=== PATIENT | female | born 1945 | race Caucasian/White ===

== ENCOUNTER 2019-09-03 13:37 | Emergency (ER) | payer OTHER, SELFPAY ==
--- NOTE | ~2019-09-03 | US_ITS ---
EXAMINATION: US venous doppler UE DATE: 09/03/2019 14:54 INDICATION: Dialysis site hematoma with left arm swelling post dialysis TECHNIQUE: Mcdermott scale images with and without compression and Doppler images of the left upper extrem ity veins were obtained. COMPARISON: None. FINDINGS: The left internal jugular vein, subclavian vein, axillary vein, brachial veins, basilic vein, cephali c vein, radial vein, and ulnar vein are patent. No evidence for abnormal fluid collection or mass in the area of dialysis site. IMPRESSION: 1. Patent left upper extremity veins. No evidence of deep venous thrombosis. Reviewed, dictated and finalized at location A.
[2019-09-03 13:56] VITALS: BP 132/57; PULSE 80; RESP 16; O2SAT 95
--- NOTE | 2019-09-03 14:13 | ED.GENADULT ---
HPI - General Adult General Chief complaint: Extremity Injury, Upper Stated complaint: bruising to left arm fistula Time Seen by Provider: 09/03/19 14:02 Source: patient and family Mode of arrival: ambulatory Limitations: no limitations History of Present Illness HPI narrative: Patient is a 73-year-old female with a history of end-stage renal disease, on dialysis Monday, Monday, Monday who presents for evaluation of a one-week history of worsening left upper extremity swelling starting her dialysis site. She reports that suddenly a week ago her dialysis site was bruised, painful, bruising has been improving, but swelling has persisted. Patient attended dialysis yesterday and had no complications with her catheter site. Patient follows Dr. Freeman, physician as well as the patient wanted to rule out a blood clot in the left upper extremity. Patient has denied any numbness, pain. No systemic fever, chills, nausea or vomiting. No shortness of breath. No pain in the hand or elbow. No falls or injury. Related Data Home Medications Medication Instructions Recorded Confirmed B complex with C 20-folic acid 1 cap PO DAILY 09/03/19 [Triphrocaps] atorvastatin 40 mg PO DAILY 09/03/19 hydralazine 25 mg PO QID 09/03/19 linagliptin [Tradjenta] 10 mg PO QID 09/03/19 melatonin 10 mg PO HS PRN 09/03/19 ondansetron HCl [Zofran] 4 mg PO Q6H 09/03/19 pantoprazole 40 mg PO QAM 09/03/19 tramadol 100 mg PO Q6H PRN 09/03/19 Allergies Allergy/AdvReac Type Severity Reaction Status Date / Time ibuprofen Allergy Mild Abdominal Verified 09/03/19 13:59 Pain Review of Systems Review of Systems: Narrative: CONSTITUTIONAL: Denies fever, chills, or sweats. ENT: Denies rhinorrhea, congestion, sore throat, or otalgia. CARDIOVASCULAR: Denies chest pain, palpitations, or edema. RESPIRATORY: Denies cough or dyspnea. GASTROINTESTINAL: Denies abdominal pain, nausea, vomiting, or diarrhea. SKIN: Reports bruising left upper extremity MUSCULOSKELETAL: Denies back pain, joint pain, or myalgia. NEUROLOGIC: Denies headache, numbness, or weakness. [facility] Past Medical History Medical History (Updated 04/28/20 @ 15:38 by Tiara Urrutia MD) Arthritis Chronic kidney disease Depression Diabetes Gout Hypertension Hypothyroidism Nephrolithiasis Pneumonia Surgical History Surgical History (Updated 09/03/19 @ 14:17 by Tiara Urrutia MD) H/O inguinal hernia repair Hx of tonsillectomy Social History Social History (Updated 09/03/19 @ 14:18 by Tiara Urrutia MD) Smoking status: Never smoker Alcohol intake: never Substance use: never Gender identity (if verbalized by the patient): Female Exam Narrative: Exam Narrative: GENERAL: Awake, alert, conversant HEAD: Normocephalic, atraumatic. EYES: PERRLA and EOMI. ENT: Nares clear, no rhinorrhea or epistaxis. Mucous membranes moist. NECK: Supple. CHEST: No respiratory distress, breathing even and non labored HEART: Regular rate, sinus rhythm ABDOMEN:Non distended, non tender EXTREMITIES: Normal range of motion. Old ecchymosis, hematoma to left upper extremity, mildly firm, overall compartment is soft. Intact bruit over the dialysis catheter site. Radial pulses 2+. No numbness. Intact sensation. Forging [employer] Sinker strength 5 out of 5. Intact sensation m/u/r nerve distribution. SKIN: Warm, dry, no rash. NEURO:No focal deficits. Alert and oriented x3 Course Vital Signs Vital signs: Vital Signs Pulse Rate 80 09/03/19 13:56 Respiratory Rate 16 09/03/19 13:56 Blood Pressure 132/57 L 09/03/19 13:56 Pulse Oximetry 95 09/03/19 13:56 Pulse Rate 80 09/03/19 13:56 Respiratory Rate 16 09/03/19 13:56 Blood Pressure 132/57 L 09/03/19 13:56 Pulse Oximetry 95 09/03/19 13:56 Medical Decision Making MDM Narrative Medical decision making narrative: Patient presented to the emergency department for evaluation of left upper extremity edema, swelling surround
[2019-09-03 15:20] LABS: Basophils Percent Auto 0.4 % (0.2-1.2); Eosinophils Absolute Auto 0.1 K/mm3 (0-0.3); Eosinophils Percent Auto 1.2 % (0-4.4); Hematocrit 36.3 % (37.0-47.0); Hemoglobin 11.4 g/dL (12.0-15.0); Immature Granulocyte Absolute 0.04 K/mm3 (0.00-0.031); Immature Granulocyte Percent A 0.6 % (0-0.5); Lymphocytes Absolute Auto 1.31 K/mm3 (0.9-3.2); Lymphocytes Percent Auto 19.1 % (18.3-44.2); Mean Corpuscular HGB Conc 31.4 g/dl (32-36); Mean Corpuscular Hemoglobin 31.2 pg (26-34); Mean Corpuscular Volume 99.5 fl (80-100); Mean Platelet Volume 10.9 fl (7.4-10.4); Monocytes Absolute Auto 0.4 K/mm3 (0.1-0.6); Monocytes Percent Auto 5.2 % (2.6-8.5); Neutrophils Percent Auto 73.5 % (45.5-73.1); Platelet Count Result 141 k/mm3 (150-375); Red Blood Count 3.65 M/mm3 (4.2-5.4); Red Cell Distribution Width 13.1 % (11.5-14.5); White Blood Count 6.9 K/mm3 (4.5-10.0)
[2019-09-03 15:29] LABS: Prothrombin Time 12.7 Seconds (11.1-14.7)
[2019-09-03 15:32] LABS: Blood Urea Nitrogen 46 mg/dL (7-17); Calcium 8.6 mg/dL (8.4-10.2); Carbon Dioxide 27 mmol/L (22-30); Chloride 100 mmol/L (98-107); Estimated Glomerular Filt Rate 10; Glucose 128 mg/dL (65-105); Potassium 4.8 mmol/L (3.4-5.0); Sodium 136 mmol/L (137-145)
[2019-09-03 15:52] VITALS: BP 126/60; PULSE 73; RESP 16; TEMP 36.2; O2SAT 96
== END 2019-09-03 15:54 | disposition home or self-care (01) ==
PROVIDERS: Emergency Provider Emergency Medicine; PCP Family Medicine Adolescent Medicine
DX: S40.022A Contusion of left upper arm, initial encounter (principal); I12.0 Hypertensive chronic kidney disease with stage 5 chronic kidney disease or end stage renal disease; N18.6 End stage renal disease; Z99.2 Dependence on renal dialysis; M19.90 Unspecified osteoarthritis, unspecified site; F32.9 Major depressive disorder, single episode, unspecified; E03.9 Hypothyroidism, unspecified; X58.XXXA Exposure to other specified factors, initial encounter
CPT/HCPCS: 36415; 80048; 85025; 85610; 85730; 93971; 99284

== ENCOUNTER → 2021-03-06 00:58 | Outpatient (CLI) | payer OTHER, SELFPAY ==
[2021-03-06 18:23] LABS: SARS-CoV-2 RNA PCR Negative
== END ==
PROVIDERS: PCP Family Medicine Adolescent Medicine; Visit Provider Family Medicine Adolescent Medicine
DX: R05.9 Cough, unspecified (principal); Z20.822 Contact with and (suspected) exposure to COVID-19
CPT/HCPCS: C9803; U0003; U0005

== ENCOUNTER 2021-08-25 17:51 | Emergency (ER) | payer OTHER, SELFPAY ==
--- NOTE | ~2021-08-25 | XR_ITS ---
EXAMINATION: XR chest 1V portable INDICATION: Cough, history of hypertension TECHNIQUE: Portable AP chest at 1907 hours COMPARISON: 07/27/2017 FINDINGS: Cardiomegaly is noted. There is a mild diffuse interstitial pattern. There are no focal air space opacities. No pleural effusion or pneumothorax is identified. IMPRESSION: 1. Cardiomegaly with mild pulmonary edema. Reviewed, dictated and finalized at location F.
[2021-08-25 17:53] VITALS: BP 196/71; RESP 18; TEMP 36.4; O2SAT 97
[2021-08-25 18:15] LABS: Basophils Percent Auto 0.3 % (0.2-1.2); Eosinophils Absolute Auto 0.1 K/mm3 (0-0.3); Eosinophils Percent Auto 0.9 % (0-4.4); Hematocrit 32.5 % (37.0-47.0); Hemoglobin 10.3 g/dL (12.0-15.0); Immature Granulocyte Absolute 0.03 K/mm3 (0.00-0.031); Immature Granulocyte Percent A 0.5 % (0-0.5); Lymphocytes Absolute Auto 0.73 K/mm3 (0.9-3.2); Lymphocytes Percent Auto 11.4 % (18.3-44.2); Mean Corpuscular HGB Conc 31.7 g/dl (32-36); Mean Corpuscular Volume 100.9 fl (80-100); Mean Platelet Volume 10.2 fl (7.4-10.4); Monocytes Absolute Auto 0.4 K/mm3 (0.1-0.6); Monocytes Percent Auto 5.6 % (2.6-8.5); Neutrophils Absolute Auto 5.2 K/mm3 (1.3-6.7); Neutrophils Percent Auto 81.3 % (45.5-73.1); Platelet Count Result 121 k/mm3 (150-375); Red Blood Count 3.22 M/mm3 (4.2-5.4); Red Cell Distribution Width 12.9 % (11.5-14.5); White Blood Count 6.4 K/mm3 (4.5-10.0)
[2021-08-25 18:27] LABS: Alanine Aminotransferase 18 U/L (4-35); Albumin Level 4.3 g/dL (3.5-5.1); Alkaline Phosphatase 87 U/L (38-126); Anion Gap 8 mmol/L (8-16); Aspartate Amino Transferase 32 U/L (14-36); Bilirubin,Total 0.5 mg/dL (0.2-1.3); Blood Urea Nitrogen 39 mg/dL (7-17); Carbon Dioxide 25 mmol/L (22-30); Chloride 101 mmol/L (98-107); Estimated Glomerular Filt Rate 9; Glucose 124 mg/dL (65-110); Lipase 222 U/L (23-300); Potassium 5.5 mmol/L (3.4-5.0); Sodium 134 mmol/L (137-145)
[2021-08-25 19:30] VITALS: O2SAT 96
--- NOTE | 2021-08-25 19:48 | ED.GENADULT ---
HPI - General Adult General Chief complaint: Upper Respiratory Infection Stated complaint: cough & diarrhea x 2 weeks Time Seen by Provider: 08/25/21 18:04 Source: patient and family Mode of arrival: ambulatory Limitations: no limitations History of Present Illness HPI narrative: 75-year-old with a history of hypertension, diabetes, ESRD on dialysis Monday here with complaints of cough for past few weeks. Patient states that occasionally the cough is productive in nature. She denies any fever or chills. Patient states that she has missed 2 dialysis treatment as she states that she was not feeling too well. She denies nausea or vomiting. She endorses Dr. Freeman as her maltster. She also states that her primary called and [facility] and [facility] for her cough Onset (ago): week(s) (2) Severity: mild Relieving factors: none Associated symptoms: denies other symptoms Related Data Home Medications Medication Instructions Recorded Confirmed linagliptin [Tradjenta] 5 mg PO QID 09/03/19 Allergies Allergy/AdvReac Type Severity Reaction Status Date / Time ibuprofen Allergy Mild Abdominal Verified 08/25/21 18:01 Pain Review of Systems Review of Systems: All systems reviewed & are unremarkable except as noted in HPI and below Constitutional: Constitutional: Reports no additional constitutional complaints Eyes: Eyes: Reports no additional eye complaints ENT: Reports system reviewed and no additional complaints, except as documented Cardiovascular: Cardiovascular: Reports no additional cardiovascular complaints Respiratory: Respiratory: Reports as per HPI Gastrointestinal: Gastrointestinal: Reports no additional gastrointestinal complaints Musculoskeletal: Musculoskeletal: Reports no additional musculoskeletal complaints Integumentary/Breasts: Skin/Breast: Reports system reviewed and no additional complaints, except as docu Neurologic: Reports system reviewed and no additional complaints, except as documented Endocrine: Endocrine: Reports no additional endocrine complaints [facility] Past Medical History Medical History Arthritis Chronic kidney disease Depression Diabetes Gout Hypertension Hypothyroidism Nephrolithiasis Pneumonia Primary localized osteoarthritis of knees, bilateral Surgical History Surgical History H/O inguinal hernia repair Hx of tonsillectomy Social History Social History Smoking status: Never smoker Alcohol intake: never Substance use: never Gender identity (if verbalized by the patient): Female Exam Narrative: GENERAL: Well-appearing, well-nourished, and in no acute distress. HEAD: Normocephalic, atraumatic. EYES: PERRLA and EOMI.. NECK: Supple. CHEST: Clear to auscultation. No respiratory distress. HEART: Regular rate and rhythm. No murmur heard. Normal peripheral pulses. ABDOMEN: Soft, nontender, nondistended, normal active bowel sounds. EXTREMITIES: Normal range of motion. No edema. SKIN: Warm, dry, no rash. NEURO: No focal deficits. Alert and oriented x3. PSYCH: Normal mood and affect. Course Course Emergency Course: Her physical is unremarkable , chest x-ray showed no evidence of pneumonia. I discussed with Dr. Freeman recommended Lokelma 10 g p.o. prior to discharge I did inform patient about her lab work, chest x-ray findings. Recommended her to get dialysis tomorrow. Vital Signs Vital signs: Vital Signs Temperature 36.4 C 08/25/21 17:53 Respiratory Rate 18 08/25/21 17:53 Blood Pressure 196/71 H 08/25/21 17:53 Pulse Oximetry 97 08/25/21 17:53 Temperature 36.4 C 08/25/21 17:53 Respiratory Rate 18 08/25/21 17:53 Blood Pressure 196/71 H 08/25/21 17:53 Pulse Oximetry 97 08/25/21 17:53 Medical Decision Making Vital Signs Vital Signs: Vi
[2021-08-25] MEDS: SODIUM ZIRCONIUM CYCLOSILICATE 10 GM POWD.PACK PO (19:55)
[2021-08-25 20:22] VITALS: BP 162/98; PULSE 84; RESP 16; O2SAT 96
== END 2021-08-25 20:03 | disposition home or self-care (01) ==
PROVIDERS: Emergency Provider Family Medicine; PCP Family Medicine Adolescent Medicine
DX: J40 Bronchitis, not specified as acute or chronic (principal); E87.5 Hyperkalemia; M19.90 Unspecified osteoarthritis, unspecified site; I12.9 Hypertensive chronic kidney disease with stage 1 through stage 4 chronic kidney disease, or unspecified chronic kidney disease; E11.22 Type 2 diabetes mellitus with diabetic chronic kidney disease; N18.9 Chronic kidney disease, unspecified; F32.9 Major depressive disorder, single episode, unspecified; E03.9 Hypothyroidism, unspecified
CPT/HCPCS: 36415; 71045; 80053; 83690; 85025; 99283; A9270

== ENCOUNTER 2021-12-03 16:54 | Inpatient (IN) | payer OTHER, SELFPAY ==
[2021-12-03] VITALS (8 sets, daily range): BP systolic 122–145; BP diastolic 51–61; PULSE 71–110; RESP 16–28; TEMP 36.1–36.8; O2SAT 88–99; BMI 36.4
--- NOTE | ~2021-12-03 | XR_ITS ---
XR chest 2V 12/03/2021 17:32 Indication: Shortness of breath. Hypertension. Pneumonia. Procedure: 2 view chest Comparison: Comparison to multiple prior studies sequentially, with oldest reviewed study dated 07/2003. Findings: Interval development of extensive bilateral airspace consolidation, pneumonia versus edema. Small right pleural effusion. No pneumothorax. Cardiomegaly. There is atherosclerosis. Impression: 1: Extensive bilateral airspace disease which may represent pneumonia or edema. 2: Small right pleural effusion. 3: Cardiomegaly. Reviewed, dictated and finalized at location A. Impression: 1: Extensive bilateral airspace disease which may represent pneumonia or edema. 2: Small right pleural effusion. 3: Cardiomegaly.
--- NOTE | ~2021-12-03 | XR_ITS ---
EXAMINATION: XR chest 1V portable DATE: 12/07/2021 06:56 INDICATION: Pneumonia. TECHNIQUE: A single frontal view of the chest was obtained. COMPARISON: Chest 2 views 12/03/2021, CT abdomen and pelvis 10/08/2017 FINDINGS: There are patchy airspace opacities in the mid and lower lung zones. No pleural effusion or pneumothorax. The heart size is normal. IMPRESSION: 1. Stable patchy airspace opacities in the mid and lower lung zones, consistent with pneumonia. Reviewed, dictated and finalized at location A.
--- NOTE | 2021-12-03 17:09 | ECG_ITS ---
Measurements Intervals [place] Rate: 86 P: 69 NV: 229 QRS: 19 QRSD: 163 T: -8 QT: 368 QTc: 443 Interpretive Statements SINUS RHYTHM WITH FIRST DEGREE AV BLOCK RIGHT BUNDLE BRANCH BLOCK BASELINE WANDER- V2-V6 ABNORMAL ECG Electronically Signed On 12-03-2021 20:27:33 CDT by Jose Luis Sánchez D.O.
[2021-12-03 18:04] LABS: SARS-CoV-2 RNA PCR Negative
[2021-12-03 18:06] LABS: Hematocrit 30.2 % (37.0-47.0); Hemoglobin 9.5 g/dL (12.0-15.0); Mean Corpuscular HGB Conc 31.5 g/dl (32-36); Mean Corpuscular Hemoglobin 31.9 pg (26-34); Mean Corpuscular Volume 101.3 fl (80-100); Mean Platelet Volume 9.5 fl (7.4-10.4); Platelet Count Result 140 k/mm3 (150-375); Red Blood Count 2.98 M/mm3 (4.2-5.4); Red Cell Distribution Width 13.3 % (11.5-14.5); White Blood Count 6.8 K/mm3 (4.5-10.0)
--- NOTE | 2021-12-03 18:06 | ED.SOB ---
HPI - SOB/Dyspnea General Chief Complaint: Shortness of Breath/Dyspnea Stated Complaint: SOB Time Seen by Provider: 12/03/21 17:03 History of Present Illness HPI Narrative: Patient is a 76-year-old female who presents ER with shortness of breath. Progressively worsening the last 4 days. Associate with cough. No fevers or chills or sweats. No lower extremity edema. She has had multiple COVID tests at home that been negative. She received dialysis today. Shortness of breath worsened to the point where EMS was called and she was found to be satting in the 80s on room air. Not typically oxygen dependent. Patient got her full dialysis treatment today. Related Data Allergies Allergy/AdvReac Type Severity Reaction Status Date / Time ibuprofen Allergy Mild Abdominal Verified 08/25/21 18:01 Pain Review of Systems Review of Systems: All systems reviewed & are unremarkable except as noted in HPI and below Constitutional: Constitutional: Reports chills, Reports fatigue and Reports fever(s) ENT: Denies dysphagia and Denies nasal congestion Cardiovascular: Cardiovascular: Denies chest pain and Denies rapid heart rate Respiratory: Respiratory: Reports cough, Reports dyspnea and Reports wheezing Gastrointestinal: Gastrointestinal: Denies nausea and Denies vomiting PMF Past Medical History Medical History Arthritis Chronic kidney disease Depression Diabetes Gout Hypertension Hypothyroidism Nephrolithiasis Pneumonia Primary localized osteoarthritis of knees, bilateral Surgical History Surgical History H/O inguinal hernia repair Hx of tonsillectomy Social History Social History Smoking status: Never smoker Alcohol intake: never Substance use: never Gender identity (if verbalized by the patient): Female Course Course Emergency Course: Given recent febrile illness with cough hypoxia and bandemia will admit for pneumonia and give IV antibiotics. Vital Signs Vital signs: Vital Signs Temperature 98.3 F 12/03/21 16:56 Pulse Rate 110 H 12/03/21 16:56 Respiratory Rate 28 H 12/03/21 16:56 Blood Pressure 145/52 H 12/03/21 16:56 Pulse Oximetry 88 L 12/03/21 16:56 Oxygen Delivery Room Air 12/03/21 16:56 Temperature 98.3 F 12/03/21 16:56 Pulse Rate 109 H 12/03/21 17:10 Respiratory Rate 28 H 12/03/21 16:56 Blood Pressure 145/52 H 12/03/21 16:56 Pulse Oximetry 94 12/03/21 19:01 Oxygen Delivery Nasal Cannula 12/03/21 19:01 Oxygen Flow Rate 4 12/03/21 19:01 MDM - SOB/Dyspnea Lab Data Result diagrams: 12/03/21 17:57 12/03/21 17:57 Labs: Lab Results 12/03/21 12/03/21 12/03/21 Range/Units 17:18 17:57 17:57 WBC 6.8 (4.5-10.0) K/mm3 RBC 2.98 L (4.2-5.4) M/mm3 Hgb 9.5 L (12.0-15.0) g/dL Hct 30.2 L (37.0-47.0) % MCV 101.3 H (80-100) fl MCH 31.9 (26-34) pg MCHC 31.5 L (32-36) g/dl RDW 13.3 (11.5-14.5) % Plt Count 140 L (150-375) k/mm3 MPV 9.5 (7.4-10.4) fl Immature Gran % (Auto) Not Reportable Neut % (Auto) Not Reportable Lymph % (Auto) Not Reportable Amelia % (Auto) Not Reportable Eos % (Auto) Not Reportable Baso % (Auto) Not Reportable Lymph # (Auto) Not Reportable Amelia # (Auto) Not Reportable Eos # (Auto) Not Reportable Baso # (Auto) Not Reportable Abs Immat Gran (auto) Not Reportable Absolute Neuts (auto) Not Reportable Absolute Nucleated RBC Not Reportable Total Counted 100 Neutrophils % (Manual) 78 H (46-73) % Band Neutrophils % 10 H (0-6) % Lymphocytes % (Manual) 6 L (18-44) % Monocytes % (Manual) 5 (3-9) % Eosinophils % (Manual) 1 (0-4) % Nucleated RBC % Not Reportable Abs Neuts (Manual) 5.98 (1.7-7.2) K/mm3 Abs L
[2021-12-03 18:18] LABS: Alanine Aminotransferase 22 U/L (6-35); Albumin Level 3.3 g/dL (3.5-5.1); Alkaline Phosphatase 138 U/L (38-126); Anion Gap 8 mmol/L (8-16); Aspartate Amino Transferase 35 U/L (14-36); Blood Urea Nitrogen 29 mg/dL (7-17); Calcium 9.2 mg/dL (8.4-10.2); Carbon Dioxide 35 mmol/L (22-30); Chloride 91 mmol/L (98-107); Estimated Glomerular Filt Rate 11; Glucose 249 mg/dL (65-110); Potassium 4.5 mmol/L (3.4-5.0); Sodium 134 mmol/L (137-145)
[2021-12-03 18:25] LABS: NT Pro B Type Natriuretic Pept 15300 pg/mL (5-100)
[2021-12-03 18:32] LABS: Band Neutrophils Percent 10 % (0-6); Eosinophils Absolute Manual 0.06 K/mm3 (0.02-0.5); Eosinophils Percent Manual 1 % (0-4); Lymphocytes Percent Manual 6 % (18-44); Monocytes Absolute Manual 0.34 K/mm3 (0.1-0.90); Monocytes Percent Manual 5 % (3-9); Neutrophils Absolute Manual 5.98 K/mm3 (1.7-7.2); Neutrophils Percent Manual 78 % (46-73); Total Cells Counted 100
--- NOTE | 2021-12-03 19:08 | PC.NURSE ---
Patient care report given to JOSUE Barnes. All questions answered at this time.
--- NOTE | 2021-12-03 19:11 | PC.NURSE ---
per EDP patient is allowed to eat. [place] and drink given.
--- NOTE | 2021-12-03 19:49 | PM.IMHP ---
H&P: HPI History of Present Illness Date/Time: 12/03/21 19:49 Chief Complaint: shortness of breath Narrative: this is a 76-year-old female with past medical history significant for end-stage renal disease on hemodialysis, tab [place] diabetes mellitus, hypertension, nephrolithiasis. patient presents today to the emergency room due to shortness of breath generalized weakness, fatigue, had to skip her dialysis due to not feeling well, patient denies any fevers, rigors, chills, night sweats, nausea, vomiting, abdominal pain. Preliminary workup was significant for chest x-ray1:Extensive bilateral airspace disease which may represent pneumonia or edema. 2: Small right pleural effusion. 3: Cardiomegaly. Review of Systems Review of Systems: shortness of breath feeling unwell generalized weakness, fatigue Constitutional: Constitutional: Denies chills, Reports fatigue, Denies fever(s), Reports lethargy, Reports malaise, Denies night sweats and Reports weakness Eyes: Eyes: Denies change in vision ENT: Denies dysphagia, Denies vertigo, Denies dizziness and Denies odynophagia Cardiovascular: Cardiovascular: Denies chest pain, Denies syncope, Denies irregular heart rhythm, Denies lightheadedness, Denies palpitations and Denies dyspnea on exertion Respiratory: Respiratory: Reports cough and Reports dyspnea Gastrointestinal: Gastrointestinal: Denies abdominal pain, Denies dyspepsia, Denies heartburn, Denies nausea and Denies vomiting Musculoskeletal: Musculoskeletal: Denies arthralgias and Denies joint swelling Integumentary/Breasts: Skin/Breast: Denies rash Neurologic: Denies vertigo, Denies dizziness, Denies focal weakness and Denies Sensory deficit (Neuro) Psychiatric: Psychiatric: Reports no additional psychiatric complaints and Reports as per HPI Endocrine: Endocrine: Denies cold intolerance, Denies fatigue, Denies flushing, Denies heat intolerance, Denies polyphagia, Denies polydipsia and Denies palpitations Hematologic/Lymphatic: Hematologic/Lymphatic: Reports no additional hematologic/lymphatic complaints and Reports as per HPI Allergic/Immunologic: Allergic/Immunologic: Reports no additional allergic/immunologic complaints and Reports as per HPI PMFSH Past Medical History Medical History Arthritis Chronic kidney disease Depression Diabetes Gout Hypertension Hypothyroidism Nephrolithiasis Pneumonia Primary localized osteoarthritis of knees, bilateral Surgical History Surgical History H/O inguinal hernia repair Hx of tonsillectomy Social History Social History Smoking status: Never smoker Alcohol intake: never Substance use: never Gender identity (if verbalized by the patient): Female Spiritual care concerns: No Meds Home Medications and Allergies Home Medications Medication Instructions Recorded Confirmed Type levothyroxine 112 mcg tablet 112 mcg PO DAILY #90 tabs 08/23/21 12/03/21 Rx azithromycin 250 mg tablet See Rx Instructions PO .COMPLEX #6 08/24/21 12/03/21 Rx tabs benzonatate 200 mg capsule 200 mg PO TID PRN cough #30 caps 08/24/21 12/03/21 Rx tramadol 50 mg tablet 100 mg PO Q6H PRN Pain (Scale 11/01/21 12/03/21 Rx Score 4-6) #120 tabs albuterol sulfate 90 mcg/actuation 2 inh inhalation QID PRN shortness 11/30/21 12/03/21 Rx aerosol inhaler of breath or wheezing #8.5 grams atorvastatin 40 mg tablet 40 mg PO DAILY 12/03/21 12/03/21 History linagliptin 5 mg tablet (Tradjenta) 5 mg PO DAILY 12/03/21 12/03/21 History ondansetron 4 mg disintegrating 4 mg translingual Q6H PRN Nausea 12/03/21 12/03/21 History tablet sertraline 50 mg tablet 50 mg PO DAILY 12/03/21 12/03/21 History Allergies Allergy/AdvReac Type Severity Reaction Status Date / Time ibuprofen Allergy Mild Abdominal Verified 12/03/21 23:22 Pain
[2021-12-03] MEDS: ALBUTEROL SULFATE NEB 2.5 MG/3 ML INH 5 MG INHALATION (20:02)
[2021-12-03] MEDS: IPRATROPIUM BR 0.02% INH SOLN 0.5 MG/2.5 ML VIAL INHALATION (20:02)
--- NOTE | 2021-12-03 23:39 | ADMGEN ---
This patient, Gisele Centeno, was admitted to [facility] Surg Room 309-01. Patient/family oriented to hospital policies and general routines including ID bracelet, bed and alarms, visiting hours, pain management, procedures, bathroom and other care routines, personal items, smoking policy, room service/diet, and visiting hours. Information on how to activate the Rapid Response Team has been discussed. Patient/Family are encouraged to report perceived risks to care and to ask questions if they do not understand what they are told or what they should do.
[2021-12-04] VITALS (26 sets, daily range): BP systolic 126–157; BP diastolic 46–83; PULSE 56–78; RESP 14–18; TEMP 36.1–37; O2SAT 94–100
[2021-12-04 02:10] LABS: Glucose Point of Care 330 mg/dl (65-105)
[2021-12-04] MEDS: ALBUTEROL SULFATE NEB 2.5 MG/3 ML INH 5 MG INHALATION ×3 (02:20→20:09)
[2021-12-04] MEDS: IPRATROPIUM BR 0.02% INH SOLN 0.5 MG/2.5 ML VIAL INHALATION ×3 (02:20→20:08)
[2021-12-04 08:16] LABS: Glucose Point of Care 219 mg/dl (65-105)
[2021-12-04] MEDS: ATORVASTATIN 40 MG TABLET PO (08:33)
[2021-12-04] MEDS: SERTRALINE HCL 50 MG TABLET PO (08:33)
[2021-12-04] MEDS: LEVOTHYROXINE SODIUM 112 MCG TABLET PO (08:33)
[2021-12-04] MEDS: INSULIN ASPART (*BKC) 100 UNITS/ML SUB-Q ×3 (08:33→12:08)
--- NOTE | 2021-12-04 09:05 | PM.IMPN ---
Progress Note: A&P Assessment and Plan (1) Pneumonia: Code(s): J18.9 - Pneumonia, unspecified organism Status: Acute Assessment and Plan: - Blood cultures are pending. - Continue IV abx of Rocephin and Azithromycin. - Monitor labs and VS. - Continue Atrovent Nebulizer treatment. - Continue supplemental oxygen. Consider weaning as tolerated. (2) End stage renal disease: Code(s): N18.6 - End stage renal disease Status: Chronic Assessment and Plan: - Awaiting Nephrology consult. - M-W- schedule and did receive treatment yesterday. - Monitor labs and VS. (3) Type 2 diabetes mellitus with diabetic chronic kidney disease: Code(s): E11.22 - Type 2 diabetes mellitus with diabetic chronic kidney disease Status: Acute Assessment and Plan: - SSI Low dose - Hypoglycemic protocol - Renal diet - Accu checks AC and HS. (4) Hypertensive chronic kidney disease with stage 1 through stage 4 chronic kidney disease, or unspecified chronic kidney disease: Code(s): I12.9 - Hypertensive chronic kidney disease with stage 1 through stage 4 chronic kidney disease, or unspecified chronic kidney disease Status: Chronic Assessment and Plan: - Continue home medications and monitor BP. Additional Plan Barrier to discharge: Improvement of breathing with weaning of supplemental oxygen, and resulting of Blood cultures. Awaiting Nephrology consult. Time Spent With Patient Time: 21 minutes Subjective Date/time seen: 12/04/21 09:04 This pleasant 76-year-old female patient is examined at the bedside in interval assessment after being admitted to the hospital for pneumonia with dyspnea. Requiring 3 L of supplemental oxygen to maintain her saturations currently. She does not normally wear oxygen at home. It was initially explained on presentation the patient had missed her dialysis session yesterday, however patient adamantly denies missing any dialysis and said she just felt bad during dialysis. She currently denies any chest pain, does report some continued cough that is productive at times of yellow sputum, some shortness of breath, no nausea, vomiting, diarrhea, urinary complaints. Her normal dialysis schedule is Monday. We are awaiting consult of Nephrology during this admission, however patient does appear to be euvolemic at this time. She reports that she is feeling slightly better today but is very tired. Review of Systems Review of Systems: Twelve point review of systems was obtained. All systems reviewed & are unremarkable except as noted in HPI and below Exam Const: General: comfortable and no acute distress HENMT: Ears: TM's normal bilaterally and TMs normal General nose exam: Normal nares present and no epistaxis Mouth: Yes moist mucous membranes Eyes: General: appearance normal, both eyes and all related structures Sclera: sclerae normal and normal sclerae Pupils: Equal, round and reactive pupils present EOM: EOMs intact bilaterally Neck: Neck: supple and no JVD Thyroid: thyroid normal Carotids: no bruits Lymphatic: lymphadenopathy not noted Resp: Effort & Inspection: normal respiratory effort Auscultation: crackles bilateral at the base Cardio: Rate: regular rate Rhythm: regular rhythm Heart sounds: no gallops, no murmurs and no rubs GI: Inspection: non-distended GI Palp: Yes Soft to palpation, No Tenderness to palpation present (GI) and No Guarding due to palpation present (GI) Auscultation: normal bowel sounds Skin: General skin exam: normal color and no rashes or lesions noted Lesions: no lesions noted Rashes: no rashes noted Wounds: no wounds Neuro: General: gait normal Speech: normal speech Motor exam (neuro): 5/5 motor strength present throughout and Normal motor muscle tone present throughout Sensory Exam: normal sensation Extrem: General: normal to inspection, no edema and no pedal edema Other: Left upper arm - av gra
--- NOTE | 2021-12-04 11:25 | PM.CNNEP ---
Assessment and Plan Additional Plan 1. Gisele has end-stage renal disease. This is most likely due to diabetes and hypertension. She gets dialysis 3 times a week at [facility]. She has been getting to her dry weight however, looking at the flow sheets over the last week she has come in at or below her dry weight for the last few treatments. 2. The patient has shortness of breath and cough. I suspect that she has lost weight and that we need to adjust her dry weight again. She probably isn't eating as well as she lets on and her daughter is corrected try to get her to eat more. There is a suspicion that she might have pneumonia as well. She has no fever and no white count. She is on antibiotics just in case until we figure this out. 3. the patient is on medication for her hyperlipidemia. 4. Patient has diabetes. Management per hospitalists. 5. The patient has hypertension. Her blood pressures have been up and down generally between 122 and 145. Removing fluid will help this. 6. The patient seems to have lost her appetite. She has no belly pain. No nausea. Will try Remeron. History of Present Illness Reason for Consult Consult date: 12/04/21 Chief Complaint Chief complaint: pneumonia, hypoxia History of Present Illness Narrative: Gisele is a very pleasant 76-year-old lady who has multiple medical problems including end-stage renal disease on dialysis 3 times a week at [facility], hyperlipidemia, reversible airways disease, depression, hypertension, diabetes, hypothyroidism, gout, nephrolithiasis in the past, osteoarthritis. The patient was at home and her daughter noted that she was talking out of her head and also had shortness of breath and cough. She brought her mom to the emergency room. In the ER she was evaluated found to have bilateral infiltrates, shortness of breath with cough, but no fever. She had a COVID swab which was negative. Chest x-ray showed the infiltrates. She was admitted. She was placed on antibiotics. The patient went to dialysis on Monday but then did not go on Monday case she was feeling poorly and then did go yesterday because I just had to go to dialysis since a missed on Monday . She says that her shortness of breath has been worse gradually over the last few days. She has had more cough. She used to be on lisinopril and then was switched to losartan and the cough improved but in the last week her cough has worsened again. She has not have sores in her mouth she does not cough up blood no sinus issues. No fevers or chills at home. No chest pain. She eats 3 meals a day. The patient says she is fine but the daughter says that she has constant fighting with her over trying to eat every meal. A few months ago she had been in the hospital with fluid overload. This is mostly because she lost weight. Her dry weight was adjusted and she did okay. Since then, her blood pressure has been better and she has not had shortness of breath or cough up until the last week or so. Review of Systems Constitutional: Constitutional: Reports no additional constitutional complaints Eyes: Eyes: Reports no additional eye complaints ENT: Reports system reviewed and no additional complaints, except as documented Cardiovascular: Cardiovascular: Reports no additional cardiovascular complaints Respiratory: Respiratory: Reports no additional respiratory complaints Gastrointestinal: Gastrointestinal: Reports no additional gastrointestinal complaints Genitourinary: Genitourinary: Reports no additional female genitourinary complaints Musculoskeletal: Musculoskeletal: Reports no additional musculoskeletal complaints Integumentary/Breasts: Skin/Breast: Reports system reviewed and no additional complaints, except as docu Neurologic: Reports system reviewed and no additional complaints, except as documented Psychiatric: Psychiatric: Reports no additional psychiatric co
[2021-12-04 11:39] LABS: Hepatitis B Surface Antigen Negative (Negative)
[2021-12-04 11:45] LABS: Glucose Point of Care 405 mg/dl (65-105)
[2021-12-04] MEDS: VITAMIN B CMPLX/VIT C/FOLIC AC 1 CAPSULE 1 CAP BY MOUTH (13:28)
[2021-12-04] MEDS: CALCIUM ACETATE 667 MG TABLET BY MOUTH ×2 (13:28→17:36)
[2021-12-04] MEDS: HEPARIN SODIUM 5,000 UNITS/ML VIAL 5000 UNITS SUB-Q ×2 (13:29→20:54)
[2021-12-04 16:16] LABS: Hepatitis B Surface Anti Res Positive
[2021-12-04] MEDS: DOCUSATE SODIUM 100 MG CAPSULE PO (17:36)
[2021-12-04 17:39] LABS: Glucose Point of Care 147 mg/dl (65-105)
[2021-12-04] MEDS: MIRTAZAPINE 7.5 MG TABLET PO (20:54)
[2021-12-04 21:44] LABS: Glucose Point of Care 251 mg/dl (65-105)
[2021-12-05] VITALS (16 sets, daily range): BP systolic 142–154; BP diastolic 45–71; PULSE 68–78; RESP 16–20; TEMP 36.1–36.2; O2SAT 94–99
[2021-12-05] MEDS: ALBUTEROL SULFATE NEB 2.5 MG/3 ML INH 5 MG INHALATION ×4 (02:44→20:27)
[2021-12-05] MEDS: IPRATROPIUM BR 0.02% INH SOLN 0.5 MG/2.5 ML VIAL INHALATION ×4 (02:44→20:27)
[2021-12-05] MEDS: HEPARIN SODIUM 5,000 UNITS/ML VIAL 5000 UNITS SUB-Q ×3 (05:57→20:49)
[2021-12-05] MEDS: LEVOTHYROXINE SODIUM 112 MCG TABLET PO (05:57)
[2021-12-05 06:32] LABS: Albumin Level 3.7 g/dL (3.5-5.1); Anion Gap 12 mmol/L (8-16); Blood Urea Nitrogen 71 mg/dL (7-17); Calcium 9.8 mg/dL (8.4-10.2); Carbon Dioxide 30 mmol/L (22-30); Chloride 90 mmol/L (98-107); Estimated Glomerular Filt Rate 7; Glucose 95 mg/dL (65-110); Phosphorus 5.6 mg/dL (2.5-4.5); Potassium 4.8 mmol/L (3.4-5.0); Sodium 132 mmol/L (137-145)
[2021-12-05 07:56] LABS: Glucose Point of Care 119 mg/dl (65-105)
[2021-12-05] MEDS: CALCIUM ACETATE 667 MG TABLET BY MOUTH ×3 (08:28→17:14)
[2021-12-05] MEDS: LOSARTAN POTASSIUM 50 MG TABLET PO (08:28)
[2021-12-05] MEDS: ATORVASTATIN 40 MG TABLET PO (08:28)
[2021-12-05] MEDS: DOCUSATE SODIUM 100 MG CAPSULE PO ×2 (08:28→17:14)
[2021-12-05] MEDS: VITAMIN B CMPLX/VIT C/FOLIC AC 1 CAPSULE 1 CAP BY MOUTH (08:28)
[2021-12-05] MEDS: SERTRALINE HCL 50 MG TABLET PO (08:28)
--- NOTE | 2021-12-05 10:22 | PM.PNNEP ---
Progress Note: A&P Additional Plan 1. Gisele has end-stage renal disease. This is most likely due to diabetes and hypertension. She gets dialysis 3 times a week at [facility]. will get another treatment tomorrow. 2. The patient has shortness of breath and cough. This is better with fluid removal. Will remove more fluid tomorrow. 3. the patient is on medication for her hyperlipidemia. 4. Patient has diabetes. Management per hospitalists. 5. The patient has hypertension. Her blood pressures have been up and down generally between 122 and 145. Removing fluid will help this. 6. The patient seems to have lost her appetite. She has no belly pain. She ate 2 pancakes today but did eat her sausage. I I encouraged her to eat everything on her tray Subjective Date/time seen: 12/05/21 10:22 Interval history: Patient feels better today. She had a little bit of cramping in dialysis yesterday. Review of Systems Cardiovascular: Cardiovascular: Reports no additional cardiovascular complaints Respiratory: Respiratory: Reports no additional respiratory complaints Gastrointestinal: Gastrointestinal: Reports no additional gastrointestinal complaints Genitourinary: Genitourinary: Reports no additional female genitourinary complaints Exam Narrative: WDWN in NAD skin no rash head ncat lungs Mildly reduced breath sounds at the bases cor reg no rub abd BS+ nontender and soft ext no edema. Objective Data Vital Signs Vital Signs: Vital Signs - 24 hr 12/04/21 14:08 12/04/21 13:58 12/04/21 14:40 Temperature 36.5 C Pulse Rate 77 77 70 Respiratory Rate 18 Blood Pressure 144/83 H 141/65 H 155/66 H Pulse Oximetry Oxygen Delivery Oxygen Flow Rate 12/04/21 14:00 12/04/21 14:20 12/04/21 15:00 Temperature Pulse Rate 74 64 Respiratory Rate Blood Pressure 150/66 H 148/72 H Pulse Oximetry Oxygen Delivery Oxygen Flow Rate 3 12/04/21 15:40 12/04/21 16:00 12/04/21 15:20 Temperature Pulse Rate 60 64 62 Respiratory Rate Blood Pressure 148/63 H 156/66 H 151/68 H Pulse Oximetry Oxygen Delivery Oxygen Flow Rate 12/04/21 16:20 12/04/21 16:40 12/04/21 17:20 Temperature 36.6 C Pulse Rate 60 60 62 Respiratory Rate 16 Blood Pressure 153/66 H 153/67 H 155/69 H Pulse Oximetry Oxygen Delivery Oxygen Flow Rate 12/04/21 17:00 12/04/21 17:11 12/04/21 20:10 Temperature Pulse Rate 60 59 L 71 Respiratory Rate 15 Blood Pressure 133/65 157/61 H Pulse Oximetry Oxygen Delivery Oxygen Flow Rate 12/04/21 20:11 12/04/21 20:22 12/04/21 20:22 Temperature Pulse Rate 71 70 70 Respiratory Rate 17 Blood Pressure Pulse Oximetry 94 96 Oxygen Delivery Nasal Cannula Oxygen Flow Rate 2.5 12/04/21 22:00 12/05/21 02:45 12/05/21 02:55 Temperature 36.1 C L Pulse Rate 78 68 74 Respiratory Rate 14 17 17 Blood Pressure 126/46 L Pulse Oximetry 95 Oxygen Delivery Oxygen Flow Rate 12/05/21 06:00 12/05/21 08:00 12/05/21 08:04 Temperature 36.1 C L Pulse Rate 71 73 73 Respiratory Rate 16 18 18 Blood Pressure 153/71 H Pulse Oximetry 95 96 Oxygen Delivery Nasal Cannula Oxygen Flow Rate 2.5 12/05/21 08:08 12/05/21 09:00 Temperature Pulse Rate 71 Respiratory Rate 18 Blood Pressure Pulse Oximetry 96 Oxygen Delivery Nasal Cannula Oxygen Flow Rate 2 Intake/Output Intake/Output: Intake & Output 12/02/21 12/03/21 12/04/21 12/05/21 23:59 23:59 23:59 23:59 Intake Total 300 1540 990 Output Total 3200 Balance 300 -1660 990 Meds/Results Medications: Active Medications Generic Name Dose Route Start Last Admin Trade Name Malina PRN Reason Stop Dose Admin Acetaminophen 650 mg 12/03/21 19:48 Acetaminophen 325 Mg Tablet PO Q4H PRN Mild Pain (1-3) or Fever Hydrocodone Bitart/Acetaminophen 1 tab 12/03/21 19:48 Hydrocodone/Acetaminophen (*Crx) 5-
[2021-12-05 11:41] LABS: Glucose Point of Care 205 mg/dl (65-105)
[2021-12-05] MEDS: INSULIN ASPART (*BKC) 100 UNITS/ML SUB-Q ×2 (11:46→17:15)
--- NOTE | 2021-12-05 11:47 | PM.IMPN ---
Progress Note: A&P Assessment and Plan (1) Pneumonia: Code(s): J18.9 - Pneumonia, unspecified organism Status: Acute Assessment and Plan: - Blood cultures are pending. - Continue IV abx of Rocephin and Azithromycin. - Monitor labs and VS. - Continue Atrovent Nebulizer treatment. - Continue supplemental oxygen. - Respiratory wean oxygen for sats >92%. (2) End stage renal disease: Code(s): N18.6 - End stage renal disease Status: Chronic Assessment and Plan: - Nephrology to make dialysis arrangements. - M-W- schedule and did receive treatment yesterday. - Monitor labs and VS. (3) Type 2 diabetes mellitus with diabetic chronic kidney disease: Code(s): E11.22 - Type 2 diabetes mellitus with diabetic chronic kidney disease Status: Acute Assessment and Plan: - SSI Low dose - Hypoglycemic protocol - Renal diet - Accu checks AC and HS. (4) Hypertensive chronic kidney disease with stage 1 through stage 4 chronic kidney disease, or unspecified chronic kidney disease: Code(s): I12.9 - Hypertensive chronic kidney disease with stage 1 through stage 4 chronic kidney disease, or unspecified chronic kidney disease Status: Chronic Assessment and Plan: - Continue home medications and monitor BP. (5) Hepatic steatosis: Code(s): K76.0 - Fatty (change of) liver, not elsewhere classified Status: Chronic Time Spent With Patient Time: 15 mintues Subjective Date/time seen: 12/05/21 0896 This pt. was examined at the bedside today in interval assessment. She appears to be more awake and appears that she feels better today. She endorses that she feels as though she is breathing easier this morning. She has no CP, N/V/D/urinary complaints. Her cough remains and it is productive at times. Her oxygen has been able to be weaned from 3L to 2.5L. PT and OT are working with her today. She is improving but not yet at baseline. Review of Systems Review of Systems: All systems reviewed & are unremarkable except as noted in HPI and below Exam Const: General: comfortable and no acute distress HENMT: Ears: TM's normal bilaterally and TMs normal General nose exam: Normal nares present and no epistaxis Mouth: Yes moist mucous membranes Eyes: General: appearance normal, both eyes and all related structures Sclera: sclerae normal and normal sclerae Pupils: Equal, round and reactive pupils present EOM: EOMs intact bilaterally Neck: Neck: supple and no JVD Thyroid: thyroid normal Carotids: no bruits Lymphatic: lymphadenopathy not noted Resp: Effort & Inspection: normal respiratory effort Auscultation: clear to auscultation bilaterally and crackles bilateral at the base Cardio: Rate: regular rate Rhythm: regular rhythm Heart sounds: no gallops, no murmurs and no rubs GI: Inspection: non-distended Auscultation: normal bowel sounds Skin: General skin exam: normal color and no rashes or lesions noted Lesions: no lesions noted Rashes: no rashes noted Wounds: no wounds Neuro: General: gait normal Cranial nerves: Yes Equal, round and reactive pupils present Speech: normal speech Motor exam (neuro): 5/5 motor strength present throughout and Normal motor muscle tone present throughout Sensory Exam: normal sensation Extrem: General: normal to inspection, no edema and no pedal edema Other: Left upper arm - av graft present with a positive bruit and thrill. Psych: Mental Status: mental status grossly normal Affect: normal affect Objective Data Vital Signs Vital Signs: Vital Signs - 24 hr 12/04/21 14:08 12/04/21 13:58 12/04/21 14:40 Temperature 97.7 F Pulse Rate 77 77 70 Respiratory Rate 18 Blood Pressure 144/83 H 141/65 H 155/66 H Pulse Oximetry Oxygen Delivery Oxygen Flow Rate 12/04/21 14:00 12/04/21 14:20 12/04/21 15:00 Temperature Pulse Rate 74 64 Respiratory Rate Blood Pressure 150/66 H 148/72 H Pulse Ox
[2021-12-05 16:56] LABS: Glucose Point of Care 203 mg/dl (65-105)
[2021-12-05] MEDS: MIRTAZAPINE 7.5 MG TABLET PO (20:48)
[2021-12-05] MEDS: PROMETHAZINE HCL 25 MG/ML AMPUL 12.5 MG IV PUSH (22:46)
[2021-12-06] VITALS (27 sets, daily range): BP systolic 92–180; BP diastolic 39–71; PULSE 75–100; RESP 16–20; TEMP 35.4–36.4; O2SAT 93–97
[2021-12-06] MEDS: IPRATROPIUM BR 0.02% INH SOLN 0.5 MG/2.5 ML VIAL INHALATION ×4 (01:30→21:30)
[2021-12-06] MEDS: ALBUTEROL SULFATE NEB 2.5 MG/3 ML INH 5 MG INHALATION ×4 (01:30→21:30)
[2021-12-06] MEDS: HEPARIN SODIUM 5,000 UNITS/ML VIAL 5000 UNITS SUB-Q ×3 (05:42→20:03)
[2021-12-06] MEDS: LEVOTHYROXINE SODIUM 112 MCG TABLET PO (05:42)
[2021-12-06 06:17] LABS: Basophils Absolute Auto 0.1 K/mm3 (0.0-0.1); Basophils Percent Auto 0.6 % (0.2-1.2); Eosinophils Percent Auto 0.3 % (0-4.4); Hematocrit 32.3 % (37.0-47.0); Hemoglobin 10.5 g/dL (12.0-15.0); Immature Granulocyte Absolute 0.71 K/mm3 (0.00-0.031); Immature Granulocyte Percent A 5.6 % (0-0.5); Lymphocytes Absolute Auto 1.14 K/mm3 (0.9-3.2); Lymphocytes Percent Auto 9.1 % (18.3-44.2); Mean Corpuscular HGB Conc 32.5 g/dl (32-36); Mean Corpuscular Hemoglobin 32.1 pg (26-34); Mean Corpuscular Volume 98.8 fl (80-100); Mean Platelet Volume 9.4 fl (7.4-10.4); Monocytes Absolute Auto 0.7 K/mm3 (0.1-0.6); Monocytes Percent Auto 5.6 % (2.6-8.5); Neutrophils Absolute Auto 9.9 K/mm3 (1.3-6.7); Neutrophils Percent Auto 78.8 % (45.5-73.1); Platelet Count Result 173 k/mm3 (150-375); Red Blood Count 3.27 M/mm3 (4.2-5.4); Red Cell Distribution Width 12.8 % (11.5-14.5); White Blood Count 12.6 K/mm3 (4.5-10.0)
[2021-12-06 06:44] LABS: Alanine Aminotransferase 30 U/L (6-35); Albumin Level 3.5 g/dL (3.5-5.1); Alkaline Phosphatase 148 U/L (38-126); Anion Gap 14 mmol/L (8-16); Aspartate Amino Transferase 40 U/L (14-36); Bilirubin,Total 0.5 mg/dL (0.2-1.3); Blood Urea Nitrogen 88 mg/dL (7-17); Carbon Dioxide 27 mmol/L (22-30); Chloride 87 mmol/L (98-107); Estimated Glomerular Filt Rate 6; Glucose 145 mg/dL (65-110); Magnesium 1.7 mg/dL (1.6-2.3); Phosphorus 3.8 mg/dL (2.5-4.5); Potassium 4.8 mmol/L (3.4-5.0); Sodium 128 mmol/L (137-145)
[2021-12-06 07:38] LABS: Glucose Point of Care 144 mg/dl (65-105)
[2021-12-06] MEDS: LOSARTAN POTASSIUM 50 MG TABLET PO (09:04)
[2021-12-06] MEDS: VITAMIN B CMPLX/VIT C/FOLIC AC 1 CAPSULE 1 CAP BY MOUTH (09:04)
[2021-12-06] MEDS: ATORVASTATIN 40 MG TABLET PO (09:04)
[2021-12-06] MEDS: DOCUSATE SODIUM 100 MG CAPSULE PO ×2 (09:04→14:52)
[2021-12-06] MEDS: CALCIUM ACETATE 667 MG TABLET BY MOUTH ×2 (09:04→14:52)
[2021-12-06] MEDS: SERTRALINE HCL 50 MG TABLET PO (09:04)
[2021-12-06] MEDS: guaiFENesin/DEXTROMETHORPHAN 10 ML UDC PO ×2 (09:05→20:04)
--- NOTE | 2021-12-06 09:15 | PM.PNNEP ---
Progress Note: A&P Additional Plan 1. Gisele has end-stage renal disease. This is most likely due to diabetes and hypertension. She gets dialysis 3 times a week at [facility]. she will get her treatment today. 2. The patient has shortness of breath and cough. This is better with fluid removal. Will remove more fluid tomorrow. She also has pneumonia. Blood cultures are negative so far. Is getting IV antibiotics for this. She is still coughing. Shortness of breath is better. She continues on oxygen. She does not have oxygen at home. 3. the patient is on medication for her hyperlipidemia. 4. Patient has diabetes. Management per hospitalists. 5. The patient has hypertension. Her blood pressures have been up and down generally between 120 and 164. Will take a little more fluid off today if tolerated. Adjust meds of blood pressure still high tomorrow. 6. The patient seems to have lost her appetite. She has no belly pain. She ate 2 pancakes today but did eat her sausage. I I encouraged her to eat everything on her tray Subjective Date/time seen: 12/06/21 09:15 Interval history: Patient wants to go home. She is coughing. She has some belly pain from the coughing she says. She is due for dialysis today. She will be done in a few minutes. Exam Narrative: WDWN in NAD skin no rash or subcu nodules head ncat lungs Mildly reduced breath sounds at the bases cor reg no rub abd BS+ nontender and soft ext no edema or cyanosis. Objective Data Vital Signs Vital Signs: Vital Signs - 24 hr 12/05/21 10:37 12/05/21 14:09 12/05/21 14:13 Temperature Pulse Rate 75 74 Respiratory Rate 18 18 Blood Pressure Pulse Oximetry 94 Oxygen Delivery Nasal Cannula Nasal Cannula Oxygen Flow Rate 2 2 12/05/21 14:19 12/05/21 16:00 12/05/21 14:00 Temperature 36.2 C L Pulse Rate 77 78 Respiratory Rate 18 18 Blood Pressure 154/45 H Pulse Oximetry 98 99 Oxygen Delivery Nasal Cannula Oxygen Flow Rate 1 12/05/21 20:30 12/05/21 20:31 12/05/21 20:39 Temperature Pulse Rate 74 76 Respiratory Rate 16 16 Blood Pressure Pulse Oximetry 96 Oxygen Delivery Nasal Cannula Oxygen Flow Rate 1 12/05/21 21:58 12/06/21 01:32 12/06/21 01:45 Temperature 36.2 C L Pulse Rate 69 77 75 Respiratory Rate 20 16 16 Blood Pressure 142/51 H Pulse Oximetry 96 Oxygen Delivery Oxygen Flow Rate 12/06/21 06:00 12/06/21 08:47 12/06/21 08:47 Temperature 35.9 C L Pulse Rate 86 80 Respiratory Rate 20 16 Blood Pressure 164/69 H Pulse Oximetry 93 97 Oxygen Delivery Nasal Cannula Oxygen Flow Rate 0.5 12/06/21 09:05 Temperature Pulse Rate 80 Respiratory Rate 16 Blood Pressure Pulse Oximetry Oxygen Delivery Oxygen Flow Rate Intake/Output Intake/Output: Intake & Output 12/03/21 12/04/21 12/05/21 12/06/21 23:59 23:59 23:59 23:59 Intake Total 300 1840 2270 300 Output Total 3200 100 800 Balance 300 -1360 2170 -500 Meds/Results Medications: Active Medications Generic Name Dose Route Start Last Admin Trade Name Freq PRN Reason Stop Dose Admin Acetaminophen 650 mg 12/03/21 19:48 Acetaminophen 325 Mg Tablet PO Q4H PRN Mild Pain (1-3) or Fever Albuterol 5 mg 12/03/21 20:00 12/06/21 08:47 Albuterol Sulfate Neb 2.5 Mg/3 Ml Inh INHALATION 5 mg Q6HRT ARLYN Administration Albuterol 2 puff 12/04/21 05:35 Albuterol Sulfate (*Sp) Aerosol 1 Puff INHALATION QIDRT PRN shortness of breath or wheezing Atorvastatin Calcium 40 mg 12/04/21 09:00 12/06/21 09:04 Atorvastatin 40 Mg Tablet PO 40 mg DAILY ARLYN Administration Benzonatate 200 mg 12/04/21 05:35 Benzonatate 100 Mg Capsule PO TID PRN cough Calcium Acetate 667 mg 12/04/21 12:45 12/06/21 09:04 Calcium Acetate 667 Mg Tablet BY MOUTH 667 mg TIDWM ARLYN Administration Calcium Acetate 667 mg 12/04/21 12:55
[2021-12-06] MEDS: EPOETIN ALFA-EPBX 10,000 UNITS/ML VIAL 10000 UNITS IV PUSH (11:23)
--- NOTE | 2021-12-06 11:45 | PM.IMPN ---
Progress Note: A&P Assessment and Plan (1) Pneumonia: Code(s): J18.9 - Pneumonia, unspecified organism Status: Acute Assessment and Plan: - Blood cultures are preliminarily negative. - Continue IV abx of Rocephin and Azithromycin. This is Day #3 of abx therapy. - Monitor labs and VS. - Continue Atrovent Nebulizer treatment. - She has been weaned to room air with regards to supplemental oxygenation and is maintaining her sats at this time. (2) End stage renal disease: Code(s): N18.6 - End stage renal disease Status: Chronic Assessment and Plan: - Nephrology to make dialysis arrangements. - Dialyzed today. -W- schedule. - Monitor labs and VS. (3) Type 2 diabetes mellitus with diabetic chronic kidney disease: Code(s): E11.22 - Type 2 diabetes mellitus with diabetic chronic kidney disease Status: Acute Assessment and Plan: - SSI Low dose - Hypoglycemic protocol - Renal diet - Accu checks AC and HS. (4) Hypertensive chronic kidney disease with stage 1 through stage 4 chronic kidney disease, or unspecified chronic kidney disease: Code(s): I12.9 - Hypertensive chronic kidney disease with stage 1 through stage 4 chronic kidney disease, or unspecified chronic kidney disease Status: Chronic Assessment and Plan: - Continue home medications and monitor BP. (5) Hepatic steatosis: Code(s): K76.0 - Fatty (change of) liver, not elsewhere classified Status: Chronic Time Spent With Patient Time with patient: 15 - 25 minutes Subjective Date/time seen: 12/06/21 0950 This pt. was examined at the bedside in dialysis this morning in routine follow up. She reports that she is feeling better and believes she is breathing easier overall. She has been weaned from her supplemental oxygen and she has maintained her saturations and is currently saturating at 95% on room air. She has no CP, but does endorse today that she feels tired. PT has evaluated patient and agree that she is at her baseline functioning status and no PT services are currently needed. I suspicion that patient will be ready for discharge tomorrow after recheck of her labs and VS to ensure that she can remain off of supplemental oxygen. Review of Systems Review of Systems: A 12 point ROS was performed and is otherwise negative. All systems reviewed & are unremarkable except as noted in HPI and below Exam Const: General: comfortable and no acute distress HENMT: Ears: TM's normal bilaterally and TMs normal General nose exam: Normal nares present and no epistaxis Mouth: Yes moist mucous membranes Eyes: General: appearance normal, both eyes and all related structures Sclera: sclerae normal and normal sclerae Pupils: Equal, round and reactive pupils present EOM: EOMs intact bilaterally Neck: Neck: supple and no JVD Thyroid: thyroid normal Carotids: no bruits Lymphatic: lymphadenopathy not noted Resp: Effort & Inspection: normal respiratory effort Auscultation: clear to auscultation bilaterally Cardio: Rate: regular rate Rhythm: regular rhythm Heart sounds: no gallops, no murmurs and no rubs GI: Inspection: non-distended Auscultation: normal bowel sounds Skin: General skin exam: normal color and no rashes or lesions noted Lesions: no lesions noted Rashes: no rashes noted Wounds: no wounds Neuro: General: gait normal Cranial nerves: Yes Equal, round and reactive pupils present Speech: normal speech Motor exam (neuro): 5/5 motor strength present throughout and Normal motor muscle tone present throughout Sensory Exam: normal sensation Extrem: General: normal to inspection, no edema and no pedal edema Other: Left upper arm - av graft present with a positive bruit and thrill. Psych: Mental Status: mental status grossly normal Affect: normal affect Objective Data Vital Signs Vital Signs: Vital Signs - 24 hr 12/05/21 14:09 12/05/21 14:13 12/05/21 14:19 Temp
--- NOTE | 2021-12-06 13:14 | PC.NURSE ---
Pt's daughter, Gail, called wanting an update. I answered her questions. Gail asked if another x-ray has been done because Dr. Freeman told me her lungs looked terrible. I verified that she spoke with Dr. Freeman the residential carpenter about pt's lungs/chest x-ray to which she adamantly informed me that she knew who Dr. Freeman is and yes he is the one who told her that. Gail also insists that pt have a repeat chest x-ray before she is discharged. I agreed to pass her concerns along to the hospitalist.
[2021-12-06 13:39] LABS: Glucose Point of Care 147 mg/dl (65-105)
--- NOTE | 2021-12-06 14:34 | PM.EVENT ---
Event Note Event Note Event Note: ON HD ericka it well. BP doing well so far seen at 10:30am
[2021-12-06 16:50] LABS: Glucose Point of Care 249 mg/dl (65-105)
[2021-12-06] MEDS: MIRTAZAPINE 7.5 MG TABLET PO (20:03)
--- NOTE | 2021-12-07 05:11 | PCRCNOTE ---
Patient refused 0200 breathing treatment. Therapist waited till 0500 to write off the treatment in case the pt called for it.
[2021-12-07] MEDS: LEVOTHYROXINE SODIUM 112 MCG TABLET PO (05:52)
[2021-12-07] MEDS: HEPARIN SODIUM 5,000 UNITS/ML VIAL 5000 UNITS SUB-Q (05:53)
[2021-12-07 06:00] VITALS: BP 165/61; PULSE 86; RESP 20; TEMP 36.1; O2SAT 95
[2021-12-07 06:48] LABS: Hematocrit 32.6 % (37.0-47.0); Hemoglobin 10.5 g/dL (12.0-15.0); Mean Corpuscular HGB Conc 32.2 g/dl (32-36); Mean Corpuscular Volume 99.4 fl (80-100); Mean Platelet Volume 9.3 fl (7.4-10.4); Platelet Count Result 167 k/mm3 (150-375); Red Blood Count 3.28 M/mm3 (4.2-5.4); White Blood Count 11.1 K/mm3 (4.5-10.0)
[2021-12-07 07:12] LABS: Alanine Aminotransferase 24 U/L (6-35); Albumin Level 3.4 g/dL (3.5-5.1); Alkaline Phosphatase 131 U/L (38-126); Anion Gap 9 mmol/L (8-16); Aspartate Amino Transferase 31 U/L (14-36); Bilirubin,Total 0.6 mg/dL (0.2-1.3); Blood Urea Nitrogen 47 mg/dL (7-17); Calcium 8.6 mg/dL (8.4-10.2); Carbon Dioxide 34 mmol/L (22-30); Chloride 92 mmol/L (98-107); Estimated Glomerular Filt Rate 11; Glucose 162 mg/dL (65-110); Magnesium 1.9 mg/dL (1.6-2.3); Potassium 4.1 mmol/L (3.4-5.0); Sodium 135 mmol/L (137-145)
[2021-12-07 08:00] VITALS: O2SAT 95
[2021-12-07 08:02] LABS: Glucose Point of Care 154 mg/dl (65-105)
[2021-12-07 08:02] LABS: Band Neutrophils Percent 12 % (0-6); Eosinophils Absolute Manual 0.11 K/mm3 (0.02-0.5); Eosinophils Percent Manual 1 % (0-4); Lymphocytes Absolute Manual 1.77 K/mm3 (1.1-4.5); Monocytes Absolute Manual 0.88 K/mm3 (0.1-0.90); Monocytes Percent Manual 8 % (3-9); Neutrophils Absolute Manual 8.32 K/mm3 (1.7-7.2); Neutrophils Percent Manual 63 % (46-73); Total Cells Counted 100
[2021-12-07 08:03] LABS: Platelet Estimate Adequate (Adequate)
[2021-12-07 08:08] LABS: Anisocytosis 1+ (NORMAL)
[2021-12-07 08:20] VITALS: PULSE 77; RESP 14; O2SAT 95
[2021-12-07] MEDS: IPRATROPIUM BR 0.02% INH SOLN 0.5 MG/2.5 ML VIAL INHALATION (08:22)
[2021-12-07] MEDS: ALBUTEROL SULFATE NEB 2.5 MG/3 ML INH 5 MG INHALATION (08:22)
[2021-12-07 08:27] VITALS: PULSE 80; RESP 14; O2SAT 95
[2021-12-07] MEDS: CALCIUM ACETATE 667 MG TABLET BY MOUTH (08:28)
[2021-12-07] MEDS: LOSARTAN POTASSIUM 50 MG TABLET PO (08:28)
[2021-12-07] MEDS: SERTRALINE HCL 50 MG TABLET PO (08:28)
[2021-12-07] MEDS: VITAMIN B CMPLX/VIT C/FOLIC AC 1 CAPSULE 1 CAP BY MOUTH (08:29)
[2021-12-07] MEDS: ATORVASTATIN 40 MG TABLET PO (08:29)
[2021-12-07] MEDS: DOCUSATE SODIUM 100 MG CAPSULE PO (08:31)
--- NOTE | 2021-12-07 08:50 | PCOTNOTE ---
Attempted to see patient at this time, however patient was eating breakfast.
--- NOTE | 2021-12-07 09:08 | PM.DS ---
DS: Admitting Diagnosis Discharge Date 12/07/2021 Admitting Diagnosis Pneumonia, end-stage renal disease, type 2 diabetes mellitus, hypertensive kidney disease that is chronic, hepatic steatosis DS: Discharge Diagnosis Discharge Diagnosis (1) Pneumonia: Code(s): J18.9 - Pneumonia, unspecified organism Status: Acute Assessment and Plan: - Blood cultures are negative - patient received 3 days of IV azithromycin and Rocephin. She is being discharged home today on Levaquin 250 mg daily for 7 days after confirming this dosage with printing manager, Dr. Freeman. - Patient has remained stable on room air. (2) End stage renal disease: Code(s): N18.6 - End stage renal disease Status: Chronic Assessment and Plan: - Patient was dialyzed yesterday and 1.7 L was removed. - She will resume her home schedule of Monday hemodialysis. (3) Type 2 diabetes mellitus with diabetic chronic kidney disease: Code(s): E11.22 - Type 2 diabetes mellitus with diabetic chronic kidney disease Status: Acute Assessment and Plan: - Patient will resume home diabetic management. (4) Hypertensive chronic kidney disease with stage 1 through stage 4 chronic kidney disease, or unspecified chronic kidney disease: Code(s): I12.9 - Hypertensive chronic kidney disease with stage 1 through stage 4 chronic kidney disease, or unspecified chronic kidney disease Status: Chronic Assessment and Plan: - Continue home medications and monitor BP. (5) Hepatic steatosis: Code(s): K76.0 - Fatty (change of) liver, not elsewhere classified Status: Chronic DS: Summary Hospital Course Reason for hospitalization: Pneumonia and acute respiratory failure Hospital Course: T his 76-year-old female patient with significant past medical history for end-stage renal disease on hemodialysis, diabetes mellitus, hypertension, chronic kidney disease and fatty liver presented to the emergency room on 12/03/2021 with complaints of dyspnea, generalized weakness, fatigue despite her dialysis treatment. In the emergency room she was worked up and chest x-ray was significant for extensive bilateral airspace disease which may represent a pneumonia or edema, pleural effusion on the right side and cardiomegaly. Patient was therefore admitted to the hospital for further workup and management per hospitalist service. She has been treated with IV antibiotics of azithromycin and Rocephin and has had a favorable outcome. She has been able to wean from her supplemental oxygen and repeat chest x-ray today although it does still show pneumonia there is no worsening. The pleural effusion that was present on admission is now resolved as patient has continued with her dialysis schedule and received dialysis yesterday with removal of 1.7 L. her blood cultures are negative for any bacteremia. Upon seeing the patient her in today she is tearful stating she wants to go home. After speaking with Dr. Freeman, printing manager, a dose of Levaquin was agreed upon for further treatment of pneumonia at home and patient will be advised to continue her home dialysis schedule on Fridays. She should follow up with primary care physician within the next 3 days, and resume her normal nephrology care. She is advised that if she has any new or worsening symptoms at any time she should return to the emergency room immediately. Status at Discharge Functional status at discharge: independent ambulation Overall status at discharge: patient is back to baseline Time Spent with Patient Time attestation: Total time spent providing and/or coordinating discharge services: Time spent: Greater than 30 minutes Specific discharge activities: Explanation of objective findings, plan of care, discharge orders and follow-up. Exam Const: General: comfortable and no acute distress Other: Has remained off of supplemental oxygen a
[2021-12-07 10:00] VITALS: O2SAT 93
== END 2021-12-07 11:00 | disposition home or self-care (01) | DRG 193 ==
LOC: ANHED 19:52 → ANH3MEDSUR 22:04
PROVIDERS: Internal Medicine Nephrology; Admitting Provider Internal Medicine; Emergency Provider Emergency Medicine; PCP Family Medicine Adolescent Medicine; Visit Provider Nurse Practitioner Adult Health
DX: J18.9 Pneumonia, unspecified organism (principal); N18.6 End stage renal disease; I12.0 Hypertensive chronic kidney disease with stage 5 chronic kidney disease or end stage renal disease; R09.02 Hypoxemia; Z20.822 Contact with and (suspected) exposure to COVID-19; E11.22 Type 2 diabetes mellitus with diabetic chronic kidney disease; K76.0 Fatty (change of) liver, not elsewhere classified; M19.90 Unspecified osteoarthritis, unspecified site; F32.A Depression, unspecified; E03.9 Hypothyroidism, unspecified; M17.0 Bilateral primary osteoarthritis of knee; E78.5 Hyperlipidemia, unspecified; Z99.2 Dependence on renal dialysis
CPT/HCPCS: 36415; 71045; 71046; 80053; 80069; 82948; 83735; 83880; 84100; 85025; 86706; 87040; 87340; 93005; 94640; 96365; 96367; 97161; 97165; 99285; A9270; C9803; G0257; G0378; J0456; J0696; J1644; J1815; J2550; J7030; Q5105; U0003; U0005

== ENCOUNTER 2022-09-02 09:54 | Outpatient (CLI) | payer OTHER, SELFPAY ==
[2022-09-02 10:26] LABS: Alanine Aminotransferase 17 U/L (6-35); Albumin Level 3.9 g/dL (3.5-5.1); Alkaline Phosphatase 83 U/L (38-126); Anion Gap 5 mmol/L (8-16); Aspartate Amino Transferase 33 U/L (14-36); Bilirubin,Total 0.5 mg/dL (0.2-1.3); Blood Urea Nitrogen 33 mg/dL (7-17); Calcium 8.7 mg/dL (8.4-10.2); Carbon Dioxide 35 mmol/L (22-30); Chloride 97 mmol/L (98-107); Cholesterol 184 mg/dL (0-200); Estimated Glomerular Filt Rate 11; Glucose 86 mg/dL (65-110); HDL Direct 33 mg/dL; Potassium 5.1 mmol/L (3.4-5.0); Sodium 137 mmol/L (137-145); Triglycerides 150 mg/dL (<150)
[2022-09-02 10:37] LABS: LDL Cholesterol Direct 94 mg/dL
[2022-09-02 10:47] LABS: Hemoglobin A1C 4.6 % (<5.7)
== END 2022-09-02 09:55 | disposition home or self-care (01) ==
LOC: ANHLAB 09:56
PROVIDERS: PCP Family Medicine Adolescent Medicine; Visit Provider Nurse Practitioner Family
DX: E11.22 Type 2 diabetes mellitus with diabetic chronic kidney disease (principal); N18.6 End stage renal disease; E78.2 Mixed hyperlipidemia; E03.9 Hypothyroidism, unspecified
CPT/HCPCS: 36415; 80053; 80061; 83036; 84443

== ENCOUNTER 2022-10-08 13:58 | Emergency (ER) | payer OTHER, SELFPAY ==
--- NOTE | ~2022-10-08 | XR_ITS ---
XR chest 2V DATE: 10/08/2022 14:32 INDICATION: Cough, congestion TECHNIQUE: PA and lateral views COMPARISON: 12/07/2021 portable AP chest 09/17/2010 CT pulmonary scan FINDINGS: Cardiomegaly. Is aortic calcification and mild unfolding. Bilateral hilar prominence. Hilar mass lesion and or adenopathy are not excluded. CT thorax with IV c ontrast material is recommended. There is pulmonary vascular congestion and redistribution suggesting pulmonary venous hypertension. Mild infiltrate or atelectasis at the right lung base. The lungs otherwise appear clear. Cannot exclude minimal right pleural effusion. No pneumothorax. Diffuse osteopenia. IMPRESSION: Cardiomegaly, pulmonary vascular congestion/redistribution, suggesting mild congestive he art failure Mild infiltrate or atelectasis at the right lung base Bilateral hilar prominence; consider CT thorax examination with IV contrast exclude hilar mass lesion or lymphadenopathy Aortic atherosclerosis Osteopenia Reviewed, dictated and finalized at location [facility]. IMPRESSION: Cardiomegaly, pulmonary vascular congestion/redistribution, suggest ing mild congestive heart failure Mild infiltrate or atelectasis at the right lung base Bilateral hilar prominence; consider CT thorax examination with IV contrast exc lude hilar mass lesion or lymphadenopathy Aortic atherosclerosis Osteopenia
[2022-10-08 14:10] VITALS: BP 177/55; PULSE 70; RESP 16; TEMP 36.4; O2SAT 98
--- NOTE | 2022-10-08 14:21 | ED.URI ---
HPI - URI/Sore Throat General Chief Complaint: Upper Respiratory Infection Stated Complaint: COUGH/CONGESTION Time Seen by Provider: 10/08/22 14:13 Source: patient, family (daughter) and RN notes reviewed Mode of arrival: ambulatory Limitations: no limitations History of Present Illness HPI Narrative: Patient presents today complaining of a 4 day history productive cough with dark colored sputum and runny nose. Denies shortness of breath, fever, or any additional symptoms. She has been taking [id number] cough medicine with some mild relief. History of chronic kidney disease and is currently on dialysis 3 times weekly. Related Data Home Medications Medication Instructions Recorded Confirmed ondansetron 4 mg disintegrating 4 mg translingual Q6H PRN Nausea 12/03/21 10/08/22 tablet calcium acetate(phosphat bind) 667 See Rx Instructions .Route .COMPLEX 12/04/21 10/08/22 mg capsule docusate sodium 100 mg capsule 100 mg PO BID 12/04/21 10/08/22 (Colace) vitamin B complex and vitamin C See Rx Instructions .Route .COMPLEX 12/04/21 10/08/22 no.20-folic acid 1 mg capsule (Triphrocaps) cholecalciferol (vitamin D3) 50 50 mcg PO DAILY 01/11/22 10/08/22 mcg (2,000 unit) capsule diphenhydramine HCl 25 mg capsule 25 mg PO QHS PRN Sleep 01/11/22 10/08/22 (Allergy (diphenhydramine)) melatonin 3 mg capsule 3 mg PO QHS 01/11/22 10/08/22 vitamin E (dl, acetate) 180 mg 180 mg PO DAILY 01/11/22 10/08/22 (400 unit) capsule calcium acetate(phosphat bind) 667 mg 10/08/22 10/08/22 mg capsule Allergies Allergy/AdvReac Type Severity Reaction Status Date / Time ibuprofen Allergy Mild Abdominal Verified 10/08/22 14:07 Pain Review of Systems Review of Systems: CONSTITUTIONAL: Denies body aches, fever, chills, or sweats. EYES: Denies visual changes, redness, or discharge. ENT: Denies congestion, sore throat, or otalgia.+ rhinorrhea CARDIOVASCULAR: Denies chest pain, palpitations, or edema. RESPIRATORY: Denies dyspnea.+ cough GASTROINTESTINAL: Denies abdominal pain, nausea, vomiting, or diarrhea. GENITOURINARY: Denies dysuria or hematuria. SKIN: Denies rash, itching, or wounds. MUSCULOSKELETAL: Denies back pain, joint pain, or myalgia. NEUROLOGIC: Denies headache, numbness, tingling, or weakness. PSYCH: Denies depression or anxiety. [facility] Past Medical History Medical History Arthritis Chronic kidney disease Depression Diabetes Gout Hypertension Hypothyroidism Nephrolithiasis Pneumonia Primary localized osteoarthritis of knees, bilateral Surgical History Surgical History H/O inguinal hernia repair Hx of tonsillectomy Social History Social History Smoking status: Never smoker Alcohol intake: never Substance use: never Gender identity (if verbalized by the patient): Female Spiritual care concerns: No Comments At time of signature, I have reviewed and agree with nursing past medical, surgical, social and family history unless otherwise noted. Please see nursing chart for further information. There is no relevant family history pertinent to the presenting complaint Exam Narrative: GENERAL: Well-appearing, well-nourished, and in no acute distress. HEAD: Normocephalic, atraumatic. EYES: EOMI. No redness or drainage. Conjunctivae normal. ENT: Mucous membranes pink and moist. Nares clear. No rhinorrhea. TMs normal bilaterally. Throat normal. Uvula midline. NECK: Normal AROM. Supple. No lymphadenopathy. CHEST: No respiratory distress. Diminished in the right lower lobe, otherwise clear. HEART: Regular rate and rhythm. No murmur appreciated. Normal peripheral pulses. ABDOMEN: Soft, nontender, nondistended, normal active bowel sounds. MUSCULOSKELETAL: No bony tenderness. EXTREMITIES: Normal range
== END 2022-10-08 15:08 | disposition home or self-care (01) ==
PROVIDERS: Emergency Provider Nurse Practitioner; PCP Family Medicine Adolescent Medicine
DX: J18.1 Lobar pneumonia, unspecified organism (principal); I12.9 Hypertensive chronic kidney disease with stage 1 through stage 4 chronic kidney disease, or unspecified chronic kidney disease; E11.22 Type 2 diabetes mellitus with diabetic chronic kidney disease; N18.9 Chronic kidney disease, unspecified; M10.9 Gout, unspecified; E03.9 Hypothyroidism, unspecified; M17.0 Bilateral primary osteoarthritis of knee; F32.A Depression, unspecified
CPT/HCPCS: 71046; 99213; G0463

== ENCOUNTER → 2022-11-15 13:40 | Outpatient (CLI) | payer OTHER, SELFPAY ==
--- NOTE | ~2022-11-15 | XR_ITS ---
Clinical Indication: Hilar prominence PA and lateral views of the chest: Comparison: 10/08/2022 Findings: Stable prominence of the hilar regions with possible minimal interstitial edema. No consoli dation or pleural effusion. Cardiac silhouette is stable. Bones and soft tissues are unremarkable. Impression: Stable prominent hilar regions, which could reflect pulmonary venous congestion. Contrast-enhanced CT would be more definitive to exclude other mass lesion/lymphadenopathy. Probable minimal interstitial edema. Reviewed, dictated and finalized at [facility]. Impression: Stable prominent hilar regions, which could reflect pulmonary venous congestion . Contrast-enhanced CT would be more definitive to exclude other mass lesion/ly mphadenopathy. Probable minimal interstitial edema.
== END ==
PROVIDERS: PCP Family Medicine Adolescent Medicine; Visit Provider Family Medicine Adolescent Medicine
DX: J18.9 Pneumonia, unspecified organism (principal)
CPT/HCPCS: 71046

== ENCOUNTER 2022-11-23 13:26 | Outpatient (CLI) | payer OTHER, SELFPAY ==
--- NOTE | ~2022-11-23 | CT_ITS ---
CT Scan of the Chest without Contrast: Clinical Indication: Hilar enlargement Technique: Contiguous sections were acquired throughout the chest without intravenous contrast. Dose reduction technique was used on this scan by utilizing automated exposure control and iterative recon struction technique. The dose-length product (DLP) was 168.79 mGy-cm. COMPARISON: 09/17/2010 Findings: There is no evidence of any significant mediastinal, hilar or axillary lymphadenopathy. There are ext ensive atherosclerotic calcifications of the aorta and coronary arteries. There is no evidence of pleural or pericardial effusion. There is mild chronic scarring and minimal bronchiectasis at the lingula and right middle lobe.. Images through the upper abdomen reveal stable left adrenal nodule. Impression: No hilar abnormality seen. Extensive atherosclerotic change, as above. Mild chronic scarring and minimal bronchiectasis at the lingula and right middle lobe. Findings could reflect chronic BENI infection. Reviewed, dictated and finalized at [facility]. Impression: No hilar abnormality seen. Extensive atherosclerotic change, as above. Mild chronic scarring and minimal bronchiectasis at the lingula and right middl e lobe. Findings could reflect chronic BENI infection.
== END 2022-11-23 13:27 | disposition home or self-care (01) ==
PROVIDERS: PCP Family Medicine Adolescent Medicine; Visit Provider Family Medicine Adolescent Medicine
DX: R59.0 Localized enlarged lymph nodes (principal)
CPT/HCPCS: 71250

== ENCOUNTER 2023-10-08 13:11 | Emergency (ER) | payer OTHER, SELFPAY ==
[2023-10-08] VITALS (8 sets, daily range): BP systolic 177; BP diastolic 94; PULSE 70–88; RESP 18–28; TEMP 36.4–36.8; O2SAT 93–99
--- NOTE | ~2023-10-08 | XR_ITS ---
XR chest 2V 10/08/2023 13:35 Indication: Cough. Hemoptysis. Procedure: AP and lateral views of the chest Comparison: 11/15/2022 Findings: Left upper lobe infiltrates, consistent with pneumonia. Cardiomegaly. Prominent bilateral h mimi, suspicious for lymphadenopathy. No pleural effusion or pneumothorax. Impression: 1: Left upper lobe pneumonia. 2: Enlarged tanvir, suspicious for lymphadenopathy. 3: Moderate cardiomegaly. Reviewed, dictated and finalized at location [facility]. Impression: 1: Left upper lobe pneumonia. 2: Enlarged tanvir, suspicious for lymphadenopathy. 3: Moderate cardiomegaly.
[2023-10-08 14:05] LABS: Basophils Percent Auto 0.4 % (0.2-1.2); Eosinophils Absolute Auto 0.1 K/mm3 (0-0.3); Eosinophils Percent Auto 0.9 % (0-4.4); Hemoglobin 9.6 g/dL (12.0-15.0); Immature Granulocyte Absolute 0.01 K/mm3 (0.00-0.031); Immature Granulocyte Percent A 0.2 % (0-0.5); Lymphocytes Absolute Auto 0.56 K/mm3 (0.9-3.2); Lymphocytes Percent Auto 10.1 % (18.3-44.2); Mean Corpuscular Hemoglobin 29.7 pg (26-34); Mean Platelet Volume 10.6 fl (7.4-10.4); Monocytes Absolute Auto 0.4 K/mm3 (0.1-0.6); Monocytes Percent Auto 6.5 % (2.6-8.5); Neutrophils Absolute Auto 4.6 K/mm3 (1.3-6.7); Neutrophils Percent Auto 81.9 % (45.5-73.1); Platelet Count Result 138 k/mm3 (150-375); Red Blood Count 3.23 M/mm3 (4.2-5.4); Red Cell Distribution Width 15.7 % (11.5-14.5); White Blood Count 5.6 K/mm3 (4.5-10.0)
[2023-10-08] MEDS: AZITHROMYCIN 250 MG TABLET 500 MG PO (14:17)
[2023-10-08] MEDS: AMOXICILLIN/CLAVULANATE K 875-125 MG TAB 1 TABLET PO (14:17)
[2023-10-08 14:18] LABS: Anion Gap 7 mmol/L (4-12); Blood Urea Nitrogen 36 mg/dL (7-17); Calcium 9.4 mg/dL (8.4-10.2); Carbon Dioxide 31 mmol/L (22-30); Chloride 99 mmol/L (98-107); Estimated Glomerular Filt Rate 10; Glucose 153 mg/dL (65-110); Potassium 4.6 mmol/L (3.4-5.0); Sodium 137 mmol/L (137-145)
--- NOTE | 2023-10-08 14:26 | ED.GENADULT ---
HPI - General Adult General Chief complaint: Unspecified Stated complaint: cough, spitting up blood Time Seen by Provider: 10/08/23 13:18 History of Present Illness HPI narrative: Patient states she has been having a productive cough for the last few days, and earlier this morning patient noticed a little bit of blood-tinged sputum when she coughed. Denies any pain anywhere and no chest pain Related Data Home Medications Medication Instructions Recorded Confirmed ondansetron 4 mg disintegrating 4 mg translingual Q6H PRN Nausea 12/03/21 10/26/22 tablet calcium acetate(phosphat bind) 667 See Rx Instructions .Route .COMPLEX 12/04/21 10/26/22 mg capsule docusate sodium 100 mg capsule 100 mg PO BID 12/04/21 10/26/22 (Colace) vitamin B complex and vitamin C See Rx Instructions .Route .COMPLEX 12/04/21 10/08/22 no.20-folic acid 1 mg capsule (Triphrocaps) cholecalciferol (vitamin D3) 50 50 mcg PO DAILY 01/11/22 10/26/22 mcg (2,000 unit) capsule diphenhydramine HCl 25 mg capsule 25 mg PO QHS PRN Sleep 01/11/22 10/26/22 (Allergy (diphenhydramine)) melatonin 3 mg capsule 3 mg PO QHS 01/11/22 10/26/22 vitamin E (dl, acetate) 180 mg 180 mg PO DAILY 01/11/22 10/08/22 (400 unit) capsule calcium acetate(phosphat bind) 667 mg 10/08/22 10/26/22 mg capsule Allergies Allergy/AdvReac Type Severity Reaction Status Date / Time ibuprofen Allergy Mild Abdominal Verified 10/08/23 13:20 Pain Review of Systems Review of Systems: All systems reviewed & are unremarkable except as noted in HPI and below PMFSH Past Medical History Medical History Arthritis Chronic kidney disease Depression Diabetes Gout Hypertension Hypothyroidism Nephrolithiasis Pneumonia Primary localized osteoarthritis of knees, bilateral Surgical History Surgical History H/O inguinal hernia repair Hx of tonsillectomy Social History Social History (Updated 10/25/22 @ 15:07 by Nikki Mart MA) Smoking status: Never smoker Alcohol intake: never Substance use: never Lack of Transportation: No Lack of Food: Often True Current Housing: I Have Housing Concerned About Future Housing: YES Difficulty Paying Gas/Electric Bills: YES Difficulty Paying for Meds: No Currently Unemployed: YES Education: Grade School Difficulty w/ Childcare or Family Care: No Gender identity (if verbalized by the patient): Female Spiritual care concerns: No Exam Narrative: EXAMINATION OF ORGAN SYSTEMS/BODY AREAS: Constitutional: Vital signs per nursing GENERAL:[No acute distress, non-toxic appearing.] HEAD: Normal with no signs of head trauma. EYES: EOMI, conjunctiva normal ENT: Hearing grossly intact LUNGS: Nonlabored breathing. HEART: [Regular rate and rhythm] ABD: [Soft], [nontender to palpation] EXT: Normal range of motion SKIN: [No rashes or lesions.] NEURO: [Alert and oriented x 3. No gross focal sensory or strength deficits.] PSYCH: Normal affect Course Vital Signs Vital signs: Vital Signs Temperature 97.5 F L 10/08/23 13:18 Pulse Rate 80 10/08/23 13:18 Respiratory Rate 28 H 10/08/23 13:18 Blood Pressure 177/94 H 10/08/23 13:18 Pulse Oximetry 93 10/08/23 13:18 Oxygen Delivery Room Air 10/08/23 13:18 Temperature 97.5 F L 10/08/23 13:18 Pulse Rate 80 10/08/23 13:18 Respiratory Rate 28 H 10/08/23 13:18 Blood Pressure 177/94 H 10/08/23 13:18 Pulse Oximetry 99 10/08/23 13:28 Oxygen Delivery Room Air 10/08/23 13:18 Medical Decision Making [facility] Narrative Medical decision making narrative: patient with history of ESRD on dialysis presents here with productive cough for the last few days with a little bit of blood-tinged sputum today, she is well-appearing on exam, lungs are essentially clear, I suspect likely pneumonia or bronchitis,
== END 2023-10-08 15:34 | disposition home or self-care (01) ==
PROVIDERS: Emergency Provider Emergency Medicine; PCP Family Medicine Adolescent Medicine
DX: J18.9 Pneumonia, unspecified organism (principal); R04.2 Hemoptysis; I12.9 Hypertensive chronic kidney disease with stage 1 through stage 4 chronic kidney disease, or unspecified chronic kidney disease; E11.22 Type 2 diabetes mellitus with diabetic chronic kidney disease; N18.9 Chronic kidney disease, unspecified; E03.9 Hypothyroidism, unspecified; M10.9 Gout, unspecified; M17.0 Bilateral primary osteoarthritis of knee; Z87.442 Personal history of urinary calculi; Z79.899 Other long term (current) drug therapy; Z79.84 Long term (current) use of oral hypoglycemic drugs
CPT/HCPCS: 36415; 71046; 80048; 85025; 99283; A9270

== ENCOUNTER 2023-10-12 05:38 | Inpatient (IN) | payer OTHER, SELFPAY ==
[2023-10-12] VITALS (26 sets, daily range): BP systolic 130–194; BP diastolic 54–94; PULSE 62–81; RESP 16–26; TEMP 36.7–37.5; O2SAT 90–100; BMI 34.4
--- NOTE | ~2023-10-12 | XR_ITS ---
Clinical Indication: Chest pain PA and lateral views of the chest: Comparison: 10/08/2023 Findings: Minimal haziness left upper lobe noted. Stable prominence of the hilar regions. Cardiomedia stinal silhouette is within normal limits. Bones and soft tissues are unremarkable. Impression: Minimal haziness left upper lobe, suspicious for pneumonia. Stable prominent hilar regions, which could reflect pulmonary hypertension or central congestive lee ge, versus possibly lymphadenopathy. Stable cardiomegaly. Reviewed, dictated and finalized at location M. Impression: Minimal haziness left upper lobe, suspicious for pneumonia. Stable prominent hilar regions, which could reflect pulmonary hypertension or c entral congestive change, versus possibly lymphadenopathy. Stable cardiomegaly.
--- NOTE | ~2023-10-12 | XR_ITS ---
XR chest 1V portable DATE: 10/14/2023 08:57 INDICATION: Shortness of breath. Pneumonia. TECHNIQUE: Portable upright AP chest on 10/14/2023 at 0854 hours COMPARISON: 10/12/2023 AP and lateral chest 11/23/2022 CT chest 11/15/2022 2 view chest FINDINGS: Cardiomegaly. Extensive thoracic aortic calcification. Prominence of both tanvir, especially on the left, stable since 10/12/2023 and 11/15/2022. Mild infiltrate or atelectasis is suggested in the left upper and mid lung, with air bronchograms in creased density at the left lower lobe suggesting left lower lobe atelectasis and/or consolidation. There is infiltrate and/or atelectasis in the right lower lung zone, particularly at the right lung b ase. Mild bilateral pleural effusions. Pulmonary vascular congestion is suggested. Diffuse osteopenia. Thoracic dextroscoliosis. IMPRESSION: Cardiomegaly, pulmonary vascular congestion, pleural effusion, suggesting congestive hear t failure Patchy infiltrate and/or atelectasis bilaterally, more prominent on the left Reviewed, dictated and finalized at location A. IMPRESSION: Cardiomegaly, pulmonary vascular congestion, pleural effusion, sugg esting congestive heart failure Patchy infiltrate and/or atelectasis bilaterally, more prominent on the left
--- NOTE | ~2023-10-12 | XR_ITS ---
EXAMINATION: XR abdomen/kub 1V DATE: 10/13/2023 12:10 INDICATION: Bilateral flank pain. Nausea. TECHNIQUE: A supine view of the abdomen on 2 radiographs was obtained. COMPARISON: CT abdomen and pelvis 10/08/2017 FINDINGS: There are no dilated loops of bowel. There is a small volume of stool in the colon. Surgica l clips overlie the abdomen and pelvis. There is no visible urolithiasis. IMPRESSION: 1. Normal bowel gas pattern. Reviewed, dictated and finalized at location A.
--- NOTE | 2023-10-12 05:46 | ECG_ITS ---
[facility] [address] Test Date: 2023-10-12 Pat Name: Gisele Centeno Department: Room: Gender: F Whitewasher: : 1945 Requested By: Estela Madden Order Number: [id number] Reading MD: Torrey Leggett M.D. Measurements Intervals [place] Rate: 70 P: 253 GA: 176 QRS: 47 QRSD: 154 T: 31 QT: 409 QTc: 444 Interpretive Statements ECTOPIC ATRIAL RHYTHM WITH OCCASIONAL VENTRICULAR PREMATURE COMPLEXES INTRAVENTRICULAR CONDUCTION DELAY [130+ ms QRS DURATION] No previous ECG available for comparison Electronically Signed On 10-12-2023 13:42:50 CDT by Torrey Leggett M.D.
[2023-10-12] MEDS: ASPIRIN 81 MG CHEWABLE TABLET 324 MG PO (05:51)
[2023-10-12 05:57] LABS: Basophils Percent Auto 0.3 % (0.2-1.2); Eosinophils Absolute Auto 0.1 K/mm3 (0-0.3); Eosinophils Percent Auto 0.7 % (0-4.4); Hematocrit 34.6 % (37.0-47.0); Hemoglobin 10.9 g/dL (12.0-15.0); Immature Granulocyte Absolute 0.05 K/mm3 (0.00-0.031); Immature Granulocyte Percent A 0.5 % (0-0.5); Lymphocytes Absolute Auto 0.53 K/mm3 (0.9-3.2); Lymphocytes Percent Auto 5.3 % (18.3-44.2); Mean Corpuscular HGB Conc 31.5 g/dl (32-36); Mean Corpuscular Hemoglobin 30.4 pg (26-34); Mean Corpuscular Volume 96.6 fl (80-100); Monocytes Absolute Auto 0.5 K/mm3 (0.1-0.6); Monocytes Percent Auto 5.3 % (2.6-8.5); Neutrophils Absolute Auto 8.8 K/mm3 (1.3-6.7); Neutrophils Percent Auto 87.9 % (45.5-73.1); Platelet Count Result 131 k/mm3 (150-375); Red Blood Count 3.58 M/mm3 (4.2-5.4); Red Cell Distribution Width 15.8 % (11.5-14.5)
[2023-10-12 06:13] LABS: INR 1.1; Prothrombin Time 14.9 Seconds (11.1-14.7)
[2023-10-12 06:14] LABS: Partial Thromboplastin Time 37.1 Seconds (22.3-36.8)
[2023-10-12 06:32] LABS: Troponin I 0.029 ng/mL (0.000-0.034)
[2023-10-12 06:35] LABS: Alanine Aminotransferase 18 U/L (6-35); Albumin Level 4.2 g/dL (3.5-5.1); Alkaline Phosphatase 141 U/L (38-126); Anion Gap 10 mmol/L (4-12); Aspartate Amino Transferase 33 U/L (14-36); Bilirubin,Total 1.4 mg/dL (0.2-1.3); Blood Urea Nitrogen 58 mg/dL (7-17); Calcium 9.3 mg/dL (8.4-10.2); Carbon Dioxide 24 mmol/L (22-30); Chloride 101 mmol/L (98-107); Estimated Glomerular Filt Rate 6; Glucose 175 mg/dL (65-110); Lipase 151 U/L (23-300); Potassium 5.4 mmol/L (3.4-5.0); Sodium 135 mmol/L (137-145)
--- NOTE | 2023-10-12 07:15 | ED.CHESTPAIN ---
HPI - Chest Pain General Chief Complaint: Chest Pain Stated Complaint: Difficulty breathing/cp Time Seen by Provider: 10/12/23 07:06 History of Present Illness HPI narrative: Pt presents with sharp left sided CP that awoke her from sleep about 0130. Pt was dagnosed with pneumonia here on Monday and sent home n Z pack. Pt says her cough is actually worse but has no fever. Pt is SOB as well but is a dialysis pt and missed her dialysis yesterday because she did not feel well. Her CP has been constant but has improved now. Pt has also had several episodes of diarrhea over last few days. Related Data Home Medications Medication Instructions Recorded Confirmed ondansetron 4 mg disintegrating 4 mg translingual Q6H PRN Nausea 12/03/21 10/12/23 tablet calcium acetate(phosphat bind) 667 See Rx Instructions .Route .COMPLEX 12/04/21 10/12/23 mg capsule docusate sodium 100 mg capsule 100 mg PO BID 12/04/21 10/12/23 (Colace) vitamin B complex and vitamin C See Rx Instructions .Route .COMPLEX 12/04/21 10/08/22 no.20-folic acid 1 mg capsule (Triphrocaps) cholecalciferol (vitamin D3) 50 50 mcg PO DAILY 01/11/22 10/26/22 mcg (2,000 unit) capsule diphenhydramine HCl 25 mg capsule 25 mg PO QHS PRN Sleep 01/11/22 10/12/23 (Allergy (diphenhydramine)) melatonin 3 mg capsule 3 mg PO QHS 01/11/22 10/26/22 vitamin E (dl, acetate) 180 mg 180 mg PO DAILY 01/11/22 10/08/22 (400 unit) capsule atorvastatin 40 mg tablet 40 mg PO DAILY 10/12/23 10/12/23 Allergies Allergy/AdvReac Type Severity Reaction Status Date / Time ibuprofen Allergy Mild Abdominal Verified 10/12/23 05:51 Pain PMFSH Past Medical History Medical History Arthritis Chronic kidney disease Depression Diabetes Gout Hypertension Hypothyroidism Nephrolithiasis Pneumonia Primary localized osteoarthritis of knees, bilateral Surgical History Surgical History H/O inguinal hernia repair Hx of tonsillectomy Social History Social History (Updated 10/25/22 @ 15:07 by Nikki Mart MA) Smoking status: Never smoker Alcohol intake: never Substance use: never Substance use type: does not use Do You Feel Safe in your Home?: Yes Lack of Transportation: No Lack of Food: Often True Current Housing: I Have Housing Concerned About Future Housing: YES Difficulty Paying Gas/Electric Bills: YES Difficulty Paying for Meds: No Currently Unemployed: No Education: Grade School Difficulty w/ Childcare or Family Care: No Gender identity (if verbalized by the patient): Female Spiritual care concerns: No Exam Const: General: healthy appearing and no acute distress Nutritional Appearance: well nourished Orientation/consciousness: patient oriented x3 Limitations: no limitations HENMT: Head: normal to inspection Mouth: Yes Normal oral and palatal mucosa present Neck: Neck: normal visual inspection Chest: Chest palpation & inspection: tenderness costochondral junction (on right) Resp: Effort & Inspection: normal respiratory effort Auscultation: crackles Cardio: Rate: regular rate Rhythm: regular rhythm GI: Auscultation: normal bowel sounds Skin: General skin exam: normal color Rashes: no rashes Wounds: no wounds Neuro: General: patient oriented x3, moves all extremities and no focal motor deficits Cranial nerves: Yes Nystagmus not present Speech: normal speech Extrem: General: normal to inspection and no clubbing, cyanosis or edema Psych: Mental Status: mental status grossly normal Affect: normal affect Attitude: cooperative Course Vital Signs Vital signs: Vital Signs Pulse Rate 72 10/12/23 05:38 Respiratory Rate 23 H 10/12/23 05:38 Blood Pressure 187/67 H 10/12/23 05:38 Pulse Oximetry 96 10/12/23 05:38 Oxygen Delivery Room Air 10/12/23 05:38 Pulse Rate 74 06
[2023-10-12] MEDS: levoFLOXacin 500 MG/D5W 100 ML 500 MG/100 ML BAG 100 MG IVPB (08:29)
--- NOTE | 2023-10-12 08:31 | ECG_ITS ---
[facility] [address] Test Date: 2023-10-12 Pat Name: Gisele Centeno Department: Room: 251 Gender: F Bread Room Hand: : 1945 Requested By: Mason Hylton Order Number: [id number] Heber MD: Torrey Leggett M.D. Measurements Intervals [place] Rate: 75 P: 250 IN: 175 QRS: 36 QRSD: 157 T: 28 QT: 399 QTc: 448 Interpretive Statements ECTOPIC ATRIAL RHYTHM RIGHT BUNDLE BRANCH BLOCK [120+ ms QRS DURATION, UPRIGHT V1, 40+ ms S IN I/aVL/V4/V5/V6] Compared to ECG 10/12/2023 05:44:01 NO SIGNIFICANT CHANGES Electronically Signed On 10-12-2023 13:45:54 CDT by Torrey Leggett M.D.
[2023-10-12 09:14] LABS: Troponin I 0.022 ng/mL (0.000-0.034)
--- NOTE | 2023-10-12 09:50 | ADMGEN ---
This patient, Gisele Centeno, was admitted to 2 Medical Room 251-01. Patient/family oriented to hospital policies and general routines including ID bracelet, bed and alarms, visiting hours, pain management, procedures, bathroom and other care routines, personal items, smoking policy, room service/diet, and visiting hours. Information on how to activate the Rapid Response Team has been discussed. Patient/Family are encouraged to report perceived risks to care and to ask questions if they do not understand what they are told or what they should do.
--- NOTE | 2023-10-12 11:49 | PM.IMHP ---
H&P: HPI History of Present Illness Date/Time: 10/12/23 11:49 Chief Complaint: chest pain Narrative: Patient is 77-year-old female with a past medical history of end-stage renal disease on hemodialysis, diabetes mellitus, hypertension, chronic kidney disease who presented to the ED with complaints of chest pain along with diarrhea. Patient stated that she was here unsteady she was not feeling good and they stated that she had pneumonia doing a chest x-ray. She stated that they gave her some medicine and sent her home. She stated that she was doing okay however she started having diarrhea on Monday. She stated that on Monday she was was going to dialysis however she skipped dialysis due to the diarrhea. She also stated that she was having a cough and was coming up clear. Today she did get up to go to the bathroom she was going to go dialysis however when she went to the bathroom she could hardly breathe and started have some pretty significant chest pain. She stated she call her daughter who called EMS. Currently she is still having some chest pain rates around 2-3. She denies any current nausea, vomiting, fevers, sweats, chills, constipation, shortness of breath. She does still have a cough. She stated that her sputum was blood-tinged in her opinion. The she also has become lightheaded and has been experiencing some weakness and fatigue. Patient does dialysis on Monday at [facility] in [place]. In ED potassium was noted to be 5.4. Hemoglobin and hematocrit 10.9/34.6. BUN creatinine 58/6.90. Glucose 175. Troponins negative x2. Chest x-ray shows minimal haziness left upper lobe suspicious for pneumonia, central congestive changes stable cardiomegaly. Nephrology consulted for dialysis. Patient is being admitted to the hospitalist setting as inpatient and will require greater than 2 MN for workup, treatment, and recovery. Review of Systems Review of Systems: All systems reviewed & are unremarkable except as noted in HPI and below PMFSH Past Medical History Medical History Arthritis Chronic kidney disease Depression Diabetes Gout Hypertension Hypothyroidism Nephrolithiasis Pneumonia Primary localized osteoarthritis of knees, bilateral Surgical History Surgical History H/O inguinal hernia repair Hx of tonsillectomy Family History Family History (Updated 10/12/23 @ 12:07 by GISELLA Avelar) Other Diabetes mellitus Heart disease Hypertension Social History Social History (Updated 10/12/23 @ 12:09 by GISELLA Avelar) Social History: Patient lives with her daughter, grandson daughter's kids and her daughter daughters kids. Patient's did of diabetes in 1985. Patient wishes to be a full code does like her daughter to be her surrogate. She also does have 3 dogs and 2 cats that live with her as well. 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
[2023-10-12 12:30] LABS: Troponin I 0.018 ng/mL (0.000-0.034)
[2023-10-12] MEDS: AZITHROMYCIN 500 MG/NS 250 ML 500 MG/250 ML BAG 250 MG IVPB (12:45)
[2023-10-12] MEDS: HEPARIN SODIUM 1,000 UNITS/ML VIAL 4000 UNITS (14:00)
[2023-10-12] MEDS: SODIUM CHLORIDE 0.9% IV 1,000 ML 999 ML IV CONT (14:00)
--- NOTE | 2023-10-12 16:35 | PM.CNNEP ---
Assessment and Plan Assessment and plan (1) End stage renal disease: Code(s): N18.6 - End stage renal disease Status: Chronic Assessment and Plan: HD today continue T/T/S dialysis schedule while hospitalized follow electrolytes, volume status, and clearance (2) Hyperkalemia: Code(s): E87.5 - Hyperkalemia Status: Acute Assessment and Plan: mildly elevated by admission labs partly related to missed dialysis treatment on Monday should correct with dialysis follow trend (3) Pneumonia: Qualifiers: Laterality: left Lung location: upper lobe of lung Pneumonia type: due to unspecified organism Qualified Code(s): J18.9 - Pneumonia, unspecified organism Code(s): J18.9 - Pneumonia, unspecified organism Status: Acute Assessment and Plan: as suggested by admission symptoms (SOB + cough + chest discomfort) CXR with upper lobe haziness concerning for pneumonia previous CXR done on 10/07 with this finding as well -- treated with oral antibiotics appears to have failed outpatient therapy on IV antibiotics follow cultures monitor respiratory status (4) Anemia: Code(s): D64.9 - Anemia, unspecified Status: Chronic Assessment and Plan: due to ESRD Epogen with HD follow trend of H/H (5) Hypertension: Code(s): I10 - Essential (primary) hypertension Status: Chronic Assessment and Plan: elevated at this time resume home BP medications follow trend of hemodynamics (6) Type 2 diabetes mellitus with diabetic polyneuropathy: Qualifiers: Diabetes mellitus remote computer terminal operator insulin use: without remote computer terminal operator use Qualified Code(s): E11.42 - Type 2 diabetes mellitus with diabetic polyneuropathy Code(s): E11.42 - Type 2 diabetes mellitus with diabetic polyneuropathy Status: Acute Assessment and Plan: follow accu-cheks glycemic control per hospitalists I will continue to follow the patient with you while she remains hospitalized to make further recommendations as deemed necessary. Thank you for allowing me to participate in the care of this patient. History of Present Illness Reason for Consult Consult date: 10/12/23 Reason for consult: end stage renal disease Chief Complaint Chief complaint: peumonia,crf History of Present Illness Narrative: The patient is a 77-year-old female with a past medical history as outlined below who presented to [facility] Emergency room with complaints of shortness of breath cough, and chest discomfort. The patient was recently seen in the ER several days ago when she had not been feeling well. At that time, she was diagnosed with pneumonia by chest x-ray and she was prescribed a course of oral antibiotics for treatment of this. She seems to think that she had been doing well up until Monday when she started having issues/problems with diarrhea and this caused her to not go to her scheduled dialysis treatment on that day. Following this, she started having increasing cough with clear productive sputum. Today, when she got up, she could hardly breathe and start have significant chest pain/discomfort. She was scheduled to go to dialysis today but because of the symptoms, EMS was called and she was subsequently transferred to the ER for further assessment. Workup and evaluation in the emergency room demonstrated labs consistent with her known history of end-stage renal disease with her potassium mildly elevated 5.4. Her CBC was unremarkable other than chronic anemia also consistent with her known history of end-stage renal disease. Her troponins were negative x2 and her chest x-ray showed a haziness in the left upper lobe suspicious for pneumonia as well as central congestive changes and stable cardiomegaly. In comparison to her chest x-ray done several days ago, these findings seem to be consistent. On further questioning, the patient denies
--- NOTE | 2023-10-12 16:35 | P.CONNP_ITS ---
Assessment and Plan Assessment and plan (1) End stage renal disease: Code(s): N18.6 - End stage renal disease Status: Chronic Assessment and Plan: * HD today * continue T/T/S dialysis schedule while hospitalized * follow electrolytes, volume status, and clearance (2) Hyperkalemia: Code(s): E87.5 - Hyperkalemia Status: Acute Assessment and Plan: * mildly elevated by admission labs * partly related to missed dialysis treatment on Monday * should correct with dialysis * follow trend (3) Pneumonia: Qualifiers: Laterality: left Lung location: upper lobe of lung Pneumonia type: due to unspecified organism Qualified Code(s): J18.9 - Pneumonia, unspecified organism Code(s): J18.9 - Pneumonia, unspecified organism Status: Acute Assessment and Plan: * as suggested by admission symptoms (SOB + cough + chest discomfort) * CXR with upper lobe haziness concerning for pneumonia * previous CXR done on 10/07 with this finding as well -- treated with oral antibiotics * appears to have failed outpatient therapy * on IV antibiotics * follow cultures * monitor respiratory status (4) Anemia: Code(s): D64.9 - Anemia, unspecified Status: Chronic Assessment and Plan: * due to ESRD * Epogen with HD * follow trend of H/H (5) Hypertension: Code(s): I10 - Essential (primary) hypertension Status: Chronic Assessment and Plan: * elevated at this time * resume home BP medications * follow trend of hemodynamics (6) Type 2 diabetes mellitus with diabetic polyneuropathy: Qualifiers: Diabetes mellitus shelter insulin use: without shelter use Qu alified Code(s): E11.42 - Type 2 diabetes mellitus with diabetic polyneuropathy Code(s): E11.42 - Type 2 diabetes mellitus with diabetic polyneuropathy Status: Acute Assessment and Plan: * follow accu-cheks * glycemic control per hospitalists I will continue to follow the patient with you while she remains hospitalized to make further recommendations as deemed necessary. Thank you for allowing me to participate in the care of this patient. History of Present Illness Reason for Consult Consult date: 10/12/23 Reason for consult: end stage renal disease Chief Complaint Chief complaint: peumonia,crf History of Present Illness Narrative: The patient is a 77-year-old female with a past medical history as outlined below who presented to [facility] Emergency room with complaints of shortness of breath cough, and chest discomfort. The patient was recently seen in the ER several days ago when she had not been feeling well. At that time, she was diagnosed with pneumonia by chest x-ray and she was prescribed a course of oral antibiotics for treatment of this. She seems to think that she had been doing well up until Monday when she started having issues/problems with diarrhea and this caused her to not go to her schedu led dialysis treatment on that day. Following this, she started having increasing cough with clear productive sputum. Today, when she got up, she could hardly breathe and start have significant chest pain/discomfort. She was scheduled to go to dialysis today but because of the symptoms, EMS was called and she was subsequently transferred to the ER for further assessment. Workup and evaluation in the emergency room demonstrated labs consistent with her known history of end-stage renal disease with her potassium mildly elevated 5.4. Her CBC was unremarkable
--- NOTE | 2023-10-12 17:21 | PC.NURSE ---
Patient to dialysis before 1200 scheduled ceftriaxone could be given. Per Regan with pharmacy, okay to administer IV antibiotic when patient arrives to floor and give next doses scheduled at 1200 10/12.
[2023-10-12] MEDS: EPOETIN ALFA-EPBX 4,000 UNITS/ML VIAL 4000 UNITS IV PUSH (17:26)
[2023-10-12] MEDS: DOCUSATE SODIUM 100 MG CAPSULE PO (18:22)
[2023-10-12] MEDS: CALCIUM ACETATE 667 MG TABLET BY MOUTH ×2 (18:22→21:31)
[2023-10-12 20:35] LABS: Glucose Point of Care 170 mg/dl (65-105)
[2023-10-12] MEDS: MIRTAZAPINE 15 MG TABLET PO (20:45)
[2023-10-12] MEDS: MELATONIN 3 MG TABLET PO (20:45)
[2023-10-12] MEDS: HEPARIN SODIUM 5,000 UNITS/ML VIAL 5000 UNITS SUB-Q (20:45)
[2023-10-12] MEDS: BENZONATATE 100 MG CAPSULE 200 MG PO (23:04)
[2023-10-13] VITALS (9 sets, daily range): BP systolic 158–171; BP diastolic 58–86; PULSE 70–80; RESP 17–20; TEMP 36.5–36.8; O2SAT 90–98
[2023-10-13] MEDS: LEVOTHYROXINE SODIUM 112 MCG TABLET PO (06:22)
[2023-10-13] MEDS: CALCIUM ACETATE 667 MG TABLET BY MOUTH ×5 (06:22→21:00)
[2023-10-13 06:46] LABS: Basophils Percent Auto 0.4 % (0.2-1.2); Eosinophils Absolute Auto 0.1 K/mm3 (0-0.3); Eosinophils Percent Auto 0.9 % (0-4.4); Hematocrit 32.4 % (37.0-47.0); Hemoglobin 9.9 g/dL (12.0-15.0); Immature Granulocyte Absolute 0.05 K/mm3 (0.00-0.031); Immature Granulocyte Percent A 0.7 % (0-0.5); Lymphocytes Absolute Auto 1.01 K/mm3 (0.9-3.2); Lymphocytes Percent Auto 14.5 % (18.3-44.2); Mean Corpuscular HGB Conc 30.6 g/dl (32-36); Mean Corpuscular Hemoglobin 29.8 pg (26-34); Mean Corpuscular Volume 97.6 fl (80-100); Mean Platelet Volume 10.1 fl (7.4-10.4); Monocytes Absolute Auto 0.6 K/mm3 (0.1-0.6); Monocytes Percent Auto 8.3 % (2.6-8.5); Neutrophils Absolute Auto 5.2 K/mm3 (1.3-6.7); Neutrophils Percent Auto 75.2 % (45.5-73.1); Platelet Count Result 119 k/mm3 (150-375); Red Blood Count 3.32 M/mm3 (4.2-5.4); Red Cell Distribution Width 15.9 % (11.5-14.5)
[2023-10-13 07:04] LABS: Alanine Aminotransferase 14 U/L (6-35); Albumin Level 3.6 g/dL (3.5-5.1); Alkaline Phosphatase 115 U/L (38-126); Anion Gap 5 mmol/L (4-12); Aspartate Amino Transferase 21 U/L (14-36); Bilirubin,Total 0.7 mg/dL (0.2-1.3); Blood Urea Nitrogen 25 mg/dL (7-17); Calcium 9.4 mg/dL (8.4-10.2); Carbon Dioxide 32 mmol/L (22-30); Chloride 101 mmol/L (98-107); Estimated Glomerular Filt Rate 11; Glucose 110 mg/dL (65-110); Magnesium 2.2 mg/dL (1.6-2.3); Phosphorus 3.4 mg/dL (2.5-4.5); Potassium 4.1 mmol/L (3.4-5.0); Sodium 138 mmol/L (137-145)
[2023-10-13 08:15] LABS: Glucose Point of Care 114 mg/dl (65-105)
[2023-10-13] MEDS: CHOLECALCIFEROL 1,000 UNITS TABLET 2000 UNITS PO (09:05)
[2023-10-13] MEDS: ATORVASTATIN 40 MG TABLET PO (09:05)
[2023-10-13] MEDS: DOCUSATE SODIUM 100 MG CAPSULE PO ×2 (09:06→17:21)
[2023-10-13] MEDS: HEPARIN SODIUM 5,000 UNITS/ML VIAL 5000 UNITS SUB-Q ×2 (09:06→21:02)
[2023-10-13] MEDS: LOSARTAN POTASSIUM 50 MG TABLET PO (09:06)
[2023-10-13] MEDS: DOXYCYCLINE 100 MG/NS 100 ML 100 MG/100 ML BAG IVPB ×2 (09:06→20:57)
[2023-10-13] MEDS: VITAMIN E 400 UNIT CAPSULE PO (09:07)
[2023-10-13] MEDS: SERTRALINE HCL 50 MG TABLET PO (09:07)
--- NOTE | 2023-10-13 10:15 | P.PNNP_ITS ---
Progress Note: A&P Assessment and Plan (1) End stage renal disease: Code(s): N18.6 - End stage renal disease Status: Chronic Assessment and Plan: * HD tomorrow * continue T/T/S dialysis schedule while hospitalized * follow electrolytes, volume status, and clearance (2) Hyperkalemia: Code(s): E87.5 - Hyperkalemia Status: Acute Assessment and Plan: * resolved * mildly elevated by admission labs * partly related to missed dialysis treatment on Monday * follow trend (3) Pneumonia: Qualifiers: Laterality: left Lung location: upper lobe of lung Pneumonia type: due to unspecified organism Qualified Code(s): J18.9 - Pneumonia, unspecified organism Code(s): J18.9 - Pneumonia, unspecified organism Status: Acute Assessment and Plan: * as suggested by admission symptoms (SOB + cough + chest discomfort) * CXR with upper lobe haziness concerning for pneumonia * previous CXR done on 10/07 with this finding as well -- treated with oral antibiotics * appears to have failed outpatient therapy * on IV antibiotics * follow cultures * monitor respiratory status (4) Anemia: Code(s): D64.9 - Anemia, unspecified Status: Chronic Assessment and Plan: * due to ESRD * Epogen with HD * follow trend of H/H (5) Hypertension: Code(s): I10 - Essential (primary) hypertension Status: Chronic Assessment and Plan: * reasonable control * resumed on home BP medications * follow trend of hemodynamics (6) Type 2 diabetes mellitus with diabetic polyneuropathy: Qualifiers: Diabetes mellitus termite control servicer insulin use: without termite control servicer use Qualified Code(s): E11.42 - Type 2 diabetes mellitus with diabetic polyneuropathy Code(s): E11.42 - Type 2 diabetes mellitus with diabetic polyneuropathy Status: Acute Assessment and Plan: * follow accu-cheks * glycemic control per hospitalists Will continue to follow. Subjective Date/time seen: 10/13/23 10:15 Interval history: Follow-up for end stage renal disease on hemodialysis. Tolerated dialysis treatment yesterday afternoon without any issues or problems; still with some mild shortness of breath and cough but seems better; major complaint was that of nausea and associated vomiting along with generalized weakness. Exam Narrative: General: elderly Caucasianfemale in NAD Heart: normal S1 and S2; no rub Lungs: coarse and decreased at bases Abdomen: soft, nontender, nondistended, positive bowel sounds Extremities: no cyanosis or clubbing; 1+ edema (chronic) Skin: warm and dry Objective Data Vital Signs Vital Signs: Vital Signs Temp Pulse Resp BP Pulse Ox O2 Del Method 10/13/23 10:00 75 10/13/23 09:00 Room Air 10/13/23 08:00 75 10/13/23 00:00 97.9 F 75 18 165/60 H 90 10/13/23 06:00 97.9 F 74 18 166/66 H 92 10/13/23 04:00 74 10/13/23 00:00 77 10/12/23 20:00 77 10/12/23 19:50 99.2 F 78 18 130/94 H 90 10/12/23 17:46 98.0 F 80 18 161/78 H 10/12/23 17:30 75 158/65 H 10/12/23 18:47 98.4 F 81 16 167/61 H 94 10/12/23 17:15 73 158/72 H 10/12/23 17:00 70 152/71 H 10/12/23 16:45 71 151/64 H
--- NOTE | 2023-10-13 10:15 | PM.PNNEP ---
Progress Note: A&P Assessment and Plan (1) End stage renal disease: Code(s): N18.6 - End stage renal disease Status: Chronic Assessment and Plan: HD tomorrow continue T/T/S dialysis schedule while hospitalized follow electrolytes, volume status, and clearance (2) Hyperkalemia: Code(s): E87.5 - Hyperkalemia Status: Acute Assessment and Plan: resolved mildly elevated by admission labs partly related to missed dialysis treatment on Monday follow trend (3) Pneumonia: Qualifiers: Laterality: left Lung location: upper lobe of lung Pneumonia type: due to unspecified organism Qualified Code(s): J18.9 - Pneumonia, unspecified organism Code(s): J18.9 - Pneumonia, unspecified organism Status: Acute Assessment and Plan: as suggested by admission symptoms (SOB + cough + chest discomfort) CXR with upper lobe haziness concerning for pneumonia previous CXR done on 10/07 with this finding as well -- treated with oral antibiotics appears to have failed outpatient therapy on IV antibiotics follow cultures monitor respiratory status (4) Anemia: Code(s): D64.9 - Anemia, unspecified Status: Chronic Assessment and Plan: due to ESRD Epogen with HD follow trend of H/H (5) Hypertension: Code(s): I10 - Essential (primary) hypertension Status: Chronic Assessment and Plan: reasonable control resumed on home BP medications follow trend of hemodynamics (6) Type 2 diabetes mellitus with diabetic polyneuropathy: Qualifiers: Diabetes mellitus intermodal dispatcher insulin use: without intermodal dispatcher use Qualified Code(s): E11.42 - Type 2 diabetes mellitus with diabetic polyneuropathy Code(s): E11.42 - Type 2 diabetes mellitus with diabetic polyneuropathy Status: Acute Assessment and Plan: follow accu-cheks glycemic control per hospitalists Will continue to follow. Subjective Date/time seen: 10/13/23 10:15 Interval history: Follow-up for end stage renal disease on hemodialysis. Tolerated dialysis treatment yesterday afternoon without any issues or problems; still with some mild shortness of breath and cough but seems better; major complaint was that of nausea and associated vomiting along with generalized weakness. Exam Narrative: General: elderly Caucasianfemale in NAD Heart: normal S1 and S2; no rub Lungs: coarse and decreased at bases Abdomen: soft, nontender, nondistended, positive bowel sounds Extremities: no cyanosis or clubbing; 1+ edema (chronic) Skin: warm and dry Objective Data Vital Signs Vital Signs: Vital Signs Temp Pulse Resp BP Pulse Ox O2 Del Method 10/13/23 10:00 75 10/13/23 09:00 Room Air 10/13/23 08:00 75 10/13/23 00:00 97.9 F 75 18 165/60 H 90 10/13/23 06:00 97.9 F 74 18 166/66 H 92 10/13/23 04:00 74 10/13/23 00:00 77 10/12/23 20:00 77 10/12/23 19:50 99.2 F 78 18 130/94 H 90 10/12/23 17:46 98.0 F 80 18 161/78 H 10/12/23 17:30 75 158/65 H 10/12/23 18:47 98.4 F 81 16 167/61 H 94 10/12/23 17:15 73 158/72 H 10/12/23 17:00 70 152/71 H 10/12/23 16:45 71 151/64 H 10/12/23 16:30 75 161/75 H 10/12/23 16:15 73 160/58 H Intake/Output Intake/Output: Intake & Output 10/10/23 10/11/23 10/12/23 10/13/23 23:59 23:59 23:59 23:59 Intake Total 282.5 390 Output Total 1500 Balance -1217.5 390 Meds/Results Medications: Active Medications Generic Name Dose Route Start Last Admin Trade Name Freq PRN Reason Stop Dose Admin Atorvastatin Calcium 40 mg 10/13/23 09:00 10/13/23 09:05 Atorvastatin 40 Mg Tablet PO 40 mg DAILY ARLYN Administration Benzonatate 200 mg 10/12/23 21:35 10/12/23 23:04 Benzonatate 100 Mg Capsule PO 200 mg TID PRN Administration Cough Calcium Acetate 667 mg 10/12/23 1
--- NOTE | 2023-10-13 11:06 | P.PNIM_ITS ---
Progress Note: A&P Assessment and Plan (1) Pneumonia: Qualifiers: Laterality: left Lung location: upper lobe of lung Pneumonia type: due to unspecified organism Qualified Code(s): J18.9 - Pneumonia, unspecified organism Code(s): J18.9 - Pneumonia, unspecified organism Status: Acute Assessment and Plan: * Patient presented with chest pain shortness a breath increased cough * Chest x-ray shows minimal haziness left upper lobe suspicious for pneumonia * Patient from 10/08/2023 showed left upper lobe pneumonia * Presented to the ED 10/08/2023 and was noted to pneumonia and was discharged with Augmentin * IV ceftriaxone and azithromycin changed to ceftriaxone and doxycycline * Sputum culture ordered * Trend respiratory status * Supplemental oxygen if indicated wean to maintain saturations greater than 90% (2) Hypothyroidism, unspecified: Qualifiers: Hypothyroidism type: acquired Qualified Code(s): E03.9 - Hypothyr oidism, unspecified Code(s): E03.9 - Hypothyroidism, unspecified Status: Acute Assessment and Plan: * TSH from 09/02/2022 shows 1.530 * Continue levothyroxine from home 112 mcg daily (3) Mixed hyperlipidemia: Code(s): E78.2 - Mixed hyperlipidemia Status: Acute Assessment and Plan: * Continue atorvastatin from home (4) End stage renal disease: Code(s): N18.6 - End stage renal disease Status: Chronic Assessment and Plan: * BUN and creatinine 58/6.90, potassium 5.4 at time of admission * Creatinine baseline is around 4.0 * Currently BUN creatinine 25/3.90 potassium today is 4.1 * Nephrology consulted for dialysis management * Dialysis Monday at [facility] ([facility] * Trend labs * Daily weights * Avoid nephrotoxic medications * Renal adjust medications as indicated * Ordered lidocaine cream for dialysis days (5) Type 2 diabetes mellitus with diabetic polyneuropathy: Qualifiers: Diabetes mellitus fpc insulin use: without roasterman use Qualified Code(s): E11.42 - Type 2 diabetes mellitus with diabetic polyneuropathy Code(s): E11.42 - Type 2 diabetes mellitus with diabetic polyneuropathy Status: Acute Assessment and Plan: * Glucose of arrival 175 * Current glucose 110 * Accu-Cheks AC and HS * Trend labs * A1c from 09/02/2022 4.6 * Adjust therapy as indicated (6) Irritable bowel syndrome with diarrhea: Code(s): K58.0 - Irritable bowel syndrome with diarrhea Status: Acute Assessment and Plan: * Complaints of diarrhea since Monday. * Consider banatrol * Trend labs. * Consider Imodium Plan Flank pain noted bilaterally, KUB ordered Time Spent With Patient Time: 43 minutes Peripheral in inserted by myself Time with patient: Greater than 35 minutes Subjective Date/time seen: 10/13/23 1045 Interval history: 10/12/23 11:49 Patient is 77-year-old female with a past medical history of end-stage renal disease on hemodialysis, diabetes mellitus, hypertension, chronic kidney disease who presented to the ED with complaints of chest pain along with diarrhea. Patient stated that she was here unsteady she was not feeling good and they stated that she had pneumonia doing a chest x-ray. She stated that they gave her some medicine and sent her home. She stated that she was doing okay however s
--- NOTE | 2023-10-13 11:06 | PM.IMPN ---
Progress Note: A&P Assessment and Plan (1) Pneumonia: Qualifiers: Laterality: left Lung location: upper lobe of lung Pneumonia type: due to unspecified organism Qualified Code(s): J18.9 - Pneumonia, unspecified organism Code(s): J18.9 - Pneumonia, unspecified organism Status: Acute Assessment and Plan: Patient presented with chest pain shortness a breath increased cough Chest x-ray shows minimal haziness left upper lobe suspicious for pneumonia Patient from 10/08/2023 showed left upper lobe pneumonia Presented to the ED 10/08/2023 and was noted to pneumonia and was discharged with Augmentin IV ceftriaxone and azithromycin changed to ceftriaxone and doxycycline Sputum culture ordered Trend respiratory status Supplemental oxygen if indicated wean to maintain saturations greater than 90% (2) Hypothyroidism, unspecified: Qualifiers: Hypothyroidism type: acquired Qualified Code(s): E03.9 - Hypothyroidism, unspecified Code(s): E03.9 - Hypothyroidism, unspecified Status: Acute Assessment and Plan: TSH from 09/02/2022 shows 1.530 Continue levothyroxine from home 112 mcg daily (3) Mixed hyperlipidemia: Code(s): E78.2 - Mixed hyperlipidemia Status: Acute Assessment and Plan: Continue atorvastatin from home (4) End stage renal disease: Code(s): N18.6 - End stage renal disease Status: Chronic Assessment and Plan: BUN and creatinine 58/6.90, potassium 5.4 at time of admission Creatinine baseline is around 4.0 Currently BUN creatinine 25/3.90 potassium today is 4.1 Nephrology consulted for dialysis management Dialysis Monday at [facility] Trend labs Daily weights Avoid nephrotoxic medications Renal adjust medications as indicated Ordered lidocaine cream for dialysis days (5) Type 2 diabetes mellitus with diabetic polyneuropathy: Qualifiers: Diabetes mellitus bed bug exterminator insulin use: without bed bug exterminator use Qualified Code(s): E11.42 - Type 2 diabetes mellitus with diabetic polyneuropathy Code(s): E11.42 - Type 2 diabetes mellitus with diabetic polyneuropathy Status: Acute Assessment and Plan: Glucose of arrival 175 Current glucose 110 Accu-Cheks AC and HS Trend labs A1c from 09/02/2022 4.6 Adjust therapy as indicated (6) Irritable bowel syndrome with diarrhea: Code(s): K58.0 - Irritable bowel syndrome with diarrhea Status: Acute Assessment and Plan: Complaints of diarrhea since Monday. Consider banatrol Trend labs. Consider Imodium Plan Flank pain noted bilaterally, KUB ordered Time Spent With Patient Time: 43 minutes Peripheral in inserted by myself Time with patient: Greater than 35 minutes Subjective Date/time seen: 10/13/23 1045 Interval history: 10/12/23 11:49 Patient is 77-year-old female with a past medical history of end-stage renal disease on hemodialysis, diabetes mellitus, hypertension, chronic kidney disease who presented to the ED with complaints of chest pain along with diarrhea. Patient stated that she was here unsteady she was not feeling good and they stated that she had pneumonia doing a chest x-ray. She stated that they gave her some medicine and sent her home. She stated that she was doing okay however she started having diarrhea on Monday. She stated that on Monday she was was going to dialysis however she skipped dialysis due to the diarrhea. She also stated that she was having a cough and was coming up clear. Today she did get up to go to the bathroom she was going to go dialysis however when she went to the bathroom she could hardly breathe and started have some pretty significant chest pain. She stated she call her daughter who called EMS. Currently she is still having some chest pain rates around 2-3. She denies any curre
[2023-10-13 12:04] LABS: Glucose Point of Care 102 mg/dl (65-105)
[2023-10-13 12:50] LABS: Hepatitis B Surface Antigen Negative (Negative)
[2023-10-13 13:20] LABS: Hepatitis B Surface Anti Res Positive
[2023-10-13] MEDS: ONDANSETRON INJ 4 MG/2 ML VIAL IV PUSH (14:57)
[2023-10-13 17:13] LABS: Glucose Point of Care 135 mg/dl (65-105)
[2023-10-13] MEDS: BENZONATATE 100 MG CAPSULE 200 MG PO (19:35)
[2023-10-13] MEDS: MIRTAZAPINE 15 MG TABLET PO (21:00)
[2023-10-13] MEDS: MELATONIN 3 MG TABLET PO (21:00)
[2023-10-13 21:38] LABS: Glucose Point of Care 176 mg/dl (65-105)
[2023-10-14] VITALS (23 sets, daily range): BP systolic 97–167; BP diastolic 46–64; PULSE 68–77; RESP 18–22; TEMP 36.2–37.6; O2SAT 87–96
[2023-10-14 05:27] LABS: Basophils Percent Auto 0.4 % (0.2-1.2); Eosinophils Absolute Auto 0.1 K/mm3 (0-0.3); Eosinophils Percent Auto 1.5 % (0-4.4); Hematocrit 33.3 % (37.0-47.0); Immature Granulocyte Percent A 1.4 % (0-0.5); Lymphocytes Absolute Auto 1.44 K/mm3 (0.9-3.2); Lymphocytes Percent Auto 20.1 % (18.3-44.2); Mean Corpuscular Hemoglobin 29.8 pg (26-34); Mean Corpuscular Volume 99.1 fl (80-100); Monocytes Absolute Auto 0.5 K/mm3 (0.1-0.6); Neutrophils Percent Auto 69.6 % (45.5-73.1); Platelet Count Result 152 k/mm3 (150-375); Red Blood Count 3.36 M/mm3 (4.2-5.4); Red Cell Distribution Width 15.9 % (11.5-14.5); White Blood Count 7.2 K/mm3 (4.5-10.0)
[2023-10-14 05:50] LABS: Alanine Aminotransferase 14 U/L (6-35); Albumin Level 3.5 g/dL (3.5-5.1); Alkaline Phosphatase 125 U/L (38-126); Anion Gap 7 mmol/L (4-12); Aspartate Amino Transferase 26 U/L (14-36); Bilirubin,Total 0.7 mg/dL (0.2-1.3); Blood Urea Nitrogen 39 mg/dL (7-17); Calcium 9.7 mg/dL (8.4-10.2); Carbon Dioxide 30 mmol/L (22-30); Chloride 101 mmol/L (98-107); Estimated Glomerular Filt Rate 7; Glucose 115 mg/dL (65-110); Magnesium 2.2 mg/dL (1.6-2.3); Potassium 4.1 mmol/L (3.4-5.0); Sodium 138 mmol/L (137-145)
[2023-10-14] MEDS: CALCIUM ACETATE 667 MG TABLET BY MOUTH ×4 (06:39→21:13)
[2023-10-14] MEDS: LEVOTHYROXINE SODIUM 112 MCG TABLET PO (06:39)
[2023-10-14 07:22] LABS: Glucose Point of Care 104 mg/dl (65-105)
--- NOTE | 2023-10-14 09:22 | PC.NURSE ---
Multiple attempts made to contact dialysis regarding time of treatment.
[2023-10-14] MEDS: CHOLECALCIFEROL 1,000 UNITS TABLET 2000 UNITS PO (10:36)
[2023-10-14] MEDS: ATORVASTATIN 40 MG TABLET PO (10:37)
[2023-10-14] MEDS: VITAMIN E 400 UNIT CAPSULE PO (10:37)
[2023-10-14] MEDS: SERTRALINE HCL 50 MG TABLET PO (10:37)
[2023-10-14] MEDS: HEPARIN SODIUM 5,000 UNITS/ML VIAL 5000 UNITS SUB-Q ×2 (10:37→21:13)
[2023-10-14] MEDS: LOSARTAN POTASSIUM 50 MG TABLET PO (10:37)
[2023-10-14] MEDS: DOXYCYCLINE 100 MG/NS 100 ML 100 MG/100 ML BAG IVPB (10:38)
[2023-10-14 11:40] LABS: Glucose Point of Care 156 mg/dl (65-105)
[2023-10-14] MEDS: HEPARIN SODIUM 1,000 UNITS/ML VIAL 1250 UNITS IV PUSH (14:10)
[2023-10-14] MEDS: HEPARIN SODIUM 1,000 UNITS/ML VIAL 1000 UNITS IV PUSH ×2 (14:13→15:35)
--- NOTE | 2023-10-14 14:37 | P.PNNP_ITS ---
Progress Note: A&P Assessment and Plan (1) End stage renal disease: Code(s): N18.6 - End stage renal disease Status: Chronic Assessment and Plan: * HD today * continue T/T/S dialysis schedule while hospitalized * follow electrolytes, volume status, and clearance (2) Hyperkalemia: Code(s): E87.5 - Hyperkalemia Status: Acute Assessment and Plan: * resolved * mildly elevated by admission labs * partly related to missed dialysis treatment on Monday * follow trend (3) Pneumonia: Qualifiers: Laterality: left Lung location: upper lobe of lung Pneumonia type: due to unspecified organism Qualified Code(s): J18.9 - Pneumonia, unspecified organism Code(s): J18.9 - Pneumonia, unspecified organism Status: Acute Assessment and Plan: * as suggested by admission symptoms (SOB + cough + chest discomfort) * CXR with upper lobe haziness concerning for pneumonia * previous CXR done on 10/07 with this finding as well -- treated with oral antibiotics * appears to have failed outpatient therapy * on IV antibiotics * follow cultures * monitor respiratory status (4) Anemia: Code(s): D64.9 - Anemia, unspecified Status: Chronic Assessment and Plan: * due to ESRD * Epogen with HD * follow trend of H/H (5) Hypertension: Code(s): I10 - Essential (primary) hypertension Status: Chronic Assessment and Plan: * reasonable control * resumed on home BP medications * follow trend of hemodynamics (6) Type 2 diabetes mellitus with diabetic polyneuropathy: Qualifiers: Diabetes mellitus mcfp insulin use: without equipment operator intermodal yard use Qualified Code(s): E11.42 - Type 2 diabetes mellitus with diabetic polyneuropathy Code(s): E11.42 - Type 2 diabetes mellitus with diabetic polyneuropathy Status: Acute Assessment and Plan: * follow accu-cheks * glycemic control per hospitalists Will continue to follow. Subjective Date/time seen: 10/14/23 14:37 Interval history: Follow-up for end stage renal disease on hemodialysis. Tolerating dialysis treatment at the time of my visit (seen on HD at 2:25PM); breathing/respiratory status has improved but still has a dry cough; no issues/events overnight or earlier this morning. Exam Narrative: General: elderly female in NAD Heart: normal S1 and S2; no rub Lungs: clear anteriorly but decreased at bases Abdomen: soft, nontender, nondistended, positive bowel sounds Extremities: no cyanosis or clubbing; 1+ edema (chronic) Skin: warm and intact Objective Data Vital Signs Vital Signs: Vital Signs Temp Pulse Resp BP Pulse Ox O2 Del Method FiO2 10/14/23 14:30 73 131/55 L 10/14/23 14:13 73 132/59 L 10/14/23 14:13 97.8 F 73 20 143/64 H 10/14/23 14:00 97.8 F 77 20 167/56 H 96 10/14/23 10:43 Room Air 10/14/23 07:49 95 Room Air 21 10/14/23 04:00 71 10/14/23 04:19 97.1 F L 74 20 141/64 H 88 L 10/14/23 00:00 75 10/13/23 20:00 75 10/13/23 19:45 98.2 F 80 20 171/58 H 98 10/13/23 16:00 78 Intake/Output Intake/Output: Intake & Output 10/11/23 10/12/23 0
--- NOTE | 2023-10-14 14:37 | PM.PNNEP ---
Progress Note: A&P Assessment and Plan (1) End stage renal disease: Code(s): N18.6 - End stage renal disease Status: Chronic Assessment and Plan: HD today continue T/T/S dialysis schedule while hospitalized follow electrolytes, volume status, and clearance (2) Hyperkalemia: Code(s): E87.5 - Hyperkalemia Status: Acute Assessment and Plan: resolved mildly elevated by admission labs partly related to missed dialysis treatment on Monday follow trend (3) Pneumonia: Qualifiers: Laterality: left Lung location: upper lobe of lung Pneumonia type: due to unspecified organism Qualified Code(s): J18.9 - Pneumonia, unspecified organism Code(s): J18.9 - Pneumonia, unspecified organism Status: Acute Assessment and Plan: as suggested by admission symptoms (SOB + cough + chest discomfort) CXR with upper lobe haziness concerning for pneumonia previous CXR done on 10/07 with this finding as well -- treated with oral antibiotics appears to have failed outpatient therapy on IV antibiotics follow cultures monitor respiratory status (4) Anemia: Code(s): D64.9 - Anemia, unspecified Status: Chronic Assessment and Plan: due to ESRD Epogen with HD follow trend of H/H (5) Hypertension: Code(s): I10 - Essential (primary) hypertension Status: Chronic Assessment and Plan: reasonable control resumed on home BP medications follow trend of hemodynamics (6) Type 2 diabetes mellitus with diabetic polyneuropathy: Qualifiers: Diabetes mellitus computer terminal operator insulin use: without halfway use Qualified Code(s): E11.42 - Type 2 diabetes mellitus with diabetic polyneuropathy Code(s): E11.42 - Type 2 diabetes mellitus with diabetic polyneuropathy Status: Acute Assessment and Plan: follow accu-cheks glycemic control per hospitalists Will continue to follow. Subjective Date/time seen: 10/14/23 14:37 Interval history: Follow-up for end stage renal disease on hemodialysis. Tolerating dialysis treatment at the time of my visit (seen on HD at 2:25PM); breathing/respiratory status has improved but still has a dry cough; no issues/events overnight or earlier this morning. Exam Narrative: General: elderly female in NAD Heart: normal S1 and S2; no rub Lungs: clear anteriorly but decreased at bases Abdomen: soft, nontender, nondistended, positive bowel sounds Extremities: no cyanosis or clubbing; 1+ edema (chronic) Skin: warm and intact Objective Data Vital Signs Vital Signs: Vital Signs Temp Pulse Resp BP Pulse Ox O2 Del Method FiO2 10/14/23 14:30 73 131/55 L 10/14/23 14:13 73 132/59 L 10/14/23 14:13 97.8 F 73 20 143/64 H 10/14/23 14:00 97.8 F 77 20 167/56 H 96 10/14/23 10:43 Room Air 10/14/23 07:49 95 Room Air 21 10/14/23 04:00 71 10/14/23 04:19 97.1 F L 74 20 141/64 H 88 L 10/14/23 00:00 75 10/13/23 20:00 75 10/13/23 19:45 98.2 F 80 20 171/58 H 98 10/13/23 16:00 78 Intake/Output Intake/Output: Intake & Output 10/11/23 10/12/23 10/13/23 10/14/23 23:59 23:59 23:59 23:59 Intake Total 282.5 862 980 Output Total 1500 550 Balance -1217.5 312 980 Meds/Results Medications: Active Medications Generic Name Dose Route Start Last Admin Trade Name Freq PRN Reason Stop Dose Admin Atorvastatin Calcium 40 mg 10/13/23 09:00 10/14/23 10:37 Atorvastatin 40 Mg Tablet PO 40 mg DAILY ARLYN Administration Benzonatate 200 mg 10/12/23 21:35 10/13/23 19:35 Benzonatate 100 Mg Capsule PO 200 mg TID PRN Administration Cough Calcium Acetate 667 mg 10/12/23 14:00 10/14/23 14:27 Calcium Acetate 667 Mg Tablet BY MOUTH Not Given 5 X DAILY ARLYN Dextrose 12.5 gm 10/12/23 12:20 Dextrose 50% 25 Gm/50 Ml Syringe IV PUSH
--- NOTE | 2023-10-14 14:53 | PM.IMPN ---
Progress Note: A&P Assessment and Plan (1) Pneumonia: Qualifiers: Laterality: left Lung location: upper lobe of lung Pneumonia type: due to unspecified organism Qualified Code(s): J18.9 - Pneumonia, unspecified organism Code(s): J18.9 - Pneumonia, unspecified organism Status: Acute Assessment and Plan: She presented to the ED 10/08/23 with hemoptysis and cough. CXR showing KEZIA PNA and enlarged tanvir suspicious for adenopathy. She was discharged with Augmentin and Azithro. Patient presented back to the ED on 10/11 with pleuritic chest pain and SOB with increased cough. CXR showed minimal haziness left upper lobe suspicious for PNA with stable prominent hilar region Prior xrays from November 2022 also showing prominent tanvir but CT chest at that time showed no hilar abnormalities. She was started on IV ceftriaxone and azithromycin but changed to ceftriaxone and doxycycline No BCx collected. Sputum culture ordered She remains on room air. No further chest pain (2) Hypothyroidism, unspecified: Qualifiers: Hypothyroidism type: acquired Qualified Code(s): E03.9 - Hypothyroidism, unspecified Code(s): E03.9 - Hypothyroidism, unspecified Status: Acute Assessment and Plan: TSH from 09/02/2022 was normal. Continue levothyroxine (3) Mixed hyperlipidemia: Code(s): E78.2 - Mixed hyperlipidemia Status: Acute Assessment and Plan: LFTs okay. Continue atorvastatin (4) End stage renal disease: Code(s): N18.6 - End stage renal disease Status: Chronic Assessment and Plan: Patient has HD T//Mon. ED note stated patient missed a HD treatment prior to admission. Potassium 5.4 at time of admission Nephrology consulted for dialysis management (5) Type 2 diabetes mellitus with diabetic polyneuropathy: Qualifiers: Diabetes mellitus shelter insulin use: without intermediate accountant use Qualified Code(s): E11.42 - Type 2 diabetes mellitus with diabetic polyneuropathy Code(s): E11.42 - Type 2 diabetes mellitus with diabetic polyneuropathy Status: Acute Assessment and Plan: A1c 4.6 from 09/02/22. The patient's blood glucose was reviewed on 10/13 Glucose remains well controlled. Continue AccuCheks covering with sliding scale. Hypoglycemia protocol available as needed. Continue to follow (6) Irritable bowel syndrome with diarrhea: Code(s): K58.0 - Irritable bowel syndrome with diarrhea Status: Acute Assessment and Plan: Patient complains of diarrhea since Monday. BM x5 yesterday but only one record for today KUB showing normal bowel gas pattern. Possibly related to the abx. Hold colace Follow Plan DVT prophylaxis - Heparin Code status - Full Possibly home tomorrow Subjective Date/time seen: 10/14/23 14:53 Interval history: 77yo female with ESRD, DM and HTN who presented to the ED with complaints of chest pain along with diarrhea. Assuming care. Chart reviewed. No problems overnight. Feels well. No SOB or SP. Persistent dry cough. Undergoing HD currently. HD T/Th/Sat Exam Narrative: AF 97.8 131/55 73 20 96% ra Gen - NARD lying semi-recumbent io bed Chest - decreased BS in the right base. clear anteriorly CV - RRR S1/S2 Abd - Soft, NT/ND, Positive BS Ext - 1+ pedal edema. left UE fistula accessed Psych - Nml mood and affect Skin - Warm and dry Objective Data Vital Signs Vital Signs: Vital Signs - 24 hr 10/13/23 16:00 10/13/23 19:45 10/13/23 20:00 Temperature 98.2 F Pulse Rate 78 80 75 Respiratory Rate 20 Blood Pressure 171/58 H Pulse Oximetry 98 Oxygen Delivery Fraction of Inspired Oxygen 10/14/23 00:00 10/14/23 04:19 10/14/23 04:00 Temperature 97.1 F L Pulse Rate 75 74 71 Respiratory Rate 20 Blood Pressure 141/64 H Pulse Oximetry 88 L Oxygen Delivery Fraction of Inspired Oxygen 10/14/23 07:49 06
[2023-10-14] MEDS: EPOETIN ALFA-EPBX 4,000 UNITS/ML VIAL 4000 UNITS IV PUSH (15:35)
[2023-10-14 16:42] LABS: Glucose Point of Care 104 mg/dl (65-105)
[2023-10-14] MEDS: DOXYCYCLINE HYCLATE 100 MG TABLET PO (21:13)
[2023-10-14] MEDS: MIRTAZAPINE 15 MG TABLET PO (21:13)
[2023-10-14] MEDS: MELATONIN 3 MG TABLET PO (21:13)
[2023-10-14 21:19] LABS: Glucose Point of Care 193 mg/dl (65-105)
[2023-10-15 05:12] VITALS: BP 157/63; PULSE 70; RESP 18; TEMP 35.9; O2SAT 93
[2023-10-15] MEDS: LEVOTHYROXINE SODIUM 112 MCG TABLET PO (06:01)
[2023-10-15] MEDS: CALCIUM ACETATE 667 MG TABLET BY MOUTH ×2 (06:01→09:11)
[2023-10-15 07:28] LABS: Glucose Point of Care 99 mg/dl (65-105)
[2023-10-15] MEDS: DOXYCYCLINE HYCLATE 100 MG TABLET PO (09:10)
[2023-10-15] MEDS: ATORVASTATIN 40 MG TABLET PO (09:10)
[2023-10-15] MEDS: CHOLECALCIFEROL 1,000 UNITS TABLET 2000 UNITS PO (09:10)
--- NOTE | 2023-10-15 09:10 | PM.DS ---
DS: Admitting Diagnosis Discharge Date 10/15/23 Admitting Diagnosis Chest pain DS: Discharge Diagnosis Discharge Diagnosis (1) Pneumonia: Qualifiers: Laterality: left Lung location: upper lobe of lung Pneumonia type: due to unspecified organism Qualified Code(s): J18.9 - Pneumonia, unspecified organism Code(s): J18.9 - Pneumonia, unspecified organism Status: Acute (2) Hypothyroidism, unspecified: Qualifiers: Hypothyroidism type: acquired Qualified Code(s): E03.9 - Hypothyroidism, unspecified Code(s): E03.9 - Hypothyroidism, unspecified Status: Acute (3) Mixed hyperlipidemia: Code(s): E78.2 - Mixed hyperlipidemia Status: Acute (4) End stage renal disease: Code(s): N18.6 - End stage renal disease Status: Chronic (5) Type 2 diabetes mellitus with diabetic polyneuropathy: Qualifiers: Diabetes mellitus detention insulin use: without detention use Qualified Code(s): E11.42 - Type 2 diabetes mellitus with diabetic polyneuropathy Code(s): E11.42 - Type 2 diabetes mellitus with diabetic polyneuropathy Status: Acute (6) Irritable bowel syndrome with diarrhea: Code(s): K58.0 - Irritable bowel syndrome with diarrhea Status: Acute DS: Summary Hospital Course Reason for hospitalization: 77yo female with ESRD, DM and HTN who presented to the ED with complaints of chest pain along with diarrhea. Please see H&P for details. Hospital Course: Patient presented to the ED 10/08/23 with hemoptysis and cough. CXR showing KEZIA PNA and enlarged tanvir suspicious for adenopathy. She was discharged with Augmentin and Azithromycin. Patient presented back to the ED on 10/11 with pleuritic chest pain and SOB with increased cough. CXR showed minimal haziness left upper lobe suspicious for PNA with stable prominent hilar region. Prior xrays from November 2022 also showing prominent tanvir but CT chest at that time showed no hilar abnormalities. The 'prominent hilar region' felt to be confluence of shadows. She was started on IV ceftriaxone and azithromycin but changed to ceftriaxone and doxycycline. No BCx collected. Sputum culture ordered but not collected. She remained on room air. Her chest pain resolved. She has end stage renal disease with HD T//Mon. ED note stated patient missed a HD treatment prior to admission so consider SOB related to fluid overload. Potassium was 5.4 at time of admission but now has resolved. Nephrology consulted for dialysis management. Fluid status improved and potassium normal. Patient complains of diarrhea since Monday. BM x5 one day but only one record the next. KUB showing normal bowel gas pattern. Possibly related to the abx and/or medications. She also has know IBS. We held colace. Diarrhea resolved. She feels drowsy this morning but no CP or SOB. Mild nonproductive cough. No diarrhea. She overall did well and was able to be discharged home on 10/15/23. Left message with family. Status at Discharge Cognitive/behavioral status at discharge: stable Time Spent with Patient Time attestation: Total time spent providing and/or coordinating discharge services: 35 minutes Time spent: Greater than 30 minutes Exam Narrative: AF 96.7 157/63 70 18 93% ra Gen - NARD siting up in the chair feeding herself breakfast Chest - left base rhonchi o/w clear, nml RR CV - RRR S1/S2 Abd - Soft, NT/ND, Positive BS Ext - 1+ pedal edema. left UE fistula thrill and bruit Psych - Nml mood and affect. AOx4. Skin - Warm and dry DS: Data Data Completed and Pending Labs on day of discharge: Labs from last 24 hours 10/15/23 10/14/23 10/14/23 07:18 19:57 16:35 POC Capillary Glucose 99 193 H 104 10/14/23 11:17 POC Capillary Glucose 156 H Discharge Plan Discharge Attending physician on discharge: Jose Antonio Olvera Consulting providers: Tara Morley Discharging Clinician: Tiffanie
[2023-10-15] MEDS: HEPARIN SODIUM 5,000 UNITS/ML VIAL 5000 UNITS SUB-Q (09:11)
[2023-10-15] MEDS: LOSARTAN POTASSIUM 50 MG TABLET PO (09:11)
[2023-10-15] MEDS: VITAMIN E 400 UNIT CAPSULE PO (09:11)
[2023-10-15] MEDS: SERTRALINE HCL 50 MG TABLET PO (09:11)
[2023-10-15 11:25] LABS: Glucose Point of Care 195 mg/dl (65-105)
== END 2023-10-15 12:20 | disposition home or self-care (01) | DRG 193 ==
LOC: ANHED 07:23 → ANH2MED 08:35
PROVIDERS: Emergency Medicine; Internal Medicine Nephrology; Nurse Practitioner; Admitting Provider Hospitalist; Emergency Provider Emergency Medicine; PCP Family Medicine Adolescent Medicine; Visit Provider Internal Medicine
DX: J18.9 Pneumonia, unspecified organism (principal); N18.6 End stage renal disease; I12.0 Hypertensive chronic kidney disease with stage 5 chronic kidney disease or end stage renal disease; Z99.2 Dependence on renal dialysis; D63.1 Anemia in chronic kidney disease; E03.9 Hypothyroidism, unspecified; E78.2 Mixed hyperlipidemia; E11.22 Type 2 diabetes mellitus with diabetic chronic kidney disease; E11.42 Type 2 diabetes mellitus with diabetic polyneuropathy; E87.5 Hyperkalemia; K58.0 Irritable bowel syndrome with diarrhea; M10.9 Gout, unspecified; M17.0 Bilateral primary osteoarthritis of knee
CPT/HCPCS: 36415; 71045; 71046; 74018; 80053; 82948; 83690; 83735; 84100; 84484; 85025; 85610; 85730; 86706; 87340; 93005; 96374; 97161; 99285; A9270; G0257; J0456; J0696; J1644; J1956; J2405; J7030; Q5105

== ENCOUNTER 2023-11-06 16:02 | Inpatient (IN) | payer OTHER, SELFPAY ==
[2023-11-06] VITALS (28 sets, daily range): BP systolic 100–132; BP diastolic 54–68; PULSE 77–91; RESP 16–23; TEMP 36.6–37.1; O2SAT 83–100; BMI 33.6
--- NOTE | ~2023-11-06 | XR_ITS ---
EXAMINATION: XR chest 2V DATE: 11/12/2023 10:00 INDICATION: Pulmonary edema. TECHNIQUE: Frontal and lateral views of the chest were obtained. COMPARISON: Chest single view 11/09/2023, chest CT 11/07/2023 FINDINGS: There is an interstitial pattern in the lungs, consistent with mild pulmonary edema. There are small pleural effusions. There are airspace opacities at the lung bases, likely atelectasis. No p neumothorax. There is enlargement of the cardiac silhouette. The central pulmonary is enlarged, consi stent with pulmonary arterial hypertension. IMPRESSION: 1. Mild pulmonary edema. 2. Small pleural effusions. 3. Improved airspace opacities at the lung bases, likely atelectasis. 4. Enlargement of the cardiac silhouette, likely a combination of cardiomegaly and pericardial effusi on. Reviewed, dictated and finalized at location E. IMPRESSION: 1. Mild pulmonary edema. 2. Small pleural effusions. 3. Improved airspace opacities at the lung bases, likely atelectasis. 4. Enlargement of the cardiac silhouette, likely a combination of cardiomegaly and pericardial effusion.
--- NOTE | ~2023-11-06 | XR_ITS ---
XR chest 1V portable Ordering provider: Roberto Wilkinson MD History: 78 years Female with . sob, dx with pneumonia 3wks ago, weakness . Comparison: October 14, 2023 FINDINGS: MEDIASTINUM: The cardiac silhouette is moderately enlarged. Prominent tanvir. Further evaluation of the tanvir is advised with highly suggestive lymphadenopathy or vascular congestion. LUNGS: No effusion or pneumothorax. Bibasilar opacification suggestive of atelectasis versus pneumoni a. OTHER: No free air under the diaphragm. Degenerative changes of the spine. IMPRESSION: Cardiomegaly with prominent tanvir. Bibasilar opacification suggestive of atelectasis versus pneumonia. Reviewed, dictated and finalized at location A.
--- NOTE | ~2023-11-06 | CT_ITS ---
CT diagnostic chest wo con Ordering provider: Cullen Shoemaker MD History: 78 years Female with . prominent hilum pneumonia . Comparison: November 23, 2022 Technique: CT chest without IV contrast. FINDINGS: VISUALIZED THORACIC INLET: Normal. MEDIASTINUM: Aorta/coronary arteries: Mild atheromatous disease. Heart/other: Cardiomegaly. Pericardial effusion of mild to moderate degree is noted. Lymph nodes: No mediastinal or hilar adenopathy. LUNGS: Bilateral mild to moderate pleural effusion. No pulmonary nodules or masses. No pneumothorax. Right basal pneumonia is noted. Atelectatic changes in the left lung base. VISUALIZED UPPER ABDOMEN: the visualized upper abdomen is normal. MUSCULOSKELETAL: Soft tissues: Small nodule seen in the fat of the left anterior abdominal wall which measures 1.7 cm. The superficial soft tissues are normal. Bones: Age appropriate degenerative changes of the spine. IMPRESSION: 1. Pericardial effusion. 2. Bilateral pleural effusion. 3. Right basal pneumonia. 4. Left basilar atelectasis. 5. Atelectasis versus pneumonia in the lingula and middle lobe Reviewed, dictated and finalized at location A.
--- NOTE | ~2023-11-06 | XR_ITS ---
EXAMINATION: XR chest 1V portable DATE: 11/09/2023 05:35 INDICATION: Pleural effusion. TECHNIQUE: A single frontal view of the chest was obtained. COMPARISON: Chest view 11/06/2023, chest CT 11/07/2023 FINDINGS: There are small pleural effusions. There is a diffuse interstitial pattern in the lungs. Th ere are airspace opacities in the mid and lower lung zones with a basilar predominance. No pneumothor ax. There is enlargement of the cardiac silhouette. IMPRESSION: 1. Worsened diffuse lung disease, consistent with pulmonary edema and atelectasis versus pneumonia. 2. Worsened small pleural effusions. 3. Enlargement of the cardiac silhouette, likely a combination of cardiomegaly and pericardial effusi on. Reviewed, dictated and finalized at location E. IMPRESSION: 1. Worsened diffuse lung disease, consistent with pulmonary edema and atelectas is versus pneumonia. 2. Worsened small pleural effusions. 3. Enlargement of the cardiac silhouette, likely a combination of cardiomegaly and pericardial effusion.
--- NOTE | 2023-11-06 16:04 | ECG_ITS ---
Test Date: 2023-11-06 16:10:43 Measurements Intervals [place] Rate: 87 P: 245 VA: 213 QRS: 26 QRSD: 196 T: 14 QT: 396 QTc: 478 Interpretive Statements ECTOPIC ATRIAL RHYTHM WITH FIRST DEGREE AV BLOCK RIGHT BUNDLE BRANCH BLOCK BASELINE ARTIFACT- I, II, AVR, AVL, AVF ABNORMAL ECG Compared to ECG 10/12/2023 08:37:01 First degree AV block now present Electronically Signed On 11-06-2023 20:28:31 CDT by Jose Luis Sánchez D.O.
[2023-11-06 16:17] LABS: Basophils Percent Auto 0.3 % (0.2-1.2); Eosinophils Percent Auto 0.1 % (0-4.4); Hematocrit 32.7 % (37.0-47.0); Hemoglobin 9.9 g/dL (12.0-15.0); Immature Granulocyte Absolute 0.23 K/mm3 (0.00-0.031); Immature Granulocyte Percent A 2.2 % (0-0.5); Lymphocytes Absolute Auto 0.75 K/mm3 (0.9-3.2); Lymphocytes Percent Auto 7.3 % (18.3-44.2); Mean Corpuscular HGB Conc 30.3 g/dl (32-36); Mean Corpuscular Hemoglobin 30.5 pg (26-34); Mean Corpuscular Volume 100.6 fl (80-100); Monocytes Absolute Auto 0.7 K/mm3 (0.1-0.6); Monocytes Percent Auto 7.2 % (2.6-8.5); Neutrophils Absolute Auto 8.6 K/mm3 (1.3-6.7); Neutrophils Percent Auto 82.9 % (45.5-73.1); Nucleated Red Blood Cells Perc 0.9 % (0.0-0.2); Platelet Count Result 154 k/mm3 (150-375); Red Blood Count 3.25 M/mm3 (4.2-5.4); Red Cell Distribution Width 17.2 % (11.5-14.5); White Blood Count 10.3 K/mm3 (4.5-10.0)
[2023-11-06 16:28] LABS: Alanine Aminotransferase 83 U/L (6-35); Albumin Level 3.6 g/dL (3.5-5.1); Alkaline Phosphatase 283 U/L (38-126); Anion Gap 8 mmol/L (4-12); Aspartate Amino Transferase 131 U/L (14-36); Bilirubin,Total 0.7 mg/dL (0.2-1.3); Blood Urea Nitrogen 34 mg/dL (7-17); Carbon Dioxide 32 mmol/L (22-30); Chloride 92 mmol/L (98-107); Estimated Glomerular Filt Rate 7; Glucose 130 mg/dL (65-110); Potassium 4.1 mmol/L (3.4-5.0); Sodium 132 mmol/L (137-145)
[2023-11-06 18:02] LABS: Lipase 57 U/L (23-300)
[2023-11-06 18:11] LABS: NT Pro B Type Natriuretic Pept > 30000 pg/mL (19.9-100)
--- NOTE | 2023-11-06 18:11 | ECG_ITS ---
Test Date: 2023-11-06 18:11:37 Measurements Intervals [place] Rate: 82 P: 46 MO: 170 QRS: -29 QRSD: 89 T: 9 QT: 363 QTc: 425 Interpretive Statements SINUS RHYTHM LEFT VENTRICULAR HYPERTROPHY AND ST-T CHANGE POSSIBLE ANTERIOR MYOCARDIAL INFARCTION , OF INDETERMINATE AGE INFERIOR INFARCT, AGE INDETERMINATE BASELINE ARTIFACT- I, II, III, AVR, AVL, AVF ABNORMAL ECG Compared to ECG 11/06/2023 16:10:43 Left ventricular hypertrophy now present Right bundle-branch block no longer present Electronically Signed On 11-07-2023 11:45:23 CDT by Jose Luis Sánchez D.O.
--- NOTE | 2023-11-06 18:22 | ED.SOB ---
HPI - SOB/Dyspnea General Chief Complaint: Shortness of Breath/Dyspnea Stated Complaint: sopb Time Seen by Provider: 11/06/23 17:43 Source: patient and family Mode of arrival: EMS Limitations: no limitations History of Present Illness HPI Narrative: This is an 78-year-old female that presents to the emergency department for shortness of breath. Reports over the last month she has been treated with several rounds of antibiotics for pneumonia. She has not really had much improvement. Has continued to have a productive cough of clear sputum. Reports worsening shortness of breath. Denies fever, chest pain or lower extremity edema. Related Data Home Medications Medication Instructions Recorded Confirmed ondansetron 4 mg disintegrating 4 mg translingual Q6H PRN Nausea 12/03/21 10/24/23 tablet calcium acetate(phosphat bind) 667 See Rx Instructions .Route .COMPLEX 12/04/21 10/24/23 mg capsule docusate sodium 100 mg capsule 100 mg PO BID 12/04/21 10/24/23 (Colace) vitamin B complex and vitamin C See Rx Instructions .Route .COMPLEX 12/04/21 10/24/23 no.20-folic acid 1 mg capsule (Triphrocaps) cholecalciferol (vitamin D3) 50 50 mcg PO DAILY 01/11/22 10/24/23 mcg (2,000 unit) capsule melatonin 3 mg capsule 3 mg PO QHS 01/11/22 10/24/23 vitamin E (dl, acetate) 180 mg 180 mg PO DAILY 01/11/22 10/24/23 (400 unit) capsule atorvastatin 40 mg tablet 40 mg PO DAILY 10/12/23 10/24/23 Allergies Allergy/AdvReac Type Severity Reaction Status Date / Time ibuprofen Allergy Mild Abdominal Verified 10/24/23 14:05 Pain Review of Systems Review of Systems: CONSTITUTIONAL: Denies fever ENT: Reports congestion CARDIOVASCULAR: Denies chest pain, or edema. RESPIRATORY: Reports cough and dyspnea. All systems reviewed & are unremarkable except as noted in HPI and below PMFSH Past Medical History Medical History Arthritis Chronic kidney disease Depression Diabetes Gout Hypertension Hypothyroidism Nephrolithiasis Pneumonia Primary localized osteoarthritis of knees, bilateral Surgical History Surgical History H/O inguinal hernia repair Hx of tonsillectomy Family History Family History Other Diabetes mellitus Heart disease Hypertension Social History Social History Social History: Patient lives with her daughter, grandson daughter's kids and her daughter daughters kids. Patient's did of diabetes in 1985. Patient wishes to be a full code does like her daughter to be her surrogate. She also does have 3 dogs and 2 cats that live with her as well. 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 HEAD: Normocephalic, atraumatic. EYES: EOMI. ENT: Nares clear, no rhinorrhea or epistaxis. Mucous membranes moist. Oropharynx without tonsillar hypertrophy exudate or other lesions. Bilateral TMs pearly mc non-bulging NECK: Supple. No adenopathy or masses. CHEST: N
[2023-11-06] MEDS: IPRATROPIUM 0.5 MG/ALBUTEROL SULFATE 2.5 MG AMPUL.NEB 3 ML INHALATION ×2 (18:39→20:24)
[2023-11-06 19:59] LABS: Influenza A QL RT-PCR Negative (Negative); Influenza B QL RT-PCR Negative (Negative); RSV RNA, RT-PCR Negative (Negative); SARS-CoV-2 RNA PCR Negative (Negative)
[2023-11-06 20:00] LABS: Alveolar/Arterial O2 Gradient 28.7 mmHg; Base Excess ABG 3.2 mEq/l (+/-2.0); Carboxyhemoglobin 0.7 % THb (0-2.0); Fractional Inspired Oxygen 23 %; Methemoglobin ABG 0.2 %THb (0-1.5); Oxygen Content ABG 13.4 %vol (16.0-22.0); Oxygen Saturation ABG 91.7 % (95.0-100.0); Oxyhemoglobin 90.5 % THb (90.0-100.0); PCO2 ABG 57.4 mmHg (35.0-45.0); PO2 ABG 66.8 mmHg (80.0-100.0); Reduced Hemoglobin 8.6 %THb (0-5.0); Total Hemoglobin 10.5 g/dL (12.0-18.0); pH ABG 7.336 (7.350-7.450)
[2023-11-06 20:01] LABS: Device NASAL CANNULA; Liters per Minute 0.5 LPM; Site Drawn RIGHT BRACHIAL
[2023-11-06] MEDS: CEFEPIME 2 GM/NS 50 ML 2 GM/50 ML BAG IVPB (20:41)
--- NOTE | 2023-11-06 21:06 | ADMGEN ---
This patient, Gisele Centeno, was admitted to 3 [facility] Surg Room 315-02. Patient/family oriented to hospital policies and general routines including ID bracelet, bed and alarms, visiting hours, pain management, procedures, bathroom and other care routines, personal items, smoking policy, room service/diet, and visiting hours. Information on how to activate the Rapid Response Team has been discussed. Patient/Family are encouraged to report perceived risks to care and to ask questions if they do not understand what they are told or what they should do.
[2023-11-06] MEDS: VANCOMYCIN 1,000 MG/NS 250 ML 1,000 MG/250 ML BAG 250 MG IVPB (21:37)
[2023-11-06 21:43] LABS: Glucose Point of Care 85 mg/dl (65-105)
--- NOTE | 2023-11-06 22:01 | PM.IMHP ---
H&P: HPI History of Present Illness Date/Time: 11/06/23 22:01 Chief Complaint: Shortness of breath Narrative: 78-year-old female with PMH ESRD TTHUSU via LUE AV fistula, depression, [id number] diabetes mellitus, hypertension, hypothyroidism, presenting with shortness of breath along with cough with sputum production. She was hospitalized for pneumonia and discharged on 10/08/2023 on Augmentin and azithromycin. She again presented on 10/11 and discharged on 10/14. Discharged on doxycycline 100 mg p.o. b.i.d. she visited outpatient medicine for worsening productive cough and shortness of breath. She was again prescribed doxycycline for another 2 weeks. Her last dialysis was yesterday on Monday and only 1.2 L was taken off. Due to the symptoms not resolving she presents to [facility] ER again today on 11/06/2023. ER evaluation demonstrates a WBC count 10,300, ABG 7.3/57/67/30. Saturating 80% on room air. Placed on 2 L nasal cannula. Chest x-ray demonstrating cardiomegaly with prominent hilar and bibasilar opacifications suggestive of atelectasis versus pneumonia. She received DuoNeb, cefepime and vancomycin, reports improvement in symptoms. Admitted on 11/06/2023 for further workup of acute hypoxic respiratory failure. Review of Systems Review of Systems: All systems reviewed & are unremarkable except as noted in HPI and below (Subjective) [facility] Past Medical History Medical History Arthritis Chronic kidney disease Depression Diabetes Gout Hypertension Hypothyroidism Nephrolithiasis Pneumonia Primary localized osteoarthritis of knees, bilateral Surgical History Surgical History H/O inguinal hernia repair Hx of tonsillectomy Family History Family History Other Diabetes mellitus Heart disease Hypertension Social History Social History Social History: Patient lives with her daughter, grandson daughter's kids and her daughter daughters kids. Patient's did of diabetes in 1985. Patient wishes to be a full code does like her daughter to be her surrogate. She also does have 3 dogs and 2 cats that live with her as well. 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 Gender identity (if verbalized by the patient): Female Sexual Orientation (if Verbalized by the Patient): Straight or Heterosexual Spiritual care concerns: No Agree to blood products: Yes Meds Home Medications and Allergies Home Medications Medication Instructions Recorded Confirmed Type ondansetron 4 mg disintegrating 4 mg translingual Q6H PRN Nausea 12/03/21 11/06/23 History tablet calcium acetate(phosphat bind) 667 See Rx Instructions .Route .COMPLEX 12/04/21 11/06/23 History mg capsule docusate sodium 100 mg capsule 100 mg PO BID 12/04/21 11/06/23 History (Colace) vitamin B complex and vitamin C See Rx Instructions .Route .COMPLEX 12/04/21 11/06/23 History no.20-folic acid 1 mg capsule (Triphrocaps) cholecalciferol (vitamin D3) 50 50 mcg PO DAILY 01/11/22 11/06/23 History mcg (2,000 unit) capsule melatonin 3 mg capsule 3 mg PO QHS 01/11/22 11/06/23 History vitamin E (dl, acetate) 180
[2023-11-07] VITALS (33 sets, daily range): BP systolic 84–127; BP diastolic 26–80; PULSE 46–97; RESP 17–20; TEMP 36.5–37.6; O2SAT 90–100
--- NOTE | 2023-11-07 | ECHO_ITS ---
Patient Info Name: Gisele Centeno Age: 78 years : 1945 Gender: Female Ht: 57 in Wt: 144 lbs BSA: 1.65 m2 HR: 78 bpm BP: 106 / 58 mmHg Technical Quality: Fair Exam Date: 11/07/2023 8:15 AM Exam Location: Echo Lab Patient Status: Inpatient Admit Date: 11/07/2023 Staff Ordering Physician: iTerra Gonzalez MD Kick Plate Installer: Mara Gonzalez RDCS Attending Provider: Tierra Gonzalez MD Exam Type: CA echo doppler color flow Study Info Indications J81.0 - Acute pulmonary edema Complete two-dimensional, color flow and Doppler transthoracic echocardiogram is performed. Summary 1. Complete two-dimensional, color flow and Doppler transthoracic echocardiogram is performed. 2. Left ventricular chamber dimension is normal. 3. Left ventricular systolic function is normal, estimated at 55-60%. 4. There is moderate concentric increased left ventricular wall thickness. 5. Left ventricular septal wall motion is abnormal with septal motion related to bundle branch block. 6. The left ventricular diastolic function is grade I diastolic dysfunction. 7. E/e' 23 is elevated. 8. Left atrial chamber dimension is mildly enlarged. 9. Right atrial chamber dimension is mildly enlarged. 10. There is severe aortic valve sclerosis. 11. There is moderate aortic valve stenosis with valve area of 1.1 cm2, mean gradient 12 mmHg, and peak velocity of 2.4 m/s. 12. The mitral valve has mildly calcified leaflets and severely calcified annulus. 13. There is mild mitral valve regurgitation. 14. There is mild tricuspid valve regurgitation. 15. Right ventricular systolic pressure is 37 mmHg which is normal. 16. There is trace pulmonic regurgitation. 17. Dilated inferior vena cava with >50% collapse upon inspiration consistent with normal right atrial pressure, 10 mmHg. 18. There is small circumferential pericardial effusion. Left Ventricle E/e' 23 is elevated. Left ventricular chamber dimension is normal. Left ventricular systolic function is normal, estimated at 55-60%. There is moderate concentric increased left ventricular wall thickness. Left ventricular septal wall motion is abnormal with septal motion related to bundle branch block. The left ventricular diastolic function is grade I diastolic dysfunction. Right Ventricle Right ventricular chamber dimension is normal. Right ventricular systolic function is normal. Left Atria Left atrial chamber dimension is mildly enlarged. Right Atria Right atrial chamber dimension is mildly enlarged. Aortic Valve There is moderate aortic valve stenosis with valve area of 1.1 cm2, mean gradient 12 mmHg, and peak velocity of 2.4 m/s. The aortic valve is trileaflet. There is severe aortic valve sclerosis. There is no aortic valve regurgitation. Pulmonic Valve There is trace pulmonic regurgitation. Mitral Valve The mitral valve has mildly calcified leaflets and severely calcified annulus. There is no mitral valve stenosis. There is mild mitral valve regurgitation. Tricuspid Valve Right ventricular systolic pressure is 37 mmHg which is normal. There is mild tricuspid valve regurgitation. Pericardium/Pleural No cardiac tamponade. There is small circumferential pericardial effusion. Inferior Vena Cava Dilated inferior vena cava with >50% collapse upon inspiration consistent with normal right atrial pressure, 10 mmHg. Aorta The aortic root size at the sinus of Valsalva is normal. Tricuspid Valve Name Value Normal
[2023-11-07 05:22] LABS: Basophils Absolute Auto 0.1 K/mm3 (0.0-0.1); Basophils Percent Auto 0.6 % (0.2-1.2); Eosinophils Percent Auto 0.5 % (0-4.4); Hematocrit 30.1 % (37.0-47.0); Immature Granulocyte Absolute 0.12 K/mm3 (0.00-0.031); Immature Granulocyte Percent A 1.5 % (0-0.5); Lymphocytes Absolute Auto 1.37 K/mm3 (0.9-3.2); Lymphocytes Percent Auto 16.9 % (18.3-44.2); Mean Corpuscular HGB Conc 29.9 g/dl (32-36); Mean Corpuscular Hemoglobin 30.2 pg (26-34); Mean Platelet Volume 9.9 fl (7.4-10.4); Monocytes Absolute Auto 0.7 K/mm3 (0.1-0.6); Monocytes Percent Auto 8.6 % (2.6-8.5); Neutrophils Absolute Auto 5.8 K/mm3 (1.3-6.7); Neutrophils Percent Auto 71.9 % (45.5-73.1); Platelet Count Result 136 k/mm3 (150-375); Red Blood Count 2.98 M/mm3 (4.2-5.4); Red Cell Distribution Width 17.3 % (11.5-14.5); White Blood Count 8.1 K/mm3 (4.5-10.0)
[2023-11-07 05:34] LABS: Hemoglobin A1C 5.2 % (<5.7)
[2023-11-07 05:40] LABS: Alanine Aminotransferase 76 U/L (6-35); Albumin Level 2.8 g/dL (3.5-5.1); Alkaline Phosphatase 221 U/L (38-126); Anion Gap 7 mmol/L (4-12); Aspartate Amino Transferase 104 U/L (14-36); Bilirubin,Total 0.6 mg/dL (0.2-1.3); Blood Urea Nitrogen 39 mg/dL (7-17); Calcium 10.2 mg/dL (8.4-10.2); Carbon Dioxide 29 mmol/L (22-30); Chloride 95 mmol/L (98-107); Estimated Glomerular Filt Rate 7; Glucose 70 mg/dL (65-110); Phosphorus 4.1 mg/dL (2.5-4.5); Potassium 4.4 mmol/L (3.4-5.0); Sodium 131 mmol/L (137-145)
[2023-11-07 05:44] LABS: Vancomycin Trough 11.6 ug/mL (10.0-20.0)
[2023-11-07 05:57] LABS: Procalcitonin 0.8 ng/mL
[2023-11-07] MEDS: LEVOTHYROXINE SODIUM 112 MCG TABLET PO (05:57)
[2023-11-07 06:11] LABS: Hepatitis B Surface Antigen Negative (Negative)
[2023-11-07 06:39] LABS: Hepatitis B Surface Anti Res Positive
[2023-11-07 07:23] LABS: MRSA (PCR) NOT DETECTED (NOT DETECTE)
[2023-11-07] MEDS: IPRATROPIUM 0.5 MG/ALBUTEROL SULFATE 2.5 MG AMPUL.NEB 3 ML INHALATION ×3 (07:37→20:20)
[2023-11-07 07:49] LABS: Glucose Point of Care 64 mg/dl (65-105)
[2023-11-07] MEDS: CHOLECALCIFEROL 1,000 UNITS TABLET 2000 UNITS PO (08:48)
[2023-11-07] MEDS: VITAMIN E 400 UNIT CAPSULE PO (08:49)
[2023-11-07] MEDS: LOSARTAN POTASSIUM 50 MG TABLET PO (08:49)
[2023-11-07] MEDS: ATORVASTATIN 40 MG TABLET PO (08:49)
[2023-11-07] MEDS: DOCUSATE SODIUM 100 MG CAPSULE PO ×2 (08:49→20:13)
[2023-11-07] MEDS: ENOXAPARIN 30 MG/0.3 ML SYRINGE SUB-Q (08:50)
--- NOTE | 2023-11-07 09:50 | PM.CNNEP ---
Assessment and Plan Assessment and plan (1) End stage renal disease: Code(s): N18.6 - End stage renal disease Status: Chronic Assessment and Plan: HD today continue T/T/S dialysis schedule while hospitalized follow electrolytes, volume status, and clearance (2) Acute respiratory failure with hypoxia: Code(s): J96.01 - Acute respiratory failure with hypoxia Status: Acute Assessment and Plan: multiple hospitalizations/admissions for pneumonia in the last month noted hypoxia and hypercapnia on presentation CXR results noted suspect a combination of pneumonia + volume overload fluid removal with dialysis as tolerated by hemodynamics supplemental oxygen and nebulizer treatments wean oxygen as tolerated (3) Pneumonia: Qualifiers: Laterality: bilateral Lung location: unspecified part of lung Pneumonia type: due to unspecified organism Qualified Code(s): J18.9 - Pneumonia, unspecified organism Code(s): J18.9 - Pneumonia, unspecified organism Status: Acute Assessment and Plan: as suggested by admission symptoms (SOB + productive cough + hypoxia) CXR results noted on IV antibiotics follow cultures monitor respiratory status (4) Anemia: Code(s): D64.9 - Anemia, unspecified Status: Chronic Assessment and Plan: due to ESRD and likely worsened by acute infection Epogen with HD follow trend of H/H (5) Hypertension: Code(s): I10 - Essential (primary) hypertension Status: Chronic Assessment and Plan: relative hypotension noted BP medications with parameters follow trend of hemodynamics (6) Type 2 diabetes mellitus with diabetic polyneuropathy: Qualifiers: Diabetes mellitus ad terminal makeup operator insulin use: without long-term use Qualified Code(s): E11.42 - Type 2 diabetes mellitus with diabetic polyneuropathy Code(s): E11.42 - Type 2 diabetes mellitus with diabetic polyneuropathy Status: Acute Assessment and Plan: follow accu-cheks glycemic control per hospitalists I will continue to follow the patient with you while she remains hospitalized to make further recommendations as deemed necessary. Thank you for allowing me to participate in the care of this patient. History of Present Illness Reason for Consult Consult date: 11/07/23 Reason for consult: end stage renal disease Chief Complaint Chief complaint: Acute Respiratory Failure with Hypoxia/Pneumonia History of Present Illness Narrative: The patient is an 78-year-old female with a past medical history as outlined below who presented to [facility] Emergency Room with complaints of shortness of breath in association with a productive cough. The patient has already been previously hospitalized in early October as well as mid October 2019 for for similar symptoms. Each time she was diagnosed with pneumonia and initially treated with IV antibiotics with subsequent transition to oral antibiotics on discharge. Unfortunately, it would seem that when she is discharged and continued on outpatient antibiotic therapy, her clinical symptoms deteriorate to what they were before much like this time with increasing shortness of breath and a productive cough. Given the recurrence of the symptoms and the progressive nature of them getting worse, she presented to the emergency room for further assessment. Workup and evaluation emergency room demonstrated the patient to be in no acute distress as she was hemodynamically stable but she was noted be quite hypoxic at 80% on room air. She was subsequently placed on 2 L of supplemental oxygen with improvement in her oxygen saturations. Her CBC showed a mildly elevated white blood cell count of 10.3 and her chemistry demonstrated labs consistent with her known history of end-stage renal disease without any critical electrolyte abnormalities. Her chest x-ray demonstrated cardiomegaly
--- NOTE | 2023-11-07 09:50 | P.CONNP_ITS ---
Assessment and Plan Assessment and plan (1) End stage renal disease: Code(s): N18.6 - End stage renal disease Status: Chronic Assessment and Plan: * HD today * continue T/T/S dialysis schedule while hospitalized * follow electrolytes, volume status, and clearance (2) Acute respiratory failure with hypoxia: Code(s): J96.01 - Acute respiratory failure with hypoxia Status: Acute Assessment and Plan: * multiple hospitalizations/admissions for pneumonia in the last month * noted hypoxia and hypercapnia on presentation * CXR results noted * suspect a combination of pneumonia + volume overload * fluid removal with dialysis as tolerated by hemodynamics * supplemental oxygen and nebulizer treatments * wean oxygen as tolerated (3) Pneumonia: Qualifiers: Laterality: bilateral Lung location: unspecified part of lung Pneumonia type: due to unspecified organism Qualified Code(s): J18.9 - Pneumonia, unspecified organism Code(s): J18.9 - Pneumonia, unspecified organism Status: Acute Assessment and Plan: * as suggested by admission symptoms (SOB + productive cough + hypoxia) * CXR results noted * on IV antibiotics * follow cultures * monitor respiratory status (4) Anemia: Code(s): D64.9 - Anemia, unspecified Status: Chronic Assessment and Plan: * due to ESRD and likely worsened by acute infection * Epogen with HD * follow trend of H/H (5) Hypertension: Code(s): I10 - Essential (primary) hypertension Status: Chronic Assessment and Plan: * relative hypotension noted * BP medications with parameters * follow trend of hemodynamics (6) Type 2 diabetes mellitus with diabetic polyneuropathy: Qualifiers: Diabetes mellitus half-way insulin use: without press tender long goods use Qualified Code(s): E11.42 - Type 2 diabetes mellitus with diabetic polyneuropathy Code(s): E11.42 - Type 2 diabetes mellitus with diabetic polyneuropathy Status: Acute Assessment and Plan: * follow accu-cheks * glycemic control per hospitalists I will continue to follow the patient with you while she remains hospitalized to make further recommendations as deemed necessary. Thank you for allowing me to participate in the care of this patient. History of Present Illness Reason for Consult Consult date: 11/07/23 Reason for consult: end stage renal disease Chief Complaint Chief complaint: Acute Respiratory Failure with Hypoxia/Pneumonia History of Present Illness Narrative: The patient is an 78-year-old female with a past medical history as outlined below who presented to [facility] Emergency Room with complaints of shortness of breath in association with a productive cough. The patient has already been previously hospitalized in early October as well as mid October 2019 for for similar symptoms. Each time she was diagnosed with pneumonia and initially treated with IV antibiotics with subsequent transition to oral antibiotics on discharge. Unfortunately, it would seem that when she is discharged and continued on outpatient antibiotic therapy, her clinical symptoms deteriorate to what they were before much like this time with increasing shortness of breath and a productive cough. Given the recurrence of the symptoms and the progressive nature of them getting worse, she presented to the emergency room for further assessment. Workup and evaluation emergency room demonstrated the patient to be in no acute distress as she was hemodynamically stable but she
[2023-11-07 11:53] LABS: Glucose Point of Care 135 mg/dl (65-105)
--- NOTE | 2023-11-07 15:10 | PM.IMPN ---
Progress Note: A&P Assessment and Plan (1) Acute respiratory failure with hypoxia and hypercapnia: Code(s): J96.01 - Acute respiratory failure with hypoxia; J96.02 - Acute respiratory failure with hypercapnia Status: Acute (2) ESRD (end stage renal disease) on dialysis: Code(s): N18.6 - End stage renal disease; Z99.2 - Dependence on renal dialysis Status: Acute (3) Leukocytosis: Code(s): D72.829 - Elevated white blood cell count, unspecified Status: Acute (4) Hospital-acquired pneumonia: Code(s): J18.9 - Pneumonia, unspecified organism; Y95 - Nosocomial condition Status: Acute Plan 78-year-old female with PMH ESRD TTHUSU via LUE AV fistula, depression, [id number] diabetes mellitus, hypertension, hypothyroidism, presenting with shortness of breath along with cough with sputum production. She was hospitalized for pneumonia and discharged on 10/08/2023 on Augmentin and azithromycin. She again presented on 10/11 and discharged on 10/14. Discharged on doxycycline 100 mg p.o. b.i.d. she visited outpatient medicine for worsening productive cough and shortness of breath. She was again prescribed doxycycline for another 2 weeks. Her last dialysis was yesterday on Monday and only 1.2 L was taken off. Due to the symptoms not resolving she presents to [facility] again today on 11/06/2023. ER evaluation demonstrates a WBC count 10,300, ABG 7.3/57/67/30. BNP greater than 30,000 Saturating 80% on room air. Placed on 2 L nasal cannula. Chest x-ray demonstrating cardiomegaly with prominent hilar and bibasilar opacifications suggestive of atelectasis versus pneumonia. She received DuoNeb, cefepime and vancomycin, reports improvement in symptoms. Admitted on 11/06/2023 for further workup of acute hypoxic respiratory failure. # acute hypoxic and hypercapnic respiratory failure # hospital-acquired pneumonia -status: Multiple recent admissions for pneumonia. Shortness of breath has not improved, presents with increased cough productive of white sputum. Found to have hypercapnia and hypoxia on admission. Chest x-ray demonstrating bibasilar opacifications. Lung auscultation demonstrates diffuse crackles. BNP greater than 30,000 -currently on 3 L nasal cannula, wean as tolerated to keep SpO2 greater than 92%. -check surface echocardiogram, BNP elevated. -nephrology notified. Patient will need dialysis for volume removal. -pCO2 57 on admission. Continue scheduled bronchodilators. ApneaLink done on 3 L oxygen which was Reviewed -blood cultures and sputum culture pending. Cefepime and vancomycin started on admission 11/06/2023 for hospital-acquired pneumonia MRSA nares negative. Will stop vancomycin. Add atypical coverage with azithromycin With recurrent pneumonia will also need to get swallow evaluation and may need MBS will get CT chest to further evaluate prominent hilum noted on chest x-ray Which has been a persistent finding in all recent x-rays echo 11/07/2019 EF 55-60% moderate concentric left ventricular wall thickness grade 1 diastolic dysfunction moderate aortic valve stenosis RVSP 37 mm Hg which is normal # leukocytosis -status: Mild which has now resolved -likely due to the above. Continue to monitor. procalcitonin 0.8 # transaminitis -status: Mild, chronic. -continue to monitor # ESRD on HD TTHSU -status: Chronic -appears volume overloaded. Nephrology consulted # [id number] diabetes mellitus -status: Last A1c 4.6% on 09/02/2022, recheck at 5.2 -hold AUTO SEAT COVER INSTALLER linagliptin -glucose monitoring ACHS, LDISS, hypoglycemia protocol # depression: Continue AUTO SEAT COVER INSTALLER mirtazapine 15 mg p.o. q.h.s., sertraline 50 mg p.o. q.h.s. # hypertension: Blood pressure acceptable, continue to monitor # hypothyroidism: Continue AUTO SEAT COVER INSTALLER levothyroxine 112 mcg daily F/E/N: saline lock IV, replace lytes as needed, renal dialysis diet GI prophylaxis: Not indicated DVT prophylaxis: Lovenox 30 mg
[2023-11-07 16:36] LABS: Glucose Point of Care 259 mg/dl (65-105)
[2023-11-07] MEDS: AZITHROMYCIN 250 MG TABLET 500 MG PO (17:37)
[2023-11-07] MEDS: INSULIN ASPART (*BKC) 100 UNITS/ML SUB-Q (17:41)
[2023-11-07] MEDS: SERTRALINE HCL 50 MG TABLET PO (20:13)
[2023-11-07] MEDS: MIRTAZAPINE 15 MG TABLET PO (20:13)
[2023-11-07] MEDS: MELATONIN 3 MG TABLET PO (20:13)
[2023-11-07] MEDS: CEFEPIME 1 GM/NS 50 ML 1 GM/50 ML BAG IVPB (20:13)
--- NOTE | 2023-11-07 22:40 | ECG_ITS ---
Test Date: 2023-11-07 23:19:29 Measurements Intervals [place] Rate: 104 P: 234 CT: 168 QRS: 32 QRSD: 191 T: 10 QT: 343 QTc: 452 Interpretive Statements SINUS TACHYCARDIA VENTRICULAR BIGEMINY BORDERLINE AV CONDUCTION DELAY RIGHT BUNDLE BRANCH BLOCK ABNORMAL ECG Compared to ECG 11/06/2023 18:11:37 VENTRICULAR BIGEMINY NOW PRESENT Electronically Signed On 11-08-2023 06:20:19 CDT by Jose Luis Sánchez D.O.
[2023-11-07 22:57] LABS: Glucose Point of Care 124 mg/dl (65-105)
[2023-11-07 23:23] LABS: Magnesium 2.4 mg/dL (1.6-2.3)
[2023-11-07 23:24] LABS: Anion Gap 3 mmol/L (4-12); Blood Urea Nitrogen 17 mg/dL (7-17); Calcium 8.7 mg/dL (8.4-10.2); Carbon Dioxide 34 mmol/L (22-30); Chloride 99 mmol/L (98-107); Estimated Glomerular Filt Rate 12; Glucose 121 mg/dL (65-110); Potassium 3.8 mmol/L (3.4-5.0); Sodium 136 mmol/L (137-145)
[2023-11-08] VITALS (17 sets, daily range): BP systolic 98–121; BP diastolic 52–61; PULSE 67–98; RESP 18; TEMP 36.3–36.8; O2SAT 93–99
--- NOTE | 2023-11-08 01:03 | P.PNCROSS_ITS ---
Event Note Event Note Event Note: 11/07/2023 at approximately 22:00 I received a call from the patient's nurse. Rayshawn smith noted that she went from a sinus rhythm to ventricular bigeminy. The patient was asymptomatic and has stable blood pressures. Labs were ordered and she had no critical electrolyte abnormalities. Within an hour or so she reverted back to a sinus rhythm.
[2023-11-08] MEDS: IPRATROPIUM 0.5 MG/ALBUTEROL SULFATE 2.5 MG AMPUL.NEB 3 ML INHALATION ×4 (02:14→19:47)
[2023-11-08] MEDS: LEVOTHYROXINE SODIUM 112 MCG TABLET PO (05:21)
[2023-11-08 06:13] LABS: Basophils Percent Auto 0.4 % (0.2-1.2); Eosinophils Percent Auto 0.4 % (0-4.4); Hematocrit 29.9 % (37.0-47.0); Hemoglobin 8.8 g/dL (12.0-15.0); Immature Granulocyte Absolute 0.06 K/mm3 (0.00-0.031); Immature Granulocyte Percent A 0.8 % (0-0.5); Lymphocytes Absolute Auto 0.89 K/mm3 (0.9-3.2); Lymphocytes Percent Auto 12.5 % (18.3-44.2); Mean Corpuscular HGB Conc 29.4 g/dl (32-36); Mean Corpuscular Hemoglobin 30.2 pg (26-34); Mean Corpuscular Volume 102.7 fl (80-100); Mean Platelet Volume 10.1 fl (7.4-10.4); Monocytes Absolute Auto 0.6 K/mm3 (0.1-0.6); Monocytes Percent Auto 8.5 % (2.6-8.5); Neutrophils Absolute Auto 5.5 K/mm3 (1.3-6.7); Neutrophils Percent Auto 77.4 % (45.5-73.1); Nucleated Red Blood Cells Perc 0.6 % (0.0-0.2); Platelet Count Result 117 k/mm3 (150-375); Red Blood Count 2.91 M/mm3 (4.2-5.4); Red Cell Distribution Width 18.1 % (11.5-14.5); White Blood Count 7.1 K/mm3 (4.5-10.0)
[2023-11-08 06:28] LABS: Alanine Aminotransferase 64 U/L (6-35); Albumin Level 3.1 g/dL (3.5-5.1); Alkaline Phosphatase 225 U/L (38-126); Anion Gap 4 mmol/L (4-12); Aspartate Amino Transferase 69 U/L (14-36); Bilirubin,Total 0.6 mg/dL (0.2-1.3); Blood Urea Nitrogen 20 mg/dL (7-17); Calcium 8.8 mg/dL (8.4-10.2); Carbon Dioxide 33 mmol/L (22-30); Chloride 99 mmol/L (98-107); Estimated Glomerular Filt Rate 11; Glucose 113 mg/dL (65-110); Magnesium 2.4 mg/dL (1.6-2.3); Potassium 3.8 mmol/L (3.4-5.0); Sodium 136 mmol/L (137-145)
[2023-11-08 06:52] LABS: Anisocytosis 1+; Basophilic Stippling 1+; Platelet Estimate Slightly Decreased (Adequate); Polychromasia 1+; Schistocytes None Seen
[2023-11-08 07:55] LABS: Glucose Point of Care 118 mg/dl (65-105)
[2023-11-08] MEDS: DOCUSATE SODIUM 100 MG CAPSULE PO ×2 (08:25→21:15)
[2023-11-08] MEDS: CHOLECALCIFEROL 1,000 UNITS TABLET 2000 UNITS PO (08:25)
[2023-11-08] MEDS: VITAMIN E 400 UNIT CAPSULE PO (08:25)
[2023-11-08] MEDS: LOSARTAN POTASSIUM 50 MG TABLET PO (08:25)
[2023-11-08] MEDS: ATORVASTATIN 40 MG TABLET PO (08:26)
[2023-11-08] MEDS: AZITHROMYCIN 250 MG TABLET 500 MG PO (08:26)
[2023-11-08] MEDS: ENOXAPARIN 30 MG/0.3 ML SYRINGE SUB-Q (08:26)
--- NOTE | 2023-11-08 10:00 | PCSTNOTE ---
Please refer to the Bedside Swallow Evaluation in the EMR. Please note, silent aspiration cannot be ruled out at bedside.
[2023-11-08 11:38] LABS: Glucose Point of Care 96 mg/dl (65-105)
--- NOTE | 2023-11-08 12:53 | P.PNNP_ITS ---
Progress Note: A&P Assessment and Plan (1) End stage renal disease: Code(s): N18.6 - End stage renal disease Status: Chronic Assessment and Plan: * HD tomorrow * continue T/T/S dialysis schedule while hospitalized * follow electrolytes, volume status, and clearance (2) Acute respiratory failure with hypoxia: Code(s): J96.01 - Acute respiratory failure with hypoxia Status: Acute Assessment and Plan: * multiple hospitalizations/admissions for pneumonia in the last month * noted hypoxia and hypercapnia on presentation * CXR results noted * suspect a combination of pneumonia + volume overload * fluid removal with dialysis as tolerated by hemodynamics * supplemental oxygen and nebulizer treatments * wean oxygen as tolerated (3) Pneumonia: Qualifiers: Laterality: bilateral Lung location: unspecified part of lung Pneumon ia type: due to unspecified organism Qualified Code(s): J18.9 - Pneumonia, unspecified organism Code(s): J18.9 - Pneumonia, unspecified organism Status: Acute Assessment and Plan: * as suggested by admission symptoms (SOB + productive cough + hypoxia) * CXR results noted * on IV antibiotics * follow cultures * monitor respiratory status (4) Anemia: Code(s): D64.9 - Anemia, unspecified Status: Chronic Assessment and Plan: * due to ESRD and likely worsened by acute infection * Epogen with HD * follow trend of H/H (5) Hypertension: Code(s): I10 - Essential (primary) hypertension Status: Chronic Assessment and Plan: * relative hypotension noted * BP medications with parameters * follow trend of hemodynamics (6) Type 2 diabetes mellitus with diabetic polyneuropathy: Qualifiers: Diabetes mellitus care home insulin use: without exterminator helper termite use Qualified Code(s): E11.42 - Type 2 diabetes mellitus with diabetic polyneuropathy Code(s): E11.42 - Type 2 diabetes mellitus with diabetic polyneuropathy Status: Acute Assessment and Plan: * follow accu-cheks * glycemic control per hospitalists Will continue to follow. Subjective Date/time seen: 11/08/23 12:53 Interval history: Follow-up for end stage renal disease on hemodialysis. Tolerated dialysis treatment yesterday although fluid removal/ultrafiltration was quite limited due to suboptimal hemodynamics/persistent hypotension despite use of IV albumin; still requiring 1L of supplemental oxygen to maintain saturations; relative hypotension still noted today. Exam Narrative: General: elderly female in NAD Heart: normal S1 and S2; no rub Lungs: coarse breath sounds; decreased at bases; some scattered wheezing Abdomen: soft, nontender, nondistended, positive bowel sounds Extremities: no cyanosis or clubbing; 1+ edema (chronic) Skin: warm and dry Objective Data Vital Signs Vital Signs: Vital Signs Temp Pulse Resp BP Pulse Ox O2 Del Method O2 Flow Rate 11/08/23 12:00 92 11/08/23 08:00 79 93 Nasal Cannula 1 11/08/23 07:10 85 18 11/08/23 07:00 84 18 11/08/23 07:00 84 18 93 Nasal Cannula 1 11/08/23 06:00 97.8 F 85 18 113/52 L 96 11/08/23 04:00 86 11/08/23 02:21 85 18 11/08/23 02:14 88 18 11/08/23 00:00 98
--- NOTE | 2023-11-08 12:53 | PM.PNNEP ---
Progress Note: A&P Assessment and Plan (1) End stage renal disease: Code(s): N18.6 - End stage renal disease Status: Chronic Assessment and Plan: HD tomorrow continue T/T/S dialysis schedule while hospitalized follow electrolytes, volume status, and clearance (2) Acute respiratory failure with hypoxia: Code(s): J96.01 - Acute respiratory failure with hypoxia Status: Acute Assessment and Plan: multiple hospitalizations/admissions for pneumonia in the last month noted hypoxia and hypercapnia on presentation CXR results noted suspect a combination of pneumonia + volume overload fluid removal with dialysis as tolerated by hemodynamics supplemental oxygen and nebulizer treatments wean oxygen as tolerated (3) Pneumonia: Qualifiers: Laterality: bilateral Lung location: unspecified part of lung Pneumonia type: due to unspecified organism Qualified Code(s): J18.9 - Pneumonia, unspecified organism Code(s): J18.9 - Pneumonia, unspecified organism Status: Acute Assessment and Plan: as suggested by admission symptoms (SOB + productive cough + hypoxia) CXR results noted on IV antibiotics follow cultures monitor respiratory status (4) Anemia: Code(s): D64.9 - Anemia, unspecified Status: Chronic Assessment and Plan: due to ESRD and likely worsened by acute infection Epogen with HD follow trend of H/H (5) Hypertension: Code(s): I10 - Essential (primary) hypertension Status: Chronic Assessment and Plan: relative hypotension noted BP medications with parameters follow trend of hemodynamics (6) Type 2 diabetes mellitus with diabetic polyneuropathy: Qualifiers: Diabetes mellitus custodial insulin use: without exterminator termite use Qualified Code(s): E11.42 - Type 2 diabetes mellitus with diabetic polyneuropathy Code(s): E11.42 - Type 2 diabetes mellitus with diabetic polyneuropathy Status: Acute Assessment and Plan: follow accu-cheks glycemic control per hospitalists Will continue to follow. Subjective Date/time seen: 11/08/23 12:53 Interval history: Follow-up for end stage renal disease on hemodialysis. Tolerated dialysis treatment yesterday although fluid removal/ultrafiltration was quite limited due to suboptimal hemodynamics/persistent hypotension despite use of IV albumin; still requiring 1L of supplemental oxygen to maintain saturations; relative hypotension still noted today. Exam Narrative: General: elderly female in NAD Heart: normal S1 and S2; no rub Lungs: coarse breath sounds; decreased at bases; some scattered wheezing Abdomen: soft, nontender, nondistended, positive bowel sounds Extremities: no cyanosis or clubbing; 1+ edema (chronic) Skin: warm and dry Objective Data Vital Signs Vital Signs: Vital Signs Temp Pulse Resp BP Pulse Ox O2 Del Method O2 Flow Rate 11/08/23 12:00 92 11/08/23 08:00 79 93 Nasal Cannula 1 11/08/23 07:10 85 18 11/08/23 07:00 84 18 11/08/23 07:00 84 18 93 Nasal Cannula 1 11/08/23 06:00 97.8 F 85 18 113/52 L 96 11/08/23 04:00 86 11/08/23 02:21 85 18 11/08/23 02:14 88 18 11/08/23 00:00 98 11/07/23 20:00 94 11/07/23 20:00 91 Nasal Cannula 1 11/07/23 22:00 98.6 F 97 18 97/80 L 91 11/07/23 20:28 88 20 11/07/23 20:20 93 90 Nasal Cannula 1 11/07/23 20:20 93 20 Intake/Output Intake/Output: Intake & Output 11/05/23 11/06/23 11/07/23 11/08/23 23:59 23:59 23:59 23:59 Intake Total 580 390 Output Total 241 Balance 339 390 Meds/Results Medications: Active Medications Generic Name Dose Route Start Last Admin Trade Name Freq PRN Reason Stop Dose Admin Albuterol/Ipratropium 3 ml 11/08/23 20:00 Ipratropium 0.5 Mg/Albuterol Sulfate 2.5 Mg Ampul.Neb
--- NOTE | 2023-11-08 14:18 | PM.IMPN ---
Progress Note: A&P Assessment and Plan (1) Acute respiratory failure with hypoxia and hypercapnia: Code(s): J96.01 - Acute respiratory failure with hypoxia; J96.02 - Acute respiratory failure with hypercapnia Status: Acute (2) ESRD (end stage renal disease) on dialysis: Code(s): N18.6 - End stage renal disease; Z99.2 - Dependence on renal dialysis Status: Acute (3) Leukocytosis: Code(s): D72.829 - Elevated white blood cell count, unspecified Status: Acute (4) Hospital-acquired pneumonia: Code(s): J18.9 - Pneumonia, unspecified organism; Y95 - Nosocomial condition Status: Acute Plan 78-year-old female with PMH ESRD TTHUSU via LUE AV fistula, depression, cel-brtghzw-xhxkfcwdu diabetes mellitus, hypertension, hypothyroidism, presenting with shortness of breath along with cough with sputum production. She was hospitalized for pneumonia and discharged on 10/08/2023 on Augmentin and azithromycin. She again presented on 10/11 and discharged on 10/14. Discharged on doxycycline 100 mg p.o. b.i.d. she visited outpatient medicine for worsening productive cough and shortness of breath. She was again prescribed doxycycline for another 2 weeks. Her last dialysis was yesterday on Monday and only 1.2 L was taken off. Due to the symptoms not resolving she presents to [place] [facility] again today on 11/06/2023. ER evaluation demonstrates a WBC count 10,300, ABG 7.3/57/67/30. BNP greater than 30,000 Saturating 80% on room air. Placed on 2 L nasal cannula. Chest x-ray demonstrating cardiomegaly with prominent hilar and bibasilar opacifications suggestive of atelectasis versus pneumonia. She received DuoNeb, cefepime and vancomycin, reports improvement in symptoms. Admitted on 11/06/2023 for further workup of acute hypoxic respiratory failure. Cxr ordered rpt BNP and BMP Cardiology for pericardial effusion unable to give lasix today low BP # acute hypoxic and hypercapnic respiratory failure # hospital-acquired pneumonia -status: Multiple recent admissions for pneumonia. Shortness of breath has not improved, presents with increased cough productive of white sputum. Found to have hypercapnia and hypoxia on admission. Chest x-ray demonstrating bibasilar opacifications. Lung auscultation demonstrates diffuse crackles. BNP greater than 30,000 -currently on 3 L nasal cannula, wean as tolerated to keep SpO2 greater than 92%. -check surface echocardiogram, BNP elevated. -nephrology notified. Patient will need dialysis for volume removal. -pCO2 57 on admission. Continue scheduled bronchodilators. ApneaLink done on 3 L oxygen which was Reviewed -blood cultures and sputum culture pending. Cefepime and vancomycin started on admission 11/06/2023 for hospital-acquired pneumonia MRSA nares negative. Will stop vancomycin. Add atypical coverage with azithromycin With recurrent pneumonia will also need to get swallow evaluation and may need MBS will get CT chest to further evaluate prominent hilum noted on chest x-ray Which has been a persistent finding in all recent x-rays echo 11/07/2019 EF 55-60% moderate concentric left ventricular wall thickness grade 1 diastolic dysfunction moderate aortic valve stenosis RVSP 37 mm Hg which is normal # leukocytosis wcc is better # transaminitis -status: Mild, chronic. -continue to monitor # ESRD on HD TTHSU -status: Chronic -appears volume overloaded. Nephrology consulted # frg-pzszvlj-tpudcwuxw diabetes mellitus -status: Last A1c 4.6% on 09/02/2022, recheck at 5.2 # depression: Continue BRUSH WORKER mirtazapine 15 mg p.o. q.h.s., sertraline 50 mg p.o. q.h.s. # hypertension: Blood pressure acceptable, continue to monitor # hypothyroidism: Continue BRUSH WORKER levothyroxine 112 mcg daily Continue present care hopeful dc on Monday or Monday Home oxygen assessment soon Family wants her to go home Subjective Date/time seen: 11/08/23 14:18 Interval history: Pt slow improv
[2023-11-08 16:30] LABS: Glucose Point of Care 147 mg/dl (65-105)
--- NOTE | 2023-11-08 17:35 | PC.NURSE ---
This RN saw pt and assessed. Agreeable with previous gas systems worker. All pt needs met during shift. Scheduled and PRN medications administered.
[2023-11-08 21:00] LABS: Glucose Point of Care 171 mg/dl (65-105)
[2023-11-08] MEDS: SERTRALINE HCL 50 MG TABLET PO (21:15)
[2023-11-08] MEDS: CEFEPIME 1 GM/NS 50 ML 1 GM/50 ML BAG IVPB (21:15)
[2023-11-08] MEDS: MELATONIN 3 MG TABLET PO (21:15)
[2023-11-08] MEDS: MIRTAZAPINE 15 MG TABLET PO (21:15)
[2023-11-09] VITALS (35 sets, daily range): BP systolic 122–168; BP diastolic 60–84; PULSE 81–100; RESP 18–24; TEMP 36.1–37.9; O2SAT 94–100
[2023-11-09] MEDS: IPRATROPIUM 0.5 MG/ALBUTEROL SULFATE 2.5 MG AMPUL.NEB 3 ML INHALATION ×4 (02:04→20:13)
[2023-11-09] MEDS: LEVOTHYROXINE SODIUM 112 MCG TABLET PO (06:05)
[2023-11-09 07:16] LABS: Basophils Percent Auto 0.4 % (0.2-1.2); Eosinophils Absolute Auto 0.1 K/mm3 (0-0.3); Eosinophils Percent Auto 0.6 % (0-4.4); Hematocrit 32.7 % (37.0-47.0); Hemoglobin 9.5 g/dL (12.0-15.0); Immature Granulocyte Absolute 0.09 K/mm3 (0.00-0.031); Immature Granulocyte Percent A 1.1 % (0-0.5); Lymphocytes Absolute Auto 1.08 K/mm3 (0.9-3.2); Mean Corpuscular HGB Conc 29.1 g/dl (32-36); Mean Corpuscular Hemoglobin 30.2 pg (26-34); Mean Corpuscular Volume 103.8 fl (80-100); Mean Platelet Volume 10.1 fl (7.4-10.4); Monocytes Absolute Auto 0.8 K/mm3 (0.1-0.6); Monocytes Percent Auto 9.3 % (2.6-8.5); Neutrophils Absolute Auto 6.3 K/mm3 (1.3-6.7); Neutrophils Percent Auto 75.6 % (45.5-73.1); Platelet Count Result 105 k/mm3 (150-375); Red Blood Count 3.15 M/mm3 (4.2-5.4); Red Cell Distribution Width 18.6 % (11.5-14.5); White Blood Count 8.3 K/mm3 (4.5-10.0)
[2023-11-09 07:29] LABS: Albumin Level 3.4 g/dL (3.5-5.1); Anion Gap 4 mmol/L (4-12); Blood Urea Nitrogen 29 mg/dL (7-17); Calcium 8.8 mg/dL (8.4-10.2); Carbon Dioxide 34 mmol/L (22-30); Chloride 98 mmol/L (98-107); Estimated Glomerular Filt Rate 8; Glucose 111 mg/dL (65-110); Phosphorus 3.8 mg/dL (2.5-4.5); Potassium 4.4 mmol/L (3.4-5.0); Sodium 136 mmol/L (137-145)
[2023-11-09 07:36] LABS: Glucose Point of Care 166 mg/dl (65-105)
[2023-11-09 07:38] LABS: NT Pro B Type Natriuretic Pept > 30000 pg/mL (19.9-100)
[2023-11-09 07:52] LABS: Anisocytosis 1+; Hypochromasia 1+; Platelet Estimate Decreased (Adequate); Schistocytes None Seen
[2023-11-09] MEDS: HEPARIN SODIUM 1,000 UNITS/ML VIAL 1250 UNITS IV PUSH (08:48)
[2023-11-09] MEDS: HEPARIN SODIUM 1,000 UNITS/ML VIAL 1000 UNITS IV PUSH ×3 (08:51→10:53)
--- NOTE | 2023-11-09 09:55 | PM.PNNEP ---
Progress Note: A&P Assessment and Plan (1) End stage renal disease: Code(s): N18.6 - End stage renal disease Status: Chronic Assessment and Plan: HD today continue T/T/S dialysis schedule while hospitalized follow electrolytes, volume status, and clearance (2) Acute respiratory failure with hypoxia: Code(s): J96.01 - Acute respiratory failure with hypoxia Status: Acute Assessment and Plan: multiple hospitalizations/admissions for pneumonia in the last month noted hypoxia and hypercapnia on presentation CXR results noted suspect a combination of pneumonia + volume overload fluid removal with dialysis as tolerated by hemodynamics supplemental oxygen and nebulizer treatments wean oxygen as tolerated (3) Pneumonia: Qualifiers: Laterality: bilateral Lung location: unspecified part of lung Pneumonia type: due to unspecified organism Qualified Code(s): J18.9 - Pneumonia, unspecified organism Code(s): J18.9 - Pneumonia, unspecified organism Status: Acute Assessment and Plan: as suggested by admission symptoms (SOB + productive cough + hypoxia) CXR results noted on IV antibiotics follow cultures monitor respiratory status (4) Anemia: Code(s): D64.9 - Anemia, unspecified Status: Chronic Assessment and Plan: due to ESRD and likely worsened by acute infection Epogen with HD follow trend of H/H (5) Hypertension: Code(s): I10 - Essential (primary) hypertension Status: Chronic Assessment and Plan: BP doing better today hopefully this will allow for better fluid removal with HD follow trend of hemodynamics (6) Type 2 diabetes mellitus with diabetic polyneuropathy: Qualifiers: Diabetes mellitus [facility] insulin use: without [facility] use Qualified Code(s): E11.42 - Type 2 diabetes mellitus with diabetic polyneuropathy Code(s): E11.42 - Type 2 diabetes mellitus with diabetic polyneuropathy Status: Acute Assessment and Plan: follow accu-cheks glycemic control per hospitalists Will continue to follow. Subjective Date/time seen: 11/09/23 09:55 Interval history: Follow-up for end stage renal disease on hemodialysis. Tolerating dialysis treatment at the time of my visit (seen on HD at 9:45AM); remains on supplemental oxygen [and attempts at weaning have been unsuccessful as significant hypoxia noted (down to 70% when oxygen decreased this AM)]; however, no apparent distress noted; no issues/events overnight or earlier this morning. Exam Narrative: General: elderly female in NAD Heart: normal S1 and S2; no rub Lungs: coarse breath sounds; decreased at bases Abdomen: soft, nontender, nondistended, positive bowel sounds Extremities: no cyanosis or clubbing; reyna - 1+ edema (chronic) Skin: warm and intact Objective Data Vital Signs Vital Signs: Vital Signs Temp Pulse Resp BP Pulse Ox O2 Del Method O2 Flow Rate 11/09/23 09:45 89 122/64 11/09/23 09:30 91 125/67 11/09/23 09:15 89 131/68 11/09/23 09:00 93 152/74 H 11/09/23 08:51 90 138/73 11/09/23 08:51 1 11/09/23 08:34 97.7 F 97 20 166/81 H 99 11/09/23 07:40 88 18 11/09/23 07:33 94 Nasal Cannula 3 11/09/23 07:33 93 18 11/09/23 02:14 86 18 11/09/23 05:11 97.9 F 87 20 168/64 H 98 11/09/23 04:00 93 11/09/23 00:00 88 11/08/23 20:00 88 11/09/23 02:04 84 18 11/08/23 19:58 93 18 11/08/23 20:00 94 Nasal Cannula 1 11/08/23 21:00 97.3 F L 91 18 121/61 94 11/08/23 19:48 90 18 11/08/23 19:48 99 Nasal Cannula 1 11/08/23 16:03 85 11/08/23 14:00 98.3 F 67 18 98/52 L 98 Intake/Output Intake/Output: Intake & Output 11/06/23 11/07/23 11/08/23 11/09/23 23:59 23:59 23:59 23:59 Intake Total 630 980 150
--- NOTE | 2023-11-09 09:55 | P.PNNP_ITS ---
Progress Note: A&P Assessment and Plan (1) End stage renal disease: Code(s): N18.6 - End stage renal disease Status: Chronic Assessment and Plan: * HD today * continue T/T/S dialysis schedule while hospitalized * follow electrolytes, volume status, and clearance (2) Acute respiratory failure with hypoxia: Code(s): J96.01 - Acute respiratory failure with hypoxia Status: Acute Assessment and Plan: * multiple hospitalizations/admissions for pneumonia in the last month * noted hypoxia and hypercapnia on presentation * CXR results noted * suspect a combination of pneumonia + volume overload * fluid removal with dialysis as tolerated by hemodynamics * supplemental oxygen and nebulizer treatments * wean oxygen as tolerated (3) Pneumonia: Qualifiers: Laterality: bilateral Lung location: unspecified part of lung Pneumonia type: due to unspecified organism Qualified Code(s): J18.9 - P neumonia, unspecified organism Code(s): J18.9 - Pneumonia, unspecified organism Status: Acute Assessment and Plan: * as suggested by admission symptoms (SOB + productive cough + hypoxia) * CXR results noted * on IV antibiotics * follow cultures * monitor respiratory status (4) Anemia: Code(s): D64.9 - Anemia, unspecified Status: Chronic Assessment and Plan: * due to ESRD and likely worsened by acute infection * Epogen with HD * follow trend of H/H (5) Hypertension: Code(s): I10 - Essential (primary) hypertension Status: Chronic Assessment and Plan: * BP doing better today * hopefully this will allow for better fluid removal with HD * follow trend of hemodynamics (6) Type 2 diabetes mellitus with diabetic polyneuropathy: Qualifiers: Diabetes mellitus mcc insulin use: without cyber systems operations specialist use Qualified Code(s): E11.42 - Type 2 diabetes mellitus with diabetic polyneuropathy Code(s): E11.42 - Type 2 diabetes mellitus with diabetic polyneuropathy Status: Acute Assessment and Plan: * follow accu-cheks * glycemic control per hospitalists Will continue to follow. Subjective Date/time seen: 11/09/23 09:55 Interval history: Follow-up for end stage renal disease on hemodialysis. Tolerating dialysis treatment at the time of my visit (seen on HD at 9:45AM); remains on supplemental oxygen [and attempts at weaning have been unsuccessful as significant hypoxia noted (down to 70% when oxygen decreased this AM)]; however, no apparent distress noted; no issues/events overnight or earlier this morning. Exam Narrative: General: elderly female in NAD Heart: normal S1 and S2; no rub Lungs: coarse breath sounds; decreased at bases Abdomen: soft, nontender, nondistended, positive bowel sounds Extremities: no cyanosis or clubbing; reyna - 1+ edema (chronic) Skin: warm and intact Objective Data Vital Signs Vital Signs: Vital Signs Temp Pulse Resp BP Pulse Ox O2 Del Method O2 Flow Rate 11/09/23 09:45 89 122/64 11/09/23 09:30 91 125/67 11/09/23 09:15 89 131/68 11/09/23 09:00 93 152/74 H 11/09/23 08:51 90 138/73 11/09/23 08:51 1 11/09/23 08:34 97.7 F 97 20 166/81 H 99 11/09/23 07:40 88 18 11/09/23 07:33 94 Nasal Cannula 3
--- NOTE | 2023-11-09 10:21 | PM.CNCAR ---
Assessment and Plan Assessment and plan (1) Acute respiratory failure with hypoxia and hypercapnia: Code(s): J96.01 - Acute respiratory failure with hypoxia; J96.02 - Acute respiratory failure with hypercapnia Status: Acute (2) Hospital-acquired pneumonia: Code(s): J18.9 - Pneumonia, unspecified organism; Y95 - Nosocomial condition Status: Acute (3) ESRD (end stage renal disease) on dialysis: Code(s): N18.6 - End stage renal disease; Z99.2 - Dependence on renal dialysis Status: Acute (4) Hypertension: Code(s): I10 - Essential (primary) hypertension Status: Chronic (5) Type 2 diabetes mellitus with diabetic chronic kidney disease: Code(s): E11.22 - Type 2 diabetes mellitus with diabetic chronic kidney disease Status: Acute Plan Cardiology consulted for pericardial effusion, volume overload. Her pericardial effusion is small, and no evidence of echocardiographic or clinical tamponade. The pericardial effusion does not need intervention. Improvement in her volume state should improve the effusion. Patient does have pulmonary edema, pleural effusions. However, since she is a dialysis patient, will defer to Nephrology for volume removal. Fluid removal through dialysis has been limited due to lower blood pressures -- agree with holding her Losartan, can consider Midodrine for blood pressure support if needed in order to do more aggressive fluid removal via dialysis. Cardiology will sign off at this time. History of Present Illness History of Present Illness Consult date/time: 11/09/23 10:21 Requesting physician: Katie Ma MD Consult reason: Other (Pericardial effusion ) Reason For Visit: Acute Respiratory Failure with Hypoxia/Pneumonia Narrative: We are consulted for pericardial effusion. This is an 78 year old female with ESRD on HD, hypertension, diabetes mellitus, hypothyroidism who was admitted on 11/05 for acute hypoxic and hypercapnic respiratory failure, hospital-acquired pneumonia. Echocardiogram done 11/06 shows LVEF 55-60%, grade 1 diastolic dysfunction, moderate , mild MR, mild TR, small pericardial effusion. Chest imaging shows pleural effusions, pulmonary edema as well. Patient's only complaint today is cough. Review of Systems Review of Systems: All systems reviewed & are unremarkable except as noted in HPI and below (HPI) [facility] Past Medical History Medical History Arthritis Chronic kidney disease Depression Diabetes Gout Hypertension Hypothyroidism Nephrolithiasis Pneumonia Primary localized osteoarthritis of knees, bilateral Surgical History Surgical History H/O inguinal hernia repair Hx of tonsillectomy Family History Family History Other Diabetes mellitus Heart disease Hypertension Social History Social History Social History: Patient lives with her daughter, grandson daughter's kids and her daughter daughters kids. Patient's did of diabetes in 1985. Patient wishes to be a full code does like her daughter to be her surrogate. She also does have 3 dogs and 2 cats that live with her as well. 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
[2023-11-09] MEDS: EPOETIN ALFA-EPBX 10,000 UNITS/ML VIAL 10000 UNITS IV PUSH (11:11)
[2023-11-09 11:15] LABS: Glucose Point of Care 94 mg/dl (65-105)
--- NOTE | 2023-11-09 12:46 | PM.IMPN ---
Progress Note: A&P Assessment and Plan (1) Acute respiratory failure with hypoxia and hypercapnia: Code(s): J96.01 - Acute respiratory failure with hypoxia; J96.02 - Acute respiratory failure with hypercapnia Status: Acute Assessment and Plan: combination pulmonary edema per imaging (2) ESRD (end stage renal disease) on dialysis: Code(s): N18.6 - End stage renal disease; Z99.2 - Dependence on renal dialysis Status: Acute Assessment and Plan: Monday, blood pressure low past few days limiting amount of fluid able to be removed during dialysis (3) Leukocytosis: Code(s): D72.829 - Elevated white blood cell count, unspecified Status: Acute Assessment and Plan: likely due to stress of illness (4) Hospital-acquired pneumonia: Code(s): J18.9 - Pneumonia, unspecified organism; Y95 - Nosocomial condition Status: Acute Assessment and Plan: 11/08: persistent pneumonia, continue cefepime and azithromycin, MRSA nares negative Plan 78-year-old female with PMH ESRD TTHUSU via LUE AV fistula, depression, hcg-vqytbye-qugfofpde diabetes mellitus, hypertension, hypothyroidism, presenting with shortness of breath along with cough with sputum production. She was hospitalized for pneumonia and discharged on 10/08/2023 on Augmentin and azithromycin. She again presented on 10/11 and discharged on 10/14. Discharged on doxycycline 100 mg p.o. b.i.d. she visited outpatient medicine for worsening productive cough and shortness of breath. She was again prescribed doxycycline for another 2 weeks. Her last dialysis was yesterday on Monday and only 1.2 L was taken off. Due to the symptoms not resolving she presents to [place] ER again today on 11/06/2023. ER evaluation demonstrates a WBC count 10,300, ABG 7.3/57/67/30. BNP greater than 30,000 Saturating 80% on room air. Placed on 2 L nasal cannula. Chest x-ray demonstrating cardiomegaly with prominent hilar and bibasilar opacifications suggestive of atelectasis versus pneumonia. She received DuoNeb, cefepime and vancomycin, reports improvement in symptoms. Admitted on 11/06/2023 for further workup of acute hypoxic respiratory failure. Cxr ordered rpt BNP and BMP Cardiology for pericardial effusion unable to give lasix today low BP # acute hypoxic and hypercapnic respiratory failure # hospital-acquired pneumonia -status: Multiple recent admissions for pneumonia. Shortness of breath has not improved, presents with increased cough productive of white sputum. Found to have hypercapnia and hypoxia on admission. Chest x-ray demonstrating bibasilar opacifications. Lung auscultation demonstrates diffuse crackles. BNP greater than 30,000 -currently on 3 L nasal cannula, wean as tolerated to keep SpO2 greater than 92%. -check surface echocardiogram, BNP elevated. -nephrology notified. Patient will need dialysis for volume removal. -pCO2 57 on admission. Continue scheduled bronchodilators. ApneaLink done on 3 L oxygen which was Reviewed -blood cultures and sputum culture pending. Cefepime and vancomycin started on admission 11/06/2023 for hospital-acquired pneumonia MRSA nares negative. Will stop vancomycin. Add atypical coverage with azithromycin With recurrent pneumonia will also need to get swallow evaluation and may need MBS will get CT chest to further evaluate prominent hilum noted on chest x-ray Which has been a persistent finding in all recent x-rays echo 11/07/2019 EF 55-60% moderate concentric left ventricular wall thickness grade 1 diastolic dysfunction moderate aortic valve stenosis RVSP 37 mm Hg which is normal # leukocytosis wcc is better # transaminitis -status: Mild, chronic. -continue to monitor # ESRD on HD TTHSA -status: Chronic -appears volume overloaded. Nephrology consulted # xtc-fnmhauu-sqyqsyjdh diabetes mellitus -status: Last A1c 4.6% on 09/02/2022, recheck at 5.2 # depression: C
[2023-11-09] MEDS: CHOLECALCIFEROL 1,000 UNITS TABLET 2000 UNITS PO (13:25)
[2023-11-09] MEDS: FUROSEMIDE INJ 40 MG/4 ML VIAL 20 MG IV PUSH (13:25)
[2023-11-09] MEDS: ATORVASTATIN 40 MG TABLET PO (13:25)
[2023-11-09] MEDS: AZITHROMYCIN 250 MG TABLET 500 MG PO (13:25)
[2023-11-09] MEDS: VITAMIN E 400 UNIT CAPSULE PO (13:25)
[2023-11-09] MEDS: ENOXAPARIN 30 MG/0.3 ML SYRINGE SUB-Q (13:31)
[2023-11-09 16:21] LABS: Glucose Point of Care 146 mg/dl (65-105)
[2023-11-09] MEDS: SERTRALINE HCL 50 MG TABLET PO (20:01)
[2023-11-09] MEDS: CEFEPIME 1 GM/NS 50 ML 1 GM/50 ML BAG IVPB (20:01)
[2023-11-09] MEDS: MELATONIN 3 MG TABLET PO (20:01)
[2023-11-09] MEDS: MIRTAZAPINE 15 MG TABLET PO (20:01)
[2023-11-09] MEDS: DOCUSATE SODIUM 100 MG CAPSULE PO (20:01)
[2023-11-09 20:04] LABS: Glucose Point of Care 182 mg/dl (65-105)
[2023-11-10] VITALS (16 sets, daily range): BP systolic 149–160; BP diastolic 65–81; PULSE 93–102; RESP 16–22; TEMP 36.2–36.9; O2SAT 98–100
[2023-11-10] MEDS: IPRATROPIUM 0.5 MG/ALBUTEROL SULFATE 2.5 MG AMPUL.NEB 3 ML INHALATION ×4 (01:44→21:11)
[2023-11-10] MEDS: LEVOTHYROXINE SODIUM 112 MCG TABLET PO (05:57)
--- NOTE | 2023-11-10 06:22 | PC.NURSE ---
I have review the charting of Tiara SERRANO, and am in agreement with the findings. We will continue to monitor and review for changes.
[2023-11-10] MEDS: CHOLECALCIFEROL 1,000 UNITS TABLET 2000 UNITS PO (09:05)
[2023-11-10] MEDS: DOCUSATE SODIUM 100 MG CAPSULE PO ×2 (09:05→20:28)
[2023-11-10] MEDS: AZITHROMYCIN 250 MG TABLET 500 MG PO (09:05)
[2023-11-10] MEDS: FUROSEMIDE INJ 40 MG/4 ML VIAL 20 MG IV PUSH (09:05)
[2023-11-10] MEDS: VITAMIN E 400 UNIT CAPSULE PO (09:05)
[2023-11-10] MEDS: ATORVASTATIN 40 MG TABLET PO (09:05)
--- NOTE | 2023-11-10 10:23 | PM.PNNEP ---
Progress Note: A&P Assessment and Plan (1) End stage renal disease: Code(s): N18.6 - End stage renal disease Status: Chronic Assessment and Plan: HD tomorrow continue T/T/S dialysis schedule while hospitalized follow electrolytes, volume status, and clearance push fluid removal as tolerated given findings to date (2) Acute respiratory failure with hypoxia: Code(s): J96.01 - Acute respiratory failure with hypoxia Status: Acute Assessment and Plan: multiple hospitalizations/admissions for pneumonia in the last month noted hypoxia and hypercapnia on presentation CXR results noted suspect a combination of pneumonia + volume overload fluid removal with dialysis as tolerated by hemodynamics continue supplemental oxygen and nebulizer treatments wean oxygen as tolerated (3) Pneumonia: Qualifiers: Laterality: bilateral Lung location: unspecified part of lung Pneumonia type: due to unspecified organism Qualified Code(s): J18.9 - Pneumonia, unspecified organism Code(s): J18.9 - Pneumonia, unspecified organism Status: Acute Assessment and Plan: as suggested by admission symptoms (SOB + productive cough + hypoxia) CXR results noted on IV antibiotics follow cultures monitor respiratory status (4) Anemia: Code(s): D64.9 - Anemia, unspecified Status: Chronic Assessment and Plan: due to ESRD and likely worsened by acute infection Epogen with HD follow trend of H/H (5) Hypertension: Code(s): I10 - Essential (primary) hypertension Status: Chronic Assessment and Plan: BP doing better hopefully this will allow for better fluid removal with HD treatments follow trend of hemodynamics (6) Type 2 diabetes mellitus with diabetic polyneuropathy: Qualifiers: Diabetes mellitus longterm insulin use: without terminal carman use Qualified Code(s): E11.42 - Type 2 diabetes mellitus with diabetic polyneuropathy Code(s): E11.42 - Type 2 diabetes mellitus with diabetic polyneuropathy Status: Acute Assessment and Plan: follow accu-cheks glycemic control per hospitalists Will continue to follow. Subjective Date/time seen: 11/10/23 10:23 Interval history: Follow-up for end stage renal disease on hemodialysis. Tolerated dialysis treatment yesterday without any issue or problems -- due to better hemodynamics, able to achieve 3L fluid removal/ultrafiltration; seen by Cardiology yesterday given concerns of pericardial effusion; breathing/respiratory status seems stable but still requiring supplemental oxygen and with productive cough at this time. Exam Narrative: General: elderly female in NAD Heart: normal S1 and S2; no rub Lungs: coarse breath sounds; decreased at bases Abdomen: soft, nontender, nondistended, positive bowel sounds Extremities: no cyanosis or clubbing; reyna - 1+ edema (chronic) Skin: no rash Objective Data Vital Signs Vital Signs: Vital Signs Temp Pulse Resp BP Pulse Ox O2 Del Method O2 Flow Rate 11/10/23 09:25 Nasal Cannula 2 11/10/23 09:00 96 11/10/23 07:45 96 20 11/10/23 07:32 100 22 H 11/10/23 07:32 98 Nasal Cannula 1 11/10/23 05:51 97.1 F L 99 20 160/81 H 98 11/10/23 04:00 93 11/10/23 01:53 98 19 11/10/23 01:46 97 20 11/10/23 00:00 93 11/09/23 20:00 95 Nasal Cannula 1 11/09/23 20:00 97.0 F L 94 20 135/61 100 11/09/23 20:23 100 20 11/09/23 20:18 95 Nasal Cannula 1 11/09/23 20:17 99 Nasal Cannula 3 11/09/23 20:14 92 20 Intake/Output Intake/Output: Intake & Output 11/07/23 11/08/23 11/09/23 11/10/23 23:59 23:59 23:59 23:59 Intake Total 630 980 980 218 Output Total 241 3001 Balance 389 980 -2021 218 Meds/Results Medications: Active Medications Generic Name Dose Route Start Last
--- NOTE | 2023-11-10 10:23 | P.PNNP_ITS ---
Progress Note: A&P Assessment and Plan (1) End stage renal disease: Code(s): N18.6 - End stage renal disease Status: Chronic Assessment and Plan: * HD tomorrow * continue T/T/S dialysis schedule while hospitalized * follow electrolytes, volume status, and clearance * push fluid removal as tolerated given findings to date (2) Acute respiratory failure with hypoxia: Code(s): J96.01 - Acute respiratory failure with hypoxia Status: Acute Assessment and Plan: * multiple hospitalizations/admissions for pneumonia in the last month * noted hypoxia and hypercapnia on presentation * CXR results noted * suspect a combination of pneumonia + volume overload * fluid removal with dialysis as tolerated by hemodynamics * continue supplemental oxygen and nebulizer treatments * wean oxygen as tolerated (3) Pneumonia: Qualifiers: Laterality: bilateral Lung location: unspecified part of lung Pneumonia type: due to unspecified organism Qualified Code(s): J18.9 - Pneumonia, unspecified organism Code(s): J18.9 - Pneumonia, unspecified organism Status: Acute Assessment and Plan: * as suggested by admission symptoms (SOB + productive cough + hypoxia) * CXR results noted * on IV antibiotics * follow cultures * monitor respiratory status (4) Anemia: Code(s): D64.9 - Anemia, unspecified Status: Chronic Assessment and Plan: * due to ESRD and likely worsened by acute infection * Epogen with HD * follow trend of H/H (5) Hypertension: Code(s): I10 - Essential (primary) hypertension Status: Chronic Assessment and Plan: * BP doing better * hopefully this will allow for better fluid removal with HD treatments * follow trend of hemodynamics (6) Type 2 diabetes mellitus with diabetic polyneuropathy: Qualifiers: Diabetes mellitus buttermaker helper insulin use: without buttermaker helper use Qualified Code(s): E11.42 - Type 2 diabetes mellitus with diabetic polyneuropathy Code(s): E11.42 - Type 2 diabetes mellitus with diabetic polyneuropathy Status: Acute Assessment and Plan: * follow accu-cheks * glycemic control per hospitalists Will continue to follow. Subjective Date/time seen: 11/10/23 10:23 Interval history: Follow-up for end stage renal disease on hemodialysis. Tolerated dialysis treatment yesterday without any issue or problems -- due to better hemodynamics, able to achieve 3L fluid removal/ultrafiltration; seen by Cardiology yesterday given concerns of pericardial effusion; breathing/respiratory status seems stable but still requiring supplemental oxygen and with productive cough at this time. Exam Narrative: General: elderly female in NAD Heart: normal S1 and S2; no rub Lungs: coarse breath sounds; decreased at bases Abdomen: soft, nontender, nondistended, positive bowel sounds Extremities: no cyanosis or clubbing; reyna - 1+ edema (chronic) Skin: no rash Objective Data Vital Signs Vital Signs: Vital Signs Temp Pulse Resp BP Pulse Ox O2 Del Method O2 Flow Rate 11/10/23 09:25 Nasal Cannula 2 11/10/23 09:00 96 11/10/23 07:45 96 20 11/10/23 07:32 100 22 H 11/10/23 07:32 98 Nasal Cannula 1 11/10/23 05:51 97.1 F L 99 20 160/81 H 98 11/10/23 04:00 93
[2023-11-10 11:32] LABS: Glucose Point of Care 153 mg/dl (65-105)
--- NOTE | 2023-11-10 11:39 | PM.IMPN ---
Progress Note: A&P Assessment and Plan (1) Acute respiratory failure with hypoxia and hypercapnia: Code(s): J96.01 - Acute respiratory failure with hypoxia; J96.02 - Acute respiratory failure with hypercapnia Status: Acute Assessment and Plan: combination pulmonary edema, possible pneumonia per imaging (2) ESRD (end stage renal disease) on dialysis: Code(s): N18.6 - End stage renal disease; Z99.2 - Dependence on renal dialysis Status: Acute Assessment and Plan: Monday, blood pressure low past few days limiting amount of fluid able to be removed during dialysis 11/09: 3 liters removed with dialysis yesterday and improved blood pressure present. Dialysis again tomorrow (3) Leukocytosis: Code(s): D72.829 - Elevated white blood cell count, unspecified Status: Acute Assessment and Plan: likely due to stress of illness (4) Hospital-acquired pneumonia: Code(s): J18.9 - Pneumonia, unspecified organism; Y95 - Nosocomial condition Status: Acute Assessment and Plan: 11/08: persistent pneumonia, continue cefepime and azithromycin, MRSA nares negative Plan # acute hypoxic and hypercapnic respiratory failure # hospital-acquired pneumonia -status: Multiple recent admissions for pneumonia. Shortness of breath has not improved, presents with increased cough productive of white sputum. Found to have hypercapnia and hypoxia on admission. Chest x-ray demonstrating bibasilar opacifications. Lung auscultation demonstrates diffuse crackles. BNP greater than 30,000 -currently on 3 L nasal cannula, wean as tolerated to keep SpO2 greater than 92%. -check surface echocardiogram, BNP elevated. -nephrology notified. Patient will need dialysis for volume removal. -pCO2 57 on admission. Continue scheduled bronchodilators. ApneaLink done on 3 L oxygen which was Reviewed -blood cultures and sputum culture pending. Cefepime and vancomycin started on admission 11/06/2023 for hospital-acquired pneumonia MRSA nares negative. Will stop vancomycin. Add atypical coverage with azithromycin With recurrent pneumonia will also need to get swallow evaluation and may need [facility] [place] get CT chest to further evaluate prominent hilum noted on chest x-ray Which has been a persistent finding in all recent x-rays echo 11/07/2019 EF 55-60% moderate concentric left ventricular wall thickness grade 1 diastolic dysfunction moderate aortic valve stenosis RVSP 37 mm Hg which is normal # leukocytosis wcc is better # transaminitis -status: Mild, chronic. -continue to monitor # ESRD on HD TTHSA -status: Chronic -appears volume overloaded. 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 q.h.s., sertraline 50 mg p.o. q.h.s. 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 Time Spent With Patient Time with patient: 25 - 35 minutes Subjective Date/time seen: 11/10/23 11:39 Interval history: Patient still requiring 1 liter/minute oxygen. 3 liters fluid removed yesterday with dialysis. Will have dialysis again tomorrow. No new or worsening concerns today. Review of Systems Review of Systems: All systems reviewed & are unremarkable except as noted in HPI and below (Subjective) Exam Narrative: GENERAL: Elderly EYES: EOMI. ENT: Nares clear, no rhinorrhea or epistaxis. NECK: Supple. No adenopathy or masses. CHEST: No respiratory distress. Coa
[2023-11-10] MEDS: CEFEPIME 1 GM/NS 50 ML 1 GM/50 ML BAG IVPB (16:37)
[2023-11-10 16:41] LABS: Glucose Point of Care 190 mg/dl (65-105)
[2023-11-10] MEDS: SERTRALINE HCL 50 MG TABLET PO (20:28)
[2023-11-10] MEDS: MIRTAZAPINE 15 MG TABLET PO (20:28)
[2023-11-10] MEDS: MELATONIN 3 MG TABLET PO (20:28)
[2023-11-10 21:30] LABS: Glucose Point of Care 118 mg/dl (65-105)
[2023-11-11] VITALS (29 sets, daily range): BP systolic 110–189; BP diastolic 50–92; PULSE 64–104; RESP 15–20; TEMP 34.7–37; O2SAT 99–100
[2023-11-11] MEDS: IPRATROPIUM 0.5 MG/ALBUTEROL SULFATE 2.5 MG AMPUL.NEB 3 ML INHALATION ×4 (01:37→20:47)
[2023-11-11 05:53] LABS: Basophils Percent Auto 0.6 % (0.2-1.2); Eosinophils Absolute Auto 0.1 K/mm3 (0-0.3); Eosinophils Percent Auto 1.1 % (0-4.4); Hemoglobin 9.5 g/dL (12.0-15.0); Immature Granulocyte Absolute 0.06 K/mm3 (0.00-0.031); Immature Granulocyte Percent A 0.8 % (0-0.5); Immature Platelet Fraction Pct 2.8 % (0.9-11.2); Lymphocytes Absolute Auto 0.99 K/mm3 (0.9-3.2); Mean Corpuscular HGB Conc 30.6 g/dl (32-36); Mean Corpuscular Hemoglobin 31.1 pg (26-34); Mean Corpuscular Volume 101.6 fl (80-100); Mean Platelet Volume 10.1 fl (7.4-10.4); Monocytes Absolute Auto 0.6 K/mm3 (0.1-0.6); Monocytes Percent Auto 8.8 % (2.6-8.5); Neutrophils Absolute Auto 5.3 K/mm3 (1.3-6.7); Neutrophils Percent Auto 74.7 % (45.5-73.1); Platelet Count Result 84 k/mm3 (150-375); Red Blood Count 3.05 M/mm3 (4.2-5.4); Red Cell Distribution Width 19.1 % (11.5-14.5); White Blood Count 7.1 K/mm3 (4.5-10.0)
[2023-11-11 06:06] LABS: Anion Gap 3 mmol/L (4-12); Blood Urea Nitrogen 31 mg/dL (7-17); Calcium 8.6 mg/dL (8.4-10.2); Carbon Dioxide 28 mmol/L (22-30); Chloride 102 mmol/L (98-107); Estimated Glomerular Filt Rate 8; Glucose 102 mg/dL (65-110); Magnesium 2.3 mg/dL (1.6-2.3); Phosphorus 4.1 mg/dL (2.5-4.5); Sodium 133 mmol/L (137-145)
[2023-11-11] MEDS: LEVOTHYROXINE SODIUM 112 MCG TABLET PO (06:10)
[2023-11-11 06:41] LABS: Platelet Estimate Decreased (Adequate)
[2023-11-11 06:42] LABS: Schistocytes None Seen
[2023-11-11 08:13] LABS: Glucose Point of Care 138 mg/dl (65-105)
[2023-11-11] MEDS: EPOETIN ALFA-EPBX 10,000 UNITS/ML VIAL 10000 UNITS IV PUSH (09:27)
[2023-11-11] MEDS: HEPARIN SODIUM 1,000 UNITS/ML VIAL 5000 UNITS (09:28)
[2023-11-11] MEDS: SODIUM CHLORIDE 0.9% IV 1,000 ML 999 ML IV CONT (09:29)
[2023-11-11] MEDS: AZITHROMYCIN 250 MG TABLET 500 MG PO (13:03)
[2023-11-11] MEDS: CHOLECALCIFEROL 1,000 UNITS TABLET 2000 UNITS PO (13:03)
[2023-11-11] MEDS: ATORVASTATIN 40 MG TABLET PO (13:03)
[2023-11-11] MEDS: VITAMIN E 400 UNIT CAPSULE PO (13:04)
[2023-11-11] MEDS: DOCUSATE SODIUM 100 MG CAPSULE PO ×2 (13:04→21:06)
--- NOTE | 2023-11-11 13:36 | P.PNNP_ITS ---
Progress Note: A&P Assessment and Plan (1) End stage renal disease: Code(s): N18.6 - End stage renal disease Status: Chronic Assessment and Plan: * HD just finished. * continue T/T/S dialysis schedule while hospitalized * follow electrolytes, volume status, and clearance * Removing fluid as much as possible per blood pressure. (2) Acute respiratory failure with hypoxia: Code(s): J96.01 - Acute respiratory failure with hypoxia Status: Acute Assessment and Plan: * multiple hospitalizations/admissions for pneumonia in the last month * noted hypoxia and hypercapnia on presentation * CXR Shows volume overload. * Probably pneumonia plus volume overload. He is not eating. Dry weight was reduced at [facility] however apparently not enough * On Zithromax and cefepime. * fluid removal with dialysis as tolerated by hemodynamics * continue supplemental oxygen and nebulizer treatments (3) Pneumonia: Qualifiers: Laterality: bilateral Lung location: unspecified part of lung Pneumonia type: due to unspecified organism Qualified Code(s): J18.9 - Pneumonia, unspecified organism Code(s): J18.9 - Pneumonia, unspecified organism Status: Acute Assessment and Plan: * as suggested by admission symptoms (SOB + productive cough + hypoxia) * CXR results noted * on cefepime plus Zithromax * follow cultures * monitor respiratory status (4) Anemia: Code(s): D64.9 - Anemia, unspecified Status: Chronic Assessment and Plan: * due to ESRD and likely worsened by acute infection * Epogen with HD * getting Epogen (5) Hypertension: Code(s): I10 - Essential (primary) hypertension Status: Chronic Assessment and Plan: * blood pressure doing well right now. (6) Type 2 diabetes mellitus with diabetic polyneuropathy: Qualifiers: Diabetes mellitus meeting planner insulin use: without senior care use Qualified Code(s): E11.42 - Type 2 diabetes mellitus with diabetic polyneuropathy Code(s): E11.42 - Type 2 diabetes mellitus with diabetic polyneuropathy Status: Acute Assessment and Plan: * follow accu-cheks * glycemic control per hospitalists Will continue to follow. Subjective Date/time seen: 11/11/23 13:36 Interval history: Leonid still weak. Not much of an appetite. Her daughter brought in some [employer] and she is eating some of that she just finished dialysis. Some fluid was removed. Exam Narrative: General: elderly female in NAD Heart: normal S1 and S2; no rub or gallop Lungs: coarse breath sounds; decreased at bases Abdomen: soft, nontender, nondistended, positive bowel sounds Extremities: no cyanosis or clubbing; tracxe - 1+ edema (chronic) Skin: no rash or subcu nodules Objective Data Vital Signs Vital Signs: Vital Signs - 24 hr 11/10/23 14:00 11/10/23 21:39 11/10/23 21:11 Temperature 98.5 F Pulse Rate 99 96 Respiratory Rate 20 20 Blood Pressure 149/65 H Pulse Oximetry 100 98 Oxygen Delivery Nasal Cannula Oxygen Flow Rate 1 Fraction of Inspired Oxygen 11/10/23 21:18 11/10/23 21:43 11/10/23 20:00 Temperature 97.6 F Pulse Rate 100 102 H Respiratory Rate 20 16 Blood Pressure 153/70 H Pulse Oximetry 98 98
--- NOTE | 2023-11-11 13:36 | PM.PNNEP ---
Progress Note: A&P Assessment and Plan (1) End stage renal disease: Code(s): N18.6 - End stage renal disease Status: Chronic Assessment and Plan: HD just finished. continue T/T/S dialysis schedule while hospitalized follow electrolytes, volume status, and clearance Removing fluid as much as possible per blood pressure. (2) Acute respiratory failure with hypoxia: Code(s): J96.01 - Acute respiratory failure with hypoxia Status: Acute Assessment and Plan: multiple hospitalizations/admissions for pneumonia in the last month noted hypoxia and hypercapnia on presentation CXR Shows volume overload. Probably pneumonia plus volume overload. He is not eating. Dry weight was reduced at [facility] however apparently not enough On Zithromax and cefepime. fluid removal with dialysis as tolerated by hemodynamics continue supplemental oxygen and nebulizer treatments (3) Pneumonia: Qualifiers: Laterality: bilateral Lung location: unspecified part of lung Pneumonia type: due to unspecified organism Qualified Code(s): J18.9 - Pneumonia, unspecified organism Code(s): J18.9 - Pneumonia, unspecified organism Status: Acute Assessment and Plan: as suggested by admission symptoms (SOB + productive cough + hypoxia) CXR results noted on cefepime plus Zithromax follow cultures monitor respiratory status (4) Anemia: Code(s): D64.9 - Anemia, unspecified Status: Chronic Assessment and Plan: due to ESRD and likely worsened by acute infection Epogen with HD getting Epogen (5) Hypertension: Code(s): I10 - Essential (primary) hypertension Status: Chronic Assessment and Plan: blood pressure doing well right now. (6) Type 2 diabetes mellitus with diabetic polyneuropathy: Qualifiers: Diabetes mellitus terminal gauger supervisor insulin use: without terminal gauger supervisor use Qualified Code(s): E11.42 - Type 2 diabetes mellitus with diabetic polyneuropathy Code(s): E11.42 - Type 2 diabetes mellitus with diabetic polyneuropathy Status: Acute Assessment and Plan: follow accu-cheks glycemic control per hospitalists Will continue to follow. Subjective Date/time seen: 11/11/23 13:36 Interval history: Leonid still weak. Not much of an appetite. Her daughter brought in some [employer] and she is eating some of that she just finished dialysis. Some fluid was removed. Exam Narrative: General: elderly female in NAD Heart: normal S1 and S2; no rub or gallop Lungs: coarse breath sounds; decreased at bases Abdomen: soft, nontender, nondistended, positive bowel sounds Extremities: no cyanosis or clubbing; tracxe - 1+ edema (chronic) Skin: no rash or subcu nodules Objective Data Vital Signs Vital Signs: Vital Signs - 24 hr 11/10/23 14:00 11/10/23 21:39 11/10/23 21:11 Temperature 98.5 F Pulse Rate 99 96 Respiratory Rate 20 20 Blood Pressure 149/65 H Pulse Oximetry 100 98 Oxygen Delivery Nasal Cannula Oxygen Flow Rate 1 Fraction of Inspired Oxygen 11/10/23 21:18 11/10/23 21:43 11/10/23 20:00 Temperature 97.6 F Pulse Rate 100 102 H Respiratory Rate 20 16 Blood Pressure 153/70 H Pulse Oximetry 98 98 Oxygen Delivery Nasal Cannula Oxygen Flow Rate 1 Fraction of Inspired Oxygen 11/11/23 01:37 11/11/23 01:47 11/11/23 06:00 Temperature 97.3 F L Pulse Rate 96 98 92 Respiratory Rate 20 20 15 Blood Pressure 110/54 L Pulse Oximetry 100 Oxygen Delivery Oxygen Flow Rate Fraction of Inspired Oxygen 11/11/23 06:55 11/11/23 07:05 11/11/23 08:26 Temperature Pulse Rate 94 96 Respiratory Rate 18 18 Blood Pressure Pulse Oximetry Oxygen Delivery Oxygen Flow Rate 2 Fraction of Inspired Oxygen 99 11/11/23 08:26 11/11/23 08:37 11/11/23 08:45 Temperature 97.7 F Pulse Rate 96 100 94 Respiratory Rate
--- NOTE | 2023-11-11 13:44 | PM.IMPN ---
Progress Note: A&P Assessment and Plan (1) Acute respiratory failure with hypoxia and hypercapnia: Code(s): J96.01 - Acute respiratory failure with hypoxia; J96.02 - Acute respiratory failure with hypercapnia Status: Acute Assessment and Plan: combination pulmonary edema, possible pneumonia per imaging 11/10: Sats 99-100% on 1 liter. Attempting room air to see how patient tolerates. (2) ESRD (end stage renal disease) on dialysis: Code(s): N18.6 - End stage renal disease; Z99.2 - Dependence on renal dialysis Status: Acute Assessment and Plan: Monday, blood pressure low past few days limiting amount of fluid able to be removed during dialysis 11/09: 3 liters removed with dialysis yesterday and improved blood pressure present. Dialysis again tomorrow 11/10: 4 liters fluid removed with dialysis today. Blood pressure 137/50. (3) Leukocytosis: Code(s): D72.829 - Elevated white blood cell count, unspecified Status: Acute Assessment and Plan: likely due to stress of illness (4) Hospital-acquired pneumonia: Code(s): J18.9 - Pneumonia, unspecified organism; Y95 - Nosocomial condition Status: Acute Assessment and Plan: 11/08: persistent pneumonia, continue cefepime and azithromycin, MRSA nares negative 11/10: Lost IV access, ordered Levaquin 750 mg oral x1, 250 mg oral on 7/8 AM, 500 mg after dialysis for 3 doses starting 11/13. Azithromycin course completed. Plan # acute hypoxic and hypercapnic respiratory failure # hospital-acquired pneumonia -status: Multiple recent admissions for pneumonia. Shortness of breath has not improved, presents with increased cough productive of white sputum. Found to have hypercapnia and hypoxia on admission. Chest x-ray demonstrating bibasilar opacifications. Lung auscultation demonstrates diffuse crackles. BNP greater than 30,000 -currently on 3 L nasal cannula, wean as tolerated to keep SpO2 greater than 92%. -check surface echocardiogram, BNP elevated. -nephrology notified. Patient will need dialysis for volume removal. -pCO2 57 on admission. Continue scheduled bronchodilators. ApneaLink done on 3 L oxygen which was Reviewed -blood cultures and sputum culture pending. Cefepime and vancomycin started on admission 11/06/2023 for hospital-acquired pneumonia MRSA nares negative. Will stop vancomycin. Add atypical coverage with azithromycin With recurrent pneumonia will also need to get swallow evaluation and may need [facility] will get CT chest to further evaluate prominent hilum noted on chest x-ray Which has been a persistent finding in all recent x-rays echo 11/07/2019 EF 55-60% moderate concentric left ventricular wall thickness grade 1 diastolic dysfunction moderate aortic valve stenosis RVSP 37 mm Hg which is normal # leukocytosis wcc is better # transaminitis -status: Mild, chronic. -continue to monitor # ESRD on HD TTHSA -status: Chronic -appears volume overloaded. Nephrology consulted # [id number] diabetes mellitus -status: Last A1c 4.6% on 09/02/2022, recheck at 5.2 # depression: Continue CRA mirtazapine 15 mg p.o. q.h.s., sertraline 50 mg p.o. q.h.s. # hypertension: Blood pressure acceptable, continue to monitor # hypothyroidism: Continue CRA levothyroxine 112 mcg daily Continue present care hopeful dc in 3-5 days anticipated Home oxygen assessment before discharge Family wants her to go home Cardiology signed off, Deferring to Nephrology to manage fluid balance with dialysis however recommending use of midodrine if necessary to raise blood pressure to help remove additional fluid with dialysis. Time Spent With Patient Time with patient: Greater than 35 minutes Subjective Date/time seen: 11/11/23 14:44 Interval history: Patient is still weak. Not much of an appetite. Patient had 4 liters removed during dialysis. Still receiving treatment for pneumonia and still req
[2023-11-11 16:11] LABS: Glucose Point of Care 138 mg/dl (65-105)
[2023-11-11] MEDS: CEFEPIME 1 GM/NS 50 ML 1 GM/50 ML BAG IVPB (16:29)
[2023-11-11] MEDS: levoFLOXacin 750 MG TABLET PO (17:56)
[2023-11-11] MEDS: MELATONIN 3 MG TABLET PO (21:06)
[2023-11-11] MEDS: SERTRALINE HCL 50 MG TABLET PO (21:06)
[2023-11-11] MEDS: MIRTAZAPINE 15 MG TABLET PO (21:07)
[2023-11-11 21:31] LABS: Glucose Point of Care 185 mg/dl (65-105)
[2023-11-12] VITALS (12 sets, daily range): BP systolic 135–156; BP diastolic 78–83; PULSE 82–107; RESP 16–20; TEMP 36.4–36.8; O2SAT 96–100
[2023-11-12] MEDS: IPRATROPIUM 0.5 MG/ALBUTEROL SULFATE 2.5 MG AMPUL.NEB 3 ML INHALATION ×4 (02:37→19:03)
[2023-11-12] MEDS: LEVOTHYROXINE SODIUM 112 MCG TABLET PO (05:51)
[2023-11-12 06:16] LABS: Basophils Percent Auto 0.5 % (0.2-1.2); Eosinophils Absolute Auto 0.1 K/mm3 (0-0.3); Eosinophils Percent Auto 0.7 % (0-4.4); Hematocrit 34.3 % (37.0-47.0); Hemoglobin 10.4 g/dL (12.0-15.0); Immature Granulocyte Absolute 0.06 K/mm3 (0.00-0.031); Immature Granulocyte Percent A 0.7 % (0-0.5); Immature Platelet Fraction Pct 3.4 % (0.9-11.2); Lymphocytes Absolute Auto 0.82 K/mm3 (0.9-3.2); Lymphocytes Percent Auto 10.1 % (18.3-44.2); Mean Corpuscular HGB Conc 30.3 g/dl (32-36); Mean Corpuscular Hemoglobin 30.8 pg (26-34); Mean Corpuscular Volume 101.5 fl (80-100); Mean Platelet Volume 10.3 fl (7.4-10.4); Monocytes Absolute Auto 0.7 K/mm3 (0.1-0.6); Neutrophils Absolute Auto 6.5 K/mm3 (1.3-6.7); Platelet Count Result 85 k/mm3 (150-375); Red Blood Count 3.38 M/mm3 (4.2-5.4); Red Cell Distribution Width 19.9 % (11.5-14.5); White Blood Count 8.1 K/mm3 (4.5-10.0)
[2023-11-12 06:31] LABS: Albumin Level 3.5 g/dL (3.5-5.1); Anion Gap 10 mmol/L (4-12); Blood Urea Nitrogen 22 mg/dL (7-17); Calcium 8.9 mg/dL (8.4-10.2); Carbon Dioxide 25 mmol/L (22-30); Chloride 100 mmol/L (98-107); Estimated Glomerular Filt Rate 11; Glucose 121 mg/dL (65-110); Sodium 135 mmol/L (137-145)
[2023-11-12 07:03] LABS: Anisocytosis 1+; Hypochromasia 1+; Platelet Estimate Decreased (Adequate); Schistocytes None Seen
[2023-11-12 07:53] LABS: Glucose Point of Care 172 mg/dl (65-105)
[2023-11-12 08:04] LABS: Alanine Aminotransferase 32 U/L (6-35); Albumin Level 3.5 g/dL (3.5-5.1); Alkaline Phosphatase 186 U/L (38-126); Aspartate Amino Transferase 41 U/L (14-36); Bilirubin,Total 0.7 mg/dL (0.2-1.3)
[2023-11-12] MEDS: CHOLECALCIFEROL 1,000 UNITS TABLET 2000 UNITS PO (09:13)
[2023-11-12] MEDS: ATORVASTATIN 40 MG TABLET PO (09:13)
[2023-11-12] MEDS: VITAMIN E 400 UNIT CAPSULE PO (09:13)
[2023-11-12] MEDS: DOCUSATE SODIUM 100 MG CAPSULE PO (09:13)
--- NOTE | 2023-11-12 09:34 | P.PNNP_ITS ---
Progress Note: A&P Assessment and Plan (1) End stage renal disease: Code(s): N18.6 - End stage renal disease Status: Chronic Assessment and Plan: * HD due on Monday. * The patient still has volume overload. * Will do an extra treatment tomorrow just to remove fluid. * Otherwise, continue T/T/S dialysis schedule while hospitalized * potassium okay today. * Removing fluid as much as possible per blood pressure. (2) Acute respiratory failure with hypoxia: Code(s): J96.01 - Acute respiratory failure with hypoxia Status: Acute Assessment and Plan: * multiple hospitalizations/admissions for pneumonia in the last month * noted hypoxia and hypercapnia on presentation * CXR Shows volume overload. * Probably pneumonia plus volume overload. He is not eating. Dry weight was reduced at [facility] however apparently not enough * Continue antibiotics. * Remove extra fluid tomorrow (3) Pneumonia: Qualifiers: Laterality: bilateral Lung location: unspecified part of lung Pneumonia type: due to unspecified organism Qualified Code(s): J18.9 - Pneumonia, unspecified organism Code(s): J18.9 - Pneumonia, unspecified organism Status: Acute Assessment and Plan: * as suggested by admission symptoms (SOB + productive cough + hypoxia) * CXR results noted * on cefepime plus Zithromax * still coughing (4) Anemia: Code(s): D64.9 - Anemia, unspecified Status: Chronic Assessment and Plan: * due to ESRD and likely worsened by acute infection * [facility] with HD on Monday (5) Hypertension: Code(s): I10 - Essential (primary) hypertension Status: Chronic Assessment and Plan: * blood pressure doing well right now. (6) Type 2 diabetes mellitus with diabetic polyneuropathy: Qualifiers: Diabetes mellitus extermination inspector insulin use: without extermination inspector use Qualified Code(s): E11.42 - Type 2 diabetes mellitus with diabetic polyneuropathy Code(s): E11.42 - Type 2 diabetes mellitus with diabetic polyneuropathy Status: Acute Assessment and Plan: * follow accu-cheks * glycemic control per hospitalists Subjective Date/time seen: 11/12/23 09:34 Interval history: patient still feels crummy. She ate a pancake but that is all she can eat. still coughing. Exam Narrative: General: elderly female in NAD Heart: normal S1 and S2; no rub or gallop Lungs: coarse breath sounds; Abdomen: soft, nontender, nondistended, positive bowel sounds Extremities: trace - 1+ Bilateral edema (chronic) Skin: no rash or subcu nodules Objective Data Vital Signs Vital Signs: Vital Signs - 24 hr 11/11/23 09:45 11/11/23 10:00 11/11/23 10:15 Temperature Pulse Rate 87 84 92 Respiratory Rate Blood Pressure 160/70 H 177/71 H 171/67 H Pulse Oximetry Oxygen Delivery 11/11/23 10:30 11/11/23 10:45 11/11/23 11:00 Temperature Pulse Rate 83 85 84 Respiratory Rate Blood Pressure 162/56 H 156/78 H 142/74 H Pulse Oximetry Oxygen Delivery 11/11/23 11:30 11/11/23 11:15 11/11/23 11:45 Temperature Pulse Rate 87 83 83 Respiratory Rate Blood Pressure
--- NOTE | 2023-11-12 09:34 | PM.PNNEP ---
Progress Note: A&P Assessment and Plan (1) End stage renal disease: Code(s): N18.6 - End stage renal disease Status: Chronic Assessment and Plan: HD due on Monday. The patient still has volume overload. Will do an extra treatment tomorrow just to remove fluid. Otherwise, continue T/T/S dialysis schedule while hospitalized potassium okay today. Removing fluid as much as possible per blood pressure. (2) Acute respiratory failure with hypoxia: Code(s): J96.01 - Acute respiratory failure with hypoxia Status: Acute Assessment and Plan: multiple hospitalizations/admissions for pneumonia in the last month noted hypoxia and hypercapnia on presentation CXR Shows volume overload. Probably pneumonia plus volume overload. He is not eating. Dry weight was reduced at [facility] however apparently not enough Continue antibiotics. Remove extra fluid tomorrow (3) Pneumonia: Qualifiers: Laterality: bilateral Lung location: unspecified part of lung Pneumonia type: due to unspecified organism Qualified Code(s): J18.9 - Pneumonia, unspecified organism Code(s): J18.9 - Pneumonia, unspecified organism Status: Acute Assessment and Plan: as suggested by admission symptoms (SOB + productive cough + hypoxia) CXR results noted on cefepime plus Zithromax still coughing (4) Anemia: Code(s): D64.9 - Anemia, unspecified Status: Chronic Assessment and Plan: due to ESRD and likely worsened by acute infection Epogen with HD on Monday (5) Hypertension: Code(s): I10 - Essential (primary) hypertension Status: Chronic Assessment and Plan: blood pressure doing well right now. (6) Type 2 diabetes mellitus with diabetic polyneuropathy: Qualifiers: Diabetes mellitus terminal operations supervisor insulin use: without long-term use Qualified Code(s): E11.42 - Type 2 diabetes mellitus with diabetic polyneuropathy Code(s): E11.42 - Type 2 diabetes mellitus with diabetic polyneuropathy Status: Acute Assessment and Plan: follow accu-cheks glycemic control per hospitalists Subjective Date/time seen: 11/12/23 09:34 Interval history: patient still feels crummy. She ate a pancake but that is all she can eat. still coughing. Exam Narrative: General: elderly female in NAD Heart: normal S1 and S2; no rub or gallop Lungs: coarse breath sounds; Abdomen: soft, nontender, nondistended, positive bowel sounds Extremities: trace - 1+ Bilateral edema (chronic) Skin: no rash or subcu nodules Objective Data Vital Signs Vital Signs: Vital Signs - 24 hr 11/11/23 09:45 11/11/23 10:00 11/11/23 10:15 Temperature Pulse Rate 87 84 92 Respiratory Rate Blood Pressure 160/70 H 177/71 H 171/67 H Pulse Oximetry Oxygen Delivery 11/11/23 10:30 11/11/23 10:45 11/11/23 11:00 Temperature Pulse Rate 83 85 84 Respiratory Rate Blood Pressure 162/56 H 156/78 H 142/74 H Pulse Oximetry Oxygen Delivery 11/11/23 11:30 11/11/23 11:15 11/11/23 11:45 Temperature Pulse Rate 87 83 83 Respiratory Rate Blood Pressure 139/72 145/73 H 156/67 H Pulse Oximetry Oxygen Delivery 11/11/23 13:00 11/11/23 13:10 11/11/23 12:00 Temperature Pulse Rate 96 98 82 Respiratory Rate 20 20 Blood Pressure 142/78 H Pulse Oximetry Oxygen Delivery 11/11/23 12:18 11/11/23 12:07 11/11/23 14:00 Temperature 94.4 F L 97.8 F Pulse Rate 88 84 100 Respiratory Rate 18 20 Blood Pressure 160/80 H 148/62 H 137/50 L Pulse Oximetry 99 100 Oxygen Delivery 11/11/23 20:48 11/11/23 20:58 11/11/23 20:00 Temperature Pulse Rate 92 94 Respiratory Rate 20 20 Blood Pressure Pulse Oximetry Oxygen Delivery Room Air 11/11/23 21:25 11/12/23 02:38 11/12/23 02:46 Temperature 98.6 F Pulse Rate 104 H 89 9
[2023-11-12 11:24] LABS: Glucose Point of Care 184 mg/dl (65-105)
--- NOTE | 2023-11-12 14:00 | PM.IMPN ---
Progress Note: A&P Assessment and Plan (1) Acute respiratory failure with hypoxia and hypercapnia: Code(s): J96.01 - Acute respiratory failure with hypoxia; J96.02 - Acute respiratory failure with hypercapnia Status: Acute Assessment and Plan: Likely due to fluid overload and possible PNA -pts CXR is improving with dialysis and abx tx -She is now off o2 -Plan to dialyze again tomorrow. May be able to discharge after that. She will then resume her regimen -continue Levaquin oral. check ekg tomorrow AM to assess QTc since on levaquin (2) ESRD (end stage renal disease) on dialysis: Code(s): N18.6 - End stage renal disease; Z99.2 - Dependence on renal dialysis Status: Acute Assessment and Plan: As above -On a Monday schedule 11/09: 3 liters removed with dialysis yesterday and improved blood pressure present. Dialysis again tomorrow 11/10: 4 liters fluid removed with dialysis today. 11/11: no dialysis 11/12: dialysis planned (3) Leukocytosis: Code(s): D72.829 - Elevated white blood cell count, unspecified Status: Acute Assessment and Plan: as above (4) Pneumonia: Qualifiers: Laterality: bilateral Lung location: unspecified part of lung Pneumonia type: due to unspecified organism Qualified Code(s): J18.9 - Pneumonia, unspecified organism Code(s): J18.9 - Pneumonia, unspecified organism Status: Acute Assessment and Plan: as above Plan # transaminitis. -improving # [id number] diabetes mellitus -status: Last A1c 4.6% on 09/02/2022, recheck at 5.2 # depression: Continue HOT TAR ROOFER mirtazapine 15 mg p.o. q.h.s., sertraline 50 mg p.o. q.h.s. # hypertension: Blood pressure acceptable, continue to monitor # hypothyroidism: Continue HOT TAR ROOFER levothyroxine 112 mcg daily check ekg tomorrow AM to assess QTc since on levaquin Time Spent With Patient Time with patient: 25 - 35 minutes Subjective Date/time seen: 11/12/23 14:00 Interval history: Pt is a 78-year-old female here for pulmonary edema. Patient states she feels better today. She does not have any shortness of breath and she is off oxygen. She still is having a productive cough. She has not tried to lay flat so she does not know about orthopnea. She denies nausea, vomiting, fevers, chills, diarrhea or chest pain. Her last bowel movement was today. She is walking with a walker. Review of Systems Review of Systems: All systems reviewed & are unremarkable except as noted in HPI and below Exam Narrative: General: Well developed well nourished patient in NAD HEENT: normocephalic Neck: supple Neuro: Alert and oriented x4 CV:RRR Resp:Crackles at the bases bilaterally Abd: Soft, non distended. No pain to palpation. Positive bowel sounds Extremities: No swelling, erythema, or pain to palpation. Objective Data Vital Signs Vital Signs: Vital Signs - 24 hr 11/11/23 20:48 11/11/23 20:58 11/11/23 20:00 Temperature Pulse Rate 92 94 Respiratory Rate 20 20 Blood Pressure Pulse Oximetry Oxygen Delivery Room Air 11/11/23 21:25 11/12/23 02:38 11/12/23 02:46 Temperature 98.6 F Pulse Rate 104 H 89 92 Respiratory Rate 16 20 20 Blood Pressure 113/85 Pulse Oximetry 99 Oxygen Delivery 11/12/23 06:05 11/12/23 06:50 11/12/23 06:50 Temperature 98.2 F Pulse Rate 101 H 103 H 103 H Respiratory Rate 16 20 20 Blood Pressure 156/78 H Pulse Oximetry 100 96 Oxygen Delivery Room Air 11/12/23 07:00 11/12/23 12:58 11/12/23 13:05 Temperature Pulse Rate 96 101 H 100 Respiratory Rate 20 20 20 Blood Pressure Pulse Oximetry Oxygen Delivery Intake/Output Intake/Output: Intake & Output 11/09/23 11/10/23 11/11/23 11/12/23 23:59 23:59 23:59 23:59 Intake Total 370 094 2598 590 Output Total 3001 4000 -2020 660 -6135 988 Meds/Results Medications:
[2023-11-12 16:30] LABS: Glucose Point of Care 135 mg/dl (65-105)
[2023-11-12] MEDS: MELATONIN 3 MG TABLET PO (21:25)
[2023-11-12] MEDS: SERTRALINE HCL 50 MG TABLET PO (21:25)
[2023-11-12] MEDS: MIRTAZAPINE 15 MG TABLET PO (21:25)
[2023-11-12 22:07] LABS: Glucose Point of Care 127 mg/dl (65-105)
[2023-11-13] VITALS (28 sets, daily range): BP systolic 103–153; BP diastolic 53–81; PULSE 89–105; RESP 16–20; TEMP 0–36.8; O2SAT 92–100
[2023-11-13] MEDS: IPRATROPIUM 0.5 MG/ALBUTEROL SULFATE 2.5 MG AMPUL.NEB 3 ML INHALATION ×4 (02:08→20:20)
[2023-11-13] MEDS: LEVOTHYROXINE SODIUM 112 MCG TABLET PO (05:24)
[2023-11-13 05:49] LABS: Basophils Percent Auto 0.5 % (0.2-1.2); Eosinophils Absolute Auto 0.1 K/mm3 (0-0.3); Eosinophils Percent Auto 0.6 % (0-4.4); Hematocrit 32.5 % (37.0-47.0); Hemoglobin 10.2 g/dL (12.0-15.0); Immature Granulocyte Absolute 0.09 K/mm3 (0.00-0.031); Immature Granulocyte Percent A 1.1 % (0-0.5); Immature Platelet Fraction Pct 3.9 % (0.9-11.2); Lymphocytes Absolute Auto 0.92 K/mm3 (0.9-3.2); Lymphocytes Percent Auto 10.8 % (18.3-44.2); Mean Corpuscular HGB Conc 31.4 g/dl (32-36); Mean Corpuscular Hemoglobin 31.2 pg (26-34); Mean Corpuscular Volume 99.4 fl (80-100); Mean Platelet Volume 10.4 fl (7.4-10.4); Monocytes Absolute Auto 0.7 K/mm3 (0.1-0.6); Monocytes Percent Auto 7.6 % (2.6-8.5); Neutrophils Absolute Auto 6.8 K/mm3 (1.3-6.7); Neutrophils Percent Auto 79.4 % (45.5-73.1); Platelet Count Result 83 k/mm3 (150-375); Red Blood Count 3.27 M/mm3 (4.2-5.4); Red Cell Distribution Width 19.6 % (11.5-14.5); White Blood Count 8.5 K/mm3 (4.5-10.0)
[2023-11-13 05:56] LABS: Albumin Level 3.5 g/dL (3.5-5.1); Anion Gap 9 mmol/L (4-12); Blood Urea Nitrogen 32 mg/dL (7-17); Calcium 9.1 mg/dL (8.4-10.2); Carbon Dioxide 25 mmol/L (22-30); Chloride 98 mmol/L (98-107); Estimated Glomerular Filt Rate 8; Glucose 119 mg/dL (65-110); Magnesium 1.8 mg/dL (1.6-2.3); Phosphorus 4.1 mg/dL (2.5-4.5); Potassium 4.4 mmol/L (3.4-5.0); Sodium 132 mmol/L (137-145)
--- NOTE | 2023-11-13 06:03 | PC.NURSE ---
I have reviewed the patients charting and agree with the documentation at this time. Will continue to monitor and evaluated patients condition and status.
[2023-11-13 06:10] LABS: Anisocytosis 1+; Hypochromasia 1+; Platelet Estimate Decreased (Adequate)
[2023-11-13 06:11] LABS: Schistocytes None Seen
[2023-11-13 07:37] LABS: Glucose Point of Care 125 mg/dl (65-105)
--- NOTE | 2023-11-13 08:00 | ECG_ITS ---
Test Date: 2023-11-13 09:24:47 Measurements Intervals [place] Rate: 103 P: 245 CA: 187 QRS: 40 QRSD: 164 T: -9 QT: 378 QTc: 495 Interpretive Statements SINUS OR ECTOPIC ATRIAL TACHYCARDIA VENTRICULAR PREMATURE COMPLEX BORDERLINE AV CONDUCTION DELAY RIGHT BUNDLE BRANCH BLOCK ABNORMAL ECG Compared to ECG 11/07/2023 23:19:29 VENTRICULAR BIGEMINY NO LONGER PRESENT Electronically Signed On 11-13-2023 10:14:49 CDT by Jose Luis Sánchez D.O.
[2023-11-13] MEDS: ONDANSETRON INJ 4 MG/2 ML VIAL IV PUSH (09:08)
[2023-11-13 11:40] LABS: Glucose Point of Care 130 mg/dl (65-105)
[2023-11-13] MEDS: ATORVASTATIN 40 MG TABLET PO (12:10)
[2023-11-13] MEDS: VITAMIN E 400 UNIT CAPSULE PO (12:10)
[2023-11-13] MEDS: CHOLECALCIFEROL 1,000 UNITS TABLET 2000 UNITS PO (12:10)
[2023-11-13] MEDS: DOCUSATE SODIUM 100 MG CAPSULE PO (12:10)
--- NOTE | 2023-11-13 15:45 | PM.PNNEP ---
Progress Note: A&P Assessment and Plan (1) End stage renal disease: Code(s): N18.6 - End stage renal disease Status: Chronic Assessment and Plan: HD tomorrow DUF today for further fluid removal continue T/T/S dialysis schedule while hospitalized removing fluid as much as possible per blood pressure. (2) Acute respiratory failure with hypoxia: Code(s): J96.01 - Acute respiratory failure with hypoxia Status: Acute Assessment and Plan: resolving multiple hospitalizations/admissions for pneumonia in the last month noted hypoxia and hypercapnia on presentation CXR shows volume overload. probably pneumonia plus volume overload. cotinue antibiotics. remove fluid as tolerated with HD/DUF (3) Pneumonia: Qualifiers: Laterality: bilateral Lung location: unspecified part of lung Pneumonia type: due to unspecified organism Qualified Code(s): J18.9 - Pneumonia, unspecified organism Code(s): J18.9 - Pneumonia, unspecified organism Status: Acute Assessment and Plan: as suggested by admission symptoms (SOB + productive cough + hypoxia) CXR results noted on antibiotics continue supportive therapy (4) Anemia: Code(s): D64.9 - Anemia, unspecified Status: Chronic Assessment and Plan: due to ESRD and likely worsened by acute infection Epogen with HD on Monday follow H/H (5) Hypertension: Code(s): I10 - Essential (primary) hypertension Status: Chronic Assessment and Plan: reasonable control follow trend of hemodynamics (6) Type 2 diabetes mellitus with diabetic polyneuropathy: Qualifiers: Diabetes mellitus superintendent container terminal insulin use: without superintendent container terminal use Qualified Code(s): E11.42 - Type 2 diabetes mellitus with diabetic polyneuropathy Code(s): E11.42 - Type 2 diabetes mellitus with diabetic polyneuropathy Status: Acute Assessment and Plan: follow accu-cheks glycemic control per hospitalists Will continue to follow. Subjective Date/time seen: 11/13/23 15:45 Interval history: Follow-up for end stage renal disease on hemodialysis. Chart reviewed since last seen -- tolerated dry ultrafiltration at this time (seen on DUF at 3:35PM); breathing/respiratory status appears better/improved; weaned off supplemental oxygen at this time; no other issues/events overnight or earlier this morning. Exam Narrative: General: elderly female in NAD Heart: normal S1 and S2; no rub Lungs: coarse breath sounds Abdomen: soft, nontender, nondistended, positive bowel sounds Extremities: trace - 1+ bilateral edema (chronic) in LEs Skin: warm and dry Objective Data Vital Signs Vital Signs: Vital Signs Temp Pulse Resp BP Pulse Ox O2 Del Method O2 Flow Rate 11/13/23 14:40 98.1 F 102 H 16 144/70 H 95 11/13/23 14:40 0 11/13/23 14:00 97.5 F L 100 20 126/64 96 11/13/23 14:20 105 H 18 11/13/23 14:09 100 18 11/13/23 08:00 Room Air 11/13/23 08:02 97 18 11/13/23 07:55 98 18 11/13/23 05:33 97.6 F 100 18 134/72 96 11/13/23 02:18 94 20 11/13/23 02:09 95 20 11/12/23 21:39 97.8 F 107 H 20 141/83 H 99 11/12/23 20:00 Room Air 11/12/23 19:16 97 20 11/12/23 19:04 98 20 Intake/Output Intake/Output: Intake & Output 11/10/23 11/11/23 11/12/23 11/13/23 23:59 23:59 23:59 23:59 Intake Total 668 1165 1592 922 Output Total 4000 0 Balance 668 -2835 1592 922 Meds/Results Medications: Active Medications Generic Name Dose Route Start Last Admin Trade Name Freq PRN Reason Stop Dose Admin Albuterol/Ipratropium 3 ml 11/08/23 20:00 11/13/23 14:08 Ipratropium 0.5 Mg/Albuterol Sulfate 2.5 Mg Ampul.Neb 3 Ml INHALATION 3 ml Q6HRT ARLYN Administration Atorvastatin Calcium 40 mg 11/07/23 09:00 11/13/23 12:10 Atorvast
--- NOTE | 2023-11-13 15:45 | P.PNNP_ITS ---
Progress Note: A&P Assessment and Plan (1) End stage renal disease: Code(s): N18.6 - End stage renal disease Status: Chronic Assessment and Plan: * HD tomorrow * DUF today for further fluid removal * continue T/T/S dialysis schedule while hospitalized * removing fluid as much as possible per blood pressure. (2) Acute respiratory failure with hypoxia: Code(s): J96.01 - Acute respiratory failure with hypoxia Status: Acute Assessment and Plan: * resolving * multiple hospitalizations/admissions for pneumonia in the last month * noted hypoxia and hypercapnia on presentation * CXR shows volume overload. * probably pneumonia plus volume overload. * cotinue antibiotics. * remove fluid as tolerated with HD/DUF (3) Pneumonia: Qualifiers: Laterality: bilateral Lung location: unspecified part of lung Pneumonia type: due to unspecified organism Qualified Code(s): J18.9 - Pneumonia, unspecified organism Code(s): J18.9 - Pneumonia, unspecified organism Status: Acute Assessment and Plan: * as suggested by admission symptoms (SOB + productive cough + hypoxia) * CXR results noted * on antibiotics * continue supportive therapy (4) Anemia: Code(s): D64.9 - Anemia, unspecified Status: Chronic Assessment and Plan: * due to ESRD and likely worsened by acute infection * Epogen with HD on Monday * follow H/H (5) Hypertension: Code(s): I10 - Essential (primary) hypertension Status: Chronic Assessment and Plan: * reasonable control * follow trend of hemodynamics (6) Type 2 diabetes mellitus with diabetic polyneuropathy: Qualifiers: Diabetes mellitus detention insulin use: without detention use Qualified Code(s): E11.42 - Type 2 diabetes mellitus with diabetic polyneuropathy Code(s): E11.42 - Type 2 diabetes mellitus with diabetic polyneuropathy Status: Acute Assessment and Plan: * follow accu-cheks * glycemic control per hospitalists Will continue to follow. Subjective Date/time seen: 11/13/23 15:45 Interval history: Follow-up for end stage renal disease on hemodialysis. Chart reviewed since last seen -- tolerated dry ultrafiltration at this time (seen on DUF at 3:35PM); breathing/respiratory status appears better/improved; weaned off supplemental oxygen at this time; no other issues/events overnight or earlier this morning. Exam Narrative: General: elderly female in NAD Heart: normal S1 and S2; no rub Lungs: coarse breath sounds Abdomen: soft, nontender, nondistended, positive bowel sounds Extremities: trace - 1+ bilateral edema (chronic) in LEs Skin: warm and dry Objective Data Vital Signs Vital Signs: Vital Signs Temp Pulse Resp BP Pulse Ox O2 Del Method O2 Flow Rate 11/13/23 14:40 98.1 F 102 H 16 144/70 H 95 11/13/23 14:40 0 11/13/23 14:00 97.5 F L 100 20 126/64 96 11/13/23 14:20 105 H 18 11/13/23 14:09 100 18 11/13/23 08:00 Room Air 11/13/23 08:02 97 18 11/13/23 07:55 98 18 11/13/23 05:33 97.6 F 100 18 134/72 96 11/13/23 02:18 94 20 11/13/23 02:09 95 20 11/12/23 21:39 97.8 F 107 H 20 141/83 H 99 11/12/23 20:00
--- NOTE | 2023-11-13 15:46 | PM.IMPN ---
Progress Note: A&P Assessment and Plan (1) Acute respiratory failure with hypoxia: Code(s): J96.01 - Acute respiratory failure with hypoxia Status: Acute (2) Hospital-acquired pneumonia: Code(s): J18.9 - Pneumonia, unspecified organism; Y95 - Nosocomial condition Status: Acute (3) Leukocytosis: Code(s): D72.829 - Elevated white blood cell count, unspecified Status: Acute (4) Acute respiratory failure with hypoxia and hypercapnia: Code(s): J96.01 - Acute respiratory failure with hypoxia; J96.02 - Acute respiratory failure with hypercapnia Status: Acute (5) Acute hypoxic respiratory failure: Code(s): J96.01 - Acute respiratory failure with hypoxia Status: Acute Plan # acute respiratory failure with hypoxia -treating as community-acquired pneumonia possibly hospital-acquired -completing a week of antibiotics today with Levaquin ( resolution of leukocytosis) - fluid overload is being controlled with ultrafiltration - chest x-ray showing edema versus pneumonia # chronic conditions -ESRD: On Monday schedule, plan for dialysis today extra session - non-insulin diabetes: hemoglobin A1c 5.2 , sliding scale insulin, Accu-Cheks a.c. HS, hypoglycemia protocol -depression: Mirtazapine, sertraline -hypertension: held losartan, now requiring midodrine -Hypothyroidism: Levothyroxine - hyperlipidemia: Lipitor - supplements: Vitamin-D Diet: low-sodium diet DVT prophylaxis: Lovenox Code status: full code Disposition: Possibly home after dialysis tomorrow Time Spent With Patient Time: 35 minutes Subjective Date/time seen: 11/13/23 15:46 Interval history: Patient seen and examined. She is doing well today with no new complaints. Patient on antibiotic Levaquin for suspected pneumonia. Plan for hemodialysis today for ultrafiltration and likely hemodialysis can tomorrow back on her regular schedule. She is having some nausea which we have given Zofran. We had been moderate her QTC which is prolonged at 495. she will complete a week of antibiotics today with Levaquin. she denies fever, chills, chest pain, shortness of breath, abdominal pain. Review of Systems Review of Systems: 10 point ROS complete, negative other than what is specified in HPI. Exam Narrative: - GENERAL: pleasant elderly woman no acute distress - EYES: EOMI. Anicteric. - HENT: Moist mucous membranes. - LUNGS: Clear to auscultation bilaterally, no wheezing, rhonchi, or rales. - CARDIOVASCULAR: slightly tachycardic and rhythm. No murmur. No JVD. - ABDOMEN: Soft, non-tender and non-distended. No palpable masses. - EXTREMITIES: Peripheral pulses 2+. Non-tender. - NEUROLOGIC: No focal neurological deficits. CN II-XII grossly intact. - PSYCHIATRIC: Awake, Alert and oriented x 3. Appropriate mood and affect. - SKIN: No rashes or lesions. Warm. - LYMPH: No cervical lymphadenopathy. Objective Data Vital Signs Vital Signs: Vital Signs - 24 hr 11/12/23 19:04 11/12/23 19:16 11/12/23 20:00 Temperature Pulse Rate 98 97 Respiratory Rate 20 20 Blood Pressure Pulse Oximetry Oxygen Delivery Room Air 11/12/23 21:39 11/13/23 02:09 11/13/23 02:18 Temperature 36.6 C Pulse Rate 107 H 95 94 Respiratory Rate 20 20 20 Blood Pressure 141/83 H Pulse Oximetry 99 Oxygen Delivery 11/13/23 05:33 11/13/23 07:55 11/13/23 08:02 Temperature 36.4 C Pulse Rate 100 98 97 Respiratory Rate 18 18 18 Blood Pressure 134/72 Pulse Oximetry 96 Oxygen Delivery 11/13/23 08:00 11/13/23 14:09 11/13/23 14:20 Temperature Pulse Rate 100 105 H Respiratory Rate 18 18 Blood Pressure Pulse Oximetry Oxygen Delivery Room Air 11/13/23 14:00 Temperature 36.4 C L Pulse Rate 100 Respiratory Rate 20 Blood Pressure 126/64 Pulse Oximetry 96 Oxygen Delivery Intake/Output Intake/Output: Intake & Output 11/10/23 11/11/23 11/12/23
[2023-11-13] MEDS: SERTRALINE HCL 50 MG TABLET PO (20:36)
[2023-11-13] MEDS: MIRTAZAPINE 15 MG TABLET PO (20:36)
[2023-11-13] MEDS: MELATONIN 3 MG TABLET PO (20:36)
[2023-11-13 20:45] LABS: Glucose Point of Care 136 mg/dl (65-105)
[2023-11-13] MEDS: diphenhydrAMINE HCl CAP 25 MG CAPSULE PO (21:06)
[2023-11-14] VITALS (24 sets, daily range): BP systolic 108–146; BP diastolic 42–94; PULSE 51–100; RESP 16–20; TEMP 36.5–37; O2SAT 90–99; BMI 31.7
[2023-11-14] MEDS: IPRATROPIUM 0.5 MG/ALBUTEROL SULFATE 2.5 MG AMPUL.NEB 3 ML INHALATION ×2 (02:51→08:30)
[2023-11-14] MEDS: LEVOTHYROXINE SODIUM 112 MCG TABLET PO (06:09)
[2023-11-14 06:18] LABS: Basophils Percent Auto 0.5 % (0.2-1.2); Eosinophils Absolute Auto 0.1 K/mm3 (0-0.3); Eosinophils Percent Auto 0.8 % (0-4.4); Hematocrit 33.7 % (37.0-47.0); Hemoglobin 10.2 g/dL (12.0-15.0); Immature Granulocyte Absolute 0.07 K/mm3 (0.00-0.031); Immature Granulocyte Percent A 0.8 % (0-0.5); Immature Platelet Fraction Pct 4.2 % (0.9-11.2); Lymphocytes Absolute Auto 1.08 K/mm3 (0.9-3.2); Lymphocytes Percent Auto 12.2 % (18.3-44.2); Mean Corpuscular HGB Conc 30.3 g/dl (32-36); Mean Corpuscular Hemoglobin 30.4 pg (26-34); Mean Corpuscular Volume 100.3 fl (80-100); Mean Platelet Volume 10.9 fl (7.4-10.4); Monocytes Absolute Auto 0.7 K/mm3 (0.1-0.6); Monocytes Percent Auto 7.3 % (2.6-8.5); Neutrophils Percent Auto 78.4 % (45.5-73.1); Platelet Count Result 86 k/mm3 (150-375); Red Blood Count 3.36 M/mm3 (4.2-5.4); Red Cell Distribution Width 19.6 % (11.5-14.5); White Blood Count 8.9 K/mm3 (4.5-10.0)
[2023-11-14 06:30] LABS: Albumin Level 3.4 g/dL (3.5-5.1); Anion Gap 11 mmol/L (4-12); Blood Urea Nitrogen 41 mg/dL (7-17); Calcium 8.9 mg/dL (8.4-10.2); Carbon Dioxide 25 mmol/L (22-30); Chloride 95 mmol/L (98-107); Estimated Glomerular Filt Rate 6; Glucose 97 mg/dL (65-110); Magnesium 1.9 mg/dL (1.6-2.3); Phosphorus 5.2 mg/dL (2.5-4.5); Potassium 4.7 mmol/L (3.4-5.0); Sodium 131 mmol/L (137-145)
[2023-11-14 07:36] LABS: Glucose Point of Care 104 mg/dl (65-105)
--- NOTE | 2023-11-14 09:12 | PCPTNOTE ---
The patient treatment was not able to be completed this morning on 11/14/2023 due to patient out of the room for dialysis. Will plan to continue treatment per plan of care.
[2023-11-14] MEDS: MIDODRINE HCL 10 MG TABLET PO (10:50)
--- NOTE | 2023-11-14 10:57 | P.PNNP_ITS ---
Progress Note: A&P Assessment and Plan (1) End stage renal disease: Code(s): N18.6 - End stage renal disease Status: Chronic Assessment and Plan: * HD today * DUF yesterday for further fluid removal * continue T/T/S dialysis schedule while hospitalized * removing fluid as much as possible per blood pressure. (2) Acute respiratory failure with hypoxia: Code(s): J96.01 - Acute respiratory failure with hypoxia Status: Acute Assessment and Plan: * resolving * multiple hospitalizations/admissions for pneumonia in the last month * noted hypoxia and hypercapnia on presentation * CXR shows volume overload. * probably pneumonia plus volume overload. * cotinue antibiotics. * remove fluid as tolerated with HD/DUF (3) Pneumonia: Qualifiers: Laterality: bilateral Lung location: unspecified part of lung Pneumonia type: due to unspecified organism Qualified Code(s): J18.9 - Pneumonia, unspecified organism Code(s): J18.9 - Pneumonia, unspecified organism Status: Acute Assessment and Plan: * as suggested by admission symptoms (SOB + productive cough + hypoxia) * CXR results noted * on antibiotics * continue supportive therapy (4) Anemia: Code(s): D64.9 - Anemia, unspecified Status: Chronic Assessment and Plan: * due to ESRD and likely worsened by acute infection * Epogen with HD on Monday * follow H/H (5) Hypertension: Code(s): I10 - Essential (primary) hypertension Status: Chronic Assessment and Plan: * reasonable control * follow trend of hemodynamics (6) Type 2 diabetes mellitus with diabetic polyneuropathy: Qualifiers: Diabetes mellitus prison insulin use: without prison use Qualified Code(s): E11.42 - Type 2 diabetes mellitus with diabetic polyneuropathy Code(s): E11.42 - Type 2 diabetes mellitus with diabetic polyneuropathy Status: Acute Assessment and Plan: * follow accu-cheks * glycemic control per hospitalists Not opposed to discharge from renal perspective if otherwise medically stable. Will continue to follow. Subjective Date/time seen: 11/14/23 10:57 Interval history: Follow-up for end stage renal disease on hemodialysis. Tolerated dry ultrafiltration yesterday morning and tolerating dialysis at the time of my visit (seen on HD at 10:45AM); respiratory status seems stable if not better and remains off supplemental oxygen therapy; no apparent issues overnight or earlier this morning; anxious for discharge. Exam Narrative: General: elderly female in NAD Heart: normal S1 and S2; no rub Lungs: coarse breath sounds Abdomen: soft, nontender, nondistended, positive bowel sounds Extremities: trace - 1+ bilateral edema (chronic) in LEs Skin: warm and intact Objective Data Vital Signs Vital Signs: Vital Signs Temp Pulse Resp BP Pulse Ox O2 Del Method O2 Flow Rate 11/14/23 10:45 92 140/66 11/14/23 10:30 91 126/65 11/14/23 10:15 94 146/62 H 11/14/23 10:00 90 124/66 11/14/23 09:45 93 130/62 11/14/23 09:30 97 133/66 11/14/23 09:15 98 138/67 11/14/23 09:09 99 118/66 11/14/23 08:53 97.9 F 100 16 137/73 95 11/14/23 08:38 97 16
--- NOTE | 2023-11-14 10:57 | PM.PNNEP ---
Progress Note: A&P Assessment and Plan (1) End stage renal disease: Code(s): N18.6 - End stage renal disease Status: Chronic Assessment and Plan: HD today DUF yesterday for further fluid removal continue T/T/S dialysis schedule while hospitalized removing fluid as much as possible per blood pressure. (2) Acute respiratory failure with hypoxia: Code(s): J96.01 - Acute respiratory failure with hypoxia Status: Acute Assessment and Plan: resolving multiple hospitalizations/admissions for pneumonia in the last month noted hypoxia and hypercapnia on presentation CXR shows volume overload. probably pneumonia plus volume overload. cotinue antibiotics. remove fluid as tolerated with HD/DUF (3) Pneumonia: Qualifiers: Laterality: bilateral Lung location: unspecified part of lung Pneumonia type: due to unspecified organism Qualified Code(s): J18.9 - Pneumonia, unspecified organism Code(s): J18.9 - Pneumonia, unspecified organism Status: Acute Assessment and Plan: as suggested by admission symptoms (SOB + productive cough + hypoxia) CXR results noted on antibiotics continue supportive therapy (4) Anemia: Code(s): D64.9 - Anemia, unspecified Status: Chronic Assessment and Plan: due to ESRD and likely worsened by acute infection Epogen with HD on Monday follow H/H (5) Hypertension: Code(s): I10 - Essential (primary) hypertension Status: Chronic Assessment and Plan: reasonable control follow trend of hemodynamics (6) Type 2 diabetes mellitus with diabetic polyneuropathy: Qualifiers: Diabetes mellitus fci insulin use: without fci use Qualified Code(s): E11.42 - Type 2 diabetes mellitus with diabetic polyneuropathy Code(s): E11.42 - Type 2 diabetes mellitus with diabetic polyneuropathy Status: Acute Assessment and Plan: follow accu-cheks glycemic control per hospitalists Not opposed to discharge from renal perspective if otherwise medically stable. Will continue to follow. Subjective Date/time seen: 11/14/23 10:57 Interval history: Follow-up for end stage renal disease on hemodialysis. Tolerated dry ultrafiltration yesterday morning and tolerating dialysis at the time of my visit (seen on HD at 10:45AM); respiratory status seems stable if not better and remains off supplemental oxygen therapy; no apparent issues overnight or earlier this morning; anxious for discharge. Exam Narrative: General: elderly female in NAD Heart: normal S1 and S2; no rub Lungs: coarse breath sounds Abdomen: soft, nontender, nondistended, positive bowel sounds Extremities: trace - 1+ bilateral edema (chronic) in LEs Skin: warm and intact Objective Data Vital Signs Vital Signs: Vital Signs Temp Pulse Resp BP Pulse Ox O2 Del Method O2 Flow Rate 11/14/23 10:45 92 140/66 11/14/23 10:30 91 126/65 11/14/23 10:15 94 146/62 H 11/14/23 10:00 90 124/66 11/14/23 09:45 93 130/62 11/14/23 09:30 97 133/66 11/14/23 09:15 98 138/67 11/14/23 09:09 99 118/66 11/14/23 08:53 97.9 F 100 16 137/73 95 11/14/23 08:38 97 16 11/14/23 08:30 99 16 11/14/23 05:44 98.6 F 95 20 132/69 96 11/14/23 03:04 92 18 11/14/23 02:51 92 18 11/13/23 20:00 97 18 96 Room Air 11/13/23 20:44 98.2 F 98 18 142/73 H 98 11/13/23 20:29 100 18 11/13/23 20:22 98 18 11/13/23 20:21 92 Room Air 11/13/23 17:50 89 124/56 L 11/13/23 17:45 89 124/55 L 11/13/23 17:30 93 103/58 L 11/13/23 17:15 91 110/61 11/13/23 17:00 98 143/69 H 11/13/23 16:45 93 105/53 L 11/13/23 16:30 92 116/62 11/13/23 16:15 98 139/75 11/13/23 16:00 94 153/71 H 11/13/23 15
--- NOTE | 2023-11-14 11:06 | PC.NURSE ---
Dialysis nurse requested midodrine to be administered for patient during dialysis treatment per orders from Dr. Morley. Midodrine administered as requested at 1045, BP at time of administration 140/66, dialysis nurse aware of current vital signs.
[2023-11-14 11:38] LABS: Glucose Point of Care 127 mg/dl (65-105)
[2023-11-14] MEDS: EPOETIN ALFA-EPBX 10,000 UNITS/ML VIAL 10000 UNITS IV PUSH (11:53)
--- NOTE | 2023-11-14 12:59 | PM.DS ---
DS: Admitting Diagnosis Discharge Date 11/14/23 Admitting Diagnosis Acute respiratory failure with hypoxia DS: Discharge Diagnosis Discharge Diagnosis (1) Acute respiratory failure with hypoxia: Code(s): J96.01 - Acute respiratory failure with hypoxia Status: Acute (2) Hospital-acquired pneumonia: Code(s): J18.9 - Pneumonia, unspecified organism; Y95 - Nosocomial condition Status: Acute (3) Leukocytosis: Code(s): D72.829 - Elevated white blood cell count, unspecified Status: Acute (4) Acute respiratory failure with hypoxia and hypercapnia: Code(s): J96.01 - Acute respiratory failure with hypoxia; J96.02 - Acute respiratory failure with hypercapnia Status: Acute (5) Acute hypoxic respiratory failure: Code(s): J96.01 - Acute respiratory failure with hypoxia Status: Acute (6) Pneumonia: Qualifiers: Laterality: bilateral Lung location: unspecified part of lung Pneumonia type: due to unspecified organism Qualified Code(s): J18.9 - Pneumonia, unspecified organism Code(s): J18.9 - Pneumonia, unspecified organism Status: Acute (7) ESRD (end stage renal disease) on dialysis: Code(s): N18.6 - End stage renal disease; Z99.2 - Dependence on renal dialysis Status: Acute DS: Summary Hospital Course Reason for hospitalization: Acute hypoxia concern of fluid overload in setting of ESRD Hospital Course: Patient has a past medical history of ESRD on dialysis Monday via LUE AVF, erv-trymhki-ayhxpdviz 2 diabetes, essential hypertension, hypothyroidism, depression presents to ED with complaints of dyspnea and cough. She has previously had pneumonia October 07 treated with Augmentin and azithromycin, October 11 to October 14 treated with antibiotics and discharged with doxycycline. She now presents again on 11/05 with pneumonia and treated with cefepime, vancomycin, completing antibiotic course with Levaquin. Patient will not need any more antiobitics on discharge. Patient also had some fluid overload and Nephrology has been diuresing patient with HD ultrafiltration. At times requiring midodrine hypotension post dialysis. She has been weaned off of oxygen. We had been holding her losartan to help with ultrafiltration, will continue to hold her blood pressure medication. At time of discharge patient's vitals are stable, labs stable, patient is stable for discharge home. Patient to follow-up with her PCP in 1 week. Patient understands and agrees with plan. Status at Discharge Cognitive/behavioral status at discharge: baseline Time Spent with Patient Time attestation: Total time spent providing and/or coordinating discharge services: 35 minutes Exam Narrative: - GENERAL: pleasant elderly woman no acute distress - EYES: EOMI. Anicteric. - HENT: Moist mucous membranes. - LUNGS: Clear to auscultation bilaterally, no wheezing, rhonchi - CARDIOVASCULAR: slightly tachycardic and rhythm. No murmur. No JVD. - ABDOMEN: Soft, non-tender and non-distended. No palpable masses. - EXTREMITIES: Peripheral pulses 2+. Non-tender. Left upper extremity AV fistula - NEUROLOGIC: No focal neurological deficits. CN II-XII grossly intact. - PSYCHIATRIC: Awake, Alert and oriented x 3. Appropriate mood and affect. - SKIN: No rashes or lesions. Warm. - LYMPH: No cervical lymphadenopathy. DS: Data Data Completed and Pending Labs on day of discharge: Labs from last 24 hours 11/14/23 11/14/23 11/14/23 11:34 07:33 05:35 WBC 8.9 RBC 3.36 L Hgb 10.2 L Hct 33.7 L MCV 100.3 H MCH 30.4 MCHC 30.3 L RDW 19.6 H Plt Count 86 L MPV 10.9 H Immature Gran % (Auto) 0.8 H Neut % (Auto) 78.4 H Lymph % (Auto) 12.2 L [place] % (Auto) 7.3 Eos % (Auto) 0.8 Baso % (Auto) 0.5 Lymph # (Auto) 1.08 [place] # (Auto) 0.7 H Eos # (Auto) 0.1 Baso # (Auto) 0.0 Abs Immat Gran (auto) 0.07 H Absolute Neuts (a
== END 2023-11-14 14:42 | disposition home or self-care (01) | DRG 189 ==
LOC: ANHED 17:52 → ANH3MEDSUR 20:13
PROVIDERS: Emergency Medicine; Internal Medicine; Internal Medicine Nephrology; Nurse Practitioner; Physician Assistant; Admitting Provider General Practice; Emergency Provider Physician Assistant; PCP Family Medicine Adolescent Medicine; Visit Provider Student in an Organized Health Care Education/Training Program
DX: J96.01 Acute respiratory failure with hypoxia (principal); N18.6 End stage renal disease; J18.9 Pneumonia, unspecified organism; I12.0 Hypertensive chronic kidney disease with stage 5 chronic kidney disease or end stage renal disease; Z99.2 Dependence on renal dialysis; D63.1 Anemia in chronic kidney disease; J96.02 Acute respiratory failure with hypercapnia; Y95 Nosocomial condition; E11.22 Type 2 diabetes mellitus with diabetic chronic kidney disease; E11.42 Type 2 diabetes mellitus with diabetic polyneuropathy; E03.9 Hypothyroidism, unspecified; F32.A Depression, unspecified; M17.0 Bilateral primary osteoarthritis of knee; M19.90 Unspecified osteoarthritis, unspecified site; R00.8 Other abnormalities of heart beat; Z20.822 Contact with and (suspected) exposure to COVID-19; Z79.84 Long term (current) use of oral hypoglycemic drugs
CPT/HCPCS: 36415; 36600; 71045; 71046; 71250; 80048; 80053; 80069; 80076; 80202; 82375; 82805; 82948; 83036; 83050; 83690; 83735; 83880; 84100; 84145; 85025; 85055; 86706; 87040; 87070; 87205; 87340; 87637; 87641; 92610; 93005; 93306; 94640; 94762; 96374; 96375; 97110; 97116; 97161; 97165; 97530; 99285; A9270; C8929; G0257; G0378; J0692; J1644; J1650; J1815; J1940; J2405; J3370; J7030; P9047; Q5105

== ENCOUNTER 2024-01-26 10:54 | Inpatient (IN) | payer OTHER, SELFPAY ==
[2024-01-26] VITALS (8 sets, daily range): BP systolic 113–159; BP diastolic 60–75; PULSE 80–99; RESP 16–28; TEMP 37.1–37.4; O2SAT 94–100
--- NOTE | ~2024-01-26 | XR_ITS ---
EXAMINATION: XR chest 1V DATE: 01/26/2024 14:12 INDICATION: Shortness of breath TECHNIQUE: AP view of the chest was obtained. COMPARISON: Chest radiograph dated 11/12/2023 FINDINGS: Interstitial and airspace opacities in both lungs with perihilar and left mid to lower lung predomina nce. Small left pleural effusion. No pneumothorax or right pleural effusion. Cardiomegaly. Enlargemen t of the central pulmonary arteries consistent with pulmonary arterial hypertension. Cholecystectomy clips in right upper quadrant. IMPRESSION: 1. Interstitial and airspace opacities in bilateral perihilar regions and left mid and lower lung zon es which could represent pulmonary edema, pneumonia, atelectasis or some combination thereof. 2. Small left pleural effusion. 3. Cardiomegaly and enlargement of the central pulmonary consistent with pulmonary arterial hypertens ion. Reviewed, dictated and finalized at location B. IMPRESSION: 1. Interstitial and airspace opacities in bilateral perihilar regions and left mid and lower lung zones which could represent pulmonary edema, pneumonia, atel ectasis or some combination thereof. 2. Small left pleural effusion. 3. Cardiomegaly and enlargement of the central pulmonary consistent with pulmon rj arterial hypertension.
--- NOTE | ~2024-01-26 | CT_ITS ---
EXAMINATION: CTA chest PE protocol DATE: 01/26/2024 17:15 INDICATION: Dyspnea. TECHNIQUE: Computed tomography angiography (CTA) of the chest was performed with 100 mL Omnipaque-350 intravenous contrast timed to evaluate the pulmonary arteries. Coronal maximum intensity projection 3D-reconstructions were created by the technologist. Automated exposure control and iterative reconst ruction technique were employed. The dose-length product was 207.40 mGy-cm. COMPARISON: Chest CT 11/07/2023 FINDINGS: There are patchy airspace opacities in all lobes, left worst than right, consistent with pn eumonia. There is a small left pleural effusion. Cardiomegaly is noted. There are coronary artery osiel cifications. There are calcifications of the aortic valve. No pericardial effusion. The central pulmo naries are enlarged, consistent with pulmonary arterial hypertension. There is no pulmonary embolus. Calcifications in the liver and spleen are consistent with old granulomatous disease. There is mild m ediastinal and left supraclavicular lymphadenopathy. For example, a left supraclavicular node measure s 15 x 13 mm. There is severe thoracic spondylosis. IMPRESSION: 1. Multifocal pneumonia, left worse than right. 2. No pulmonary embolus. 3. Small left pleural effusion. 4. Mild mediastinal and left supraclavicular lymphadenopathy, likely reactive. Reviewed, dictated and finalized at location A.
[2024-01-26 15:21] LABS: Hematocrit 31.6 % (37.0-47.0); Hemoglobin 9.5 g/dL (12.0-15.0); Mean Corpuscular HGB Conc 30.1 g/dl (32-36); Mean Corpuscular Hemoglobin 30.5 pg (26-34); Mean Corpuscular Volume 101.6 fl (80-100); Mean Platelet Volume 9.8 fl (7.4-10.4); Platelet Count Result 147 k/mm3 (150-375); Red Blood Count 3.11 M/mm3 (4.2-5.4); Red Cell Distribution Width 17.2 % (11.5-14.5); White Blood Count 15.2 K/mm3 (4.5-10.0)
[2024-01-26 15:36] LABS: Alanine Aminotransferase 18 U/L (6-35); Albumin Level 3.7 g/dL (3.5-5.1); Alkaline Phosphatase 195 U/L (38-126); Anion Gap 8 mmol/L (4-12); Aspartate Amino Transferase 35 U/L (14-36); Bilirubin,Total 0.7 mg/dL (0.2-1.3); Blood Urea Nitrogen 34 mg/dL (7-17); Calcium 9.1 mg/dL (8.4-10.2); Carbon Dioxide 31 mmol/L (22-30); Chloride 92 mmol/L (98-107); Estimated Glomerular Filt Rate 9; Glucose 149 mg/dL (65-110); Magnesium 2.4 mg/dL (1.6-2.3); Potassium 4.3 mmol/L (3.4-5.0); Sodium 131 mmol/L (137-145)
[2024-01-26 15:45] LABS: NT Pro B Type Natriuretic Pept > 30000 pg/mL (19.9-100)
[2024-01-26 15:47] LABS: Basophils Absolute Manual 0.15 K/mm3 (0.0-0.1); Basophils Percent Manual 1 % (0-1); Hypochromasia 1+; Lymphocytes Absolute Manual 0.91 K/mm3 (1.1-4.5); Monocytes Absolute Manual 0.15 K/mm3 (0.1-0.90); Monocytes Percent Manual 1 % (3-9); Neutrophils Percent Manual 92 % (46-73); Platelet Estimate Slightly Decreased (Adequate); Schistocytes None Seen; Total Cells Counted 100
[2024-01-26 15:48] LABS: Anisocytosis 2+
[2024-01-26 15:49] LABS: D Dimer 3.41 ug/mL (<0.48)
[2024-01-26 16:20] LABS: Influenza A QL RT-PCR Negative (Negative); Influenza B QL RT-PCR Negative (Negative); SARS-CoV-2 RNA PCR Negative (Negative)
--- NOTE | 2024-01-26 17:14 | ED.SOB ---
HPI - SOB/Dyspnea General Chief Complaint: Shortness of Breath/Dyspnea Stated Complaint: SOB Time Seen by Provider: 01/26/24 15:01 History of Present Illness HPI Narrative: 78-year-old female with a past medical history significant for end-stage renal disease on hemodialysis Monday, , Monday via left upper extremity AV fistula. She also has a history of jgn-ztfjvfi-lfkepnafx type 2 diabetes, hypertension, hypothyroidism. Presents to the emergency department today with a chief complaint of shortness of breath. She states it feels similar to the last time she had pneumonia and she was admitted to this hospital at the beginning of November for community-acquired pneumonia. She stayed for several days and was discharged with antibiotic therapy. She is denying any chest pain, nauseous, vomiting, back pain, leg swelling. She underwent hemodialysis yesterday without any issues. It took off 1.5 L of fluid yesterday. She was noted to be significantly hypoxic on triage assessment to 74% on room air. She improved to 100% saturation on nasal cannula. Does not wear oxygen at home. Family is present at bedside and provided collateral formation telling me that they think she needs oxygen evaluation for home O2 use. Patient presently is resting comfortably on oxygen denies any ongoing dyspnea with the oxygen supplementation. No present chest discomfort or any other symptoms. No history of DVT or PE. Does not taking anticoagulation medications presently Related Data Home Medications Medication Instructions Recorded Confirmed calcium acetate(phosphat bind) 667 See Rx Instructions .Route .COMPLEX 12/04/21 01/26/24 mg capsule docusate sodium 100 mg capsule 100 mg PO BID 12/04/21 01/26/24 (Colace) vitamin B complex and vitamin C See Rx Instructions .Route .COMPLEX 12/04/21 01/26/24 no.20-folic acid 1 mg capsule (Triphrocaps) cholecalciferol (vitamin D3) 50 50 mcg PO DAILY 01/11/22 01/26/24 mcg (2,000 unit) capsule melatonin 3 mg capsule 3 mg PO QHS 01/11/22 01/26/24 vitamin E (dl, acetate) 180 mg 180 mg PO DAILY 01/11/22 01/26/24 (400 unit) capsule atorvastatin 40 mg tablet 40 mg PO DAILY 10/12/23 01/26/24 sertraline 50 mg tablet 50 mg PO HS 11/06/23 01/26/24 mirtazapine 7.5 mg tablet 7.5 mg PO DAILY 01/26/24 01/26/24 Allergies Allergy/AdvReac Type Severity Reaction Status Date / Time ibuprofen AdvReac Mild Abdominal Verified 01/26/24 17:38 Pain Review of Systems Review of Systems: All systems reviewed & are unremarkable except as noted in HPI and below PMFSH Past Medical History Medical History Arthritis Chronic kidney disease Depression Diabetes Gout Hypertension Hypothyroidism Nephrolithiasis Pneumonia Primary localized osteoarthritis of knees, bilateral Surgical History Surgical History H/O inguinal hernia repair Hx of tonsillectomy Family History Family History Other Diabetes mellitus Heart disease Hypertension Social History Social History Social History: Patient lives with her daughter, grandson daughter's kids and her daughter daughters kids. Patient's did of diabetes in 1985. Patient wishes to be a full code does like her daughter to be her surrogate. She also does have 3 dogs and 2 cats that live with her as well. Smoking status: Never smoker Second hand tobacco smoke exposure: No Alcohol intake: never Substance use: never Substance use type: does not use Do You Feel Safe in your Home?: Yes Lack of Transportation: No Lack of Food: Never True Current Housing: I Have Housing Concerned About Future Housing: No Difficulty Paying Gas/Electric Bills: No Difficulty Paying for Meds: No Currently Unemploye
--- NOTE | 2024-01-26 17:21 | ECG_ITS ---
Test Date: 2024-01-26 17:34:24 Measurements Intervals [place] Rate: 87 P: 256 OR: 182 QRS: 38 QRSD: 165 T: -12 QT: 397 QTc: 480 Interpretive Statements ECTOPIC ATRIAL RHYTHM WITH OCCASIONAL VENTRICULAR PREMATURE COMPLEXES RIGHT BUNDLE BRANCH BLOCK ABNORMAL ECG Compared to ECG 11/13/2023 09:24:47 HEART RATE HAS DECREASED Electronically Signed On 01-27-2024 11:31:28 CDT by Jose Luis Sánchez D.O.
[2024-01-26] MEDS: DOXYCYCLINE 100 MG/NS 100 ML 100 MG/100 ML BAG IVPB (18:01)
[2024-01-26 20:14] LABS: Procalcitonin 0.8 ng/mL
[2024-01-26 20:36] LABS: Glucose Point of Care 142 mg/dl (65-105)
--- NOTE | 2024-01-26 20:53 | PM.IMHP ---
H&P: HPI History of Present Illness Date/Time: 01/26/24 20:53 Chief Complaint: sob Narrative: This is an 78-year-old female with past medical history significant for end-stage renal disease on hemodialysis, diabetes, hypertension. Patient was brought to the emergency room due to shortness of breath low pulse ox. In emergency room required supplemental oxygen by nasal cannula preliminary workup was significant for chest x-ray with infiltrate. Most of the history has been obtained from medical records. Patient complained of shortness of breath but can not really contribute in a meaningful way to history taking. EXAMINATION: XR chest 1V DATE: 01/26/2024 14:12 INDICATION: Shortness of breath TECHNIQUE: AP view of the chest was obtained. COMPARISON: Chest radiograph dated 11/12/2023 FINDINGS: Interstitial and airspace opacities in both lungs with perihilar and left mid to lower lung predominance. Small left pleural effusion. No pneumothorax or right pleural effusion. Cardiomegaly. Enlargement of the central pulmonary arteries consistent with pulmonary arterial hypertension. Cholecystectomy clips in right upper quadrant. IMPRESSION: 1. Interstitial and airspace opacities in bilateral perihilar regions and left mid and lower lung zones which could represent pulmonary edema, pneumonia, atelectasis or some combination thereof. 2. Small left pleural effusion. 3. Cardiomegaly and enlargement of the central pulmonary consistent with pulmonary arterial hypertension. EXAMINATION: CTA chest PE protocol DATE: 01/26/2024 17:15 INDICATION: Dyspnea. TECHNIQUE: Computed tomography angiography (CTA) of the chest was performed with 100 mL Omnipaque-350 intravenous contrast timed to evaluate the pulmonary arteries. Coronal maximum intensity projection 3D-reconstructions were created by the technologist. Automated exposure control and iterative reconstruction technique were employed. The dose-length product was 207.40 mGy-cm. COMPARISON: Chest CT 11/07/2023 FINDINGS: There are patchy airspace opacities in all lobes, left worst than right, consistent with pneumonia. There is a small left pleural effusion. Cardiomegaly is noted. There are coronary artery calcifications. There are calcifications of the aortic valve. No pericardial effusion. The central pulmonaries are enlarged, consistent with pulmonary arterial hypertension. There is no pulmonary embolus. Calcifications in the liver and spleen are consistent with old granulomatous disease. There is mild mediastinal and left supraclavicular lymphadenopathy. For example, a left supraclavicular node measures 15 x 13 mm. There is severe thoracic spondylosis. IMPRESSION: 1. Multifocal pneumonia, left worse than right. 2. No pulmonary embolus. 3. Small left pleural effusion. 4. Mild mediastinal and left supraclavicular lymphadenopathy, likely reactive. Review of Systems Review of Systems: ROS unobtainable: Yes unobtainable due to mental status ( obtundation/lethargy) PMFSH Past Medical History Medical History (Updated 01/27/24 @ 00:31 by Luiza Schulte MD) Arthritis Chronic kidney disease Depression Diabetes Gout Hypertension Hypothyroidism Nephrolithiasis Pneumonia Primary localized osteoarthritis of knees, bilateral Surgical History Surgical History H/O inguinal hernia repair Hx of tonsillectomy Family History Family History Other Diabetes mellitus Heart disease Hypertension Social History Social History Social History: Patient lives with her daughter, grandson daughter's kids and her daughter daughters kids. Patient's did of diabetes in 1985. Patient wishes to be a full code does like her daughter to be her surrogate. She also does have 3 dogs and 2 cats that live with her as
--- NOTE | 2024-01-26 21:55 | ADMGEN ---
This patient, Gisele Centeno, was admitted to [facility] Surg Room 330-02. Patient/family oriented to hospital policies and general routines including ID bracelet, bed and alarms, visiting hours, pain management, procedures, bathroom and other care routines, personal items, smoking policy, room service/diet, and visiting hours. Information on how to activate the Rapid Response Team has been discussed. Patient/Family are encouraged to report perceived risks to care and to ask questions if they do not understand what they are told or what they should do.
[2024-01-27] VITALS (24 sets, daily range): BP systolic 98–145; BP diastolic 49–73; PULSE 72–99; RESP 16–22; TEMP 36.5–37; O2SAT 94–100
[2024-01-27] MEDS: LEVOTHYROXINE SODIUM 112 MCG TABLET PO (06:25)
[2024-01-27 08:04] LABS: Glucose Point of Care 91 mg/dl (65-105)
[2024-01-27] MEDS: VITAMIN B CMPLX/VIT C/FOLIC AC 1 CAPSULE 1 CAP PO (09:10)
[2024-01-27] MEDS: DOCUSATE SODIUM 100 MG CAPSULE PO (09:10)
[2024-01-27] MEDS: ATORVASTATIN 40 MG TABLET PO (09:10)
[2024-01-27] MEDS: MIRTAZAPINE 7.5 MG TABLET PO (09:10)
[2024-01-27] MEDS: EMPAGLIFLOZIN 10 MG TABLET BY MOUTH (09:13)
--- NOTE | 2024-01-27 09:59 | PM.IMPN ---
Progress Note: A&P Assessment and Plan (1) Pneumonia: Code(s): J18.9 - Pneumonia, unspecified organism Status: Acute (2) Acute respiratory failure with hypoxia: Code(s): J96.01 - Acute respiratory failure with hypoxia Status: Acute (3) End stage renal disease on dialysis: Code(s): N18.6 - End stage renal disease; Z99.2 - Dependence on renal dialysis Status: Acute (4) Diabetes: Code(s): E11.9 - Type 2 diabetes mellitus without complications Status: Acute Plan 78-year-old female with a past medical history significant for end-stage renal disease on hemodialysis Monday, , Monday via left upper extremity AV fistula. She also has a history of [id number] type 2 diabetes, hypertension, hypothyroidism. Presents to the emergency department today with a chief complaint of shortness of breath. She states it feels similar to the last time she had pneumonia and she was admitted to this hospital at the beginning of November for community-acquired pneumonia. She stayed for several days and was discharged with antibiotic therapy. She is denying any chest pain, nauseous, vomiting, back pain, leg swelling. She underwent hemodialysis yesterday without any issues. It took off 1.5 L of fluid yesterday. She was noted to be significantly hypoxic on triage assessment to 74% on room air. She improved to 100% saturation on nasal cannula. Does not wear oxygen at home. Family is present at bedside and provided collateral formation telling me that they think she needs oxygen evaluation for home O2 use. Patient presently is resting comfortably on oxygen denies any ongoing dyspnea with the oxygen supplementation. No present chest discomfort or any other symptoms. No history of DVT or PE. Does not taking anticoagulation medications presently thyroid evaluation in the ED showed WBC of 15.2 hemoglobin of 9.5 platelet a 147 creatinine of 4.5 sodium 131 potassium was 4.3. D-dimer was significantly elevated. Influenza RSV and COVID swab was negative. BNP was more than 30,000. chest x-ray showed interstitial and airspace opacities in bilateral perihilar regions and left mid and lower lung zones which could represent pulmonary edema pneumonia atelectasis or some combination there of. Small left pleural effusion. Cardiomegaly enlargement of the central pulmonary consistent with pulmonary arterial hypertension. This was followed with/ CT a chest which showed multifocal pneumonia left worse than right no PE small left pleural effusion mild mediastinal and left supraclavicular lymphadenopathy likely reactive Acute hypoxic respiratory failure due to pneumonia multifocal pneumonia IV antibiotics as ordered End-stage renal disease on hemodialysis Monday nephrology has been consulted for inpatient hemodialysis Type 2 diabetes SSI Hypertension Hypothyroidism Hyperlipidemia Anxiety depression Osteoarthritis Gout DVT prophylaxis heparin subQ Code status full code Subjective Date/time seen: 01/27/24 09:59 Interval history: Feeling better. Denies any shortness of breath. Does have cough. Review of Systems Review of Systems: All systems reviewed & are unremarkable except as noted in HPI and below Exam Narrative: GENERAL: Chronically ill-appearing but not in any acute distress, resting comfortably on nasal cannula oxygen HEAD: Normocephalic, atraumatic. EYES: PERRLA and EOMI. ENT: Nares clear, no rhinorrhea or epistaxis. Mucous membranes moist. NECK: Supple. CHEST: Coarse breath sounds bilaterally but no respiratory distress. HEART: Regular rate and rhythm. No murmur heard. Normal peripheral pulses. ABDOMEN: Soft, nondistended, nontender, No rigidity or guarding EXTREMITIES: Normal range of motion. 1+ peripheral edema SKIN: Warm, dry, no rash. NEURO: No focal deficits. Alert and orientedx3 PSYCH: Normal mood and affect. Objective Data Vital Signs Vital Sig
[2024-01-27] MEDS: AZITHROMYCIN 500 MG/NS 250 ML 500 MG/250 ML BAG 250 MG IVPB (10:56)
[2024-01-27 11:47] LABS: MRSA (PCR) NOT DETECTED (NOT DETECTE)
[2024-01-27 12:05] LABS: Glucose Point of Care 141 mg/dl (65-105)
[2024-01-27 12:38] LABS: Basophils Percent Auto 0.3 % (0.2-1.2); Eosinophils Percent Auto 0.2 % (0-4.4); Hematocrit 31.3 % (37.0-47.0); Hemoglobin 9.3 g/dL (12.0-15.0); Immature Granulocyte Absolute 0.12 K/mm3 (0.00-0.031); Immature Granulocyte Percent A 0.8 % (0-0.5); Lymphocytes Absolute Auto 0.84 K/mm3 (0.9-3.2); Lymphocytes Percent Auto 5.8 % (18.3-44.2); Mean Corpuscular HGB Conc 29.7 g/dl (32-36); Mean Corpuscular Hemoglobin 30.5 pg (26-34); Mean Corpuscular Volume 102.6 fl (80-100); Mean Platelet Volume 9.7 fl (7.4-10.4); Monocytes Absolute Auto 0.6 K/mm3 (0.1-0.6); Monocytes Percent Auto 3.9 % (2.6-8.5); Neutrophils Absolute Auto 12.9 K/mm3 (1.3-6.7); Platelet Count Result 144 k/mm3 (150-375); Red Blood Count 3.05 M/mm3 (4.2-5.4); Red Cell Distribution Width 17.3 % (11.5-14.5); White Blood Count 14.5 K/mm3 (4.5-10.0)
[2024-01-27 13:03] LABS: Anisocytosis 1+; Hypochromasia 1+; Macrocytosis 1+ (NORMAL); Platelet Estimate Slightly Decreased (Adequate); Schistocytes None Seen
[2024-01-27 13:14] LABS: Alanine Aminotransferase 28 U/L (6-35); Albumin Level 3.6 g/dL (3.5-5.1); Alkaline Phosphatase 253 U/L (38-126); Anion Gap 10 mmol/L (4-12); Aspartate Amino Transferase 81 U/L (14-36); Bilirubin,Total 0.5 mg/dL (0.2-1.3); Blood Urea Nitrogen 44 mg/dL (7-17); Calcium 9.1 mg/dL (8.4-10.2); Carbon Dioxide 31 mmol/L (22-30); Chloride 93 mmol/L (98-107); Estimated Glomerular Filt Rate 8; Glucose 138 mg/dL (65-110); Magnesium 2.4 mg/dL (1.6-2.3); Potassium 4.2 mmol/L (3.4-5.0); Sodium 134 mmol/L (137-145)
[2024-01-27 16:48] LABS: Glucose Point of Care 106 mg/dl (65-105)
[2024-01-27] MEDS: HEPARIN SODIUM 1,000 UNITS/ML VIAL 1000 UNITS IV PUSH (19:24)
[2024-01-27] MEDS: HEPARIN SODIUM 1,000 UNITS/ML VIAL 500 UNITS IV PUSH (19:26)
[2024-01-27] MEDS: EPOETIN ALFA-EPBX 10,000 UNITS/ML VIAL 10000 UNITS IV PUSH (19:33)
[2024-01-27] MEDS: MIRTAZAPINE 15 MG TABLET PO (20:52)
[2024-01-27] MEDS: MELATONIN 3 MG TABLET PO (20:53)
[2024-01-27] MEDS: SERTRALINE HCL 50 MG TABLET PO (20:53)
[2024-01-27 23:12] LABS: Glucose Point of Care 104 mg/dl (65-105)
[2024-01-28] VITALS (9 sets, daily range): BP systolic 114–137; BP diastolic 55–67; PULSE 80–97; RESP 18–20; TEMP 36.2–36.9; O2SAT 95–100
[2024-01-28] MEDS: LEVOTHYROXINE SODIUM 112 MCG TABLET PO (05:41)
[2024-01-28 06:24] LABS: Basophils Percent Auto 0.3 % (0.2-1.2); Eosinophils Percent Auto 0.3 % (0-4.4); Hematocrit 27.7 % (37.0-47.0); Hemoglobin 8.1 g/dL (12.0-15.0); Immature Granulocyte Absolute 0.13 K/mm3 (0.00-0.031); Immature Granulocyte Percent A 1.2 % (0-0.5); Lymphocytes Absolute Auto 0.64 K/mm3 (0.9-3.2); Mean Corpuscular HGB Conc 29.2 g/dl (32-36); Mean Corpuscular Hemoglobin 29.9 pg (26-34); Mean Corpuscular Volume 102.2 fl (80-100); Monocytes Absolute Auto 0.5 K/mm3 (0.1-0.6); Monocytes Percent Auto 4.8 % (2.6-8.5); Neutrophils Absolute Auto 9.3 K/mm3 (1.3-6.7); Neutrophils Percent Auto 87.4 % (45.5-73.1); Platelet Count Result 131 k/mm3 (150-375); Red Blood Count 2.71 M/mm3 (4.2-5.4); Red Cell Distribution Width 17.1 % (11.5-14.5); White Blood Count 10.7 K/mm3 (4.5-10.0)
[2024-01-28 06:33] LABS: Alanine Aminotransferase 25 U/L (6-35); Alkaline Phosphatase 256 U/L (38-126); Anion Gap 7 mmol/L (4-12); Aspartate Amino Transferase 49 U/L (14-36); Bilirubin,Total 0.3 mg/dL (0.2-1.3); Blood Urea Nitrogen 19 mg/dL (7-17); Calcium 8.7 mg/dL (8.4-10.2); Carbon Dioxide 31 mmol/L (22-30); Chloride 98 mmol/L (98-107); Estimated Glomerular Filt Rate 15; Glucose 118 mg/dL (65-110); Magnesium 2.1 mg/dL (1.6-2.3); Potassium 4.1 mmol/L (3.4-5.0); Sodium 136 mmol/L (137-145)
[2024-01-28 07:33] LABS: Anisocytosis 2+; Hypochromasia 1+; Macrocytosis 1+ (NORMAL); Platelet Estimate Slightly Decreased (Adequate); Schistocytes None Seen
[2024-01-28] MEDS: MIRTAZAPINE 7.5 MG TABLET PO (08:32)
[2024-01-28] MEDS: ATORVASTATIN 40 MG TABLET PO (08:32)
[2024-01-28] MEDS: VITAMIN B CMPLX/VIT C/FOLIC AC 1 CAPSULE 1 CAP PO (08:32)
[2024-01-28] MEDS: EMPAGLIFLOZIN 10 MG TABLET BY MOUTH (08:32)
[2024-01-28] MEDS: DOCUSATE SODIUM 100 MG CAPSULE PO (08:32)
[2024-01-28] MEDS: AZITHROMYCIN 500 MG/NS 250 ML 500 MG/250 ML BAG 250 MG IVPB (08:38)
--- NOTE | 2024-01-28 09:19 | PM.CNNEP ---
Assessment and Plan Assessment and plan (1) ESRD (end stage renal disease) on dialysis: Code(s): N18.6 - End stage renal disease; Z99.2 - Dependence on renal dialysis Status: Acute Assessment and Plan: the patient has end-stage renal disease on dialysis 3 times a week. She is very compliant with her dialysis treatments. She has been getting her fluid off. Labs generally have been good including her phosphorus and albumin. The cause of the end-stage renal disease is thought to be due to hypertension and diabetes. She had a dialysis last evening and her next dialysis will be due on Monday. (2) Pulmonary infiltrate: Code(s): R91.8 - Other nonspecific abnormal finding of lung field Status: Acute Assessment and Plan: The patient has pulmonary infiltrates once again. She has been in and out of the hospital with pulmonary infiltrates and these always responded to diuretics. I do not see that she received any steroids during these hospital stay according to the discharge summaries. The infiltrates this time were multifocal leading to this CT. She had a CTA ruling out, embolic disease as a cause of these infiltrates. I do not think this is purely fluid because she does not have any swelling and the chest x-ray does not show fluid it shows patchy infiltrates. It is presumed that she has pneumonia again. Just to be complete I will check serology to make sure is not inflammatory cause of these infiltrates. In the meantime she is getting antibiotics. (3) Diabetes: Code(s): E11.9 - Type 2 diabetes mellitus without complications Status: Acute Assessment and Plan: The patient is on Accu-Cheks and these have (4) Hypertension: Code(s): I10 - Essential (primary) hypertension Status: Chronic Assessment and Plan: Blood pressure is doing well. (5) Primary localized osteoarthritis of knees, bilateral: Code(s): M17.0 - Bilateral primary osteoarthritis of knee Status: Acute Assessment and Plan: No new complaints here (6) Mixed hyperlipidemia: Code(s): E78.2 - Mixed hyperlipidemia Status: Acute Assessment and Plan: the patient is on atorvastatin History of Present Illness Reason for Consult Consult date: 01/28/24 Chief Complaint Chief complaint: Hypoxic Resp Failure/Community Acquired Pneumonia/ History of Present Illness Narrative: Gisele is a very pleasant 78-year-old lady who has multiple medical problems including end-stage renal disease on dialysis for about 5 years, diabetes, hypertension, arthritis, recurrent pneumonia, osteoarthritis, hypothyroidism, gout, and depression. The patient has been in and out of the hospital with pneumonia. She often has a component of volume overload as well because she does not eat when she has the pneumonia and she loses weight and therefore gains fluid. A few weeks ago the patient did have pneumonia and received antibiotics and improved. The dialysis unit removed appropriate amounts of fluid and so eventually her cough went away a couple of weeks ago. She has done well since then. I saw the patient on at dialysis and she was doing well. She was eating well and breathing well and had no swelling . She says that yesterday she started developing some shortness of breath with a cough. The shortness of breath continued to worsen so she was brought to the ER on Monday night. Later in the afternoon on Monday renal was notified of her admission and so dialysis was performed yesterday afternoon. She did well during the dialysis. Some fluid was removed but her blood pressure was a bit soft and so not as much as was hoped came off. Morning she says she is less short of breath but still has a cough. She does not feel very good today. Says she has been eating well. Her original kidney disease was from hypertension and diabetes as diagnosed by glenys lugo
[2024-01-28 09:54] LABS: Complement C3 99 mg/dL (88-165)
[2024-01-28 10:11] LABS: Erythrocyte Sedimentation Rate > 140 mm/hr (0-20)
--- NOTE | 2024-01-28 11:46 | PM.IMPN ---
Progress Note: A&P Assessment and Plan (1) Pneumonia: Code(s): J18.9 - Pneumonia, unspecified organism Status: Acute (2) Acute respiratory failure with hypoxia: Code(s): J96.01 - Acute respiratory failure with hypoxia Status: Acute (3) End stage renal disease on dialysis: Code(s): N18.6 - End stage renal disease; Z99.2 - Dependence on renal dialysis Status: Acute (4) Diabetes: Code(s): E11.9 - Type 2 diabetes mellitus without complications Status: Acute Plan 78-year-old female with a past medical history significant for end-stage renal disease on hemodialysis Monday, , Monday via left upper extremity AV fistula. She also has a history of [id number] type 2 diabetes, hypertension, hypothyroidism. Presents to the emergency department today with a chief complaint of shortness of breath. She states it feels similar to the last time she had pneumonia and she was admitted to this hospital at the beginning of November for community-acquired pneumonia. She stayed for several days and was discharged with antibiotic therapy. She is denying any chest pain, nauseous, vomiting, back pain, leg swelling. She underwent hemodialysis yesterday without any issues. It took off 1.5 L of fluid yesterday. She was noted to be significantly hypoxic on triage assessment to 74% on room air. She improved to 100% saturation on nasal cannula. Does not wear oxygen at home. Family is present at bedside and provided collateral formation telling me that they think she needs oxygen evaluation for home O2 use. Patient presently is resting comfortably on oxygen denies any ongoing dyspnea with the oxygen supplementation. No present chest discomfort or any other symptoms. No history of DVT or PE. Does not taking anticoagulation medications presently thyroid evaluation in the ED showed WBC of 15.2 hemoglobin of 9.5 platelet a 147 creatinine of 4.5 sodium 131 potassium was 4.3. D-dimer was significantly elevated. Influenza RSV and COVID swab was negative. BNP was more than 30,000. chest x-ray showed interstitial and airspace opacities in bilateral perihilar regions and left mid and lower lung zones which could represent pulmonary edema pneumonia atelectasis or some combination there of. Small left pleural effusion. Cardiomegaly enlargement of the central pulmonary consistent with pulmonary arterial hypertension. This was followed with/ CT a chest which showed multifocal pneumonia left worse than right no PE small left pleural effusion mild mediastinal and left supraclavicular lymphadenopathy likely reactive Acute hypoxic respiratory failure due to pneumonia multifocal pneumonia IV antibiotics as ordered End-stage renal disease on hemodialysis Monday nephrology has been consulted for inpatient hemodialysis Type 2 diabetes SSI Hypertension Hypothyroidism Hyperlipidemia Anxiety depression Osteoarthritis Gout DVT prophylaxis heparin subQ Code status full code Subjective Date/time seen: 01/28/24 11:46 Interval history: No overnight events. Dialyzed yesterday evening. No nausea vomiting. Breathing is better. Remains on 3 L oxygen. Review of Systems Review of Systems: All systems reviewed & are unremarkable except as noted in HPI and below Exam Narrative: GENERAL: Chronically ill-appearing but not in any acute distress, resting comfortably on nasal cannula oxygen HEAD: Normocephalic, atraumatic. EYES: PERRLA and EOMI. ENT: Nares clear, no rhinorrhea or epistaxis. Mucous membranes moist. NECK: Supple. CHEST: Coarse breath sounds bilaterally but no respiratory distress. HEART: Regular rate and rhythm. No murmur heard. Normal peripheral pulses. ABDOMEN: Soft, nondistended, nontender, No rigidity or guarding EXTREMITIES: Normal range of motion. 1+ peripheral edema SKIN: Warm, dry, no rash. NEURO: No focal deficits. Alert and orientedx3 PSYCH: Normal mood and af
[2024-01-28] MEDS: SERTRALINE HCL 50 MG TABLET PO (20:40)
[2024-01-28] MEDS: MIRTAZAPINE 15 MG TABLET PO (20:40)
[2024-01-28] MEDS: MELATONIN 3 MG TABLET PO (20:40)
[2024-01-29] VITALS (8 sets, daily range): BP systolic 135; BP diastolic 59; PULSE 81–108; RESP 18; TEMP 36.6; O2SAT 87–100
[2024-01-29] MEDS: LEVOTHYROXINE SODIUM 112 MCG TABLET PO (06:01)
[2024-01-29 06:17] LABS: Basophils Absolute Auto 0.1 K/mm3 (0.0-0.1); Basophils Percent Auto 0.6 % (0.2-1.2); Eosinophils Percent Auto 0.5 % (0-4.4); Hematocrit 27.9 % (37.0-47.0); Hemoglobin 8.1 g/dL (12.0-15.0); Immature Granulocyte Absolute 0.18 K/mm3 (0.00-0.031); Immature Granulocyte Percent A 2.2 % (0-0.5); Lymphocytes Absolute Auto 0.83 K/mm3 (0.9-3.2); Mean Corpuscular Hemoglobin 29.9 pg (26-34); Mean Platelet Volume 9.5 fl (7.4-10.4); Monocytes Absolute Auto 0.5 K/mm3 (0.1-0.6); Monocytes Percent Auto 5.8 % (2.6-8.5); Neutrophils Absolute Auto 6.8 K/mm3 (1.3-6.7); Neutrophils Percent Auto 80.9 % (45.5-73.1); Platelet Count Result 140 k/mm3 (150-375); Red Blood Count 2.71 M/mm3 (4.2-5.4); White Blood Count 8.3 K/mm3 (4.5-10.0)
[2024-01-29 06:32] LABS: Alanine Aminotransferase 26 U/L (6-35); Alkaline Phosphatase 268 U/L (38-126); Anion Gap 8 mmol/L (4-12); Aspartate Amino Transferase 44 U/L (14-36); Bilirubin,Total 0.3 mg/dL (0.2-1.3); Blood Urea Nitrogen 29 mg/dL (7-17); Calcium 9.2 mg/dL (8.4-10.2); Carbon Dioxide 30 mmol/L (22-30); Chloride 98 mmol/L (98-107); Estimated Glomerular Filt Rate 10; Glucose 106 mg/dL (65-110); Magnesium 2.2 mg/dL (1.6-2.3); Phosphorus 4.4 mg/dL (2.5-4.5); Potassium 4.1 mmol/L (3.4-5.0); Sodium 136 mmol/L (137-145)
[2024-01-29 06:55] LABS: Anisocytosis 2+; Hypochromasia 2+; Macrocytosis 1+ (NORMAL); Platelet Estimate Decreased (Adequate); Schistocytes None Seen
[2024-01-29 08:03] LABS: Glucose Point of Care 112 mg/dl (65-105)
--- NOTE | 2024-01-29 08:12 | PM.IMPN ---
Progress Note: A&P Assessment and Plan (1) Pneumonia: Code(s): J18.9 - Pneumonia, unspecified organism Status: Acute (2) Acute respiratory failure with hypoxia: Code(s): J96.01 - Acute respiratory failure with hypoxia Status: Acute (3) End stage renal disease on dialysis: Code(s): N18.6 - End stage renal disease; Z99.2 - Dependence on renal dialysis Status: Acute (4) Diabetes: Code(s): E11.9 - Type 2 diabetes mellitus without complications Status: Acute Plan 78-year-old female with a past medical history significant for end-stage renal disease on hemodialysis Monday, , Monday via left upper extremity AV fistula. She also has a history of [id number] type 2 diabetes, hypertension, hypothyroidism. Presents to the emergency department today with a chief complaint of shortness of breath. She states it feels similar to the last time she had pneumonia and she was admitted to this hospital at the beginning of November for community-acquired pneumonia. She stayed for several days and was discharged with antibiotic therapy. She is denying any chest pain, nauseous, vomiting, back pain, leg swelling. She underwent hemodialysis yesterday without any issues. It took off 1.5 L of fluid yesterday. She was noted to be significantly hypoxic on triage assessment to 74% on room air. She improved to 100% saturation on nasal cannula. Does not wear oxygen at home. Family is present at bedside and provided collateral formation telling me that they think she needs oxygen evaluation for home O2 use. Patient presently is resting comfortably on oxygen denies any ongoing dyspnea with the oxygen supplementation. No present chest discomfort or any other symptoms. No history of DVT or PE. Does not taking anticoagulation medications presently thyroid evaluation in the ED showed WBC of 15.2 hemoglobin of 9.5 platelet a 147 creatinine of 4.5 sodium 131 potassium was 4.3. D-dimer was significantly elevated. Influenza RSV and COVID swab was negative. BNP was more than 30,000. chest x-ray showed interstitial and airspace opacities in bilateral perihilar regions and left mid and lower lung zones which could represent pulmonary edema pneumonia atelectasis or some combination there of. Small left pleural effusion. Cardiomegaly enlargement of the central pulmonary consistent with pulmonary arterial hypertension. This was followed with/ CT a chest which showed multifocal pneumonia left worse than right no PE small left pleural effusion mild mediastinal and left supraclavicular lymphadenopathy likely reactive Acute hypoxic respiratory failure due to pneumonia multifocal pneumonia IV antibiotics as ordered leukocytosis continues to improve To resolution. End-stage renal disease on hemodialysis Monday nephrology has been consulted for inpatient hemodialysis Type 2 diabetes SSI Hypertension Hypothyroidism Hyperlipidemia Anxiety depression Osteoarthritis Gout DVT prophylaxis heparin subQ Code status full code Subjective Date/time seen: 01/29/24 08:12 Interval history: No overnight events. Patient remains on 3 L oxygen the saturations are quite well. Feeling better. Review of Systems Review of Systems: All systems reviewed & are unremarkable except as noted in HPI and below Exam Narrative: GENERAL: Chronically ill-appearing but not in any acute distress, resting comfortably on nasal cannula oxygen HEAD: Normocephalic, atraumatic. EYES: PERRLA and EOMI. ENT: Nares clear, no rhinorrhea or epistaxis. Mucous membranes moist. NECK: Supple. CHEST: Coarse breath sounds bilaterally but no respiratory distress. HEART: Regular rate and rhythm. No murmur heard. Normal peripheral pulses. ABDOMEN: Soft, nondistended, nontender, No rigidity or guarding EXTREMITIES: Normal range of motion. 1+ peripheral edema SKIN: Warm, dry, no rash. NEURO: No focal deficits. Alert and reed
[2024-01-29] MEDS: VITAMIN B CMPLX/VIT C/FOLIC AC 1 CAPSULE 1 CAP PO (08:20)
[2024-01-29] MEDS: ATORVASTATIN 40 MG TABLET PO (08:20)
[2024-01-29] MEDS: EMPAGLIFLOZIN 10 MG TABLET BY MOUTH (08:20)
[2024-01-29] MEDS: MIRTAZAPINE 7.5 MG TABLET PO (08:20)
[2024-01-29] MEDS: AZITHROMYCIN 500 MG/NS 250 ML 500 MG/250 ML BAG 250 MG IVPB (10:03)
--- NOTE | 2024-01-29 10:44 | P.PNNP_ITS ---
Progress Note: A&P Assessment and Plan (1) End stage renal disease: Code(s): N18.6 - End stage renal disease Status: Chronic Assessment and Plan: * HD tomorrow * continue T/T/S dialysis schedule while hospitalized * follow electrolytes, volume status, and clearance (2) Acute respiratory failure with hypoxia: Code(s): J96.01 - Acute respiratory failure with hypoxia Status: Acute Assessment and Plan: * slow improvement * noted hypoxia on presentation * due to pneumonia and possibly a component of volume overload * continue antibiotics. * remove fluid as tolerated with HD as tolerated (3) Pneumonia: Qualifiers: Laterality: bilateral Lung location: unspecified part of lung Pneumonia type: due to unspecified organism Qualified Code(s): J18.9 - Pneumonia, unspecified organism Code(s): J18.9 - Pneumonia, unspecified organism Status: Acute Assessment and Plan: * as suggested by admission symptoms (SOB + productive cough + hypoxia) * CXR and CT of chest results noted * on antibiotics * on supplemental oxygen - wean as tolerated * continue supportive therapy (4) Anemia: Code(s): D64.9 - Anemia, unspecified Status: Chronic Assessment and Plan: * due to ESRD and likely worsened by acute infection * Epogen with HD * follow H/H (5) Hypertension: Code(s): I10 - Essential (primary) hypertension Status: Chronic Assessment and Plan: * reasonable control * follow trend of hemodynamics (6) Type 2 diabetes mellitus with diabetic polyneuropathy: Qualifiers: Diabetes mellitus ferry terminal 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 Subjective Date/time seen: 01/29/24 10:44 Interval history: Follow-up for end stage renal disease on hemodialysis. Chart reviewed -- assuming care from Dr. Freeman; breathing/respiratory status seems to be doing better; weaning of supplemental oxygen being attempted by nursing; no apparent distress voiced at the time of my visit; no other issues/events overnight or earlier this morning. Exam Narrative: General: elderly female in NAD Heart: normal S1 and S2; no rub Lungs: coarse breath sounds Abdomen: soft, nontender, nondistended, positive bowel sounds Extremities: trace - 1+ bilateral edema (chronic) in LEs Skin: warm and dry Objective Data Vital Signs Vital Signs: Vital Signs Temp Pulse Resp BP Pulse Ox O2 Del Method O2 Flow Rate 01/29/24 10:35 106 H 95 Room Air 01/29/24 08:02 85 01/29/24 08:20 Room Air 01/29/24 04:00 81 01/29/24 05:44 97.8 F 81 18 135/59 L 100 01/29/24 00:00 82 01/28/24 21:38 99 Nasal Cannula 3 01/28/24 20:00 91 01/28/24 21:02 98.5 F 80 18 137/67 100 01/28/24 14:00 97.4 F L 97 20 133/62 98 Intake/Output Intake/Output: Intake & Output 01/26/24 01/27/24 01/28/24 01/29/24 23:59 23:59
--- NOTE | 2024-01-29 10:44 | PM.PNNEP ---
Progress Note: A&P Assessment and Plan (1) End stage renal disease: Code(s): N18.6 - End stage renal disease Status: Chronic Assessment and Plan: HD tomorrow continue T/T/S dialysis schedule while hospitalized follow electrolytes, volume status, and clearance (2) Acute respiratory failure with hypoxia: Code(s): J96.01 - Acute respiratory failure with hypoxia Status: Acute Assessment and Plan: slow improvement noted hypoxia on presentation due to pneumonia and possibly a component of volume overload continue antibiotics. remove fluid as tolerated with HD as tolerated (3) Pneumonia: Qualifiers: Laterality: bilateral Lung location: unspecified part of lung Pneumonia type: due to unspecified organism Qualified Code(s): J18.9 - Pneumonia, unspecified organism Code(s): J18.9 - Pneumonia, unspecified organism Status: Acute Assessment and Plan: as suggested by admission symptoms (SOB + productive cough + hypoxia) CXR and CT of chest results noted on antibiotics on supplemental oxygen - wean as tolerated continue supportive therapy (4) Anemia: Code(s): D64.9 - Anemia, unspecified Status: Chronic Assessment and Plan: due to ESRD and likely worsened by acute infection Epogen with HD follow H/H (5) Hypertension: Code(s): I10 - Essential (primary) hypertension Status: Chronic Assessment and Plan: reasonable control follow trend of hemodynamics (6) Type 2 diabetes mellitus with diabetic polyneuropathy: Qualifiers: Diabetes mellitus chcf insulin use: without chcf use Qualified Code(s): E11.42 - Type 2 diabetes mellitus with diabetic polyneuropathy Code(s): E11.42 - Type 2 diabetes mellitus with diabetic polyneuropathy Status: Chronic Assessment and Plan: follow accu-cheks glycemic control per hospitalists Will continue to follow. Subjective Date/time seen: 01/29/24 10:44 Interval history: Follow-up for end stage renal disease on hemodialysis. Chart reviewed -- assuming care from Dr. Freeman; breathing/respiratory status seems to be doing better; weaning of supplemental oxygen being attempted by nursing; no apparent distress voiced at the time of my visit; no other issues/events overnight or earlier this morning. Exam Narrative: General: elderly female in NAD Heart: normal S1 and S2; no rub Lungs: coarse breath sounds Abdomen: soft, nontender, nondistended, positive bowel sounds Extremities: trace - 1+ bilateral edema (chronic) in LEs Skin: warm and dry Objective Data Vital Signs Vital Signs: Vital Signs Temp Pulse Resp BP Pulse Ox O2 Del Method O2 Flow Rate 01/29/24 10:35 106 H 95 Room Air 01/29/24 08:02 85 01/29/24 08:20 Room Air 01/29/24 04:00 81 01/29/24 05:44 97.8 F 81 18 135/59 L 100 01/29/24 00:00 82 01/28/24 21:38 99 Nasal Cannula 3 01/28/24 20:00 91 01/28/24 21:02 98.5 F 80 18 137/67 100 01/28/24 14:00 97.4 F L 97 20 133/62 98 Intake/Output Intake/Output: Intake & Output 01/26/24 01/27/24 01/28/24 01/29/24 23:59 23:59 23:59 23:59 Intake Total 150 1620 1660 490 Output Total 500 2 Balance 150 1120 1658 490 Meds/Results Medications: Active Medications Generic Name Dose Route Start Last Admin Trade Name Freq PRN Reason Stop Dose Admin Atorvastatin Calcium 40 mg 01/27/24 09:00 01/29/24 08:20 Atorvastatin 40 Mg Tablet PO 40 mg DAILY ARLYN Administration Benzonatate 200 mg 01/27/24 00:57 Benzonatate 100 Mg Capsule PO TID PRN cough Calcium Acetate 667 mg 01/27/24 00:35 Calcium Acetate 667 Mg Tablet PO BIDWM PRN Electrolyte Replenishment Docusate Sodium 100 mg 01/27/24 09:00 01/29/24 08:26 Docusate Sodium 100 Mg Capsule PO Not Given BID ARLYN E
[2024-01-29 11:38] LABS: Glucose Point of Care 129 mg/dl (65-105)
--- NOTE | 2024-01-29 12:11 | HOMEO2EVAL ---
Evaluation was performed at [facility] Home Oxygen Evaluation RC: Home Oxygen (O2) Evaluation Start: 01/29/24 11:38 Freq: ONCE Status: Active Protocol: RPE Activity Type Activity Date Activity User E-sign Co-sign Detail Recorded Client Recorded Date Recorded By Document 01/29/24 11:55 KRM [email or web address] 01/29/24 12:11 KRM Document 01/29/24 12:00 [email or web address] [email or web address] 01/29/24 12:11 KRM Document 01/29/24 12:02 [email or web address] [email or web address] 01/29/24 12:11 KRM Document 01/29/24 12:05 [email or web address] [email or web address] 01/29/24 12:11 KRM 01/29/24 01/29/24 01/29/24 11:55 12:00 12:02 Home O2 Evaluation [Oxygen] -Test Phase Resting Exercise Exercise -Oxygen Delivery Room Air Room Air Nasal Cannula -Oxygen Flow Rate (L/min) 1 [Pulse Oximetry] -Pulse Oximetry (90-100 %) 95 87 L 89 L [Pulse Rate] -Pulse Rate (60-100 beats/min) 106 H 108 H 105 H [Evaluation] -Activity Tolerance Fair Fair [Exercise] -Ambulation Distance (feet) -Ambulation Distance (meters) [Comments] -Home Oxygen Evaluation Comments [Charges] -Evaluation Charges 01/29/24 12:05 Home O2 Evaluation [Oxygen] -Test Phase Exercise -Oxygen Delivery Nasal Cannula -Oxygen Flow Rate (L/min) 2 [Pulse Oximetry] -Pulse Oximetry (90-100 %) 91 [Pulse Rate] -Pulse Rate (60-100 beats/min) 100 [Evaluation] -Activity Tolerance Fair [Exercise] -Ambulation Distance (feet) 200 -Ambulation Distance (meters) 60.95 [Comments] -Home Oxygen Evaluation Comments pt. requires 2lpm with activity. [Charges] -Evaluation Charges O2 Evaluation by Pulmonary
--- NOTE | 2024-01-29 13:59 | PM.DS ---
DS: Admitting Diagnosis Discharge Date 01/29/2024 Admitting Diagnosis shortness of breath DS: Discharge Diagnosis Discharge Diagnosis (1) Pneumonia: Code(s): J18.9 - Pneumonia, unspecified organism Status: Acute (2) Acute respiratory failure with hypoxia: Code(s): J96.01 - Acute respiratory failure with hypoxia Status: Acute (3) End stage renal disease on dialysis: Code(s): N18.6 - End stage renal disease; Z99.2 - Dependence on renal dialysis Status: Acute (4) Diabetes: Code(s): E11.9 - Type 2 diabetes mellitus without complications Status: Acute DS: Summary Hospital Course Hospital Course: 78-year-old female with a past medical history significant for end-stage renal disease on hemodialysis Monday, , Monday via left upper extremity AV fistula. She also has a history of ibz-pqysrvz-vfkaaswpe type 2 diabetes, hypertension, hypothyroidism. Presents to the emergency department today with a chief complaint of shortness of breath. She states it feels similar to the last time she had pneumonia and she was admitted to this hospital at the beginning of November for community-acquired pneumonia. She stayed for several days and was discharged with antibiotic therapy. She is denying any chest pain, nauseous, vomiting, back pain, leg swelling. She underwent hemodialysis yesterday without any issues. It took off 1.5 L of fluid yesterday. She was noted to be significantly hypoxic on triage assessment to 74% on room air. She improved to 100% saturation on nasal cannula. Does not wear oxygen at home. Family is present at bedside and provided collateral formation telling me that they think she needs oxygen evaluation for home O2 use. Patient presently is resting comfortably on oxygen denies any ongoing dyspnea with the oxygen supplementation. No present chest discomfort or any other symptoms. No history of DVT or PE. Does not taking anticoagulation medications presently thyroid evaluation in the ED showed WBC of 15.2 hemoglobin of 9.5 platelet a 147 creatinine of 4.5 sodium 131 potassium was 4.3. D-dimer was significantly elevated. Influenza RSV and COVID swab was negative. BNP was more than 30,000. chest x-ray showed interstitial and airspace opacities in bilateral perihilar regions and left mid and lower lung zones which could represent pulmonary edema pneumonia atelectasis or some combination there of. Small left pleural effusion. Cardiomegaly enlargement of the central pulmonary consistent with pulmonary arterial hypertension. This was followed with/ CT a chest which showed multifocal pneumonia left worse than right no PE small left pleural effusion mild mediastinal and left supraclavicular lymphadenopathy likely reactive Acute hypoxic respiratory failure due to pneumonia . Home oxygen evaluation was done by the time of discharge and required 2 L with activity. Oxygen was arranged for discharge. Multifocal pneumonia IV antibiotics as ordered leukocytosis continues to improve To resolution. switch antibiotic to oral End-stage renal disease on hemodialysis Monday nephrology has been consulted for inpatient hemodialysis . Continue hemodialysis as previously ordered at [facility] Type 2 diabetes SSI Hypertension Hypothyroidism Hyperlipidemia Anxiety depression Osteoarthritis Gout DVT prophylaxis heparin subQ Code status full code Time Spent with Patient Time attestation: Total time spent providing and/or coordinating discharge services: 40 minutes Exam Narrative: GENERAL: Chronically ill-appearing but not in any acute distress, resting comfortably on nasal cannula oxygen HEAD: Normocephalic, atraumatic. EYES: PERRLA and EOMI. ENT: Nares clear, no rhinorrhea or epistaxis. Mucous membranes moist. NECK: Supple. CHEST: Coarse breath sounds bilaterally but no respiratory distress. HEART: Regular rate and rhythm. No murmur heard. Normal peripheral pulses.
--- NOTE | 2024-01-29 14:01 | PCRCNOTE ---
PT. REQUIRES 2LPM O2 WITH ACTIVITY. SET PT. UP WITH [employer] [facility]. TANK IN ROOM.
--- NOTE | 2024-01-29 14:21 | PC.NURSE ---
Pt is A&O4 female who has participated and contributed in plan of care. Pt had home O2 eval done that shows pt needs 2L O2 with activity. Home O2 was set up by RT. Discharge instructions were given to pt and family and they verbalized understanding. IV was removed tip intact. Pt expresses no needs and has been monitored for any changes in status while here. Pt wheeled down to vehicle at discharge.
[2024-01-31 14:49] LABS: Complement Total CH50 >60 U/mL (31-60)
[2024-02-01 10:12] LABS: ANCA Screen NEGATIVE (NEGATIVE)
[2024-02-01 17:54] LABS: Mycoplasma IgM Antibody Titer 70 U/mL
[2024-02-08 15:03] LABS: Anti Glomerular Basement Memb <1.0 AI
== END 2024-01-29 14:15 | disposition home or self-care (01) | DRG 193 ==
LOC: ANHED 18:49 → ANH3MEDSUR 19:25
PROVIDERS: Emergency Medicine; Internal Medicine Nephrology; Student in an Organized Health Care Education/Training Program; Admitting Provider Internal Medicine; Emergency Provider Student in an Organized Health Care Education/Training Program; PCP Family Medicine Adolescent Medicine; Visit Provider Internal Medicine
DX: J18.9 Pneumonia, unspecified organism (principal); J96.01 Acute respiratory failure with hypoxia; N18.6 End stage renal disease; I12.0 Hypertensive chronic kidney disease with stage 5 chronic kidney disease or end stage renal disease; Z99.2 Dependence on renal dialysis; E11.22 Type 2 diabetes mellitus with diabetic chronic kidney disease; E11.42 Type 2 diabetes mellitus with diabetic polyneuropathy; E03.9 Hypothyroidism, unspecified; M19.90 Unspecified osteoarthritis, unspecified site; M10.9 Gout, unspecified; M17.0 Bilateral primary osteoarthritis of knee; F32.A Depression, unspecified; Z20.822 Contact with and (suspected) exposure to COVID-19
CPT/HCPCS: 36415; 71045; 71275; 80053; 80069; 82948; 83520; 83735; 83880; 84145; 85025; 85380; 85652; 86036; 86038; 86039; 86160; 86162; 86225; 86738; 87040; 87636; 87641; 93005; 94618; 96365; 96367; 97110; 97116; 97161; 97165; 99285; A9270; G0257; J0456; J0696; J1644; J7030; Q5105; Q9967

== ENCOUNTER 2024-06-13 09:40 | Inpatient (IN) | payer MEDICARE, SELFPAY ==
[2024-06-13] VITALS (24 sets, daily range): BP systolic 97–201; BP diastolic 45–111; PULSE 51–88; RESP 18–20; TEMP 36.6–37; O2SAT 95–100
--- NOTE | ~2024-06-13 | CT_ITS ---
EXAMINATION: CTA chest PE protocol DATE: 06/13/2024 16:22 INDICATION: Shortness of breath, hypoxia and elevated d-dimer. TECHNIQUE: Computed tomography (CT) pulmonary angiogram of the chest was performed with 100 mL Omnipa que-350 intravenous contrast. Additional 3D reconstructions utilizing coronal maximum intensity proje ction (MIP) were performed. The dose-length product was 520.33 mGy-cm. COMPARISON: 01/26/2024 FINDINGS: No pulmonary embolism. Again seen is enlargement of the central pulmonary arteries consistent with pu lmonary arterial hypertension. Scattered smooth septal line thickening in both lungs most prominent p eripherally in the upper lungs consistent with mild pulmonary edema. Scattered patchy consolidation w ith air bronchograms in both lungs along with a few smaller more nodular appearing opacities with sim ilar appearance but different distribution than on the prior study most consistent with multifocal pn eumonia. There is associated scattered mucous plugging in the bronchi. No pleural effusion. Moderate cardiomegaly with right-sided predominance. Atherosclerotic coronary artery calcifications. Aortic va lve calcific is. Thoracic aorta is normal in caliber. Unchanged mediastinal and supraclavicular lymph adenopathy which is likely reactive. Scattered hepatic and splenic calcifications consistent with old granulomatous disease. There is a small amount of perihepatic ascites. 2 cm left adrenal mass unchan ged since 10/08/2017 most consistent with an adenoma. Moderate thoracic spondylosis with bridging osteo phytes at multiple levels consistent with diffuse idiopathic skeletal hyperostosis (DISH). IMPRESSION: 1. No pulmonary embolism. 2. Combination of mild pulmonary edema and multifocal pneumonia. 3. Cardiomegaly and enlargement of the central pulmonary arteries consistent with pulmonary arterial hypertension. 4. Unchanged mediastinal and left supraclavicular lymphadenopathy which is likely reactive. Reviewed, dictated and finalized at location A. P TECHNOLOGIST IMPRESSION: 1. No pulmonary embolism. 2. Combination of mild pulmonary edema and multifocal pneumonia. 3. Cardiomegaly and enlargement of the central pulmonary arteries consistent wi th pulmonary arterial hypertension. 4. Unchanged mediastinal and left supraclavicular lymphadenopathy which is like ly reactive.
--- NOTE | ~2024-06-13 | XR_ITS ---
EXAMINATION: XR chest 1V portable DATE: 06/13/2024 15:42 INDICATION: Hypoxia TECHNIQUE: frontal view of the chest was obtained. COMPARISON: Chest radiograph and CT dated 01/26/2024 FINDINGS: Diffuse interstitial and mild airspace opacities throughout both lungs. No pleural effusion or pneumo thorax. Cardiomegaly. Enlargement of the central pulmonary arteries consistent with pulmonary arteria l hypertension. IMPRESSION: 1. Diffuse bilateral interstitial and airspace opacities most likely mild to moderate pulmonary edema related to congestive heart failure with differential including pneumonia. 2. Cardiomegaly with enlargement of the central pulmonary arteries consistent with pulmonary arterial hypertension. Reviewed, dictated and finalized at location A. CINE TEACHER IMPRESSION: 1. Diffuse bilateral interstitial and airspace opacities most likely mild to mo derate pulmonary edema related to congestive heart failure with differential in cluding pneumonia. 2. Cardiomegaly with enlargement of the central pulmonary arteries consistent w ith pulmonary arterial hypertension.
--- NOTE | ~2024-06-13 | XR_ITS ---
EXAMINATION: XR chest 1V portable DATE: 06/18/2024 08:33 INDICATION: Hypoxia. TECHNIQUE: A single frontal view of the chest was obtained. COMPARISON: Chest single view 06/13/2024, chest CT 06/13/2024 FINDINGS: There is a diffuse interstitial pattern in the lungs. There are airspace opacities at the l vijaya bases, right worse than left. No pneumothorax. Cardiomegaly is noted. There is a vascular stent i n left upper limb. IMPRESSION: 1. Improved diffuse lung disease, likely a combination of pneumonia and mild pulmonary edema. 2. Cardiomegaly. Reviewed, dictated and finalized at location A. R NOVELTY MAKER IMPRESSION: 1. Improved diffuse lung disease, likely a combination of pneumonia and mild pu lmonary edema. 2. Cardiomegaly.
--- OUTSIDE RECORDS SUMMARY | 2024-06-13 09:50 | XMS_ITS | Continuity of Care Document ---
Author Organization [facility] Address [address] [place] [address] [address] [place] [address] Phone Care Team Providers Care Internal Communications Manager Name Role Phone Alexa Harley Unavailable Unavailable Procedures Procedure Date Office/outpatient Visit, Est Eye Exam Established Pt Advance Directives Directive Yes / No Effective Date File Name No Information Encounters Encounter Description Practice Location Reason(s) For Visit Diagnoses Date Provider Providers Copied on Encounter Office/outpat ient Visit, Est [facility], [address] [place] [address] [address], [place], [place], [id number], tel:[phone] [facility] No Information [address] , [address], [place], [place], [facility], [place]. tel:[phone] [facility], [address] [place] [address] [address], [place], [place], [id number], tel:[phone] [facility] No Information Apr-[address] , [address], [place], [place], [facility], [place]. tel:[phone] Family History Family Member Type Diagnosis Age At Onset No Information Payers Payer name Insurance type Covered republican ID Authoriza tion(s) No Information Social History Type Description Quantity Date Captured Comments Sex Female Smoking Status No Information Chief Complaint And Reason For Visit No Information Reason For Referral Reason For Referral No Information History Of Present Illness Encounter Date Complaint History Of Prese nt Illness No Information Functional Status Date Functional Assessmen t No Information Instructions Date Instruction Additional Infor mation No Information Assessments Type Assessment Date No Information Patient Care Teams Name Effective Dates (start - stop) Status Members No Information
--- OUTSIDE RECORDS SUMMARY | 2024-06-13 09:50 | XMS_ITS | Referral Summary ---
Author Organization [facility] Address [address] [place] [address] Care Team Providers Care Lamps Tester And Inspector Name Role Phone Shahid Powell MD Primary Care Provider + Source Comments [facility],non-[facility] Affiliates and Associated Physician Practices is amultiple site organization consisting of ambulatory clinics and hospital sitesin [place], [place], [place] and [place]. This disclosure is being madepursuant to the Care Everywhere program and may not contain all information available regarding this patient. Last updated 18.[facility] Encounters Date Type Department Care Team Description 03/20/2024 Travel 03/20/2024 1:32 PM HISTOLOGY TEACHER - 03/20/2024 11:59 PM HISTOLOGY TEACHER Hospital Encounter [facility] Vascular Services [address] [place] [address], [place] [phone] Lucio Singh MD Javed, DO Richard Fung Thomas B, MD Majeed, M. Fazal, MD Halverson, Lewis C, MD Oak, David Nicole MD Discharge Disposition: Home or Self Care from Last 3 Months Allergies Active Allergy Reactions Criticality Noted Date Comments Ibuprofen GI Discomfort Low 06/16/2018 Medications * Be aware that medications may not be up to date on this document. Alwaysverify current medications with the patient. Medication Sig Dispensed Refills Start Date End Date Status atorvastatin (LIPITOR) 40 MG tablet Take 1 (one) tablet by mouth once daily 09/12/2018 Active levothyroxine (SYNTHROID) 112 MCG tablet Take 1 (one) tablet by mouth once daily 07/16/2018 Active TRADJENTA 5 MG tablet Take 1 (one) tablet by mouth once daily 07/17/2018 Active traMADol (ULTRAM) 50 MG tablet Take 2 (two) tablets by mouth every 4 hours as needed 09/12/2018 Active pantoprazole EC (PROTONIX) 40 MG tablet Take 1 (one) tablet by mouth at bedtime Active ondansetron, disintegrating, (ZOFRAN ODT) 4 MG tablet Take 1 (one) tablet by mouth as needed 6 09/28/2018 Active MELATONIN PO Take 10 mg by mouth at bedtime Active mirtazapine (REMERON) 15 MG tablet Take 1 (one) tablet by mouth at bedtime 09/05/2019 Active sertraline (ZOLOFT) 50 MG tablet Take 1 (one) tablet by mouth once daily 11/26/2019 Active Cholecalciferol (VITAMIN D3) 10 MCG (400 UNIT) tablet Take 5 (five) tablets by mouth once daily Active calcium acetate (PHOSLO) 667 MG capsule Take 1 (one) capsule by mouth 3 times daily Also one each snack 09/21/2020 Active B Feznati-J-Ilmct Acid (TRIPHROCAPS) 1 MG CAPS 10/19/2020 Active docusate sodium (Colace) 100 MG capsule Take 1 (one) capsule by mouth 2 times daily Active calcium-vitamin D (Caltrate Plus D) 600-200 MG-UNIT tablet Take 1 (one) tablet by mouth once daily Active vitamin E (Tocopheryl) 400 UNIT capsule Take 1 (one) capsule by mouth once daily Active zinc sulfate (Zincate) 220 (50 ZN) MG capsule Take 50 mg by mouth once daily Active ferrous sulfate 325 (65 FE) MG tablet Take 45 mg by mouth once daily Slow Release Active melatonin 3 MG tablet Take 10 mg by mouth at bedtime Active Probiotic Product (TRUBIOTICS DIGEST + [facility] PO) Take 1 tablet by mouth once daily Active dicyclomine (Bentyl) 10 MG capsule Take 1 (one) capsule by mouth 2 times daily 08/02/2023 Active Active Problems Problem Noted Date Diagnosed Date Encounter regarding vascular access for dialysis for end-stage renal disease 02/07/2022 Confusion 10/06/2019 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 ESRD (end stage renal disease) 10/04/2018 Inadequate flow of hemodialysis AV fistula Complication of arteriovenous dialysis fistula Clotted dialysis access Immunizations Name Administration Dates Next Due Covid Pfizer primary monoval ent 12+ yr 0.3mL Purple cap 07/24/2020,07/04/2020 HEP B VACCINE, ADULT 3 DOSE 01/31/2020,1 05/29/2018,11/23/2018,2018,09/28/2018 PNEUMOCOCCAL PPV VACCINE 05/08/2017 Social History Tobacco Use Types Packs/Day Years Used Date Smoking Tobacco: Never Smokeless Tobacco: Never Alcohol Use Standard Drinks/Week Comments No 0 (1 standard drink = 0.6 oz pur e alcohol) Sex and Gender Information Value Date Recorded Sex Assigned at Not on file Gender Identity Not on file Sexual Orientation Not on file Last Filed Vital Signs Vital Sign Reading Time Taken Comments Blood Pressure 141/80 03/20/2024 2:25 PM HISTOLOGY TEACHER Pulse 93 03/20/2024 2:25 PM HISTOLOGY TEACHER Temperature 36.6 C (97.8 F) 03/20/2024 1:47 PM HISTOLOGY TEACHER Respiratory Rate 10 03/20/2024 2:25 PM HISTOLOGY TEACHER Oxygen Saturation 100% 03/20/2024 2:25 PM HISTOLOGY TEACHER Inhaled Oxygen Concentration - - Weight 61.2 kg (135 lb) 03/20/2024 1:47 PM HISTOLOGY TEACHER Height 139.7 cm (4' 7 ) 03/20/2024 1:47 PM HISTOLOGY TEACHER Body Mass Index 31.38 03/20/2024 1:47 PM HISTOLOGY TEACHER Functional Status Functional Status Response Date of Assess ment Is person deaf or have serious hearing difficult y? No 10/04/2018 Is person blind or have serious difficulty seein g? No 10/04/2018 Does person have serious dif ficulty walking/climbing stairs? Yes 10/04/2018 Does person have difficulty dressing/bathing? Ye s 10/04/2018 Does person have difficulty doing errands alone? Yes 10/04/2018 Cognitive Status Response Date of Assessm ent Does person have difficulty concentrating/remembering/making decisions? No 10/04/2018 Plan of Treatment Upcoming Encounters Date Type Department Care Team (Late st Contact Info) Description 07/17/2024 2:45 PM CDT Appointment [facility] Health Vascular Services [address], [address] [place] [address] [place] [address] [facility] [address] [place] [address] [place] [address] [facility] [address] [place] [address] [place] [address] [facility] [address] [place] [address] Calvin Lynne MD [address] [place] [address] Ronald Rosas MD [address] [place] [address] [place] [id number] [address] Medical Devices Implanted Type Area Awning Installer Device Identifier Shelf Expiration Date Model / Serial / Lot Graft Vasc 4-7mm 40cm Grtx Std Wl Tpr Ln - [id number] Implanted:Qty: 1 on 10/02/2019 by Lucio Singh MD at [facility] Left: [employer] 12/03/2023 [id number] / [id number] / Procedures Procedure Name Priority Date/Time Associated Diagnosis Comments CARDIAC RHYTHM STRIP ORDER 03/21/2024 6:24 PM HISTOLOGY TEACHER IR ANGIO AV SHUNT IMAGING Routine 03/20/2024 2:18 PM HISTOLOGY TEACHER Encounter regarding vascular access for dialysis for end-stage renal disease (HCC) from Last 3 Months Results * CARDIAC RHYTHM STRIP ORDER (03/21/2024 6:24 PM HISTOLOGY TEACHER) Narrative 03/21/2024 6:24 PM HISTOLOGY TEACHER Ordered by an unspecified provider. Scanned Document CARDIAC SERVICES ORD ERABLES * IR ANGIO AV SHUNT IMAGING (03/20/2024 2:18 PM HISTOLOGY TEACHER) Anatomical Region Laterality Modality Lower Extremity, Upper Extremity, Chest X-Ray Angiography Narrative 03/20/2024 2:23 PM HISTOLOGY TEACHER Calvin Lynne MD 03/20/2024 2:25 PM Surgeon: Calvin Lynne MD Pre-Procedure diagnosis: ESRD Time out and final pre-procedure assessment completed immediately prior to start of procedure. Medications reviewed. Post-Procedure diagnosis: Same Anesthesia: Local, 50 mcg of fentanyl IV for pain Technical Procedure Performed: Left upper extremity AV graft injection with angioplasty and subsequent stent placement Findings: After informed consent was obtained the patient was placed supine on the angiogram table in the left upper extremity was prepped and draped in the usual sterile fashion. Anesthesia was obtained with lidocaine and the graft was punctured in an antegrade manner with a micropuncture set. Contrast injection demonstrates patency of the graft with recurrent high-grade stenosis at the venous anastomosis. Otherwise the venous outflow and central venous structures are unremarkable. A 6 Jamaican sheath was introduced and angioplasty of the venous anastomosis was performed using an 8 mm x 4 cm Conquest balloon. Reflux injection during balloon inflation demonstrated unremarkable arterial anastomosis. Contrast injection after angioplasty demonstrated no significant improvement at the stenosis. Subsequently the sheath was exchanged for an 8 Jamaican sheath. A 8 mm x 5 cm viabahn stent was deployed and then angioplastied with an 8 mm diameter balloon. Contrast injection demonstrated significant improvement with no residual narrowing. The sheath was removed and hemostasis was obtained with manual compression. The patient tolerated the procedure well. 20 cc of Isovue contrast was used. Radiation exposure 5.6 mGy air kerma Disposition: Home Status: Stable Drain or Pack: None Additional information/Complications: None Estimated blood loss: negligible Specimen(s) removed: No Specimen During the post-procedure debrief all intra-procedure verbal order medications ordered by the proceduralist were reviewed and authenticated. Ronald Rosas MD IR ORDERABLES from Last 3 Months Advance Directives Documents on File Type Date Recorded Patient Skiver S[employer]ings Expl anation Adv Directive/Living Will/POA 10/05/2018 9:04 PM * Full Code (Latest Code Status on File) Date Activated Date Inactivated Comments 10/02/2019 6:22 PM 10/07/2019 8:17 PM Care Teams Lamps Tester And Inspector Relationship Specialty Start Date End Date Shahid Powell MD [address] [place] [id number] PCP - General 10/05/10
--- OUTSIDE RECORDS SUMMARY | 2024-06-13 09:50 | XMS_ITS | Patient Health Summary ---
Author Organization [facility] Address [address] [place] [address] Care Team Providers Care Cloth Weaver Name Role Phone Shahid Powell MD Primary Care Provider + Note from [facility],non-owned Affiliates and Associated Physician Practices is amultiple site organization consisting of ambulatory clinics and hospital sitesin [place], [place], [place] and [place]. This disclosure is being madepursuant to the Care Everywhere program and may not contain all information available regarding this patient. Last updated 18.[facility] Allergies * Ibuprofen(GI Discomfort) -Low Criticality Medications * Be aware that medications may not be up to date on this document. Alwaysverify current medications with the patient. * atorvastatin (LIPITOR) 40 MG tablet(Started 09/12/2018) Take 1 (one) tablet by mouth once daily * levothyroxine (SYNTHROID) 112 MCG tablet(Started 07/16/2018) Take 1 (one) tablet by mouth once daily * TRADJENTA 5 MG tablet(Started 07/17/2018) Take 1 (one) tablet by mouth once daily * traMADol (ULTRAM) 50 MG tablet(Started 09/12/2018) Take 2 (two) tablets by mouth every 4 hours as needed * pantoprazole EC (PROTONIX) 40 MG tablet Take 1 (one) tablet by mouth at bedtime * ondansetron, disintegrating, (ZOFRAN ODT) 4 MG tablet(Started 09/28/2018) Take 1 (one) tablet by mouth as needed 6 refills left * MELATONIN PO Take 10 mg by mouth at bedtime * mirtazapine (REMERON) 15 MG tablet(Started 09/05/2019) Take 1 (one) tablet by mouth at bedtime * sertraline (ZOLOFT) 50 MG tablet(Started 11/26/2019) Take 1 (one) tablet by mouth once daily * Cholecalciferol (VITAMIN D3) 10 MCG (400 UNIT) tablet Take 5 (five) tablets by mouth once daily * calcium acetate (PHOSLO) 667 MG capsule(Started 09/21/2020) Take 1 (one) capsule by mouth 3 times daily Also one each snack * B Hvbsiou-Q-Euwpk Acid (TRIPHROCAPS) 1 MG CAPS(Started 10/19/2020) * docusate sodium (Colace) 100 MG capsule Take 1 (one) capsule by mouth 2 times daily * calcium-vitamin D (Caltrate Plus D) 600-200 MG-UNIT tablet Take 1 (one) tablet by mouth once daily * vitamin E (Tocopheryl) 400 UNIT capsule Take 1 (one) capsule by mouth once daily * zinc sulfate (Zincate) 220 (50 ZN) MG capsule Take 50 mg by mouth once daily * ferrous sulfate 325 (65 FE) MG tablet Take 45 mg by mouth once daily Slow Release * melatonin 3 MG tablet Take 10 mg by mouth at bedtime * Probiotic Product (TRUBIOTICS DIGEST + Mayvenn HEALTH PO) Take 1 tablet by mouth once daily * dicyclomine (Bentyl) 10 MG capsule(Started 08/02/2023) Take 1 (one) capsule by mouth 2 times daily Active Problems Problem Noted Date Diagnosed Date Encounter regarding vascular access for dialysis for end-stage renal disease 02/07/2022 Confusion 10/06/2019 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 ESRD (end stage renal disease) 10/04/2018 Inadequate flow of hemodialysis AV fistula Complication of arteriovenous dialysis fistula Clotted dialysis access Immunizations * Covid Pfizer primary monovalent 12+ yr 0.3mL Purple cap(Given 07/24/2020, 07/04/2020) * HEP B VACCINE, ADULT 3 DOSE(Given 01/31/2020, 03/29/2019, 11/23/2018, 10/26/2018, 09/28/2018) * PNEUMOCOCCAL PPV VACCINE(Given 05/08/2017) Social History Tobacco Use Types Packs/Day Years [...] Comments Blood Pressure 141/80 03/20/2024 2:25 PM ELECTRIC METER REPAIRER Pulse 93 03/20/2024 2:25 PM ELECTRIC METER REPAIRER Temperature 36.6 C (97.8 F) 03/20/2024 1:47 PM ELECTRIC METER REPAIRER Respiratory Rate 10 03/20/2024 2:25 PM ELECTRIC METER REPAIRER Oxygen Saturation 100% 03/20/2024 2:25 PM ELECTRIC METER REPAIRER Inhaled Oxygen Concentration - - Weight 61.2 kg (135 lb) 03/20/2024 1:47 PM ELECTRIC METER REPAIRER Height 139.7 cm (4' 7 ) 03/20/2024 1:47 PM ELECTRIC METER REPAIRER Body Mass Index 31.38 03/20/2024 1:47 PM ELECTRIC METER REPAIRER Medical Devices Implanted Type Area Rolls Baker Device Identifier Shelf Expiration Date Model / Serial / Lot Graft Vasc 4-7mm 40cm Grtx Std Wl Tpr Ln - [id number] Implanted:Qty: 1 on 10/02/2019 by Lucio Singh MD at [facility] Left: [employer] 12/03/2023 [id number] / [id number] / Procedures * CARDIAC RHYTHM STRIP ORDER(Performed 03/21/2024) * IR ANGIO AV SHUNT IMAGING(Performed 03/20/2024) Performed for Encounter regarding vascular access for dialysis for end-stage renal disease ([facility]) * IMAGING/RADIOLOGY/XRAY RESULTS ORDER(Performed 11/13/2023) * CARDIAC RHYTHM STRIP ORDER(Performed 10/20/2023) * IR ANGIO AV SHUNT IMAGING(Performed 10/18/2023) Performed for ESRD (end stage renal disease) ([facility]) * CARDIAC RHYTHM STRIP ORDER(Performed 06/16/2023) * IR ANGIO AV SHUNT IMAGING(Performed 06/14/2023) Performed for ESRD (end stage renal disease) ([facility]) * CARDIAC RHYTHM STRIP ORDER(Performed 02/10/2023) * IR ANGIO AV SHUNT IMAGING(Performed 02/08/2023) Performed for ESRD (end stage renal disease) ([facility]) * IMAGING/RADIOLOGY/XRAY RESULTS ORDER(Performed 11/04/2022) * IR ANGIO AV SHUNT IMAGING(Performed 11/02/2022) Performed for ESRD (end stage renal disease) ([facility]) * CARDIAC RHYTHM STRIP ORDER(Performed 06/23/2022) * CARDIAC RHYTHM STRIP ORDER(Performed 02/10/2022) * CARDIAC RHYTHM STRIP ORDER(Performed 10/20/2021) * IR ANGIO AV SHUNT IMAGING(Performed 10/12/2021) Performed for Encounter regarding vascular access for dialysis for end-stage renal disease ([facility]) * CARDIAC RHYTHM STRIP ORDER(Performed 07/20/2021) * CARDIAC RHYTHM STRIP ORDER(Performed 02/27/2021) * CARDIAC RHYTHM STRIP ORDER(Performed 10/23/2020) * CARDIAC RHYTHM STRIP ORDER(Performed 06/16/2020) * IR ANGIO AV SHUNT IMAGING(Performed 06/09/2020) Performed for Encounter regarding vascular access for dialysis for end-stage renal disease ([facility]) * CARDIAC RHYTHM STRIP ORDER(Performed 02/20/2020) * IR ANGIO AV SHUNT IMAGING(Performed 02/18/2020) Performed for ESRD (end stage renal disease) ([facility]) * CARDIAC RHYTHM STRIP ORDER(Performed 11/21/2019) * IR ANGIO AV SHUNT IMAGING(Performed 11/12/2019) Performed for Complication of arteriovenous dialysis fistula, subsequent encounter * CARDIAC RHYTHM STRIP ORDER(Performed 2019) * CARDIAC RHYTHM STRIP ORDER(Performed 10/11/2019) * APHERESIS/TRANSFUSION ORDER(Performed 10/09/2019) * HGB HCT PANEL(Performed 10/07/2019) * GLUCOSE - POINT OF CARE(Performed 10/06/2019) * TYPE + SCREEN PANEL(Performed 10/06/2019) * PREPARE RBC LEUKOREDUCED UNIT(Performed 10/06/2019) * BLOOD TYPE VERIFICATION(Performed 10/06/2019) * HGB HCT PANEL(Performed 10/06/2019) Performed for Anemia, unspecified type * GLUCOSE - POINT OF CARE(Performed 10/06/2019) * CBC W AUTO DIFFERENTIAL(Performed 10/06/2019) Performed for ESRD (end stage renal disease) ([facility]) * GLUCOSE - POINT OF CARE(Performed 10/05/2019) * GLUCOSE - POINT OF CARE(Performed 10/05/2019) * GLUCOSE - POINT OF CARE(Performed 10/05/2019) * GLUCOSE - POINT OF CARE(Performed 10/04/2019) * GLUCOSE - POINT OF CARE(Performed 10/04/2019) * AL ED EGD FLEX TRANSORAL DX(Performed 10/04/2019) * PATHOLOGY TISSUE EXAM (STL)(Performed 10/04/2019) Performed for Diagnosis unknown * GLUCOSE - POINT OF CARE(Performed 10/04/2019) * HEMODIALYSIS INPATIENT(Performed 10/04/2019) * EGD(Performed 10/04/2019) * HEMOGLOBIN A1C(Performed 10/04/2019) Performed for Type 2 diabetes mellitus without complication, unspecified whether long term care pharmacist insulin use (HCC) * RENAL FUNCTION PANEL(Performed 10/04/2019) * BLOOD GAS ART+LYTES+H&H POCT NOTIFICATION(Performed 10/04/2019) Performed for Confusion * XR ABD OBSTRUCTION SERIES 2VW(Performed 10/03/2019) Performed for Nausea and vomiting, intractability of vomiting not specified, unspecified vomiting type * CT HEAD WO CONTRAST(Performed 10/03/2019) Performed for Confusion * CULTURE BLOOD(Performed 10/03/2019) Performed for Confusion * TSH REFLEX FREE T4(Performed 10/03/2019) Performed for Hypothyroidism, unspecified type * HYDROXYBUTYRATE BETA(Performed 10/03/2019) Performed for Confusion * LACTIC ACID BLOOD(Performed 10/03/2019) Performed for Confusion * PT-INR(Performed 10/03/2019) Performed for Confusion * PHOSPHORUS BLOOD(Performed 10/03/2019) Performed for Confusion * COMPREHENSIVE METABOLIC PANEL(Performed 10/03/2019) Performed for Confusion * MAGNESIUM BLOOD(Performed 10/03/2019) Performed for Preop examination * CBC W AUTO DIFFERENTIAL(Performed 10/03/2019) Performed for Preop examination * CULTURE BLOOD(Performed 10/03/2019) Performed for Confusion * ISTAT EG7+ PANEL ART(Performed 10/03/2019) * GLUCOSE - POINT OF CARE(Performed 10/03/2019) * XR CHEST 1VW PORTABLE(Performed 10/03/2019) Performed for Preop examination * HEPATITIS B SURFACE ANTIGEN W RFLX CONFIRMATION(Performed 10/03/2019) Performed for ESRD (end stage renal disease) (HCC) * HEPATITIS B SURFACE ANTIBODY QUANT(Performed 10/03/2019) Performed for ESRD (end stage renal disease) (HCC) * HEMODIALYSIS INPATIENT(Performed 10/03/2019) * GLUCOSE - POINT OF CARE(Performed 10/03/2019) * IR CENTRAL LINE INSERT TUNNEL(Performed 10/03/2019) Performed for ESRD (end stage renal disease) (HCC) * GLUCOSE - POINT OF CARE(Performed 10/03/2019) * BASIC METABOLIC PANEL (CALCIUM TOTAL)(Performed 10/03/2019) Performed for Preop examination * GLUCOSE - POINT OF CARE(Performed 10/02/2019) * GLUCOSE - POINT OF CARE(Performed 10/02/2019) * THROMBECTOMY ARTERIOVENOUS GRAFT OR FISTULA(Performed 10/02/2019) * BASIC METABOLIC PANEL (CALCIUM TOTAL)(Performed 10/02/2019) Performed for Preop examination * VAS BILAT MAPPING FOR HEMODIALYSIS(Performed 10/02/2019) Performed for ESRD (end stage renal disease) ([facility]) * CARDIAC RHYTHM STRIP ORDER(Performed 07/02/2019) * IR ANGIO AV SHUNT IMAGING(Performed 06/20/2019) Performed for Complication of arteriovenous dialysis fistula, initial encounter * CARDIAC RHYTHM STRIP ORDER(Performed 04/30/2019) * IMAGING/RADIOLOGY/XRAY RESULTS ORDER(Performed 04/30/2019) * IR ANGIO AV SHUNT IMAGING(Performed 04/25/2019) Performed for ESRD (end stage renal disease) ([facility]), Inadequate flow of dialysis arteriovenous fistula, subsequent encounter * REVISION ARTERIOVENOUS (AV) FISTULA/GRAFT(Performed 03/14/2019) * BASIC METABOLIC PANEL (CALCIUM TOTAL)(Performed 03/14/2019) Performed for Preoperative examination * VAS DIALYSIS EXIST ACCESS SCAN(Performed 01/31/2019) Performed for ESRD (end stage renal disease) ([facility]) * CARDIAC RHYTHM STRIP ORDER(Performed 12/19/2018) * IR ANGIO AV SHUNT IMAGING(Performed 12/11/2018) Performed for Complication of arteriovenous dialysis fistula, initial encounter * VAS DIALYSIS EXIST ACCESS SCAN(Performed 11/15/2018) Performed for ESRD (end stage renal disease) ([facility]) * CREATE FISTULA A-V(Performed 10/04/2018) * GLUCOSE - POINT OF CARE(Performed 10/04/2018) * BASIC METABOLIC PANEL (CALCIUM TOTAL)(Performed 10/04/2018) Performed for Preop examination * VAS BILAT MAPPING FOR HEMODIALYSIS(Performed 09/27/2018) Performed for ESRD (end stage renal disease) ([facility]) * CULTURE URINE(Performed 09/16/2013) Results * CARDIAC RHYTHM STRIP ORDER (03/21/2024 6:24 PM ELECTRIC METER REPAIRER) Only the most recent of18 resultswithin the time period is included. Narrative 03/21/2024 6:24 PM ELECTRIC METER REPAIRER Ordered by an unspecified provider. Scanned Document CARDIAC SERVICES ORD ERABLES * IR ANGIO AV SHUNT IMAGING (03/20/2024 2:18 PM ELECTRIC METER REPAIRER) Only the most recent of12 resultswithin the time period is included. Anatomical Region Laterality Modality Lower Extremity, Upper Extremity, Chest X-Ray Angiography Narrative 03/20/2024 2:23 PM ELECTRIC METER REPAIRER Calvin Lynne MD 03/20/2024 2:25 PM Surgeon: [...] central venous structures are unremarkable. A 6 Slovak sheath was introduced and angioplasty of the venous anastomosis was performed using an 8 mm x 4 cm Conquest balloon. Reflux injection during balloon inflation demonstrated unremarkable arterial anastomosis. Contrast injection after angioplasty demonstrated no significant improvement at the stenosis. Subsequently the sheath was exchanged for an 8 Slovak sheath. A 8 mm x 5 cm [...] and authenticated. Ronald Rosas MD IR ORDERABLES * IMAGING RADIOLOGY XRAY RESULTS ORDER (11/13/2023) Only the most recent of3 resultswithin the time period is included. Anatomical Region Laterality Modality Other 11/13/2023 Narrative 11/13/2023 Ordered by an unspecified provider. Scanned Document IMAGING * APHERESIS/TRANSFUSION ORDER (10/09/2019 9:55 PM CDT) Narrative 10/09/2019 9:55 PM CDT Ordered by an unspecified provider. Scanned Document NURSING - VITAL SIGN S AND ASSESSMENT * (ABNORMAL) HGB HCT PANEL (10/07/2019 10:15 AM CDT) Only the most recent of2 resultswithin the time period is included. Hemoglobin 7.8(L) 12.0 - 15.6 gm/dL 10/07/2019 10:25 AM CDT [facility] Hematocrit 24.2(L) 35.9 - 45.5 % 10/07/2019 10:25 AM CDT [facility] Blood BLOOD SPECIMEN / Unknown Venipuncture / Unknown 10/07/2019 10:15 AM CDT 10/07/2019 10:22 AM CDT Lyndon Cárdenas MD LAB - HEMATOLOGY ORD ERABLES [facility] [address] [place] [address] * TRANSFUSE RED BLOOD CELL LEUKOREDUCED UNIT(S) (10/06/2019 4:08 PM CDT) Nuris Parks MD NURSING - BLOOD PROD TRANSFUSION * (ABNORMAL) GLUCOSE - POINT OF CARE (10/06/2019 11:29 AM CDT) Only the most recent of14 resultswithin the time period is included. Pathologist [facility] Glucose WB/POC 148(H) 70 - 106 mg/dL 10/06/2019 5:50 PM CDT [facility] Specimen Type Arterial/C apillary 10/06/2019 5:50 PM CDT [facility] Blood BLOOD SPECIMEN / Unknown 10/06/2019 11:29 AM CDT 10/06/2019 5:50 PM CDT Nuris Parks MD LAB - POINT OF CARE ORDERABLES Performing Organization Address [facility] Co de Phone Number [facility] [id number] [place] [address] * TYPE + SCREEN PANEL (10/06/2019 10:53 AM CDT) ABO O 10/06/2019 11:40 AM CDT [facility] Rh Type Negative 10/06/2019 11:40 AM CDT [facility] Comment:History checked. Col lect retype. Antibody Screen Negative 10/06/2019 11:40 AM CDT [facility] Blood Bank BLOOD SPECIMEN / Unknown Venipuncture / Unknown 10/06/2019 10:53 AM CDT 10/06/2019 11:03 AM CDT Nuris Parks MD LAB - BLOOD BANK ORD ERABLES Performing Organization Address [facility] de Phone Number [facility] [address] [place] [address] * PREPARE (CROSSMATCH) RBC UNIT(S), 1 Units (10/06/2019 10:45 AM CDT) Product Code [id number] [facility] Unit Donor # [id number] D [facility] ABO Donor Type O [facility] Rh Type Unit NEG [facility] Unit Status Transfd [facility] B[facility] ABO Rh Type Unit ONEG [facility] Donor Unit Expiration Date [id number] [facility] Blood Type Barcode 9500 [facility] Blood Bank BLOOD SPECIMEN / Unknown 10/06/2019 10:45 AM CDT Nuris Parks MD LAB - BLOOD BANK ORD ERABLES Performing Organization Address [facility] de Phone Number [facility] [address] [place] [address] * BLOOD TYPE VERIFICATION (10/06/2019 9:53 AM CDT) ABO O 10/06/2019 11:30 AM CDT [facility] Rh Type Negative 10/06/2019 11:30 AM CDT [facility] Blood Bank BLOOD SPECIMEN / Unknown Venipuncture / Unknown 10/06/2019 9:53 AM CDT 10/06/2019 11:05 AM CDT Nuris Parks MD LAB - BLOOD BANK ORD ERABLES [facility] [id number] * (ABNORMAL) CBC W AUTO DIFFERENTIAL (10/06/2019 5:37 AM CDT) Only the most recent of2 resultswithin the time period is included. [facility] WBC 8.1 4.4 - 10.7 x10E9/L 10/06/2019 5:57 AM CDT [facility] WBC Corrected 10/06/2019 5:57 AM CDT [facility] RBC 2.02(L) 3.80 - 5.20 x10E12/L 10/06/2019 5:57 AM CDT [facility] Hemoglobin 6.4(L) 12.0 - 15.6 gm/dL 10/06/2019 5:57 AM CDT [facility] Hematocrit 20.6(L) 35.9 - 45.5 % 10/06/2019 5:57 AM CDT [facility] MCV 102.0(H) 80.7 - 98.3 fl 10/06/2019 5:57 AM CDT [facility] MCH 31.7 26.7 - 34.0 pg 10/06/2019 5:57 AM CDT [facility] MCHC 31.1 30.8 - 35.9 gm/dL 10/06/2019 5:57 AM CDT [facility] Platelet Count 117(L) 153 - 416 x10E9/L 10/06/2019 5:57 AM CDT [facility] RDW-CV 15.1(H) 12.1 - 14.9 % 10/06/2019 5:57 AM CDT [facility] MPV 10.0 9.4 - 12.9 fl 10/06/2019 5:57 AM CDT [facility] Neutrophils % 59.3 44.0 - 73.0 % 10/06/2019 5:57 AM CDT [facility] Lymphocytes % 29.3 20.0 - 43.0 % 10/06/2019 5:57 AM CDT [facility] Monocytes % 8.5 5.0 - 13.0 % 10/06/2019 5:57 AM CDT [facility] Eosinophils % 1.9 0.0 - 6.0 % 10/06/2019 5:57 AM CDT [facility] Basophils % 0.4 0.0 - 2.0 % 10/06/2019 5:57 AM CDT [facility] Immature Granulocytes 0.6 0 - 1 % 10/06/2019 5:57 AM CDT [facility] Neutrophil Absolute 4.81 2.01 - 7.14 x10E9/L 10/06/2019 5:57 AM CDT [facility] Lymphocytes Absolute 2.37 1.07 - 3.94 x10E9/L 10/06/2019 5:57 AM CDT [facility] Monocytes Absolute 0.69 0.26 - 1.07 x10E9/L 10/06/2019 5:57 AM CDT [facility] Eosinophils Absolute 0.15 0 - 0.47 x10E9/L 10/06/2019 5:57 AM CDT [facility] Basophils Absolute 0.03 0 - 0.08 x10E9/L 10/06/2019 5:57 AM CDT [facility] Immature Granulocytes Absolute 0.05 0.00 - 0.06 x10E9/L 10/06/2019 5:57 AM CDT [facility] nRBC Auto 0 /100 WBC 10/06/2019 5:57 AM CDT [facility] Blood BLOOD SPECIMEN / Unknown Venipuncture / Unknown 10/06/2019 5:37 AM CDT 10/06/2019 5:46 AM CDT Narrative [facility] - 10/06/2019 5:57 AM CDT PLATELETS = SLIGHTLY DECREASED Lyndon Cárdenas MD LAB - HEMATOLOGY ORD ERABLES [facility] [address] [place] [address] * GROSS + MICRO EXAM (STL) (10/04/2019 1:11 PM CDT) Case Report Surgical Pathology Report Case: [id number] Authorizing Provider: Ada Hayes DO Collected: 10/04/2019 01:11 PM Ordering Location: [facility] Received: 10/04/2019 03:11 PM Pathologist: Vaishnavi Mckinnon MD Specimens: A) - Duodenal Biopsy B) - Gastric Biopsy 10/09/2019 9:30 AM CDT [facility] Addendum 1 A Helicobacter pylor i immunostain performed on block B1 is negative. 10/09/2019 9:30 AM CDT [facility] Addendum electronically signed by Vaishnavi Mckinnon MD on 10/09/2019 at 9:29 AM Final Diagnosis A. Duodenum, biopsy: -- Small intestinal mucosa with no histopathologic abnormality B. Stomach, biopsy: -- Antral and oxyntic type gastric mucosa with mild chronic inflammation -- Oxyntic type gastric mucosa with changes consistent with proton pump inhibitor effect -- No dysplasia or malignancy 10/09/2019 9:30 AM CDT [facility] Gross Description Received in container A in formalin labeled Gisele Centeno, duodenal biopsy, are multiple light phillips tissue fragments measuring 0.9 x 0.2 x 0.1 cm in aggregate. The specimen is placed in a filter bag, stained with hematoxylin and entirely submitted in cassette A1. Received in container B in formalin labeled Gisele Centeno, gastric biopsy, are multiple light phillips tissue fragments measuring 0.9 x 0.2 x 0.1 cm in aggregate. The specimen is placed in a filter bag, stained with hematoxylin, and entirely submitted in cassette B1. CH/ns 10/09/2019 9:30 AM CDT [facility] Microscopic Description A Helicobacter pylori immunostain will be performed on block B1 and the result will be reported in an addendum. 10/09/2019 9:30 AM CDT [facility] Disclaimer All histochemical and/or immunohistochemical results are interpreted with controls that demonstrate appropriate staining reactions before reporting results. Note on use of immunocytochemistry reagents: This test was developed and its performance characteristic determined by [facility], Department of Laboratory Medicine. It has not been cleared or approved by the U.S. Food and Drug Administration (FDA). The FDA has determined that such clearance or approval is not necessary. The test is used for clinical purpose. It should not be regarded as investigational or for research. This laboratory is certified to perform high complexity testing. The performance characteristics of the IHC/SINDY assays have been validated on formalin-fixed paraffin embedded tissues only. The assays have not been validated on decalcified tissues. Results should be interpreted with caution. 10/09/2019 9:30 AM CDT [facility] Embedded Images 10/09/2019 9:30 AM CDT [facility] Pathology/Cytology GASTRIC BIOPSY SPECIMEN / Unknown 10/04/2019 1:11 PM CDT 10/04/2019 3:11 PM CDT Miscellaneous samples (specimen) GASTRIC BIOPSY SPECIMEN / Unknown 10/04/2019 1:11 PM CDT 10/04/2019 3:11 PM CDT Ada Hayes DO LAB - PATHOLOGY/CYTO LOGY ORDERABLES Performing Organization Address City/State/[facility] Co de Phone Number [facility] [address] [place] [id number] * EGD (10/04/2019 7:12 AM CDT) Report Endoscopy POC _ Patient Name: Gisele Centeno Procedure Date: 10/04/2019 7:12 AM Date of : 1945 Admit Type: Inpatient Age: 73 Gender: Female Attending MD: Ada Hayes DO _ Procedure: Upper GI endoscopy Indications: Epigastric abdominal pain, Nausea with vomiting Providers: Ada Hayes DO (Doctor) Referring MD: Shahid Powell MD (Referring MD) Medicines: See the Anesthesia note for documentation of the administered medications Complications: No immediate complications. _ Procedure: Pre-Anesthesia Assessment: - Prior to the procedure, a History and Physical was performed, and patient medications and allergies were reviewed. The patient's tolerance of previous anesthesia was also reviewed. The risks and benefits of the procedure and the sedation options and risks were discussed with the patient. All questions were answered, and informed consent was obtained. Prior Anticoagulants: The patient has taken no previous anticoagulant or antiplatelet agents. ASA Grade Assessment: II - A patient with mild systemic disease. After reviewing the risks and benefits, the patient was deemed in satisfactory condition to undergo the procedure. After obtaining informed consent, the endoscope was passed under direct vision. Throughout the procedure, the patient's blood pressure, pulse, and oxygen saturations were monitored continuously. The Endoscope was introduced through the mouth, and advanced to the second part of duodenum. The upper GI endoscopy was accomplished without difficulty. The patient tolerated the procedure well. Findings: The examined duodenum was normal. Biopsies were taken with a cold forceps for histology. Fluid (residue) was found in the second portion of the duodenum. Diffuse minimal inflammation characterized by congestion (edema) was found in the gastric body. Biopsies were taken with a cold forceps for histology. The Z-line was regular and was found 40 cm from the incisors. The examined esophagus was normal. _ Impression: - Normal examined duodenum. Biopsied. - Retained food in the duodenum. - Acute gastritis. Biopsied. - Z-line regular, 40 cm from the incisors. - Normal esophagus. Recommendation: - Patient has a contact number available for emergencies. The signs and symptoms of potential delayed complications were discussed with the patient. Return to normal activities tomorrow. Written discharge instructions were provided to the patient. - Resume previous diet. - Continue present medications. - Await pathology results. - Telephone my office for pathology results in 1 week. Procedure Code(s): --- Professional --- 44787, Esophagogastroduo denoscopy, flexible, transoral; with biopsy, single or multiple --- Technical --- 08649, Esophagogastroduo denoscopy, flexible, transoral; with biopsy, single or multiple Diagnosis Code(s): --- Professional --- K29.00, Acute gastritis without bleeding R10.13, Epigastric pain R11.2, Nausea with vomiting, unspecified --- Technical --- K29.00, Acute gastritis without bleeding R10.13, Epigastric pain R11.2, Nausea with vomiting, unspecified CPT copyright 2017 [employer]. All rights reserved. The codes documented in this report are preliminary and upon survey statistician review may be revised to meet current compliance requirements. ____ Ada Hayes DO 10/04/2019 1:15:25 PM This report has been signed electronically. Number of Addenda: 0 Note Initiated On: 10/04/2019 7:12 AM [facility] 10/04/2019 7:12 AM CDT Isaias Leon DO GI PROCEDURE ORDER LISE [facility] [place] [address] * HEMOGLOBIN A1C (10/04/2019 4:13 AM CDT) Hemoglobin A1c 4.8 4.2 - 5.6 % 10/04/2019 5:06 AM CDT [facility] Estimated Average Glucose 91 mg/dL 10/04/2019 5:06 AM CDT [facility] Blood BLOOD SPECIMEN / Unknown Venipuncture / Unknown 10/04/2019 4:13 AM CDT 10/04/2019 4:52 AM CDT Narrative [facility] - 10/04/2019 5:06 AM CDT The following cutoff levels are recommended by [place]. A1c > 6.5% : considered as diabetes if two separate tests >6.5% or in an appropriate clinical setting. A1c 5.7% - 6.4% : considered as prediabetes (suggest increased risk for diabetes and cardiovascular disease) Control target level: Should be individualized. < 7 for general (non-) , < 8% less stringent goal, < 6.5 more stringent goal. Hemoglobin A1c measurements are used as an aid in the diagnosis of diabetic mellitus, as an aid to identify patients who may be at the risk for developing diabetic mellitus, and for the monitoring long-term blood glucose control in individuals with diabetes mellitus. This test should not replace glucose testing for patients with Type 1 diabetes, pediatric patients, or women. Falsely low HbA1c results may be observed in patients with clinical conditions that shorten erythrocyte life span or decrease mean erythrocyte age such as the presence of unstable hemoglobin variants, elevated hemoglobin F level or other causes of hemolytic anemia . HbA1c may not accurately reflect glycemic control when clinical conditions that affect erythrocyte survival are present. Severe Iron deficiency anemia may yield falsely high results. Hemoglobin A1c assay should not be used to diagnose or monitor diabetes in patients with malignancy, recent blood transfusion, chronic kidney or liver disease. This method may yield falsely low results when hemoglobin (HbF) exceeds 5% in the specimen. Salvador Wheeler MD LAB - CHEMISTRY JEANETTE WINSTON [facility] Organization Address City/State/ZIP Co de Phone Number [facility] [address] [place] [address] * (ABNORMAL) RENAL FUNCTION PANEL (10/04/2019 4:13 AM CDT) Glucose 108(H) 70 - 105 mg/dL 10/04/2019 5:45 AM CDT [facility] Sodium 131(L) 136 - 145 mmol/L 10/04/2019 5:45 AM CDT [facility] Potassium 4.4 3.5 - 5.1 mmol/L 10/04/2019 5:45 AM CDT [facility] Chloride 95(L) 98 - 107 mmol/L 10/04/2019 5:45 AM CDT [facility] CO2 20(L) 23 - 31 mmol/L 10/04/2019 5:45 AM CDT [facility] Calcium 8.5 8.4 - 10.4 mg/dL 10/04/2019 5:45 AM CDT [facility] Anion Gap 16 8 - 16 mmol/L 10/04/2019 5:45 AM CDT [facility] BUN 32(H) 9.8 - 20.1 mg/dL 10/04/2019 5:45 AM CDT [facility] Creatinine 4.03(H) 0.57 - 1.11 mg/dL 10/04/2019 5:45 AM CDT [facility] Albumin 3.6 3.2 - 4.6 gm/dL 10/04/2019 5:45 AM CDT [facility] Phosphorus 5.3(H) 2.3 - 4.7 mg/dL 10/04/2019 5:45 AM CDT [facility] eGFR by MDRD 11 mL/min/1.7 3m2 10/04/2019 5:45 AM CDT [facility] eGFR by MDRD 13 mL/min/1.7 3m2 10/04/2019 5:45 AM CDT [facility] Blood BLOOD SPECIMEN / Unknown Venipuncture / Unknown 10/04/2019 4:13 AM CDT 10/04/2019 4:53 AM CDT Lyndon Cárdenas MD LAB - CHEMISTRY JEANETTE WINSTON [facility] Organization Address City/State/ZIP Co de Phone Number [facility] [address] [place] [address] * BLOOD GAS ART+LYTES+H&H POCT NOTIFICATION (10/04/2019 1:33 AM CDT) Comment Notification Label Only - See Separate Report 10/04/2019 3:00 AM CDT [facility] Blood BLOOD SPECIMEN / Unknown 10/04/2019 1:33 AM CDT 10/04/2019 1:33 AM CDT Salvador Wheeler MD LAB - BLOOD GASES OR DERABLES [facility] [address] [phone] * XR ABD OBSTRUCTION SERIES 2VW (10/03/2019 10:08 PM CDT) Anatomical Region Laterality Modality Abdomen Radiographic Sveta ging 10/03/2019 10:2 8 PM CDT Impressions 10/03/2019 10:30 PM CDT Unremarkable bowel gas pattern. *Reading Radiologist: Lizet Metzger on 10/03/2019 at 10:30 PM Narrative 10/03/2019 10:30 PM CDT HISTORY: Nausea and vomiting. COMPARISONS: None available. TECHNIQUE: Upright and supine abdominal radiographic views were performed. FINDINGS: The visualized portion the lung bases are grossly unremarkable. The tip of a central venous catheter is seen within the right atrium. Cholecystectomy clips are seen. Air is seen within the small and large bowel as well as presumably the stomach. No abnormally dilated loops of bowel are seen to suggest obstruction. The osseous structures demonstrate chronic degenerative changes and lumbar levoscoliotic curvature. Retained clip suggestive of mesh herniorrhaphy are seen within the lower pelvis. Procedure Note Lizet Metzger MD - 10/03/2019 HISTORY: Nausea and vomiting. COMPARISONS: None available. TECHNIQUE: Upright and supine abdominal radiographic views were performed. FINDINGS: The visualized portion the lung bases are grossly unremarkable. The tip of a central venous catheter is seen within the right atrium. Cholecystectomy clips are seen. Air is seen within the small and large bowel as well as presumably the stomach. No abnormally dilated loops of bowel are seen to suggest obstruction. The osseous structures demonstrate chronic degenerative changes and lumbar levoscoliotic curvature. Retained clip suggestive of mesh herniorrhaphy are seen within the lower pelvis. IMPRESSION Unremarkable bowel gas pattern. *Reading Radiologist: Lizet Metzger on 10/03/2019 at 10:30 PM Salvador Wheeler MD DIAGNOSTIC IMAGING O RDERABLES * CT HEAD NON CONTRAST (10/03/2019 9:57 PM CDT) Anatomical Region Laterality Modality Head Computed Tomogra phy 10/03/2019 10:1 0 PM CDT Impressions 10/03/2019 10:13 PM CDT 1. No acute intracranial abnormalities. 2. Right frontal and occipital encephalomalacia. 3. 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 *Reading Radiologist: Lizet Metzger on 10/03/2019 at 10:13 PM Narrative 10/03/2019 10:13 PM CDT STUDY: NONCONTRAST CT OF THE HEAD INDICATION: Altered mental status. COMPARISON: None available. TECHNIQUE: CT of the head was performed from the skull base to the vertex without contrast administration. Multiplanar reconstructions were reviewed. Dose reduction techniques were utilized. FINDINGS: There is no visible soft tissue trauma or skull fracture. There is no acute intracranial hemorrhage, midline shift, mass effect, or intra-axial or extra-axial fluid collection. Mcdermott-white matter differentiation is preserved. There is no evidence of acute cortical infarct. There is right frontal and occipital encephalomalacia. The ventricles and sulci are unremarkable. The basal cisterns are patent. The orbital contents are unremarkable bilaterally. The visualized paranasal sinuses and mastoid air cells are clear. Procedure Note Lizet Metzger MD - 10/03/2019 STUDY: NONCONTRAST CT OF THE HEAD INDICATION: Altered mental status. COMPARISON: None available. TECHNIQUE: CT of the head was performed from the skull base to the vertex without contrast administration. Multiplanar reconstructions were reviewed. Dose reduction techniques were utilized. FINDINGS: There is no visible soft tissue trauma or skull fracture. There is no acute intracranial hemorrhage, midline shift, mass effect, or intra-axial or extra-axial fluid collection. Mcdermott-white matter differentiation is preserved. There is no evidence of acute cortical infarct. There is right frontal and occipital encephalomalacia. The ventricles and sulci are unremarkable. The basal cisterns are patent. The orbital contents are unremarkable bilaterally. The visualized paranasal sinuses and mastoid air cells are clear. IMPRESSION 1. No acute intracranial abnormalities. 2. Right frontal and occipital encephalomalacia. 3. 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 *Reading Radiologist: Lizet Metzger on 10/03/2019 at 10:13 PM Salvador Wheeler MD CT ORDERABLES * CULTURE BLOOD (10/03/2019 9:37 PM CDT) Only the most recent of2 resultswithin the time period is included. Pathologist [facility] Culture No growth day 5 GASPER 10/09/2019 1:41 AM CDT [facility] MICROBIOLOGY Blood PERIPHERAL BLOOD / Unknown Venipuncture / Unknown 10/03/2019 9:37 PM CDT 10/03/2019 9:45 PM CDT Salvador Wheeler MD LAB - MICROBIOLOGY O RDERABLES [facility] MICROBIOLOGY [address] [place] [phone] * TSH REFLEX FREE T4 (10/03/2019 9:19 PM CDT) Pathologist [facility] TSH 2.847 0.350 - 4.940 uIU/mL 10/03/2019 11:05 PM CDT [facility] Blood BLOOD SPECIMEN / Unknown Venipuncture / Unknown 10/03/2019 9:19 PM CDT 10/03/2019 10:32 PM CDT Salvador Wheeler MD LAB - CHEMISTRY ORDYessenia WINSTON [facility] [address] [place] [address] * (ABNORMAL) HYDROXYBUTYRATE BETA (10/03/2019 9:19 PM CDT) Beta-Hydroxybu tyrate 5.1(H) <0.6 mmol/L 10/03/2019 9:39 PM CDT [facility] Blood BLOOD SPECIMEN / Unknown Venipuncture / Unknown 10/03/2019 9:19 PM CDT 10/03/2019 9:26 PM CDT Narrative [facility] - 10/03/2019 9:39 PM CDT Betahydroxybutyrate comment: This test replaces Serum Acetone testing.Results 0.6-1.5 mmol/L could require medical intervention. Results >1.5 mmol/L may be indicative of diabetic ketoacidosis. Use in conjunction with Serum Glucose levels. Salvador Wheeler MD LAB - CHEMISTRY ORDE CATRACHITO Performing Organization Address [facility]/ZIP Co de Phone Number [facility] [address] [place] [address] * PT-INR (10/03/2019 9:19 PM CDT) PT 13.7 12.1 - 14.8 sec 10/03/2019 9:40 PM CDT [facility] INR 1.1 0.9 - 1.1 10/03/2019 9:40 PM CDT [facility] Blood BLOOD SPECIMEN / Unknown Venipuncture / Unknown 10/03/2019 9:19 PM CDT 10/03/2019 9:26 PM CDT Narrative [facility] - 10/03/2019 9:40 PM CDT Conventional Warfarin Anticoagulant Therapy: INR Reference Range: 2.0-3.0 Intensive Warfarin Anticoagulant Therapy: INR Reference Range: 2.5-3.5 Salvador Wheeler MD LAB - COAGULATION OR DERABLES Performing Organization Address [facility] Co de Phone Number [facility] [address] [place] [address] * (ABNORMAL) COMPREHENSIVE METABOLIC PANEL (10/03/2019 9:19 PM CDT) Glucose 102 70 - 105 mg/dL 10/03/2019 9:50 PM CDT [facility] Sodium 132(L) 136 - 145 mmol/L 10/03/2019 9:50 PM CDT [facility] Potassium 3.3(L) 3.5 - 5.1 mmol/L 10/03/2019 9:50 PM CDT [facility] Chloride 94(L) 98 - 107 mmol/L 10/03/2019 9:50 PM CDT [facility] CO2 21(L) 23 - 31 mmol/L 10/03/2019 9:50 PM CDT [facility] Calcium 8.5 8.4 - 10.4 mg/dL 10/03/2019 9:50 PM CDT [facility] Anion Gap 17(H) 8 - 16 mmol/L 10/03/2019 9:50 PM CDT [facility] BUN 24(H) 9.8 - 20.1 mg/dL 10/03/2019 9:50 PM CDT [facility] Creatinine 3.31(H) 0.57 - 1.11 mg/dL 10/03/2019 9:50 PM CDT [facility] Alkaline Phosphatase 113 40 - 150 U/L 10/03/2019 9:50 PM CDT [facility] ALT <6 0 - 61 U/L 10/03/2019 9:50 PM CDT [facility] AST 19 5 - 34 U/L 10/03/2019 9:50 PM CDT [facility] Protein Total 6.9 6.4 - 8.3 gm/dL 10/03/2019 9:50 PM CDT [facility] Albumin 3.6 3.2 - 4.6 gm/dL 10/03/2019 9:50 PM CDT [facility] Bilirubin Total 0.6 0.2 - 1.0 mg/dL 10/03/2019 9:50 PM CDT [facility] eGFR by MDRD 14 mL/min/1.7 3m2 10/03/2019 9:50 PM CDT [facility] eGFR by MDRD 16 mL/min/1.7 3m2 10/03/2019 9:50 PM CDT [facility] Blood BLOOD SPECIMEN / Unknown Venipuncture / Unknown 10/03/2019 9:19 PM CDT 10/03/2019 9:27 PM CDT Salvador Wheeler MD LAB - CHEMISTRY [facility] Organization Address City/State/[facility] Co de Phone Number [facility] [address] [place] [address] * PHOSPHORUS BLOOD (10/03/2019 9:19 PM CDT) Phosphorus 2.8 2.3 - 4.7 mg/dL 10/03/2019 9:48 PM CDT [facility] Blood BLOOD SPECIMEN / Unknown Venipuncture / Unknown 10/03/2019 9:19 PM CDT 10/03/2019 9:27 PM CDT Salvador Wheleer MD LAB - CHEMISTRY ORDYessenia WINSTON Performing Organization Address [facility] Co de Phone Number [facility] [address] [place] [address] * MAGNESIUM BLOOD (10/03/2019 9:19 PM CDT) Pathologist [facility] Magnesium 1.6 1.6 - 2.6 mg/dL 10/03/2019 9:48 PM CDT [facility] Blood BLOOD SPECIMEN / Unknown Venipuncture / Unknown 10/03/2019 9:19 PM CDT 10/03/2019 9:27 PM CDT Car Castillo MD LAB - CHEMISTRY ORDERABLES Performing Organization Address [facility] Co de Phone Number [facility] [address] [place] [address] * LACTIC ACID BLOOD (10/03/2019 9:19 PM CDT) [facility] Lactic Acid 1.23 0.5 - 2.2 mmol/L 10/03/2019 9:40 PM CDT [facility] Blood BLOOD SPECIMEN / Unknown Venipuncture / Unknown 10/03/2019 9:19 PM CDT 10/03/2019 9:26 PM CDT Salvador Wheeler MD LAB - CHEMISTRY JEANETTE WINSTON Performing Organization Address [facility] Co de Phone Number [facility] [id number] [place] [address] * (ABNORMAL) ISTAT EG7+ PANEL ART (10/03/2019 9:13 PM CDT) pH Arterial POCT 7.66(HH) 7.35 - 7.45 pH 10/03/2019 9:19 PM CDT [facility] pCO2 Arterial 18.7(L) 35 - 45 mm hg 10/03/2019 9:19 PM CDT [facility] pO2 Arterial 81 80 - 100 mm hg 10/03/2019 9:19 PM CDT [facility] HCO3 Arterial POCT 21.0(L) 22 - 26 mmol/L 10/03/2019 9:19 PM CDT [facility] BE Arterial 1 -2 - 2 mmol/L 10/03/2019 9:19 PM CDT [facility] TCO2 Arterial Calc POCT 22(L) 23 - 27 mmol/L 10/03/2019 9:19 PM CDT [facility] O2 Saturation Arterial 98 90 - 100 % 10/03/2019 9:19 PM CDT [facility] Sodium Arterial 130(L) 136 - 145 mmol/L 10/03/2019 9:19 PM CDT [facility] Potassium Arterial 3.2(L) 3.5 - 5.1 mmol/L 10/03/2019 9:19 PM CDT [facility] Calcium Ionized Arterial POCT 1.03(L) 1.12 - 1.32 mmol/L 10/03/2019 9:19 PM CDT [facility] Hemoglobin Arterial POCT 9.2(L) 12.0 - 15.6 gm/dL 10/03/2019 9:19 PM CDT [facility] Hematocrit Arterial POCT 27.0(L) 35.9 - 45.5 % 10/03/2019 9:19 PM CDT [facility] Von's Test NA 10/03/2019 9:19 PM CDT [facility] Treatment Delivery Method Room Air 10/03/2019 9:19 PM CDT [facility] PT iSTAT [id number] 10/03/2019 9:19 PM CDT [facility] Sample iSTAT ART 10/03/2019 9:19 PM CDT [facility] Site R Radial 10/03/2019 9:19 PM CDT [facility] Blood ARTERIAL BLOOD SPECIMEN / Unknown 10/03/2019 9:13 PM CDT 10/03/2019 9:19 PM CDT Lucio Singh MD LAB - POINT OF CAR E ORDERABLES [facility] [address] [phone] * XR CHEST 1VW PORTABLE (10/03/2019 8:43 PM CDT) Anatomical Region Laterality Modality Chest Radiographic Sveta ging 10/03/2019 9:25 PM CDT Narrative 10/03/2019 9:25 PM CDT STUDY: Single frontal view of the chest. HISTORY: Preoperative evaluation. COMPARISON: None available. FINDINGS: A right dual lumen dialysis catheter is seen. The cardiomediastinal silhouette is normal. The pulmonary vasculature is unremarkable. The lungs are clear. There is no pleural effusion. There is no pneumothorax. The osseous structures are grossly unremarkable. IMPRESSION: No acute cardiopulmonary findings. *Reading Radiologist: Lizet Metzger on 10/03/2019 at 9:25 PM Procedure Note Lizet Metzger MD - 10/03/2019 STUDY: Single frontal view of the chest. HISTORY: Preoperative evaluation. COMPARISON: None available. FINDINGS: A right dual lumen dialysis catheter is seen. The cardiomediastinal silhouette is normal. The pulmonary vasculature is unremarkable. The lungs are clear. There is no pleural effusion. There is no pneumothorax. The osseous structures are grossly unremarkable. IMPRESSION: No acute cardiopulmonary findings. *Reading Radiologist: Lizet Metzger on 10/03/2019 at 9:25 PM Car Castillo MD DIAGNOSTIC IMAG ING ORDERABLES * HEPATITIS B SURFACE ANTIGEN W RFLX CONFIRMATION (10/03/2019 3:09 PM CDT) HBsAg Non Reactive Non Reactive 10/03/2019 4:52 PM CDT [facility] Blood BLOOD SPECIMEN / Unknown Venipuncture / Unknown 10/03/2019 3:09 PM CDT 10/03/2019 3:47 PM CDT Lyndon Cárdenas MD LAB - CHEMISTRY JEANETTE WINSTON [facility] [address] [place] [address] * (ABNORMAL) HEPATITIS B SURFACE ANTIBODY QUANT (10/03/2019 3:08 PM CDT) Hepatitis B Virus Surface Antibody Quantitative 17.68(H) 0.00 - 7.99 mIU/ml 10/03/2019 8:19 PM CDT [facility] HBsAb REACTIVE( A) Non Reactive 10/03/2019 8:19 PM CDT [facility] Blood BLOOD SPECIMEN / Unknown Venipuncture / Unknown 10/03/2019 3:08 PM CDT 10/03/2019 3:47 PM CDT Narrative [facility] - 10/03/2019 8:19 PM CDT Individual is considered immune to HBV infection. Lyndon Cárdenas MD LAB - SEROLOGY ORDER LISE [facility] [address] [place] [address] * IR CENTRAL LINE INSERT TUNNEL (10/03/2019 10:10 AM CDT) Anatomical Region Laterality Modality Chest, Upper Extremity X-Ray Ang iography 10/03/2019 12:0 1 PM CDT Impressions 10/03/2019 12:02 PM CDT Successful right internal jugular vein ultrasound and fluoroscopically guided tunneled hemodialysis catheter placement as described above. The catheter is ready for immediate use. *Reading Radiologist: Nehal Perez on 10/03/2019 at 12:02 PM Narrative 10/03/2019 12:02 PM CDT Fluoroscopically and ultrasound guided right internal jugular tunneled central venous catheter placement Supervision of moderate conscious sedation Clinical indication: Renal failure Sedation: The procedure was performed with intravenous conscious sedation using 1 mg Versed and 50 mcg fentanyl. Sedation was continuously monitored independently by the radiology nurse for 15 minutes. Total sedation time is 15 minutes. Technique: The risks, benefits, and alternatives were discussed and informed consent was obtained. Prior to the beginning of the procedure, Fletcher Protocol was used to confirm the patient's identity and planned procedure. Patient's medications were reviewed. Maximum sterile barriers including cap, mask, hand hygiene, sterile gloves, sterile gown, and 2% chlorhexidine for cutaneous antisepsis were used. Under sterile conditions, the right internal jugular vein was evaluated with ultrasound and found to be readily compressible and free of thrombus. An image of the patent vein was recorded and placed in the patient chart. After infiltration with 1% lidocaine, the vessel was then punctured directly under ultrasound visualization with the needle seen entering through the anterior wall of the vessel. A guidewire was then advanced under fluoroscopy into the central circulation and the length between the access site and right atrium measured. After infiltrating the skin in the subclavicular region with 1% lidocaine, a short transverse incision was made and the catheter was tunneled to the access site and inserted through a peel-away sheath. The catheter length is 19 cm. Both the ports functioned well and easily aspirated and injected. The catheter was flushed with heparin. The venotomy site was closed with 2-0 Vicryl suture in a subcuticular stitch and the catheter was secured to the skin at the tunnel exit site with 2-0 Prolene suture. A Digital image documented final catheter tip position. One image was acquired. EBL: Minimal Condition: Stable Fluoroscopy time: 0.1 minutes Findings:The final fluoroscopic image demonstrates the catheter in good position with its tip at the midright atrium. Procedure Note Nehal Perez MD - 10/03/2019 Fluoroscopically and ultrasound guided right internal jugular tunneled central venous catheter placement Supervision of moderate conscious sedation Clinical indication: Renal failure Sedation: The procedure was performed with intravenous conscious sedation using 1 mg Versed and 50 mcg fentanyl. Sedation was continuously monitored independently by the radiology nurse for 15 minutes. Total sedation time is 15 minutes. Technique: The risks, benefits, and alternatives were discussed and informed consent was obtained. Prior to the beginning of the procedure, Fletcher Protocol was used to confirm the patient's identity and planned procedure. Patient's medications were reviewed. Maximum sterile barriers including cap, mask, hand hygiene, sterile gloves, sterile gown, and 2% chlorhexidine for cutaneous antisepsis were used. Under sterile conditions, the right internal jugular vein was evaluated with ultrasound and found to be readily compressible and free of thrombus. An image of the patent vein was recorded and placed in the patient chart. After infiltration with 1% lidocaine, the vessel was then punctured directly under ultrasound visualization with the needle seen entering through the anterior wall of the vessel. A guidewire was then advanced under fluoroscopy into the central circulation and the length between the access site and right atrium measured. After infiltrating the skin in the subclavicular region with 1% lidocaine, a short transverse incision was made and the catheter was tunneled to the access site and inserted through a peel-away sheath. The catheter length is 19 cm. Both the ports functioned well and easily aspirated and injected. The catheter was flushed with heparin. The venotomy site was closed with 2-0 Vicryl suture in a subcuticular stitch and the catheter was secured to the skin at the tunnel exit site with 2-0 Prolene suture. A Digital image documented final catheter tip position. One image was acquired. EBL: Minimal Condition: Stable Fluoroscopy time: 0.1 minutes Findings:The final fluoroscopic image demonstrates the catheter in good position with its tip at the midright atrium. IMPRESSION Successful right internal jugular vein ultrasound and fluoroscopically guided tunneled hemodialysis catheter placement as described above. The catheter is ready for immediate use. *Reading Radiologist: Nehal Perez on 10/03/2019 at 12:02 PM Lucio Singh MD IR ORDERABLES * (ABNORMAL) BASIC METABOLIC PANEL (CALCIUM TOTAL) (10/03/2019 3:43 AM CDT) Only the most recent of4 resultswithin the time period is included. Glucose 120(H) 70 - 105 mg/dL 10/03/2019 4:19 AM CDT [facility] Sodium 136 136 - 145 mmol/L 10/03/2019 4:19 AM CDT [facility] Potassium 5.1 3.5 - 5.1 mmol/L 10/03/2019 4:19 AM CDT [facility] Chloride 108(H) 98 - 107 mmol/L 10/03/2019 4:19 AM CDT [facility] CO2 12(L) 23 - 31 mmol/L 10/03/2019 4:19 AM CDT [facility] Calcium 8.2(L) 8.4 - 10.4 mg/dL 10/03/2019 4:19 AM CDT [facility] Anion Gap 16 8 - 16 mmol/L 10/03/2019 4:19 AM CDT [facility] BUN 112(H) 9.8 - 20.1 mg/dL 10/03/2019 4:19 AM CDT [facility] Creatinine 9.23(H) 0.57 - 1.11 mg/dL 10/03/2019 4:19 AM CDT [facility] eGFR by MDRD 4 mL/min/1.7 3m2 10/03/2019 4:19 AM CDT [facility] eGFR by MDRD 5 mL/min/1.7 3m2 10/03/2019 4:19 AM CDT [facility] Blood BLOOD SPECIMEN / Unknown Venipuncture / Unknown 10/03/2019 3:43 AM CDT 10/03/2019 3:56 AM CDT Allison Molina Higinio DO LAB - CHEMISTRY JEANETTE BOYKINENRIQUETA [facility] [address] [place] [address] * VAS BILAT MAPPING FOR HEMODIALYSIS (10/02/2019 1:31 PM CDT) Only the most recent of2 resultswithin the time period is included. Anatomical Region Laterality Modality Lower Extremity, Upper Extremity Ultrasound 10/02/2019 1:19 PM CDT Narrative Procedure Note Laci De Leon MD - 10/02/2019 [facility] [address] [address] [facility] [address], [address] [place] [address] Vessel Mapping for Hemodialysis Report Pat.Name: LEVY GISELE M Pat.ID: [id number] .Date: 10/02/2019 Refer.MD: ALEJANDRA COLES Exam Time: 1:19:00 PM Study Type:Vessel Mapping for Hemodialysis Age: 6 1945,73Y Sex: FEMALE Sonogrphr: Tee Egan RVT Pat. Stat.:Outpatient ICD - 9: N18.6 End stage renal disease CPT - 4: G0365 Procedures: Vessel Mapping for Hemodialysis Race: 2 Visit ID: [id number] ++++++++++++++++++++++++++++++++++++ SUMMARY: ++++++++++++++++++++++++++++++++++++ The left axillary vein is adequate for access. ++++++++++++++++++++++++++++++++++++ FINDINGS: ++++++++++++++++++++++++++++++++++++ Procedure: Duplex vein mapping was carried out in the left upper extremity. Study Quality: This study is of adequate technical quality. Mapping Lt: The left cephalic vein is not patent and compressible. The left basilic vein is patent and compressible. The left axillary vein measured .49 cm and the left basilic measured .45 cm. Signed 10/02/2019 03:41 PM Laci De Leon MD Lucio Singh MD VASCULAR LAB ORDER LISE * VAS DIALYSIS EXIST ACCESS SCAN (01/31/2019 2:41 PM CDT) Only the most recent of2 resultswithin the time period is included. Anatomical Region Laterality Modality Ultrasound 01/31/2019 2:16 PM CDT Narrative Procedure Note Marco Antonio Ramos MD - 01/31/2019 [facility] [place] [address], [address] [place] [address] Hemodialysis Graft Report Pat.Name: GISELE CENTENO Pat.ID: [id number] .Date: 01/31/2019 Exam Time: 2:16:00 PM Study Type:Hemodialysis Graft Age: 6 1945,73Y Sex: FEMALE Sonogrphr: Tee Egan RVT Pat. Stat.:Outpatient ICD - 9: N18.6 End stage renal disease CPT - 4: 36794 Procedures: AV Fistula Evaluation Visit ID: [id number] ++++++++++++++++++++++++++++++++++++ SUMMARY: ++++++++++++++++++++++++++++++++++++ Patent left upper AV fistula. ++++++++++++++++++++++++++++++++++++ FINDINGS: ++++++++++++++++++++++++++++++++++++ Procedure: B-mode imaging, color flow Doppler and spectral analysis were used to evaluate the AV fistula in the upper arm of the left upper extremity. Study Quality: This study is of adequate technical quality. Lt Arm: There is patent AV fistula involving the Lt cephalic vein and the brachial artery. The average diameter measured 5.2 mm proximally, 11.5 mm mid, and 7.1 mm distally. There were a few branches seen. Signed 01/31/2019 05:34 PM Marco Antonio Ramos MD Lucio Singh MD VASCULAR LAB ORDER LISE * (ABNORMAL) CULTURE URINE (09/16/2013 5:55 AM CDT) Culture Urine KLEBSIELLA PNEUMONIAE(A) [facility] Comment:1,000,000 CFU/ML Kle bsiella Pneumoniae Urine specimen (specimen) URINE SPECIMEN OBTAINED BY SINGLE CATHETERIZATION OF URINARY BLADDER / Unknown 09/16/2013 5:55 AM CDT 09/16/2013 4:26 PM CDT [facility] - 09/18/2013 9:37 AM CDT BlackSpecimen#[id number] Black Loc/Rm/Bed: ED// STRAIGHT U @09/16/13 0659: URINE CULTURE added. RFLXG = [facility]. Organism Antibiotic Method Susceptibility Klebsiella pneumoniae Amikacin SUSCEPTIBILITY <=2: Sensitive Klebsiella pneumoniae Ampicillin SUSCEPTIBILITY Resistant Klebsiella pneumoniae Ampicillin-sulbactam SUSCEPTIBIL ITY <=2: Sensitive Klebsiella pneumoniae Cefazolin SUSCEPTIBILITY <=4: Sensitive Klebsiella pneumoniae Cefepime SUSCEPTIBILITY <=1: Sensitive Klebsiella pneumoniae Ceftazidime SUSCEPTIBILITY <=1: Sensitive Klebsiella pneumoniae Ceftriaxone SUSCEPTIBILITY <=1: Sensitive Klebsiella pneumoniae Gentamicin SUSCEPTIBILITY <=1: Sensitive Klebsiella pneumoniae Imipenem SUSCEPTIBILITY <=0.25: Sensitive Klebsiella pneumoniae Levofloxacin SUSCEPTIBILITY <=0.12: Sensitive Klebsiella pneumoniae Nitrofurantoin SUSCEPTIBILITY <=16: Sensitive Klebsiella pneumoniae Piperacillin-tazobactam SUSCEPTI BILITY <=4: Sensitive Klebsiella pneumoniae Tobramycin SUSCEPTIBILITY <=1: Sensitive Klebsiella pneumoniae Trimethoprim-sulfa methoxazol e SUSCEPTIBILITY <=20: Sensitive Klebsiella pneumoniae Extended-Spectrum Beta-Lactamase SUSCEPTIBILITY Neg Historical Provider MD LAB - MICROBIOLOG Y ORDERABLES [address] [phone] Care Teams Cloth Weaver Relationship Specialty Start Date End Date Shahid Powell MD [address] [place] [address] PCP - General 10/05/10
--- OUTSIDE RECORDS SUMMARY | 2024-06-13 09:50 | XMS_ITS | Clinical Summary ---
Author Organization [facility] Address [address] [place] [address] Care Team Providers Care Night Assistant Name Role Phone Shahid Powell MD Primary Care Provider + Source Comments [facility],non-owned Affiliates and Associated Physician Practices is amultiple site organization consisting of ambulatory clinics and hospital sitesin [place], [place], [place] and [place]. This disclosure is being madepursuant to the Care Everywhere program and may not contain all information available regarding this patient. Last updated 18.[facility] Allergies Active Allergy Reactions Criticality Noted Date [...] Also one each snack 09/21/2020 Active B Alehnju-O-Qqxaz Acid (TRIPHROCAPS) 1 MG CAPS 10/19/2020 Active [...] bedtime Active Probiotic Product (TRUBIOTICS DIGEST + IMM HEALTH PO) Take 1 tablet by mouth [...] of arteriovenous dialysis fistula Clotted dialysis access Encounters Date Type Department Care Team Description 03/20/2024 1:32 PM BUN MACHINE OPERATOR - 03/20/2024 11:59 PM BUN MACHINE OPERATOR Hospital Encounter [facility] [address] [place] [address], [address] [place] [address] Lucio Singh MD Javed, Marnie Espinal, Marco Antonio Vázquez MD Majeed, M. Fazal, MD Halverson, Lewis C, MD Oak, David Nicole MD Discharge Disposition: Home or Self Care 03/20/2024 Travel from Last 3 Months Immunizations Name Administration Dates Next Due Covid Pfizer primary monoval ent 12+ yr 0.3mL Purple cap 07/24/2020,07/04/2020 HEP B VACCINE, ADULT 3 DOSE 01/31/2020,1 05/29/2018,11/23/2018,2018,09/28/2018 PNEUMOCOCCAL PPV VACCINE 05/08/2017 Family History Medical History Relation Name Comments Cancer - Colon Father Arthritis - Osteo Mother Depression Mother Diabetes - Gestational Mother Diabetes - Type 2 Mother Relation Name Status Comments Father Mother Sister Alive Social History Tobacco Use Types Packs/Day Years [...] Comments Blood Pressure 141/80 03/20/2024 2:25 PM BUN MACHINE OPERATOR Pulse 93 03/20/2024 2:25 PM BUN MACHINE OPERATOR Temperature 36.6 C (97.8 F) 03/20/2024 1:47 PM BUN MACHINE OPERATOR Respiratory Rate 10 03/20/2024 2:25 PM BUN MACHINE OPERATOR Oxygen Saturation 100% 03/20/2024 2:25 PM BUN MACHINE OPERATOR Inhaled Oxygen Concentration - - Weight 61.2 kg (135 lb) 03/20/2024 1:47 PM BUN MACHINE OPERATOR Height 139.7 cm (4' 7 ) 03/20/2024 1:47 PM BUN MACHINE OPERATOR Body Mass Index 31.38 03/20/2024 1:47 PM BUN MACHINE OPERATOR Plan of Treatment Upcoming Encounters Date Type Department Care Team (Late st Contact Info) Description 07/17/2024 2:45 PM CDT Appointment [facility] [address] [address] [facility] [address] [facility] [address], [address] [place] [address] [place] [address] [facility] [address] [place] [address] [place] [address] [place] [address] [place] [address] [facility] [address] [place] [address] Calvin Lynne MD [address] [place] [address] Ronald Rosas MD [address] [place] [address] [place] [address] [facility] [address] [place] [address] Health Maintenance Due Date Last Done Comments BONE DENSITY TESTING 1945 DTAP/TDAP/TD VACCINES (1 - Tdap) 10/14/1962 ZOSTER VACCINE (1 of 2) 10/14/1993 PNEUMOCOCCAL VACCINE 50+ (2 of 2 - PCV) 05/08/2018 05/08/2017 Respiratory Syncytial Virus (RSV) Vaccine Pt: or over 60 yrs (1 - 1-dose 75+ series) 10/14/2018 COVID-19 VACCINE (3 - season) 2024 07/24/2020, 07/04/2020 INFLUENZA VACCINE (#1) 2024 02/18/2018 DEPRESSION SCREENING 05/08/2024 MEDICARE AWV CALENDAR YEAR 2024 HEPATITIS B VACCINE Completed 01/31/2020, 03/29/2019, 11/23/2018, Additional history exists HIB VACCINE Aged Out No longer eligi ble based on patient's age to complete this topic HPV VACCINE Aged Out No longer eligi ble based on patient's age to complete this topic MENINGOCOCCAL (Group B) VACCINE Aged Out No longer eligible based on patient's age to complete this topic MENINGOCOCCAL VACCINE Aged Out No janet kyle eligible based on patient's age to complete this topic Medical Devices Implanted Type Area Reverberatory Skimmer Device Identifier Shelf Expiration Date Model / Serial / Lot Graft Vasc 4-7mm 40cm Grtx Std W[address] Tpr Ln - [id number] Implanted:Qty: 1 on 10/02/2019 by Lucio Singh MD at [facility] Left: [employer] 12/03/2023 [id number] / [id number] / Procedures Procedure Name Priority Date/Time Associated Diagnosis Comments CARDIAC RHYTHM STRIP ORDER 03/21/2024 6:24 PM BUN MACHINE OPERATOR IR ANGIO AV SHUNT IMAGING Routine 03/20/2024 2:18 PM BUN MACHINE OPERATOR Encounter regarding vascular access for dialysis for end-stage renal disease (HCC) from Last 3 Months Results * CARDIAC RHYTHM STRIP ORDER (03/21/2024 6:24 PM BUN MACHINE OPERATOR) Narrative 03/21/2024 6:24 PM BUN MACHINE OPERATOR Ordered by an unspecified provider. Scanned Document CARDIAC SERVICES ORD ERABLES * IR ANGIO AV SHUNT IMAGING (03/20/2024 2:18 PM BUN MACHINE OPERATOR) Anatomical Region Laterality Modality Lower Extremity, Upper Extremity, Chest X-Ray Angiography Narrative 03/20/2024 2:23 PM BUN MACHINE OPERATOR Calvin Lynne MD 03/20/2024 2:25 PM Surgeon: [...] central venous structures are unremarkable. A 6 Belarusian sheath was introduced and angioplasty of the venous anastomosis was performed using an 8 mm x 4 cm Conquest balloon. Reflux injection during balloon inflation demonstrated unremarkable arterial anastomosis. Contrast injection after angioplasty demonstrated no significant improvement at the stenosis. Subsequently the sheath was exchanged for an 8 Belarusian sheath. A 8 mm x 5 cm [...] Documents on File Type Date Recorded Patient Business Applications Analyst Expl anation Adv Directive/Living Will/POA 10/05/2018 9:04 PM * Full Code (Latest Code Status on File) Date Activated Date Inactivated Comments 10/02/2019 6:22 PM 10/07/2019 8:17 PM Care Teams Night Assistant Relationship Specialty Start Date End Date Shahid Powell MD [address] [address] PCP - General 10/05/10
--- OUTSIDE RECORDS SUMMARY | 2024-06-13 09:50 | XMS_ITS | Clinical Summary ---
Author Organization [facility] Address [address] [place] [address] Phone Care Team Providers Care Grey Iron Molder Name Role Phone Unavailable Primary Care Provider Unavailabl e Social History Tobacco Use Types Packs/Day Years Used Date Smoking Tobacco: Never Assessed Sex and Gender Information Value Date Recorded Sex Assigned at Not on file Gender Identity Not on file Sexual Orientation Not on file Plan of Treatment Health Maintenance Due Date Last Done Comments Pneumococcal PPSV23/PCV13 65 + Years / Low and Medium Risk (1 of 4 - PCV) 10/14/2008 Influenza Vaccine (#1) 2024
--- OUTSIDE RECORDS SUMMARY | 2024-06-13 09:50 | XMS_ITS | Clinical Summary ---
Author Organization [facility] Address [address] [place] [address] Care Team Providers Care Cnc Lathe Programmer Name Role Phone Unavailable Primary Care Provider Unavailabl e Allergies Active Allergy Reactions Criticality Noted Date Comments Ibuprofen GI Intolerance Low 06/16/2018 Medications atorvastatin (LIPITOR) 40 MG tablet Take 40 mg by mouth once a day. Active collagenase ointment Apply 1 application topically once a day. Active darbepoetin kade (ARANESP) 100 MCG/ML solution Inject 40 mcg under the skin every 7 days. Active dronabinol (MARINOL) 2.5 MG capsule Take 2.5 mg by mouth 2 (two) times daily - before breakfast and lunch. Active hydrALAZINE (APRESOLINE) 25 MG tablet Take 25 mg by mouth every 4 (four) hours as needed (pain). Active albuterol (ACCUNEB) (2.5 MG/3ML) 0.083% nebulizer solution Take 2.5 mg by nebulization every 4 (four) hours as needed for wheezing or shortness of breath. Active HYDROcodone-acet aminophen (NORCO) 5-325 MG per tabletIndication s:Pain 0.5 tablets every 4 (four) hours as needed for moderate pain (4 - 6). Active levothyroxine (SYNTHROID, LEVOTHROID) 112 MCG tablet 112 mcg Medrol Dose Pack use ONLY. Active pantoprazole (PROTONIX) 40 MG IV Inject 40 mg as directed 2 (two) times a day. Active polyethylene glycol (MIRALAX) packet Take 17 g by mouth daily as needed (constipation). Active artificial tears polyvinyl alcohol (LIQUIFILM TEARS) 1.4 % ophthalmic solution Administer 1 drop into both eyes 4 (four) times a day. Active ramelteon (ROZEREM) 8 MG tablet Take 8 mg by mouth nightly. Active sodium chloride (OCEAN) 0.65 % nasal spray Administer 1 spray into each nostril Every 2 hours as needed. for congestion. Active Heparin Sodium, Porcine, (HEPARIN, PORCINE,) 5000 UNIT/ML injection Inject 5,000 Units under the skin every 8 (eight) hours. Active Heparin Sodium, Porcine, (HEPARIN, PORCINE,) 1000 UNIT/ML injection 500 Units by Hemodialysis route every 1 (one) hour. Inject 0.5 ml (500 Units total) by dialysis circuit route every 1 (one) hour. Active ferrous sulfate 220 (44 Fe) MG/5ML solution 220 mg once a day. Active renal multivitamin Tab/Cap tab/cap Take 1 each by mouth once a day. 30 each 3 9 Active sertraline (ZOLOFT) 50 MG tablet 1 tablet (50 mg total) by PO/Per Tube route nightly. 30 tablet 9 Active simethicone (MYLICON) 80 MG chewable tablet 1 tablet (80 mg total) by PO/Per Tube route every 6 (six) hours as needed for flatulence (indigestion/gas ). 0 9 Active artificial tears polyvinyl alcohol (LIQUIFILM TEARS) 1.4 % ophthalmic solution Administer 1 drop into both eyes 4 (four) times a day. 15 mL 9 Active atorvastatin (LIPITOR) 40 MG tablet Take 1 tablet (40 mg total) by mouth once a day. 30 tablet 9 Active levothyroxine (SYNTHROID, LEVOTHROID) 112 MCG tablet Take 1 tablet (112 mcg total) by mouth Daily at 6am. 30 tablet 3 9 Active Active Problems Problem Noted Date Diagnosed Date Acute respiratory failure 06/17/2018 Immunizations Immunization Administration Dates Next Due Influenza, Unspecified 02/18/2018 Pneumococcal, Unspecified 05/08/2017 Family History Medical History Relation Name Comments Cancer Father Arthritis Mother Depression Mother Diabetes Mother Hearing loss Mother Heart disease Mother Mental illness Mother Vision loss Mother Relation Name Status Comments Father Mother Social History Tobacco Use Types Packs/Day Years Used Date Smoking Tobacco: Never Smokeless Tobacco: Never Alcohol Use Standard Drinks/Week Comments Never 0 (1 standard drink = 0.6 oz pur e alcohol) AUDIT-C Answer Date Recorded Frequency of Alcohol Consumption Never 06/07/2019 Average Number of Drinks Not on file 020 Frequency of Binge Drinking Not on file 05/10 Comments Unknown Sex and Gender Information Value Date Recorded Sex Assigned at Not on file Legal Sex Female 6:36 PM EST Gender Identity Not on file Sexual Orientation Not on file Last Filed Vital Signs Vital Sign Reading Time Taken Comments Blood Pressure 133/74 07/16/2018 4:45 PM CDT Pulse 100 07/16/2018 4:45 PM CDT Temperature 35.4 C (95.8 F) 07/16/2018 1:35 PM CDT Respiratory Rate 23 07/16/2018 4:45 PM CDT Oxygen Saturation 98% 07/16/2018 1:35 PM CDT Inhaled Oxygen Concentration - - Weight 74 kg (163 lb 2.3 oz) 07/11/2018 9:00 AM APPLIED COMPUTER SCIENCE PROFESSOR Height 139.7 cm (4' 7 ) 06/29/2018 2:21 PM APPLIED COMPUTER SCIENCE PROFESSOR Body Mass Index 37.92 06/29/2018 2:21 PM APPLIED COMPUTER SCIENCE PROFESSOR Plan of Treatment Not on file Advance Directives * Full Resuscitation (Latest Code Status on File) Date Activated Date Inactivated Comments 06/17/2018 11:21 AM 07/16/2018 11:52 PM * Full Resuscitation Date Activated Date Inactivated Comments 06/17/2018 5:54 AM 06/17/2018 11:21 AM
--- OUTSIDE RECORDS SUMMARY | 2024-06-13 09:50 | XMS_ITS | Encounter Summary ---
Author Organization [facility] Address [address] [place] [address] Care Team Providers Care Equip Maint Eng Name Role Phone Shahid Powell MD Primary Care Provider + Encounter Details Date Type Department Care Team (Late Contact Info) Description 09/27/2018 [facility] Out[facility] Visit [facility] [address] [place] [address] [place] [address] [facility] [address] [place] [address] Social History Tobacco Use Types Packs/Day Years Used Date Smoking Tobacco: Never Smokeless Tobacco: Never Alcohol Use Standard Drinks/Week Comments No 0 (1 standard drink = 0.6 oz pur e alcohol) Sex and Gender Information Value Date Recorded Sex Assigned at Not on file Gender Identity Not on file Sexual Orientation Not on file documented as of this encounter Plan of Treatment Upcoming Encounters Date Type Department Care Team ([facility] Contact Info) Description 07/17/2024 2:45 PM CDT Appointment [facility] [address] [facility], [address] [place] [address] [place] [address] [facility] [address] [place] [address] [place] [address] [address] [place] [address] [facility] [address] [place] [address] Calvin Lynne MD [address] [place] [address] Ronald Rosas MD [address] [place] [address] [place] [address] [facility] [address] [place] [phone] documented as of this encounter Visit Diagnoses Not on filedocumented in this encounter Care Teams Equip Maint Eng Relationship Specialty Start Date End Date Shahid Powell MD [address] [facility] [address] [place] [address] PCP - General 10/05/10 documented as of this encounter
--- NOTE | 2024-06-13 13:04 | ED.GENADULT ---
HPI - General Adult General Chief complaint: Recheck/Abnormal Lab/Rx <CANDY Goodwin Last Filed: 06/13/24 13:14> Stated complaint: low O2 <CANDY Goodwin Last Filed: 06/13/24 13:14> Time Seen by Provider: 06/13/24 13:06 <CANDY Goodwin Last Filed: 06/13/24 13:14> Focused HPI: Patient is an 78 y/o female, with PMH ESRD on HD //Mon, who presents to the ED via EMS with c/o low SaO2. Patient's daughter at bedside assisted in providing information. Reports patient was diagnosed with Influenza A on Monday via home test. Several other family members have had influenza and covid at home. Patient chronically wears 3L NC. Daughter states yesterday, O2 dropped down to 79%. Patient was feeling very short of breath. They increased her O2 to 5L. Patient then attempted to go to dialysis today and her oxygen was low again. Sent here for further evaluation. She did not receive her dialysis treatment today. Patient has had persistent cough, reports cp with coughing. No fevers. GENERAL: Elderly, frail, and in no acute distress. HEAD: Normocephalic, atraumatic. CHEST: No significant respiratory distress. On 3L NC. Rhonchi in bases bilaterally. Occasional expiratory wheezing. HEART: Regular rate and rhythm.? NEURO: ?Alert and oriented x3. Patient screened in triage and initial orders placed.? ?Additional care and disposition to be based upon?diagnostic testing and treatment. <Jessenia Drew PA-C - Last Filed: 06/13/24 13:14> Source: patient and family <CANDY Goodwin Last Filed: 06/13/24 13:14> Mode of arrival: EMS <CANDY Goodwin Last Filed: 06/13/24 13:14> Limitations: no limitations <CANDY Goodwin Last Filed: 06/13/24 13:14> History of Present Illness HPI narrative: Patient 78-year-old female who presents emergency department with chief complaint of low oxygen saturations. Patient diagnosed with influenza a on Monday reports that she had to turn up her oxygen to 5 L from baseline of 3 L the patient went to dialysis today and was sent to the emergency department for evaluation as she was saturating 70s <Jose Antonio Retana MD - Last Filed: 06/13/24 17:01> Related Data Home medications: Home Medications ?Medication ?Instructions ?Recorded ?Confirmed ?Last Taken ?Type docusate sodium 100 mg capsule 100 mg PO BID 12/04/21 01/26/24 11/06/23 09:00 History (Colace) vitamin B complex and vitamin C 1 cap PO DAILY 12/04/21 01/26/24 11/06/23 09:00 History no.20-folic acid 1 mg capsule (Triphrocaps) cholecalciferol (vitamin D3) 50 50 mcg PO DAILY 01/11/22 01/26/24 11/06/23 09:00 History mcg (2,000 unit) capsule melatonin 3 mg capsule 3 mg PO QHS 01/11/22 01/26/24 11/05/23 21:00 History vitamin E (dl, acetate) 180 mg 180 mg PO DAILY 01/11/22 01/26/24 11/06/23 09:00 History (400 unit) capsule atorvastatin 40 mg tablet 40 mg PO DAILY 10/12/23 01/26/24 11/06/23 09:00 History sertraline 50 mg tablet 50 mg PO HS 11/06/23 01/26/24 11/05/23 21:00 History linagliptin 5 mg tablet (Tradjenta) 5 mg PO DAILY 01/26/24 01/26/24 Unknown History ondansetron 4 mg disintegrating 4 mg PO QID PRN Nausea 01/26/24 01/26/24 Unknown History tablet <Jessenia Drew PA-C - Last Filed: 06/13/24 13:14> Allergies/adverse reactions: Allergies Allergy/AdvReac Type Severity Reaction Status Date / Time ibuprofen AdvReac Mild Abdominal Verified 01/31/24 12:44 Pain <Jessenia Drew PA-C - Last Filed: 06/13/24 13:14> Review of Systems Review of Systems: A 10 system review of systems was completed on the patient and is negative except for what is stated in the HPI. Nursing and ancillary documentation was reviewed. <Jose Antonio Retana MD - Last Filed: 06/13/24 17:01> [facility] Past Medical History Medical History: Medical History Primary localized osteoarthritis of knees, bilateral Pneumonia Depression Hypothyroidism Gout Arthritis Nephrolithiasis Chronic kidney disease <Jessenia Drew PA-C - Last Filed: 06/13/24 13:14> Surgical History Surgical History: Surgical History H/O inguinal hernia repair Hx of tonsillectomy <Jessenia Drew PA-C - Last Filed: 06/13/24 13:14> Family History Family History: Family History Other Diabetes mellitus Heart disease Hypertension <Jessenia Drew PA-C - Last Filed: 06/13/24 13:14> Social History Social History: Social History Social History: Patient lives with her daughter, grandson daughter's kids and her daughter daughters kids. Patient's did of diabetes in 1985. Patient wishes to be a full code does like her daughter to be her surrogate. She also does have 3 dogs and 2 cats that live with her as well. 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 HEAD: Normocephalic, atraumatic. EYES: PERRLA and EOMI. ENT: Nares clear, no rhinorrhea or epistaxis. Mucous membranes moist. NECK: Supple. CHEST: Clear to auscultation. No respiratory distress. HEART: Regular rate and rhythm. No murmur heard. Normal peripheral pulses. ABDOMEN: Soft, nontender, nondistended, normal active bowel sounds. EXTREMITIES: Normal range of motion. No edema. SKIN: Warm, dry, no rash. NEURO: No focal deficits. Alert and oriented x3. PSYCH: Normal mood and affect. <Jose Antonio Retana MD - Last Filed: 06/13/24 17:01> Course Vital Signs Vital signs: Vital Signs Temperature 36.6 C 06/13/24 09:45 Pulse Rate 83 06/13/24 09:45 Respiratory Rate 18 06/13/24 09:45 Blood Pressure 123/89 06/13/24 09:45 Pulse Oximetry 100 06/13/24 09:45 Oxygen Delivery Nasal Cannula 06/13/24 09:45 Oxygen Flow Rate 3 06/13/24 09:45 Temperature 36.6 C 06/13/24 09:45 Pulse Rate 83 06/13/24 09:45 Respiratory Rate 18 06/13/24 09:45 Blood Pressure 123/89 06/13/24 09:45 Pulse Oximetry 100 06/13/24 09:45 Oxygen Delivery Nasal Cannula 06/13/24 09:45 Oxygen Flow Rate 3 06/13/24 09:45 <Jessenia Drew PA-C - Last Filed: 06/13/24 13:14> Vital Signs Temperature 36.6 C 06/13/24 09:45 Pulse Rate 83 06/13/24 09:45 Respiratory Rate 18 06/13/24 09:45 Blood Pressure 123/89 06/13/24 09:45 Pulse Oximetry 100 06/13/24 09:45 Oxygen Delivery Nasal Cannula 06/13/24 09:45 Oxygen Flow Rate 3 06/13/24 09:45 Temperature 36.6 C 06/13/24 09:45 Pulse Rate 83 06/13/24 09:45 Respiratory Rate 18 06/13/24 09:45 Blood Pressure 123/89 06/13/24 09:45 Pulse Oximetry 100 06/13/24 09:45 Oxygen Delivery Nasal Cannula 06/13/24 09:45 Oxygen Flow Rate 3 06/13/24 09:45 <Jose Antonio Retana MD - Last Filed: 06/13/24 17:01> Medical Decision Making MDM Narrative Medical decision making narrative: MSE by DIPESH in triage. <Jesseina Drew PA-C - Last Filed: 06/13/24 13:14> MSE by DIPESH in triage. Differential diagnosis includes pneumonia, viral illness, pulmonary embolism, fluid overload Laboratory studies were obtained showed normal potassium normal CO2. Chest x-ray showed multifocal pneumonia. CTA showed no evidence of pulmonary embolism but did redemonstrate multifocal pneumonia. The patient is positive for both COVID and flu the case was discussed with Nephrology and also discussed with the hospitalist patient will be admitted further care <Jose Antonio Retana MD - Last Filed: 06/13/24 17:01> Vital Signs Vital Signs: Vital Signs Temperature 36.6 C 06/13/24 09:45 Pulse Rate 83 06/13/24 09:45 Respiratory Rate 18 06/13/24 09:45 Blood Pressure 123/89 06/13/24 09:45 Pulse Oximetry 100 06/13/24 09:45 Oxygen Delivery Nasal Cannula 06/13/24 09:45 Oxygen Flow Rate 3 06/13/24 09:45 Temperature 36.6 C 06/13/24 09:45 Pulse Rate 83 06/13/24 09:45 Respiratory Rate 18 06/13/24 09:45 Blood Pressure 123/89 06/13/24 09:45 Pulse Oximetry 100 06/13/24 09:45 Oxygen Delivery Nasal Cannula 06/13/24 09:45 Oxygen Flow Rate 3 06/13/24 09:45 <Jessenia Drew PA-C - Last Filed: 06/13/24 13:14> Vital Signs Temperature 36.6 C 06/13/24 09:45 Pulse Rate 83 06/13/24 09:45 Respiratory Rate 18 06/13/24 09:45 Blood Pressure 123/89 06/13/24 09:45 Pulse Oximetry 100 06/13/24 09:45 Oxygen Delivery Nasal Cannula 06/13/24 09:45 Oxygen Flow Rate 3 06/13/24 09:45 Temperature 36.6 C 06/13/24 09:45 Pulse Rate 83 06/13/24 09:45 Respiratory Rate 18 06/13/24 09:45 Blood Pressure 123/89 06/13/24 09:45 Pulse Oximetry 100 06/13/24 09:45 Oxygen Delivery Nasal Cannula 06/13/24 09:45 Oxygen Flow Rate 3 06/13/24 09:45 <Jose Antonio Retana MD - Last Filed: 06/13/24 17:01> Lab Data Result diagrams: 06/13/24 13:13 06/13/24 13:13 <Jessenia Drew PA-C - Last Filed: 06/13/24 13:14> Labs: Lab Results 06/13/24 06/13/24 06/13/24 Range/Units 13:13 13:13 13:13 WBC 3.0 L (4.5-10.0) K/mm3 RBC 3.54 L (4.2-5.4) M/mm3 Hgb 10.9 L (12.0-15.0) g/dL Hct 36.9 L (37.0-47.0) % MCV 104.2 H (80-100) fl MCH 30.8 (26-34) pg MCHC 29.5 L (32-36) g/dl RDW 15.7 H (11.5-14.5) % Plt Count 57 L D (150-375) k/mm3 MPV 11.0 H (7.4-10.4) fl Immature Gran % (Auto) Not Reportable Neut % (Auto) Not Reportable Lymph % (Auto) Not Reportable [place] % (Auto) Not Reportable Eos % (Auto) Not Reportable Baso % (Auto) Not Reportable Lymph # (Auto) Not Reportable [place] # (Auto) Not Reportable Eos # (Auto) Not Reportable Baso # (Auto) Not Reportable Abs Immat Gran (auto) Not Reportable Absolute Neuts (auto) Not Reportable Absolute Nucleated RBC Not Reportable Total Counted 100 Neutrophils % (Manual) 74 H (46-73) % Band Neutrophils % 9 H (0-6) % Lymphocytes % (Manual) 11.0 L (18-44) % Monocytes % (Manual) 4 (3-9) % Basophils % (Manual) 2 H (0-1) % Nucleated RBC % Not Reportable Abs Neuts (Manual) 2.49 (1.7-7.2) K/mm3 Abs Lymphs (Manual) 0.33 L (1.1-4.5) K/mm3 Abs Monocytes (Manual) 0.12 (0.1-0.90) K/mm3 Abs Basophils (Manual) 0.06 (0.0-0.1) K/mm3 Platelet Estimate Decreased (Adequate) % Immature Plt Fraction 5.6 (0.9-11.2) % Hypochromasia 1+ Schistocytes None seen PT 13.6 (11.1-14.7) Seconds INR 1.0 APTT 34.8 (22.3-36.8) Seconds D-Dimer 1.48 H (<0.48) ug/mL Sodium Cancelled 136 L Potassium Cancelled 4.4 Chloride Cancelled Carbon Dioxide Anion Gap BUN Creatinine Estim Creat Clear Calc Estimated GFR Glucose Calcium Magnesium (1.6-2.3) mg/dL Total Bilirubin AST ALT Alkaline Phosphatase Troponin I (0.000-0.034) ng/mL NT-Pro-B Natriuret Pep Total Protein Albumin Influenza A (RT-PCR) (Negative) Influenza B (RT-PCR) (Negative) RSV (RT-PCR) (Negative) SARS-CoV-2 RNA (RT-PCR) (Negative) 06/13/24 06/13/24 06/13/24 Range/Units 13:13 13:13 13:13 WBC (4.5-10.0) K/mm3 RBC (4.2-5.4) M/mm3 Hgb (12.0-15.0) g/dL Hct (37.0-47.0) % MCV (80-100) fl MCH (26-34) pg MCHC (32-36) g/dl RDW (11.5-14.5) % Plt Count (150-375) k/mm3 MPV (7.4-10.4) fl Immature Gran % (Auto) Neut % (Auto) Lymph % (Auto) [place] % (Auto) Eos % (Auto) Baso % (Auto) Lymph # (Auto) [place] # (Auto) Eos # (Auto) Baso # (Auto) Abs Immat Gran (auto) Absolute Neuts (auto) Absolute Nucleated RBC Total Counted Neutrophils % (Manual) (46-73) % Band Neutrophils % (0-6) % Lymphocytes % (Manual) (18-44) % Monocytes % (Manual) (3-9) % Basophils % (Manual) (0-1) % Nucleated RBC % Abs Neuts (Manual) (1.7-7.2) K/mm3 Abs Lymphs (Manual) (1.1-4.5) K/mm3 Abs Monocytes (Manual) (0.1-0.90) K/mm3 Abs Basophils (Manual) (0.0-0.1) K/mm3 Platelet Estimate (Adequate) % Immature Plt Fraction (0.9-11.2) % Hypochromasia Schistocytes PT (11.1-14.7) Seconds INR APTT (22.3-36.8) Seconds D-Dimer (<0.48) ug/mL Sodium Potassium Chloride 94 L Carbon Dioxide Cancelled 31 H Anion Gap Cancelled 11 BUN Cancelled Creatinine Estim Creat Clear Calc Estimated GFR Glucose Calcium Magnesium (1.6-2.3) mg/dL Total Bilirubin AST ALT Alkaline Phosphatase Troponin I (0.000-0.034) ng/mL NT-Pro-B Natriuret Pep Total Protein Albumin Influenza A (RT-PCR) (Negative) Influenza B (RT-PCR) (Negative) RSV (RT-PCR) (Negative) SARS-CoV-2 RNA (RT-PCR) (Negative) 06/13/24 06/13/24 06/13/24 Range/Units 13:13 13:13 13:13 WBC (4.5-10.0) K/mm3 RBC (4.2-5.4) M/mm3 Hgb (12.0-15.0) g/dL Hct (37.0-47.0) % MCV (80-100) fl MCH (26-34) pg MCHC (32-36) g/dl RDW (11.5-14.5) % Plt Count (150-375) k/mm3 MPV (7.4-10.4) fl Immature Gran % (Auto) Neut % (Auto) Lymph % (Auto) [place] % (Auto) Eos % (Auto) Baso % (Auto) Lymph # (Auto) [place] # (Auto) Eos # (Auto) Baso # (Auto) Abs Immat Gran (auto) Absolute Neuts (auto) Absolute Nucleated RBC Total Counted Neutrophils % (Manual) (46-73) % Band Neutrophils % (0-6) % Lymphocytes % (Manual) (18-44) % Monocytes % (Manual) (3-9) % Basophils % (Manual) (0-1) % Nucleated RBC % Abs Neuts (Manual) (1.7-7.2) K/mm3 Abs Lymphs (Manual) (1.1-4.5) K/mm3 Abs Monocytes (Manual) (0.1-0.90) K/mm3 Abs Basophils (Manual) (0.0-0.1) K/mm3 Platelet Estimate (Adequate) % Immature Plt Fraction (0.9-11.2) % Hypochromasia Schistocytes PT (11.1-14.7) Seconds INR APTT (22.3-36.8) Seconds D-Dimer (<0.48) ug/mL Sodium Potassium Chloride Carbon Dioxide Anion Gap BUN 57 H D Creatinine Cancelled 6.71 H Estim Creat Clear Calc Cancelled Not Reportable Estimated GFR Cancelled Glucose Calcium Magnesium (1.6-2.3) mg/dL Total Bilirubin AST ALT Alkaline Phosphatase Troponin I (0.000-0.034) ng/mL NT-Pro-B Natriuret Pep Total Protein Albumin Influenza A (RT-PCR) (Negative) Influenza B (RT-PCR) (Negative) RSV (RT-PCR) (Negative) SARS-CoV-2 RNA (RT-PCR) (Negative) 06/13/24 06/13/24 06/13/24 Range/Units 13:13 13:13 13:13 WBC (4.5-10.0) K/mm3 RBC (4.2-5.4) M/mm3 Hgb (12.0-15.0) g/dL Hct (37.0-47.0) % MCV (80-100) fl MCH (26-34) pg MCHC (32-36) g/dl RDW (11.5-14.5) % Plt Count (150-375) k/mm3 MPV (7.4-10.4) fl Immature Gran % (Auto) Neut % (Auto) Lymph % (Auto) Glass[place] % (Auto) Eos % (Auto) Baso % (Auto) Lymph # (Auto) [place] # (Auto) Eos # (Auto) Baso # (Auto) Abs Immat Gran (auto) Absolute Neuts (auto) Absolute Nucleated RBC Total Counted Neutrophils % (Manual) (46-73) % Band Neutrophils % (0-6) % Lymphocytes % (Manual) (18-44) % Monocytes % (Manual) (3-9) % Basophils % (Manual) (0-1) % Nucleated RBC % Abs Neuts (Manual) (1.7-7.2) K/mm3 Abs Lymphs (Manual) (1.1-4.5) K/mm3 Abs Monocytes (Manual) (0.1-0.90) K/mm3 Abs Basophils (Manual) (0.0-0.1) K/mm3 Platelet Estimate (Adequate) % Immature Plt Fraction (0.9-11.2) % Hypochromasia Schistocytes PT (11.1-14.7) Seconds INR APTT (22.3-36.8) Seconds D-Dimer (<0.48) ug/mL Sodium Potassium Chloride Carbon Dioxide Anion Gap BUN Creatinine Estim Creat Clear Calc Estimated GFR 6 L Glucose Cancelled 77 Calcium Cancelled 8.1 L Magnesium 2.5 H (1.6-2.3) mg/dL Total Bilirubin Cancelled AST ALT Alkaline Phosphatase Troponin I (0.000-0.034) ng/mL NT-Pro-B Natriuret Pep Total Protein Albumin Influenza A (RT-PCR) (Negative) Influenza B (RT-PCR) (Negative) RSV (RT-PCR) (Negative) SARS-CoV-2 RNA (RT-PCR) (Negative) 06/13/24 06/13/24 06/13/24 Range/Units 13:13 13:13 13:13 WBC (4.5-10.0) K/mm3 RBC (4.2-5.4) M/mm3 Hgb (12.0-15.0) g/dL Hct (37.0-47.0) % MCV (80-100) fl MCH (26-34) pg MCHC (32-36) g/dl RDW (11.5-14.5) % Plt Count (150-375) k/mm3 MPV (7.4-10.4) fl Immature Gran % (Auto) Neut % (Auto) Lymph % (Auto) [place] % (Auto) Eos % (Auto) Baso % (Auto) Lymph # (Auto) [place] # (Auto) Eos # (Auto) Baso # (Auto) Abs Immat Gran (auto) Absolute Neuts (auto) Absolute Nucleated RBC Total Counted Neutrophils % (Manual) (46-73) % Band Neutrophils % (0-6) % Lymphocytes % (Manual) (18-44) % Monocytes % (Manual) (3-9) % Basophils % (Manual) (0-1) % Nucleated RBC % Abs Neuts (Manual) (1.7-7.2) K/mm3 Abs Lymphs (Manual) (1.1-4.5) K/mm3 Abs Monocytes (Manual) (0.1-0.90) K/mm3 Abs Basophils (Manual) (0.0-0.1) K/mm3 Platelet Estimate (Adequate) % Immature Plt Fraction (0.9-11.2) % Hypochromasia Schistocytes PT (11.1-14.7) Seconds INR APTT (22.3-36.8) Seconds D-Dimer (<0.48) ug/mL Sodium Potassium Chloride Carbon Dioxide Anion Gap BUN Creatinine Estim Creat Clear Calc Estimated GFR Glucose Calcium Magnesium (1.6-2.3) mg/dL Total Bilirubin 0.6 AST Cancelled 48 H ALT Cancelled 21 Alkaline Phosphatase Cancelled Troponin I (0.000-0.034) ng/mL NT-Pro-B Natriuret Pep Total Protein Albumin Influenza A (RT-PCR) (Negative) Influenza B (RT-PCR) (Negative) RSV (RT-PCR) (Negative) SARS-CoV-2 RNA (RT-PCR) (Negative) 06/13/24 06/13/24 06/13/24 Range/Units 13:13 13:13 13:13 WBC (4.5-10.0) K/mm3 RBC (4.2-5.4) M/mm3 Hgb (12.0-15.0) g/dL Hct (37.0-47.0) % MCV (80-100) fl MCH (26-34) pg MCHC (32-36) g/dl RDW (11.5-14.5) % Plt Count (150-375) k/mm3 MPV (7.4-10.4) fl Immature Gran % (Auto) Neut % (Auto) Lymph % (Auto) [place] % (Auto) Eos % (Auto) Baso % (Auto) Lymph # (Auto) [place] # (Auto) Eos # (Auto) Baso # (Auto) Abs Immat Gran (auto) Absolute Neuts (auto) Absolute Nucleated RBC Total Counted Neutrophils % (Manual) (46-73) % Band Neutrophils % (0-6) % Lymphocytes % (Manual) (18-44) % Monocytes % (Manual) (3-9) % Basophils % (Manual) (0-1) % Nucleated RBC % Abs Neuts (Manual) (1.7-7.2) K/mm3 Abs Lymphs (Manual) (1.1-4.5) K/mm3 Abs Monocytes (Manual) (0.1-0.90) K/mm3 Abs Basophils (Manual) (0.0-0.1) K/mm3 Platelet Estimate (Adequate) % Immature Plt Fraction (0.9-11.2) % Hypochromasia Schistocytes PT (11.1-14.7) Seconds INR APTT (22.3-36.8) Seconds D-Dimer (<0.48) ug/mL Sodium Potassium Chloride Carbon Dioxide Anion Gap BUN Creatinine Estim Creat Clear Calc Estimated GFR Glucose Calcium Magnesium (1.6-2.3) mg/dL Total Bilirubin AST ALT Alkaline Phosphatase 144 H Troponin I 0.402 H* (0.000-0.034) ng/mL NT-Pro-B Natriuret Pep Cancelled > 10022 H Total Protein Cancelled 7.0 Albumin Cancelled Influenza A (RT-PCR) (Negative) Influenza B (RT-PCR) (Negative) RSV (RT-PCR) (Negative) SARS-CoV-2 RNA (RT-PCR) (Negative) 06/13/24 Range/Units 13:13 WBC (4.5-10.0) K/mm3 RBC (4.2-5.4) M/mm3 Hgb (12.0-15.0) g/dL Hct (37.0-47.0) % MCV (80-100) fl MCH (26-34) pg MCHC (32-36) g/dl RDW (11.5-14.5) % Plt Count (150-375) k/mm3 MPV (7.4-10.4) fl Immature Gran % (Auto) Neut % (Auto) Lymph % (Auto) [place] % (Auto) Eos % (Auto) Baso % (Auto) Lymph # (Auto) [place] # (Auto) Eos # (Auto) Baso # (Auto) Abs Immat Gran (auto) Absolute Neuts (auto) Absolute Nucleated RBC Total Counted Neutrophils % (Manual) (46-73) % Band Neutrophils % (0-6) % Lymphocytes % (Manual) (18-44) % Monocytes % (Manual) (3-9) % Basophils % (Manual) (0-1) % Nucleated RBC % Abs Neuts (Manual) (1.7-7.2) K/mm3 Abs Lymphs (Manual) (1.1-4.5) K/mm3 Abs Monocytes (Manual) (0.1-0.90) K/mm3 Abs Basophils (Manual) (0.0-0.1) K/mm3 Platelet Estimate (Adequate) % Immature Plt Fraction (0.9-11.2) % Hypochromasia Schistocytes PT (11.1-14.7) Seconds INR APTT (22.3-36.8) Seconds D-Dimer (<0.48) ug/mL Sodium Potassium Chloride Carbon Dioxide Anion Gap BUN Creatinine Estim Creat Clear Calc Estimated GFR Glucose Calcium Magnesium (1.6-2.3) mg/dL Total Bilirubin AST ALT Alkaline Phosphatase Troponin I (0.000-0.034) ng/mL NT-Pro-B Natriuret Pep Total Protein Albumin 3.9 Influenza A (RT-PCR) Positive A (Negative) Influenza B (RT-PCR) Negative (Negative) RSV (RT-PCR) Negative (Negative) SARS-CoV-2 RNA (RT-PCR) Positive A (Negative) <Jessenia Drew PA-C - Last Filed: 06/13/24 13:14> Lab Results 06/13/24 06/13/24 06/13/24 Range/Units 13:13 13:13 13:13 WBC 3.0 L (4.5-10.0) K/mm3 RBC 3.54 L (4.2-5.4) M/mm3 Hgb 10.9 L (12.0-15.0) g/dL Hct 36.9 L (37.0-47.0) % MCV 104.2 H (80-100) fl MCH 30.8 (26-34) pg MCHC 29.5 L (32-36) g/dl RDW 15.7 H (11.5-14.5) % Plt Count 57 L D (150-375) k/mm3 MPV 11.0 H (7.4-10.4) fl Immature Gran % (Auto) Not Reportable Neut % (Auto) Not Reportable Lymph % (Auto) Not Reportable [place] % (Auto) Not Reportable Eos % (Auto) Not Reportable Baso % (Auto) Not Reportable Lymph # (Auto) Not Reportable [place] # (Auto) Not Reportable Eos # (Auto) Not Reportable Baso # (Auto) Not Reportable Abs Immat Gran (auto) Not Reportable Absolute Neuts (auto) Not Reportable Absolute Nucleated RBC Not Reportable Total Counted 100 Neutrophils % (Manual) 74 H (46-73) % Band Neutrophils % 9 H (0-6) % Lymphocytes % (Manual) 11.0 L (18-44) % Monocytes % (Manual) 4 (3-9) % Basophils % (Manual) 2 H (0-1) % Nucleated RBC % Not Reportable Abs Neuts (Manual) 2.49 (1.7-7.2) K/mm3 Abs Lymphs (Manual) 0.33 L (1.1-4.5) K/mm3 Abs Monocytes (Manual) 0.12 (0.1-0.90) K/mm3 Abs Basophils (Manual) 0.06 (0.0-0.1) K/mm3 Platelet Estimate Decreased (Adequate) % Immature Plt Fraction 5.6 (0.9-11.2) % Hypochromasia 1+ Schistocytes None seen PT 13.6 (11.1-14.7) Seconds INR 1.0 APTT 34.8 (22.3-36.8) Seconds D-Dimer 1.48 H (<0.48) ug/mL Sodium Cancelled 136 L Potassium Cancelled 4.4 Chloride Cancelled Carbon Dioxide Anion Gap BUN Creatinine Estim Creat Clear Calc Estimated GFR Glucose Calcium Magnesium (1.6-2.3) mg/dL Total Bilirubin AST ALT Alkaline Phosphatase Troponin I (0.000-0.034) ng/mL NT-Pro-B Natriuret Pep Total Protein Albumin Influenza A (RT-PCR) (Negative) Influenza B (RT-PCR) (Negative) RSV (RT-PCR) (Negative) SARS-CoV-2 RNA (RT-PCR) (Negative) 06/13/24 06/13/24 06/13/24 Range/Units 13:13 13:13 13:13 WBC (4.5-10.0) K/mm3 RBC (4.2-5.4) M/mm3 Hgb (12.0-15.0) g/dL Hct (37.0-47.0) % MCV (80-100) fl MCH (26-34) pg MCHC (32-36) g/dl RDW (11.5-14.5) % Plt Count (150-375) k/mm3 MPV (7.4-10.4) fl Immature Gran % (Auto) Neut % (Auto) Lymph % (Auto) [place] % (Auto) Eos % (Auto) Baso % (Auto) Lymph # (Auto) [place] # (Auto) Eos # (Auto) Baso # (Auto) Abs Immat Gran (auto) Absolute Neuts (auto) Absolute Nucleated RBC Total Counted Neutrophils % (Manual) (46-73) % Band Neutrophils % (0-6) % Lymphocytes % (Manual) (18-44) % Monocytes % (Manual) (3-9) % Basophils % (Manual) (0-1) % Nucleated RBC % Abs Neuts (Manual) (1.7-7.2) K/mm3 Abs Lymphs (Manual) (1.1-4.5) K/mm3 Abs Monocytes (Manual) (0.1-0.90) K/mm3 Abs Basophils (Manual) (0.0-0.1) K/mm3 Platelet Estimate (Adequate) % Immature Plt Fraction (0.9-11.2) % Hypochromasia Schistocytes PT (11.1-14.7) Seconds INR APTT (22.3-36.8) Seconds D-Dimer (<0.48) ug/mL Sodium Potassium Chloride 94 L Carbon Dioxide Cancelled 31 H Anion Gap Cancelled 11 BUN Cancelled Creatinine Estim Creat Clear Calc Estimated GFR Glucose Calcium Magnesium (1.6-2.3) mg/dL Total Bilirubin AST ALT Alkaline Phosphatase Troponin I (0.000-0.034) ng/mL NT-Pro-B Natriuret Pep Total Protein Albumin Influenza A (RT-PCR) (Negative) Influenza B (RT-PCR) (Negative) RSV (RT-PCR) (Negative) SARS-CoV-2 RNA (RT-PCR) (Negative) 06/13/24 06/13/24 06/13/24 Range/Units 13:13 13:13 13:13 WBC (4.5-10.0) K/mm3 RBC (4.2-5.4) M/mm3 Hgb (12.0-15.0) g/dL Hct (37.0-47.0) % MCV (80-100) fl MCH (26-34) pg MCHC (32-36) g/dl RDW (11.5-14.5) % Plt Count (150-375) k/mm3 MPV (7.4-10.4) fl Immature Gran % (Auto) Neut % (Auto) Lymph % (Auto) [place] % (Auto) Eos % (Auto) Baso % (Auto) Lymph # (Auto) [place] # (Auto) Eos # (Auto) Baso # (Auto) Abs Immat Gran (auto) Absolute Neuts (auto) Absolute Nucleated RBC Total Counted Neutrophils % (Manual) (46-73) % Band Neutrophils % (0-6) % Lymphocytes % (Manual) (18-44) % Monocytes % (Manual) (3-9) % Basophils % (Manual) (0-1) % Nucleated RBC % Abs Neuts (Manual) (1.7-7.2) K/mm3 Abs Lymphs (Manual) (1.1-4.5) K/mm3 Abs Monocytes (Manual) (0.1-0.90) K/mm3 Abs Basophils (Manual) (0.0-0.1) K/mm3 Platelet Estimate (Adequate) % Immature Plt Fraction (0.9-11.2) % Hypochromasia Schistocytes PT (11.1-14.7) Seconds INR APTT (22.3-36.8) Seconds D-Dimer (<0.48) ug/mL Sodium Potassium Chloride Carbon Dioxide Anion Gap BUN 57 H D Creatinine Cancelled 6.71 H Estim Creat Clear Calc Cancelled Not Reportable Estimated GFR Cancelled Glucose Calcium Magnesium (1.6-2.3) mg/dL Total Bilirubin AST ALT Alkaline Phosphatase Troponin I (0.000-0.034) ng/mL NT-Pro-B Natriuret Pep Total Protein Albumin Influenza A (RT-PCR) (Negative) Influenza B (RT-PCR) (Negative) RSV (RT-PCR) (Negative) SARS-CoV-2 RNA (RT-PCR) (Negative) 06/13/24 06/13/24 06/13/24 Range/Units 13:13 13:13 13:13 WBC (4.5-10.0) K/mm3 RBC (4.2-5.4) M/mm3 Hgb (12.0-15.0) g/dL Hct (37.0-47.0) % MCV (80-100) fl MCH (26-34) pg MCHC (32-36) g/dl RDW (11.5-14.5) % Plt Count (150-375) k/mm3 MPV (7.4-10.4) fl Immature Gran % (Auto) Neut % (Auto) Lymph % (Auto) Glasscock % (Auto) Eos % (Auto) Baso % (Auto) Lymph # (Auto) Glasscock # (Auto) Eos # (Auto) Baso # (Auto) Abs Immat Gran (auto) Absolute Neuts (auto) Absolute Nucleated RBC Total Counted Neutrophils % (Manual) (46-73) % Band Neutrophils % (0-6) % Lymphocytes % (Manual) (18-44) % Monocytes % (Manual) (3-9) % Basophils % (Manual) (0-1) % Nucleated RBC % Abs Neuts (Manual) (1.7-7.2) K/mm3 Abs Lymphs (Manual) (1.1-4.5) K/mm3 Abs Monocytes (Manual) (0.1-0.90) K/mm3 Abs Basophils (Manual) (0.0-0.1) K/mm3 Platelet Estimate (Adequate) % Immature Plt Fraction (0.9-11.2) % Hypochromasia Schistocytes PT (11.1-14.7) Seconds INR APTT (22.3-36.8) Seconds D-Dimer (<0.48) ug/mL Sodium Potassium Chloride Carbon Dioxide Anion Gap BUN Creatinine Estim Creat Clear Calc Estimated GFR 6 L Glucose Cancelled 77 Calcium Cancelled 8.1 L Magnesium 2.5 H (1.6-2.3) mg/dL Total Bilirubin Cancelled AST ALT Alkaline Phosphatase Troponin I (0.000-0.034) ng/mL NT-Pro-B Natriuret Pep Total Protein Albumin Influenza A (RT-PCR) (Negative) Influenza B (RT-PCR) (Negative) RSV (RT-PCR) (Negative) SARS-CoV-2 RNA (RT-PCR) (Negative) 06/13/24 06/13/24 06/13/24 Range/Units 13:13 13:13 13:13 WBC (4.5-10.0) K/mm3 RBC (4.2-5.4) M/mm3 Hgb (12.0-15.0) g/dL Hct (37.0-47.0) % MCV (80-100) fl MCH (26-34) pg MCHC (32-36) g/dl RDW (11.5-14.5) % Plt Count (150-375) k/mm3 MPV (7.4-10.4) fl Immature Gran % (Auto) Neut % (Auto) Lymph % (Auto) Glasscock % (Auto) Eos % (Auto) Baso % (Auto) Lymph # (Auto) Glasscock # (Auto) Eos # (Auto) Baso # (Auto) Abs Immat Gran (auto) Absolute Neuts (auto) Absolute Nucleated RBC Total Counted Neutrophils % (Manual) (46-73) % Band Neutrophils % (0-6) % Lymphocytes % (Manual) (18-44) % Monocytes % (Manual) (3-9) % Basophils % (Manual) (0-1) % Nucleated RBC % Abs Neuts (Manual) (1.7-7.2) K/mm3 Abs Lymphs (Manual) (1.1-4.5) K/mm3 Abs Monocytes (Manual) (0.1-0.90) K/mm3 Abs Basophils (Manual) (0.0-0.1) K/mm3 Platelet Estimate (Adequate) % Immature Plt Fraction (0.9-11.2) % Hypochromasia Schistocytes PT (11.1-14.7) Seconds INR APTT (22.3-36.8) Seconds D-Dimer (<0.48) ug/mL Sodium Potassium Chloride Carbon Dioxide Anion Gap BUN Creatinine Estim Creat Clear Calc Estimated GFR Glucose Calcium Magnesium (1.6-2.3) mg/dL Total Bilirubin 0.6 AST Cancelled 48 H ALT Cancelled 21 Alkaline Phosphatase Cancelled Troponin I (0.000-0.034) ng/mL NT-Pro-B Natriuret Pep Total Protein Albumin Influenza A (RT-PCR) (Negative) Influenza B (RT-PCR) (Negative) RSV (RT-PCR) (Negative) SARS-CoV-2 RNA (RT-PCR) (Negative) 06/13/24 06/13/24 06/13/24 Range/Units 13:13 13:13 13:13 WBC (4.5-10.0) K/mm3 RBC (4.2-5.4) M/mm3 Hgb (12.0-15.0) g/dL Hct (37.0-47.0) % MCV (80-100) fl MCH (26-34) pg MCHC (32-36) g/dl RDW (11.5-14.5) % Plt Count (150-375) k/mm3 MPV (7.4-10.4) fl Immature Gran % (Auto) Neut % (Auto) Lymph % (Auto) Glasscock % (Auto) Eos % (Auto) Baso % (Auto) Lymph # (Auto) Glasscock # (Auto) Eos # (Auto) Baso # (Auto) Abs Immat Gran (auto) Absolute Neuts (auto) Absolute Nucleated RBC Total Counted Neutrophils % (Manual) (46-73) % Band Neutrophils % (0-6) % Lymphocytes % (Manual) (18-44) % Monocytes % (Manual) (3-9) % Basophils % (Manual) (0-1) % Nucleated RBC % Abs Neuts (Manual) (1.7-7.2) K/mm3 Abs Lymphs (Manual) (1.1-4.5) K/mm3 Abs Monocytes (Manual) (0.1-0.90) K/mm3 Abs Basophils (Manual) (0.0-0.1) K/mm3 Platelet Estimate (Adequate) % Immature Plt Fraction (0.9-11.2) % Hypochromasia Schistocytes PT (11.1-14.7) Seconds INR APTT (22.3-36.8) Seconds D-Dimer (<0.48) ug/mL Sodium Potassium Chloride Carbon Dioxide Anion Gap BUN Creatinine Estim Creat Clear Calc Estimated GFR Glucose Calcium Magnesium (1.6-2.3) mg/dL Total Bilirubin AST ALT Alkaline Phosphatase 144 H Troponin I 0.402 H* (0.000-0.034) ng/mL NT-Pro-B Natriuret Pep Cancelled > 12189 H Total Protein Cancelled 7.0 Albumin Cancelled Influenza A (RT-PCR) (Negative) Influenza B (RT-PCR) (Negative) RSV (RT-PCR) (Negative) SARS-CoV-2 RNA (RT-PCR) (Negative) 06/13/24 Range/Units 13:13 WBC (4.5-10.0) K/mm3 RBC (4.2-5.4) M/mm3 Hgb (12.0-15.0) g/dL Hct (37.0-47.0) % MCV (80-100) fl MCH (26-34) pg MCHC (32-36) g/dl RDW (11.5-14.5) % Plt Count (150-375) k/mm3 MPV (7.4-10.4) fl Immature Gran % (Auto) Neut % (Auto) Lymph % (Auto) Glasscock % (Auto) Eos % (Auto) Baso % (Auto) Lymph # (Auto) Glasscock # (Auto) Eos # (Auto) Baso # (Auto) Abs Immat Gran (auto) Absolute Neuts (auto) Absolute Nucleated RBC Total Counted Neutrophils % (Manual) (46-73) % Band Neutrophils % (0-6) % Lymphocytes % (Manual) (18-44) % Monocytes % (Manual) (3-9) % Basophils % (Manual) (0-1) % Nucleated RBC % Abs Neuts (Manual) (1.7-7.2) K/mm3 Abs Lymphs (Manual) (1.1-4.5) K/mm3 Abs Monocytes (Manual) (0.1-0.90) K/mm3 Abs Basophils (Manual) (0.0-0.1) K/mm3 Platelet Estimate (Adequate) % Immature Plt Fraction (0.9-11.2) % Hypochromasia Schistocytes PT (11.1-14.7) Seconds INR APTT (22.3-36.8) Seconds D-Dimer (<0.48) ug/mL Sodium Potassium Chloride Carbon Dioxide Anion Gap BUN Creatinine Estim Creat Clear Calc Estimated GFR Glucose Calcium Magnesium (1.6-2.3) mg/dL Total Bilirubin AST ALT Alkaline Phosphatase Troponin I (0.000-0.034) ng/mL NT-Pro-B Natriuret Pep Total Protein Albumin 3.9 Influenza A (RT-PCR) Positive A (Negative) Influenza B (RT-PCR) Negative (Negative) RSV (RT-PCR) Negative (Negative) SARS-CoV-2 RNA (RT-PCR) Positive A (Negative) <Jose Antonio Retana MD - Last Filed: 06/13/24 17:01> Discharge Plan Discharge Clinical Impression: COVID-19, ESRD (end stage renal disease), Influenza, Acute hypoxemic respiratory failure, Multifocal pneumonia <Jessenia Drew PA-C - Last Filed: 06/13/24 13:14> Patient Disposition: Still a Patient <Jessenia Drew PA-C - Last Filed: 06/13/24 13:14> Condition: Stable <Jessenia Drew PA-C - Last Filed: 06/13/24 13:14> Patient Language: Irish <Jessenia Drew PA-C - Last Filed: 06/13/24 13:14> Prescriptions: No Action albuterol sulfate 90 mcg/actuation HFA aerosol inhaler 2 inh inhalation QID PRN (Reason: shortness of breath or wheezing) Qty: 8.5 0RF (DME) Jono Aerosol Trigg Enhancer Spacer See Rx Instructions .Route Qty: 1 0RF Rx Instructions: four times daily tramadol 50 mg tablet 100 mg PO BID PRN (Reason: Pain (Scale Score 4-6)) Qty: 120 4RF mirtazapine 30 mg tablet 30 mg PO QHS Qty: 90 1RF cholecalciferol (vitamin D3) 50 mcg (2,000 unit) capsule 50 mcg PO DAILY melatonin 3 mg capsule 3 mg PO QHS vitamin E (dl, acetate) 180 mg (400 unit) capsule 180 mg PO DAILY atorvastatin 40 mg tablet 40 mg PO DAILY sertraline 50 mg tablet 50 mg PO HS ondansetron 4 mg tablet,disintegrating 4 mg PO QID PRN (Reason: Nausea) Tradjenta 5 mg tablet 5 mg PO DAILY Triphrocaps 1 mg capsule 1 cap PO DAILY docusate sodium [Colace] 100 mg Capsule 100 mg PO BID Rx Instructions: one in morning and one at night. benzonatate 200 mg capsule 200 mg PO TID PRN (Reason: cough) Qty: 30 0RF dicyclomine 10 mg capsule 10 mg PO BID Qty: 60 4RF levothyroxine 112 mcg tablet See Rx Instructions .ROUTE .COMPLEX Qty: 90 0RF Dose Instruction: Take 1 tablet by mouth once daily Rx Instructions: Take 1 tablet by mouth once daily calcium acetate(phosphat bind) 667 mg capsule 667 mg PO TIDWM Qty: 150 12RF oseltamivir [Tamiflu] 30 mg capsule 30 mg PO .COMPLEX 5 Days Qty: 4 0RF Rx Instructions: 30 mg orally now and after each dialysis session through 06/15/23 <Jessenia Drew PA-C - Last Filed: 06/13/24 13:14> Follow-up/Referrals: Shahid Powell MD [Primary Care Provider] - <Jessenia Drew PA-C - Last Filed: 06/13/24 13:14> Time of Disposition: 17:01 <Jessenia Drew PA-C - Last Filed: 06/13/24 13:14> 17:01 <Jose Antonio Retana MD - Last Filed: 06/13/24 17:01>
--- NOTE | 2024-06-13 13:07 | ECG_ITS ---
Test Date: 2024-06-13 13:20:38 Measurements Intervals [place] Rate: 77 P: 233 AL: 211 QRS: 22 QRSD: 169 T: -12 QT: 410 QTc: 466 Interpretive Statements ECTOPIC ATRIAL RHYTHM RIGHT BUNDLE BRANCH BLOCK ABNORMAL ECG Compared to ECG 01/26/2024 17:34:24 Ventricular premature complex(es) no longer present Electronically Signed On 06-13-2024 13:56:39 REGIONAL ACCOUNT EXECUTIVE by Jose Luis Sánchez D.O.
[2024-06-13 13:31] LABS: Hematocrit 36.9 % (37.0-47.0); Hemoglobin 10.9 g/dL (12.0-15.0); Immature Platelet Fraction Pct 5.6 % (0.9-11.2); Mean Corpuscular HGB Conc 29.5 g/dl (32-36); Mean Corpuscular Hemoglobin 30.8 pg (26-34); Mean Corpuscular Volume 104.2 fl (80-100); Platelet Count Result 57 k/mm3 (150-375); Red Blood Count 3.54 M/mm3 (4.2-5.4); Red Cell Distribution Width 15.7 % (11.5-14.5)
[2024-06-13 13:43] LABS: Prothrombin Time 13.6 Seconds (11.1-14.7)
[2024-06-13 13:44] LABS: Partial Thromboplastin Time 34.8 Seconds (22.3-36.8)
[2024-06-13 13:48] LABS: Alanine Aminotransferase 21 U/L (6-35); Albumin Level 3.9 g/dL (3.5-5.1); Alkaline Phosphatase 144 U/L (38-126); Anion Gap 11 mmol/L (4-12); Aspartate Amino Transferase 48 U/L (14-36); Bilirubin,Total 0.6 mg/dL (0.2-1.3); Blood Urea Nitrogen 57 mg/dL (7-17); Calcium 8.1 mg/dL (8.4-10.2); Carbon Dioxide 31 mmol/L (22-30); Chloride 94 mmol/L (98-107); Estimated Glomerular Filt Rate 6; Glucose 77 mg/dL (65-110); Magnesium 2.5 mg/dL (1.6-2.3); Potassium 4.4 mmol/L (3.4-5.0); Sodium 136 mmol/L (137-145)
[2024-06-13 13:52] LABS: D Dimer 1.48 ug/mL (<0.48)
--- OUTSIDE RECORDS SUMMARY | 2024-06-13 13:52 | XMS_ITS | Continuity of Care Document ---
Author Organization [facility] Address [address] [place] [address] [address] [place] [address] Phone Care Team Providers Care Glass Installer Name Role Phone Alexa Harley Unavailable Unavailable Procedures Procedure Date Office/outpatient Visit, Est Eye Exam Established Pt Advance Directives Directive Yes / No Effective Date File Name No Information Encounters Encounter Description Practice Location Reason(s) For Visit Diagnoses Date Provider Providers Copied on Encounter Office/outpat ient Visit, Est [facility], [address] [place] [address] [address], [place], [place], [id number], tel:[phone] [facility] No Information [address] , [address], [place], [place], [facility], [place]. tel:[phone] [facility], [address] [place] [address] [address], [place], [place], [id number], tel:[phone] [facility] No Information Apr-[address] , [address], [place], [place], [facility], [place]. tel:[phone] Family History Family Member Type Diagnosis Age At Onset No Information Payers Payer name Insurance type Covered constitution party ID Authoriza tion(s) No Information Social History [...]
--- OUTSIDE RECORDS SUMMARY | 2024-06-13 13:52 | XMS_ITS | Referral Summary ---
Author Organization [facility] Address [address] [facility] [place] [address] Care Team Providers Care Oiling Machine Operator Name Role Phone Shahid Powell MD Primary Care Provider + Source Comments [facility],non-[facility] Affiliates and Associated Physician Practices is amultiple site organization consisting of ambulatory clinics and hospital sitesin [place], [place], [place] and [place]. This disclosure is being madepursuant to the Care Everywhere program and may not contain all information available regarding this patient. Last updated 18.[facility] Encounters Date Type Department Care Team Description 03/20/2024 Travel 03/20/2024 1:32 PM TELETYPEWRITER INSTALLER - 03/20/2024 11:59 PM TELETYPEWRITER INSTALLER Hospital Encounter [facility] Vascular Services [id number] [place] [address], [place] [id number] Lucio Singh MD Javed, DO Richard Fung [...] Also one each snack 09/21/2020 Active B Sbcqhfb-B-Vfdsc Acid (TRIPHROCAPS) 1 MG CAPS 10/19/2020 Active [...] bedtime Active Probiotic Product (TRUBIOTICS DIGEST + [employer] HEALTH PO) Take 1 tablet by mouth [...] Comments Blood Pressure 141/80 03/20/2024 2:25 PM TELETYPEWRITER INSTALLER Pulse 93 03/20/2024 2:25 PM TELETYPEWRITER INSTALLER Temperature 36.6 C (97.8 F) 03/20/2024 1:47 PM TELETYPEWRITER INSTALLER Respiratory Rate 10 03/20/2024 2:25 PM TELETYPEWRITER INSTALLER Oxygen Saturation 100% 03/20/2024 2:25 PM TELETYPEWRITER INSTALLER Inhaled Oxygen Concentration - - Weight 61.2 kg (135 lb) 03/20/2024 1:47 PM TELETYPEWRITER INSTALLER Height 139.7 cm (4' 7 ) 03/20/2024 1:47 PM TELETYPEWRITER INSTALLER Body Mass Index 31.38 03/20/2024 1:47 PM TELETYPEWRITER INSTALLER Functional Status Functional Status Response Date of [...] Info) Description 07/17/2024 2:45 PM CDT Appointment [facility] [address] [facility], [address] [place] [address] [place] [address] [facility] [address] [place] [address] [place] [address] [facility] [address] [place] [address] [place] [address] [facility] [address] [place] [address] Calvin Lynne MD [address] [place] [address] Ronald Rosas MD [address] [place] [address] [place] [id number] [address] Medical Devices Implanted Type Area Wrapping Clerk Device Identifier Shelf Expiration Date Model / Serial / Lot Graft Vasc 4-7mm 40cm Grtx Std Wl Tpr Ln - [id number] Implanted:Qty: 1 on 10/02/2019 by Lucio Singh MD at [facility] Left: Arm [employer] 12/03/2023 [id number] / [id number] / Procedures Procedure Name Priority Date/Time Associated Diagnosis Comments CARDIAC RHYTHM STRIP ORDER 03/21/2024 6:24 PM TELETYPEWRITER INSTALLER IR ANGIO AV SHUNT IMAGING Routine 03/20/2024 2:18 PM TELETYPEWRITER INSTALLER Encounter regarding vascular access for dialysis for end-stage renal disease (HCC) from Last 3 Months Results * CARDIAC RHYTHM STRIP ORDER (03/21/2024 6:24 PM TELETYPEWRITER INSTALLER) Narrative 03/21/2024 6:24 PM TELETYPEWRITER INSTALLER Ordered by an unspecified provider. Scanned Document CARDIAC SERVICES ORD ERABLES * IR ANGIO AV SHUNT IMAGING (03/20/2024 2:18 PM TELETYPEWRITER INSTALLER) Anatomical Region Laterality Modality Lower Extremity, Upper Extremity, Chest X-Ray Angiography Narrative 03/20/2024 2:23 PM TELETYPEWRITER INSTALLER Calvin Lynne MD 03/20/2024 2:25 PM Surgeon: [...] central venous structures are unremarkable. A 6 [place] Islander sheath was introduced and angioplasty of the venous anastomosis was performed using an 8 mm x 4 cm Conquest balloon. Reflux injection during balloon inflation demonstrated unremarkable arterial anastomosis. Contrast injection after angioplasty demonstrated no significant improvement at the stenosis. Subsequently the sheath was exchanged for an 8 [place]er sheath. A 8 mm x 5 cm [...] Documents on File Type Date Recorded Patient Gun Repair Clerk Expl anation Adv Directive/Living Will/POA 10/05/2018 9:04 PM * Full Code (Latest Code Status on File) Date Activated Date Inactivated Comments 10/02/2019 6:22 PM 10/07/2019 8:17 PM Care Teams Oiling Machine Operator Relationship Specialty Start Date End Date Shahid Powell MD [address] [place] [id number] PCP - General 10/05/10
--- OUTSIDE RECORDS SUMMARY | 2024-06-13 13:52 | XMS_ITS | Clinical Summary ---
Author Organization [facility] Address [address] [place] [address] Phone Care Team Providers Care Applications Architect Name Role Phone Unavailable Primary Care Provider [...]
--- OUTSIDE RECORDS SUMMARY | 2024-06-13 13:52 | XMS_ITS | Clinical Summary ---
Author Organization [facility] Address [address] [place] [address] Care Team Providers Care Monument Installer Name Role Phone Shahid Powell MD Primary Care Provider + Source Comments [facility]non-owned Affiliates and Associated Physician Practices is amultiple site organization consisting of ambulatory clinics and hospital sitesin [place], [place], [place] and [place]. This disclosure is being madepursuant to the Care Everywhere program and may not contain all information available regarding this patient. Last updated 18.[facility] Allergies Active Allergy Reactions Criticality Noted Date [...] Also one each snack 09/21/2020 Active B Cctzunp-V-Ydccb Acid (TRIPHROCAPS) 1 MG CAPS 10/19/2020 Active [...] Department Care Team Description 03/20/2024 1:32 PM AIR DRILL OPERATOR - 03/20/2024 11:59 PM AIR DRILL OPERATOR Hospital Encounter [facility] V[facility] Services [id number] [place] [address], [address] [place] [address] Lucio Singh MD Javed, Marnie Espinal, Marco [...] Comments Blood Pressure 141/80 03/20/2024 2:25 PM AIR DRILL OPERATOR Pulse 93 03/20/2024 2:25 PM AIR DRILL OPERATOR Temperature 36.6 C (97.8 F) 03/20/2024 1:47 PM AIR DRILL OPERATOR Respiratory Rate 10 03/20/2024 2:25 PM AIR DRILL OPERATOR Oxygen Saturation 100% 03/20/2024 2:25 PM AIR DRILL OPERATOR Inhaled Oxygen Concentration - - Weight 61.2 kg (135 lb) 03/20/2024 1:47 PM AIR DRILL OPERATOR Height 139.7 cm (4' 7 ) 03/20/2024 1:47 PM AIR DRILL OPERATOR Body Mass Index 31.38 03/20/2024 1:47 PM AIR DRILL OPERATOR Plan of Treatment Upcoming Encounters Date Type Department Care Team (Late st Contact Info) Description 07/17/2024 2:45 PM CDT Appointment [facility] [address] [facility], [address] [place] [address] [place] [address] [facility] [address] [place] [address] [place] [address] [place] [address] [place] [address] [facility] [address] [place] [address] Calvin Lynne MD [address] [place] [address] Ronald Rosas MD [address] [place] [address] [place] [id number] [facility] [address] [place] [address] Health Maintenance Due Date Last [...] this topic Medical Devices Implanted Type Area Molding Engineer Device Identifier Shelf Expiration Date Model / Serial / Lot Graft Vasc 4-7mm 40cm Grtx Std Wl Tpr Ln - [id number] Implanted:Qty: 1 on 10/02/2019 by Lucio Singh MD at [facility] Left: Arm [employer] 12/03/2023 [id number] / [id number] / Procedures Procedure Name Priority Date/Time Associated Diagnosis Comments CARDIAC RHYTHM STRIP ORDER 03/21/2024 6:24 PM AIR DRILL OPERATOR IR ANGIO AV SHUNT IMAGING Routine 03/20/2024 2:18 PM AIR DRILL OPERATOR Encounter regarding vascular access for dialysis for end-stage renal disease (HCC) from Last 3 Months Results * CARDIAC RHYTHM STRIP ORDER (03/21/2024 6:24 PM AIR DRILL OPERATOR) Narrative 03/21/2024 6:24 PM AIR DRILL OPERATOR Ordered by an unspecified provider. Scanned Document CARDIAC SERVICES ORD ERABLES * IR ANGIO AV SHUNT IMAGING (03/20/2024 2:18 PM AIR DRILL OPERATOR) Anatomical Region Laterality Modality Lower Extremity, Upper Extremity, Chest X-Ray Angiography Narrative 03/20/2024 2:23 PM AIR DRILL OPERATOR Calvin Lynne MD 03/20/2024 2:25 PM [...] central venous structures are unremarkable. A 6 Samoan sheath was introduced and angioplasty of the venous anastomosis was performed using an 8 mm x 4 cm Conquest balloon. Reflux injection during balloon inflation demonstrated unremarkable arterial anastomosis. Contrast injection after angioplasty demonstrated no significant improvement at the stenosis. Subsequently the sheath was exchanged for an 8 Samoan sheath. A 8 mm x 5 cm [...] Documents on File Type Date Recorded Patient Cutting And Printing Machine Operator Expl anation Adv Directive/Living Will/POA 10/05/2018 9:04 PM * Full Code (Latest Code Status on File) Date Activated Date Inactivated Comments 10/02/2019 6:22 PM 10/07/2019 8:17 PM Care Teams Monument Installer Relationship Specialty Start Date End Date Shahid Powell MD [address] [address] PCP - General 10/05/10
--- OUTSIDE RECORDS SUMMARY | 2024-06-13 13:53 | XMS_ITS | Patient Health Summary ---
Author Organization [facility] Address [address] [place] [address] Care Team Providers Care Case Supervisor Name Role Phone Shahid Powell MD Primary Care Provider + Note from [facility],non-owned Affiliates and Associated Physician Practices is amultiple site organization consisting of ambulatory clinics and hospital sitesin [place], [place], [place] and [place]. This disclosure is being madepursuant to the Care Everywhere program and may not contain all information available regarding this patient. Last updated 18.[facility] Allergies * Ibuprofen(GI Discomfort) -Low Criticality [...] daily Also one each snack * B Erptmqa-Z-Lpsqr Acid (TRIPHROCAPS) 1 MG CAPS(Started 10/19/2020) * [...] bedtime * Probiotic Product (TRUBIOTICS DIGEST + [employer] HEALTH PO) Take 1 tablet by mouth [...] Comments Blood Pressure 141/80 03/20/2024 2:25 PM OTOLARYNGOLOGY TEACHER Pulse 93 03/20/2024 2:25 PM OTOLARYNGOLOGY TEACHER Temperature 36.6 C (97.8 F) 03/20/2024 1:47 PM OTOLARYNGOLOGY TEACHER Respiratory Rate 10 03/20/2024 2:25 PM OTOLARYNGOLOGY TEACHER Oxygen Saturation 100% 03/20/2024 2:25 PM OTOLARYNGOLOGY TEACHER Inhaled Oxygen Concentration - - Weight 61.2 kg (135 lb) 03/20/2024 1:47 PM OTOLARYNGOLOGY TEACHER Height 139.7 cm (4' 7 ) 03/20/2024 1:47 PM OTOLARYNGOLOGY TEACHER Body Mass Index 31.38 03/20/2024 1:47 PM OTOLARYNGOLOGY TEACHER Medical Devices Implanted Type Area Communications Tech Device Identifier Shelf Expiration Date Model / Serial / Lot Graft Vasc 4-7mm 40cm Grtx Std Wl Tpr Ln - [id number] Implanted:Qty: 1 on 10/02/2019 by Lucio Singh MD at [facility] Left: [employer] 12/03/2023 [id number] / [id number] / Procedures * CARDIAC RHYTHM STRIP ORDER(Performed 03/21/2024) * IR ANGIO AV SHUNT IMAGING(Performed 03/20/2024) Performed for Encounter regarding vascular access for dialysis for end-stage renal disease ([facility]) * IMAGING/RADIOLOGY/XRAY RESULTS ORDER(Performed 11/13/2023) * CARDIAC RHYTHM STRIP ORDER(Performed 10/20/2023) * IR ANGIO AV SHUNT IMAGING(Performed 10/18/2023) Performed for ESRD (end stage renal disease) ([facility]) * CARDIAC RHYTHM STRIP ORDER(Performed 06/16/2023) * IR ANGIO AV SHUNT IMAGING(Performed 06/14/2023) Performed for ESRD (end stage renal disease) ([facility]) * CARDIAC RHYTHM STRIP ORDER(Performed 02/10/2023) * IR ANGIO AV SHUNT IMAGING(Performed 02/08/2023) Performed for ESRD (end stage renal disease) ([facility]) * IMAGING/RADIOLOGY/XRAY RESULTS ORDER(Performed 11/04/2022) * IR ANGIO AV SHUNT IMAGING(Performed 11/02/2022) Performed for ESRD (end stage renal disease) ([facility]) * CARDIAC RHYTHM STRIP ORDER(Performed 06/23/2022) * CARDIAC RHYTHM STRIP ORDER(Performed 02/10/2022) * CARDIAC RHYTHM STRIP ORDER(Performed 10/20/2021) * IR ANGIO AV SHUNT IMAGING(Performed 10/12/2021) Performed for Encounter regarding vascular access for dialysis for end-stage renal disease ([facility]) * CARDIAC RHYTHM STRIP ORDER(Performed 07/20/2021) * CARDIAC RHYTHM STRIP ORDER(Performed 02/27/2021) * CARDIAC RHYTHM STRIP ORDER(Performed 10/23/2020) * CARDIAC RHYTHM STRIP ORDER(Performed 06/16/2020) * IR ANGIO AV SHUNT IMAGING(Performed 06/09/2020) Performed for Encounter regarding vascular access for dialysis for end-stage renal disease ([facility]) * CARDIAC RHYTHM STRIP ORDER(Performed 02/20/2020) * IR ANGIO AV SHUNT IMAGING(Performed 02/18/2020) Performed for ESRD (end stage renal disease) ([facility]) * CARDIAC RHYTHM STRIP ORDER(Performed [...] ESRD (end stage renal disease) ([facility]) * GLUCOSE - POINT OF CARE(Performed 10/05/2019) * GLUCOSE - POINT OF CARE(Performed 10/05/2019) * GLUCOSE - POINT OF CARE(Performed 10/05/2019) * GLUCOSE - POINT OF CARE(Performed 10/04/2019) * GLUCOSE - POINT OF CARE(Performed 10/04/2019) * CT ED EGD FLEX TRANSORAL DX(Performed 10/04/2019) * PATHOLOGY TISSUE EXAM (STL)(Performed 10/04/2019) Performed for Diagnosis unknown * GLUCOSE - POINT OF CARE(Performed 10/04/2019) * HEMODIALYSIS INPATIENT(Performed 10/04/2019) * EGD(Performed 10/04/2019) * HEMOGLOBIN A1C(Performed 10/04/2019) Performed for Type 2 diabetes mellitus without complication, unspecified whether manager terminal insulin use (HCC) * RENAL FUNCTION PANEL(Performed [...] ESRD (end stage renal disease) ([facility]) * CARDIAC RHYTHM STRIP ORDER(Performed 07/02/2019) * IR ANGIO AV SHUNT IMAGING(Performed 06/20/2019) Performed for Complication of arteriovenous dialysis fistula, initial encounter * CARDIAC RHYTHM STRIP ORDER(Performed 04/30/2019) * IMAGING/RADIOLOGY/XRAY RESULTS ORDER(Performed 04/30/2019) * IR ANGIO AV SHUNT IMAGING(Performed 04/25/2019) Performed for ESRD (end stage renal disease) ([facility]), Inadequate flow of dialysis arteriovenous fistula, subsequent encounter * REVISION ARTERIOVENOUS (AV) FISTULA/GRAFT(Performed 03/14/2019) * BASIC METABOLIC PANEL (CALCIUM TOTAL)(Performed 03/14/2019) Performed for Preoperative examination * VAS DIALYSIS EXIST ACCESS SCAN(Performed 01/31/2019) Performed for ESRD (end stage renal disease) ([facility]) * CARDIAC RHYTHM STRIP ORDER(Performed 12/19/2018) * IR ANGIO AV SHUNT IMAGING(Performed 12/11/2018) Performed for Complication of arteriovenous dialysis fistula, initial encounter * VAS DIALYSIS EXIST ACCESS SCAN(Performed 11/15/2018) Performed for ESRD (end stage renal disease) ([facility]) * CREATE FISTULA A-V(Performed 10/04/2018) * GLUCOSE - POINT OF CARE(Performed 10/04/2018) * BASIC METABOLIC PANEL (CALCIUM TOTAL)(Performed 10/04/2018) Performed for Preop examination * VAS BILAT MAPPING FOR HEMODIALYSIS(Performed 09/27/2018) Performed for ESRD (end stage renal disease) ([facility]) * CULTURE URINE(Performed 09/16/2013) Results * CARDIAC RHYTHM STRIP ORDER (03/21/2024 6:24 PM OTOLARYNGOLOGY TEACHER) Only the most recent of18 resultswithin the time period is included. Narrative 03/21/2024 6:24 PM OTOLARYNGOLOGY TEACHER Ordered by an unspecified provider. Scanned Document CARDIAC SERVICES ORD ERABLES * IR ANGIO AV SHUNT IMAGING (03/20/2024 2:18 PM OTOLARYNGOLOGY TEACHER) Only the most recent of12 resultswithin the time period is included. Anatomical Region Laterality Modality Lower Extremity, Upper Extremity, Chest X-Ray Angiography Narrative 03/20/2024 2:23 PM OTOLARYNGOLOGY TEACHER Calvin Lynne MD 03/20/2024 2:25 PM [...] central venous structures are unremarkable. A 6 Romanian sheath was introduced and angioplasty of the venous anastomosis was performed using an 8 mm x 4 cm Conquest balloon. Reflux injection during balloon inflation demonstrated unremarkable arterial anastomosis. Contrast injection after angioplasty demonstrated no significant improvement at the stenosis. Subsequently the sheath was exchanged for an 8 Romanian sheath. A 8 mm x 5 cm [...] - 15.6 gm/dL 10/07/2019 10:25 AM CDT [facility] Hematocrit 24.2(L) 35.9 - 45.5 % 10/07/2019 10:25 AM CDT [facility] Blood BLOOD SPECIMEN / Unknown Venipuncture / Unknown 10/07/2019 10:15 AM CDT 10/07/2019 10:22 AM CDT Lyndon Cárdenas MD LAB - HEMATOLOGY ORD ERABLES [facility] [address] [place] [address] * TRANSFUSE RED BLOOD CELL LEUKOREDUCED UNIT(S) (10/06/2019 4:08 PM CDT) Nuris Parks MD NURSING - BLOOD PROD TRANSFUSION * (ABNORMAL) GLUCOSE - POINT OF CARE (10/06/2019 11:29 AM CDT) Only the most recent of14 resultswithin the time period is included. Pathologist [facility] Glucose WB/POC 148(H) 70 - 106 mg/dL 10/06/2019 5:50 PM CDT [facility] Specimen Type Arterial/C apillary 10/06/2019 5:50 PM CDT [facility] Blood BLOOD SPECIMEN / Unknown 10/06/2019 11:29 AM CDT 10/06/2019 5:50 PM CDT Nuris Parks MD LAB - POINT OF CARE ORDERABLES Performing Organization Address [facility] Co de Phone Number [facility] [id number] [place] [address] * TYPE + SCREEN PANEL (10/06/2019 10:53 AM CDT) ABO O 10/06/2019 11:40 AM CDT [facility] Rh Type Negative 10/06/2019 11:40 AM CDT [facility] Comment:History checked. Col lect retype. Antibody Screen Negative 10/06/2019 11:40 AM CDT [facility] Blood Bank BLOOD SPECIMEN / Unknown Venipuncture / Unknown 10/06/2019 10:53 AM CDT 10/06/2019 11:03 AM CDT Nuris Parks MD LAB - BLOOD BANK ORD ERABLES Performing Organization Address [facility] de Phone Number [facility] [address] [place] [address] * PREPARE (CROSSMATCH) RBC UNIT(S), 1 Units (10/06/2019 10:45 AM CDT) Product Code [id number] [facility] Unit Donor # [id number] D [facility] ABO Donor Type O [facility] Rh Type Unit NEG [facility] Unit Status Transfd [facility] ABO Rh Type Unit ONEG [facility] Donor Unit Expiration Date [id number] [facility] Blood Type Barcode 9500 [facility] Blood Bank BLOOD SPECIMEN / Unknown 10/06/2019 10:45 AM CDT Nuris Parks MD LAB - BLOOD BANK ORD ERABLES Performing Organization Address [facility] de Phone Number [facility] [address] [place] [address] * BLOOD TYPE VERIFICATION (10/06/2019 9:53 AM CDT) ABO O 10/06/2019 11:30 AM CDT [facility] Rh Type Negative 10/06/2019 11:30 AM CDT [facility] Blood Bank BLOOD SPECIMEN / Unknown Venipuncture / Unknown 10/06/2019 9:53 AM CDT 10/06/2019 11:05 AM CDT Nuris Parks MD LAB - BLOOD BANK ORD ERABLES [facility] [address] * (ABNORMAL) CBC W AUTO DIFFERENTIAL (10/06/2019 5:37 AM CDT) Only the most recent of2 resultswithin the time period is included. [facility] WBC 8.1 4.4 - 10.7 x10E9/L 10/06/2019 5:57 AM CDT [facility] WBC Corrected 10/06/2019 5:57 AM CDT [facility] RBC 2.02(L) 3.80 - 5.20 x10E12/L 10/06/2019 5:57 AM CDT [facility] Hemoglobin 6.4(L) 12.0 - 15.6 gm/dL 10/06/2019 5:57 AM CDT [facility] Hematocrit 20.6(L) 35.9 - 45.5 % 10/06/2019 5:57 AM CDT [facility] MCV 102.0(H) 80.7 - 98.3 fl 10/06/2019 5:57 AM CDT [facility] MCH 31.7 26.7 - 34.0 pg 10/06/2019 5:57 AM CDT [facility] MCHC 31.1 30.8 - 35.9 gm/dL 10/06/2019 5:57 AM CDT [facility] Platelet Count 117(L) 153 - 416 x10E9/L 10/06/2019 5:57 AM CDT [facility] RDW-CV 15.1(H) 12.1 - 14.9 % 10/06/2019 5:57 AM CDT [facility] MPV 10.0 9.4 - 12.9 fl 10/06/2019 5:57 AM CDT [facility] Neutrophils % 59.3 44.0 - 73.0 % 10/06/2019 5:57 AM CDT [facility] Lymphocytes % 29.3 20.0 - 43.0 % 10/06/2019 5:57 AM CDT [facility] Monocytes % 8.5 5.0 - 13.0 % 10/06/2019 5:57 AM CDT [facility] Eosinophils % 1.9 0.0 - 6.0 % 10/06/2019 5:57 AM CDT [facility] Basophils % 0.4 0.0 - 2.0 % 10/06/2019 5:57 AM CDT [facility] Immature Granulocytes 0.6 0 - 1 % 10/06/2019 5:57 AM CDT [facility] Neutrophil Absolute 4.81 2.01 - 7.14 x10E9/L 10/06/2019 5:57 AM CDT [facility] Lymphocytes Absolute 2.37 1.07 - 3.94 x10E9/L 10/06/2019 5:57 AM CDT [facility] Monocytes Absolute 0.69 0.26 - 1.07 x10E9/L 10/06/2019 5:57 AM CDT [facility] Eosinophils Absolute 0.15 0 - 0.47 x10E9/L 10/06/2019 5:57 AM CDT [facility] Basophils Absolute 0.03 0 - 0.08 x10E9/L 10/06/2019 5:57 AM CDT [facility] Immature Granulocytes Absolute 0.05 0.00 - 0.06 x10E9/L 10/06/2019 5:57 AM CDT [facility] nRBC Auto 0 /100 WBC 10/06/2019 5:57 AM CDT [facility] Blood BLOOD SPECIMEN / Unknown Venipuncture / Unknown 10/06/2019 5:37 AM CDT 10/06/2019 5:46 AM CDT Narrative [facility] - 10/06/2019 5:57 AM CDT PLATELETS = SLIGHTLY DECREASED Lyndon Cárdenas MD LAB - HEMATOLOGY ORD ERABLES [facility] [address] [place] [address] * GROSS + MICRO EXAM (STL) (10/04/2019 1:11 PM CDT) Case Report Surgical Pathology Report Case: [id number] Authorizing Provider: Ada Hayes DO Collected: 10/04/2019 01:11 PM Ordering Location: [facility] Received: 10/04/2019 03:11 PM Pathologist: Vaishnavi Mckinnon MD Specimens: A) - Duodenal Biopsy B) - Gastric Biopsy 10/09/2019 9:30 AM CDT [facility] Addendum 1 A Helicobacter pylor i immunostain performed on block B1 is negative. 10/09/2019 9:30 AM CDT [facility] Addendum electronically signed by Vaishnavi Mckinnon MD on 10/09/2019 at 9:29 AM Final Diagnosis A. Duodenum, biopsy: -- Small intestinal mucosa with no histopathologic abnormality B. Stomach, biopsy: -- Antral and oxyntic type gastric mucosa with mild chronic inflammation -- Oxyntic type gastric mucosa with changes consistent with proton pump inhibitor effect -- No dysplasia or malignancy 10/09/2019 9:30 AM CDT [facility] Gross Description Received in container A [...] cassette B1. CH/ns 10/09/2019 9:30 AM CDT [facility] Microscopic Description A Helicobacter pylori immunostain will be performed on block B1 and the result will be reported in an addendum. 10/09/2019 9:30 AM CDT [facility] Disclaimer All histochemical and/or immunohistochemical results are interpreted with controls that demonstrate appropriate staining reactions before reporting results. Note on use of immunocytochemistry reagents: This test was developed and its performance characteristic determined by [facility], Department of Laboratory Medicine. It has [...] interpreted with caution. 10/09/2019 9:30 AM CDT [facility] Embedded Images 10/09/2019 9:30 AM CDT [facility] Pathology/Cytology GASTRIC BIOPSY SPECIMEN / Unknown 10/04/2019 1:11 PM CDT 10/04/2019 3:11 PM CDT Miscellaneous samples (specimen) GASTRIC BIOPSY SPECIMEN / Unknown 10/04/2019 1:11 PM CDT 10/04/2019 3:11 PM CDT Ada Hayes DO LAB - PATHOLOGY/CYTO LOGY ORDERABLES Performing Organization Address City/State/[facility] Co de Phone Number [facility] [address] [place] [phone] * EGD (10/04/2019 7:12 AM CDT) Report [...] 1 week. Procedure Code(s): --- Professional --- 25625, Esophagogastroduo denoscopy, flexible, transoral; with biopsy, single or multiple --- Technical --- 21105, Esophagogastroduo denoscopy, flexible, transoral; with biopsy, single or multiple Diagnosis Code(s): --- Professional --- K29.00, Acute gastritis without bleeding R10.13, Epigastric pain R11.2, Nausea with vomiting, unspecified --- Technical --- K29.00, Acute gastritis without bleeding R10.13, Epigastric pain R11.2, Nausea with vomiting, unspecified CPT copyright 2017 [employer]. All rights reserved. The codes documented in this report are preliminary and upon extrusion supervisor review may be revised to meet current compliance requirements. ____ Ada Hayes DO 10/04/2019 1:15:25 PM This report has been signed electronically. Number of Addenda: 0 Note Initiated On: 10/04/2019 7:12 AM [facility] 10/04/2019 7:12 AM CDT sIaias Leon DO GI PROCEDURE ORDER LISE [facility] [place] [address] * HEMOGLOBIN A1C (10/04/2019 4:13 AM CDT) Hemoglobin A1c 4.8 4.2 - 5.6 % 10/04/2019 5:06 AM CDT [facility] Estimated Average Glucose 91 mg/dL 10/04/2019 5:06 AM CDT [facility] Blood BLOOD SPECIMEN / Unknown Venipuncture / Unknown 10/04/2019 4:13 AM CDT 10/04/2019 4:52 AM CDT Narrative [facility] - 10/04/2019 5:06 AM CDT The following cutoff levels are recommended by [employer]. A1c > 6.5% : considered [...] Wheeler MD LAB - CHEMISTRY JEANETTE WINSTON [facility] Organization Address City/State/ZIP Co de Phone Number [facility] [address] [place] [address] * (ABNORMAL) RENAL FUNCTION PANEL (10/04/2019 4:13 AM CDT) Glucose 108(H) 70 - 105 mg/dL 10/04/2019 5:45 AM CDT [facility] Sodium 131(L) 136 - 145 mmol/L 10/04/2019 5:45 AM CDT [facility] Potassium 4.4 3.5 - 5.1 mmol/L 10/04/2019 5:45 AM CDT [facility] Chloride 95(L) 98 - 107 mmol/L 10/04/2019 5:45 AM CDT [facility] CO2 20(L) 23 - 31 mmol/L 10/04/2019 5:45 AM CDT [facility] Calcium 8.5 8.4 - 10.4 mg/dL 10/04/2019 5:45 AM CDT [facility] Anion Gap 16 8 - 16 mmol/L 10/04/2019 5:45 AM CDT [facility] BUN 32(H) 9.8 - 20.1 mg/dL 10/04/2019 5:45 AM CDT [facility] Creatinine 4.03(H) 0.57 - 1.11 mg/dL 10/04/2019 5:45 AM CDT [facility] Albumin 3.6 3.2 - 4.6 gm/dL 10/04/2019 5:45 AM CDT [facility] Phosphorus 5.3(H) 2.3 - 4.7 mg/dL 10/04/2019 5:45 AM CDT [facility] eGFR by MDRD 11 mL/min/1.7 3m2 10/04/2019 5:45 AM CDT [facility] eGFR by MDRD 13 mL/min/1.7 3m2 10/04/2019 5:45 AM CDT [facility] Blood BLOOD SPECIMEN / Unknown Venipuncture / Unknown 10/04/2019 4:13 AM CDT 10/04/2019 4:53 AM CDT Lyndon Cárdenas MD LAB - CHEMISTRY JEANETTE WINSTON [facility] Organization Address City/State/ZIP Co de Phone Number [facility] [address] [place] [address] * BLOOD GAS ART+LYTES+H&H POCT NOTIFICATION (10/04/2019 1:33 AM CDT) Comment Notification Label Only - See Separate Report 10/04/2019 3:00 AM CDT [facility] Blood BLOOD SPECIMEN / Unknown 10/04/2019 1:33 AM CDT 10/04/2019 1:33 AM CDT Salvador Wheeler MD LAB - BLOOD GASES OR DERABLES [facility] [address] [phone] * XR ABD OBSTRUCTION SERIES 2VW (10/03/2019 [...] resultswithin the time period is included. Pathologist [facility] Culture No growth day 5 GASPER 10/09/2019 1:41 AM CDT [facility] MICROBIOLOGY Blood PERIPHERAL BLOOD / Unknown Venipuncture / Unknown 10/03/2019 9:37 PM CDT 10/03/2019 9:45 PM CDT Salvador Wheeler MD LAB - MICROBIOLOGY O RDERABLES [facility] MICROBIOLOGY [address] [place] [phone] * TSH REFLEX FREE T4 (10/03/2019 9:19 PM CDT) Pathologist [facility] TSH 2.847 0.350 - 4.940 uIU/mL 10/03/2019 11:05 PM CDT [facility] Blood BLOOD SPECIMEN / Unknown Venipuncture / Unknown 10/03/2019 9:19 PM CDT 10/03/2019 10:32 PM CDT Salvador Wheeler MD LAB - CHEMISTRY ORDYessenia WINSTON [facility] [address] [place] [address] * (ABNORMAL) HYDROXYBUTYRATE BETA (10/03/2019 9:19 PM CDT) Beta-Hydroxybu tyrate 5.1(H) <0.6 mmol/L 10/03/2019 9:39 PM CDT [facility] Blood BLOOD SPECIMEN / Unknown Venipuncture / Unknown 10/03/2019 9:19 PM CDT 10/03/2019 9:26 PM CDT Narrative [facility] - 10/03/2019 9:39 PM CDT Betahydroxybutyrate comment: This test replaces Serum Acetone testing.Results 0.6-1.5 mmol/L could require medical intervention. Results >1.5 mmol/L may be indicative of diabetic ketoacidosis. Use in conjunction with Serum Glucose levels. Salvador Wheeler MD LAB - CHEMISTRY ORDE CATRACHITO Performing Organization Address [facility]/ZIP Co de Phone Number [facility] [address] [place] [address] * PT-INR (10/03/2019 9:19 PM CDT) PT 13.7 12.1 - 14.8 sec 10/03/2019 9:40 PM CDT [facility] INR 1.1 0.9 - 1.1 10/03/2019 9:40 PM CDT [facility] Blood BLOOD SPECIMEN / Unknown Venipuncture / Unknown 10/03/2019 9:19 PM CDT 10/03/2019 9:26 PM CDT Narrative [facility] - 10/03/2019 9:40 PM CDT Conventional Warfarin Anticoagulant Therapy: INR Reference Range: 2.0-3.0 Intensive Warfarin Anticoagulant Therapy: INR Reference Range: 2.5-3.5 Salvador Wheeler MD LAB - COAGULATION OR DERABLES Performing Organization Address [facility] Co de Phone Number [facility] [address] [place] [address] * (ABNORMAL) COMPREHENSIVE METABOLIC PANEL (10/03/2019 9:19 PM CDT) Glucose 102 70 - 105 mg/dL 10/03/2019 9:50 PM CDT [facility] Sodium 132(L) 136 - 145 mmol/L 10/03/2019 9:50 PM CDT [facility] Potassium 3.3(L) 3.5 - 5.1 mmol/L 10/03/2019 9:50 PM CDT [facility] Chloride 94(L) 98 - 107 mmol/L 10/03/2019 9:50 PM CDT [facility] CO2 21(L) 23 - 31 mmol/L 10/03/2019 9:50 PM CDT [facility] Calcium 8.5 8.4 - 10.4 mg/dL 10/03/2019 9:50 PM CDT [facility] Anion Gap 17(H) 8 - 16 mmol/L 10/03/2019 9:50 PM CDT [facility] BUN 24(H) 9.8 - 20.1 mg/dL 10/03/2019 9:50 PM CDT [facility] Creatinine 3.31(H) 0.57 - 1.11 mg/dL 10/03/2019 9:50 PM CDT [facility] Alkaline Phosphatase 113 40 - 150 U/L 10/03/2019 9:50 PM CDT [facility] ALT <6 0 - 61 U/L 10/03/2019 9:50 PM CDT [facility] AST 19 5 - 34 U/L 10/03/2019 9:50 PM CDT [facility] Protein Total 6.9 6.4 - 8.3 gm/dL 10/03/2019 9:50 PM CDT [facility] Albumin 3.6 3.2 - 4.6 gm/dL 10/03/2019 9:50 PM CDT [facility] Bilirubin Total 0.6 0.2 - 1.0 mg/dL 10/03/2019 9:50 PM CDT [facility] eGFR by MDRD 14 mL/min/1.7 3m2 10/03/2019 9:50 PM CDT [facility] eGFR by MDRD 16 mL/min/1.7 3m2 10/03/2019 9:50 PM CDT [facility] Blood BLOOD SPECIMEN / Unknown Venipuncture / Unknown 10/03/2019 9:19 PM CDT 10/03/2019 9:27 PM CDT Salvador Wheeler MD LAB - CHEMISTRY [facility] Organization Address City/State/[facility] Co de Phone Number [facility] [address] [place] [address] * PHOSPHORUS BLOOD (10/03/2019 9:19 PM CDT) Phosphorus 2.8 2.3 - 4.7 mg/dL 10/03/2019 9:48 PM CDT [facility] Blood BLOOD SPECIMEN / Unknown Venipuncture / Unknown 10/03/2019 9:19 PM CDT 10/03/2019 9:27 PM CDT Salvador Wheeler MD LAB - CHEMISTRY ORDYessenia WINSTON Performing Organization Address [facility] Co de Phone Number [facility] [id number] [place] [address] * MAGNESIUM BLOOD (10/03/2019 9:19 PM CDT) Pathologist [facility] Magnesium 1.6 1.6 - 2.6 mg/dL 10/03/2019 9:48 PM CDT [facility] Blood BLOOD SPECIMEN / Unknown Venipuncture / Unknown 10/03/2019 9:19 PM CDT 10/03/2019 9:27 PM CDT Car Castillo MD LAB - CHEMISTRY ORDERABLES Performing Organization Address [facility] Co de Phone Number [facility] [phone] [place] [id number] * LACTIC ACID BLOOD (10/03/2019 9:19 PM CDT) [facility] Lactic Acid 1.23 0.5 - 2.2 mmol/L 10/03/2019 9:40 PM CDT [facility] Blood BLOOD SPECIMEN / Unknown Venipuncture / Unknown 10/03/2019 9:19 PM CDT 10/03/2019 9:26 PM CDT Salvador Wheeler MD LAB - CHEMISTRY JEANETTE WINSTON Performing Organization Address [facility] Co de Phone Number [facility] [id number] [place] [phone] * (ABNORMAL) ISTAT EG7+ PANEL ART [...] OF CAR E ORDERABLES [facility] RESP THERAPY [id number] [phone] * XR CHEST 1VW PORTABLE (10/03/2019 8:43 [...] Reactive Non Reactive 10/03/2019 4:52 PM CDT [facility] Blood BLOOD SPECIMEN / Unknown Venipuncture / Unknown 10/03/2019 3:09 PM CDT 10/03/2019 3:47 PM CDT Lyndon Cárdenas MD LAB - CHEMISTRY JEANETTE WINSTON [facility] [address] [place] [address] * (ABNORMAL) HEPATITIS B SURFACE ANTIBODY QUANT (10/03/2019 3:08 PM CDT) Hepatitis B Virus Surface Antibody Quantitative 17.68(H) 0.00 - 7.99 mIU/ml 10/03/2019 8:19 PM CDT [facility] HBsAb REACTIVE( A) Non Reactive 10/03/2019 8:19 PM CDT [facility] Blood BLOOD SPECIMEN / Unknown Venipuncture / Unknown 10/03/2019 3:08 PM CDT 10/03/2019 3:47 PM CDT Narrative [facility] - 10/03/2019 8:19 PM CDT Individual is considered immune to HBV infection. Lyndon Cárdenas MD LAB - SEROLOGY ORDER LISE [facility] [address] [place] [address] * IR CENTRAL LINE INSERT TUNNEL (10/03/2019 [...] Prior to the beginning of the procedure, [place] Protocol was used to confirm the patient's [...] Prior to the beginning of the procedure, [place] Protocol was used to confirm the patient's [...] 5 mL/min/1.7 3m2 10/03/2019 4:19 AM CDT [facility] Blood BLOOD SPECIMEN / Unknown Venipuncture / Unknown 10/03/2019 3:43 AM CDT 10/03/2019 3:56 AM CDT Allison Molina Higinio DO LAB - CHEMISTRY JEANETTE BOYKINENRIQUETA [facility] [address] [place] [address] * VAS BILAT MAPPING FOR HEMODIALYSIS (10/02/2019 1:31 PM CDT) Only the most recent of2 resultswithin the time period is included. Anatomical Region Laterality Modality Lower Extremity, Upper Extremity Ultrasound 10/02/2019 1:19 PM CDT Narrative Procedure Note Laci De Leon MD - 10/02/2019 [facility] [place] [facility] [address] [facility], [address] [place] [address] Vessel Mapping for Hemodialysis Report Pat.Name: LEVY GISELE M Pat.ID: [id number] .Date: 10/02/2019 Refer.MD: ALEJANDRA COLES Exam Time: 1:19:00 PM Study Type:Vessel Mapping for Hemodialysis Age: 6 1945,73Y Sex: FEMALE Sonogrphr: Tee Egan RVT Pat. Stat.:Outpatient ICD - 9: N18.6 End stage renal disease CPT - 4: G0365 Procedures: Vessel Mapping for Hemodialysis Race: 2 Visit ID: [id number] ++++++++++++++++++++++++++++++++++++ SUMMARY: ++++++++++++++++++++++++++++++++++++ The left axillary vein [...] Note Marco Antonio Ramos MD - 01/31/2019 [facility] [place] [address], [address] [place] [address] Hemodialysis Graft Report Pat.Name: GISELE CENTENO Pat.ID: [id number] .Date: 01/31/2019 Exam Time: 2:16:00 PM Study Type:Hemodialysis Graft Age: 6 1945,73Y Sex: FEMALE Sonogrphr: Tee Egan RVT Pat. Stat.:Outpatient ICD - 9: N18.6 End stage renal disease CPT - 4: 23300 Procedures: AV Fistula Evaluation Visit ID: [id number] ++++++++++++++++++++++++++++++++++++ SUMMARY: ++++++++++++++++++++++++++++++++++++ Patent left upper AV [...] 5:55 AM CDT) Culture Urine KLEBSIELLA PNEUMONIAE(A) [facility] Comment:1,000,000 CFU/ML Kle bsiella Pneumoniae Urine specimen (specimen) URINE SPECIMEN OBTAINED BY SINGLE CATHETERIZATION OF URINARY BLADDER / Unknown 09/16/2013 5:55 AM CDT 09/16/2013 4:26 PM CDT [facility] - 09/18/2013 9:37 AM CDT BlackSpecimen#[id number] Black Loc/Rm/Bed: ED// STRAIGHT U @09/16/13 0659: URINE CULTURE added. [facility] = [facility]. Organism Antibiotic Method Susceptibility Klebsiella pneumoniae Amikacin [...] Provider MD LAB - MICROBIOLOG Y ORDERABLES [address] [phone] Care Teams Case Supervisor Relationship Specialty Start Date End Date Shahid Powell MD [address] [place] [phone] PCP - General 10/05/10
--- OUTSIDE RECORDS SUMMARY | 2024-06-13 13:54 | XMS_ITS ---
Author Organization [facility] ([facility]) Address [address] [place] [id number] Care Team Providers Care Splitter Machine Name Role Phone Unavailable Unavailable Unavailable Allergies, Adverse Reactions, Alerts Allergy Name Allergy Type Status Severity Reaction(s) Onset Date Inactive Date Treating Clinician Comments Ibuprofen Allergy Active Moderate Allergy 2018-07 05:00:0 0 Medications Ordered Medication Name Filled Medication Name Start Date Stop Date Current Medication? Ordering Clinician Indication Dosage Frequency Signature (SIG) Comments Components Mircera 06-02 06:00: 00 Yes [id number] Number of Repeats Allowed: Frequency: ZOYA dosing, every two weeks Zinc 12-29 14:20: 25 Yes Number of Repeats Allowed: Frequency: One time a day Melatonin 12-29 14:19: 26 Yes Number of Repeats Allowed: Frequency: Once a day, at bedtime Vitamin E 12-29 14:19: 05 Yes Number of Repeats Allowed: Frequency: One time a day Beet Root 12-29 14:18: 05 Yes Number of Repeats Allowed: Frequency: One time a day Levothyroxi ne Sodium 12-29 14:13: 24 Yes Number of Repeats Allowed: Frequency: Once a day, at bedtime Vitamin D-3 08-26 16:10: 35 Yes Number of Repeats Allowed: Frequency: One time a day Triphrocaps 08-26 16:09: 54 Yes Number of Repeats Allowed: Frequency: One time a day Tradjenta 08-26 16:09: 34 Yes Number of Repeats Allowed: Frequency: One time a day Sertraline HCl 08-26 16:09: 13 Yes Number of Repeats Allowed: Frequency: Once a day, at bedtime Ondansetron 08-26 16:08: 53 Yes Number of Repeats Allowed: Frequency: As needed Colace 08-26 16:06: 29 Yes Number of Repeats Allowed: Frequency: One time a day Atorvastati n Calcium 08-26 16:04: 00 Yes Number of Repeats Allowed: Frequency: One time a day ONS [facility] 08-05 19:08: 47 Yes [id number] Number of Repeats Allowed: Frequency: Every Dialysis Treatment Oxygen 07-29 12:07: 31 Yes [id number] Number of Repeats Allowed: Frequency: As needed ondansetron hydrochlori de 07-29 12:07: 19 Yes [id number] Number of Repeats Allowed: Frequency: Every 4 hours as needed Normal Saline Solution 0.9% NaCl 07-29 12:07: 11 Yes [id number] Number of Repeats Allowed: Frequency: As needed EpiPen 2-Sidney 07-29 12:07: 03 Yes [id number] Number of Repeats Allowed: Frequency: Every 4 hours as needed diphenhydra mine hydrochlori de 07-29 12:06: 55 Yes [id number] Number of Repeats Allowed: Frequency: Every 4 hours as needed diphenhydra mine hydrochlori de 07-29 12:06: 41 Yes [id number] Number of Repeats Allowed: Frequency: Every 4 hours as needed clonidine 07-29 12:06: 31 Yes [id number] Number of Repeats Allowed: Frequency: Every 4 hours as needed acetaminoph en 07-29 12:06: 20 Yes [id number] Number of Repeats Allowed: Frequency: Every 4 hours as needed heparin sodium, porcine 07-26 17:49: 09 Yes [id number] Number of Repeats Allowed: Frequency: Every Dialysis TreatmentD osesOrdere d: Hourly Dose 1000 Units/Hr 1:1000 Units/mLRo lorelei: Intravenou s heparin sodium, porcine 07-26 17:49: 09 Yes [id number] Number of Repeats Allowed: Frequency: Every Dialysis TreatmentD osesOrdere d: Loading Dose 1250 Units 1:1000 Units/mLRo lorelei: Intravenou s Problems This patient has no known problems. Procedures Procedure Date / Time Performed Performing Clinician Myrtle chawla Details AV Graft 2018-10-04 05:00:00 Access Surgeon SHARYN ROBERTS MD ([id number]),[place], [place] Access Site Upper Arm (Left) Access Use Start Date 2019-05-20 06:00:0 0 AV [id number] 05:00:00 Access Surgeon SHARYN ROBERTS MD ([id number]),[place] Access Site Upper Arm (Left) Access Use Start Date 2019-05-20 06:00:0 0 Access Use End Date 2024-04-11 06:00:00 DIALYSIS TREATMENT INFORMATION Conventional Hemodialysis Date Type Treatment Start Date Treatment End Date Pre-Treatment Vitals Post-Treatment Vitals Weight Gain BFR DFR Actual UF Dialysis Access Febru rj 2024 In-Ce nter Hemod ialys is Treat ment 2024-06-11 T15:41:19. 000Z 2024-06-11 T18:41:19. 000Z BP Sitting (Pre-Dialysis) 163/71 mmHg BP Sitting (Post-D ialysis ) 119/ 57 mmHg Sitting Heart Rate Pre-Dialysis 83 BPM Sitting H eart Rate Post-Dialysis 76 BPM Temperature Pre-Dialysis 98.4 degF Temperature Post -Dialysis 97.6 degF June 08, 2024 In-Center Hemodialysis Treatment 1540-96-24K31:42:27.000Z 4363-45-18B92:42:52.000Z BP Sitting (Pre-Dialysis) 165/122 mmHg BP Sitting (Post-Dialysis) 128/70 mmHg Concurrent Access: falseAV Graft Upper Arm (Left) Arterial Sitting Heart Rate Pre-Dialysis 86 BPM Sitting H eart Rate Post-Dialysis 89 BPM Temperature Pre-Dialysis 98.1 degF Temperature Post -Dialysis 96.3 degF June 06, 2024 In-Center Hemodialysis Treatment 4851-44-93H91:38:00.000Z 5990-05-20D08:30:05.000Z BP Sitting (Pre-Dialysis) 153/84 mmHg BP Sitting (Post-Dialysis) 150/71 mmHg Concurrent Access: falseAV Graft Upper Arm (Left) Arterial Sitting Heart Rate Pre-Dialysis 84 BPM Sitting H eart Rate Post-Dialysis 79 BPM Temperature Pre-Dialysis 98.1 degF Temperature Post -Dialysis 97.9 degF June 04, 2024 In-Center Hemodialysis Treatment 7332-77-83T15:44:00.000Z 2739-40-75J69:47:04.000Z BP Sitting (Pre-Dialysis) 133/68 mmHg BP Sitting (Post-Dialysis) 156/84 mmHg Concurrent Access: falseAV Graft Upper Arm (Left) Arterial Sitting Heart Rate Pre-Dialysis 83 BPM Sitting H eart Rate Post-Dialysis 81 BPM Temperature Pre-Dialysis 97.8 degF Temperature Post -Dialysis 97.8 degF June 01, 2024 In-Center Hemodialysis Treatment 6587-34-42W18:20:04.000Z 4073-69-75Q36:20:04.000Z BP Sitting (Pre-Dialysis) 161/103 mmHg BP Sitting (Post-Dialysis) 162/84 mmHg Concurrent Access: falseAV Graft Upper Arm (Left) Arterial Sitting Heart Rate Pre-Dialysis 93 BPM Sitting H eart Rate Post-Dialysis 79 BPM Temperature Pre-Dialysis 98.2 degF Temperature Post -Dialysis 97.8 degF May 30, 2024 In-Center Hemodialysis Treatment 0407-11-87N69:45:00.000Z 5860-87-10Z06:44:55.000Z BP Sitting (Pre-Dialysis) 155/74 mmHg BP Sitting (Post-Dialysis) 149/82 mmHg Concurrent Access: falseAV Graft Upper Arm (Left) Arterial Sitting Heart Rate Pre-Dialysis 90 BPM Sitting H eart Rate Post-Dialysis 82 BPM Temperature Pre-Dialysis 98 degF Temperature Post -Dialysis 97.4 degF May 28, 2024 In-Center Hemodialysis Treatment 9825-11-79D06:50:23.000Z 0785-26-02F16:01:37.000Z BP Sitting (Pre-Dialysis) 188/82 mmHg BP Sitting (Post-Dialysis) 174/74 mmHg Concurrent Access: falseAV Graft Upper Arm (Left) Arterial Sitting Heart Rate Pre-Dialysis 94 BPM Sitting H eart Rate Post-Dialysis 75 BPM Temperature Pre-Dialysis 98.2 degF Temperature Post -Dialysis 97.6 degF May 25, 2024 In-Center Hemodialysis Treatment 0132-11-10O34:31:21.000Z 3102-73-65A56:31:21.000Z BP Sitting (Pre-Dialysis) 181/91 mmHg BP Sitting (Post-Dialysis) 149/84 mmHg Concurrent Access: falseAV Graft Upper Arm (Left) Arterial Sitting Heart Rate Pre-Dialysis 88 BPM Sitting H eart Rate Post-Dialysis 80 BPM Temperature Pre-Dialysis 98 degF Temperature Post -Dialysis 97.8 degF May 23, 2024 In-Center Hemodialysis Treatment 5849-79-47G89:40:41.000Z 9101-47-97B79:42:21.000Z BP Sitting (Pre-Dialysis) 155/96 mmHg BP Sitting (Post-Dialysis) 139/71 mmHg Concurrent Access: falseAV Graft Upper Arm (Left) Arterial Sitting Heart Rate Pre-Dialysis 95 BPM Sitting H eart Rate Post-Dialysis 79 BPM Temperature Pre-Dialysis 98.3 degF Temperature Post -Dialysis 98 degF May 21, 2024 In-Center Hemodialysis Treatment 0467-34-28D37:46:00.000Z 7494-83-17V24:49:32.000Z BP Sitting (Pre-Dialysis) 145/98 mmHg BP Sitting (Post-Dialysis) 160/71 mmHg Concurrent Access: falseAV Graft Upper Arm (Left) Arterial Sitting Heart Rate Pre-Dialysis 95 BPM Sitting H eart Rate Post-Dialysis 75 BPM Temperature Pre-Dialysis 98.1 degF Temperature Post -Dialysis 97.2 degF May 18, 2024 In-Center Hemodialysis Treatment 7287-76-51C04:50:07.000Z 8010-80-94X39:55:07.000Z BP Sitting (Pre-Dialysis) 158/93 mmHg BP Sitting (Post-Dialysis) 129/84 mmHg Concurrent Access: falseAV Graft Upper Arm (Left) Arterial Sitting Heart Rate Pre-Dialysis 90 BPM Sitting H eart Rate Post-Dialysis 73 BPM Temperature Pre-Dialysis 99.1 degF Temperature Post -Dialysis 98.2 degF May 16, 2024 In-Center Hemodialysis Treatment 3405-38-46Z30:58:00.000Z 7795-85-56Q23:00:00.000Z BP Sitting (Pre-Dialysis) 165/74 mmHg BP Sitting (Post-Dialysis) 200/85 mmHg Concurrent Access: falseAV Graft Upper Arm (Left) Arterial Sitting Heart Rate Pre-Dialysis 86 BPM Sitting H eart Rate Post-Dialysis 78 BPM Temperature Pre-Dialysis 98 degF Temperature Post -Dialysis 97.2 degF May 14, 2024 In-Center Hemodialysis Treatment 5900-32-39R17:43:23.000Z 0039-11-03C35:43:23.000Z BP Sitting (Pre-Dialysis) 175/71 mmHg BP Sitting (Post-Dialysis) 185/98 mmHg Concurrent Access: falseAV Graft Upper Arm (Left) Arterial Sitting Heart Rate Pre-Dialysis 91 BPM Sitting H eart Rate Post-Dialysis 61 BPM Temperature Pre-Dialysis 97.8 degF Temperature Post -Dialysis 96.8 degF May 11, 2024 In-Center Hemodialysis Treatment 7137-07-70U97:59:26.000Z 2121-61-32P81:59:26.000Z BP Sitting (Pre-Dialysis) 153/129 mmHg BP Sitting (Post-Dialysis) 164/74 mmHg Concurrent Access: falseAV Graft Upper Arm (Left) Arterial Sitting Heart Rate Pre-Dialysis 50 BPM Sitting H eart Rate Post-Dialysis 83 BPM Temperature Pre-Dialysis 98 degF Temperature Post -Dialysis 97 degF May 09, 2024 In-Center Hemodialysis Treatment 2601-22-93U85:42:57.000Z 2385-34-04D85:42:57.000Z BP Sitting (Pre-Dialysis) 159/116 mmHg BP Sitting (Post-Dialysis) 177/105 mmHg Concurrent Access: falseAV Graft Upper Arm (Left) Arterial Sitting Heart Rate Pre-Dialysis 82 BPM Sitting H eart Rate Post-Dialysis 92 BPM Temperature Pre-Dialysis 98.1 degF Temperature Post -Dialysis 97.5 degF May 06, 2024 In-Center Hemodialysis Treatment 7316-33-13S46:33:00.000Z 7884-65-43Q38:34:44.000Z BP Sitting (Pre-Dialysis) 161/71 mmHg BP Sitting (Post-Dialysis) 149/91 mmHg Concurrent Access: falseAV Graft Upper Arm (Left) Arterial Sitting Heart Rate Pre-Dialysis 88 BPM Sitting H eart Rate Post-Dialysis 89 BPM Temperature Pre-Dialysis 98 degF Temperature Post -Dialysis 97.8 degF May 04, 2024 In-Center Hemodialysis Treatment 7409-20-49U40:34:44.000Z 7830-22-43Z91:33:29.000Z BP Sitting (Pre-Dialysis) 192/92 mmHg BP Sitting (Post-Dialysis) 162/97 mmHg Concurrent Access: falseAV Graft Upper Arm (Left) Arterial Sitting Heart Rate Pre-Dialysis 87 BPM Sitting H eart Rate Post-Dialysis 76 BPM Temperature Pre-Dialysis 98.1 degF Temperature Post -Dialysis 98 degF May 02, 2024 In-Center Hemodialysis Treatment 7225-18-71W36:03:43.000Z 6649-97-07L76:08:18.000Z BP Sitting (Pre-Dialysis) 201/82 mmHg BP Sitting (Post-Dialysis) 154/78 mmHg Concurrent Access: falseAV Graft Upper Arm (Left) Arterial Sitting Heart Rate Pre-Dialysis 87 BPM Sitting H eart Rate Post-Dialysis 84 BPM Temperature Pre-Dialysis 98.4 degF Temperature Post -Dialysis 97.5 degF April 29, 2024 In-Center Hemodialysis Treatment 0927-53-91K27:07:00.000Z 3659-00-00B87:13:21.000Z BP Sitting (Pre-Dialysis) 189/98 mmHg BP Sitting (Post-Dialysis) 182/118 mmHg Concurrent Access: falseAV Graft Upper Arm (Left) Arterial Sitting Heart Rate Pre-Dialysis 87 BPM Sitting H eart Rate Post-Dialysis 80 BPM Temperature Pre-Dialysis 98.2 degF Temperature Post -Dialysis 97.6 degF April 27, 2024 In-Center Hemodialysis Treatment 0843-04-46J56:45:00.000Z 6493-01-88G03:45:17.000Z BP Sitting (Pre-Dialysis) 192/99 mmHg BP Sitting (Post-Dialysis) 157/95 mmHg Concurrent Access: falseAV Graft Upper Arm (Left) Arterial Sitting Heart Rate Pre-Dialysis 93 BPM Sitting H eart Rate Post-Dialysis 89 BPM Temperature Pre-Dialysis 98 degF Temperature Post -Dialysis 97.9 degF April 25, 2024 In-Center Hemodialysis Treatment 9126-16-33X81:42:50.000Z 9089-32-40C36:47:25.000Z BP Sitting (Pre-Dialysis) 152/78 mmHg BP Sitting (Post-Dialysis) 163/97 mmHg Concurrent Access: falseAV Graft Upper Arm (Left) Arterial Sitting Heart Rate Pre-Dialysis 91 BPM Sitting H eart Rate Post-Dialysis 82 BPM Temperature Pre-Dialysis 98.2 degF Temperature Post -Dialysis 97.9 degF April 23, 2024 In-Center Hemodialysis Treatment 7190-42-31Q36:53:00.000Z 6101-80-13S13:52:00.000Z BP Sitting (Pre-Dialysis) 173/89 mmHg BP Sitting (Post-Dialysis) 162/106 mmHg Concurrent Access: falseAV Graft Upper Arm (Left) Arterial Sitting Heart Rate Pre-Dialysis 82 BPM Sitting H eart Rate Post-Dialysis 83 BPM Temperature Pre-Dialysis 97.9 degF Temperature Post -Dialysis 97.6 degF April 20, 2024 In-Center Hemodialysis Treatment 9096-36-27L52:47:00.000Z 7321-17-16O84:48:46.000Z BP Sitting (Pre-Dialysis) 188/90 mmHg BP Sitting (Post-Dialysis) 160/46 mmHg Concurrent Access: falseAV Graft Upper Arm (Left) Arterial Sitting Heart Rate Pre-Dialysis 93 BPM Sitting H eart Rate Post-Dialysis 73 BPM Temperature Pre-Dialysis 98.7 degF Temperature Post -Dialysis 97.4 degF April 18, 2024 In-Center Hemodialysis Treatment 6040-41-20T09:49:37.000Z 1416-85-69J09:49:35.000Z BP Sitting (Pre-Dialysis) 174/78 mmHg BP Sitting (Post-Dialysis) 152/90 mmHg Concurrent Access: falseAV Graft Upper Arm (Left) Arterial Sitting Heart Rate Pre-Dialysis 95 BPM Sitting H eart Rate Post-Dialysis 81 BPM Temperature Pre-Dialysis 98 degF Temperature Post -Dialysis 98 degF April 16, 2024 In-Center Hemodialysis Treatment 2622-50-87J46:52:00.000Z 1906-77-64K52:59:11.000Z BP Sitting (Pre-Dialysis) 195/92 mmHg BP Sitting (Post-Dialysis) 168/84 mmHg Concurrent Access: falseAV Graft Upper Arm (Left) Arterial Sitting Heart Rate Pre-Dialysis 94 BPM BP Standing (Post-Dialysis) 149/68 mmHg Temperature Pre-Dialysis 97.9 degF Sitting Heart Ra te Post-Dialysis 88 BPM Standing Heart Rate Post-Carissa lysis 88 BPM Temperature Post-Dialysis 98 degF April 13, 2024 In-Center Hemodialysis Treatment 3731-18-00C60:07:00.000Z 4046-49-18K33:11:11.000Z BP Sitting (Pre-Dialysis) 186/96 mmHg BP Sitting (Post-Dialysis) 158/97 mmHg Concurrent Access: falseAV Graft Upper Arm (Left) Arterial Sitting Heart Rate Pre-Dialysis 93 BPM Sitting H eart Rate Post-Dialysis 79 BPM Temperature Pre-Dialysis 97.5 degF Temperature Post -Dialysis 98 degF April 11, 2024 In-Center Hemodialysis Treatment 8957-77-13N53:56:28.000Z 7493-37-33W62:32:18.000Z BP Sitting (Pre-Dialysis) 158/97 mmHg BP Sitting (Post-Dialysis) 157/81 mmHg Concurrent Access: falseAV Graft Upper Arm (Left) ArterialAV Fistula Upper Arm (Left) Venous Sitting Heart Rate Pre-Dialysis 91 BPM Sitting H eart Rate Post-Dialysis 101 BPM Temperature Pre-Dialysis 98.7 degF Temperature Post -Dialysis 97.8 degF April 09, 2024 In-Center Hemodialysis Treatment 5125-55-22U90:33:00.000Z 2389-90-10U06:23:56.000Z BP Sitting (Pre-Dialysis) 174/72 mmHg BP Sitting (Post-Dialysis) 142/89 mmHg Concurrent Access: falseAV Graft Upper Arm (Left) ArterialAV Fistula Upper Arm (Left) Venous Sitting Heart Rate Pre-Dialysis 95 BPM Sitting H eart Rate Post-Dialysis 77 BPM Temperature Pre-Dialysis 98.7 degF Temperature Post -Dialysis 96.8 degF April 06, 2024 In-Center Hemodialysis Treatment 6708-60-97X18:44:44.000Z 6974-54-77S85:56:24.000Z BP Sitting (Pre-Dialysis) 199/106 mmHg BP Sitting (Post-Dialysis) 190/94 mmHg Concurrent Access: falseAV Graft Upper Arm (Left) ArterialAV Fistula Upper Arm (Left) Venous Sitting Heart Rate Pre-Dialysis 95 BPM Sitting H eart Rate Post-Dialysis 86 BPM Temperature Pre-Dialysis 98.3 degF Temperature Post -Dialysis 97.5 degF April 03, 2024 In-Center Hemodialysis Treatment 1924-29-39O93:28:10.000Z 1462-92-40D96:27:45.000Z BP Sitting (Pre-Dialysis) 186/75 mmHg BP Sitting (Post-Dialysis) 174/80 mmHg Concurrent Access: falseAV Graft Upper Arm (Left) ArterialAV Fistula Upper Arm (Left) Venous Sitting Heart Rate Pre-Dialysis 93 BPM Sitting H eart Rate Post-Dialysis 79 BPM Temperature Pre-Dialysis 97.2 degF Temperature Post -Dialysis 97.5 degF April 01, 2024 In-Center Hemodialysis Treatment 2104-53-58C68:49:00.000Z 1680-20-74A36:50:37.000Z BP Sitting (Pre-Dialysis) 168/98 mmHg BP Sitting (Post-Dialysis) 136/73 mmHg Concurrent Access: falseAV Graft Upper Arm (Left) ArterialAV Fistula Upper Arm (Left) Venous Sitting Heart Rate Pre-Dialysis 85 BPM Sitting H eart Rate Post-Dialysis 78 BPM Temperature Pre-Dialysis 97.2 degF Temperature Post -Dialysis 96.9 degF March 30, 2024 In-Center Hemodialysis Treatment 3668-39-47D84:06:50.000Z 3108-85-86V12:11:50.000Z BP Sitting (Pre-Dialysis) 171/93 mmHg BP Sitting (Post-Dialysis) 135/63 mmHg Concurrent Access: falseAV Graft Upper Arm (Left) ArterialAV Fistula Upper Arm (Left) Venous Sitting Heart Rate Pre-Dialysis 85 BPM Sitting H eart Rate Post-Dialysis 78 BPM Temperature Pre-Dialysis 98.3 degF Temperature Post -Dialysis 97.5 degF March 28, 2024 In-Center Hemodialysis Treatment 0915-55-00D20:48:26.000Z 2744-82-97K14:49:41.000Z BP Sitting (Pre-Dialysis) 182/81 mmHg BP Sitting (Post-Dialysis) 165/101 mmHg Concurrent Access: falseAV Graft Upper Arm (Left) ArterialAV Fistula Upper Arm (Left) Venous Sitting Heart Rate Pre-Dialysis 84 BPM Sitting H eart Rate Post-Dialysis 85 BPM Temperature Pre-Dialysis 97.8 degF Temperature Post -Dialysis 97.6 degF March 26, 2024 In-Center Hemodialysis Treatment 2396-20-00Z67:54:00.000Z 5646-02-41K69:56:51.000Z BP Sitting (Pre-Dialysis) 174/87 mmHg BP Sitting (Post-Dialysis) 148/73 mmHg Concurrent Access: falseAV Graft Upper Arm (Left) ArterialAV Fistula Upper Arm (Left) Venous Sitting Heart Rate Pre-Dialysis 86 BPM Sitting H eart Rate Post-Dialysis 82 BPM Temperature Pre-Dialysis 98 degF Temperature Post -Dialysis 97.3 degF March 23, 2024 In-Center Hemodialysis Treatment 6922-41-71M46:43:00.000Z 2180-69-88K44:46:55.000Z BP Sitting (Pre-Dialysis) 181/88 mmHg BP Sitting (Post-Dialysis) 156/81 mmHg Concurrent Access: falseAV Graft Upper Arm (Left) ArterialAV Fistula Upper Arm (Left) Venous Sitting Heart Rate Pre-Dialysis 91 BPM Sitting H eart Rate Post-Dialysis 86 BPM Temperature Pre-Dialysis 97.7 degF Temperature Post -Dialysis 97.2 degF March 21, 2024 In-Center Hemodialysis Treatment 4197-52-14J90:09:05.000Z 5629-71-85L25:23:40.000Z BP Sitting (Pre-Dialysis) 181/86 mmHg BP Sitting (Post-Dialysis) 164/92 mmHg Concurrent Access: falseAV Graft Upper Arm (Left) ArterialAV Fistula Upper Arm (Left) Venous Sitting Heart Rate Pre-Dialysis 62 BPM Sitting H eart Rate Post-Dialysis 86 BPM Temperature Pre-Dialysis 97.8 degF Temperature Post -Dialysis 97.9 degF March 19, 2024 In-Center Hemodialysis Treatment 1067-77-92C32:46:00.000Z 3698-52-55A44:48:11.000Z BP Sitting (Pre-Dialysis) 161/82 mmHg BP Sitting (Post-Dialysis) 134/73 mmHg Concurrent Access: falseAV Graft Upper Arm (Left) ArterialAV Fistula Upper Arm (Left) Venous Sitting Heart Rate Pre-Dialysis 92 BPM Sitting H eart Rate Post-Dialysis 87 BPM Temperature Pre-Dialysis 97.3 degF Temperature Post -Dialysis 98 degF March 16, 2024 In-Center Hemodialysis Treatment 5517-18-47X89:11:00.000Z 8512-25-68W06:53:05.000Z BP Sitting (Pre-Dialysis) 167/95 mmHg BP Sitting (Post-Dialysis) 143/81 mmHg Concurrent Access: falseAV Graft Upper Arm (Left) ArterialAV Fistula Upper Arm (Left) Venous Sitting Heart Rate Pre-Dialysis 97 BPM Sitting H eart Rate Post-Dialysis 84 BPM Temperature Pre-Dialysis 97.6 degF Temperature Post -Dialysis 97.4 degF March 14, 2024 In-Center Hemodialysis Treatment 4692-55-40K65:57:00.000Z 6269-40-66M78:00:08.000Z BP Sitting (Pre-Dialysis) 180/88 mmHg BP Sitting (Post-Dialysis) 124/63 mmHg Concurrent Access: falseAV Graft Upper Arm (Left) ArterialAV Fistula Upper Arm (Left) Venous Sitting Heart Rate Pre-Dialysis 96 BPM Sitting H eart Rate Post-Dialysis 94 BPM Temperature Pre-Dialysis 98 degF Temperature Post -Dialysis 97.1 degF March 12, 2024 In-Center Hemodialysis Treatment 8713-00-39B44:11:00.000Z 8826-29-51H52:13:07.000Z BP Sitting (Pre-Dialysis) 196/99 mmHg BP Sitting (Post-Dialysis) 174/86 mmHg Concurrent Access: falseAV Graft Upper Arm (Left) ArterialAV Fistula Upper Arm (Left) Venous Sitting Heart Rate Pre-Dialysis 96 BPM Sitting H eart Rate Post-Dialysis 83 BPM Temperature Pre-Dialysis 98 degF Temperature Post -Dialysis 97.6 degF March 09, 2024 In-Center Hemodialysis Treatment 4081-33-90E67:42:18.000Z 1457-94-00S72:42:43.000Z BP Sitting (Pre-Dialysis) 184/104 mmHg BP Sitting (Post-Dialysis) 159/68 mmHg Concurrent Access: falseAV Graft Upper Arm (Left) ArterialAV Fistula Upper Arm (Left) Venous Sitting Heart Rate Pre-Dialysis 94 BPM Sitting H eart Rate Post-Dialysis 87 BPM Temperature Pre-Dialysis 98.4 degF Temperature Post -Dialysis 97.3 degF March 07, 2024 In-Center Hemodialysis Treatment 6205-41-14U00:08:46.000Z 3035-48-80B98:10:01.000Z BP Sitting (Pre-Dialysis) 191/87 mmHg BP Sitting (Post-Dialysis) 164/88 mmHg Concurrent Access: falseAV Fistula Upper Arm (Left) Arterial Sitting Heart Rate Pre-Dialysis 88 BPM BP Standing (Post-Dialysis) 149/71 mmHg Temperature Pre-Dialysis 97.8 degF Sitting Heart Ra te Post-Dialysis 82 BPM Standing Heart Rate Post-Carissa lysis 55 BPM Temperature Post-Dialysis 98 degF March 05, 2024 In-Center Hemodialysis Treatment 7824-90-20P49:11:20.000Z 3552-35-82F74:18:50.000Z BP Sitting (Pre-Dialysis) 183/90 mmHg BP Sitting (Post-Dialysis) 191/80 mmHg Concurrent Access: falseAV Fistula Upper Arm (Left) Arterial Sitting Heart Rate Pre-Dialysis 90 BPM Sitting H eart Rate Post-Dialysis 83 BPM Temperature Pre-Dialysis 97.9 degF March 02, 2024 In-Center Hemodialysis Treatment 7109-23-27N74:12:13.000Z 2129-42-17F86:18:53.000Z BP Sitting (Pre-Dialysis) 171/78 mmHg BP Sitting (Post-Dialysis) 178/66 mmHg Concurrent Access: falseAV Fistula Upper Arm (Left) Arterial Sitting Heart Rate Pre-Dialysis 87 BPM Sitting H eart Rate Post-Dialysis 65 BPM Temperature Pre-Dialysis 97 degF Temperature Post -Dialysis 98.1 degF February 29, 2024 In-Center Hemodialysis Treatment 9840-33-99Y89:55:41.000Z 2614-74-57O41:00:41.000Z BP Sitting (Pre-Dialysis) 164/85 mmHg BP Sitting (Post-Dialysis) 150/54 mmHg Concurrent Access: falseAV Fistula Upper Arm (Left) Arterial Sitting Heart Rate Pre-Dialysis 88 BPM Sitting H eart Rate Post-Dialysis 70 BPM Temperature Pre-Dialysis 98 degF Temperature Post -Dialysis 98 degF February 27, 2024 In-Center Hemodialysis Treatment 1250-18-23Q44:49:00.000Z 2961-13-46F29:46:45.000Z BP Sitting (Pre-Dialysis) 149/73 mmHg BP Sitting (Post-Dialysis) 166/76 mmHg Concurrent Access: falseAV Fistula Upper Arm (Left) Arterial Sitting Heart Rate Pre-Dialysis 86 BPM Sitting H eart Rate Post-Dialysis 77 BPM Temperature Pre-Dialysis 97.1 degF Temperature Post -Dialysis 96.7 degF February 24, 2024 In-Center Hemodialysis Treatment 0084-03-72C14:16:35.000Z 9429-07-11L44:17:00.000Z BP Sitting (Pre-Dialysis) 138/71 mmHg BP Sitting (Post-Dialysis) 162/75 mmHg Concurrent Access: falseAV Fistula Upper Arm (Left) Arterial Sitting Heart Rate Pre-Dialysis 94 BPM Sitting H eart Rate Post-Dialysis 84 BPM Temperature Pre-Dialysis 98.2 degF Temperature Post -Dialysis 98.6 degF February 22, 2024 In-Center Hemodialysis Treatment 3988-58-87H69:32:00.000Z 5480-67-44Q78:36:54.000Z BP Sitting (Pre-Dialysis) 167/72 mmHg BP Sitting (Post-Dialysis) 166/84 mmHg Concurrent Access: falseAV Fistula Upper Arm (Left) Arterial Sitting Heart Rate Pre-Dialysis 96 BPM Sitting H eart Rate Post-Dialysis 79 BPM Temperature Pre-Dialysis 98 degF Temperature Post -Dialysis 97.2 degF February 20, 2024 In-Center Hemodialysis Treatment 1257-48-32T15:47:38.000Z 9009-36-11J04:48:03.000Z BP Sitting (Pre-Dialysis) 120/99 mmHg BP Sitting (Post-Dialysis) 154/48 mmHg Concurrent Access: falseAV Fistula Upper Arm (Left) Arterial Sitting Heart Rate Pre-Dialysis 98 BPM Sitting H eart Rate Post-Dialysis 81 BPM Temperature Pre-Dialysis 97.3 degF Temperature Post -Dialysis 98.1 degF February 17, 2024 In-Center Hemodialysis Treatment 2982-34-77C89:54:00.000Z 9196-10-74T12:55:35.000Z BP Sitting (Pre-Dialysis) 169/73 mmHg BP Sitting (Post-Dialysis) 183/94 mmHg Concurrent Access: falseAV Fistula Upper Arm (Left) Arterial Sitting Heart Rate Pre-Dialysis 80 BPM Sitting H eart Rate Post-Dialysis 84 BPM Temperature Pre-Dialysis 97.2 degF Temperature Post -Dialysis 98.2 degF February 15, 2024 In-Center Hemodialysis Treatment 0934-52-54H17:02:00.000Z 0785-95-44D87:18:54.000Z BP Sitting (Pre-Dialysis) 161/61 mmHg BP Sitting (Post-Dialysis) 166/74 mmHg Concurrent Access: falseAV Fistula Upper Arm (Left) Arterial Sitting Heart Rate Pre-Dialysis 80 BPM Sitting H eart Rate Post-Dialysis 81 BPM Temperature Pre-Dialysis 98.3 degF Temperature Post -Dialysis 97.8 degF February 13, 2024 In-Center Hemodialysis Treatment [id number]:40:00.000Z 2208-09-49O84:46:59.000Z BP Sitting (Pre-Dialysis) 171/63 mmHg BP Sitting (Post-Dialysis) 160/80 mmHg Concurrent Access: falseAV Fistula Upper Arm (Left) Arterial Sitting Heart Rate Pre-Dialysis 76 BPM Sitting H eart Rate Post-Dialysis 85 BPM Temperature Pre-Dialysis 98 degF Temperature Post -Dialysis 96.6 degF February 10, 2024 In-Center Hemodialysis Treatment 8705-17-34N05:54:34.000Z 8921-66-03K83:54:09.000Z BP Sitting (Pre-Dialysis) 163/70 mmHg BP Sitting (Post-Dialysis) 153/78 mmHg Concurrent Access: falseAV Fistula Upper Arm (Left) Arterial Sitting Heart Rate Pre-Dialysis 82 BPM Sitting H eart Rate Post-Dialysis 83 BPM Temperature Pre-Dialysis 97.7 degF Temperature Post -Dialysis 97.5 degF February 08, 2024 In-Center Hemodialysis Treatment 2470-76-18T50:52:34.000Z 8944-87-53V20:06:19.000Z BP Sitting (Pre-Dialysis) 175/76 mmHg BP Sitting (Post-Dialysis) 147/68 mmHg Concurrent Access: falseAV Fistula Upper Arm (Left) Arterial Sitting Heart Rate Pre-Dialysis 75 BPM Sitting H eart Rate Post-Dialysis 74 BPM Temperature Pre-Dialysis 98 degF Temperature Post -Dialysis 97.4 degF February 06, 2024 In-Center Hemodialysis Treatment 4048-37-88N75:41:22.000Z 3143-00-44R74:47:12.000Z BP Sitting (Pre-Dialysis) 174/81 mmHg BP Sitting (Post-Dialysis) 174/85 mmHg Concurrent Access: falseAV Fistula Upper Arm (Left) Arterial Sitting Heart Rate Pre-Dialysis 75 BPM Sitting H eart Rate Post-Dialysis 69 BPM Temperature Pre-Dialysis 97.7 degF Temperature Post -Dialysis 97.8 degF February 03, 2024 In-Center Hemodialysis Treatment 8984-06-96W81:46:34.000Z 2479-06-99G44:50:19.000Z BP Sitting (Pre-Dialysis) 168/75 mmHg BP Sitting (Post-Dialysis) 163/74 mmHg Concurrent Access: falseAV Fistula Upper Arm (Left) Arterial Sitting Heart Rate Pre-Dialysis 76 BPM Sitting H eart Rate Post-Dialysis 72 BPM Temperature Pre-Dialysis 97.5 degF Temperature Post -Dialysis 98.1 degF February 01, 2024 In-Center Hemodialysis Treatment 0428-76-62J54:33:23.000Z 4089-86-84S62:48:48.000Z BP Sitting (Pre-Dialysis) 154/74 mmHg BP Sitting (Post-Dialysis) 106/78 mmHg Concurrent Access: falseAV Fistula Upper Arm (Left) Arterial Sitting Heart Rate Pre-Dialysis 73 BPM Sitting H eart Rate Post-Dialysis 88 BPM Temperature Pre-Dialysis 97.6 degF Temperature Post -Dialysis 97 degF January 30, 2024 In-Center Hemodialysis Treatment 5252-30-38U68:49:19.000Z 2748-57-19K04:57:14.000Z BP Sitting (Pre-Dialysis) 161/79 mmHg BP Sitting (Post-Dialysis) 127/74 mmHg Concurrent Access: falseAV Fistula Upper Arm (Left) Arterial Sitting Heart Rate Pre-Dialysis 89 BPM Sitting H eart Rate Post-Dialysis 91 BPM Temperature Pre-Dialysis 97.2 degF Temperature Post -Dialysis 97.6 degF January 25, 2024 In-Center Hemodialysis Treatment 0527-57-37R98:57:14.000Z 7899-03-21A89:02:39.000Z BP Sitting (Pre-Dialysis) 164/56 mmHg BP Sitting (Post-Dialysis) 138/75 mmHg Concurrent Access: falseAV Fistula Upper Arm (Left) Arterial Sitting Heart Rate Pre-Dialysis 79 BPM Sitting H eart Rate Post-Dialysis 85 BPM Temperature Pre-Dialysis 98 degF Temperature Post -Dialysis 97.4 degF January 23, 2024 In-Center Hemodialysis Treatment 6547-78-07U01:37:00.000Z 5711-62-20X71:38:06.000Z BP Sitting (Pre-Dialysis) 132/63 mmHg BP Sitting (Post-Dialysis) 152/82 mmHg Concurrent Access: falseAV Fistula Upper Arm (Left) Arterial Sitting Heart Rate Pre-Dialysis 90 BPM Sitting H eart Rate Post-Dialysis 84 BPM Temperature Pre-Dialysis 97.7 degF Temperature Post -Dialysis 97.5 degF January 20, 2024 In-Center Hemodialysis Treatment 2583-20-91G96:51:00.000Z 2383-30-16D13:54:41.000Z BP Sitting (Pre-Dialysis) 169/75 mmHg BP Sitting (Post-Dialysis) 166/67 mmHg Concurrent Access: falseAV Fistula Upper Arm (Left) Arterial Sitting Heart Rate Pre-Dialysis 69 BPM Sitting H eart Rate Post-Dialysis 74 BPM Temperature Pre-Dialysis 98 degF Temperature Post -Dialysis 97.8 degF January 18, 2024 In-Center Hemodialysis Treatment 9175-43-46Y23:05:00.000Z 1697-17-74P23:07:40.000Z BP Sitting (Pre-Dialysis) 186/88 mmHg BP Sitting (Post-Dialysis) 186/87 mmHg Concurrent Access: falseAV Fistula Upper Arm (Left) Arterial Sitting Heart Rate Pre-Dialysis 85 BPM Sitting H eart Rate Post-Dialysis 77 BPM Temperature Pre-Dialysis 97.6 degF Temperature Post -Dialysis 97.4 degF January 16, 2024 In-Center Hemodialysis Treatment 2404-02-05F26:43:41.000Z 5049-62-80Y54:44:56.000Z BP Sitting (Pre-Dialysis) 160/70 mmHg BP Sitting (Post-Dialysis) 132/50 mmHg Concurrent Access: falseAV Fistula Upper Arm (Left) Arterial Sitting Heart Rate Pre-Dialysis 79 BPM Sitting H eart Rate Post-Dialysis 61 BPM Temperature Pre-Dialysis 97.7 degF Temperature Post -Dialysis 97.2 degF January 13, 2024 In-Center Hemodialysis Treatment 9123-97-02S01:33:00.000Z 8003-16-03Q04:38:18.000Z BP Sitting (Pre-Dialysis) 171/73 mmHg BP Sitting (Post-Dialysis) 169/81 mmHg Concurrent Access: falseAV Fistula Upper Arm (Left) Arterial Sitting Heart Rate Pre-Dialysis 81 BPM Sitting H eart Rate Post-Dialysis 81 BPM Temperature Pre-Dialysis 97.6 degF Temperature Post -Dialysis 97.2 degF January 11, 2024 In-Center Hemodialysis Treatment 6229-36-59Z07:12:00.000Z 9449-30-40W80:15:00.000Z BP Sitting (Pre-Dialysis) 176/75 mmHg BP Sitting (Post-Dialysis) 165/94 mmHg Concurrent Access: falseAV Fistula Upper Arm (Left) Arterial Sitting Heart Rate Pre-Dialysis 85 BPM Sitting H eart Rate Post-Dialysis 79 BPM Temperature Pre-Dialysis 97.6 degF Temperature Post -Dialysis 97.6 degF January 09, 2024 In-Center Hemodialysis Treatment 8714-37-10I67:04:17.000Z 4645-66-21L98:03:27.000Z BP Sitting (Pre-Dialysis) 157/83 mmHg BP Sitting (Post-Dialysis) 161/67 mmHg Concurrent Access: falseAV Fistula Upper Arm (Left) Arterial Sitting Heart Rate Pre-Dialysis 90 BPM Sitting H eart Rate Post-Dialysis 85 BPM Temperature Pre-Dialysis 98 degF Temperature Post -Dialysis 98.1 degF January 06, 2024 In-Center Hemodialysis Treatment 9034-68-47S08:04:00.000Z 6780-91-15W85:10:47.000Z BP Sitting (Pre-Dialysis) 169/91 mmHg BP Sitting (Post-Dialysis) 146/75 mmHg Concurrent Access: falseAV Fistula Upper Arm (Left) Arterial Sitting Heart Rate Pre-Dialysis 89 BPM Sitting H eart Rate Post-Dialysis 93 BPM Temperature Pre-Dialysis 96.9 degF Temperature Post -Dialysis 98.2 degF January 04, 2024 In-Center Hemodialysis Treatment 4789-60-08U62:13:00.000Z 5115-97-11H68:14:06.000Z BP Sitting (Pre-Dialysis) 144/71 mmHg BP Sitting (Post-Dialysis) 132/76 mmHg Concurrent Access: falseAV Fistula Upper Arm (Left) Arterial Sitting Heart Rate Pre-Dialysis 97 BPM Sitting H eart Rate Post-Dialysis 61 BPM Temperature Pre-Dialysis 97.5 degF Temperature Post -Dialysis 97.8 degF January 02, 2024 In-Center Hemodialysis Treatment 1859-32-42S53:05:27.000Z 2738-74-74U81:06:22.000Z BP Sitting (Pre-Dialysis) 143/75 mmHg BP Sitting (Post-Dialysis) 139/67 mmHg Concurrent Access: falseAV Fistula Upper Arm (Left) Arterial Sitting Heart Rate Pre-Dialysis 83 BPM Sitting H eart Rate Post-Dialysis 68 BPM Temperature Pre-Dialysis 97.9 degF Temperature Post -Dialysis 97.7 degF December 30, 2023 In-Center Hemodialysis Treatment 0440-47-18K97:49:00.000Z 7851-03-89N00:54:01.000Z BP Sitting (Pre-Dialysis) 138/72 mmHg BP Sitting (Post-Dialysis) 135/69 mmHg Concurrent Access: falseAV Fistula Upper Arm (Left) Arterial Sitting Heart Rate Pre-Dialysis 95 BPM Sitting H eart Rate Post-Dialysis 68 BPM Temperature Pre-Dialysis 97.3 degF Temperature Post -Dialysis 97.3 degF December 28, 2023 In-Center Hemodialysis Treatment 3516-37-89J07:07:00.000Z 9884-34-43T40:14:44.000Z BP Sitting (Pre-Dialysis) 159/72 mmHg BP Sitting (Post-Dialysis) 147/66 mmHg Concurrent Access: falseAV Fistula Upper Arm (Left) Arterial Sitting Heart Rate Pre-Dialysis 93 BPM Sitting H eart Rate Post-Dialysis 76 BPM Temperature Pre-Dialysis 97.2 degF Temperature Post -Dialysis 97.5 degF December 26, 2023 In-Center Hemodialysis Treatment 1537-16-65S65:00:00.000Z 5831-35-15O25:00:41.000Z BP Sitting (Pre-Dialysis) 176/98 mmHg BP Sitting (Post-Dialysis) 151/61 mmHg Concurrent Access: falseAV Fistula Upper Arm (Left) Arterial Sitting Heart Rate Pre-Dialysis 87 BPM Sitting H eart Rate Post-Dialysis 85 BPM Temperature Pre-Dialysis 97.9 degF Temperature Post -Dialysis 97.8 degF December 23, 2023 In-Center Hemodialysis Treatment 9734-59-89U57:05:59.000Z 0377-23-49N13:05:34.000Z BP Sitting (Pre-Dialysis) 150/93 mmHg BP Sitting (Post-Dialysis) 140/74 mmHg Concurrent Access: falseAV Fistula Upper Arm (Left) Arterial Sitting Heart Rate Pre-Dialysis 87 BPM Sitting H eart Rate Post-Dialysis 87 BPM Temperature Pre-Dialysis 98.2 degF Temperature Post -Dialysis 97 degF December 21, 2023 In-Center Hemodialysis Treatment 5781-00-55T56:45:25.000Z 7223-30-11Z45:46:40.000Z BP Sitting (Pre-Dialysis) 158/79 mmHg BP Sitting (Post-Dialysis) 141/68 mmHg Concurrent Access: falseAV Fistula Upper Arm (Left) Arterial Sitting Heart Rate Pre-Dialysis 100 BPM Sitting H eart Rate Post-Dialysis 75 BPM Temperature Pre-Dialysis 97.6 degF Temperature Post -Dialysis 96.7 degF December 19, 2023 In-Center Hemodialysis Treatment 7319-19-61C44:03:00.000Z 8555-70-14E02:03:08.000Z BP Sitting (Pre-Dialysis) 184/96 mmHg BP Sitting (Post-Dialysis) 154/83 mmHg Concurrent Access: falseAV Fistula Upper Arm (Left) Arterial Sitting Heart Rate Pre-Dialysis 103 BPM Sitting H eart Rate Post-Dialysis 81 BPM Temperature Pre-Dialysis 97.2 degF Temperature Post -Dialysis 97.2 degF December 16, 2023 In-Center Hemodialysis Treatment 9739-45-50Z80:00:00.000Z 8320-87-55Z87:00:10.000Z BP Sitting (Pre-Dialysis) 153/83 mmHg BP Sitting (Post-Dialysis) 159/63 mmHg Concurrent Access: falseAV Fistula Upper Arm (Left) Arterial Sitting Heart Rate Pre-Dialysis 97 BPM Sitting H eart Rate Post-Dialysis 52 BPM Temperature Pre-Dialysis 97.9 degF Temperature Post -Dialysis 97.3 degF December 14, 2023 In-Center Hemodialysis Treatment 2919-94-43V95:02:08.000Z 4347-38-58T95:01:43.000Z BP Sitting (Pre-Dialysis) 126/79 mmHg BP Sitting (Post-Dialysis) 153/127 mmHg Concurrent Access: falseAV Fistula Upper Arm (Left) Arterial Sitting Heart Rate Pre-Dialysis 98 BPM Sitting H eart Rate Post-Dialysis 78 BPM Temperature Pre-Dialysis 97.6 degF Temperature Post -Dialysis 97.9 degF December 12, 2023 In-Center Hemodialysis Treatment 4604-50-33P67:22:00.000Z 0433-24-79Q99:30:58.000Z BP Sitting (Pre-Dialysis) 155/79 mmHg BP Sitting (Post-Dialysis) 156/49 mmHg Concurrent Access: falseAV Fistula Upper Arm (Left) Arterial Sitting Heart Rate Pre-Dialysis 90 BPM Sitting H eart Rate Post-Dialysis 77 BPM Temperature Pre-Dialysis 97.9 degF Temperature Post -Dialysis 97.7 degF December 09, 2023 In-Center Hemodialysis Treatment 3326-85-63D88:23:22.000Z 7209-75-17U44:27:07.000Z BP Sitting (Pre-Dialysis) 135/45 mmHg BP Sitting (Post-Dialysis) 143/77 mmHg Concurrent Access: falseAV Fistula Upper Arm (Left) Arterial Sitting Heart Rate Pre-Dialysis 78 BPM Sitting H eart Rate Post-Dialysis 81 BPM Temperature Pre-Dialysis 98.1 degF Temperature Post -Dialysis 97.5 degF December 07, 2023 In-Center Hemodialysis Treatment 5609-08-99Q44:25:00.000Z 5127-43-53Z62:30:19.000Z BP Sitting (Pre-Dialysis) 149/57 mmHg BP Sitting (Post-Dialysis) 156/65 mmHg Concurrent Access: falseAV Fistula Upper Arm (Left) Arterial Sitting Heart Rate Pre-Dialysis 73 BPM Sitting H eart Rate Post-Dialysis 67 BPM Temperature Pre-Dialysis 97.2 degF Temperature Post -Dialysis 97.9 degF December 05, 2023 In-Center Hemodialysis Treatment 7075-16-98G73:24:15.000Z 2078-52-33E34:25:30.000Z BP Sitting (Pre-Dialysis) 171/74 mmHg BP Sitting (Post-Dialysis) 148/74 mmHg Concurrent Access: falseAV Fistula Upper Arm (Left) Arterial Sitting Heart Rate Pre-Dialysis 96 BPM Sitting H eart Rate Post-Dialysis 77 BPM Temperature Pre-Dialysis 97.3 degF Temperature Post -Dialysis 97.2 degF December 02, 2023 In-Center Hemodialysis Treatment 8352-21-86D99:55:27.000Z 6207-04-31L38:55:02.000Z BP Sitting (Pre-Dialysis) 147/89 mmHg BP Sitting (Post-Dialysis) 165/67 mmHg Concurrent Access: falseAV Fistula Upper Arm (Left) Arterial Sitting Heart Rate Pre-Dialysis 81 BPM Sitting H eart Rate Post-Dialysis 67 BPM Temperature Pre-Dialysis 97.5 degF Temperature Post -Dialysis 97.2 degF November 30, 2023 In-Center Hemodialysis Treatment 0882-11-53O93:10:00.000Z 6660-07-89M67:10:51.000Z BP Sitting (Pre-Dialysis) 181/79 mmHg BP Sitting (Post-Dialysis) 135/92 mmHg Concurrent Access: falseAV Fistula Upper Arm (Left) Arterial Sitting Heart Rate Pre-Dialysis 81 BPM Sitting H eart Rate Post-Dialysis 78 BPM Temperature Pre-Dialysis 97.7 degF Temperature Post -Dialysis 97.1 degF November 28, 2023 In-Center Hemodialysis Treatment 8013-24-18O20:56:00.000Z 3049-59-90T94:55:10.000Z BP Sitting (Pre-Dialysis) 155/64 mmHg BP Sitting (Post-Dialysis) 118/50 mmHg Concurrent Access: falseAV Fistula Upper Arm (Left) Arterial Sitting Heart Rate Pre-Dialysis 86 BPM Sitting H eart Rate Post-Dialysis 69 BPM Temperature Pre-Dialysis 98 degF Temperature Post -Dialysis 98.2 degF November 25, 2023 In-Center Hemodialysis Treatment 2006-05-34O29:01:27.000Z 9901-94-91D05:12:17.000Z BP Sitting (Pre-Dialysis) 140/69 mmHg BP Sitting (Post-Dialysis) 96/56 mmHg Concurrent Access: falseAV Fistula Upper Arm (Left) Arterial Sitting Heart Rate Pre-Dialysis 81 BPM Sitting H eart Rate Post-Dialysis 61 BPM Temperature Pre-Dialysis 97 degF Temperature Post -Dialysis 97 degF November 23, 2023 In-Center Hemodialysis Treatment 2081-82-18Z30:02:38.000Z 1747-86-25V58:58:03.000Z BP Sitting (Pre-Dialysis) 118/87 mmHg BP Sitting (Post-Dialysis) 100/55 mmHg Concurrent Access: falseAV Fistula Upper Arm (Left) Arterial Sitting Heart Rate Pre-Dialysis 70 BPM Sitting H eart Rate Post-Dialysis 64 BPM Temperature Pre-Dialysis 98.2 degF Temperature Post -Dialysis 96.7 degF November 21, 2023 In-Center Hemodialysis Treatment 6991-73-32T33:32:00.000Z 4958-83-30A17:33:31.000Z BP Sitting (Pre-Dialysis) 176/76 mmHg BP Sitting (Post-Dialysis) 130/68 mmHg Concurrent Access: falseAV Fistula Upper Arm (Left) Arterial Sitting Heart Rate Pre-Dialysis 102 BPM Sitting H eart Rate Post-Dialysis 68 BPM Temperature Pre-Dialysis 98.1 degF Temperature Post -Dialysis 97.1 degF November 18, 2023 In-Center Hemodialysis Treatment 2640-05-90R23:45:00.000Z 9352-56-81Y32:08:21.000Z BP Sitting (Pre-Dialysis) 124/59 mmHg BP Sitting (Post-Dialysis) 118/77 mmHg Concurrent Access: falseAV Fistula Upper Arm (Left) Arterial Sitting Heart Rate Pre-Dialysis 111 BPM Sitting H eart Rate Post-Dialysis 78 BPM Temperature Pre-Dialysis 97.8 degF Temperature Post -Dialysis 97.2 degF November 16, 2023 In-Center Hemodialysis Treatment 3889-60-34T44:40:00.000Z 1625-40-12Y12:42:11.000Z BP Sitting (Pre-Dialysis) 153/71 mmHg BP Sitting (Post-Dialysis) 117/54 mmHg Concurrent Access: falseAV Fistula Upper Arm (Left) Arterial Sitting Heart Rate Pre-Dialysis 114 BPM Sitting H eart Rate Post-Dialysis 87 BPM Temperature Pre-Dialysis 98.4 degF Temperature Post -Dialysis 97.5 degF November 04, 2023 In-Center Hemodialysis Treatment 8357-54-94S37:54:00.000Z 3527-66-65A64:58:10.000Z BP Sitting (Pre-Dialysis) 148/73 mmHg BP Sitting (Post-Dialysis) 111/63 mmHg Concurrent Access: falseAV Fistula Upper Arm (Left) Arterial Sitting Heart Rate Pre-Dialysis 102 BPM Sitting H eart Rate Post-Dialysis 75 BPM Temperature Pre-Dialysis 98.8 degF Temperature Post -Dialysis 98.6 degF November 02, 2023 In-Center Hemodialysis Treatment 7042-45-60J44:50:00.000Z 0301-83-48D70:01:52.000Z BP Sitting (Pre-Dialysis) 137/79 mmHg BP Sitting (Post-Dialysis) 130/63 mmHg Concurrent Access: falseAV Fistula Upper Arm (Left) Arterial Sitting Heart Rate Pre-Dialysis 95 BPM Sitting H eart Rate Post-Dialysis 77 BPM Temperature Pre-Dialysis 97.7 degF Temperature Post -Dialysis 98 degF October 31, 2023 In-Center Hemodialysis Treatment 9900-89-55W59:56:00.000Z 0863-76-34N60:00:16.000Z BP Sitting (Pre-Dialysis) 189/81 mmHg BP Sitting (Post-Dialysis) 174/82 mmHg Concurrent Access: falseAV Fistula Upper Arm (Left) Arterial Sitting Heart Rate Pre-Dialysis 87 BPM Sitting H eart Rate Post-Dialysis 76 BPM Temperature Pre-Dialysis 97.8 degF Temperature Post -Dialysis 98.6 degF October 28, 2023 In-Center Hemodialysis Treatment 7618-18-15E51:07:26.000Z 1419-00-70D75:07:26.000Z BP Sitting (Pre-Dialysis) 192/82 mmHg BP Sitting (Post-Dialysis) 155/50 mmHg Concurrent Access: falseAV Fistula Upper Arm (Left) Arterial Sitting Heart Rate Pre-Dialysis 90 BPM Sitting H eart Rate Post-Dialysis 65 BPM Temperature Pre-Dialysis 97.6 degF Temperature Post -Dialysis 98.6 degF October 26, 2023 In-Center Hemodialysis Treatment 3022-96-09E55:08:00.000Z 0508-46-43X83:11:29.000Z BP Sitting (Pre-Dialysis) 153/68 mmHg BP Sitting (Post-Dialysis) 149/63 mmHg Concurrent Access: falseAV Fistula Upper Arm (Left) Arterial Sitting Heart Rate Pre-Dialysis 88 BPM Sitting H eart Rate Post-Dialysis 63 BPM Temperature Pre-Dialysis 98.8 degF Temperature Post -Dialysis 97.1 degF October 24, 2023 In-Center Hemodialysis Treatment 9783-95-64R40:51:00.000Z 3798-53-00K78:54:50.000Z BP Sitting (Pre-Dialysis) 204/90 mmHg BP Sitting (Post-Dialysis) 166/72 mmHg Concurrent Access: falseAV Fistula Upper Arm (Left) Arterial Sitting Heart Rate Pre-Dialysis 86 BPM Sitting H eart Rate Post-Dialysis 66 BPM Temperature Pre-Dialysis 97.2 degF Temperature Post -Dialysis 96.9 degF October 21, 2023 In-Center Hemodialysis Treatment 4840-81-07W86:15:00.000Z 1803-67-18V48:14:16.000Z BP Sitting (Pre-Dialysis) 101/53 mmHg BP Sitting (Post-Dialysis) 212/93 mmHg Concurrent Access: falseAV Fistula Upper Arm (Left) Arterial Sitting Heart Rate Pre-Dialysis 68 BPM Sitting H eart Rate Post-Dialysis 69 BPM Temperature Pre-Dialysis 97.7 degF Temperature Post -Dialysis 98.1 degF October 19, 2023 In-Center Hemodialysis Treatment 9770-17-77O04:45:00.000Z 8411-89-68G57:44:35.000Z BP Sitting (Pre-Dialysis) 171/79 mmHg BP Sitting (Post-Dialysis) 151/71 mmHg Concurrent Access: falseAV Fistula Upper Arm (Left) Arterial Sitting Heart Rate Pre-Dialysis 76 BPM Sitting H eart Rate Post-Dialysis 66 BPM Temperature Pre-Dialysis 98.6 degF Temperature Post -Dialysis 97.2 degF October 17, 2023 In-Center Hemodialysis Treatment 2267-61-49I91:16:50.000Z 9003-09-62N16:18:05.000Z BP Sitting (Pre-Dialysis) 196/64 mmHg BP Sitting (Post-Dialysis) 166/64 mmHg Concurrent Access: falseAV Fistula Upper Arm (Left) Arterial Sitting Heart Rate Pre-Dialysis 83 BPM Sitting H eart Rate Post-Dialysis 70 BPM Temperature Pre-Dialysis 98.2 degF Temperature Post -Dialysis 98.4 degF October 07, 2023 In-Center Hemodialysis Treatment 1074-07-42P00:01:21.000Z 8375-64-78T74:05:06.000Z BP Sitting (Pre-Dialysis) 198/81 mmHg BP Sitting (Post-Dialysis) 186/73 mmHg Concurrent Access: falseAV Fistula Upper Arm (Left) Arterial Sitting Heart Rate Pre-Dialysis 83 BPM Sitting H eart Rate Post-Dialysis 60 BPM Temperature Pre-Dialysis 98.4 degF Temperature Post -Dialysis 97.6 degF October 03, 2023 In-Center Hemodialysis Treatment 4543-37-91H93:48:59.000Z 0844-74-34T50:48:59.000Z BP Sitting (Pre-Dialysis) 198/118 mmHg BP Sitting (Post-Dialysis) 182/67 mmHg Concurrent Access: falseAV Fistula Upper Arm (Left) Arterial Sitting Heart Rate Pre-Dialysis 82 BPM Sitting H eart Rate Post-Dialysis 63 BPM Temperature Pre-Dialysis 98 degF Temperature Post -Dialysis 97.3 degF September 28, 2023 In-Center Hemodialysis Treatment 5159-50-33F09:02:28.000Z 5076-58-05O97:05:48.000Z BP Sitting (Pre-Dialysis) 195/67 mmHg BP Sitting (Post-Dialysis) 166/57 mmHg Concurrent Access: falseAV Fistula Upper Arm (Left) Arterial Sitting Heart Rate Pre-Dialysis 80 BPM Sitting H eart Rate Post-Dialysis 69 BPM Temperature Pre-Dialysis 97.3 degF Temperature Post -Dialysis 98.2 degF September 26, 2023 In-Center Hemodialysis Treatment 5994-33-52F71:08:00.000Z 6723-62-04V77:09:32.000Z BP Sitting (Pre-Dialysis) 137/77 mmHg BP Sitting (Post-Dialysis) 166/68 mmHg Concurrent Access: falseAV Fistula Upper Arm (Left) Arterial Sitting Heart Rate Pre-Dialysis 68 BPM Sitting H eart Rate Post-Dialysis 60 BPM Temperature Pre-Dialysis 98.1 degF Temperature Post -Dialysis 97.8 degF September 23, 2023 In-Center Hemodialysis Treatment 7780-18-49Y58:21:54.000Z 3233-93-53R68:21:29.000Z BP Sitting (Pre-Dialysis) 166/96 mmHg BP Sitting (Post-Dialysis) 170/75 mmHg Concurrent Access: falseAV Fistula Upper Arm (Left) Arterial Sitting Heart Rate Pre-Dialysis 80 BPM Sitting H eart Rate Post-Dialysis 62 BPM Temperature Pre-Dialysis 98.2 degF Temperature Post -Dialysis 98.2 degF September 21, 2023 In-Center Hemodialysis Treatment 7061-71-80S46:37:08.000Z 9533-40-51T60:37:33.000Z BP Sitting (Pre-Dialysis) 197/84 mmHg BP Sitting (Post-Dialysis) 164/85 mmHg Concurrent Access: falseAV Fistula Upper Arm (Left) Arterial Sitting Heart Rate Pre-Dialysis 71 BPM Sitting H eart Rate Post-Dialysis 61 BPM Temperature Pre-Dialysis 97.3 degF Temperature Post -Dialysis 97.3 degF September 19, 2023 In-Center Hemodialysis Treatment 2487-94-80Y66:31:20.000Z 1507-74-56G49:31:00.000Z BP Sitting (Pre-Dialysis) 219/80 mmHg BP Sitting (Post-Dialysis) 172/76 mmHg Concurrent Access: falseAV Fistula Upper Arm (Left) Arterial Sitting Heart Rate Pre-Dialysis 84 BPM Sitting H eart Rate Post-Dialysis 63 BPM Temperature Pre-Dialysis 98.2 degF Temperature Post -Dialysis 97.2 degF September 16, 2023 In-Center Hemodialysis Treatment 7204-91-37B76:30:43.000Z 0260-78-41V87:41:33.000Z BP Sitting (Pre-Dialysis) 199/73 mmHg BP Sitting (Post-Dialysis) 170/61 mmHg Concurrent Access: falseAV Fistula Upper Arm (Left) Arterial Sitting Heart Rate Pre-Dialysis 66 BPM Sitting H eart Rate Post-Dialysis 61 BPM Temperature Pre-Dialysis 97.8 degF Temperature Post -Dialysis 97.4 degF September 14, 2023 In-Center Hemodialysis Treatment 0459-96-12I77:47:12.000Z 7363-13-49H57:47:12.000Z BP Sitting (Pre-Dialysis) 182/62 mmHg BP Sitting (Post-Dialysis) 187/92 mmHg Concurrent Access: falseAV Fistula Upper Arm (Left) Arterial Sitting Heart Rate Pre-Dialysis 61 BPM Sitting H eart Rate Post-Dialysis 61 BPM Temperature Pre-Dialysis 97.8 degF Temperature Post -Dialysis 98 degF September 12, 2023 In-Center Hemodialysis Treatment 6688-78-59V70:43:11.000Z 4672-80-39C93:44:51.000Z BP Sitting (Pre-Dialysis) 215/75 mmHg BP Sitting (Post-Dialysis) 172/56 mmHg Concurrent Access: falseAV Fistula Upper Arm (Left) Arterial Sitting Heart Rate Pre-Dialysis 78 BPM Sitting H eart Rate Post-Dialysis 61 BPM Temperature Pre-Dialysis 98.2 degF Temperature Post -Dialysis 98.1 degF September 09, 2023 In-Center Hemodialysis Treatment 3309-12-01U65:41:00.000Z 6334-51-60F02:06:41.000Z BP Sitting (Pre-Dialysis) 211/94 mmHg BP Sitting (Post-Dialysis) 166/69 mmHg Concurrent Access: falseAV Fistula Upper Arm (Left) Arterial Sitting Heart Rate Pre-Dialysis 74 BPM Sitting H eart Rate Post-Dialysis 58 BPM Temperature Pre-Dialysis 97.2 degF Temperature Post -Dialysis 97.3 degF September 07, 2023 In-Center Hemodialysis Treatment 7812-09-41A05:43:40.000Z 8040-86-93V46:44:05.000Z BP Sitting (Pre-Dialysis) 191/88 mmHg BP Sitting (Post-Dialysis) 161/85 mmHg Concurrent Access: falseAV Fistula Upper Arm (Left) Arterial Sitting Heart Rate Pre-Dialysis 70 BPM Sitting H eart Rate Post-Dialysis 62 BPM Temperature Pre-Dialysis 97.9 degF Temperature Post -Dialysis 98 degF September 05, 2023 In-Center Hemodialysis Treatment 1694-74-69S26:51:22.000Z 7998-99-74J41:51:47.000Z BP Sitting (Pre-Dialysis) 200/87 mmHg BP Sitting (Post-Dialysis) 181/82 mmHg Concurrent Access: falseAV Fistula Upper Arm (Left) Arterial Sitting Heart Rate Pre-Dialysis 77 BPM Sitting H eart Rate Post-Dialysis 62 BPM Temperature Pre-Dialysis 97.8 degF September 02, 2023 In-Center Hemodialysis Treatment 8061-79-86J12:53:00.000Z 5661-09-18Q61:03:24.000Z BP Sitting (Pre-Dialysis) 207/58 mmHg BP Sitting (Post-Dialysis) 161/92 mmHg Concurrent Access: falseAV Fistula Upper Arm (Left) Arterial Sitting Heart Rate Pre-Dialysis 83 BPM Sitting H eart Rate Post-Dialysis 59 BPM Temperature Pre-Dialysis 98.2 degF Temperature Post -Dialysis 97.8 degF August 31, 2023 In-Center Hemodialysis Treatment 8911-31-83D18:26:00.000Z 4315-46-89C70:27:08.000Z BP Sitting (Pre-Dialysis) 187/80 mmHg BP Sitting (Post-Dialysis) 168/57 mmHg Concurrent Access: falseAV Fistula Upper Arm (Left) Arterial Sitting Heart Rate Pre-Dialysis 79 BPM Sitting H eart Rate Post-Dialysis 60 BPM Temperature Pre-Dialysis 97.6 degF Temperature Post -Dialysis 97.3 degF August 29, 2023 In-Center Hemodialysis Treatment 0890-40-86D12:43:00.000Z 0371-61-33H14:45:31.000Z BP Sitting (Pre-Dialysis) 150/97 mmHg BP Sitting (Post-Dialysis) 162/74 mmHg Concurrent Access: falseAV Fistula Upper Arm (Left) Arterial Sitting Heart Rate Pre-Dialysis 85 BPM Sitting H eart Rate Post-Dialysis 63 BPM Temperature Pre-Dialysis 97.6 degF Temperature Post -Dialysis 97.6 degF August 26, 2023 In-Center Hemodialysis Treatment 5178-08-97E92:23:42.000Z 0593-52-08E19:24:07.000Z BP Sitting (Pre-Dialysis) 206/81 mmHg BP Sitting (Post-Dialysis) 179/65 mmHg Concurrent Access: falseAV Fistula Upper Arm (Left) Arterial Sitting Heart Rate Pre-Dialysis 75 BPM Sitting H eart Rate Post-Dialysis 64 BPM Temperature Pre-Dialysis 98.5 degF Temperature Post -Dialysis 97.3 degF August 24, 2023 In-Center Hemodialysis Treatment 3860-13-40S67:36:40.000Z 8090-32-97M50:37:30.000Z BP Sitting (Pre-Dialysis) 202/84 mmHg BP Sitting (Post-Dialysis) 169/73 mmHg Concurrent Access: falseAV Fistula Upper Arm (Left) Arterial Sitting Heart Rate Pre-Dialysis 82 BPM Sitting H eart Rate Post-Dialysis 60 BPM Temperature Pre-Dialysis 97.4 degF Temperature Post -Dialysis 97.6 degF August 19, 2023 In-Center Hemodialysis Treatment 1403-86-99S22:27:48.000Z 2745-79-74K23:27:48.000Z BP Sitting (Pre-Dialysis) 171/102 mmHg BP Sitting (Post-Dialysis) 173/86 mmHg Concurrent Access: falseAV Fistula Upper Arm (Left) Arterial Sitting Heart Rate Pre-Dialysis 81 BPM Sitting H eart Rate Post-Dialysis 58 BPM Temperature Pre-Dialysis 98.2 degF Temperature Post -Dialysis 97.3 degF August 17, 2023 In-Center Hemodialysis Treatment 5359-13-52R87:51:00.000Z 1192-54-68Q62:56:26.000Z BP Sitting (Pre-Dialysis) 209/99 mmHg BP Sitting (Post-Dialysis) 165/73 mmHg Concurrent Access: falseAV Fistula Upper Arm (Left) Arterial Sitting Heart Rate Pre-Dialysis 81 BPM Sitting H eart Rate Post-Dialysis 62 BPM Temperature Pre-Dialysis 97.6 degF Temperature Post -Dialysis 97.6 degF August 15, 2023 In-Center Hemodialysis Treatment 6551-52-08Q20:32:00.000Z 7116-28-72D55:46:50.000Z BP Sitting (Pre-Dialysis) 190/69 mmHg BP Sitting (Post-Dialysis) 157/65 mmHg Concurrent Access: falseAV Fistula Upper Arm (Left) Arterial Sitting Heart Rate Pre-Dialysis 72 BPM Sitting H eart Rate Post-Dialysis 66 BPM Temperature Pre-Dialysis 97.7 degF Temperature Post -Dialysis 98.6 degF August 12, 2023 In-Center Hemodialysis Treatment 6883-95-68V73:42:00.000Z 0924-21-72V66:45:25.000Z BP Sitting (Pre-Dialysis) 162/83 mmHg BP Sitting (Post-Dialysis) 147/69 mmHg Concurrent Access: falseAV Fistula Upper Arm (Left) Arterial Sitting Heart Rate Pre-Dialysis 81 BPM Sitting H eart Rate Post-Dialysis 51 BPM Temperature Pre-Dialysis 98.1 degF Temperature Post -Dialysis 97.4 degF August 10, 2023 In-Center Hemodialysis Treatment 1664-30-29V65:51:00.000Z 9912-51-14M69:05:16.000Z BP Sitting (Pre-Dialysis) 207/93 mmHg BP Sitting (Post-Dialysis) 158/80 mmHg Concurrent Access: falseAV Fistula Upper Arm (Left) Arterial Sitting Heart Rate Pre-Dialysis 80 BPM Sitting H eart Rate Post-Dialysis 62 BPM Temperature Pre-Dialysis 97.7 degF Temperature Post -Dialysis 97.5 degF August 08, 2023 In-Center Hemodialysis Treatment 8711-97-00U69:44:00.000Z 6802-73-14F23:44:51.000Z BP Sitting (Pre-Dialysis) 103/68 mmHg BP Sitting (Post-Dialysis) 176/71 mmHg Concurrent Access: falseAV Fistula Upper Arm (Left) Arterial Sitting Heart Rate Pre-Dialysis 81 BPM Sitting H eart Rate Post-Dialysis 60 BPM Temperature Pre-Dialysis 97.9 degF Temperature Post -Dialysis 97.4 degF August 05, 2023 In-Center Hemodialysis Treatment 1202-36-44J73:29:03.000Z 0732-95-11V56:31:23.000Z BP Sitting (Pre-Dialysis) 186/79 mmHg BP Sitting (Post-Dialysis) 185/75 mmHg Concurrent Access: falseAV Fistula Upper Arm (Left) Arterial Sitting Heart Rate Pre-Dialysis 79 BPM Sitting H eart Rate Post-Dialysis 60 BPM Temperature Pre-Dialysis 98.2 degF Temperature Post -Dialysis 97.9 degF August 03, 2023 In-Center Hemodialysis Treatment 9123-12-98X18:55:00.000Z 6216-92-54H27:58:27.000Z BP Sitting (Pre-Dialysis) 172/72 mmHg BP Sitting (Post-Dialysis) 182/67 mmHg Concurrent Access: falseAV Fistula Upper Arm (Left) Arterial Sitting Heart Rate Pre-Dialysis 66 BPM Sitting H eart Rate Post-Dialysis 62 BPM Temperature Pre-Dialysis 97.2 degF Temperature Post -Dialysis 97.4 degF August 01, 2023 In-Center Hemodialysis Treatment 6211-57-90L16:41:00.000Z 1042-65-85O22:41:58.000Z BP Sitting (Pre-Dialysis) 189/78 mmHg BP Sitting (Post-Dialysis) 172/80 mmHg Concurrent Access: falseAV Fistula Upper Arm (Left) Arterial Sitting Heart Rate Pre-Dialysis 71 BPM Sitting H eart Rate Post-Dialysis 60 BPM Temperature Pre-Dialysis 97.6 degF Temperature Post -Dialysis 97 degF July 29, 2023 In-Center Hemodialysis Treatment 5771-93-34E51:54:00.000Z 6759-41-46J28:01:51.000Z BP Sitting (Pre-Dialysis) 183/73 mmHg BP Sitting (Post-Dialysis) 162/69 mmHg Concurrent Access: falseAV Fistula Upper Arm (Left) Arterial Sitting Heart Rate Pre-Dialysis 75 BPM Sitting H eart Rate Post-Dialysis 57 BPM Temperature Pre-Dialysis 97.6 degF Temperature Post -Dialysis 98.1 degF July 27, 2023 In-Center Hemodialysis Treatment 0847-28-32U04:42:48.000Z 2026-51-12L98:43:38.000Z BP Sitting (Pre-Dialysis) 163/71 mmHg BP Sitting (Post-Dialysis) 155/43 mmHg Concurrent Access: falseAV Fistula Upper Arm (Left) Arterial Sitting Heart Rate Pre-Dialysis 73 BPM Sitting H eart Rate Post-Dialysis 60 BPM Temperature Pre-Dialysis 97.7 degF Temperature Post -Dialysis 98.6 degF July 25, 2023 In-Center Hemodialysis Treatment 4882-78-01I97:39:00.000Z 7642-60-83G86:42:18.000Z BP Sitting (Pre-Dialysis) 191/63 mmHg BP Sitting (Post-Dialysis) 116/84 mmHg Concurrent Access: falseAV Fistula Upper Arm (Left) Arterial Sitting Heart Rate Pre-Dialysis 75 BPM Sitting H eart Rate Post-Dialysis 65 BPM Temperature Pre-Dialysis 97.8 degF Temperature Post -Dialysis 97.5 degF July 22, 2023 In-Center Hemodialysis Treatment 8949-47-13M78:24:00.000Z 2666-58-81Y90:25:09.000Z BP Sitting (Pre-Dialysis) 128/54 mmHg BP Sitting (Post-Dialysis) 180/75 mmHg Concurrent Access: falseAV Fistula Upper Arm (Left) Arterial Sitting Heart Rate Pre-Dialysis 76 BPM Sitting H eart Rate Post-Dialysis 59 BPM Temperature Pre-Dialysis 98.4 degF Temperature Post -Dialysis 97.6 degF July 20, 2023 In-Center Hemodialysis Treatment 7771-21-36R90:42:00.000Z 3431-25-62C83:45:48.000Z BP Sitting (Pre-Dialysis) 191/82 mmHg BP Sitting (Post-Dialysis) 166/84 mmHg Concurrent Access: falseAV Fistula Upper Arm (Left) Arterial Sitting Heart Rate Pre-Dialysis 73 BPM Sitting H eart Rate Post-Dialysis 62 BPM Temperature Pre-Dialysis 98.1 degF Temperature Post -Dialysis 98 degF July 15, 2023 In-Center Hemodialysis Treatment 9045-33-70Y10:18:00.000Z 9040-03-68G57:22:51.000Z BP Sitting (Pre-Dialysis) 198/77 mmHg BP Sitting (Post-Dialysis) 166/67 mmHg Concurrent Access: falseAV Fistula Upper Arm (Left) Arterial Sitting Heart Rate Pre-Dialysis 74 BPM Sitting H eart Rate Post-Dialysis 57 BPM Temperature Pre-Dialysis 97.2 degF Temperature Post -Dialysis 98 degF July 13, 2023 In-Center Hemodialysis Treatment 6146-87-96Q89:36:44.000Z 0281-72-04J34:39:39.000Z BP Sitting (Pre-Dialysis) 179/65 mmHg BP Sitting (Post-Dialysis) 159/66 mmHg Concurrent Access: falseAV Fistula Upper Arm (Left) Arterial Sitting Heart Rate Pre-Dialysis 68 BPM Sitting H eart Rate Post-Dialysis 63 BPM Temperature Pre-Dialysis 97.2 degF Temperature Post -Dialysis 97.3 degF July 11, 2023 In-Center Hemodialysis Treatment 8916-58-63G45:13:00.000Z 8458-79-34N24:16:07.000Z BP Sitting (Pre-Dialysis) 183/67 mmHg BP Sitting (Post-Dialysis) 164/69 mmHg Concurrent Access: falseAV Fistula Upper Arm (Left) Arterial Sitting Heart Rate Pre-Dialysis 77 BPM Sitting H eart Rate Post-Dialysis 64 BPM Temperature Pre-Dialysis 97.6 degF Temperature Post -Dialysis 97.3 degF July 08, 2023 In-Center Hemodialysis Treatment 4912-70-69M30:05:05.000Z 0905-24-72I90:05:55.000Z BP Sitting (Pre-Dialysis) 184/60 mmHg BP Sitting (Post-Dialysis) 159/61 mmHg Concurrent Access: falseAV Fistula Upper Arm (Left) Arterial Sitting Heart Rate Pre-Dialysis 77 BPM Sitting H eart Rate Post-Dialysis 63 BPM Temperature Pre-Dialysis 97 degF Temperature Post -Dialysis 97.7 degF July 06, 2023 In-Center Hemodialysis Treatment 3651-85-49C33:30:09.000Z 1914-68-18W32:29:19.000Z BP Sitting (Pre-Dialysis) 186/77 mmHg BP Sitting (Post-Dialysis) 152/79 mmHg Concurrent Access: falseAV Fistula Upper Arm (Left) Arterial Sitting Heart Rate Pre-Dialysis 68 BPM Sitting H eart Rate Post-Dialysis 58 BPM Temperature Pre-Dialysis 98 degF Temperature Post -Dialysis 97.2 degF July 04, 2023 In-Center Hemodialysis Treatment 0330-96-46T69:45:00.000Z 5018-65-49G32:43:44.000Z BP Sitting (Pre-Dialysis) 189/85 mmHg BP Sitting (Post-Dialysis) 172/75 mmHg Concurrent Access: falseAV Fistula Upper Arm (Left) Arterial Sitting Heart Rate Pre-Dialysis 76 BPM Sitting H eart Rate Post-Dialysis 63 BPM Temperature Pre-Dialysis 97.5 degF Temperature Post -Dialysis 97.6 degF July 01, 2023 In-Center Hemodialysis Treatment 7648-39-66D79:27:01.000Z 2805-32-64L69:27:26.000Z BP Sitting (Pre-Dialysis) 182/75 mmHg BP Sitting (Post-Dialysis) 175/67 mmHg Concurrent Access: falseAV Fistula Upper Arm (Left) Arterial Sitting Heart Rate Pre-Dialysis 69 BPM Sitting H eart Rate Post-Dialysis 60 BPM Temperature Pre-Dialysis 97.6 degF Temperature Post -Dialysis 97.3 degF June 29, 2023 In-Center Hemodialysis Treatment 6245-71-14N15:08:15.000Z 5032-89-58R99:09:30.000Z BP Sitting (Pre-Dialysis) 187/87 mmHg BP Sitting (Post-Dialysis) 149/69 mmHg Concurrent Access: falseAV Fistula Upper Arm (Left) Arterial Sitting Heart Rate Pre-Dialysis 77 BPM Sitting H eart Rate Post-Dialysis 63 BPM Temperature Pre-Dialysis 97 degF Temperature Post -Dialysis 96.6 degF June 27, 2023 In-Center Hemodialysis Treatment 8051-64-82N71:46:47.000Z 7469-56-70K05:46:47.000Z BP Sitting (Pre-Dialysis) 191/94 mmHg BP Sitting (Post-Dialysis) 164/76 mmHg Concurrent Access: falseAV Fistula Upper Arm (Left) Arterial Sitting Heart Rate Pre-Dialysis 79 BPM Sitting H eart Rate Post-Dialysis 65 BPM Temperature Pre-Dialysis 98 degF Temperature Post -Dialysis 97.5 degF June 24, 2023 In-Center Hemodialysis Treatment 7027-80-25L31:26:22.000Z 2077-82-28C42:27:12.000Z BP Sitting (Pre-Dialysis) 185/83 mmHg BP Sitting (Post-Dialysis) 152/56 mmHg Concurrent Access: falseAV Fistula Upper Arm (Left) Arterial Sitting Heart Rate Pre-Dialysis 73 BPM Sitting H eart Rate Post-Dialysis 62 BPM Temperature Pre-Dialysis 98.2 degF Temperature Post -Dialysis 97.2 degF June 22, 2023 In-Center Hemodialysis Treatment 4134-45-17P06:25:00.000Z 7853-71-03P52:28:20.000Z BP Sitting (Pre-Dialysis) 176/80 mmHg BP Sitting (Post-Dialysis) 165/88 mmHg Concurrent Access: falseAV Fistula Upper Arm (Left) Arterial Sitting Heart Rate Pre-Dialysis 70 BPM Sitting H eart Rate Post-Dialysis 61 BPM Temperature Pre-Dialysis 97.9 degF Temperature Post -Dialysis 97.3 degF June 20, 2023 In-Center Hemodialysis Treatment 4704-76-79M21:46:00.000Z 7335-63-68G38:49:18.000Z BP Sitting (Pre-Dialysis) 193/82 mmHg BP Sitting (Post-Dialysis) 185/80 mmHg Concurrent Access: falseAV Fistula Upper Arm (Left) Arterial Sitting Heart Rate Pre-Dialysis 68 BPM Sitting H eart Rate Post-Dialysis 63 BPM Temperature Pre-Dialysis 97.7 degF Temperature Post -Dialysis 97.7 degF June 17, 2023 In-Center Hemodialysis Treatment 1517-42-51T88:31:27.000Z 2499-24-38K51:31:02.000Z BP Sitting (Pre-Dialysis) 198/83 mmHg BP Sitting (Post-Dialysis) 150/69 mmHg Concurrent Access: falseAV Fistula Upper Arm (Left) Arterial Sitting Heart Rate Pre-Dialysis 72 BPM Sitting H eart Rate Post-Dialysis 63 BPM Temperature Pre-Dialysis 97.3 degF June 15, 2023 In-Center Hemodialysis Treatment 9063-47-13B24:18:03.000Z 6504-02-57Q37:18:53.000Z BP Sitting (Pre-Dialysis) 158/96 mmHg BP Sitting (Post-Dialysis) 166/66 mmHg Concurrent Access: falseAV Fistula Upper Arm (Left) Arterial Sitting Heart Rate Pre-Dialysis 78 BPM Sitting H eart Rate Post-Dialysis 63 BPM Temperature Pre-Dialysis 97.1 degF Temperature Post -Dialysis 97.3 degF June 13, 2023 In-Center Hemodialysis Treatment 1917-07-78D46:22:00.000Z 6508-51-63G83:24:26.000Z BP Sitting (Pre-Dialysis) 198/70 mmHg BP Sitting (Post-Dialysis) 148/88 mmHg Concurrent Access: falseAV Fistula Upper Arm (Left) Arterial Sitting Heart Rate Pre-Dialysis 78 BPM Sitting H eart Rate Post-Dialysis 63 BPM Temperature Pre-Dialysis 98.1 degF Temperature Post -Dialysis 98 degF June 10, 2023 In-Center Hemodialysis Treatment 3859-42-92W55:29:00.000Z 6761-12-97W64:30:05.000Z BP Sitting (Pre-Dialysis) 198/81 mmHg BP Sitting (Post-Dialysis) 189/72 mmHg Concurrent Access: falseAV Fistula Upper Arm (Left) Arterial Sitting Heart Rate Pre-Dialysis 75 BPM Sitting H eart Rate Post-Dialysis 62 BPM Temperature Pre-Dialysis 98.1 degF Temperature Post -Dialysis 97.2 degF June 08, 2023 In-Center Hemodialysis Treatment 0381-02-94J11:22:47.000Z 7844-57-94N20:23:12.000Z BP Sitting (Pre-Dialysis) 145/119 mmHg BP Sitting (Post-Dialysis) 154/68 mmHg Concurrent Access: falseAV Fistula Upper Arm (Left) Arterial Sitting Heart Rate Pre-Dialysis 77 BPM Sitting H eart Rate Post-Dialysis 63 BPM Temperature Pre-Dialysis 98 degF Temperature Post -Dialysis 98 degF June 06, 2023 In-Center Hemodialysis Treatment 7413-18-82H90:22:07.000Z 7618-34-89E37:34:12.000Z BP Sitting (Pre-Dialysis) 180/52 mmHg BP Sitting (Post-Dialysis) 147/64 mmHg Concurrent Access: falseAV Fistula Upper Arm (Left) Arterial Sitting Heart Rate Pre-Dialysis 70 BPM Sitting H eart Rate Post-Dialysis 60 BPM Temperature Pre-Dialysis 98.3 degF Temperature Post -Dialysis 97.9 degF June 03, 2023 In-Center Hemodialysis Treatment 2034-58-10J06:23:00.000Z 1573-33-49V65:23:48.000Z BP Sitting (Pre-Dialysis) 180/67 mmHg BP Sitting (Post-Dialysis) 148/66 mmHg Concurrent Access: falseAV Fistula Upper Arm (Left) Arterial Sitting Heart Rate Pre-Dialysis 74 BPM Sitting H eart Rate Post-Dialysis 63 BPM Temperature Pre-Dialysis 98 degF Temperature Post -Dialysis 98.2 degF June 01, 2023 In-Center Hemodialysis Treatment 6609-85-06L85:18:49.000Z 4809-11-52I93:20:54.000Z BP Sitting (Pre-Dialysis) 198/81 mmHg BP Sitting (Post-Dialysis) 163/69 mmHg Concurrent Access: falseAV Fistula Upper Arm (Left) Arterial Sitting Heart Rate Pre-Dialysis 76 BPM Sitting H eart Rate Post-Dialysis 64 BPM Temperature Pre-Dialysis 98.7 degF Temperature Post -Dialysis 97.7 degF May 30, 2023 In-Center Hemodialysis Treatment 6460-47-61U86:29:45.000Z 4096-25-79Z47:29:45.000Z BP Sitting (Pre-Dialysis) 181/69 mmHg BP Sitting (Post-Dialysis) 135/78 mmHg Concurrent Access: falseAV Fistula Upper Arm (Left) Arterial Sitting Heart Rate Pre-Dialysis 73 BPM Sitting H eart Rate Post-Dialysis 65 BPM Temperature Pre-Dialysis 98 degF Temperature Post -Dialysis 98.5 degF May 27, 2023 In-Center Hemodialysis Treatment 6853-66-35S20:28:03.000Z 2102-93-13N88:29:43.000Z BP Sitting (Pre-Dialysis) 189/76 mmHg BP Sitting (Post-Dialysis) 117/58 mmHg Concurrent Access: falseAV Fistula Upper Arm (Left) Arterial Sitting Heart Rate Pre-Dialysis 82 BPM BP Standing (Post-Dialysis) 148/57 mmHg Temperature Pre-Dialysis 97.6 degF Sitting Heart Ra te Post-Dialysis 96 BPM Standing Heart Rate Post-Carissa lysis 60 BPM Temperature Post-Dialysis 97 .6 degF May 25, 2023 In-Center Hemodialysis Treatment 6693-62-82U14:51:48.000Z 8339-64-41V43:52:13.000Z BP Sitting (Pre-Dialysis) 157/88 mmHg BP Sitting (Post-Dialysis) 128/67 mmHg Concurrent Access: falseAV Fistula Upper Arm (Left) Arterial Sitting Heart Rate Pre-Dialysis 80 BPM Sitting H eart Rate Post-Dialysis 61 BPM Temperature Pre-Dialysis 98.2 degF Temperature Post -Dialysis 97.3 degF May 23, 2023 In-Center Hemodialysis Treatment 6231-87-22D17:32:00.000Z 9040-73-60N55:36:41.000Z BP Sitting (Pre-Dialysis) 190/83 mmHg BP Sitting (Post-Dialysis) 142/76 mmHg Concurrent Access: falseAV Fistula Upper Arm (Left) Arterial Sitting Heart Rate Pre-Dialysis 76 BPM Sitting H eart Rate Post-Dialysis 62 BPM Temperature Pre-Dialysis 98.3 degF Temperature Post -Dialysis 98.6 degF May 20, 2023 In-Center Hemodialysis Treatment 2457-76-77N19:49:15.000Z 5207-33-34C00:01:45.000Z BP Sitting (Pre-Dialysis) 156/66 mmHg BP Sitting (Post-Dialysis) 127/67 mmHg Concurrent Access: falseAV Fistula Upper Arm (Left) Arterial Sitting Heart Rate Pre-Dialysis 75 BPM Sitting H eart Rate Post-Dialysis 65 BPM Temperature Pre-Dialysis 98 degF Temperature Post -Dialysis 97.5 degF May 18, 2023 In-Center Hemodialysis Treatment 8154-84-60A46:28:31.000Z 6299-12-08H02:28:31.000Z BP Sitting (Pre-Dialysis) 186/70 mmHg BP Sitting (Post-Dialysis) 159/64 mmHg Concurrent Access: falseAV Fistula Upper Arm (Left) Arterial Sitting Heart Rate Pre-Dialysis 81 BPM Sitting H eart Rate Post-Dialysis 60 BPM Temperature Pre-Dialysis 98 degF Temperature Post -Dialysis 97.9 degF May 16, 2023 In-Center Hemodialysis Treatment 3357-66-51V40:28:00.000Z 7447-13-62A30:31:39.000Z BP Sitting (Pre-Dialysis) 182/75 mmHg BP Sitting (Post-Dialysis) 133/68 mmHg Concurrent Access: falseAV Fistula Upper Arm (Left) Arterial Sitting Heart Rate Pre-Dialysis 76 BPM Sitting H eart Rate Post-Dialysis 66 BPM Temperature Pre-Dialysis 97.4 degF Temperature Post -Dialysis 98.1 degF May 13, 2023 In-Center Hemodialysis Treatment 9992-02-21K33:31:02.000Z 9108-84-05N87:31:27.000Z BP Sitting (Pre-Dialysis) 168/100 mmHg BP Sitting (Post-Dialysis) 125/43 mmHg Concurrent Access: falseAV Fistula Upper Arm (Left) Arterial Sitting Heart Rate Pre-Dialysis 82 BPM Sitting H eart Rate Post-Dialysis 64 BPM Temperature Pre-Dialysis 98.1 degF Temperature Post -Dialysis 98.2 degF May 11, 2023 In-Center Hemodialysis Treatment 4227-94-12H87:32:59.000Z 7721-71-49G43:33:24.000Z BP Sitting (Pre-Dialysis) 161/85 mmHg BP Sitting (Post-Dialysis) 122/44 mmHg Concurrent Access: falseAV Fistula Upper Arm (Left) Arterial Sitting Heart Rate Pre-Dialysis 72 BPM Sitting H eart Rate Post-Dialysis 60 BPM Temperature Pre-Dialysis 98.5 degF Temperature Post -Dialysis 98 degF May 09, 2023 In-Center Hemodialysis Treatment 7176-52-48K74:30:00.000Z 2754-06-73P96:31:02.000Z BP Sitting (Pre-Dialysis) 184/93 mmHg BP Sitting (Post-Dialysis) 144/50 mmHg Concurrent Access: falseAV Fistula Upper Arm (Left) Arterial Sitting Heart Rate Pre-Dialysis 71 BPM Sitting H eart Rate Post-Dialysis 64 BPM Temperature Pre-Dialysis 98.7 degF Temperature Post -Dialysis 97.3 degF May 06, 2023 In-Center Hemodialysis Treatment 5659-71-11C88:33:00.000Z 2432-61-00D03:34:33.000Z BP Sitting (Pre-Dialysis) 176/52 mmHg BP Sitting (Post-Dialysis) 137/68 mmHg Concurrent Access: falseAV Fistula Upper Arm (Left) Arterial Sitting Heart Rate Pre-Dialysis 71 BPM Sitting H eart Rate Post-Dialysis 90 BPM Temperature Pre-Dialysis 98.2 degF Temperature Post -Dialysis 97.6 degF May 04, 2023 In-Center Hemodialysis Treatment 5751-73-29Z75:38:00.000Z 1901-25-09I83:41:31.000Z BP Sitting (Pre-Dialysis) 188/71 mmHg BP Sitting (Post-Dialysis) 134/62 mmHg Concurrent Access: falseAV Fistula Upper Arm (Left) Arterial Sitting Heart Rate Pre-Dialysis 68 BPM Sitting H eart Rate Post-Dialysis 63 BPM Temperature Pre-Dialysis 99 degF Temperature Post -Dialysis 97.3 degF May 02, 2023 In-Center Hemodialysis Treatment 3992-84-22J24:36:00.000Z 0740-76-26Q57:36:28.000Z BP Sitting (Pre-Dialysis) 178/72 mmHg BP Sitting (Post-Dialysis) 137/51 mmHg Concurrent Access: falseAV Fistula Upper Arm (Left) Arterial Sitting Heart Rate Pre-Dialysis 68 BPM Sitting H eart Rate Post-Dialysis 62 BPM Temperature Pre-Dialysis 97.7 degF Temperature Post -Dialysis 97.5 degF April 29, 2023 In-Center Hemodialysis Treatment 5763-33-32F30:28:38.000Z 3368-60-06Y64:39:03.000Z BP Sitting (Pre-Dialysis) 169/70 mmHg BP Sitting (Post-Dialysis) 153/58 mmHg Concurrent Access: falseAV Fistula Upper Arm (Left) Arterial Sitting Heart Rate Pre-Dialysis 68 BPM Sitting H eart Rate Post-Dialysis 60 BPM Temperature Pre-Dialysis 98.4 degF Temperature Post -Dialysis 97.3 degF April 27, 2023 In-Center Hemodialysis Treatment 3857-34-27H70:36:00.000Z 5680-85-02T52:41:12.000Z BP Sitting (Pre-Dialysis) 215/93 mmHg BP Sitting (Post-Dialysis) 152/54 mmHg Concurrent Access: falseAV Fistula Upper Arm (Left) Arterial Sitting Heart Rate Pre-Dialysis 78 BPM Sitting H eart Rate Post-Dialysis 67 BPM Temperature Pre-Dialysis 99 degF Temperature Post -Dialysis 97.2 degF April 22, 2023 In-Center Hemodialysis Treatment 4781-10-21D23:29:56.000Z 6583-83-49N78:30:46.000Z BP Sitting (Pre-Dialysis) 163/61 mmHg BP Sitting (Post-Dialysis) 145/67 mmHg Concurrent Access: falseAV Fistula Upper Arm (Left) Arterial Sitting Heart Rate Pre-Dialysis 78 BPM Sitting H eart Rate Post-Dialysis 61 BPM Temperature Pre-Dialysis 98 degF Temperature Post -Dialysis 98.2 degF April 20, 2023 In-Center Hemodialysis Treatment 9920-81-07W66:24:40.000Z 8615-23-59S75:25:55.000Z BP Sitting (Pre-Dialysis) 170/57 mmHg BP Sitting (Post-Dialysis) 151/78 mmHg Concurrent Access: falseAV Fistula Upper Arm (Left) Arterial Sitting Heart Rate Pre-Dialysis 74 BPM Sitting H eart Rate Post-Dialysis 64 BPM Temperature Pre-Dialysis 98.2 degF Temperature Post -Dialysis 97.5 degF April 18, 2023 In-Center Hemodialysis Treatment 0058-61-92B60:32:00.000Z 0751-55-50Z31:33:41.000Z BP Sitting (Pre-Dialysis) 186/76 mmHg BP Sitting (Post-Dialysis) 134/66 mmHg Concurrent Access: falseAV Fistula Upper Arm (Left) Arterial Sitting Heart Rate Pre-Dialysis 74 BPM Sitting H eart Rate Post-Dialysis 64 BPM Temperature Pre-Dialysis 97.9 degF Temperature Post -Dialysis 98.2 degF April 15, 2023 In-Center Hemodialysis Treatment 9083-88-29Q57:28:32.000Z 7424-62-11U87:28:57.000Z BP Sitting (Pre-Dialysis) 164/64 mmHg BP Sitting (Post-Dialysis) 124/65 mmHg Concurrent Access: falseAV Fistula Upper Arm (Left) Arterial Sitting Heart Rate Pre-Dialysis 81 BPM Sitting H eart Rate Post-Dialysis 60 BPM Temperature Pre-Dialysis 97.8 degF Temperature Post -Dialysis 97.1 degF April 13, 2023 In-Center Hemodialysis Treatment 3600-67-43P93:39:44.000Z 8498-37-78H99:39:44.000Z BP Sitting (Pre-Dialysis) 177/77 mmHg BP Sitting (Post-Dialysis) 139/56 mmHg Concurrent Access: falseAV Fistula Upper Arm (Left) Arterial Sitting Heart Rate Pre-Dialysis 73 BPM Sitting H eart Rate Post-Dialysis 61 BPM Temperature Pre-Dialysis 97.3 degF Temperature Post -Dialysis 97.3 degF April 11, 2023 In-Center Hemodialysis Treatment 0620-32-28X13:38:06.000Z 2736-22-94S20:38:31.000Z BP Sitting (Pre-Dialysis) 181/78 mmHg BP Sitting (Post-Dialysis) 152/55 mmHg Concurrent Access: falseAV Fistula Upper Arm (Left) Arterial Sitting Heart Rate Pre-Dialysis 80 BPM Sitting H eart Rate Post-Dialysis 61 BPM Temperature Pre-Dialysis 98.4 degF Temperature Post -Dialysis 96.4 degF April 08, 2023 In-Center Hemodialysis Treatment 4011-91-55Q82:35:43.000Z 7431-43-35I65:35:18.000Z BP Sitting (Pre-Dialysis) 181/89 mmHg BP Sitting (Post-Dialysis) 152/76 mmHg Concurrent Access: falseAV Fistula Upper Arm (Left) Arterial Sitting Heart Rate Pre-Dialysis 85 BPM Sitting H eart Rate Post-Dialysis 63 BPM Temperature Pre-Dialysis 97.8 degF Temperature Post -Dialysis 97.6 degF April 06, 2023 In-Center Hemodialysis Treatment 6059-75-66L99:30:32.000Z 1926-91-85S46:35:57.000Z BP Sitting (Pre-Dialysis) 174/90 mmHg BP Sitting (Post-Dialysis) 159/54 mmHg Concurrent Access: falseAV Fistula Upper Arm (Left) Arterial Sitting Heart Rate Pre-Dialysis 85 BPM Sitting H eart Rate Post-Dialysis 62 BPM Temperature Pre-Dialysis 97.6 degF Temperature Post -Dialysis 97.6 degF April 04, 2023 In-Center Hemodialysis Treatment 1620-20-75Q04:54:00.000Z 2287-46-20G08:55:53.000Z BP Sitting (Pre-Dialysis) 190/71 mmHg BP Sitting (Post-Dialysis) 126/87 mmHg Concurrent Access: falseAV Fistula Upper Arm (Left) Arterial Sitting Heart Rate Pre-Dialysis 75 BPM Sitting H eart Rate Post-Dialysis 69 BPM Temperature Pre-Dialysis 98 degF Temperature Post -Dialysis 96.7 degF April 01, 2023 In-Center Hemodialysis Treatment 9213-91-43X57:07:09.000Z 3284-23-98O68:09:14.000Z BP Sitting (Pre-Dialysis) 174/71 mmHg BP Sitting (Post-Dialysis) 182/61 mmHg Concurrent Access: falseAV Fistula Upper Arm (Left) Arterial Sitting Heart Rate Pre-Dialysis 74 BPM Sitting H eart Rate Post-Dialysis 62 BPM Temperature Pre-Dialysis 97.2 degF Temperature Post -Dialysis 97.3 degF March 29, 2023 In-Center Hemodialysis Treatment 8002-43-26T57:58:24.000Z 7581-66-13H04:59:14.000Z BP Sitting (Pre-Dialysis) 161/68 mmHg BP Sitting (Post-Dialysis) 154/75 mmHg Concurrent Access: falseAV Fistula Upper Arm (Left) Arterial Sitting Heart Rate Pre-Dialysis 69 BPM Sitting H eart Rate Post-Dialysis 58 BPM Temperature Pre-Dialysis 97.9 degF Temperature Post -Dialysis 98 degF March 27, 2023 In-Center Hemodialysis Treatment 9823-42-90Z71:12:14.000Z 8058-51-08P82:12:39.000Z BP Sitting (Pre-Dialysis) 186/74 mmHg BP Sitting (Post-Dialysis) 158/77 mmHg Concurrent Access: falseAV Fistula Upper Arm (Left) Arterial Sitting Heart Rate Pre-Dialysis 74 BPM Sitting H eart Rate Post-Dialysis 66 BPM Temperature Pre-Dialysis 97.2 degF Temperature Post -Dialysis 97.2 degF March 25, 2023 In-Center Hemodialysis Treatment 5785-23-37G05:35:59.000Z 6893-02-48H32:40:09.000Z BP Sitting (Pre-Dialysis) 184/73 mmHg BP Sitting (Post-Dialysis) 162/77 mmHg Concurrent Access: falseAV Fistula Upper Arm (Left) Arterial Sitting Heart Rate Pre-Dialysis 76 BPM Sitting H eart Rate Post-Dialysis 63 BPM Temperature Pre-Dialysis 98.1 degF Temperature Post -Dialysis 98 degF March 23, 2023 In-Center Hemodialysis Treatment 9365-21-08I72:49:45.000Z 0670-32-98V10:50:10.000Z BP Sitting (Pre-Dialysis) 165/69 mmHg BP Sitting (Post-Dialysis) 166/85 mmHg Concurrent Access: falseAV Fistula Upper Arm (Left) Arterial Sitting Heart Rate Pre-Dialysis 69 BPM Sitting H eart Rate Post-Dialysis 58 BPM Temperature Pre-Dialysis 98.3 degF Temperature Post -Dialysis 97.7 degF March 21, 2023 In-Center Hemodialysis Treatment 0769-04-36C36:36:01.000Z 4240-03-02L68:39:46.000Z BP Sitting (Pre-Dialysis) 178/69 mmHg BP Sitting (Post-Dialysis) 144/87 mmHg Concurrent Access: falseAV Fistula Upper Arm (Left) Arterial Sitting Heart Rate Pre-Dialysis 69 BPM Sitting H eart Rate Post-Dialysis 53 BPM Temperature Pre-Dialysis 97.6 degF Temperature Post -Dialysis 97.3 degF March 18, 2023 In-Center Hemodialysis Treatment 6935-16-14Y73:45:00.000Z 5959-93-52N10:32:36.000Z BP Sitting (Pre-Dialysis) 192/76 mmHg BP Sitting (Post-Dialysis) 161/82 mmHg Concurrent Access: falseAV Fistula Upper Arm (Left) Arterial Sitting Heart Rate Pre-Dialysis 67 BPM Sitting H eart Rate Post-Dialysis 63 BPM Temperature Pre-Dialysis 97.9 degF Temperature Post -Dialysis 97.6 degF March 16, 2023 In-Center Hemodialysis Treatment 6636-74-05M96:49:21.000Z 8915-80-39C54:49:21.000Z BP Sitting (Pre-Dialysis) 199/85 mmHg BP Sitting (Post-Dialysis) 165/57 mmHg Concurrent Access: falseAV Fistula Upper Arm (Left) Arterial Sitting Heart Rate Pre-Dialysis 78 BPM Sitting H eart Rate Post-Dialysis 66 BPM Temperature Pre-Dialysis 98.5 degF Temperature Post -Dialysis 97.1 degF March 14, 2023 In-Center Hemodialysis Treatment 2035-71-30K11:51:32.000Z 3446-47-60W51:51:32.000Z BP Sitting (Pre-Dialysis) 182/62 mmHg BP Sitting (Post-Dialysis) 163/67 mmHg Concurrent Access: falseAV Fistula Upper Arm (Left) Arterial Sitting Heart Rate Pre-Dialysis 72 BPM Sitting H eart Rate Post-Dialysis 66 BPM Temperature Pre-Dialysis 97.6 degF Temperature Post -Dialysis 97.1 degF March 11, 2023 In-Center Hemodialysis Treatment 1728-80-17S72:11:00.000Z 7341-74-13K66:05:59.000Z BP Sitting (Pre-Dialysis) 86/81 mmHg BP Sitting (Post-Dialysis) 140/58 mmHg Concurrent Access: falseAV Fistula Upper Arm (Left) Arterial Sitting Heart Rate Pre-Dialysis 72 BPM Sitting H eart Rate Post-Dialysis 62 BPM Temperature Pre-Dialysis 98 degF Temperature Post -Dialysis 98 degF March 09, 2023 In-Center Hemodialysis Treatment 0015-55-73O21:30:41.000Z 4131-61-49S54:34:26.000Z BP Sitting (Pre-Dialysis) 167/67 mmHg BP Sitting (Post-Dialysis) 157/71 mmHg Concurrent Access: falseAV Fistula Upper Arm (Left) Arterial Sitting Heart Rate Pre-Dialysis 78 BPM Sitting H eart Rate Post-Dialysis 61 BPM Temperature Pre-Dialysis 98.1 degF Temperature Post -Dialysis 98.1 degF March 07, 2023 In-Center Hemodialysis Treatment 3321-61-33B07:07:06.000Z 5770-47-41K72:07:31.000Z BP Sitting (Pre-Dialysis) 164/74 mmHg BP Sitting (Post-Dialysis) 132/60 mmHg Concurrent Access: falseAV Fistula Upper Arm (Left) Arterial Sitting Heart Rate Pre-Dialysis 71 BPM Sitting H eart Rate Post-Dialysis 63 BPM Temperature Pre-Dialysis 98 degF Temperature Post -Dialysis 97.9 degF March 04, 2023 In-Center Hemodialysis Treatment 6622-75-87Y85:56:44.000Z 2641-08-96F80:57:09.000Z BP Sitting (Pre-Dialysis) 186/67 mmHg BP Sitting (Post-Dialysis) 127/71 mmHg Concurrent Access: falseAV Fistula Upper Arm (Left) Arterial Sitting Heart Rate Pre-Dialysis 82 BPM Sitting H eart Rate Post-Dialysis 60 BPM Temperature Pre-Dialysis 98.2 degF Temperature Post -Dialysis 97.8 degF March 02, 2023 In-Center Hemodialysis Treatment 8214-35-24W12:52:25.000Z 7795-95-34B02:00:20.000Z BP Sitting (Pre-Dialysis) 163/57 mmHg BP Sitting (Post-Dialysis) 123/63 mmHg Concurrent Access: falseAV Fistula Upper Arm (Left) Arterial Sitting Heart Rate Pre-Dialysis 74 BPM Sitting H eart Rate Post-Dialysis 63 BPM Temperature Pre-Dialysis 97.8 degF Temperature Post -Dialysis 97.3 degF February 28, 2023 In-Center Hemodialysis Treatment 6128-23-19F44:49:37.000Z 4900-50-76Z45:50:52.000Z BP Sitting (Pre-Dialysis) 159/31 mmHg BP Sitting (Post-Dialysis) 149/54 mmHg Concurrent Access: falseAV Fistula Upper Arm (Left) Arterial Sitting Heart Rate Pre-Dialysis 66 BPM Sitting H eart Rate Post-Dialysis 59 BPM Temperature Pre-Dialysis 97.9 degF Temperature Post -Dialysis 97.8 degF February 25, 2023 In-Center Hemodialysis Treatment 7142-67-31I52:32:00.000Z 1848-09-58Y71:34:30.000Z BP Sitting (Pre-Dialysis) 166/55 mmHg BP Sitting (Post-Dialysis) 121/77 mmHg Concurrent Access: falseAV Fistula Upper Arm (Left) Arterial Sitting Heart Rate Pre-Dialysis 67 BPM Sitting H eart Rate Post-Dialysis 76 BPM Temperature Pre-Dialysis 98.2 degF Temperature Post -Dialysis 97.6 degF February 23, 2023 In-Center Hemodialysis Treatment 0195-82-76H00:08:49.000Z 1641-75-28W05:08:49.000Z BP Sitting (Pre-Dialysis) 177/74 mmHg BP Sitting (Post-Dialysis) 117/53 mmHg Concurrent Access: falseAV Fistula Upper Arm (Left) Arterial Sitting Heart Rate Pre-Dialysis 74 BPM Sitting H eart Rate Post-Dialysis 65 BPM Temperature Pre-Dialysis 97.8 degF Temperature Post -Dialysis 97.2 degF February 21, 2023 In-Center Hemodialysis Treatment 9818-36-77Y33:40:00.000Z 6801-68-87X27:42:36.000Z BP Sitting (Pre-Dialysis) 192/66 mmHg BP Sitting (Post-Dialysis) 132/52 mmHg Concurrent Access: falseAV Fistula Upper Arm (Left) Arterial Sitting Heart Rate Pre-Dialysis 76 BPM Sitting H eart Rate Post-Dialysis 58 BPM Temperature Pre-Dialysis 98.2 degF Temperature Post -Dialysis 97.2 degF February 18, 2023 In-Center Hemodialysis Treatment 8447-70-90F43:23:00.000Z 5962-06-38Q82:26:38.000Z BP Sitting (Pre-Dialysis) 175/65 mmHg BP Sitting (Post-Dialysis) 154/54 mmHg Concurrent Access: falseAV Fistula Upper Arm (Left) Arterial Sitting Heart Rate Pre-Dialysis 82 BPM Sitting H eart Rate Post-Dialysis 56 BPM Temperature Pre-Dialysis 98.2 degF Temperature Post -Dialysis 96.3 degF February 16, 2023 In-Center Hemodialysis Treatment 3692-89-80X57:42:47.000Z 6158-94-27Y01:43:37.000Z BP Sitting (Pre-Dialysis) 182/48 mmHg BP Sitting (Post-Dialysis) 131/47 mmHg Concurrent Access: falseAV Fistula Upper Arm (Left) Arterial Sitting Heart Rate Pre-Dialysis 76 BPM Sitting H eart Rate Post-Dialysis 88 BPM Temperature Pre-Dialysis 97.8 degF Temperature Post -Dialysis 97.7 degF February 14, 2023 In-Center Hemodialysis Treatment 6640-94-01A14:45:28.000Z 7823-65-44Y81:46:43.000Z BP Sitting (Pre-Dialysis) 196/80 mmHg BP Sitting (Post-Dialysis) 168/98 mmHg Concurrent Access: falseAV Fistula Upper Arm (Left) Arterial Sitting Heart Rate Pre-Dialysis 79 BPM Sitting H eart Rate Post-Dialysis 71 BPM Temperature Pre-Dialysis 97.7 degF Temperature Post -Dialysis 97.4 degF February 11, 2023 In-Center Hemodialysis Treatment 3103-19-60R11:22:00.000Z 3588-28-98A87:26:22.000Z BP Sitting (Pre-Dialysis) 174/75 mmHg BP Sitting (Post-Dialysis) 157/67 mmHg Concurrent Access: falseAV Fistula Upper Arm (Left) Arterial Sitting Heart Rate Pre-Dialysis 82 BPM Sitting H eart Rate Post-Dialysis 63 BPM Temperature Pre-Dialysis 97 degF Temperature Post -Dialysis 97.9 degF February 09, 2023 In-Center Hemodialysis Treatment 1947-39-55P88:00:53.000Z 5854-16-65T96:00:53.000Z BP Sitting (Pre-Dialysis) 172/72 mmHg BP Sitting (Post-Dialysis) 185/70 mmHg Concurrent Access: falseAV Fistula Upper Arm (Left) Arterial Sitting Heart Rate Pre-Dialysis 71 BPM Sitting H eart Rate Post-Dialysis 60 BPM Temperature Pre-Dialysis 97.6 degF Temperature Post -Dialysis 97.3 degF February 07, 2023 In-Center Hemodialysis Treatment 8420-96-97J88:50:00.000Z 8551-68-54P06:58:22.000Z BP Sitting (Pre-Dialysis) 161/57 mmHg BP Sitting (Post-Dialysis) 167/50 mmHg Concurrent Access: falseAV Fistula Upper Arm (Left) Arterial Sitting Heart Rate Pre-Dialysis 70 BPM Sitting H eart Rate Post-Dialysis 60 BPM Temperature Pre-Dialysis 98.1 degF Temperature Post -Dialysis 97.3 degF February 04, 2023 In-Center Hemodialysis Treatment 1824-62-11U65:36:23.000Z 0745-70-97H20:39:43.000Z BP Sitting (Pre-Dialysis) 146/45 mmHg BP Sitting (Post-Dialysis) 175/70 mmHg Concurrent Access: falseAV Fistula Upper Arm (Left) Arterial Sitting Heart Rate Pre-Dialysis 70 BPM Sitting H eart Rate Post-Dialysis 62 BPM Temperature Pre-Dialysis 97.6 degF Temperature Post -Dialysis 97.7 degF February 02, 2023 In-Center Hemodialysis Treatment 7424-21-74R76:02:37.000Z 3897-50-42I95:59:42.000Z BP Sitting (Pre-Dialysis) 171/78 mmHg BP Sitting (Post-Dialysis) 172/78 mmHg Concurrent Access: falseAV Fistula Upper Arm (Left) Arterial Sitting Heart Rate Pre-Dialysis 73 BPM Sitting H eart Rate Post-Dialysis 60 BPM Temperature Pre-Dialysis 97.7 degF Temperature Post -Dialysis 97.2 degF January 31, 2023 In-Center Hemodialysis Treatment 3052-59-70Q21:48:35.000Z 2263-65-48I41:51:05.000Z BP Sitting (Pre-Dialysis) 162/88 mmHg BP Sitting (Post-Dialysis) 141/52 mmHg Concurrent Access: falseAV Fistula Upper Arm (Left) Arterial Sitting Heart Rate Pre-Dialysis 73 BPM Sitting H eart Rate Post-Dialysis 57 BPM Temperature Pre-Dialysis 97.2 degF Temperature Post -Dialysis 97.4 degF January 28, 2023 In-Center Hemodialysis Treatment 1136-80-57U67:50:00.000Z 6898-25-63R98:24:07.000Z BP Sitting (Pre-Dialysis) 163/65 mmHg BP Sitting (Post-Dialysis) 144/64 mmHg Concurrent Access: falseAV Fistula Upper Arm (Left) Arterial Sitting Heart Rate Pre-Dialysis 69 BPM Sitting H eart Rate Post-Dialysis 61 BPM Temperature Pre-Dialysis 98.2 degF Temperature Post -Dialysis 97.6 degF January 26, 2023 In-Center Hemodialysis Treatment 7805-09-18D05:39:36.000Z 6003-75-11A93:39:36.000Z BP Sitting (Pre-Dialysis) 171/64 mmHg BP Sitting (Post-Dialysis) 144/51 mmHg Concurrent Access: falseAV Fistula Upper Arm (Left) Arterial Sitting Heart Rate Pre-Dialysis 77 BPM Sitting H eart Rate Post-Dialysis 58 BPM Temperature Pre-Dialysis 98 degF Temperature Post -Dialysis 97.2 degF January 24, 2023 In-Center Hemodialysis Treatment 8262-80-70K91:19:40.000Z 9835-64-65G64:21:20.000Z BP Sitting (Pre-Dialysis) 187/83 mmHg BP Sitting (Post-Dialysis) 158/66 mmHg Concurrent Access: falseAV Fistula Upper Arm (Left) Arterial Sitting Heart Rate Pre-Dialysis 66 BPM Sitting H eart Rate Post-Dialysis 60 BPM Temperature Pre-Dialysis 98 degF Temperature Post -Dialysis 97.7 degF January 21, 2023 In-Center Hemodialysis Treatment 3021-82-71L03:28:00.000Z 0430-13-62D02:33:26.000Z BP Sitting (Pre-Dialysis) 140/40 mmHg BP Sitting (Post-Dialysis) 131/53 mmHg Concurrent Access: falseAV Fistula Upper Arm (Left) Arterial Sitting Heart Rate Pre-Dialysis 76 BPM Sitting H eart Rate Post-Dialysis 62 BPM Temperature Pre-Dialysis 97.3 degF Temperature Post -Dialysis 98.1 degF January 19, 2023 In-Center Hemodialysis Treatment 7413-83-78P26:54:00.000Z 1625-38-94U66:58:39.000Z BP Sitting (Pre-Dialysis) 159/53 mmHg BP Sitting (Post-Dialysis) 154/56 mmHg Concurrent Access: falseAV Fistula Upper Arm (Left) Arterial Sitting Heart Rate Pre-Dialysis 75 BPM Sitting H eart Rate Post-Dialysis 53 BPM Temperature Pre-Dialysis 97.8 degF Temperature Post -Dialysis 97.8 degF January 17, 2023 In-Center Hemodialysis Treatment 6044-33-75R48:31:00.000Z 1772-29-53S11:32:46.000Z BP Sitting (Pre-Dialysis) 178/70 mmHg BP Sitting (Post-Dialysis) 125/63 mmHg Concurrent Access: falseAV Fistula Upper Arm (Left) Arterial Sitting Heart Rate Pre-Dialysis 72 BPM Sitting H eart Rate Post-Dialysis 59 BPM Temperature Pre-Dialysis 98 degF Temperature Post -Dialysis 97.8 degF January 14, 2023 In-Center Hemodialysis Treatment 8893-60-05L98:18:00.000Z 0328-39-34B18:17:31.000Z BP Sitting (Pre-Dialysis) 204/86 mmHg BP Sitting (Post-Dialysis) 150/76 mmHg Concurrent Access: falseAV Fistula Upper Arm (Left) Arterial Sitting Heart Rate Pre-Dialysis 77 BPM Sitting H eart Rate Post-Dialysis 60 BPM Temperature Pre-Dialysis 97.9 degF Temperature Post -Dialysis 97.6 degF January 12, 2023 In-Center Hemodialysis Treatment 5840-86-91G51:07:00.000Z 8580-79-51P94:13:45.000Z BP Sitting (Pre-Dialysis) 172/67 mmHg BP Sitting (Post-Dialysis) 153/52 mmHg Concurrent Access: falseAV Fistula Upper Arm (Left) Arterial Sitting Heart Rate Pre-Dialysis 76 BPM Sitting H eart Rate Post-Dialysis 65 BPM Temperature Pre-Dialysis 98.7 degF Temperature Post -Dialysis 97.9 degF January 10, 2023 In-Center Hemodialysis Treatment 9722-48-32G88:48:00.000Z 4544-61-95X04:48:20.000Z BP Sitting (Pre-Dialysis) 198/73 mmHg BP Sitting (Post-Dialysis) 153/75 mmHg Concurrent Access: falseAV Fistula Upper Arm (Left) Arterial Sitting Heart Rate Pre-Dialysis 74 BPM Sitting H eart Rate Post-Dialysis 62 BPM Temperature Pre-Dialysis 97.9 degF Temperature Post -Dialysis 97.2 degF January 07, 2023 In-Center Hemodialysis Treatment 8362-60-98N27:45:08.000Z 3238-66-33Z18:45:33.000Z BP Sitting (Pre-Dialysis) 181/41 mmHg BP Sitting (Post-Dialysis) 149/66 mmHg Concurrent Access: falseAV Fistula Upper Arm (Left) Arterial Sitting Heart Rate Pre-Dialysis 77 BPM Sitting H eart Rate Post-Dialysis 59 BPM Temperature Pre-Dialysis 97.9 degF Temperature Post -Dialysis 97.7 degF January 05, 2023 In-Center Hemodialysis Treatment 2235-67-13X18:03:08.000Z 0474-82-17O51:03:33.000Z BP Sitting (Pre-Dialysis) 197/63 mmHg BP Sitting (Post-Dialysis) 164/57 mmHg Concurrent Access: falseAV Fistula Upper Arm (Left) Arterial Sitting Heart Rate Pre-Dialysis 79 BPM Sitting H eart Rate Post-Dialysis 68 BPM Temperature Pre-Dialysis 97.6 degF Temperature Post -Dialysis 97.3 degF January 03, 2023 In-Center Hemodialysis Treatment 6656-05-65S39:43:39.000Z 8125-70-71S56:43:39.000Z BP Sitting (Pre-Dialysis) 201/69 mmHg BP Sitting (Post-Dialysis) 194/93 mmHg Concurrent Access: falseAV Fistula Upper Arm (Left) Arterial Sitting Heart Rate Pre-Dialysis 72 BPM Sitting H eart Rate Post-Dialysis 62 BPM Temperature Pre-Dialysis 97.9 degF Temperature Post -Dialysis 97.3 degF December 31, 2022 In-Center Hemodialysis Treatment 8718-19-96N99:31:26.000Z 6179-47-20C22:34:46.000Z BP Sitting (Pre-Dialysis) 115/66 mmHg BP Sitting (Post-Dialysis) 121/54 mmHg Concurrent Access: falseAV Fistula Upper Arm (Left) Arterial Sitting Heart Rate Pre-Dialysis 73 BPM Sitting H eart Rate Post-Dialysis 74 BPM Temperature Pre-Dialysis 97.3 degF Temperature Post -Dialysis 97.8 degF December 29, 2022 In-Center Hemodialysis Treatment 6258-03-53N04:40:41.000Z 4294-50-63R56:40:16.000Z BP Sitting (Pre-Dialysis) 154/63 mmHg BP Sitting (Post-Dialysis) 188/80 mmHg Concurrent Access: falseAV Fistula Upper Arm (Left) Arterial Sitting Heart Rate Pre-Dialysis 76 BPM Sitting H eart Rate Post-Dialysis 59 BPM Temperature Pre-Dialysis 98.2 degF Temperature Post -Dialysis 97.9 degF December 27, 2022 In-Center Hemodialysis Treatment 7027-40-54S08:38:43.000Z 7058-85-18K04:40:14.000Z BP Sitting (Pre-Dialysis) 170/72 mmHg BP Sitting (Post-Dialysis) 106/51 mmHg Concurrent Access: falseAV Fistula Upper Arm (Left) Arterial Sitting Heart Rate Pre-Dialysis 75 BPM Sitting H eart Rate Post-Dialysis 70 BPM Temperature Pre-Dialysis 97.6 degF Temperature Post -Dialysis 97.7 degF December 24, 2022 In-Center Hemodialysis Treatment 5867-72-67T88:38:13.000Z 7413-26-03P07:39:53.000Z BP Sitting (Pre-Dialysis) 117/77 mmHg BP Sitting (Post-Dialysis) 157/59 mmHg Concurrent Access: falseAV Fistula Upper Arm (Left) Arterial Sitting Heart Rate Pre-Dialysis 77 BPM Sitting H eart Rate Post-Dialysis 63 BPM Temperature Pre-Dialysis 98.1 degF Temperature Post -Dialysis 98.1 degF December 22, 2022 In-Center Hemodialysis Treatment 6446-13-81Q49:22:00.000Z 2546-01-86O77:23:39.000Z BP Sitting (Pre-Dialysis) 181/88 mmHg BP Sitting (Post-Dialysis) 154/60 mmHg Concurrent Access: falseAV Fistula Upper Arm (Left) Arterial Sitting Heart Rate Pre-Dialysis 81 BPM Sitting H eart Rate Post-Dialysis 63 BPM Temperature Pre-Dialysis 98.2 degF Temperature Post -Dialysis 98 degF December 20, 2022 In-Center Hemodialysis Treatment 2755-59-54O16:18:00.000Z 4165-91-93O00:17:58.000Z BP Sitting (Pre-Dialysis) 208/73 mmHg BP Sitting (Post-Dialysis) 155/62 mmHg Concurrent Access: falseAV Fistula Upper Arm (Left) Arterial Sitting Heart Rate Pre-Dialysis 80 BPM Sitting H eart Rate Post-Dialysis 59 BPM Temperature Pre-Dialysis 97.9 degF Temperature Post -Dialysis 97.3 degF December 17, 2022 In-Center Hemodialysis Treatment 0218-11-69W21:43:18.000Z 7883-25-59A38:43:43.000Z BP Sitting (Pre-Dialysis) 175/62 mmHg BP Sitting (Post-Dialysis) 134/60 mmHg Concurrent Access: falseAV Fistula Upper Arm (Left) Arterial Sitting Heart Rate Pre-Dialysis 73 BPM Sitting H eart Rate Post-Dialysis 67 BPM Temperature Pre-Dialysis 97.2 degF Temperature Post -Dialysis 97.7 degF December 15, 2022 In-Center Hemodialysis Treatment 8873-83-84E02:39:09.000Z 3064-79-95Y34:37:29.000Z BP Sitting (Pre-Dialysis) 178/73 mmHg BP Sitting (Post-Dialysis) 153/71 mmHg Concurrent Access: falseAV Fistula Upper Arm (Left) Arterial Sitting Heart Rate Pre-Dialysis 76 BPM Sitting H eart Rate Post-Dialysis 63 BPM Temperature Pre-Dialysis 98 degF Temperature Post -Dialysis 97.6 degF December 13, 2022 In-Center Hemodialysis Treatment 3305-77-38Z22:40:25.000Z 4127-30-74B78:40:25.000Z BP Sitting (Pre-Dialysis) 176/77 mmHg BP Sitting (Post-Dialysis) 126/60 mmHg Concurrent Access: falseAV Fistula Upper Arm (Left) Arterial Sitting Heart Rate Pre-Dialysis 71 BPM Sitting H eart Rate Post-Dialysis 65 BPM Temperature Pre-Dialysis 98.1 degF Temperature Post -Dialysis 97.7 degF December 10, 2022 In-Center Hemodialysis Treatment 0300-00-06P15:33:35.000Z 2925-18-15E86:36:55.000Z BP Sitting (Pre-Dialysis) 180/73 mmHg BP Sitting (Post-Dialysis) 148/41 mmHg Concurrent Access: falseAV Fistula Upper Arm (Left) Arterial Sitting Heart Rate Pre-Dialysis 78 BPM Sitting H eart Rate Post-Dialysis 65 BPM Temperature Pre-Dialysis 98.3 degF Temperature Post -Dialysis 98 degF December 08, 2022 In-Center Hemodialysis Treatment 9871-02-47A17:39:34.000Z 8217-28-98K47:39:59.000Z BP Sitting (Pre-Dialysis) 133/105 mmHg BP Sitting (Post-Dialysis) 141/63 mmHg Concurrent Access: falseAV Fistula Upper Arm (Left) Arterial Sitting Heart Rate Pre-Dialysis 67 BPM Sitting H eart Rate Post-Dialysis 61 BPM Temperature Pre-Dialysis 98.2 degF Temperature Post -Dialysis 97.9 degF December 06, 2022 In-Center Hemodialysis Treatment 6928-13-90C31:57:49.000Z 8278-94-55W26:53:39.000Z BP Sitting (Pre-Dialysis) 168/70 mmHg BP Sitting (Post-Dialysis) 167/71 mmHg Concurrent Access: falseAV Fistula Upper Arm (Left) Arterial Sitting Heart Rate Pre-Dialysis 80 BPM Sitting H eart Rate Post-Dialysis 68 BPM Temperature Pre-Dialysis 98 degF Temperature Post -Dialysis 98 degF December 03, 2022 In-Center Hemodialysis Treatment 8551-31-65S87:34:54.000Z 8987-27-51B40:35:44.000Z BP Sitting (Pre-Dialysis) 152/72 mmHg BP Sitting (Post-Dialysis) 154/56 mmHg Concurrent Access: falseAV Fistula Upper Arm (Left) Arterial Sitting Heart Rate Pre-Dialysis 63 BPM Sitting H eart Rate Post-Dialysis 67 BPM Temperature Pre-Dialysis 98.2 degF Temperature Post -Dialysis 97.7 degF December 01, 2022 In-Center Hemodialysis Treatment 0545-35-17U28:17:06.000Z 7806-82-62Z21:17:31.000Z BP Sitting (Pre-Dialysis) 107/79 mmHg BP Sitting (Post-Dialysis) 157/65 mmHg Concurrent Access: falseAV Fistula Upper Arm (Left) Arterial Sitting Heart Rate Pre-Dialysis 58 BPM Sitting H eart Rate Post-Dialysis 62 BPM Temperature Pre-Dialysis 97.8 degF Temperature Post -Dialysis 98 degF November 29, 2022 In-Center Hemodialysis Treatment 2797-51-63M03:39:23.000Z 0285-09-56Z80:38:58.000Z BP Sitting (Pre-Dialysis) 115/64 mmHg BP Sitting (Post-Dialysis) 156/64 mmHg Concurrent Access: falseAV Fistula Upper Arm (Left) Arterial Sitting Heart Rate Pre-Dialysis 86 BPM Sitting H eart Rate Post-Dialysis 63 BPM Temperature Pre-Dialysis 98 degF Temperature Post -Dialysis 97.9 degF November 26, 2022 In-Center Hemodialysis Treatment 7360-39-03K07:41:15.000Z 3772-46-48K84:42:05.000Z BP Sitting (Pre-Dialysis) 172/54 mmHg BP Sitting (Post-Dialysis) 156/53 mmHg Concurrent Access: falseAV Fistula Upper Arm (Left) Arterial Sitting Heart Rate Pre-Dialysis 81 BPM Sitting H eart Rate Post-Dialysis 73 BPM Temperature Pre-Dialysis 98.1 degF Temperature Post -Dialysis 97 degF November 24, 2022 In-Center Hemodialysis Treatment 3462-63-42I16:46:00.000Z 4177-74-08W75:54:29.000Z BP Sitting (Pre-Dialysis) 127/45 mmHg BP Sitting (Post-Dialysis) 145/85 mmHg Concurrent Access: falseAV Fistula Upper Arm (Left) Arterial Sitting Heart Rate Pre-Dialysis 76 BPM Sitting H eart Rate Post-Dialysis 63 BPM Temperature Pre-Dialysis 98.1 degF Temperature Post -Dialysis 97.6 degF November 22, 2022 In-Center Hemodialysis Treatment 6456-51-34H53:56:07.000Z 4284-02-06R88:56:57.000Z BP Sitting (Pre-Dialysis) 186/75 mmHg BP Sitting (Post-Dialysis) 146/70 mmHg Concurrent Access: falseAV Fistula Upper Arm (Left) Arterial Sitting Heart Rate Pre-Dialysis 73 BPM Sitting H eart Rate Post-Dialysis 64 BPM Temperature Pre-Dialysis 98.1 degF Temperature Post -Dialysis 97.2 degF November 19, 2022 In-Center Hemodialysis Treatment 0593-72-90O58:10:00.000Z 8680-04-87W19:09:40.000Z BP Sitting (Pre-Dialysis) 165/89 mmHg BP Sitting (Post-Dialysis) 135/76 mmHg Concurrent Access: falseAV Fistula Upper Arm (Left) Arterial Sitting Heart Rate Pre-Dialysis 85 BPM Sitting H eart Rate Post-Dialysis 70 BPM Temperature Pre-Dialysis 97.2 degF Temperature Post -Dialysis 97.6 degF November 17, 2022 In-Center Hemodialysis Treatment 0512-98-48J87:45:00.000Z 9746-14-73O30:48:42.000Z BP Sitting (Pre-Dialysis) 173/78 mmHg BP Sitting (Post-Dialysis) 168/67 mmHg Concurrent Access: falseAV Fistula Upper Arm (Left) Arterial Sitting Heart Rate Pre-Dialysis 82 BPM Sitting H eart Rate Post-Dialysis 61 BPM Temperature Pre-Dialysis 98.2 degF Temperature Post -Dialysis 97.8 degF November 15, 2022 In-Center Hemodialysis Treatment 1058-30-32D64:05:00.000Z 6672-74-53C75:13:19.000Z BP Sitting (Pre-Dialysis) 189/72 mmHg BP Sitting (Post-Dialysis) 168/62 mmHg Concurrent Access: falseAV Fistula Upper Arm (Left) Arterial Sitting Heart Rate Pre-Dialysis 82 BPM Sitting H eart Rate Post-Dialysis 68 BPM Temperature Pre-Dialysis 98 degF Temperature Post -Dialysis 97.6 degF November 12, 2022 In-Center Hemodialysis Treatment 4389-34-84V79:51:00.000Z 7729-83-33R71:54:10.000Z BP Sitting (Pre-Dialysis) 175/71 mmHg BP Sitting (Post-Dialysis) 141/78 mmHg Concurrent Access: falseAV Fistula Upper Arm (Left) Arterial Sitting Heart Rate Pre-Dialysis 83 BPM Sitting H eart Rate Post-Dialysis 67 BPM Temperature Pre-Dialysis 97.6 degF Temperature Post -Dialysis 97.8 degF November 10, 2022 In-Center Hemodialysis Treatment 2522-43-07C89:46:00.000Z 4107-90-74U80:48:45.000Z BP Sitting (Pre-Dialysis) 175/53 mmHg BP Sitting (Post-Dialysis) 163/55 mmHg Concurrent Access: falseAV Fistula Upper Arm (Left) Arterial Sitting Heart Rate Pre-Dialysis 79 BPM Sitting H eart Rate Post-Dialysis 63 BPM Temperature Pre-Dialysis 97.2 degF Temperature Post -Dialysis 97.9 degF November 08, 2022 In-Center Hemodialysis Treatment 3612-29-06Z38:45:00.000Z 2612-03-48S47:45:54.000Z BP Sitting (Pre-Dialysis) 178/73 mmHg BP Sitting (Post-Dialysis) 136/90 mmHg Concurrent Access: falseAV Fistula Upper Arm (Left) Arterial Sitting Heart Rate Pre-Dialysis 86 BPM Sitting H eart Rate Post-Dialysis 60 BPM Temperature Pre-Dialysis 98.3 degF Temperature Post -Dialysis 98 degF November 05, 2022 In-Center Hemodialysis Treatment [id number]:40:15.000Z 0015-99-40Z72:40:15.000Z BP Sitting (Pre-Dialysis) 151/84 mmHg BP Sitting (Post-Dialysis) 170/76 mmHg Concurrent Access: falseAV Fistula Upper Arm (Left) Arterial Sitting Heart Rate Pre-Dialysis 83 BPM Sitting H eart Rate Post-Dialysis 67 BPM Temperature Pre-Dialysis 97.7 degF Temperature Post -Dialysis 97.6 degF November 03, 2022 In-Center Hemodialysis Treatment 7658-91-83R87:44:00.000Z 2578-21-62O08:46:11.000Z BP Sitting (Pre-Dialysis) 157/78 mmHg BP Sitting (Post-Dialysis) 152/79 mmHg Concurrent Access: falseAV Fistula Upper Arm (Left) Arterial Sitting Heart Rate Pre-Dialysis 98 BPM Sitting H eart Rate Post-Dialysis 76 BPM Temperature Pre-Dialysis 98.2 degF Temperature Post -Dialysis 97.3 degF November 01, 2022 In-Center Hemodialysis Treatment 9699-81-86K16:00:00.000Z 8620-25-84J98:04:48.000Z BP Sitting (Pre-Dialysis) 170/78 mmHg BP Sitting (Post-Dialysis) 171/67 mmHg Concurrent Access: falseAV Fistula Upper Arm (Left) Arterial Sitting Heart Rate Pre-Dialysis 80 BPM Sitting H eart Rate Post-Dialysis 64 BPM Temperature Pre-Dialysis 97.9 degF Temperature Post -Dialysis 97.6 degF October 29, 2022 In-Center Hemodialysis Treatment 6446-71-89I74:45:15.000Z 0203-26-41W25:45:15.000Z BP Sitting (Pre-Dialysis) 166/62 mmHg BP Sitting (Post-Dialysis) 160/71 mmHg Concurrent Access: falseAV Fistula Upper Arm (Left) Arterial Sitting Heart Rate Pre-Dialysis 84 BPM Sitting H eart Rate Post-Dialysis 64 BPM Temperature Pre-Dialysis 98.6 degF Temperature Post -Dialysis 97.8 degF October 27, 2022 In-Center Hemodialysis Treatment 9649-48-73Q49:48:27.000Z 3938-99-28Z36:52:12.000Z BP Sitting (Pre-Dialysis) 147/69 mmHg BP Sitting (Post-Dialysis) 158/66 mmHg Concurrent Access: falseAV Fistula Upper Arm (Left) Arterial Sitting Heart Rate Pre-Dialysis 82 BPM Sitting H eart Rate Post-Dialysis 64 BPM Temperature Pre-Dialysis 98.2 degF Temperature Post -Dialysis 97.3 degF October 25, 2022 In-Center Hemodialysis Treatment 3084-75-62F41:50:51.000Z 8354-80-32O73:51:16.000Z BP Sitting (Pre-Dialysis) 149/80 mmHg BP Sitting (Post-Dialysis) 180/66 mmHg Concurrent Access: falseAV Fistula Upper Arm (Left) Arterial Sitting Heart Rate Pre-Dialysis 76 BPM Sitting H eart Rate Post-Dialysis 60 BPM Temperature Pre-Dialysis 97.8 degF Temperature Post -Dialysis 98 degF October 22, 2022 In-Center Hemodialysis Treatment 4192-38-07A79:18:45.000Z 1732-60-81A50:19:35.000Z BP Sitting (Pre-Dialysis) 172/65 mmHg BP Sitting (Post-Dialysis) 168/40 mmHg Concurrent Access: falseAV Fistula Upper Arm (Left) Arterial Sitting Heart Rate Pre-Dialysis 74 BPM Sitting H eart Rate Post-Dialysis 55 BPM Temperature Pre-Dialysis 97.4 degF Temperature Post -Dialysis 98.4 degF October 20, 2022 In-Center Hemodialysis Treatment 8944-99-34W80:42:12.000Z 1881-95-11W09:42:37.000Z BP Sitting (Pre-Dialysis) 177/73 mmHg BP Sitting (Post-Dialysis) 165/52 mmHg Concurrent Access: falseAV Fistula Upper Arm (Left) Arterial Sitting Heart Rate Pre-Dialysis 73 BPM Sitting H eart Rate Post-Dialysis 59 BPM Temperature Pre-Dialysis 97.8 degF Temperature Post -Dialysis 97.3 degF October 18, 2022 In-Center Hemodialysis Treatment [id number]:46:36.000Z 9756-25-60I07:46:11.000Z BP Sitting (Pre-Dialysis) 141/98 mmHg BP Sitting (Post-Dialysis) 174/67 mmHg Concurrent Access: falseAV Fistula Upper Arm (Left) Arterial Sitting Heart Rate Pre-Dialysis 79 BPM Sitting H eart Rate Post-Dialysis 58 BPM Temperature Pre-Dialysis 98 degF Temperature Post -Dialysis 97.7 degF 2022 In-Center Hemodialysis Treatment 1861-95-85U70:28:54.000Z 1893-74-90T82:28:54.000Z BP Sitting (Pre-Dialysis) 192/76 mmHg BP Sitting (Post-Dialysis) 136/73 mmHg Concurrent Access: falseAV Fistula Upper Arm (Left) Arterial Sitting Heart Rate Pre-Dialysis 76 BPM Sitting H eart Rate Post-Dialysis 67 BPM Temperature Pre-Dialysis 97.6 degF Temperature Post -Dialysis 97.7 degF October 13, 2022 In-Center Hemodialysis Treatment 3800-46-36Y62:55:05.000Z 6079-48-21C32:55:55.000Z BP Sitting (Pre-Dialysis) 156/67 mmHg BP Sitting (Post-Dialysis) 144/88 mmHg Concurrent Access: falseAV Fistula Upper Arm (Left) Arterial Sitting Heart Rate Pre-Dialysis 84 BPM Sitting H eart Rate Post-Dialysis 66 BPM Temperature Pre-Dialysis 97 degF Temperature Post -Dialysis 97.9 degF October 11, 2022 In-Center Hemodialysis Treatment 5594-22-18P08:50:00.000Z 8762-71-51O30:50:37.000Z BP Sitting (Pre-Dialysis) 188/83 mmHg BP Sitting (Post-Dialysis) 183/74 mmHg Concurrent Access: falseAV Fistula Upper Arm (Left) Arterial Sitting Heart Rate Pre-Dialysis 91 BPM Sitting H eart Rate Post-Dialysis 63 BPM Temperature Pre-Dialysis 97.6 degF Temperature Post -Dialysis 98.2 degF October 08, 2022 In-Center Hemodialysis Treatment 1266-39-16R82:07:17.000Z 3044-80-33P93:08:00.000Z BP Sitting (Pre-Dialysis) 183/74 mmHg BP Sitting (Post-Dialysis) 173/82 mmHg Concurrent Access: falseAV Fistula Upper Arm (Left) Arterial Sitting Heart Rate Pre-Dialysis 78 BPM Sitting H eart Rate Post-Dialysis 62 BPM Temperature Pre-Dialysis 97.7 degF Temperature Post -Dialysis 97.7 degF October 06, 2022 In-Center Hemodialysis Treatment 3183-15-00K73:16:04.000Z 5825-09-10U11:18:34.000Z BP Sitting (Pre-Dialysis) 149/53 mmHg BP Sitting (Post-Dialysis) 131/68 mmHg Concurrent Access: falseAV Fistula Upper Arm (Left) Arterial Sitting Heart Rate Pre-Dialysis 72 BPM Sitting H eart Rate Post-Dialysis 77 BPM Temperature Pre-Dialysis 98.2 degF Temperature Post -Dialysis 97.9 degF October 04, 2022 In-Center Hemodialysis Treatment 7000-58-50M25:48:00.000Z 1636-71-60K19:49:00.000Z BP Sitting (Pre-Dialysis) 172/75 mmHg BP Sitting (Post-Dialysis) 168/65 mmHg Concurrent Access: falseAV Fistula Upper Arm (Left) Arterial Sitting Heart Rate Pre-Dialysis 83 BPM Sitting H eart Rate Post-Dialysis 60 BPM Temperature Pre-Dialysis 98 degF Temperature Post -Dialysis 98 degF October 01, 2022 In-Center Hemodialysis Treatment 2110-30-26S42:51:35.000Z 5798-39-21E81:52:50.000Z BP Sitting (Pre-Dialysis) 188/63 mmHg BP Sitting (Post-Dialysis) 155/60 mmHg Concurrent Access: falseAV Fistula Upper Arm (Left) Arterial Sitting Heart Rate Pre-Dialysis 78 BPM Sitting H eart Rate Post-Dialysis 58 BPM Temperature Pre-Dialysis 98.4 degF Temperature Post -Dialysis 97.6 degF September 29, 2022 In-Center Hemodialysis Treatment 7672-54-90W47:47:20.000Z 2355-27-32I48:51:30.000Z BP Sitting (Pre-Dialysis) 175/86 mmHg BP Sitting (Post-Dialysis) 143/58 mmHg Concurrent Access: falseAV Fistula Upper Arm (Left) Arterial Sitting Heart Rate Pre-Dialysis 80 BPM Sitting H eart Rate Post-Dialysis 56 BPM Temperature Pre-Dialysis 97.6 degF Temperature Post -Dialysis 97.6 degF September 27, 2022 In-Center Hemodialysis Treatment 9364-96-40U09:45:00.000Z 4974-95-61I65:46:41.000Z BP Sitting (Pre-Dialysis) 159/93 mmHg BP Sitting (Post-Dialysis) 181/119 mmHg Concurrent Access: falseAV Fistula Upper Arm (Left) Arterial Sitting Heart Rate Pre-Dialysis 70 BPM Sitting H eart Rate Post-Dialysis 56 BPM Temperature Pre-Dialysis 97 degF Temperature Post -Dialysis 96.9 degF September 24, 2022 In-Center Hemodialysis Treatment 6525-23-27B13:54:00.000Z 2208-62-26W26:56:01.000Z BP Sitting (Pre-Dialysis) 192/71 mmHg BP Sitting (Post-Dialysis) 161/92 mmHg Concurrent Access: falseAV Fistula Upper Arm (Left) Arterial Sitting Heart Rate Pre-Dialysis 76 BPM Sitting H eart Rate Post-Dialysis 69 BPM Temperature Pre-Dialysis 98 degF Temperature Post -Dialysis 98.2 degF September 22, 2022 In-Center Hemodialysis Treatment 8008-85-53X82:54:00.000Z 8167-37-94I74:54:17.000Z BP Sitting (Pre-Dialysis) 181/77 mmHg BP Sitting (Post-Dialysis) 175/69 mmHg Concurrent Access: falseAV Fistula Upper Arm (Left) Arterial Sitting Heart Rate Pre-Dialysis 67 BPM Sitting H eart Rate Post-Dialysis 61 BPM Temperature Pre-Dialysis 98.2 degF Temperature Post -Dialysis 98.2 degF September 20, 2022 In-Center Hemodialysis Treatment 5095-53-99F71:55:19.000Z 1666-01-41L50:56:09.000Z BP Sitting (Pre-Dialysis) 186/67 mmHg BP Sitting (Post-Dialysis) 187/75 mmHg Concurrent Access: falseAV Fistula Upper Arm (Left) Arterial Sitting Heart Rate Pre-Dialysis 72 BPM Sitting H eart Rate Post-Dialysis 59 BPM Temperature Pre-Dialysis 97.9 degF Temperature Post -Dialysis 98 degF September 17, 2022 In-Center Hemodialysis Treatment 0989-96-52P10:58:04.000Z 0507-00-71V16:01:24.000Z BP Sitting (Pre-Dialysis) 183/78 mmHg BP Sitting (Post-Dialysis) 150/64 mmHg Concurrent Access: falseAV Fistula Upper Arm (Left) Arterial Sitting Heart Rate Pre-Dialysis 72 BPM Sitting H eart Rate Post-Dialysis 64 BPM Temperature Pre-Dialysis 97.7 degF Temperature Post -Dialysis 97.5 degF September 15, 2022 In-Center Hemodialysis Treatment 9805-32-92X74:00:00.000Z 7920-07-22L81:01:55.000Z BP Sitting (Pre-Dialysis) 189/76 mmHg BP Sitting (Post-Dialysis) 170/70 mmHg Concurrent Access: falseAV Fistula Upper Arm (Left) Arterial Sitting Heart Rate Pre-Dialysis 68 BPM Sitting H eart Rate Post-Dialysis 64 BPM Temperature Pre-Dialysis 98 degF Temperature Post -Dialysis 97.7 degF September 13, 2022 In-Center Hemodialysis Treatment 1421-96-00Q11:59:00.000Z 6318-95-17D44:59:39.000Z BP Sitting (Pre-Dialysis) 163/72 mmHg BP Sitting (Post-Dialysis) 159/57 mmHg Concurrent Access: falseAV Fistula Upper Arm (Left) Arterial Sitting Heart Rate Pre-Dialysis 81 BPM Sitting H eart Rate Post-Dialysis 56 BPM Temperature Pre-Dialysis 97.6 degF Temperature Post -Dialysis 98.3 degF September 10, 2022 In-Center Hemodialysis Treatment 3171-35-11H52:59:46.000Z 5291-55-98B44:00:36.000Z BP Sitting (Pre-Dialysis) 200/88 mmHg BP Sitting (Post-Dialysis) 168/71 mmHg Concurrent Access: falseAV Fistula Upper Arm (Left) Arterial Sitting Heart Rate Pre-Dialysis 83 BPM Sitting H eart Rate Post-Dialysis 64 BPM Temperature Pre-Dialysis 97.8 degF Temperature Post -Dialysis 98.1 degF September 08, 2022 In-Center Hemodialysis Treatment 0306-36-82C09:42:41.000Z 6292-96-50C24:42:41.000Z BP Sitting (Pre-Dialysis) 203/84 mmHg BP Sitting (Post-Dialysis) 148/56 mmHg Concurrent Access: falseAV Fistula Upper Arm (Left) Arterial Sitting Heart Rate Pre-Dialysis 81 BPM Sitting H eart Rate Post-Dialysis 60 BPM Temperature Pre-Dialysis 96.9 degF Temperature Post -Dialysis 97.2 degF September 06, 2022 In-Center Hemodialysis Treatment 3410-05-93I87:04:11.000Z 3649-30-31I17:05:51.000Z BP Sitting (Pre-Dialysis) 189/67 mmHg BP Sitting (Post-Dialysis) 179/60 mmHg Concurrent Access: falseAV Fistula Upper Arm (Left) Arterial Sitting Heart Rate Pre-Dialysis 75 BPM Sitting H eart Rate Post-Dialysis 64 BPM Temperature Pre-Dialysis 98.3 degF Temperature Post -Dialysis 97.2 degF September 03, 2022 In-Center Hemodialysis Treatment 4119-54-18C35:19:20.000Z 5216-89-37H39:19:20.000Z BP Sitting (Pre-Dialysis) 196/75 mmHg BP Sitting (Post-Dialysis) 172/74 mmHg Concurrent Access: falseAV Fistula Upper Arm (Left) Arterial Sitting Heart Rate Pre-Dialysis 72 BPM Sitting H eart Rate Post-Dialysis 60 BPM Temperature Pre-Dialysis 97.7 degF Temperature Post -Dialysis 97.8 degF September 01, 2022 In-Center Hemodialysis Treatment 8442-14-67E85:33:00.000Z 7602-06-42Z86:36:00.000Z BP Sitting (Pre-Dialysis) 180/85 mmHg BP Sitting (Post-Dialysis) 184/75 mmHg Concurrent Access: falseAV Fistula Upper Arm (Left) Arterial Sitting Heart Rate Pre-Dialysis 83 BPM Sitting H eart Rate Post-Dialysis 58 BPM Temperature Pre-Dialysis 97.7 degF Temperature Post -Dialysis 98.1 degF August 30, 2022 In-Center Hemodialysis Treatment 7932-21-41G65:12:00.000Z 1431-91-71L83:13:00.000Z BP Sitting (Pre-Dialysis) 213/92 mmHg BP Sitting (Post-Dialysis) 176/76 mmHg Concurrent Access: falseAV Fistula Upper Arm (Left) Arterial Sitting Heart Rate Pre-Dialysis 84 BPM Sitting H eart Rate Post-Dialysis 58 BPM Temperature Pre-Dialysis 98 degF Temperature Post -Dialysis 97.7 degF August 27, 2022 In-Center Hemodialysis Treatment 0244-42-84E44:30:32.000Z 0628-69-49A87:30:32.000Z BP Sitting (Pre-Dialysis) 180/72 mmHg BP Sitting (Post-Dialysis) 211/76 mmHg Concurrent Access: falseAV Fistula Upper Arm (Left) Arterial Sitting Heart Rate Pre-Dialysis 75 BPM Sitting H eart Rate Post-Dialysis 58 BPM Temperature Pre-Dialysis 98.2 degF Temperature Post -Dialysis 97.5 degF August 25, 2022 In-Center Hemodialysis Treatment 7402-30-54K77:08:00.000Z 1971-04-58K81:09:37.000Z BP Sitting (Pre-Dialysis) 177/80 mmHg BP Sitting (Post-Dialysis) 187/86 mmHg Concurrent Access: falseAV Fistula Upper Arm (Left) Arterial Sitting Heart Rate Pre-Dialysis 79 BPM Sitting H eart Rate Post-Dialysis 58 BPM Temperature Pre-Dialysis 97.3 degF Temperature Post -Dialysis 97.5 degF August 23, 2022 In-Center Hemodialysis Treatment 5904-05-16E77:08:01.000Z 7439-20-53D03:07:11.000Z BP Sitting (Pre-Dialysis) 203/90 mmHg BP Sitting (Post-Dialysis) 152/61 mmHg Concurrent Access: falseAV Fistula Upper Arm (Left) Arterial Sitting Heart Rate Pre-Dialysis 78 BPM Sitting H eart Rate Post-Dialysis 71 BPM Temperature Pre-Dialysis 97.7 degF Temperature Post -Dialysis 98.1 degF August 20, 2022 In-Center Hemodialysis Treatment 3933-27-56K30:00:00.000Z 8433-07-68Z05:00:07.000Z BP Sitting (Pre-Dialysis) 228/80 mmHg BP Sitting (Post-Dialysis) 197/71 mmHg Concurrent Access: falseAV Fistula Upper Arm (Left) Arterial Sitting Heart Rate Pre-Dialysis 76 BPM Sitting H eart Rate Post-Dialysis 75 BPM Temperature Pre-Dialysis 97.8 degF Temperature Post -Dialysis 98.1 degF August 16, 2022 In-Center Hemodialysis Treatment 5853-49-00I23:59:00.000Z 7145-53-90S93:01:07.000Z BP Sitting (Pre-Dialysis) 170/61 mmHg BP Sitting (Post-Dialysis) 133/53 mmHg Concurrent Access: falseAV Fistula Upper Arm (Left) Arterial Sitting Heart Rate Pre-Dialysis 76 BPM Sitting H eart Rate Post-Dialysis 63 BPM Temperature Pre-Dialysis 97.7 degF Temperature Post -Dialysis 97.2 degF August 13, 2022 In-Center Hemodialysis Treatment 6346-83-06I06:08:00.000Z 6925-51-21V34:08:28.000Z BP Sitting (Pre-Dialysis) 202/92 mmHg BP Sitting (Post-Dialysis) 178/95 mmHg Concurrent Access: falseAV Fistula Upper Arm (Left) Arterial Sitting Heart Rate Pre-Dialysis 85 BPM Sitting H eart Rate Post-Dialysis 62 BPM Temperature Pre-Dialysis 98 degF Temperature Post -Dialysis 97.7 degF August 11, 2022 In-Center Hemodialysis Treatment 9369-29-97K96:14:28.000Z 8458-84-29L40:19:28.000Z BP Sitting (Pre-Dialysis) 182/70 mmHg BP Sitting (Post-Dialysis) 174/62 mmHg Concurrent Access: falseAV Fistula Upper Arm (Left) Arterial Sitting Heart Rate Pre-Dialysis 73 BPM Sitting H eart Rate Post-Dialysis 72 BPM Temperature Pre-Dialysis 97 degF Temperature Post -Dialysis 97.7 degF August 09, 2022 In-Center Hemodialysis Treatment 4990-11-42D47:29:56.000Z 3577-36-93M19:44:56.000Z BP Sitting (Pre-Dialysis) 174/72 mmHg BP Sitting (Post-Dialysis) 151/77 mmHg Concurrent Access: falseAV Fistula Upper Arm (Left) Arterial Sitting Heart Rate Pre-Dialysis 85 BPM Sitting H eart Rate Post-Dialysis 69 BPM Temperature Pre-Dialysis 98.4 degF Temperature Post -Dialysis 97.8 degF August 06, 2022 In-Center Hemodialysis Treatment 5474-02-61W09:45:33.000Z 5438-63-34B95:45:33.000Z BP Sitting (Pre-Dialysis) 171/70 mmHg BP Sitting (Post-Dialysis) 173/77 mmHg Concurrent Access: falseAV Fistula Upper Arm (Left) Arterial Sitting Heart Rate Pre-Dialysis 73 BPM Sitting H eart Rate Post-Dialysis 65 BPM Temperature Pre-Dialysis 97.3 degF Temperature Post -Dialysis 97.5 degF August 04, 2022 In-Center Hemodialysis Treatment 7348-25-62T53:55:00.000Z 0340-47-30O10:17:41.000Z BP Sitting (Pre-Dialysis) 194/75 mmHg BP Sitting (Post-Dialysis) 157/69 mmHg Concurrent Access: falseAV Fistula Upper Arm (Left) Arterial Sitting Heart Rate Pre-Dialysis 77 BPM Sitting H eart Rate Post-Dialysis 71 BPM Temperature Pre-Dialysis 97.7 degF Temperature Post -Dialysis 97.1 degF August 02, 2022 In-Center Hemodialysis Treatment 6826-90-28J97:48:00.000Z 2704-97-41Q42:48:02.000Z BP Sitting (Pre-Dialysis) 164/71 mmHg BP Sitting (Post-Dialysis) 133/51 mmHg Concurrent Access: falseAV Fistula Upper Arm (Left) Arterial Sitting Heart Rate Pre-Dialysis 79 BPM Sitting H eart Rate Post-Dialysis 74 BPM Temperature Pre-Dialysis 97.8 degF Temperature Post -Dialysis 97.4 degF July 30, 2022 In-Center Hemodialysis Treatment 3307-88-38T32:24:00.000Z 9504-83-60L56:24:56.000Z BP Sitting (Pre-Dialysis) 196/84 mmHg BP Sitting (Post-Dialysis) 158/73 mmHg Concurrent Access: falseAV Fistula Upper Arm (Left) Arterial Sitting Heart Rate Pre-Dialysis 66 BPM Sitting H eart Rate Post-Dialysis 63 BPM Temperature Pre-Dialysis 97.7 degF Temperature Post -Dialysis 97 degF July 28, 2022 In-Center Hemodialysis Treatment 0803-59-04F54:59:45.000Z 4537-13-13W57:59:45.000Z BP Sitting (Pre-Dialysis) 157/66 mmHg BP Sitting (Post-Dialysis) 157/65 mmHg Concurrent Access: falseAV Fistula Upper Arm (Left) Arterial Sitting Heart Rate Pre-Dialysis 68 BPM Sitting H eart Rate Post-Dialysis 65 BPM Temperature Pre-Dialysis 97.5 degF Temperature Post -Dialysis 97 degF July 26, 2022 In-Center Hemodialysis Treatment 3328-61-86R89:35:43.000Z 4059-79-20B02:35:43.000Z BP Sitting (Pre-Dialysis) 181/93 mmHg BP Sitting (Post-Dialysis) 179/68 mmHg Concurrent Access: falseAV Fistula Upper Arm (Left) Arterial Sitting Heart Rate Pre-Dialysis 82 BPM Sitting H eart Rate Post-Dialysis 64 BPM Temperature Pre-Dialysis 97 degF July 22, 2022 In-Center Hemodialysis Treatment 7705-90-39O58:00:00.000Z 5459-58-77V05:21:00.000Z BP Sitting (Pre-Dialysis) 195/84 mmHg BP Sitting (Post-Dialysis) 159/69 mmHg Concurrent Access: falseAV Fistula Upper Arm (Left) Arterial Sitting Heart Rate Pre-Dialysis 80 BPM Sitting H eart Rate Post-Dialysis 98 BPM Temperature Pre-Dialysis 97.2 degF Temperature Post -Dialysis 97.2 degF July 20, 2022 In-Center Hemodialysis Treatment 5229-14-84O59:15:00.000Z 9952-72-97C53:17:11.000Z BP Sitting (Pre-Dialysis) 198/73 mmHg BP Sitting (Post-Dialysis) 133/62 mmHg Concurrent Access: falseAV Fistula Upper Arm (Left) Arterial Sitting Heart Rate Pre-Dialysis 77 BPM Sitting H eart Rate Post-Dialysis 65 BPM Temperature Pre-Dialysis 97.2 degF Temperature Post -Dialysis 97.2 degF July 18, 2022 In-Center Hemodialysis Treatment 7219-25-67V74:15:00.000Z 3417-19-73F50:23:52.000Z BP Sitting (Pre-Dialysis) 150/82 mmHg BP Sitting (Post-Dialysis) 145/65 mmHg Concurrent Access: falseAV Fistula Upper Arm (Left) Arterial Sitting Heart Rate Pre-Dialysis 75 BPM Sitting H eart Rate Post-Dialysis 67 BPM Temperature Pre-Dialysis 97.9 degF Temperature Post -Dialysis 97.9 degF July 15, 2022 In-Center Hemodialysis Treatment 4552-00-10S47:14:00.000Z 5023-75-55Y84:14:44.000Z BP Sitting (Pre-Dialysis) 179/74 mmHg BP Sitting (Post-Dialysis) 146/64 mmHg Concurrent Access: falseAV Fistula Upper Arm (Left) Arterial Sitting Heart Rate Pre-Dialysis 79 BPM Sitting H eart Rate Post-Dialysis 69 BPM Temperature Pre-Dialysis 97.8 degF Temperature Post -Dialysis 98.1 degF July 13, 2022 In-Center Hemodialysis Treatment 1405-16-71T13:12:00.000Z 9446-99-55M87:13:15.000Z BP Sitting (Pre-Dialysis) 136/72 mmHg BP Sitting (Post-Dialysis) 185/64 mmHg Concurrent Access: falseAV Fistula Upper Arm (Left) Arterial Sitting Heart Rate Pre-Dialysis 69 BPM Sitting H eart Rate Post-Dialysis 79 BPM Temperature Pre-Dialysis 97.2 degF Temperature Post -Dialysis 98 degF July 11, 2022 In-Center Hemodialysis Treatment 6213-66-09C84:09:31.000Z 6352-38-50X94:09:56.000Z BP Sitting (Pre-Dialysis) 149/69 mmHg BP Sitting (Post-Dialysis) 179/76 mmHg Concurrent Access: falseAV Fistula Upper Arm (Left) Arterial Sitting Heart Rate Pre-Dialysis 62 BPM Sitting H eart Rate Post-Dialysis 72 BPM Temperature Pre-Dialysis 97.2 degF Temperature Post -Dialysis 97.2 degF July 08, 2022 In-Center Hemodialysis Treatment 4558-16-66T26:29:02.000Z 2447-44-77H60:28:12.000Z BP Sitting (Pre-Dialysis) 205/85 mmHg BP Sitting (Post-Dialysis) 201/80 mmHg Concurrent Access: falseAV Fistula Upper Arm (Left) Arterial Sitting Heart Rate Pre-Dialysis 74 BPM Sitting H eart Rate Post-Dialysis 62 BPM Temperature Pre-Dialysis 97.7 degF Temperature Post -Dialysis 97.5 degF July 06, 2022 In-Center Hemodialysis Treatment 1071-58-38X02:29:56.000Z 9746-49-21R43:49:31.000Z BP Sitting (Pre-Dialysis) 145/95 mmHg BP Sitting (Post-Dialysis) 167/57 mmHg Concurrent Access: falseAV Fistula Upper Arm (Left) Arterial Sitting Heart Rate Pre-Dialysis 62 BPM Sitting H eart Rate Post-Dialysis 55 BPM Temperature Pre-Dialysis 97.2 degF Temperature Post -Dialysis 97.2 degF July 04, 2022 In-Center Hemodialysis Treatment 7894-29-74G73:08:34.000Z 0462-11-86I48:12:44.000Z BP Sitting (Pre-Dialysis) 155/65 mmHg BP Sitting (Post-Dialysis) 164/62 mmHg Concurrent Access: falseAV Fistula Upper Arm (Left) Arterial Sitting Heart Rate Pre-Dialysis 62 BPM Sitting H eart Rate Post-Dialysis 69 BPM Temperature Pre-Dialysis 97.2 degF Temperature Post -Dialysis 97.2 degF July 01, 2022 In-Center Hemodialysis Treatment 4796-21-16B44:51:00.000Z 9788-04-84Z71:00:59.000Z BP Sitting (Pre-Dialysis) 161/63 mmHg BP Sitting (Post-Dialysis) 152/64 mmHg Concurrent Access: falseAV Fistula Upper Arm (Left) Arterial Sitting Heart Rate Pre-Dialysis 86 BPM Sitting H eart Rate Post-Dialysis 66 BPM Temperature Pre-Dialysis 97 degF Temperature Post -Dialysis 98.1 degF June 29, 2022 In-Center Hemodialysis Treatment 9172-64-03H06:06:00.000Z 1976-03-59Q25:03:31.000Z BP Sitting (Pre-Dialysis) 147/65 mmHg BP Sitting (Post-Dialysis) 161/66 mmHg Concurrent Access: falseAV Fistula Upper Arm (Left) Arterial Sitting Heart Rate Pre-Dialysis 77 BPM Sitting H eart Rate Post-Dialysis 63 BPM Temperature Pre-Dialysis 97.9 degF Temperature Post -Dialysis 97.2 degF June 27, 2022 In-Center Hemodialysis Treatment 0233-02-34F89:20:00.000Z 7260-72-85A33:21:18.000Z BP Sitting (Pre-Dialysis) 171/108 mmHg BP Sitting (Post-Dialysis) 151/64 mmHg Concurrent Access: falseAV Fistula Upper Arm (Left) Arterial Sitting Heart Rate Pre-Dialysis 75 BPM Sitting H eart Rate Post-Dialysis 62 BPM Temperature Pre-Dialysis 97.2 degF Temperature Post -Dialysis 97.2 degF June 24, 2022 In-Center Hemodialysis Treatment 9584-65-53S05:22:00.000Z 1310-39-39E31:20:40.000Z BP Sitting (Pre-Dialysis) 136/49 mmHg BP Sitting (Post-Dialysis) 129/69 mmHg Concurrent Access: falseAV Fistula Upper Arm (Left) Arterial Sitting Heart Rate Pre-Dialysis 69 BPM Sitting H eart Rate Post-Dialysis 62 BPM Temperature Pre-Dialysis 97.2 degF Temperature Post -Dialysis 97.2 degF June 22, 2022 In-Center Hemodialysis Treatment 5151-13-06L51:50:00.000Z 4566-28-50V55:53:41.000Z BP Sitting (Pre-Dialysis) 149/63 mmHg BP Sitting (Post-Dialysis) 153/70 mmHg Concurrent Access: falseAV Fistula Upper Arm (Left) Arterial Sitting Heart Rate Pre-Dialysis 76 BPM Sitting H eart Rate Post-Dialysis 68 BPM Temperature Pre-Dialysis 97.2 degF Temperature Post -Dialysis 97.2 degF June 20, 2022 In-Center Hemodialysis Treatment 5243-69-85B85:42:11.000Z 3087-17-08M57:40:56.000Z BP Sitting (Pre-Dialysis) 160/80 mmHg BP Sitting (Post-Dialysis) 132/69 mmHg Concurrent Access: falseAV Fistula Upper Arm (Left) Arterial Sitting Heart Rate Pre-Dialysis 77 BPM BP Standing (Post-Dialysis) 132/69 mmHg Temperature Pre-Dialysis 97.2 degF Sitting Heart Ra te Post-Dialysis 87 BPM Standing Heart Rate Post-Carissa lysis 87 BPM Temperature Post-Dialysis 97 .2 degF June 17, 2022 In-Center Hemodialysis Treatment 7589-49-46B63:28:00.000Z 8511-90-21N06:31:22.000Z BP Sitting (Pre-Dialysis) 151/59 mmHg BP Sitting (Post-Dialysis) 144/61 mmHg Concurrent Access: falseAV Fistula Upper Arm (Left) Arterial Sitting Heart Rate Pre-Dialysis 73 BPM Sitting H eart Rate Post-Dialysis 63 BPM Temperature Pre-Dialysis 97.2 degF Temperature Post -Dialysis 97.2 degF June 15, 2022 In-Center Hemodialysis Treatment [id number]:24:00.000Z [id number]:25:27.000Z BP Sitting (Pre-Dialysis) 148/65 mmHg BP Sitting (Post-Dialysis) 159/62 mmHg Concurrent Access: falseAV Fistula Upper Arm (Left) Arterial Sitting Heart Rate Pre-Dialysis 62 BPM Sitting H eart Rate Post-Dialysis 64 BPM Temperature Pre-Dialysis 97.2 degF Temperature Post -Dialysis 97.2 degF June 13, 2022 In-Center Hemodialysis Treatment [id number]:19:48.000Z [id number]:21:53.000Z BP Sitting (Pre-Dialysis) 138/63 mmHg BP Sitting (Post-Dialysis) 122/63 mmHg Concurrent Access: falseAV Fistula Upper Arm (Left) Arterial Sitting Heart Rate Pre-Dialysis 72 BPM Sitting H eart Rate Post-Dialysis 69 BPM Temperature Pre-Dialysis 97.2 degF Temperature Post -Dialysis 97.2 degF June 10, 2022 In-Center Hemodialysis Treatment [id number]:10:00.000Z [id number]:11:07.000Z BP Sitting (Pre-Dialysis) 176/63 mmHg BP Sitting (Post-Dialysis) 137/50 mmHg Concurrent Access: falseAV Fistula Upper Arm (Left) Arterial Sitting Heart Rate Pre-Dialysis 88 BPM Sitting H eart Rate Post-Dialysis 67 BPM Temperature Pre-Dialysis 97.2 degF Temperature Post -Dialysis 97.7 degF June 08, 2022 In-Center Hemodialysis Treatment [id number]:59:00.000Z [id number]:08:14.000Z BP Sitting (Pre-Dialysis) 149/59 mmHg BP Sitting (Post-Dialysis) 137/61 mmHg Concurrent Access: falseAV Fistula Upper Arm (Left) Arterial Sitting Heart Rate Pre-Dialysis 69 BPM Sitting H eart Rate Post-Dialysis 62 BPM Temperature Pre-Dialysis 97.4 degF Temperature Post -Dialysis 97.2 degF June 06, 2022 In-Center Hemodialysis Treatment 1330-09-20E18:04:00.000Z [id number]:22:53.000Z BP Sitting (Pre-Dialysis) 186/69 mmHg BP Sitting (Post-Dialysis) 158/72 mmHg Concurrent Access: falseAV Fistula Upper Arm (Left) Arterial Sitting Heart Rate Pre-Dialysis 79 BPM Sitting H eart Rate Post-Dialysis 67 BPM Temperature Pre-Dialysis 97.4 degF Temperature Post -Dialysis 97.2 degF June 03, 2022 In-Center Hemodialysis Treatment [id number]:55:00.000Z [id number]:56:06.000Z BP Sitting (Pre-Dialysis) 168/79 mmHg BP Sitting (Post-Dialysis) 117/53 mmHg Concurrent Access: falseAV Fistula Upper Arm (Left) Arterial Sitting Heart Rate Pre-Dialysis 62 BPM Sitting H eart Rate Post-Dialysis 62 BPM Temperature Pre-Dialysis 97.2 degF Temperature Post -Dialysis 97.2 degF June 01, 2022 In-Center Hemodialysis Treatment [id number]:44:53.000Z [id number]:48:13.000Z BP Sitting (Pre-Dialysis) 166/68 mmHg BP Sitting (Post-Dialysis) 122/76 mmHg Concurrent Access: falseAV Fistula Upper Arm (Left) Arterial Sitting Heart Rate Pre-Dialysis 68 BPM Sitting H eart Rate Post-Dialysis 67 BPM Temperature Pre-Dialysis 97.4 degF Temperature Post -Dialysis 97.9 degF May 30, 2022 In-Center Hemodialysis Treatment [id number]:54:00.000Z [id number]:57:01.000Z BP Sitting (Pre-Dialysis) 169/72 mmHg BP Sitting (Post-Dialysis) 148/52 mmHg Concurrent Access: falseAV Fistula Upper Arm (Left) Arterial Sitting Heart Rate Pre-Dialysis 74 BPM Sitting H eart Rate Post-Dialysis 62 BPM Temperature Pre-Dialysis 97.2 degF Temperature Post -Dialysis 97.9 degF May 27, 2022 In-Center Hemodialysis Treatment [id number]:49:19.000Z [id number]:47:14.000Z BP Sitting (Pre-Dialysis) 158/57 mmHg BP Sitting (Post-Dialysis) 144/78 mmHg Concurrent Access: falseAV Fistula Upper Arm (Left) Arterial Sitting Heart Rate Pre-Dialysis 69 BPM Sitting H eart Rate Post-Dialysis 77 BPM Temperature Pre-Dialysis 97.7 degF Temperature Post -Dialysis 97.2 degF May 25, 2022 In-Center Hemodialysis Treatment [id number]:42:00.000Z [id number]:41:07.000Z BP Sitting (Pre-Dialysis) 162/69 mmHg BP Sitting (Post-Dialysis) 137/58 mmHg Concurrent Access: falseAV Fistula Upper Arm (Left) Arterial Sitting Heart Rate Pre-Dialysis 76 BPM Sitting H eart Rate Post-Dialysis 64 BPM Temperature Pre-Dialysis 97.3 degF Temperature Post -Dialysis 97.7 degF May 23, 2022 In-Center Hemodialysis Treatment [id number]:51:00.000Z [id number]:50:13.000Z BP Sitting (Pre-Dialysis) 180/69 mmHg BP Sitting (Post-Dialysis) 189/78 mmHg Concurrent Access: falseAV Fistula Upper Arm (Left) Arterial Sitting Heart Rate Pre-Dialysis 67 BPM Sitting H eart Rate Post-Dialysis 68 BPM Temperature Pre-Dialysis 97.2 degF Temperature Post -Dialysis 97.2 degF May 20, 2022 In-Center Hemodialysis Treatment [id number]:49:00.000Z 1579-57-78G22:49:52.000Z BP Sitting (Pre-Dialysis) 178/73 mmHg BP Sitting (Post-Dialysis) 156/96 mmHg Concurrent Access: falseAV Fistula Upper Arm (Left) Arterial Sitting Heart Rate Pre-Dialysis 73 BPM Sitting H eart Rate Post-Dialysis 65 BPM Temperature Pre-Dialysis 97.7 degF Temperature Post -Dialysis 97.2 degF May 18, 2022 In-Center Hemodialysis Treatment 1314-09-29N37:52:00.000Z [id number]:56:19.000Z BP Sitting (Pre-Dialysis) 160/66 mmHg BP Sitting (Post-Dialysis) 165/95 mmHg Concurrent Access: falseAV Fistula Upper Arm (Left) Arterial Sitting Heart Rate Pre-Dialysis 74 BPM Sitting H eart Rate Post-Dialysis 80 BPM Temperature Pre-Dialysis 97.7 degF Temperature Post -Dialysis 97.2 degF May 16, 2022 In-Center Hemodialysis Treatment [id number]:57:00.000Z [id number]:05:35.000Z BP Sitting (Pre-Dialysis) 118/99 mmHg BP Sitting (Post-Dialysis) 138/67 mmHg Concurrent Access: falseAV Fistula Upper Arm (Left) Arterial Sitting Heart Rate Pre-Dialysis 98 BPM Sitting H eart Rate Post-Dialysis 56 BPM Temperature Pre-Dialysis 97.7 degF May 13, 2022 In-Center Hemodialysis Treatment [id number]:41:00.000Z [id number]:50:16.000Z BP Sitting (Pre-Dialysis) 170/90 mmHg BP Sitting (Post-Dialysis) 153/62 mmHg Concurrent Access: falseAV Fistula Upper Arm (Left) Arterial Sitting Heart Rate Pre-Dialysis 77 BPM Sitting H eart Rate Post-Dialysis 62 BPM Temperature Pre-Dialysis 97.4 degF Temperature Post -Dialysis 97 degF May 11, 2022 In-Center Hemodialysis Treatment [id number]:53:00.000Z [id number]:57:15.000Z BP Sitting (Pre-Dialysis) 164/77 mmHg BP Sitting (Post-Dialysis) 143/59 mmHg Concurrent Access: falseAV Fistula Upper Arm (Left) Arterial Sitting Heart Rate Pre-Dialysis 66 BPM Sitting H eart Rate Post-Dialysis 64 BPM Temperature Pre-Dialysis 97.2 degF Temperature Post -Dialysis 97 degF May 09, 2022 In-Center Hemodialysis Treatment [id number]:55:00.000Z [id number]:54:13.000Z BP Sitting (Pre-Dialysis) 170/69 mmHg BP Sitting (Post-Dialysis) 140/61 mmHg Concurrent Access: falseAV Fistula Upper Arm (Left) Arterial Sitting Heart Rate Pre-Dialysis 77 BPM Sitting H eart Rate Post-Dialysis 70 BPM Temperature Pre-Dialysis 97.2 degF Temperature Post -Dialysis 97.2 degF May 06, 2022 In-Center Hemodialysis Treatment [id number]:04:00.000Z [id number]:06:21.000Z BP Sitting (Pre-Dialysis) 163/76 mmHg BP Sitting (Post-Dialysis) 135/65 mmHg Concurrent Access: falseAV Fistula Upper Arm (Left) Arterial Sitting Heart Rate Pre-Dialysis 68 BPM Sitting H eart Rate Post-Dialysis 62 BPM Temperature Pre-Dialysis 97.4 degF Temperature Post -Dialysis 97.2 degF May 04, 2022 In-Center Hemodialysis Treatment [id number]:39:12.000Z [id number]:37:32.000Z BP Sitting (Pre-Dialysis) 177/76 mmHg BP Sitting (Post-Dialysis) 189/83 mmHg Concurrent Access: falseAV Fistula Upper Arm (Left) Arterial Sitting Heart Rate Pre-Dialysis 76 BPM Sitting H eart Rate Post-Dialysis 69 BPM Temperature Pre-Dialysis 97.2 degF Temperature Post -Dialysis 97.2 degF May 02, 2022 In-Center Hemodialysis Treatment [id number]:00:00.000Z [id number]:00:15.000Z BP Sitting (Pre-Dialysis) 214/79 mmHg BP Sitting (Post-Dialysis) 170/74 mmHg Concurrent Access: falseAV Fistula Upper Arm (Left) Arterial Sitting Heart Rate Pre-Dialysis 80 BPM Sitting H eart Rate Post-Dialysis 69 BPM Temperature Pre-Dialysis 96.8 degF Temperature Post -Dialysis 97.2 degF April 29, 2022 In-Center Hemodialysis Treatment [id number]:24:35.000Z [id number]:24:35.000Z BP Sitting (Pre-Dialysis) 97/71 mmHg BP Sitting (Post-Dialysis) 173/69 mmHg Concurrent Access: falseAV Fistula Upper Arm (Left) Arterial Sitting Heart Rate Pre-Dialysis 62 BPM Sitting H eart Rate Post-Dialysis 67 BPM Temperature Pre-Dialysis 96.8 degF Temperature Post -Dialysis 97.2 degF April 27, 2022 In-Center Hemodialysis Treatment [id number]:57:00.000Z [id number]:59:52.000Z BP Sitting (Pre-Dialysis) 159/63 mmHg BP Sitting (Post-Dialysis) 122/54 mmHg Concurrent Access: falseAV Fistula Upper Arm (Left) Arterial Sitting Heart Rate Pre-Dialysis 76 BPM Sitting H eart Rate Post-Dialysis 67 BPM Temperature Pre-Dialysis 97.2 degF Temperature Post -Dialysis 97.7 degF April 25, 2022 In-Center Hemodialysis Treatment [id number]:10:44.000Z [id number]:08:14.000Z BP Sitting (Pre-Dialysis) 174/76 mmHg BP Sitting (Post-Dialysis) 155/78 mmHg Concurrent Access: falseAV Fistula Upper Arm (Left) Arterial BP Standing (Pre-Dialysis) 174/76 mmHg Sitti ng Heart Rate Post-Dialysis 69 BPM Sitting Heart Rate Pre-Dialysis 85 BPM Temperatu re Post-Dialysis 97.2 degF Standing Heart Rate Pre-Dialysis 85 BPM Temperature Pre-Dialysis 97.3 degF April 22, 2022 In-Center Hemodialysis Treatment [id number]:15:00.000Z [id number]:34:06.000Z BP Sitting (Pre-Dialysis) 142/63 mmHg BP Sitting (Post-Dialysis) 173/68 mmHg Concurrent Access: falseAV Fistula Upper Arm (Left) Arterial Sitting Heart Rate Pre-Dialysis 77 BPM Sitting H eart Rate Post-Dialysis 67 BPM Temperature Pre-Dialysis 97.2 degF Temperature Post -Dialysis 97.2 degF April 20, 2022 In-Center Hemodialysis Treatment [id number]:08:26.000Z [id number]:15:56.000Z BP Sitting (Pre-Dialysis) 162/62 mmHg BP Sitting (Post-Dialysis) 162/85 mmHg Concurrent Access: falseAV Fistula Upper Arm (Left) Arterial Sitting Heart Rate Pre-Dialysis 76 BPM Sitting H eart Rate Post-Dialysis 65 BPM Temperature Pre-Dialysis 97.3 degF April 18, 2022 In-Center Hemodialysis Treatment BP Sitting (Pre-Dialysis) 170/67 mmHg Concurrent Access: falseAV Fistula Upper Arm (Left) Arterial Sitting Heart Rate Pre-Dialysis 68 BPM Temperature Pre-Dialysis 97.7 degF DIALYSIS ORDER Dialysis Procedure Orders Type of Dialysis Procedure Order Order Date/Time Observations In-Center Hemodialysis Treatment 2024 Target Weight 61.5 kg Dialysate Flow Rate 500 mL/min Blood Flow Rate 450 mL/min Treatment Time 180 min(total) Max UF Rate 13 mL/kg/hr Base Sodium Dialysate Base Sodium 138 mE q/L dialysate_temp 36 C BiCarb Dialysate BiCarbonate 37 mEq/L Access Concurrent No Arterial Access AV Graft (Upper Arm (Left)) Venous Access AV Graft (Upper Arm (Left)) Arterial Needle Display NIPRO, JOSE FIP, 15 G x 1 , SHARP , TWIN Venous Needle NIPRO, TULIP, 15G x 1 , SHARP , TWIN Dialyzer Nipro Elisio 15H 126 4 [email or web address] Dialysate Bath Potassium Potassium 2 mEq /L Dialysate Bath Calcium Calcium 2.5 mEq/L Results Adequacy Description Draw Date Result/Unit Status Ref Range Result Comments Creatinine [Mass/volume] in Serum or Plasma 2024-05-31 19:42:19 5.35 mg/dL F 0.5-1.1 TOTAL HOURS/WEEK DIALYSIS 2024-05-17 17:01:23 8 hrs F VT (KT/V TX VOL) 2024-05-17 17:01:23 29.8 L F URR% 2024-05-17 17:01:23 74 % F AMPUTATE FACTOR 2024-05-17 17:01:23 0 F PATIENT AGE 2024-05-17 17:01:23 78 Years F nPCR 2024-05-17 17:01:23 1.27 G/KG/D F Total Kt/V 2024-05-17 17:01:23 1.56 F BLOOD FLOW-QWB 2024-05-17 17:01:23 366 F stdKT/V Total 2024-05-17 17:01:23 N/A F WEIGHT - PRE DAY 1 2024-05-17 17:01:23 62.9 kg F CURRENT KRU 2024-05-17 17:01:23 F VM (KT/V MEAN VOL) 2024-05-17 17:01:23 31.9 F BSA MIL[place] 2024-05-17 17:01:23 1.46 sq m F Residual kt/v 2024-05-17 17:01:23 F Dialyzer EDIN 2024-05-17 17:01:23 1264 Calc F KT/V PRESCRIBED 2024-05-17 17:01:23 2.25 F LENGTH OF DIALYSIS 2024-05-17 17:01:23 179 min F DIALYZER FLOW-QD 2024-05-17 17:01:23 500 mL/min F WEIGHT - POST DAY 1 2024-05-17 17:01:23 61.2 kg F HEIGHT IN INCHES 2024-05-17 17:01:23 55 Inches F Std Renal KT/V 2024-05-17 17:01:23 N/A F PRESCRIBED DAYS/WEEK 2024-05-17 17:01:23 3 Day/Wk F WEIGHT (KG) 2024-05-17 17:01:23 59 kg F spKt/V 2024-05-17 17:01:23 1.56 F TBW (Robin) 2024-05-17 17:01:23 27.93 Liters F eKt/V 2024-05-17 17:01:23 1.29 F stdKt/V (DIAL) 2024-05-17 17:01:23 N/A F Urea nitrogen [Mass/volume] in Serum or Plasma 2024-05-17 16:59:22 66 mg/dL F 9.0-23.0 Urea nitrogen [Mass/volume] in Serum or Plasma --post dialysis 2024-05-17 16:15:22 17 mg/dL F 9.0-23.0 Creatinine [Mass/volume] in Serum or Plasma 2024-04-26 16:21:14 5.61 mg/dL F 0.5-1.1 VM (KT/V MEAN VOL) 2024-04-12 23:59:17 32.6 F Total Kt/V 2024-04-12 23:59:17 1.34 F WEIGHT - PRE DAY 1 2024-04-12 23:59:17 62.3 kg F Residual kt/v 2024-04-12 23:59:17 F eKt/V 2024-04-12 23:59:17 1.08 F TBW (Robin) 2024-04-12 23:59:17 27.83 Liters F stdKT/V Total 2024-04-12 23:59:17 N/A F HEIGHT IN INCHES 2024-04-12 23:59:17 55 Inches F stdKt/V (DIAL) 2024-04-12 23:59:17 N/A F VT (KT/V TX VOL) 2024-04-12 23:59:17 32.2 L F PATIENT AGE 2024-04-12 23:59:17 78 Years F BLOOD FLOW-QWB 2024-04-12 23:59:17 449 F CURRENT KRU 2024-04-12 23:59:17 F PRESCRIBED DAYS/WEEK 2024-04-12 23:59:17 3 Day/Wk F BSA [place] 2024-04-12 23:59:17 1.46 sq m F AMPUTATE FACTOR 2024-04-12 23:59:17 0 F Std Renal KT/V 2024-04-12 23:59:17 N/A F Dialyzer EDIN 2024-04-12 23:59:17 1264 Calc F DIALYZER FLOW-QD 2024-04-12 23:59:17 500 mL/min F WEIGHT (KG) 2024-04-12 23:59:17 59 kg F LENGTH OF DIALYSIS 2024-04-12 23:59:17 152 min F spKt/V 2024-04-12 23:59:17 1.34 F KT/V PRESCRIBED 2024-04-12 23:59:17 1.91 F TOTAL HOURS/WEEK DIALYSIS 2024-04-12 23:59:17 8 hrs F nPCR 2024-04-12 23:59:17 1.06 G/KG/D F WEIGHT - POST DAY 1 2024-04-12 23:59:17 60.8 kg F URR% 2024-04-12 23:59:16 69 % F Urea nitrogen [Mass/volume] in Serum or Plasma --post dialysis 2024-04-12 23:57:22 18 mg/dL F 9.0-23.0 Urea nitrogen [Mass/volume] in Serum or Plasma 2024-04-12 23:41:26 59 mg/dL F 9.0-23.0 Creatinine [Mass/volume] in Serum or Plasma 2024-03-29 17:32:18 5.35 mg/dL F 0.5-1.1 Creatinine [Mass/volume] in Serum or Plasma 2023-03-24 15:46:30 5.52 mg/dL F 0.5-1.1 Creatinine [Mass/volume] in Serum or Plasma 2022-08-26 15:41:16 5.61 mg/dL F 0.5-1.1 Anemia Description Draw Date Result/Unit Status Ref Range Result Comments IRON SATURATION 2024-06-01 09:33:57 22 % F 16.0-46.0 TIBC 2024-06-01 09:33:57 231 ug/dL F 250.0-425.0 Ferritin [Mass/volume] in Serum or Plasma 2024-06-01 07:48:59 890 ng/mL F 10.0-291.0 Iron [Mass/volume] in Serum or Plasma 2024-06-01 06:10:07 50 ug/dL F 50.0-170.0 Iron binding capacity.unsaturated [Mass/volume] in Serum or Plasma 2024-06-01 06:10:07 181 ug/dL F 80.0-375.0 HCT CALC HGBX3 2024-05-31 23:28:26 34.5 % F 37.0-47.0 Erythrocytes [#/volume] in Blood by Automated count 2024-05-31 23:23:16 3.75 x 10^6 cells/uL F 3.85-5.2 Erythrocyte distribution width [Ratio] by Automated count 2024-05-31 23:23:16 16.2 % F 11.0-15.0 Hemoglobin [Mass/volume] in Blood 2024-05-31 23:23:16 11.5 g/dL F 12.0-16.0 MCH [Entitic mass] by Automated count 2024-05-31 23:23:16 30.8 pg F 25.9-34.2 MCHC [Mass/volume] by Automated count 2024-05-31 23:23:16 30.3 g/dL F 29.6-35.3 Hematocrit [Volume Fraction] of Blood by Automated count 2024-05-31 23:23:16 38.1 % F 37.0-47.0 MCV [Entitic volume] by Automated count 2024-05-31 23:23:16 101.7 fL F 80.0-100.0 Platelets [#/volume] in Blood by Automated count 2024-05-31 23:23:16 125 x 10^3 cells/uL F 140.0-450.0 HCT CALC HGBX3 2024-05-17 17:30:05 33.6 % F 37.0-47.0 Hemoglobin [Mass/volume] in Blood 2024-05-17 17:29:11 11.2 g/dL F 12.0-16.0 Ferritin [Mass/volume] in Serum or Plasma 2024-04-27 06:18:02 852 ng/mL F 10.0-291.0 IRON SATURATION 2024-04-27 05:33:10 16 % F 16.0-46.0 TIBC 2024-04-27 05:33:10 238 ug/dL F 250.0-425.0 Iron [Mass/volume] in Serum or Plasma 2024-04-27 05:26:41 38 ug/dL F 50.0-170.0 Iron binding capacity.unsaturated [Mass/volume] in Serum or Plasma 2024-04-27 05:26:41 200 ug/dL F 80.0-375.0 HCT CALC HGBX3 2024-04-27 03:17:41 32.1 % F 37.0-47.0 MCH [Entitic mass] by Automated count 2024-04-27 03:16:12 30.9 pg F 25.9-34.2 Hematocrit [Volume Fraction] of Blood by Automated count 2024-04-27 03:16:12 35.2 % F 37.0-47.0 MCV [Entitic volume] by Automated count 2024-04-27 03:16:12 101.5 fL F 80.0-100.0 Erythrocytes [#/volume] in Blood by Automated count 2024-04-27 03:16:10 3.47 x 10'6 cells/uL F 3.85-5.2 Erythrocyte distribution width [Ratio] by Automated count 2024-04-27 03:16:10 16.5 % F 11.0-15.0 Hemoglobin [Mass/volume] in Blood 2024-04-27 03:16:10 10.7 g/dL F 12.0-16.0 MCHC [Mass/volume] by Automated count 2024-04-27 03:16:10 30.4 g/dL F 29.6-35.3 Platelets [#/volume] in Blood by Automated count 2024-04-27 03:16:10 100 x 10^3 cells/uL F 140.0-450.0 HCT CALC HGBX3 2024-04-13 07:16:46 31.5 % F 37.0-47.0 Hemoglobin [Mass/volume] in Blood 2024-04-13 07:06:23 10.5 g/dL F 12.0-16.0 Ferritin [Mass/volume] in Serum or Plasma 2024-03-30 08:21:03 856 ng/mL F 10.0-291.0 IRON SATURATION 2024-03-30 04:53:06 27 % F 16.0-46.0 TIBC 2024-03-30 04:53:06 231 ug/dL F 250.0-425.0 Iron [Mass/volume] in Serum or Plasma 2024-03-30 04:50:57 63 ug/dL F 50.0-170.0 Iron binding capacity.unsaturated [Mass/volume] in Serum or Plasma 2024-03-30 04:50:57 168 ug/dL F 80.0-375.0 HCT CALC HGBX3 2024-03-29 20:44:53 31.5 % F 37.0-47.0 Erythrocyte distribution width [Ratio] by Automated count 2024-03-29 20:44:09 17.4 % F 11.0-15.0 Hemoglobin [Mass/volume] in Blood 2024-03-29 20:44:09 10.5 g/dL F 12.0-16.0 Hematocrit [Volume Fraction] of Blood by Automated count 2024-03-29 20:44:09 33.1 % F 37.0-47.0 Platelets [#/volume] in Blood by Automated count 2024-03-29 20:44:09 108 x 10^3 cells/uL F 140.0-450.0 Erythrocytes [#/volume] in Blood by Automated count 2024-03-29 20:44:08 3.34 x 10'6 cells/uL F 3.85-5.2 MCH [Entitic mass] by Automated count 2024-03-29 20:44:08 31.3 pg F 25.9-34.2 MCHC [Mass/volume] by Automated count 2024-03-29 20:44:08 31.6 g/dL F 29.6-35.3 MCV [Entitic volume] by Automated count 2024-03-29 20:44:08 99.2 fL F 80.0-100.0 HCT CALC HGBX3 2023-11-17 16:19:07 31.2 % F 37.0-47.0 Hemoglobin [Mass/volume] in Blood 2023-11-17 16:18:37 10.4 g/dL F 12.0-16.0 IRON SATURATION 2023-03-25 05:18:41 13 % F 16.0-46.0 TIBC 2023-03-25 05:18:41 220 ug/dL F 250.0-425.0 Iron [Mass/volume] in Serum or Plasma 2023-03-25 05:15:01 28 ug/dL F 50.0-170.0 Iron binding capacity.unsaturated [Mass/volume] in Serum or Plasma 2023-03-25 05:15:01 192 ug/dL F 80.0-375.0 Ferritin [Mass/volume] in Serum or Plasma 2023-03-25 03:16:31 690 ng/mL F 10.0-291.0 HCT CALC HGBX3 2023-03-24 15:28:16 30.6 % F 37.0-47.0 Erythrocytes [#/volume] in Blood by Automated count 2023-03-24 15:27:33 3.2 x 10'6 cells/uL F 3.85-5.2 Erythrocyte distribution width [Ratio] by Automated count 2023-03-24 15:27:33 14.8 % F 11.0-15.0 Hemoglobin [Mass/volume] in Blood 2023-03-24 15:27:33 10.2 g/dL F 12.0-16.0 MCH [Entitic mass] by Automated count 2023-03-24 15:27:33 32 pg F 25.9-34.2 Hematocrit [Volume Fraction] of Blood by Automated count 2023-03-24 15:27:33 30.9 % F 37.0-47.0 MCHC [Mass/volume] by Automated count 2023-03-24 15:27:33 33.1 g/dL F 29.6-35.3 MCV [Entitic volume] by Automated count 2023-03-24 15:27:33 96.7 fL F 80.0-100.0 Platelets [#/volume] in Blood by Automated count 2023-03-24 15:27:33 136 x 10^3 cells/uL F 140.0-450.0 HCT CALC HGBX3 2022-08-26 18:25:02 30.3 % F 37.0-47.0 Erythrocytes [#/volume] in Blood by Automated count 2022-08-26 18:24:14 3.11 x 10'6 cells/uL F 4.2-5.4 Erythrocyte distribution width [Ratio] by Automated count 2022-08-26 18:24:14 14.1 % F 11.0-15.0 Hemoglobin [Mass/volume] in Blood 2022-08-26 18:24:14 10.1 g/dL F 12.0-16.0 MCH [Entitic mass] by Automated count 2022-08-26 18:24:14 32.7 pg F 27.0-31.0 MCHC [Mass/volume] by Automated count 2022-08-26 18:24:14 32.1 g/dL F 32.0-36.0 Hematocrit [Volume Fraction] of Blood by Automated count 2022-08-26 18:24:14 31.6 % F 37.0-47.0 MCV [Entitic volume] by Automated count 2022-08-26 18:24:14 101.8 fL F 80.0-100.0 Platelets [#/volume] in Blood by Automated count 2022-08-26 18:24:14 135 x 10^3 cells/uL F 150.0-400.0 Reticulocytes/100 erythrocytes in Blood by Automated count 2022-08-12 17:07:12 2.36 % F 0.8-2.1 FluidBP Description Draw Date Result/Unit Status Ref Range Result Comments Sodium [Moles/volume] in Serum or Plasma 2024-06-01 06:10:07 139 mEq/L F 132.0-146.0 Sodium [Moles/volume] in Serum or Plasma 2024-04-27 05:26:41 137 mEq/L F 132.0-146.0 Sodium [Moles/volume] in Serum or Plasma 2024-03-30 04:50:57 138 mEq/L F 132.0-146.0 Sodium [Moles/volume] in Serum or Plasma 2023-03-24 15:46:30 140 mEq/L F 132.0-146.0 Sodium [Moles/volume] in Serum or Plasma 2022-08-26 15:41:16 138 mEq/L F 132.0-146.0 General Description Draw Date Result/Unit Status Ref Range Result Comments Chloride [Moles/volume] in Serum or Plasma 2024-06-01 06:10:07 101 mEq/L F 99.0-109.0 Aspartate aminotransferase [Enzymatic activity/volume] in Serum or Plasma 2024-05-31 19:42:19 33 U/L F 0.0-33.0 Alanine aminotransferase [Enzymatic activity/volume] in Serum or Plasma 2024-05-31 19:42:19 24 U/L F 10.0-49.0 Chloride [Moles/volume] in Serum or Plasma 2024-04-27 05:26:41 98 mEq/L F 99.0-109.0 Aspartate aminotransferase [Enzymatic activity/volume] in Serum or Plasma 2024-04-26 16:21:14 39 U/L F 0.0-33.0 Alanine aminotransferase [Enzymatic activity/volume] in Serum or Plasma 2024-04-26 16:21:14 29 U/L F 10.0-49.0 Chloride [Moles/volume] in Serum or Plasma 2024-03-30 04:50:57 101 mEq/L F 99.0-109.0 Aluminum [Mass/volume] in Serum or Plasma 2024-03-29 19:11:06 10 ug/L F 0.0-9.0 Aspartate aminotransferase [Enzymatic activity/volume] in Serum or Plasma 2024-03-29 17:32:16 38 U/L F 0.0-33.0 Alanine aminotransferase [Enzymatic activity/volume] in Serum or Plasma 2024-03-29 17:32:16 26 U/L F 10.0-49.0 Aluminum [Mass/volume] in Serum or Plasma 2023-03-24 19:29:22 10 ug/L F 0.0-9.0 Aspartate aminotransferase [Enzymatic activity/volume] in Serum or Plasma 2023-03-24 15:46:30 33 U/L F 0.0-33.0 Alanine aminotransferase [Enzymatic activity/volume] in Serum or Plasma 2023-03-24 15:46:30 13 U/L F 10.0-49.0 Chloride [Moles/volume] in Serum or Plasma 2023-03-24 15:46:30 102 mEq/L F 99.0-109.0 Aspartate aminotransferase [Enzymatic activity/volume] in Serum or Plasma 2022-08-26 15:41:16 39 U/L F 0.0-33.0 Chloride [Moles/volume] in Serum or Plasma 2022-08-26 15:41:16 99 mEq/L F 99.0-109.0 Alanine aminotransferase [Enzymatic activity/volume] in Serum or Plasma 2022-08-12 23:28:11 11 U/L F 10.0-49.0 InfectionVaccination Description Draw Date Result/Unit Status Ref Range Result Comments Monocytes/100 leukocytes in Blood by Automated count 2024-05-31 23:23:16 6.2 % F Neutrophils/100 leukocytes in Blood by Automated count 2024-05-31 23:23:16 78.6 % F Lymphocytes/100 leukocytes in Blood by Automated count 2024-05-31 23:23:16 12.7 % F Basophils/100 leukocytes in Blood by Automated count 2024-05-31 23:23:16 0.8 % F Eosinophils/100 leukocytes in Blood by Automated count 2024-05-31 23:23:16 1.8 % F Leukocytes [#/volume] in Blood by Automated count 2024-05-31 23:23:16 5.4 x 10^3 cells/uL F 4.0-11.0 Basophils [#/volume] in Blood by Automated count 2024-05-31 23:23:16 43 Cells/uL F 0.0-400.0 Eosinophils [#/volume] in Blood by Automated count 2024-05-31 23:23:16 97 Cells/uL F 0.0-700.0 Monocytes [#/volume] in Blood by Automated count 2024-05-31 23:23:16 335 Cells/uL F 0.0-1100.0 Lymphocytes [#/volume] in Blood by Automated count 2024-05-31 23:23:16 686 Cells/uL F 620.0-3660.0 Neutrophils [#/volume] in Blood by Automated count 2024-05-31 23:23:16 4244 Cells/uL F 2000.0-8800.0 Eosinophils/100 leukocytes in Blood by Automated count 2024-04-27 03:16:10 1.4 % F Basophils/100 leukocytes in Blood by Automated count 2024-04-27 03:16:10 0.2 % F Neutrophils/100 leukocytes in Blood by Automated count 2024-04-27 03:16:10 81.5 % F Lymphocytes/100 leukocytes in Blood by Automated count 2024-04-27 03:16:10 12 % F Monocytes/100 leukocytes in Blood by Automated count 2024-04-27 03:16:10 4.9 % F Leukocytes [#/volume] in Blood by Automated count 2024-04-27 03:16:10 6.1 x 10^3 cells/uL F 4.0-11.0 Basophils [#/volume] in Blood by Automated count 2024-04-27 03:16:10 12 Cells/uL F 0.0-400.0 Eosinophils [#/volume] in Blood by Automated count 2024-04-27 03:16:10 85 Cells/uL F 0.0-700.0 Monocytes [#/volume] in Blood by Automated count 2024-04-27 03:16:10 298 Cells/uL F 0.0-1100.0 Lymphocytes [#/volume] in Blood by Automated count 2024-04-27 03:16:10 730 Cells/uL F 620.0-3660.0 Neutrophils [#/volume] in Blood by Automated count 2024-04-27 03:16:10 4955 Cells/uL F 2000.0-8800.0 Basophils/100 leukocytes in Blood by Automated count 2024-03-29 20:44:09 0.2 % F Eosinophils [#/volume] in Blood by Automated count 2024-03-29 20:44:09 72 Cells/uL F 0.0-700.0 Monocytes [#/volume] in Blood by Automated count 2024-03-29 20:44:09 221 Cells/uL F 0.0-1100.0 Neutrophils [#/volume] in Blood by Automated count 2024-03-29 20:44:09 4099 Cells/uL F 2000.0-8800.0 Neutrophils/100 leukocytes in Blood by Automated count 2024-03-29 20:44:08 79.6 % F Monocytes/100 leukocytes in Blood by Automated count 2024-03-29 20:44:08 4.3 % F Eosinophils/100 leukocytes in Blood by Automated count 2024-03-29 20:44:08 1.4 % F Lymphocytes/100 leukocytes in Blood by Automated count 2024-03-29 20:44:08 14.6 % F Leukocytes [#/volume] in Blood by Automated count 2024-03-29 20:44:08 5.2 x 10^3 cells/uL F 4.0-11.0 Basophils [#/volume] in Blood by Automated count 2024-03-29 20:44:08 10 Cells/uL F 0.0-400.0 Lymphocytes [#/volume] in Blood by Automated count 2024-03-29 20:44:08 752 Cells/uL F 620.0-3660.0 Basophils [#/volume] in Blood by Automated count 2023-03-24 15:27:34 6 Cell/uL F 0.0-400.0 Eosinophils/100 leukocytes in Blood by Automated count 2023-03-24 15:27:33 4.5 % F Monocytes/100 leukocytes in Blood by Automated count 2023-03-24 15:27:33 4.2 % F Neutrophils/100 leukocytes in Blood by Automated count 2023-03-24 15:27:33 76.1 % F Basophils/100 leukocytes in Blood by Automated count 2023-03-24 15:27:33 0.1 % F Lymphocytes/100 leukocytes in Blood by Automated count 2023-03-24 15:27:33 15.1 % F Leukocytes [#/volume] in Blood by Automated count 2023-03-24 15:27:33 5.7 x 10^3 cells/uL F 4.0-11.0 Eosinophils [#/volume] in Blood by Automated count 2023-03-24 15:27:33 258 Cell/uL F 0.0-700.0 Monocytes [#/volume] in Blood by Automated count 2023-03-24 15:27:33 241 Cell/uL F 0.0-1100.0 Lymphocytes [#/volume] in Blood by Automated count 2023-03-24 15:27:33 865 Cell/uL F 620.0-3660.0 Neutrophils [#/volume] in Blood by Automated count 2023-03-24 15:27:33 4361 Cell/uL F 2000.0-8800.0 Lymphocytes/100 leukocytes in Blood by Automated count 2022-08-26 18:24:14 21.9 % F Basophils/100 leukocytes in Blood by Automated count 2022-08-26 18:24:14 0.2 % F Monocytes/100 leukocytes in Blood by Automated count 2022-08-26 18:24:14 4.5 % F Neutrophils/100 leukocytes in Blood by Automated count 2022-08-26 18:24:14 70.1 % F Eosinophils/100 leukocytes in Blood by Automated count 2022-08-26 18:24:14 3.3 % F Leukocytes [#/volume] in Blood by Automated count 2022-08-26 18:24:14 4.2 x 10^3 cells/uL F 4.5-11.0 Basophils [#/volume] in Blood by Automated count 2022-08-26 18:24:14 8.38 Cell/uL F 0.0-400.0 Eosinophils [#/volume] in Blood by Automated count 2022-08-26 18:24:14 138.27 Cell/uL F 0.0-700.0 Monocytes [#/volume] in Blood by Automated count 2022-08-26 18:24:14 188.55 Cell/uL F 0.0-1100.0 Neutrophils [#/volume] in Blood by Automated count 2022-08-26 18:24:14 2937.19 Cell/uL F 2000.0-8800.0 Lymphocytes [#/volume] in Blood by Automated count 2022-08-26 18:24:14 917.61 Cell/uL F 1100.0-4800.0 Phosphate [Mass/volume] in Urine MineralBone Disorder Description Draw Date Result/Unit Status Ref Range Result Comments Alkaline phosphatase [Enzymatic activity/volume] in Serum or Plasma 2024-05-31 19:42:19 176 U/L F 46.0-116.0 CA CORRECTED 2024-05-17 21:56:34 9.2 mg/dL F CA*PO4 CORRCTD 2024-05-17 21:54:42 76.7 Calc F 21.0-53.0 CA/PHOS PRODUCT 2024-05-17 21:54:42 74.7 Calc F 21.0-53.0 Phosphate [Mass/volume] in Serum or Plasma 2024-05-17 19:57:30 8.3 mg/dL F 2.4-5.1 Calcium [Mass/volume] in Serum or Plasma 2024-05-17 19:57:30 9 mg/dL F 8.7-10.4 Parathyrin.intact [Mass/volume] in Serum or Plasma 2024-05-17 17:34:14 264 pg/mL F 18.0-80.0 Alkaline phosphatase [Enzymatic activity/volume] in Serum or Plasma 2024-04-26 16:21:14 153 U/L F 46.0-116.0 CA CORRECTED 2024-04-13 09:06:54 8.9 mg/dL F CA/PHOS PRODUCT 2024-04-13 09:06:06 66.1 Calc F 21.0-53.0 CA*PO4 CORRCTD 2024-04-13 09:06:06 67.3 Calc F 21.0-53.0 Calcium [Mass/volume] in Serum or Plasma 2024-04-13 08:04:16 8.7 mg/dL F 8.7-10.4 Parathyrin.intact [Mass/volume] in Serum or Plasma 2024-04-13 00:44:19 409 pg/mL F 18.0-80.0 Phosphate [Mass/volume] in Serum or Plasma 2024-04-12 23:41:26 7.6 mg/dL F 2.4-5.1 Alkaline phosphatase [Enzymatic activity/volume] in Serum or Plasma 2024-03-29 17:32:16 153 U/L F 46.0-116.0 Parathyrin.intact [Mass/volume] in Serum or Plasma 2023-03-25 03:16:31 215 pg/mL F 18.0-80.0 Alkaline phosphatase [Enzymatic activity/volume] in Serum or Plasma 2023-03-24 15:46:30 100 U/L F 46.0-116.0 Alkaline phosphatase [Enzymatic activity/volume] in Serum or Plasma 2022-08-26 15:41:16 73 U/L F 46.0-116.0 CA CORRECTED 2022-08-13 07:09:58 9.7 mg/dL F CA/PHOS PRODUCT 2022-08-13 06:48:33 55.7 Calc F 21.0-53.0 CA*PO4 CORRCTD 2022-08-13 06:48:33 56.3 Calc F 21.0-53.0 Calcium [Mass/volume] in Serum or Plasma 2022-08-13 06:22:28 9.6 mg/dL F 8.7-10.4 Parathyrin.intact [Mass/volume] in Serum or Plasma 2022-08-13 01:15:15 85 pg/mL F 18.0-80.0 Phosphate [Mass/volume] in Serum or Plasma 2022-08-12 23:28:11 5.8 mg/dL F 2.4-5.1 Nutrition Description Draw Date Result/Unit Status Ref Range Result Comments Potassium [Moles/volume] in Serum or Plasma 2024-06-01 06:10:07 4.4 mEq/L F 3.5-5.5 GLOBULIN 2024-05-31 19:43:12 2.9 g/dL F 0.9-5.0 A/G RATIO 2024-05-31 19:43:12 1.2 Calc F 1.0-2.5 Albumin [Mass/volume] in Serum or Plasma by Bromocresol green (BCG) dye binding method 2024-05-31 19:42:19 3.6 g/dL F 3.4-4.8 Protein [Mass/volume] in Serum or Plasma 2024-05-31 19:42:19 6.5 g/dL F 5.7-8.2 Bicarbonate [Moles/volume] in Serum or Plasma 2024-05-31 19:42:19 29 mEq/L F 20.0-31.0 Glucose [Mass/volume] in Serum or Plasma 2024-05-31 19:42:19 133 mg/dL F 70.0-99.0 Lactate dehydrogenase [Enzymatic activity/volume] in Serum or Plasma 2024-05-31 19:42:19 161 U/L F 120.0-246.0 Potassium [Moles/volume] in Serum or Plasma 2024-04-27 05:26:41 4.7 mEq/L F 3.5-5.5 GLOBULIN 2024-04-26 16:22:26 2.9 g/dL F 0.9-5.0 A/G RATIO 2024-04-26 16:22:26 1.3 Calc F 1.0-2.5 Albumin [Mass/volume] in Serum or Plasma by Bromocresol green (BCG) dye binding method 2024-04-26 16:21:14 3.7 g/dL F 3.4-4.8 Protein [Mass/volume] in Serum or Plasma 2024-04-26 16:21:14 6.6 g/dL F 5.7-8.2 Bicarbonate [Moles/volume] in Serum or Plasma 2024-04-26 16:21:14 28 mEq/L F 20.0-31.0 Glucose [Mass/volume] in Serum or Plasma 2024-04-26 16:21:14 192 mg/dL F 70.0-99.0 Lactate dehydrogenase [Enzymatic activity/volume] in Serum or Plasma 2024-04-26 16:21:14 161 U/L F 120.0-246.0 Potassium [Moles/volume] in Serum or Plasma 2024-03-30 04:50:57 4.7 mEq/L F 3.5-5.5 GLOBULIN 2024-03-29 17:32:57 3.1 g/dL F 0.9-5.0 A/G RATIO 2024-03-29 17:32:57 1.2 Calc F 1.0-2.5 Protein [Mass/volume] in Serum or Plasma 2024-03-29 17:32:18 6.9 g/dL F 5.7-8.2 Albumin [Mass/volume] in Serum or Plasma by Bromocresol green (BCG) dye binding method 2024-03-29 17:32:16 3.8 g/dL F 3.4-4.8 Bicarbonate [Moles/volume] in Serum or Plasma 2024-03-29 17:32:16 29 mEq/L F 20.0-31.0 Glucose [Mass/volume] in Serum or Plasma 2024-03-29 17:32:16 200 mg/dL F 70.0-99.0 Lactate dehydrogenase [Enzymatic activity/volume] in Serum or Plasma 2024-03-29 17:32:16 149 U/L F 120.0-246.0 GLOBULIN 2023-03-24 15:46:43 2.8 g/dL F 0.9-5.0 A/G RATIO 2023-03-24 15:46:43 1.3 Calc F 1.0-2.5 Albumin [Mass/volume] in Serum or Plasma by Bromocresol green (BCG) dye binding method 2023-03-24 15:46:30 3.7 g/dL F 3.4-4.8 Potassium [Moles/volume] in Serum or Plasma 2023-03-24 15:46:30 4.2 mEq/L F 3.5-5.5 Protein [Mass/volume] in Serum or Plasma 2023-03-24 15:46:30 6.5 g/dL F 5.7-8.2 Bicarbonate [Moles/volume] in Serum or Plasma 2023-03-24 15:46:30 28 mEq/L F 20.0-31.0 Glucose [Mass/volume] in Serum or Plasma 2023-03-24 15:46:30 104 mg/dL F 70.0-99.0 Lactate dehydrogenase [Enzymatic activity/volume] in Serum or Plasma 2023-03-24 15:46:30 167 U/L F 120.0-246.0 GLOBULIN 2022-08-26 15:41:28 2.8 g/dL F 0.9-5.0 A/G RATIO 2022-08-26 15:41:28 1.3 Calc F 1.0-2.5 Albumin [Mass/volume] in Serum or Plasma by Bromocresol green (BCG) dye binding method 2022-08-26 15:41:16 3.6 g/dL F 3.4-4.8 Potassium [Moles/volume] in Serum or Plasma 2022-08-26 15:41:16 4.6 mEq/L F 3.5-5.5 Protein [Mass/volume] in Serum or Plasma 2022-08-26 15:41:16 6.4 g/dL F 5.7-8.2 Bicarbonate [Moles/volume] in Serum or Plasma 2022-08-26 15:41:16 29 mEq/L F 20.0-31.0 Glucose [Mass/volume] in Serum or Plasma 2022-08-26 15:41:16 152 mg/dL F 70.0-99.0 Lactate dehydrogenase [Enzymatic activity/volume] in Serum or Plasma 2022-08-26 15:41:16 148 U/L F 120.0-246.0 Encounters No encounter information to report Immunizations Ordered Immunization Name Filled Immunization Name Date Status Comments Refusal Reason Influenza, high-dose, quadrivalent, PF 2024-02-08 18:29:22 TST-PPD intradermal 2023-12-28 17:20:00 pneumococcal polysaccharide PPV23 2023-02-25 17:40:00 TST-PPD intradermal 2022-12-13 17:43:00 Covid-19 Vaccination 2020-07-24 08:00:00 Covid-19 Vaccination 2020-07-04 08:00:00 Plan of Treatment Planned Activity Provider Planned Date Details Commen ts Diagnostic Test Pending Patel Freeman 2022-08-08 14:36:03 Glucose [Mass/volume] in Serum or Plasma [code = 2345-7] Diagnostic Test Pending Patel Freeman 2023-05-21 06:00:00 Hemoglobin [Mass/volume] in Blood [code = 718-7] Diagnostic Test Pending Patel Freeman 2024-01-15 06:31:27 Ferritin [Mass/volume] in Serum or Plasma [code = 2276-4] Diagnostic Test Pending Patel Freeman 2022-07-30 06:24:33 Alanine aminotransferase [Enzymatic activity/volume] in Serum or Plasma [code = 1742-6] [facility] 2022-[facility] 06:25:03 Parathyrin.intact [Mass/volume] in Serum or Plasma [code = 2731-8] Diagnostic [facility] 2022-08-08 14:37:42 Sodium [Moles/volume] in Serum or Plasma [code = 2951-2] Diagnostic Test [facility] 2022-08-08 14:35:32 Aluminum [Mass/volume] in Serum or Plasma [code = 5574-9] Diagnostic Test Pending [facility] 2022-08-08 14:35:25 Albumin [Mass/volume] in Serum or Plasma by Bromocresol green (BCG) dye binding method [code = 71787-2] Diagnostic Test [facility] 2022-08-08 14:35:50 Creatinine [Mass/volume] in Serum or Plasma [code = 2160-0] Diagnostic Test Pending Patel Melquiades [facility] 2024-06-11 20:03:31 In-Center Hemodialysis Treatment [code = LPZ377] Diet [facility] August 02, 2022 Diet Calorie 30 kcal/kg Fluid Value 1000 mL/d Phosphorus Value 700 mg/d Potassium Value 2000 mg/d Protein Value 1.2 gm/kg Sodium Value 2000 mg/d Calculated Weight 54 kg
--- OUTSIDE RECORDS SUMMARY | 2024-06-13 13:54 | XMS_ITS | Encounter Summary ---
Author Organization [facility] Health Address [address] [place] [address] Care Team Providers Care Avaya Engineer Name Role Phone Shahid Powell MD Primary Care Provider + Encounter Details Date Type Department Care Team (Late Contact Info) Description 09/27/2018 [facility] Outpatient Visit [facility] [address] [place] [address] [place] [address] [facility] [address] [place] [id number] Social History Tobacco Use Types Packs/Day [...] Upcoming Encounters Date Type Department Care Team ([facility] Contact Info) Description 07/17/2024 2:45 PM CDT Appointment [facility] Health Vascular Services [address] [facility] [place], [address] [place] [address] [place] [address] [facility] [address] [place] [address] [place] [address] [address] [place] [address] [facility] [address] [place] [address] Calvin Lynne MD [address] [place] [address] Ronald Rosas MD [address] [place] [address] [place] [address] [facility] [address] [place] [id number] documented as of this encounter Visit Diagnoses Not on filedocumented in this encounter Care Teams Avaya Engineer Relationship Specialty Start Date End Date Shahid Powell MD [address] [facility] [address] [place] [address] PCP - General 10/05/10 documented as of this encounter
--- OUTSIDE RECORDS SUMMARY | 2024-06-13 13:54 | XMS_ITS | Clinical Summary ---
Author Organization [facility] Address [address] [place] [address] Care Team Providers Care Sustainable Systems Analyst Name Role Phone Unavailable Primary Care Provider [...] (163 lb 2.3 oz) 07/11/2018 9:00 AM INTELLIGENCE ENGINEER Height 139.7 cm (4' 7 ) 06/29/2018 2:21 PM INTELLIGENCE ENGINEER Body Mass Index 37.92 06/29/2018 2:21 PM INTELLIGENCE ENGINEER Plan of Treatment Not on file Advance Directives * Full Resuscitation (Latest Code Status on File) Date Activated Date Inactivated Comments 06/17/2018 11:21 AM 07/16/2018 11:52 PM * Full Resuscitation Date Activated Date Inactivated Comments 06/17/2018 5:54 AM 06/17/2018 11:21 AM
[2024-06-13 14:03] LABS: Troponin I 0.402 ng/mL (0.000-0.034)
[2024-06-13 14:05] LABS: NT Pro B Type Natriuretic Pept > 30000 pg/mL (19.9-100)
[2024-06-13 14:06] LABS: Influenza A QL RT-PCR Positive (Negative); Influenza B QL RT-PCR Negative (Negative); RSV RNA, RT-PCR Negative (Negative); SARS-CoV-2 RNA PCR Positive (Negative)
[2024-06-13 14:15] LABS: Band Neutrophils Percent 9 % (0-6); Basophils Absolute Manual 0.06 K/mm3 (0.0-0.1); Basophils Percent Manual 2 % (0-1); Lymphocytes Absolute Manual 0.33 K/mm3 (1.1-4.5); Monocytes Absolute Manual 0.12 K/mm3 (0.1-0.90); Monocytes Percent Manual 4 % (3-9); Neutrophils Absolute Manual 2.49 K/mm3 (1.7-7.2); Neutrophils Percent Manual 74 % (46-73); Platelet Estimate Decreased (Adequate); Total Cells Counted 100
[2024-06-13 14:16] LABS: Schistocytes None Seen
[2024-06-13 14:17] LABS: Hypochromasia 1+
[2024-06-13] MEDS: AZITHROMYCIN 500 MG/NS 250 ML 500 MG/250 ML BAG 250 MG IVPB (18:31)
--- OUTSIDE RECORDS SUMMARY | 2024-06-13 18:47 | XMS_ITS | Referral Summary ---
Author Organization [facility] Address [address] [facility] [place] [address] Care Team Providers Care Albacore Fishing Boat Crewman Name Role Phone Shahid Powell MD Primary Care Provider + Source Comments [facility],non-capital region medical center Affiliates and Associated Physician Practices is amultiple site organization consisting of ambulatory clinics and hospital sitesin [place], [place], [place] and [place]. This disclosure is being madepursuant to the Care Everywhere program and may not contain all information available regarding this patient. Last updated 18.[facility] Encounters Date Type Department Care Team Description 03/20/2024 Travel 03/20/2024 1:32 PM [employer] SALES [employer] MANAGEMENT - 03/20/2024 11:59 PM [employer] SALES [employer] MANAGEMENT Hospital Encounter [facility] Vascular Services [id number] [place] [address], [place] [id number] Lucio Singh MD Javed, DO Richard Fung [...] Also one each snack 09/21/2020 Active B Bwpprgp-F-Eneqr Acid (TRIPHROCAPS) 1 MG CAPS 10/19/2020 Active [...] bedtime Active Probiotic Product (TRUBIOTICS DIGEST + Nor1 HEALTH PO) Take 1 tablet by mouth [...] Comments Blood Pressure 141/80 03/20/2024 2:25 PM BRIDAL SERVICE SALES AND MANAGEMENT Pulse 93 03/20/2024 2:25 PM BRIDAL SERVICE SALES AND MANAGEMENT Temperature 36.6 C (97.8 F) 03/20/2024 1:47 PM BRIDAL SERVICE SALES AND MANAGEMENT Respiratory Rate 10 03/20/2024 2:25 PM BRIDAL SERVICE SALES AND MANAGEMENT Oxygen Saturation 100% 03/20/2024 2:25 PM BRIDAL SERVICE SALES AND MANAGEMENT Inhaled Oxygen Concentration - - Weight 61.2 kg (135 lb) 03/20/2024 1:47 PM BRIDAL SERVICE SALES AND MANAGEMENT Height 139.7 cm (4' 7 ) 03/20/2024 1:47 PM BRIDAL SERVICE SALES AND MANAGEMENT Body Mass Index 31.38 03/20/2024 1:47 PM BRIDAL SERVICE SALES AND MANAGEMENT Functional Status Functional Status Response Date of [...] Description 07/17/2024 2:45 PM CDT Appointment [facility] Health Vascular Services [address] [facility], [address] [place] [address] [place] [address] [facility] [address] [place] [address] [place] [address] [facility] [address] [place] [address] [place] [address] [facility] [address] [place] [address] Calvin Lynne MD [address] [place] [address] Ronald Rosas MD [address] [place] [address] [place] [address] [address] Medical Devices Implanted Type Area Line Maintainer Device Identifier Shelf Expiration Date Model / Serial / Lot Graft Vasc 4-7mm 40cm Grtx Std Wl Tpr Ln - [id number] Implanted:Qty: 1 on 10/02/2019 by Lucio Singh MD at [facility] Left: Arm [employer] 12/03/2023 [id number] / [id number] / Procedures Procedure Name Priority Date/Time Associated Diagnosis Comments CARDIAC RHYTHM STRIP ORDER 03/21/2024 6:24 PM BRIDAL SERVICE SALES AND MANAGEMENT IR ANGIO AV SHUNT IMAGING Routine 03/20/2024 2:18 PM BRIDAL SERVICE SALES AND MANAGEMENT Encounter regarding vascular access for dialysis for end-stage renal disease (HCC) from Last 3 Months Results * CARDIAC RHYTHM STRIP ORDER (03/21/2024 6:24 PM BRIDAL SERVICE SALES AND MANAGEMENT) Narrative 03/21/2024 6:24 PM BRIDAL SERVICE SALES AND MANAGEMENT Ordered by an unspecified provider. Scanned Document CARDIAC SERVICES ORD ERABLES * IR ANGIO AV SHUNT IMAGING (03/20/2024 2:18 PM BRIDAL SERVICE SALES AND MANAGEMENT) Anatomical Region Laterality Modality Lower Extremity, Upper Extremity, Chest X-Ray Angiography Narrative 03/20/2024 2:23 PM BRIDAL SERVICE SALES AND MANAGEMENT Calvin Lynne MD 03/20/2024 2:25 PM Surgeon: [...] central venous structures are unremarkable. A 6 Cambodian sheath was introduced and angioplasty of the venous anastomosis was performed using an 8 mm x 4 cm Conquest balloon. Reflux injection during balloon inflation demonstrated unremarkable arterial anastomosis. Contrast injection after angioplasty demonstrated no significant improvement at the stenosis. Subsequently the sheath was exchanged for an 8 Cambodian sheath. A 8 mm x 5 cm [...] Documents on File Type Date Recorded Patient Transport Aide Expl anation Adv Directive/Living Will/POA 10/05/2018 9:04 PM * Full Code (Latest Code Status on File) Date Activated Date Inactivated Comments 10/02/2019 6:22 PM 10/07/2019 8:17 PM Care Teams Albacore Fishing Boat Crewman Relationship Specialty Start Date End Date Shahid Powell MD [address] [place] [address] PCP - General 10/05/10
--- OUTSIDE RECORDS SUMMARY | 2024-06-13 18:47 | XMS_ITS | Clinical Summary ---
Author Organization [facility] Address [address] [facility] [place] [address] Care Team Providers Care Nuisance Wildlife Trapper Name Role Phone Shahid Powell MD Primary Care Provider + Source Comments [facility],non-owned Affiliates and Associated Physician Practices is amultiple site organization consisting of ambulatory clinics and hospital sitesin [place], [place], [place] and [place]. This disclosure is being madepursuant to the Care Everywhere program and may not contain all information available regarding this patient. Last updated 18.[facility] Allergies Active Allergy Reactions Criticality Noted Date [...] Also one each snack 09/21/2020 Active B Irozljq-Q-Jfxmi Acid (TRIPHROCAPS) 1 MG CAPS 10/19/2020 Active [...] Department Care Team Description 03/20/2024 1:32 PM PST SUPERVISOR - 03/20/2024 11:59 PM PST SUPERVISOR Hospital Encounter [facility] Vascular Services [id number] [place] [address], [address] [place] [address] Lucio Singh MD Javed, Marnie Espinal, Marco [...] Comments Blood Pressure 141/80 03/20/2024 2:25 PM PST SUPERVISOR Pulse 93 03/20/2024 2:25 PM PST SUPERVISOR Temperature 36.6 C (97.8 F) 03/20/2024 1:47 PM PST SUPERVISOR Respiratory Rate 10 03/20/2024 2:25 PM PST SUPERVISOR Oxygen Saturation 100% 03/20/2024 2:25 PM PST SUPERVISOR Inhaled Oxygen Concentration - - Weight 61.2 kg (135 lb) 03/20/2024 1:47 PM PST SUPERVISOR Height 139.7 cm (4' 7 ) 03/20/2024 1:47 PM PST SUPERVISOR Body Mass Index 31.38 03/20/2024 1:47 PM PST SUPERVISOR Plan of Treatment Upcoming Encounters Date Type Department Care Team (Late st Contact Info) Description 07/17/2024 2:45 PM CDT Appointment [facility] Health Vascular Services [address] [facility], [address] [place] [address] [place] [address] [facility] [address] [place] [address] [place] [address] [place] [address] [place] [address] [facility] [address] [place] [address] Calvin Lynne MD [address] [place] [address] Ronald Rosas MD [address] [place] [address] [place] [address] [facility] [address] [place] [address] Health Maintenance Due Date Last [...] this topic Medical Devices Implanted Type Area Fine Craft Artist Device Identifier Shelf Expiration Date Model / Serial / Lot Graft Vasc 4-7mm 40cm Grtx Std Wl Tpr Ln - [id number] Implanted:Qty: 1 on 10/02/2019 by Lucio Singh MD at [facility] Left: Arm [employer] 12/03/2023 [id number] / [id number] / Procedures Procedure Name Priority Date/Time Associated Diagnosis Comments CARDIAC RHYTHM STRIP ORDER 03/21/2024 6:24 PM PST SUPERVISOR IR ANGIO AV SHUNT IMAGING Routine 03/20/2024 2:18 PM PST SUPERVISOR Encounter regarding vascular access for dialysis for end-stage renal disease (HCC) from Last 3 Months Results * CARDIAC RHYTHM STRIP ORDER (03/21/2024 6:24 PM PST SUPERVISOR) Narrative 03/21/2024 6:24 PM PST SUPERVISOR Ordered by an unspecified provider. Scanned Document CARDIAC SERVICES ORD ERABLES * IR ANGIO AV SHUNT IMAGING (03/20/2024 2:18 PM PST SUPERVISOR) Anatomical Region Laterality Modality Lower Extremity, Upper Extremity, Chest X-Ray Angiography Narrative 03/20/2024 2:23 PM PST SUPERVISOR Calvin Lynne MD 03/20/2024 2:25 PM Surgeon: [...] central venous structures are unremarkable. A 6 Rwandan sheath was introduced and angioplasty of the venous anastomosis was performed using an 8 mm x 4 cm Conquest balloon. Reflux injection during balloon inflation demonstrated unremarkable arterial anastomosis. Contrast injection after angioplasty demonstrated no significant improvement at the stenosis. Subsequently the sheath was exchanged for an 8 Rwandan sheath. A 8 mm x 5 cm [...] Documents on File Type Date Recorded Patient Computer Clerk Expl anation Adv Directive/Living Will/POA 10/05/2018 9:04 PM * Full Code (Latest Code Status on File) Date Activated Date Inactivated Comments 10/02/2019 6:22 PM 10/07/2019 8:17 PM Care Teams Nuisance Wildlife Trapper Relationship Specialty Start Date End Date Shahid Powell MD [address] [address] PCP - General 10/05/10
--- OUTSIDE RECORDS SUMMARY | 2024-06-13 18:47 | XMS_ITS | Clinical Summary ---
Author Organization [facility] Address [address] [place] [id number] Phone Care Team Providers Care Driver Lifter Of Sanitation Truck Name Role Phone Unavailable Primary Care Provider [...]
--- OUTSIDE RECORDS SUMMARY | 2024-06-13 18:47 | XMS_ITS | Patient Health Summary ---
Author Organization [facility] Address [address] [place] [address] Care Team Providers Care Dynamic Balancer Name Role Phone Shahid Powell MD Primary Care Provider + Note from [facility],non-owned Affiliates and Associated Physician Practices is amultiple site organization consisting of ambulatory clinics and hospital sitesin [place], [place] and [place]. This disclosure is being madepursuant to the Care Everywhere program and may not contain all information available regarding this patient. Last updated 18.[facility] Allergies * Ibuprofen(GI Discomfort) -Low Criticality [...] daily Also one each snack * B Olcvtrb-N-Thbqb Acid (TRIPHROCAPS) 1 MG CAPS(Started 10/19/2020) * [...] bedtime * Probiotic Product (TRUBIOTICS DIGEST + [employer] HEALTH PO) Take 1 tablet by mouth [...] Comments Blood Pressure 141/80 03/20/2024 2:25 PM REVERSAL PRINT INSPECTOR Pulse 93 03/20/2024 2:25 PM REVERSAL PRINT INSPECTOR Temperature 36.6 C (97.8 F) 03/20/2024 1:47 PM REVERSAL PRINT INSPECTOR Respiratory Rate 10 03/20/2024 2:25 PM REVERSAL PRINT INSPECTOR Oxygen Saturation 100% 03/20/2024 2:25 PM REVERSAL PRINT INSPECTOR Inhaled Oxygen Concentration - - Weight 61.2 kg (135 lb) 03/20/2024 1:47 PM REVERSAL PRINT INSPECTOR Height 139.7 cm (4' 7 ) 03/20/2024 1:47 PM REVERSAL PRINT INSPECTOR Body Mass Index 31.38 03/20/2024 1:47 PM REVERSAL PRINT INSPECTOR Medical Devices Implanted Type Area Ham Sawyer Device Identifier Shelf Expiration Date Model / Serial / Lot Graft Vasc 4-7mm 40cm Grtx Std Wl Tpr Ln - [id number] Implanted:Qty: 1 on 10/02/2019 by Lucio Singh MD at [facility] Left: [employer] 12/03/2023 [id number] / [id number] / Procedures * CARDIAC RHYTHM STRIP ORDER(Performed 03/21/2024) * IR ANGIO AV SHUNT IMAGING(Performed 03/20/2024) Performed for Encounter regarding vascular access for dialysis for end-stage renal disease ([facility]) * IMAGING/RADIOLOGY/XRAY RESULTS ORDER(Performed 11/13/2023) * CARDIAC RHYTHM STRIP ORDER(Performed 10/20/2023) * IR ANGIO AV SHUNT IMAGING(Performed 10/18/2023) Performed for ESRD (end stage renal disease) ([facility]) * CARDIAC RHYTHM STRIP ORDER(Performed 06/16/2023) * IR ANGIO AV SHUNT IMAGING(Performed 06/14/2023) Performed for ESRD (end stage renal disease) ([facility]) * CARDIAC RHYTHM STRIP ORDER(Performed 02/10/2023) * IR ANGIO AV SHUNT IMAGING(Performed 02/08/2023) Performed for ESRD (end stage renal disease) ([facility]) * IMAGING/RADIOLOGY/XRAY RESULTS ORDER(Performed 11/04/2022) * IR ANGIO AV SHUNT IMAGING(Performed 11/02/2022) Performed for ESRD (end stage renal disease) ([facility]) * CARDIAC RHYTHM STRIP ORDER(Performed 06/23/2022) * CARDIAC RHYTHM STRIP ORDER(Performed 02/10/2022) * CARDIAC RHYTHM STRIP ORDER(Performed 10/20/2021) * IR ANGIO AV SHUNT IMAGING(Performed 10/12/2021) Performed for Encounter regarding vascular access for dialysis for end-stage renal disease ([facility]) * CARDIAC RHYTHM STRIP ORDER(Performed 07/20/2021) * CARDIAC RHYTHM STRIP ORDER(Performed 02/27/2021) * CARDIAC RHYTHM STRIP ORDER(Performed 10/23/2020) * CARDIAC RHYTHM STRIP ORDER(Performed 06/16/2020) * IR ANGIO AV SHUNT IMAGING(Performed 06/09/2020) Performed for Encounter regarding vascular access for dialysis for end-stage renal disease ([facility]) * CARDIAC RHYTHM STRIP ORDER(Performed 02/20/2020) * IR ANGIO AV SHUNT IMAGING(Performed 02/18/2020) Performed for ESRD (end stage renal disease) ([facility]) * CARDIAC RHYTHM STRIP ORDER(Performed 11/21/2019) * [...] Performed for ESRD (end stage renal disease) ([facility]) * GLUCOSE - POINT OF CARE(Performed 10/05/2019) * GLUCOSE - POINT OF CARE(Performed 10/05/2019) * GLUCOSE - POINT OF CARE(Performed 10/05/2019) * GLUCOSE - POINT OF CARE(Performed 10/04/2019) * GLUCOSE - POINT OF CARE(Performed 10/04/2019) * UT ED EGD FLEX TRANSORAL DX(Performed 10/04/2019) * PATHOLOGY TISSUE EXAM (STL)(Performed 10/04/2019) Performed for Diagnosis unknown * GLUCOSE - POINT OF CARE(Performed 10/04/2019) * HEMODIALYSIS INPATIENT(Performed 10/04/2019) * EGD(Performed 10/04/2019) * HEMOGLOBIN A1C(Performed 10/04/2019) Performed for Type 2 diabetes mellitus without complication, unspecified whether quantometer operator insulin use (HCC) * RENAL FUNCTION PANEL(Performed [...] Performed for ESRD (end stage renal disease) ([facility]) * CARDIAC RHYTHM STRIP ORDER(Performed 07/02/2019) * IR ANGIO AV SHUNT IMAGING(Performed 06/20/2019) Performed for Complication of arteriovenous dialysis fistula, initial encounter * CARDIAC RHYTHM STRIP ORDER(Performed 04/30/2019) * IMAGING/RADIOLOGY/XRAY RESULTS ORDER(Performed 04/30/2019) * IR ANGIO AV SHUNT IMAGING(Performed 04/25/2019) Performed for ESRD (end stage renal disease) ([facility]), Inadequate flow of dialysis arteriovenous fistula, subsequent encounter * REVISION ARTERIOVENOUS (AV) FISTULA/GRAFT(Performed 03/14/2019) * BASIC METABOLIC PANEL (CALCIUM TOTAL)(Performed 03/14/2019) Performed for Preoperative examination * VAS DIALYSIS EXIST ACCESS SCAN(Performed 01/31/2019) Performed for ESRD (end stage renal disease) ([facility]) * CARDIAC RHYTHM STRIP ORDER(Performed 12/19/2018) * IR ANGIO AV SHUNT IMAGING(Performed 12/11/2018) Performed for Complication of arteriovenous dialysis fistula, initial encounter * VAS DIALYSIS EXIST ACCESS SCAN(Performed 11/15/2018) Performed for ESRD (end stage renal disease) ([facility]) * CREATE FISTULA A-V(Performed 10/04/2018) * GLUCOSE - POINT OF CARE(Performed 10/04/2018) * BASIC METABOLIC PANEL (CALCIUM TOTAL)(Performed 10/04/2018) Performed for Preop examination * VAS BILAT MAPPING FOR HEMODIALYSIS(Performed 09/27/2018) Performed for ESRD (end stage renal disease) ([facility]) * CULTURE URINE(Performed 09/16/2013) Results * CARDIAC RHYTHM STRIP ORDER (03/21/2024 6:24 PM REVERSAL PRINT INSPECTOR) Only the most recent of18 resultswithin the time period is included. Narrative 03/21/2024 6:24 PM REVERSAL PRINT INSPECTOR Ordered by an unspecified provider. Scanned Document CARDIAC SERVICES ORD ERABLES * IR ANGIO AV SHUNT IMAGING (03/20/2024 2:18 PM REVERSAL PRINT INSPECTOR) Only the most recent of12 resultswithin the time period is included. Anatomical Region Laterality Modality Lower Extremity, Upper Extremity, Chest X-Ray Angiography Narrative 03/20/2024 2:23 PM REVERSAL PRINT INSPECTOR Calvin Lynne MD 03/20/2024 2:25 PM Surgeon: [...] central venous structures are unremarkable. A 6 Kiswahili sheath was introduced and angioplasty of the venous anastomosis was performed using an 8 mm x 4 cm Conquest balloon. Reflux injection during balloon inflation demonstrated unremarkable arterial anastomosis. Contrast injection after angioplasty demonstrated no significant improvement at the stenosis. Subsequently the sheath was exchanged for an 8 Kiswahili sheath. A 8 mm x 5 cm [...] - 15.6 gm/dL 10/07/2019 10:25 AM CDT [facility] Hematocrit 24.2(L) 35.9 - 45.5 % 10/07/2019 10:25 AM CDT [facility] Blood BLOOD SPECIMEN / Unknown Venipuncture / Unknown 10/07/2019 10:15 AM CDT 10/07/2019 10:22 AM CDT Lyndon Cárdenas MD LAB - HEMATOLOGY ORD ERABLES [facility] [address] [place] [address] * TRANSFUSE RED BLOOD CELL LEUKOREDUCED UNIT(S) (10/06/2019 4:08 PM CDT) Nuris Parks MD NURSING - BLOOD PROD TRANSFUSION * (ABNORMAL) GLUCOSE - POINT OF CARE (10/06/2019 11:29 AM CDT) Only the most recent of14 resultswithin the time period is included. Pathologist [facility] Glucose WB/POC 148(H) 70 - 106 mg/dL 10/06/2019 5:50 PM CDT [facility] Specimen Type Arterial/C apillary 10/06/2019 5:50 PM CDT [facility] Blood BLOOD SPECIMEN / Unknown 10/06/2019 11:29 AM CDT 10/06/2019 5:50 PM CDT Nuris Parks MD LAB - POINT OF CARE ORDERABLES Performing Organization Address [facility] Co de Phone Number [facility] [id number] [place] [address] * TYPE + SCREEN PANEL (10/06/2019 10:53 AM CDT) ABO O 10/06/2019 11:40 AM CDT [facility] Rh Type Negative 10/06/2019 11:40 AM CDT [facility] Comment:History checked. Col lect retype. Antibody Screen Negative 10/06/2019 11:40 AM CDT [facility] Blood Bank BLOOD SPECIMEN / Unknown Venipuncture / Unknown 10/06/2019 10:53 AM CDT 10/06/2019 11:03 AM CDT Nuris Parks MD LAB - BLOOD BANK ORD ERABLES Performing Organization Address [facility] de Phone Number [facility] [address] [place] [address] * PREPARE (CROSSMATCH) RBC UNIT(S), 1 Units (10/06/2019 10:45 AM CDT) Product Code [id number] [facility] Unit Donor # [id number] [facility] ABO Donor Type O [facility] Rh Type Unit NEG [facility] Unit Status Transfd [facility] ABO Rh Type Unit ONEG [facility] Donor Unit Expiration Date [id number] [facility] Blood Type Barcode 9500 [facility] Blood Bank BLOOD SPECIMEN / Unknown 10/06/2019 10:45 AM CDT Nuris Parks MD LAB - BLOOD BANK ORD ERABLES Performing Organization Address [facility] de Phone Number [facility] [address] [place] [address] * BLOOD TYPE VERIFICATION (10/06/2019 9:53 AM CDT) ABO O 10/06/2019 11:30 AM CDT [facility] Rh Type Negative 10/06/2019 11:30 AM CDT [facility] Blood Bank BLOOD SPECIMEN / Unknown Venipuncture / Unknown 10/06/2019 9:53 AM CDT 10/06/2019 11:05 AM CDT Nuris Parks MD LAB - BLOOD BANK ORD ERABLES [facility] [address] * (ABNORMAL) CBC W AUTO DIFFERENTIAL (10/06/2019 5:37 AM CDT) Only the most recent of2 resultswithin the time period is included. [facility] WBC 8.1 4.4 - 10.7 x10E9/L 10/06/2019 5:57 AM CDT [facility] WBC Corrected 10/06/2019 5:57 AM CDT [facility] RBC 2.02(L) 3.80 - 5.20 x10E12/L 10/06/2019 5:57 AM CDT [facility] Hemoglobin 6.4(L) 12.0 - 15.6 gm/dL 10/06/2019 5:57 AM CDT [facility] Hematocrit 20.6(L) 35.9 - 45.5 % 10/06/2019 5:57 AM CDT [facility] MCV 102.0(H) 80.7 - 98.3 fl 10/06/2019 5:57 AM CDT [facility] MCH 31.7 26.7 - 34.0 pg 10/06/2019 5:57 AM CDT [facility] MCHC 31.1 30.8 - 35.9 gm/dL 10/06/2019 5:57 AM CDT [facility] Platelet Count 117(L) 153 - 416 x10E9/L 10/06/2019 5:57 AM CDT [facility] RDW-CV 15.1(H) 12.1 - 14.9 % 10/06/2019 5:57 AM CDT [facility] MPV 10.0 9.4 - 12.9 fl 10/06/2019 5:57 AM CDT [facility] Neutrophils % 59.3 44.0 - 73.0 % 10/06/2019 5:57 AM CDT [facility] Lymphocytes % 29.3 20.0 - 43.0 % 10/06/2019 5:57 AM CDT [facility] Monocytes % 8.5 5.0 - 13.0 % 10/06/2019 5:57 AM CDT [facility] Eosinophils % 1.9 0.0 - 6.0 % 10/06/2019 5:57 AM CDT [facility] Basophils % 0.4 0.0 - 2.0 % 10/06/2019 5:57 AM CDT [facility] Immature Granulocytes 0.6 0 - 1 % 10/06/2019 5:57 AM CDT [facility] Neutrophil Absolute 4.81 2.01 - 7.14 x10E9/L 10/06/2019 5:57 AM CDT [facility] Lymphocytes Absolute 2.37 1.07 - 3.94 x10E9/L 10/06/2019 5:57 AM CDT [facility] Monocytes Absolute 0.69 0.26 - 1.07 x10E9/L 10/06/2019 5:57 AM CDT [facility] Eosinophils Absolute 0.15 0 - 0.47 x10E9/L 10/06/2019 5:57 AM CDT [facility] Basophils Absolute 0.03 0 - 0.08 x10E9/L 10/06/2019 5:57 AM CDT [facility] Immature Granulocytes Absolute 0.05 0.00 - 0.06 x10E9/L 10/06/2019 5:57 AM CDT [facility] nRBC Auto 0 /100 WBC 10/06/2019 5:57 AM CDT [facility] Blood BLOOD SPECIMEN / Unknown Venipuncture / Unknown 10/06/2019 5:37 AM CDT 10/06/2019 5:46 AM CDT Narrative [facility] - 10/06/2019 5:57 AM CDT PLATELETS = SLIGHTLY DECREASED Lyndon Cárdenas MD LAB - HEMATOLOGY ORD ERABLES [facility] [address] [place] [address] * GROSS + MICRO EXAM (STL) (10/04/2019 1:11 PM CDT) Case Report Surgical Pathology Report Case: [id number] Authorizing Provider: Ada Hayes DO Collected: 10/04/2019 01:11 PM Ordering Location: [facility] Received: 10/04/2019 03:11 PM Pathologist: Vaishnavi Mckinnon MD Specimens: A) - Duodenal Biopsy B) - Gastric Biopsy 10/09/2019 9:30 AM CDT [facility] Addendum 1 A Helicobacter pylor i immunostain performed on block B1 is negative. 10/09/2019 9:30 AM CDT [facility] Addendum electronically signed by Vaishnavi Mckinnon MD on 10/09/2019 at 9:29 AM Final Diagnosis A. Duodenum, biopsy: -- Small intestinal mucosa with no histopathologic abnormality B. Stomach, biopsy: -- Antral and oxyntic type gastric mucosa with mild chronic inflammation -- Oxyntic type gastric mucosa with changes consistent with proton pump inhibitor effect -- No dysplasia or malignancy 10/09/2019 9:30 AM CDT [facility] Gross Description Received in container A [...] cassette B1. CH/ns 10/09/2019 9:30 AM CDT [facility] Microscopic Description A Helicobacter pylori immunostain will be performed on block B1 and the result will be reported in an addendum. 10/09/2019 9:30 AM CDT [facility] Disclaimer All histochemical and/or immunohistochemical results are interpreted with controls that demonstrate appropriate staining reactions before reporting results. Note on use of immunocytochemistry reagents: This test was developed and its performance characteristic determined by [facility], Department of Laboratory Medicine. It has not [...] interpreted with caution. 10/09/2019 9:30 AM CDT [facility] Embedded Images 10/09/2019 9:30 AM CDT [facility] Pathology/Cytology GASTRIC BIOPSY SPECIMEN / Unknown 10/04/2019 1:11 PM CDT 10/04/2019 3:11 PM CDT Miscellaneous samples (specimen) GASTRIC BIOPSY SPECIMEN / Unknown 10/04/2019 1:11 PM CDT 10/04/2019 3:11 PM CDT Ada Hayes DO LAB - PATHOLOGY/CYTO LOGY ORDERABLES Performing Organization Address City/State/[facility] Co de Phone Number [facility] [address] [place] [phone] * EGD (10/04/2019 7:12 AM CDT) Report [...] 1 week. Procedure Code(s): --- Professional --- 92093, Esophagogastroduo denoscopy, flexible, transoral; with biopsy, single or multiple --- Technical --- 77731, Esophagogastroduo denoscopy, flexible, transoral; with biopsy, single or multiple Diagnosis Code(s): --- Professional --- K29.00, Acute gastritis without bleeding R10.13, Epigastric pain R11.2, Nausea with vomiting, unspecified --- Technical --- K29.00, Acute gastritis without bleeding R10.13, Epigastric pain R11.2, Nausea with vomiting, unspecified CPT copyright 2017 [employer]. All rights reserved. The codes documented in this report are preliminary and upon plate furnace operator review may be revised to meet current compliance requirements. ____ Ada Hayes DO 10/04/2019 1:15:25 PM This report has been signed electronically. Number of Addenda: 0 Note Initiated On: 10/04/2019 7:12 AM [facility] 10/04/2019 7:12 AM CDT Isaias Leon DO GI PROCEDURE ORDER LISE [facility] [place] [address] * HEMOGLOBIN A1C (10/04/2019 4:13 AM CDT) Hemoglobin A1c 4.8 4.2 - 5.6 % 10/04/2019 5:06 AM CDT [facility] Estimated Average Glucose 91 mg/dL 10/04/2019 5:06 AM CDT [facility] Blood BLOOD SPECIMEN / Unknown Venipuncture / Unknown 10/04/2019 4:13 AM CDT 10/04/2019 4:52 AM CDT Narrative [facility] - 10/04/2019 5:06 AM CDT The following cutoff levels are recommended by [employer]. A1c > 6.5% : considered [...] Wheeler MD LAB - CHEMISTRY JEANETTE WINSTON [facility] Organization Address City/State/ZIP Co de Phone Number [facility] [address] [place] [address] * (ABNORMAL) RENAL FUNCTION PANEL (10/04/2019 4:13 AM CDT) Glucose 108(H) 70 - 105 mg/dL 10/04/2019 5:45 AM CDT [facility] Sodium 131(L) 136 - 145 mmol/L 10/04/2019 5:45 AM CDT [facility] Potassium 4.4 3.5 - 5.1 mmol/L 10/04/2019 5:45 AM CDT [facility] Chloride 95(L) 98 - 107 mmol/L 10/04/2019 5:45 AM CDT [facility] CO2 20(L) 23 - 31 mmol/L 10/04/2019 5:45 AM CDT [facility] Calcium 8.5 8.4 - 10.4 mg/dL 10/04/2019 5:45 AM CDT [facility] Anion Gap 16 8 - 16 mmol/L 10/04/2019 5:45 AM CDT [facility] BUN 32(H) 9.8 - 20.1 mg/dL 10/04/2019 5:45 AM CDT [facility] Creatinine 4.03(H) 0.57 - 1.11 mg/dL 10/04/2019 5:45 AM CDT [facility] Albumin 3.6 3.2 - 4.6 gm/dL 10/04/2019 5:45 AM CDT [facility] Phosphorus 5.3(H) 2.3 - 4.7 mg/dL 10/04/2019 5:45 AM CDT [facility] eGFR by MDRD 11 mL/min/1.7 3m2 10/04/2019 5:45 AM CDT [facility] eGFR by MDRD 13 mL/min/1.7 3m2 10/04/2019 5:45 AM CDT [facility] Blood BLOOD SPECIMEN / Unknown Venipuncture / Unknown 10/04/2019 4:13 AM CDT 10/04/2019 4:53 AM CDT Lyndon Cárdenas MD LAB - CHEMISTRY JEANETTE WINSTON [facility] Organization Address City/State/ZIP Co de Phone Number [facility] [address] [place] [address] * BLOOD GAS ART+LYTES+H&H POCT NOTIFICATION (10/04/2019 1:33 AM CDT) Comment Notification Label Only - See Separate Report 10/04/2019 3:00 AM CDT [facility] Blood BLOOD SPECIMEN / Unknown 10/04/2019 1:33 AM CDT 10/04/2019 1:33 AM CDT Salvador Wheeler MD LAB - BLOOD GASES OR DERABLES [facility] [address] [phone] * XR ABD OBSTRUCTION SERIES 2VW (10/03/2019 [...] resultswithin the time period is included. Pathologist [facility] Culture No growth day 5 GASPER 10/09/2019 1:41 AM CDT [facility] Blood PERIPHERAL BLOOD / Unknown Venipuncture / Unknown 10/03/2019 9:37 PM CDT 10/03/2019 9:45 PM CDT Salvador Wheeler MD LAB - MICROBIOLOGY O RDERABLES [facility]CRO[facility] [address] [place] [phone] * TSH REFLEX FREE T4 (10/03/2019 9:19 PM CDT) Pathologist [facility] TSH 2.847 0.350 - 4.940 uIU/mL 10/03/2019 11:05 PM CDT [facility] Blood BLOOD SPECIMEN / Unknown Venipuncture / Unknown 10/03/2019 9:19 PM CDT 10/03/2019 10:32 PM CDT Salvador Wheeler MD LAB - CHEMISTRY ORDYessenia WINSTON [facility] [address] [place] [address] * (ABNORMAL) HYDROXYBUTYRATE BETA (10/03/2019 9:19 PM CDT) Beta-Hydroxybu tyrate 5.1(H) <0.6 mmol/L 10/03/2019 9:39 PM CDT [facility] Blood BLOOD SPECIMEN / Unknown Venipuncture / Unknown 10/03/2019 9:19 PM CDT 10/03/2019 9:26 PM CDT Narrative [facility] - 10/03/2019 9:39 PM CDT Betahydroxybutyrate comment: This test replaces Serum Acetone testing.Results 0.6-1.5 mmol/L could require medical intervention. Results >1.5 mmol/L may be indicative of diabetic ketoacidosis. Use in conjunction with Serum Glucose levels. Salvador Wheeler MD LAB - CHEMISTRY ORDE CATRACHITO Performing Organization Address [facility]/ZIP Co de Phone Number [facility] [address] [place] [address] * PT-INR (10/03/2019 9:19 PM CDT) PT 13.7 12.1 - 14.8 sec 10/03/2019 9:40 PM CDT [facility] INR 1.1 0.9 - 1.1 10/03/2019 9:40 PM CDT [facility] Blood BLOOD SPECIMEN / Unknown Venipuncture / Unknown 10/03/2019 9:19 PM CDT 10/03/2019 9:26 PM CDT Narrative [facility] - 10/03/2019 9:40 PM CDT Conventional Warfarin Anticoagulant Therapy: INR Reference Range: 2.0-3.0 Intensive Warfarin Anticoagulant Therapy: INR Reference Range: 2.5-3.5 Salvador Wheeler MD LAB - COAGULATION OR DERABLES Performing Organization Address [facility] Co de Phone Number [facility] [address] [place] [address] * (ABNORMAL) COMPREHENSIVE METABOLIC PANEL (10/03/2019 9:19 PM CDT) Glucose 102 70 - 105 mg/dL 10/03/2019 9:50 PM CDT [facility] Sodium 132(L) 136 - 145 mmol/L 10/03/2019 9:50 PM CDT [facility] Potassium 3.3(L) 3.5 - 5.1 mmol/L 10/03/2019 9:50 PM CDT [facility] Chloride 94(L) 98 - 107 mmol/L 10/03/2019 9:50 PM CDT [facility] CO2 21(L) 23 - 31 mmol/L 10/03/2019 9:50 PM CDT [facility] Calcium 8.5 8.4 - 10.4 mg/dL 10/03/2019 9:50 PM CDT [facility] Anion Gap 17(H) 8 - 16 mmol/L 10/03/2019 9:50 PM CDT [facility] BUN 24(H) 9.8 - 20.1 mg/dL 10/03/2019 9:50 PM CDT [facility] Creatinine 3.31(H) 0.57 - 1.11 mg/dL 10/03/2019 9:50 PM CDT [facility] Alkaline Phosphatase 113 40 - 150 U/L 10/03/2019 9:50 PM CDT [facility] ALT <6 0 - 61 U/L 10/03/2019 9:50 PM CDT [facility] AST 19 5 - 34 U/L 10/03/2019 9:50 PM CDT [facility] Protein Total 6.9 6.4 - 8.3 gm/dL 10/03/2019 9:50 PM CDT [facility] Albumin 3.6 3.2 - 4.6 gm/dL 10/03/2019 9:50 PM CDT [facility] Bilirubin Total 0.6 0.2 - 1.0 mg/dL 10/03/2019 9:50 PM CDT [facility] eGFR by MDRD 14 mL/min/1.7 3m2 10/03/2019 9:50 PM CDT [facility] eGFR by MDRD 16 mL/min/1.7 3m2 10/03/2019 9:50 PM CDT [facility] Blood BLOOD SPECIMEN / Unknown Venipuncture / Unknown 10/03/2019 9:19 PM CDT 10/03/2019 9:27 PM CDT Salvador Wheeler MD LAB - CHEMISTRY [facility] Organization Address City/State/[facility] Co de Phone Number [facility] [address] [place] [address] * PHOSPHORUS BLOOD (10/03/2019 9:19 PM CDT) Phosphorus 2.8 2.3 - 4.7 mg/dL 10/03/2019 9:48 PM CDT [facility] Blood BLOOD SPECIMEN / Unknown Venipuncture / Unknown 10/03/2019 9:19 PM CDT 10/03/2019 9:27 PM CDT Salvador Wheeler MD LAB - CHEMISTRY ORDYessenia WINSTON Performing Organization Address [facility] Co de Phone Number [facility] [id number] [place] [address] * MAGNESIUM BLOOD (10/03/2019 9:19 PM CDT) Pathologist [facility] Magnesium 1.6 1.6 - 2.6 mg/dL 10/03/2019 9:48 PM CDT [facility] Blood BLOOD SPECIMEN / Unknown Venipuncture / Unknown 10/03/2019 9:19 PM CDT 10/03/2019 9:27 PM CDT Car Castillo MD LAB - CHEMISTRY ORDERABLES Performing Organization Address [facility] Co de Phone Number [facility] [address] [place] [id number] * LACTIC ACID BLOOD (10/03/2019 9:19 PM CDT) [facility] Lactic Acid 1.23 0.5 - 2.2 mmol/L 10/03/2019 9:40 PM CDT [facility] Blood BLOOD SPECIMEN / Unknown Venipuncture / Unknown 10/03/2019 9:19 PM CDT 10/03/2019 9:26 PM CDT Salvador Wheeler MD LAB - CHEMISTRY JEANETTE WINSTON Performing Organization Address [facility] Co de Phone Number [facility] [id number] [place], [place] [phone] * (ABNORMAL) ISTAT EG7+ PANEL ART [...] OF CAR E ORDERABLES [facility] RES[facility]ERAP[facility] [address] [phone] * XR CHEST 1VW PORTABLE (10/03/2019 8:43 [...] Reactive Non Reactive 10/03/2019 4:52 PM CDT [facility] Blood BLOOD SPECIMEN / Unknown Venipuncture / Unknown 10/03/2019 3:09 PM CDT 10/03/2019 3:47 PM CDT Lyndon Cárdenas MD LAB - CHEMISTRY JEANETTE WINSTON [facility] [address] [place] [address] * (ABNORMAL) HEPATITIS B SURFACE ANTIBODY QUANT (10/03/2019 3:08 PM CDT) Hepatitis B Virus Surface Antibody Quantitative 17.68(H) 0.00 - 7.99 mIU/ml 10/03/2019 8:19 PM CDT [facility] HBsAb REACTIVE( A) Non Reactive 10/03/2019 8:19 PM CDT [facility] Blood BLOOD SPECIMEN / Unknown Venipuncture / Unknown 10/03/2019 3:08 PM CDT 10/03/2019 3:47 PM CDT Narrative [facility] - 10/03/2019 8:19 PM CDT Individual is considered immune to HBV infection. Lyndon Cárdenas MD LAB - SEROLOGY ORDER LISE [facility] [address] [place] [address] * IR CENTRAL LINE INSERT TUNNEL (10/03/2019 [...] Prior to the beginning of the procedure, [place] Protocol was used to confirm the patient's [...] Prior to the beginning of the procedure, [place] Protocol was used to confirm the patient's [...] 5 mL/min/1.7 3m2 10/03/2019 4:19 AM CDT [facility] Blood BLOOD SPECIMEN / Unknown Venipuncture / Unknown 10/03/2019 3:43 AM CDT 10/03/2019 3:56 AM CDT Allison Molina Higinio DO LAB - CHEMISTRY JEANETTE BOYKINENRIQUETA [facility] [address] [place] [address] * VAS BILAT MAPPING FOR HEMODIALYSIS (10/02/2019 1:31 PM CDT) Only the most recent of2 resultswithin the time period is included. Anatomical Region Laterality Modality Lower Extremity, Upper Extremity Ultrasound 10/02/2019 1:19 PM CDT Narrative Procedure Note Laci De Leon MD - 10/02/2019 [facility] [place] [facility] [address] [facility], [address] [place] [address] Vessel Mapping for Hemodialysis Report Pat.Name: LEVY GISELE M Pat.ID: [id number] .Date: 10/02/2019 Refer.MD: ALEJANDRA COLES Exam Time: 1:19:00 PM Study Type:Vessel Mapping for Hemodialysis Age: 6 1945,73Y Sex: FEMALE Sonogrphr: Tee Egan RVT Pat. Stat.:Outpatient ICD - 9: N18.6 End stage renal disease CPT - 4: G0365 Procedures: Vessel Mapping for Hemodialysis Race: 2 Visit ID: [id number] ++++++++++++++++++++++++++++++++++++ SUMMARY: ++++++++++++++++++++++++++++++++++++ The left axillary vein [...] Note Marco Antonio Ramos MD - 01/31/2019 [facility] [place] [address], [address] [place] [address] Hemodialysis Graft Report Pat.Name: GISELE CENTENO Pat.ID: [id number] .Date: 01/31/2019 Exam Time: 2:16:00 PM Study Type:Hemodialysis Graft Age: 6 1945,73Y Sex: FEMALE Sonogrphr: Tee Egan RVT Pat. Stat.:Outpatient ICD - 9: N18.6 End stage renal disease CPT - 4: 44474 Procedures: AV Fistula Evaluation Visit ID: [id number] ++++++++++++++++++++++++++++++++++++ SUMMARY: ++++++++++++++++++++++++++++++++++++ Patent left upper AV [...] 5:55 AM CDT) Culture Urine KLEBSIELLA PNEUMONIAE(A) [facility] Comment:1,000,000 CFU/ML Kle bsiella Pneumoniae Urine specimen (specimen) URINE SPECIMEN OBTAINED BY SINGLE CATHETERIZATION OF URINARY BLADDER / Unknown 09/16/2013 5:55 AM CDT 09/16/2013 4:26 PM CDT [facility] - 09/18/2013 9:37 AM CDT BlackSpecimen#[id number] Black Loc/Rm/Bed: ED// STRAIGHT U @09/16/13 0659: URINE CULTURE added. RFLXG = [facility]. Organism Antibiotic Method Susceptibility Klebsiella pneumoniae [...] Provider MD LAB - MICROBIOLOG Y ORDERABLES [address] [phone] Care Teams Dynamic Balancer Relationship Specialty Start Date End Date Shahid Powell MD [address] [place] [id number] PCP - General 10/05/10
--- OUTSIDE RECORDS SUMMARY | 2024-06-13 18:47 | XMS_ITS | Continuity of Care Document ---
Author Organization [facility] Address [address] [place] [address] [address] [place] [address] Phone Care Team Providers Care In Home Nanny Name Role Phone Alexa Harley Unavailable Unavailable Procedures Procedure Date Office/outpatient Visit, Est Eye Exam Established Pt Advance Directives Directive Yes / No Effective Date File Name No Information Encounters Encounter Description Practice Location Reason(s) For Visit Diagnoses Date Provider Providers Copied on Encounter Office/outpat ient Visit, Est [facility], [address] [place] [address] [address], [place], [place], [id number], tel:[phone] [facility] No Information [address] , [address], [place], [place], [facility], [place]. tel:[phone] [facility], [address] [place] [address] [address], [place], [place], [id number], tel:[phone] [facility] No Information Apr-[address] , [address], [place], [place], [facility], [place]. tel:[phone] Family History Family Member Type Diagnosis Age At Onset No Information Payers Payer name Insurance type Covered libertarian ID Authoriza tion(s) No Information Social History [...]
--- OUTSIDE RECORDS SUMMARY | 2024-06-13 18:48 | XMS_ITS | Clinical Summary ---
Author Organization [facility] Address [address] [place] [address] Care Team Providers Care Commercial Energy Rater Name Role Phone Unavailable Primary Care Provider [...] (163 lb 2.3 oz) 07/11/2018 9:00 AM CHEESEMAKER HELPER Height 139.7 cm (4' 7 ) 06/29/2018 2:21 PM CHEESEMAKER HELPER Body Mass Index 37.92 06/29/2018 2:21 PM CHEESEMAKER HELPER Plan of Treatment Not on file Advance Directives * Full Resuscitation (Latest Code Status on File) Date Activated Date Inactivated Comments 06/17/2018 11:21 AM 07/16/2018 11:52 PM * Full Resuscitation Date Activated Date Inactivated Comments 06/17/2018 5:54 AM 06/17/2018 11:21 AM
--- OUTSIDE RECORDS SUMMARY | 2024-06-13 18:48 | XMS_ITS | Encounter Summary ---
Author Organization [facility] Address [address] [place] [address] Care Team Providers Care Spoon Maker Name Role Phone Shahid Powell MD Primary Care Provider + Encounter Details Date Type Department Care Team (Late Contact Info) Description 09/27/[address] [facility] Outpatient Visit [facility] [address] [place] [address] [place] [address] [facility] [address] [place] [phone] Social History Tobacco Use Types Packs/Day [...] Upcoming Encounters Date Type Department Care Team ([facility] Contact Info) Description 07/17/2024 2:45 PM CDT Appointment [facility] [address] [facility], [address] [place] [address] [place] [address] [facility] [address] [place] [address] [place] [address] [phone] [place] [address] [facility] [address] [place] [address] Calvin Lynne MD [address] [place] [address] Ronald Rosas MD [address] [place] [address] [place] [address] [facility] [address] [place] [phone] documented as of this encounter Visit Diagnoses Not on filedocumented in this encounter Care Teams Spoon Maker Relationship Specialty Start Date End Date Shahid Powell MD [address] [facility] [address] [place] [address] PCP - General 10/05/10 documented as of this encounter
--- NOTE | 2024-06-13 19:00 | PC.NURSE ---
Patient taken up to dialysis prior to this nurses arrival.
--- NOTE | 2024-06-13 19:00 | PC.NURSE ---
PT TAKEN TO DIALYSIS AT THIS TIME. ADMISSION BED STILL PENDING.
[2024-06-13 19:04] LABS: Hepatitis B Surface Antigen Negative (Negative)
[2024-06-13 20:41] LABS: Hepatitis B Surface Anti Res Indeterminate
--- NOTE | 2024-06-13 23:34 | ADMGEN ---
This patient, Gisele Centeno, was admitted to IMU Room 203-01 at 2250. Patient/family oriented to hospital policies and general routines including ID bracelet, bed and alarms, visiting hours, pain management, procedures, bathroom and other care routines, personal items, smoking policy, room service/diet, and visiting hours. Information on how to activate the Rapid Response Team has been discussed. Patient/Family are encouraged to report perceived risks to care and to ask questions if they do not understand what they are told or what they should do.
--- NOTE | 2024-06-13 23:48 | P.HP_ITS ---
H&P: HPI History of Present Illness Date/Time: 06/13/24 23:48 Chief Complaint: Hypoxia Narrative: Patient is a poor historian. History is taken via chart review and what is obtainable from the patient. History of hypothyroidism, ESRD on HD Monday, chronic hypoxic respiratory failure requiring 3 L nasal cannula continuously.. She presents on 06/13/2024 via EMS to the [facility] with reports of low oxygen saturation. In the ER a daughter provided information at the bedside. The patient was diagnosed with influenza a on Monday06/10/2024 via a home test. Other family members also had influenza and COVID.On the day prior to admission on 06/12/2024 the patient is O2 saturation dropped to 79%. They increased her to 5 L. then at dialysis on 06/13/2024 she was again bumped up to 5 L. patient reports she has had a dry cough but no fevers or shortness of breath. In the ER she was saturating well on 3 L. she was noted to have occasional expiratory wheezing and rhonchi in the bases bilaterally. Her other vitals were largely stable. CTA of chest did not demonstrate a PE, did reveal pulmonary edema and multifocal pneumonia. Cardiomegaly and enlargement of central pulmonary arteries consistent with pulmonary artery hypertension and unchanged mediastinal left supraclavicular lymphadenopathy. She has chronic thrombocytopenia in admission a platelet count of 57. EKG with out acute ischemia. Troponin 0.402 and then 0.331. Viral screens positive for influenza a and COVID 19. Review of Systems Review of Systems: All systems reviewed & are unremarkable except as noted in HPI and below (HPI) [facility] Past Medical History Medical History Primary localized osteoarthritis of knees, bilateral Pneumonia Depression Hypothyroidism Gout Arthritis Nephrolithiasis Chronic kidney disease Surgical History Surgical History H/O inguinal hernia repair Hx of tonsillectomy Family History Family History Other Diabetes mellitus Heart disease Hypertension Social History Social History Social History: Patient lives with her daughter, grandson daughter's kids and her daughter daughters kids. Patient's did of diabetes in 1985. Patient wishes to be a full code does like her daughter to be her surrogate. She also does have 3 dogs and 2 cats that live with her as well. 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 Gender identity (if verbalized by the patient): Female Sexual Orientation (if Verbalized by the Patient): Straight or Heterosexual Spiritual care concerns: Yes Agree to blood products: Yes Meds Home Medications and Allergies Home Medications ?Medication ?Instructions ?Recorded ?Confirmed ?Type vitamin B complex and vitamin C 1 cap PO DAILY 12/04/21 06/13/24 History no.20-folic acid 1 mg capsule (Triphrocaps) cholecalciferol (vitamin D3) 50 50 mcg PO DAILY 01/11/22 06/13/24 History mcg (2,000 unit) capsule vitamin E (dl, acetate) 180 mg 180 mg PO DAILY 01/11/22 06/13/24 History (400 unit) capsule atorvastatin 40 mg tablet 40 mg PO DAILY 10/12/23 06/13/24 History sertraline 50 mg tablet 50 mg PO HS 11/06/23 06/13/24 History linagliptin 5 mg tablet (Tradjenta) 5 mg PO DAILY 01/26/24 06/13/24 History mirtazapine 30 mg tablet 30 mg PO QHS #90 tabs 01/31/24 06/13/24 Rx dicyclomine 10 mg capsule 10 mg PO BID #60 caps 04/17/24 06/13/24 Rx levothyroxine 112 mcg tablet See Rx Instructions .Route 05/02/24 06/13/24 Rx .COMPLEX #90 tabs calcium acetate(phosphat bind) 667 667 mg PO TIDWM #150 caps 05/06/24 06/13/24 Rx mg capsule Allergies Allergy/AdvReac Type Severity Reaction Status Date / Time ibuprofen AdvReac Mild Abdominal Verified 01/31/24 12:44 Pain Vital Signs Vital Signs - 24 hr 06/13/24 09:45 06/13/24 13:30 06/13/24 13:46 Temperature 97.9 F Pulse Rate 83 78 Respiratory Rate 18 20 Blood Pressure 123/89 110/60 Pulse Oximetry 100 100 99 Oxygen Delivery Nasal Cannula Nasal Cannula Oxygen Flow Rate 3 3 06/13/24 15:00 06/13/24 16:00 06/13/24 16:32 Temperature Pulse Rate 77 81 81 Respiratory Rate 18 20 20 Blood Pressure 105/62 108/57 L 109/58 L Pulse Oximetry 100 99 100 Oxygen Delivery Oxygen Flow Rate 06/13/24 18:27 06/13/24 19:07 06/13/24 19:07 Temperature 98.2 F Pulse Rate 77 78 Respiratory Rate 20 18 Blood Pressure 107/61 107/72 Pulse Oximetry 99 Oxygen Delivery Oxygen Flow Rate 3 06/13/24 19:18 06/13/24 19:30 06/13/24 19:45 Temperature Pulse Rate 60 83 86 Respiratory Rate Blood Pressure 128/59 L 124/74 126/97 H Pulse Oximetry Oxygen Delivery Oxygen Flow Rate 06/13/24 20:00 06/13/24 20:15 06/13/24 20:30 Temperature Pulse Rate 87 83 83 Respiratory Rate Blood Pressure 179/106 H 190/88 H 201/99 H Pulse Oximetry Oxygen Delivery Oxygen Flow Rate 06/13/24 20:45 06/13/24 21:00 06/13/24 21:15 Temperature Pulse Rate 67 71 82 Respiratory Rate Blood Pressure 97/48 L 111/45 L 140/77 Pulse Oximetry Oxygen Delivery Oxygen Flow Rate 06/13/24 21:30 06/13/24 21:45 06/13/24 22:00 Temperature Pulse Rate 81 73 59 L Respiratory Rate Blood Pressure 138/87 183/111 H 153/97 H Pulse Oximetry Oxygen Delivery Oxygen Flow Rate 06/13/24 22:18 06/13/24 22:33 06/13/24 23:00 Temperature 98.1 F 98.5 F Pulse Rate 51 L 88 80 Respiratory Rate 18 20 Blood Pressure 134/47 L 147/56 H 122/65 Pulse Oximetry 98 Oxygen Delivery Oxygen Flow Rate Exam Const: General: comfortable and no acute distress Eyes: Pupils: Equal, round and reactive pupils present Neck: Neck: supple Resp: Effort & Inspection: normal respiratory effort Auscultation: rhonchi and wheezes Cardio: Rate: regular rate Rhythm: regular rhythm GI: GI Palp: Yes Soft to palpation and No Tenderness to palpation present (GI) Extrem: General: edema (1+) H&P: Results Labs Labs: Short CBC 06/13/24 Range/Units 13:13 WBC 3.0 L (4.5-10.0) K/mm3 Hgb 10.9 L (12.0-15.0) g/dL Hct 36.9 L (37.0-47.0) % Plt Count 57 L D (150-375) k/mm3 BMP 06/13/24 06/13/24 06/13/24 13:13 13:13 13:13 Sodium Cancelled 136 L Potassium Cancelled 4.4 Chloride Cancelled Carbon Dioxide BUN Creatinine Glucose Calcium 06/13/24 06/13/24 06/13/24 13:13 13:13 13:13 Sodium Potassium Chloride 94 L Carbon Dioxide Cancelled 31 H BUN Cancelled 57 H D Creatinine Cancelled Glucose Calcium 06/13/24 06/13/24 06/13/24 13:13 13:13 13:13 Sodium Potassium Chloride Carbon Dioxide BUN Creatinine 6.71 H Glucose Cancelled 77 Calcium Cancelled 8.1 L Cardiac Enzymes 06/13/24 Range/Units 13:13 Troponin I 0.402 H* (0.000-0.034) ng/mL Liver Function 06/13/24 06/13/24 06/13/24 Range/Units 13:13 13:13 13:13 Total Bilirubin Cancelled 0.6 AST Cancelled 48 H ALT Cancelled Alkaline Phosphatase Albumin 06/13/24 06/13/24 06/13/24 Range/Units 13:13 13:13 13:13 Total Bilirubin AST ALT 21 Alkaline Phosphatase Cancelled 144 H Albumin Cancelled 3.9 Assessment and Plan Assessment and plan (1) Influenza A: Code(s): J10.1 - Influenza due to other identified influenza virus with other respiratory manifestations Status: Acute (2) COVID-19: Code(s): U07.1 - COVID-19 Status: Acute (3) Acute on chronic respiratory failure with hypoxemia: Code(s): J96.21 - Acute and chronic respiratory failure with hypoxia Status: Acute (4) Multifocal pneumonia: Code(s): J18.9 - Pneumonia, unspecified organism Status: Acute Plan Acute hypoxic on chronic respiratory failure ESRD on dialysis Monday Hypothyroidism Influenza a COVID-19 Acute on chronic thrombocytopenia Leukopenia Anemia Elevated troponin ---- Her presenting symptoms of hypoxia and dry cough her likely related to influenza a and COVID-19 and/or suspected bacterial pneumonia. The family has been ill with these viruses for many days and the patient was positive for influenza a on Monday06/10/2024. Since admission the patient has been breathing well at rest. She was evaluated in the dialysis unit. She currently saturates well on 3 L which is her baseline. We discussed the management of COVID and influenza a with the above considered and the patient would like to forego steroid/remdesivir and unless she takes a turn for the worse. She would like to start Tamiflu. Start Tamiflu at 30 mg Q 48 hours which is renally dosed. Continue to monitor her CBC. Continue ceftriaxone and azithromycin. MRSA PCR pending. Blood cultures were drawn in the ER as well. Her troponin has peaked at 0.402 an EKG is without acute ischemic changes. This is likely demand type 2 ischemia. She denies chest pain or shortness of breath. ---- SCDs only for now. Patient would like to be full code Hospitalist MIPS Advance Care Plan I have confirmed that the patient's Advanced Care Plan is present, code status is documented, or surrogate decision maker is listed in patient medical record.: Yes Medication Reconciliation I have utilized all available resources to obtain, update and review the patients current medications (includes all prescriptions, OTC, herbals, cannabis, and nutritional supplements).: Yes
[2024-06-14] VITALS (11 sets, daily range): BP systolic 92–122; BP diastolic 36–99; PULSE 75–91; RESP 16–20; TEMP 36.3–38.2; O2SAT 94–100
[2024-06-14 00:33] LABS: Troponin I 0.331 ng/mL (0.000-0.034)
[2024-06-14] MEDS: OSELTAMIVIR PHOSPHATE 30 MG CAPSULE PO (01:13)
[2024-06-14 03:05] LABS: Basophils Percent Auto 0.4 % (0.2-1.2); Hematocrit 34.3 % (37.0-47.0); Hemoglobin 10.3 g/dL (12.0-15.0); Immature Granulocyte Absolute 0.02 K/mm3 (0.00-0.031); Immature Granulocyte Percent A 0.8 % (0-0.5); Immature Platelet Fraction Pct 5.2 % (0.9-11.2); Lymphocytes Absolute Auto 0.46 K/mm3 (0.9-3.2); Lymphocytes Percent Auto 19.2 % (18.3-44.2); Mean Corpuscular Hemoglobin 31.1 pg (26-34); Mean Corpuscular Volume 103.6 fl (80-100); Mean Platelet Volume 10.5 fl (7.4-10.4); Monocytes Absolute Auto 0.2 K/mm3 (0.1-0.6); Monocytes Percent Auto 6.3 % (2.6-8.5); Neutrophils Absolute Auto 1.8 K/mm3 (1.3-6.7); Neutrophils Percent Auto 73.3 % (45.5-73.1); Red Blood Count 3.31 M/mm3 (4.2-5.4); Red Cell Distribution Width 15.9 % (11.5-14.5); White Blood Count 2.4 K/mm3 (4.5-10.0)
[2024-06-14 03:20] LABS: Anion Gap 8 mmol/L (4-12); Blood Urea Nitrogen 26 mg/dL (7-17); Carbon Dioxide 29 mmol/L (22-30); Chloride 101 mmol/L (98-107); Estimated Glomerular Filt Rate 12; Glucose 59 mg/dL (65-110); Magnesium 2.2 mg/dL (1.6-2.3); Potassium 3.9 mmol/L (3.4-5.0); Sodium 138 mmol/L (137-145)
[2024-06-14 03:24] LABS: Platelet Count Result 53 k/mm3 (150-375)
[2024-06-14 03:25] LABS: Hypochromasia 1+; Platelet Estimate Decreased (Adequate)
[2024-06-14 03:26] LABS: Anisocytosis 1+; Schistocytes None Seen
[2024-06-14 03:29] LABS: Troponin I 0.339 ng/mL (0.000-0.034)
[2024-06-14 03:51] LABS: Glucose Point of Care 104 mg/dl (65-105)
[2024-06-14] MEDS: ACETAMINOPHEN 325 MG TABLET 650 MG PO (09:21)
--- NOTE | 2024-06-14 09:34 | PM.IMPN ---
Progress Note: A&P Assessment and Plan (1) Influenza A: Code(s): J10.1 - Influenza due to other identified influenza virus with other respiratory manifestations Status: Acute (2) COVID-19: Code(s): U07.1 - COVID-19 Status: Acute (3) Acute on chronic respiratory failure with hypoxemia: Code(s): J96.21 - Acute and chronic respiratory failure with hypoxia Status: Acute (4) Multifocal pneumonia: Code(s): J18.9 - Pneumonia, unspecified organism Status: Acute Plan Patient presented with low oxygen level. Patient was diagnosed with influenza a on Monday via home test. Several other family members had influenza and COVID at home. Chronic oxygen at 3 L via nasal cannula. Also associated shortness of breath. Oxygen requirement has increased to 5 L. Attempted to go to dialysis however oxygen was low again and hence was sent to ED for evaluation. Associated cough no fever. In the ED vitals were stable afebrile oxygen saturation is adequate on 3 L oxygen via nasal cannula. Laboratory studies shows WBC of 3 hemoglobin of 10.9 platelet of 57. Creatinine was 6.7 consistent with end-stage renal disease. Electrolytes were unremarkable. D-dimer was elevated 1.48. BNP was more than 30,000 troponin was elevated at 0.402. Influenza a and COVID positive. Started on Tamiflu for influenza Patient refused to get steroid or remdesivir for COVID infection. Chest x-ray revealed multifocal pneumonia.. CTA showed no evidence of PE but demonstrated multifocal pneumonia. Patient has been started on ceftriaxone and azithromycin. MRSA PCR pending. Blood culture were obtained. Elevated troponin likely demand ischemia due to hypoxia. Flat trend 0.402-0.33 1-0.339 Thrombocytopenia likely due to viral infection. Continue to monitor Acute hypoxic on chronic respiratory failure on oxygen 3 L at baseline ESRD on dialysis Monday nephrology has been consulted for inpatient hemodialysis Hypothyroidism Type 2 diabetes Hypertension Hyperlipidemia Anxiety depression Osteoarthritis Gout Acute on chronic thrombocytopenia Leukopenia Anemia DVT prophylaxis SCDs due to thrombocytopenia Code status full code Subjective Date/time seen: 06/14/24 09:34 Interval history: Chart reviewed. Patient presented with low oxygen level. Patient was diagnosed with influenza a on Monday via home test. Several other family members had influenza and COVID at home. Chronic oxygen at 3 L via nasal cannula. Also associated shortness of breath. Oxygen requirement has increased to 5 L. Attempted to go to dialysis however oxygen was low again and hence was sent to ED for evaluation. Associated cough no fever. Review of Systems Review of Systems: All systems reviewed & are unremarkable except as noted in HPI and below (HPI) Exam Narrative: GENERAL: Well-appearing, well-nourished, and in no acute distress. HEAD: Normocephalic, atraumatic. EYES: PERRLA and EOMI. ENT: Nares clear, no rhinorrhea or epistaxis. Mucous membranes moist. NECK: Supple. CHEST: Diminished breath sounds bilaterally No respiratory distress. HEART: Regular rate and rhythm. No murmur heard. Normal peripheral pulses. ABDOMEN: Soft, nontender, nondistended, normal active bowel sounds. EXTREMITIES: Normal range of motion. No edema. SKIN: Warm, dry, no rash. NEURO: No focal deficits. Alert and oriented x3. PSYCH: Normal mood and affect. Objective Data Vital Signs Vital Signs: Vital Signs - 24 hr 06/13/24 09:45 06/13/24 13:30 06/13/24 13:46 Temperature 97.9 F Pulse Rate 83 78 Respiratory Rate 18 20 Blood Pressure 123/89 110/60 Pulse Oximetry 100 100 99 Oxygen Delivery Nasal Cannula Nasal Cannula Oxygen Flow Rate 3 3 06/13/24 15:00 06/13/24 16:00 06/13/24 16:32 Temperature Pulse Rate 77 81 81 Respiratory Rate 18 20 20 Blood Pressure 105/62 108/57 L 109/58 L Pulse Oximetry 100 99 100 Oxygen Delivery Oxygen Flow Rate 06/13/24 18:27 06/13/24 19:07 06/13/24 19:07 Temperature 98.2 F Pulse Rate 77 78 Respiratory Rate 20 18 Blood Pressure 107/61 107/72 Pulse Oximetry 99 Oxygen Delivery Oxygen Flow Rate 3 06/13/24 19:18 06/13/24 19:30 06/13/24 19:45 Temperature Pulse Rate 60 83 86 Respiratory Rate Blood Pressure 128/59 L 124/74 126/97 H Pulse Oximetry Oxygen Delivery Oxygen Flow Rate 06/13/24 20:00 06/13/24 20:15 06/13/24 20:30 Temperature Pulse Rate 87 83 83 Respiratory Rate Blood Pressure 179/106 H 190/88 H 201/99 H Pulse Oximetry Oxygen Delivery Oxygen Flow Rate 06/13/24 20:45 02/06/25 21:00 06/13/24 21:15 Temperature Pulse Rate 67 71 82 Respiratory Rate Blood Pressure 97/48 L 111/45 L 140/77 Pulse Oximetry Oxygen Delivery Oxygen Flow Rate 06/13/24 21:30 06/13/24 21:45 06/13/24 22:00 Temperature Pulse Rate 81 73 59 L Respiratory Rate Blood Pressure 138/87 183/111 H 153/97 H Pulse Oximetry Oxygen Delivery Oxygen Flow Rate 06/13/24 22:18 06/13/24 22:33 06/13/24 23:00 Temperature 98.1 F 98.5 F Pulse Rate 51 L 88 80 Respiratory Rate 18 20 Blood Pressure 134/47 L 147/56 H 122/65 Pulse Oximetry 98 Oxygen Delivery Oxygen Flow Rate 06/13/24 23:52 06/14/24 00:00 06/14/24 00:00 Temperature Pulse Rate 91 78 Respiratory Rate Blood Pressure Pulse Oximetry 95 Oxygen Delivery Nasal Cannula Oxygen Flow Rate 3 06/14/24 04:00 06/14/24 04:00 06/14/24 04:00 Temperature 98.3 F Pulse Rate 80 78 Respiratory Rate 18 Blood Pressure 119/99 H Pulse Oximetry 98 95 Oxygen Delivery Nasal Cannula Oxygen Flow Rate 3 06/14/24 08:00 06/14/24 09:21 Temperature 100.7 F H 100.7 F H Pulse Rate 85 Respiratory Rate 18 Blood Pressure 104/51 L Pulse Oximetry 100 Oxygen Delivery Oxygen Flow Rate Intake/Output Intake/Output: Intake & Output 06/11/24 06/12/24 06/13/24 06/14/24 23:59 23:59 23:59 23:59 Intake Total 50 150 Output Total 1999 Balance -1950 150 Meds/Results Medications: Active Medications Generic Name Dose Route Start Last Admin Trade Name Freq PRN Reason Stop Dose Admin Acetaminophen 650 mg 06/13/24 16:56 06/14/24 09:21 Acetaminophen 325 Mg Tablet PO 650 mg Q4H PRN Administration Mild Pain (1-3) or Fever Ceftriaxone Sodium 1 gm in 50 mls @ 100 mls/hr 06/14/24 12:00 Rocephin 1 Gm/Ns 50 Ml IVPB Q24H ARLYN Azithromycin 500 mg in 250 mls @ 250 mls/hr 06/14/24 12:00 Zithromax IVPB Q24H ARLYN Albumin Human 50 mls @ 999 mls/hr 06/13/24 17:48 Albutein IVPB 07/13/24 17:47 Q10M PRN HYPOTENSION Oseltamivir Phosphate 30 mg 06/13/24 23:50 06/14/24 01:13 Oseltamivir Phosphate 30 Mg Capsule PO 06/18/24 23:49 30 mg Q48HR ARLYN Administration Radiology Results: ITS Impressions Chest X-Ray 06/13/24 16:09 IMPRESSION: 1. Diffuse bilateral interstitial and airspace opacities most likely mild to moderate pulmonary edema related to congestive heart failure with differential including pneumonia. 2. Cardiomegaly with enlargement of the central pulmonary arteries consistent with pulmonary arterial hypertension. Chest CTA 06/13/24 16:24 IMPRESSION: 1. No pulmonary embolism. 2. Combination of mild pulmonary edema and multifocal pneumonia. 3. Cardiomegaly and enlargement of the central pulmonary arteries consistent with pulmonary arterial hypertension. 4. Unchanged mediastinal and left supraclavicular lymphadenopathy which is likely reactive. Labs Labs: Laboratory Results - last 24 hr 06/13/24 06/13/24 06/13/24 13:13 13:13 13:13 WBC 3.0 L RBC 3.54 L Hgb 10.9 L Hct 36.9 L MCV 104.2 H MCH 30.8 MCHC 29.5 L RDW 15.7 H Plt Count 57 L D MPV 11.0 H Immature Gran % (Auto) Not Reportable Neut % (Auto) Not Reportable Lymph % (Auto) Not Reportable [place] % (Auto) Not Reportable Eos % (Auto) Not Reportable Baso % (Auto) Not Reportable Lymph # (Auto) Not Reportable [place] # (Auto) Not Reportable Eos # (Auto) Not Reportable Baso # (Auto) Not Reportable Abs Immat Gran (auto) Not Reportable Absolute Neuts (auto) Not Reportable Absolute Nucleated RBC Not Reportable Total Counted 100 Neutrophils % (Manual) 74 H Band Neutrophils % 9 H Lymphocytes % (Manual) 11.0 L Monocytes % (Manual) 4 Basophils % (Manual) 2 H Nucleated RBC % Not Reportable Abs Neuts (Manual) 2.49 Abs Lymphs (Manual) 0.33 L Abs Monocytes (Manual) 0.12 Abs Basophils (Manual) 0.06 Platelet Estimate Decreased % Immature Plt Fraction 5.6 Hypochromasia 1+ Anisocytosis Schistocytes None seen PT 13.6 INR 1.0 APTT 34.8 D-Dimer 1.48 H Sodium Cancelled 136 L Potassium Cancelled 4.4 Chloride Cancelled Carbon Dioxide Anion Gap BUN Creatinine Estim Creat Clear Calc Estimated GFR Glucose POC Capillary Glucose Calcium Magnesium Total Bilirubin AST ALT Alkaline Phosphatase Troponin I NT-Pro-B Natriuret Pep Total Protein Albumin Hep Bs Antigen Hep Bs Antibody Influenza A (RT-PCR) Influenza B (RT-PCR) RSV (RT-PCR) SARS-CoV-2 RNA (RT-PCR) 06/13/24 06/13/24 06/13/24 13:13 13:13 13:13 WBC RBC Hgb Hct MCV MCH MCHC RDW Plt Count MPV Immature Gran % (Auto) Neut % (Auto) Lymph % (Auto) [place] % (Auto) Eos % (Auto) Baso % (Auto) Lymph # (Auto) [place] # (Auto) Eos # (Auto) Baso # (Auto) Abs Immat Gran (auto) Absolute Neuts (auto) Absolute Nucleated RBC Total Counted Neutrophils % (Manual) Band Neutrophils % Lymphocytes % (Manual) Monocytes % (Manual) Basophils % (Manual) Nucleated RBC % Abs Neuts (Manual) Abs Lymphs (Manual) Abs Monocytes (Manual) Abs Basophils (Manual) Platelet Estimate % Immature Plt Fraction Hypochromasia Anisocytosis Schistocytes PT INR APTT D-Dimer Sodium Potassium Chloride 94 L Carbon Dioxide Cancelled 31 H Anion Gap Cancelled 11 BUN Cancelled Creatinine Estim Creat Clear Calc Estimated GFR Glucose POC Capillary Glucose Calcium Magnesium Total Bilirubin AST ALT Alkaline Phosphatase Troponin I NT-Pro-B Natriuret Pep Total Protein Albumin Hep Bs Antigen Hep Bs Antibody Influenza A (RT-PCR) Influenza B (RT-PCR) RSV (RT-PCR) SARS-CoV-2 RNA (RT-PCR) 06/13/24 06/13/24 06/13/24 13:13 13:13 13:13 WBC RBC Hgb Hct MCV MCH MCHC RDW Plt Count MPV Immature Gran % (Auto) Neut % (Auto) Lymph % (Auto) [place] % (Auto) Eos % (Auto) Baso % (Auto) Lymph # (Auto) [place] # (Auto) Eos # (Auto) Baso # (Auto) Abs Immat Gran (auto) Absolute Neuts (auto) Absolute Nucleated RBC Total Counted Neutrophils % (Manual) Band Neutrophils % Lymphocytes % (Manual) Monocytes % (Manual) Basophils % (Manual) Nucleated RBC % Abs Neuts (Manual) Abs Lymphs (Manual) Abs Monocytes (Manual) Abs Basophils (Manual) Platelet Estimate % Immature Plt Fraction Hypochromasia Anisocytosis Schistocytes PT INR APTT D-Dimer Sodium Potassium Chloride Carbon Dioxide Anion Gap BUN 57 H D Creatinine Cancelled 6.71 H Estim Creat Clear Calc Cancelled Not Reportable Estimated GFR Cancelled Glucose POC Capillary Glucose Calcium Magnesium Total Bilirubin AST ALT Alkaline Phosphatase Troponin I NT-Pro-B Natriuret Pep Total Protein Albumin Hep Bs Antigen Hep Bs Antibody Influenza A (RT-PCR) Influenza B (RT-PCR) RSV (RT-PCR) SARS-CoV-2 RNA (RT-PCR) 06/13/24 06/13/24 06/13/24 13:13 13:13 13:13 WBC RBC Hgb Hct MCV MCH MCHC RDW Plt Count MPV Immature Gran % (Auto) Neut % (Auto) Lymph % (Auto) [place] % (Auto) Eos % (Auto) Baso % (Auto) Lymph # (Auto) [place] # (Auto) Eos # (Auto) Baso # (Auto) Abs Immat Gran (auto) Absolute Neuts (auto) Absolute Nucleated RBC Total Counted Neutrophils % (Manual) Band Neutrophils % Lymphocytes % (Manual) Monocytes % (Manual) Basophils % (Manual) Nucleated RBC % Abs Neuts (Manual) Abs Lymphs (Manual) Abs Monocytes (Manual) Abs Basophils (Manual) Platelet Estimate % Immature Plt Fraction Hypochromasia Anisocytosis Schistocytes PT INR APTT D-Dimer Sodium Potassium Chloride Carbon Dioxide Anion Gap BUN Creatinine Estim Creat Clear Calc Estimated GFR 6 L Glucose Cancelled 77 POC Capillary Glucose Calcium Cancelled 8.1 L Magnesium 2.5 H Total Bilirubin Cancelled AST ALT Alkaline Phosphatase Troponin I NT-Pro-B Natriuret Pep Total Protein Albumin Hep Bs Antigen Hep Bs Antibody Influenza A (RT-PCR) Influenza B (RT-PCR) RSV (RT-PCR) SARS-CoV-2 RNA (RT-PCR) 06/13/24 06/13/24 06/13/24 13:13 13:13 13:13 WBC RBC Hgb Hct MCV MCH MCHC RDW Plt Count MPV Immature Gran % (Auto) Neut % (Auto) Lymph % (Auto) [place] % (Auto) Eos % (Auto) Baso % (Auto) Lymph # (Auto) [place] # (Auto) Eos # (Auto) Baso # (Auto) Abs Immat Gran (auto) Absolute Neuts (auto) Absolute Nucleated RBC Total Counted Neutrophils % (Manual) Band Neutrophils % Lymphocytes % (Manual) Monocytes % (Manual) Basophils % (Manual) Nucleated RBC % Abs Neuts (Manual) Abs Lymphs (Manual) Abs Monocytes (Manual) Abs Basophils (Manual) Platelet Estimate % Immature Plt Fraction Hypochromasia Anisocytosis Schistocytes PT INR APTT D-Dimer Sodium Potassium Chloride Carbon Dioxide Anion Gap BUN Creatinine Estim Creat Clear Calc Estimated GFR Glucose POC Capillary Glucose Calcium Magnesium Total Bilirubin 0.6 AST Cancelled 48 H ALT Cancelled 21 Alkaline Phosphatase Cancelled Troponin I NT-Pro-B Natriuret Pep Total Protein Albumin Hep Bs Antigen Hep Bs Antibody Influenza A (RT-PCR) Influenza B (RT-PCR) RSV (RT-PCR) SARS-CoV-2 RNA (RT-PCR) 06/13/24 06/13/24 06/13/24 13:13 13:13 13:13 WBC RBC Hgb Hct MCV MCH MCHC RDW Plt Count MPV Immature Gran % (Auto) Neut % (Auto) Lymph % (Auto) [place] % (Auto) Eos % (Auto) Baso % (Auto) Lymph # (Auto) [place] # (Auto) Eos # (Auto) Baso # (Auto) Abs Immat Gran (auto) Absolute Neuts (auto) Absolute Nucleated RBC Total Counted Neutrophils % (Manual) Band Neutrophils % Lymphocytes % (Manual) Monocytes % (Manual) Basophils % (Manual) Nucleated RBC % Abs Neuts (Manual) Abs Lymphs (Manual) Abs Monocytes (Manual) Abs Basophils (Manual) Platelet Estimate % Immature Plt Fraction Hypochromasia Anisocytosis Schistocytes PT INR APTT D-Dimer Sodium Potassium Chloride Carbon Dioxide Anion Gap BUN Creatinine Estim Creat Clear Calc Estimated GFR Glucose POC Capillary Glucose Calcium Magnesium Total Bilirubin AST ALT Alkaline Phosphatase 144 H Troponin I 0.402 H* NT-Pro-B Natriuret Pep Cancelled > 63615 H Total Protein Cancelled 7.0 Albumin Cancelled Hep Bs Antigen Hep Bs Antibody Influenza A (RT-PCR) Influenza B (RT-PCR) RSV (RT-PCR) SARS-CoV-2 RNA (RT-PCR) 06/13/24 06/13/24 06/14/24 13:13 23:49 02:59 WBC 2.4 L RBC 3.31 L Hgb 10.3 L Hct 34.3 L MCV 103.6 H MCH 31.1 MCHC 30.0 L RDW 15.9 H Plt Count 53 L MPV 10.5 H Immature Gran % (Auto) 0.8 H Neut % (Auto) 73.3 H Lymph % (Auto) 19.2 [place] % (Auto) 6.3 Eos % (Auto) 0.0 Baso % (Auto) 0.4 Lymph # (Auto) 0.46 L [place] # (Auto) 0.2 Eos # (Auto) 0.0 Baso # (Auto) 0.0 Abs Immat Gran (auto) 0.02 Absolute Neuts (auto) 1.8 Absolute Nucleated RBC 0.000 Total Counted Neutrophils % (Manual) Band Neutrophils % Lymphocytes % (Manual) Monocytes % (Manual) Basophils % (Manual) Nucleated RBC % 0.0 Abs Neuts (Manual) Abs Lymphs (Manual) Abs Monocytes (Manual) Abs Basophils (Manual) Platelet Estimate Decreased % Immature Plt Fraction 5.2 Hypochromasia 1+ Anisocytosis 1+ Schistocytes None seen PT INR APTT D-Dimer Sodium 138 Potassium 3.9 Chloride 101 Carbon Dioxide 29 Anion Gap 8 BUN 26 H D Creatinine 3.70 H Estim Creat Clear Calc Not Reportable Estimated GFR 12 L Glucose 59 L* POC Capillary Glucose Calcium 8.0 L Magnesium 2.2 Total Bilirubin AST ALT Alkaline Phosphatase Troponin I 0.331 H* 0.339 H* NT-Pro-B Natriuret Pep Total Protein Albumin 3.9 Hep Bs Antigen Negative Hep Bs Antibody Indeterminate Influenza A (RT-PCR) Positive A Influenza B (RT-PCR) Negative RSV (RT-PCR) Negative SARS-CoV-2 RNA (RT-PCR) Positive A 06/14/24 03:46 WBC RBC Hgb Hct MCV MCH MCHC RDW Plt Count MPV Immature Gran % (Auto) Neut % (Auto) Lymph % (Auto) [place] % (Auto) Eos % (Auto) Baso % (Auto) Lymph # (Auto) [place] # (Auto) Eos # (Auto) Baso # (Auto) Abs Immat Gran (auto) Absolute Neuts (auto) Absolute Nucleated RBC Total Counted Neutrophils % (Manual) Band Neutrophils % Lymphocytes % (Manual) Monocytes % (Manual) Basophils % (Manual) Nucleated RBC % Abs Neuts (Manual) Abs Lymphs (Manual) Abs Monocytes (Manual) Abs Basophils (Manual) Platelet Estimate % Immature Plt Fraction Hypochromasia Anisocytosis Schistocytes PT INR APTT D-Dimer Sodium Potassium Chloride Carbon Dioxide Anion Gap BUN Creatinine Estim Creat Clear Calc Estimated GFR Glucose POC Capillary Glucose 104 Calcium Magnesium Total Bilirubin AST ALT Alkaline Phosphatase Troponin I NT-Pro-B Natriuret Pep Total Protein Albumin Hep Bs Antigen Hep Bs Antibody Influenza A (RT-PCR) Influenza B (RT-PCR) RSV (RT-PCR) SARS-CoV-2 RNA (RT-PCR)
--- NOTE | 2024-06-14 11:01 | P.CONNP_ITS ---
Assessment and Plan Assessment and plan (1) End stage renal disease: Code(s): N18.6 - End stage renal disease Status: Chronic Assessment and Plan: * HD tomorrow * continue T/T/S dialysis schedule while hospitalized * follow electrolytes, volume status, and clearance (2) Acute on chronic respiratory failure with hypoxemia: Code(s): J96.21 - Acute and chronic respiratory failure with hypoxia Status: Acute Assessment and Plan: * as noted on presentation * normally on 3L supplemental oxygen at baseline * however, requiring 5L on admission initially to maintain oxygen saturations * multifactorial etiology: * chronic respiratory failure * influenza infection * COVID * pneumonia * continue supportive therapy as outlined (see #3, #4, and #5) (3) Multifocal pneumonia: Code(s): J18.9 - Pneumonia, unspecified organism Status: Acute Assessment and Plan: * as noted by admission chest CT * follow culture data * on antibiotic therapy (4) COVID-19: Code(s): U07.1 - COVID-19 Status: Acute Assessment and Plan: * positive viral testing in ER * refusing steroids or remdesivir * continue supportive therapy (5) Influenza A: Code(s): J10.1 - Influenza due to other identified influenza virus with other respiratory manifestations Status: Acute Assessment and Plan: * positive viral testing in ER * on Tamiflu * continue supportive therapy (6) Anemia: Code(s): D64.9 - Anemia, unspecified Status: Chronic Assessment and Plan: * due to ESRD and likely worsened by acute infection * Epogen with HD * follow H/H (7) Hypertension: Code(s): I10 - Essential (primary) hypertension Status: Chronic Assessment and Plan: * reasonable control * follow trend of hemodynamics (8) Type 2 diabetes mellitus with diabetic polyneuropathy: Qualifiers: Diabetes mellitus correction insulin use: without correction use Q ualified Code(s): E11.42 - Type 2 diabetes mellitus with diabetic polyneuropathy Code(s): E11.42 - Type 2 diabetes mellitus with diabetic polyneuropathy Status: Chronic Assessment and Plan: * follow accu-cheks * glycemic control per hospitalists I will continue to follow the patient with you while she remains hospitalized and make further recommendations as deemed necessary. Thank you for allowing me to participate in the care of this patient. L History of Present Illness Reason for Consult Consult date: 06/14/24 Reason for consult: end stage renal disease Chief Complaint Chief complaint: COVID, flu, pneumonia, ESRD, elevated troponin History of Present Illness Narrative: The patient is an 78-year-old female with extensive past past medical history as outlined below who presented to [facility] Emergency Room due to hypoxia. Most of the information that I have obtained is from review of the electronic medical record as well as discussion with the physician/nurses involved in the patient's care as difficult to get a full and complete history from the patient. Apparently, the patient was recently diagnosed with influenza by home testing earlier this week. This is further complicated by the fact that other family members apparently had both influenza and COVID as well. She presented to her outpatient dialysis unit/ clinic for her regular scheduled dialysis treatment but she was noted be quite hypoxic on arrival there. Apparently, she is usually on 3 L of oxygen by nasal cannula at baseline but required 5 L to get her oxygen saturations closer to 90%. Given his change in her condition, EMS was called and she was subsequently transported to the emergency room for further assessment. Workup and evaluation emergency room demonstrated the patient be hemodynamically stable and afebrile and her oxygen saturations actually stabilized back on her normal chronic 3 L of oxygen by nasal cannula. Her exam was concerning for expiratory wheezes and rhonchi which did not complain of acute shortness of breath. Routine blood tests were done which demonstrated labs consistent with her known history of end-stage renal disease by chemistry and relative anemia that also goes along with her chronic kidney disease. Given her issues with hypoxia as mentioned, a CT scan of the chest was done with contrast which did not demonstrate a pulmonary embolism but did reveal pulmonary edema and multifocal pneumonia. As well as cardiomegaly and enlargement of the central pulmonary arteries consistent with pulmonary artery hypertension. Viral screens for influenza as well as COVID were positive in the ER. After appropriate culture were obtained, she was started on antibiotics as well as Tamiflu and there was a plan to start steroids and remdesivir but the patient refused. She was subsequently admitted to the hospital for further evaluation and therapy. Since her admission, her respiratory status seems to be doing somewhat better in general. Renal consultation was requested due to her end-stage renal disease. The patient normally dialyzes on a Monday, , Monday schedule at [facility] under the care of Dr. Patel Freeman. From a dialysis perspective, she is usually compliant with her treatments and has relative stability in her monthly labs with regard to her ESRD parameters and does not have any issues or problems with significant fluid overload. However, she does not tolerate aggressive fluid removal/ultrafiltration due to severe cramping. She does have issues with chronic ower extremity edema but this has been an ongoing/chronic issue. She received dialysis yesterday afternoon/evening to maintain her outpatient dialysis schedule. Currently, at the time my visit, she is in no apparent distress. Review of Systems 2 Review of Systems: As per HPI. [facility] Past Medical History Medical History Primary localized osteoarthritis of knees, bilateral Pneumonia Depression Hypothyroidism Gout Arthritis Nephrolithiasis Chronic kidney disease Surgical History Surgical History H/O inguinal hernia repair Hx of tonsillectomy Family History Family History Other Diabetes mellitus Heart disease Hypertension Social History Social History Social History: Patient lives with her daughter, grandson daughter's kids and her daughter daughters kids. Patient's did of diabetes in 1985. Patient wishes to be a full code does like her daughter to be her surrogate. She also does have 3 dogs and 2 cats that live with her as well. 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 Gender identity (if verbalized by the patient): Female Sexual Orientation (if Verbalized by the Patient): Straight or Heterosexual Spiritual care concerns: Yes Agree to blood products: Yes Meds Home Medications and Allergies Home Medications ?Medication ?Instructions ?Recorded ?Confirmed ?Type vitamin B complex and vitamin C 1 cap PO DAILY 12/04/21 06/13/24 History no.20-folic acid 1 mg capsule (Triphrocaps) cholecalciferol (vitamin D3) 50 50 mcg PO DAILY 01/11/22 06/13/24 History mcg (2,000 unit) capsule vitamin E (dl, acetate) 180 mg 180 mg PO DAILY 01/11/22 06/13/24 History (400 unit) capsule atorvastatin 40 mg tablet 40 mg PO DAILY 10/12/23 06/13/24 History sertraline 50 mg tablet 50 mg PO HS 11/06/23 06/13/24 History linagliptin 5 mg tablet (Tradjenta) 5 mg PO DAILY 01/26/24 06/13/24 History mirtazapine 30 mg tablet 30 mg PO QHS #90 tabs 01/31/24 06/13/24 Rx dicyclomine 10 mg capsule 10 mg PO BID #60 caps 04/17/24 06/13/24 Rx levothyroxine 112 mcg tablet See Rx Instructions .Route 05/02/24 06/13/24 Rx .COMPLEX #90 tabs calcium acetate(phosphat bind) 667 667 mg PO TIDWM #150 caps 05/06/24 06/13/24 Rx mg capsule Allergies Allergy/AdvReac Type Severity Reaction Status Date / Time ibuprofen AdvReac Mild Abdominal Verified 01/31/24 12:44 Pain Vital Signs Vital Signs Temp Pulse Resp BP Pulse Ox O2 Del Method O2 Flow Rate 06/14/24 10:20 98.2 F 06/14/24 10:00 85 06/14/24 09:21 100.7 F H 06/14/24 08:00 86 06/14/24 08:00 100 Nasal Cannula 3 06/14/24 08:00 100.7 F H 85 18 104/51 L 100 06/14/24 04:00 78 06/14/24 04:00 95 Nasal Cannula 3 06/14/24 04:00 98.3 F 80 18 119/99 H 98 06/14/24 00:00 78 06/14/24 00:00 91 06/13/24 23:52 95 Nasal Cannula 3 06/13/24 23:00 98.5 F 80 20 122/65 98 06/13/24 22:33 98.1 F 88 18 147/56 H 06/13/24 22:18 51 L 134/47 L 06/13/24 22:00 59 L 153/97 H 06/13/24 21:45 73 183/111 H 06/13/24 21:30 81 138/87 06/13/24 21:15 82 140/77 06/13/24 21:00 71 111/45 L 06/13/24 20:45 67 97/48 L 06/13/24 20:30 83 201/99 H 06/13/24 20:15 83 190/88 H 06/13/24 20:00 87 179/106 H 06/13/24 19:45 86 126/97 H 06/13/24 19:30 83 124/74 06/13/24 19:18 60 128/59 L 06/13/24 19:07 98.2 F 78 18 107/72 06/13/24 19:07 3 Exam 2 Narrative: GENERAL APPEARANCE: elderly but well developed/well nourished female in no acute distress HEENT: normocephalic, atraumatic, normal conjunctiva and sclera, nares patient NECK: no lymphadenopathy, thyromegaly, or JVD MOUTH: normal lips, teeth, and gums CARDIOVASCULAR: RRR, normal S1 and S2, no rub RESPIRATORY: coarse breath sounds; diminished/decreased at bases ABDOMEN: soft, nontender, nondistended, positive bowel sounds present EXTREMITIES: no evidence of cyanosis, clubbing; chronic edema changes NEUROLOGICAL: alert and oriented x 3; CN II - XII intact bilaterally; no focal deficits noted Results Lab Results 06/15/24 05:47 06/18/24 07:39 Lab results: Most recent lab results Calcium 8.0 mg/dL (8.4-10.2) L 06/14/24 02:59 Magnesium 2.2 mg/dL (1.6-2.3) 06/14/24 02:59
[2024-06-14 12:04] LABS: Glucose Point of Care 79 mg/dl (65-105)
[2024-06-14] MEDS: CHOLECALCIFEROL 1,000 UNITS TABLET 2000 UNITS PO (12:04)
[2024-06-14] MEDS: LEVOTHYROXINE SODIUM 112 MCG TABLET BY MOUTH (12:04)
[2024-06-14] MEDS: CALCIUM ACETATE 667 MG TABLET PO ×2 (12:04→16:45)
[2024-06-14] MEDS: ATORVASTATIN 40 MG TABLET PO (12:11)
[2024-06-14] MEDS: VITAMIN B CMPLX/VIT C/FOLIC AC 1 CAPSULE 1 CAP PO (12:11)
[2024-06-14] MEDS: AZITHROMYCIN 500 MG/NS 250 ML 500 MG/250 ML BAG 250 MG IVPB (14:14)
[2024-06-14] MEDS: DICYCLOMINE HCL 10 MG CAPSULE PO (16:44)
[2024-06-14 17:33] LABS: Glucose Point of Care 76 mg/dl (65-105)
[2024-06-14 18:47] LABS: MRSA (PCR) NOT DETECTED (NOT DETECTE)
[2024-06-14 20:13] LABS: Glucose Point of Care 113 mg/dl (65-105)
[2024-06-14] MEDS: MIRTAZAPINE 30 MG TABLET PO (20:28)
[2024-06-14] MEDS: SERTRALINE HCL 50 MG TABLET PO (20:28)
--- NOTE | 2024-06-14 23:06 | PC.NURSE ---
Patient moved to 301. Report was called to Fabricio SALAS, she was moved via bed, and all belongings were sent with her. Family notified.
[2024-06-15] VITALS (21 sets, daily range): BP systolic 89–128; BP diastolic 30–67; PULSE 75–86; RESP 16–22; TEMP 36–37; O2SAT 91–100
--- NOTE | 2024-06-15 00:20 | ADMGEN ---
This patient, Gisele Centeno, was transferred to [facility] Surg Room 301-01 from IMU 203. Patient/family oriented to hospital policies and general routines including ID bracelet, bed and alarms, visiting hours, pain management, procedures, bathroom and other care routines, personal items, smoking policy, room service/diet, and visiting hours. Information on how to activate the Rapid Response Team has been discussed. Patient/Family are encouraged to report perceived risks to care and to ask questions if they do not understand what they are told or what they should do.
[2024-06-15] MEDS: LEVOTHYROXINE SODIUM 112 MCG TABLET BY MOUTH (06:20)
[2024-06-15 06:49] LABS: Basophils Percent Auto 0.3 % (0.2-1.2); Eosinophils Percent Auto 0.3 % (0-4.4); Hematocrit 34.4 % (37.0-47.0); Immature Granulocyte Absolute 0.02 K/mm3 (0.00-0.031); Immature Granulocyte Percent A 0.7 % (0-0.5); Immature Platelet Fraction Pct 6.1 % (0.9-11.2); Lymphocytes Absolute Auto 0.87 K/mm3 (0.9-3.2); Lymphocytes Percent Auto 28.5 % (18.3-44.2); Mean Corpuscular HGB Conc 29.1 g/dl (32-36); Mean Corpuscular Hemoglobin 30.6 pg (26-34); Mean Corpuscular Volume 105.2 fl (80-100); Mean Platelet Volume 11.7 fl (7.4-10.4); Monocytes Absolute Auto 0.2 K/mm3 (0.1-0.6); Monocytes Percent Auto 5.9 % (2.6-8.5); Neutrophils Percent Auto 64.3 % (45.5-73.1); Platelet Count Result 60 k/mm3 (150-375); Red Blood Count 3.27 M/mm3 (4.2-5.4); Red Cell Distribution Width 15.9 % (11.5-14.5); White Blood Count 3.1 K/mm3 (4.5-10.0)
[2024-06-15 07:03] LABS: Alanine Aminotransferase 15 U/L (6-35); Albumin Level 3.1 g/dL (3.5-5.1); Alkaline Phosphatase 100 U/L (38-126); Anion Gap 10 mmol/L (4-12); Aspartate Amino Transferase 44 U/L (14-36); Bilirubin,Total 0.6 mg/dL (0.2-1.3); Blood Urea Nitrogen 39 mg/dL (7-17); Calcium 7.8 mg/dL (8.4-10.2); Carbon Dioxide 24 mmol/L (22-30); Chloride 100 mmol/L (98-107); Estimated Glomerular Filt Rate 7; Glucose 65 mg/dL (65-110); Magnesium 2.4 mg/dL (1.6-2.3); Potassium 4.3 mmol/L (3.4-5.0); Sodium 134 mmol/L (137-145)
[2024-06-15 08:19] LABS: Glucose Point of Care 71 mg/dl (65-105)
[2024-06-15 08:25] LABS: Anisocytosis 1+; Hypochromasia 1+; Platelet Estimate Decreased (Adequate); Schistocytes None Seen
[2024-06-15] MEDS: DICYCLOMINE HCL 10 MG CAPSULE PO (08:48)
[2024-06-15] MEDS: VITAMIN B CMPLX/VIT C/FOLIC AC 1 CAPSULE 1 CAP PO (08:48)
[2024-06-15] MEDS: ATORVASTATIN 40 MG TABLET PO (08:48)
[2024-06-15] MEDS: CHOLECALCIFEROL 1,000 UNITS TABLET 2000 UNITS PO (08:48)
[2024-06-15] MEDS: OSELTAMIVIR PHOSPHATE 30 MG CAPSULE PO (08:48)
[2024-06-15] MEDS: CALCIUM ACETATE 667 MG TABLET PO ×2 (08:48→12:43)
[2024-06-15] MEDS: VITAMIN E 400 UNIT CAPSULE PO (10:08)
--- NOTE | 2024-06-15 11:29 | PM.IMPN ---
Progress Note: A&P Assessment and Plan (1) Influenza A: Code(s): J10.1 - Influenza due to other identified influenza virus with other respiratory manifestations Status: Acute (2) COVID-19: Code(s): U07.1 - COVID-19 Status: Acute (3) Acute on chronic respiratory failure with hypoxemia: Code(s): J96.21 - Acute and chronic respiratory failure with hypoxia Status: Acute (4) Multifocal pneumonia: Code(s): J18.9 - Pneumonia, unspecified organism Status: Acute Plan Patient presented with low oxygen level. Patient was diagnosed with influenza a on Monday via home test. Several other family members had influenza and COVID at home. Chronic oxygen at 3 L via nasal cannula. Also associated shortness of breath. Oxygen requirement has increased to 5 L. Attempted to go to dialysis however oxygen was low again and hence was sent to ED for evaluation. Associated cough no fever. In the ED vitals were stable afebrile oxygen saturation is adequate on 3 L oxygen via nasal cannula. Laboratory studies shows WBC of 3 hemoglobin of 10.9 platelet of 57. Creatinine was 6.7 consistent with end-stage renal disease. Electrolytes were unremarkable. D-dimer was elevated 1.48. BNP was more than 30,000 troponin was elevated at 0.402. Influenza a and COVID positive. Started on Tamiflu for influenza which will be continued as ordered Patient refused to get steroid or remdesivir for COVID infection. Chest x-ray revealed multifocal pneumonia.. CTA showed no evidence of PE but demonstrated multifocal pneumonia. Patient has been started on ceftriaxone and azithromycin. MRSA PCR pending. Blood culture were obtained. Elevated troponin likely demand ischemia due to hypoxia. Flat trend 0.402-0.33 1-0.339 Thrombocytopenia likely due to viral infection. Continue to monitor Acute hypoxic on chronic respiratory failure on oxygen 3 L at baseline ESRD on dialysis Monday nephrology has been consulted for inpatient hemodialysis Hypothyroidism Type 2 diabetes Hypertension Hyperlipidemia Anxiety depression Osteoarthritis Gout Acute on chronic thrombocytopenia Leukopenia Anemia DVT prophylaxis SCDs due to thrombocytopenia Code status full code Subjective Date/time seen: 06/15/24 11:29 Interval history: No overnight events. Still has cough intermittent shortness of breath. No nausea vomiting. Oxygen requirement at 3 L which is stable. Review of Systems Review of Systems: All systems reviewed & are unremarkable except as noted in HPI and below (HPI) Exam Narrative: GENERAL: Well-appearing, well-nourished, and in no acute distress. HEAD: Normocephalic, atraumatic. EYES: PERRLA and EOMI. ENT: Nares clear, no rhinorrhea or epistaxis. Mucous membranes moist. NECK: Supple. CHEST: Diminished breath sounds bilaterally No respiratory distress. HEART: Regular rate and rhythm. No murmur heard. Normal peripheral pulses. ABDOMEN: Soft, nontender, nondistended, normal active bowel sounds. EXTREMITIES: Normal range of motion. No edema. SKIN: Warm, dry, no rash. NEURO: No focal deficits. Alert and oriented x3. PSYCH: Normal mood and affect. Objective Data Vital Signs Vital Signs: Vital Signs - 24 hr 06/14/24 12:00 06/14/24 12:00 06/14/24 12:00 Temperature 98.3 F Pulse Rate 80 77 Respiratory Rate 16 Blood Pressure 92/49 L Pulse Oximetry 98 98 Oxygen Delivery Nasal Cannula Oxygen Flow Rate 3 06/14/24 14:00 06/14/24 16:00 06/14/24 20:00 Temperature 97.7 F Pulse Rate 75 80 Respiratory Rate 20 Blood Pressure 122/78 Pulse Oximetry 96 96 Oxygen Delivery Nasal Cannula Oxygen Flow Rate 3 06/14/24 23:00 06/15/24 06:00 Temperature 97.3 F L 97.2 F L Pulse Rate 84 85 Respiratory Rate 20 20 Blood Pressure 100/36 L 121/49 L Pulse Oximetry 94 99 Oxygen Delivery Oxygen Flow Rate Intake/Output Intake/Output: Intake & Output 06/12/24 06/13/24 06/14/24 06/15/24 23:59 23:59 23:59 23:59 Intake Total 50 1000 630 Output Total 2000 0 Balance -1950 1000 630 Meds/Results Medications: Active Medications Generic Name Dose Route Start Last Admin Trade Name Freq PRN Reason Stop Dose Admin Acetaminophen 650 mg 06/13/24 16:56 06/14/24 09:21 Acetaminophen 325 Mg Tablet PO 650 mg Q4H PRN Administration Mild Pain (1-3) or Fever Atorvastatin Calcium 40 mg 06/14/24 10:00 06/15/24 08:48 Atorvastatin 40 Mg Tablet PO 40 mg DAILY ARLYN Administration Calcium Acetate 667 mg 06/14/24 12:00 06/15/24 08:48 Calcium Acetate 667 Mg Tablet PO 667 mg TIDWM ARLYN Administration Dicyclomine HCl 10 mg 06/14/24 17:00 06/15/24 08:48 Dicyclomine Hcl 10 Mg Capsule PO 10 mg BID ARLYN Administration Epoetin Vini-epbx 10,000 units 06/15/24 18:24 Epoetin Vini-Epbx 10,000 Units/Ml Vial IV PUSH 06/15/24 18:25 ONCE ONE Ceftriaxone Sodium 1 gm in 50 mls @ 100 mls/hr 06/14/24 12:00 06/14/24 12:03 Rocephin 1 Gm/Ns 50 Ml IVPB 100 mls/hr Q24H ARLYN Administration Azithromycin 500 mg in 250 mls @ 250 mls/hr 06/14/24 12:00 06/14/24 14:14 Zithromax IVPB 250 mls/hr Q24H ARLYN Administration Albumin Human 50 mls @ 999 mls/hr 06/13/24 17:48 Albutein IVPB 07/13/24 17:47 Q10M PRN HYPOTENSION Levothyroxine Sodium 112 mcg 06/14/24 10:00 06/15/24 06:20 Levothyroxine Sodium 112 Mcg Tablet BY MOUTH 112 mcg DAILY@0630 ARLYN Administration Mirtazapine 30 mg 06/14/24 21:00 06/14/24 20:28 Mirtazapine 30 Mg Tablet PO 30 mg QHS ARLYN Administration Oseltamivir Phosphate 30 mg 06/13/24 23:50 06/15/24 08:48 Oseltamivir Phosphate 30 Mg Capsule PO 06/18/24 23:49 30 mg Q48HR ARLYN Administration Sertraline HCl 50 mg 06/14/24 21:00 06/14/24 20:28 Sertraline Hcl 50 Mg Tablet PO 50 mg HS ARLYN Administration Sitagliptin Phosphate 100 mg 06/14/24 10:10 06/15/24 08:47 Sitagliptin Phosphate 100 Mg Tablet PO 07/15/24 10:09 Not Given DAILY ARLYN Vitamin B Complex/Folic Acid 1 cap 06/14/24 10:00 06/15/24 08:48 Vitamin B Cmplx/Vit C/Folic Ac 1 Capsule PO 1 cap DAILY ARLYN Administration Vitamin D 2,000 units 06/14/24 10:00 06/15/24 08:48 Cholecalciferol 1,000 Units Tablet PO 2,000 units DAILY ARLYN Administration Vitamin E 400 unit 06/15/24 09:00 06/15/24 10:08 Vitamin E 400 Unit Capsule PO 400 unit DAILY ARLYN Administration Radiology Results: ITS Impressions Chest X-Ray 06/13/24 16:09 IMPRESSION: 1. Diffuse bilateral interstitial and airspace opacities most likely mild to moderate pulmonary edema related to congestive heart failure with differential including pneumonia. 2. Cardiomegaly with enlargement of the central pulmonary arteries consistent with pulmonary arterial hypertension. Chest CTA 06/13/24 16:24 IMPRESSION: 1. No pulmonary embolism. 2. Combination of mild pulmonary edema and multifocal pneumonia. 3. Cardiomegaly and enlargement of the central pulmonary arteries consistent with pulmonary arterial hypertension. 4. Unchanged mediastinal and left supraclavicular lymphadenopathy which is likely reactive. Labs Labs: Laboratory Results - last 24 hr 06/14/24 06/14/24 06/14/24 12:01 17:09 17:32 WBC RBC Hgb Hct MCV MCH MCHC RDW Plt Count MPV Immature Gran % (Auto) Neut % (Auto) Lymph % (Auto) [place] % (Auto) Eos % (Auto) Baso % (Auto) Lymph # (Auto) [place] # (Auto) Eos # (Auto) Baso # (Auto) Abs Immat Gran (auto) Absolute Neuts (auto) Absolute Nucleated RBC Nucleated RBC % Platelet Estimate % Immature Plt Fraction Hypochromasia Anisocytosis Schistocytes Sodium Potassium Chloride Carbon Dioxide Anion Gap BUN Creatinine Estim Creat Clear Calc Estimated GFR Glucose POC Capillary Glucose 79 76 Calcium Magnesium Total Bilirubin AST ALT Alkaline Phosphatase Total Protein Albumin Nasal MRSA (PCR) Not detected 06/14/24 06/15/24 06/15/24 20:05 05:47 08:17 WBC 3.1 L RBC 3.27 L Hgb 10.0 L Hct 34.4 L MCV 105.2 H MCH 30.6 MCHC 29.1 L RDW 15.9 H Plt Count 60 L MPV 11.7 H Immature Gran % (Auto) 0.7 H Neut % (Auto) 64.3 Lymph % (Auto) 28.5 [place] % (Auto) 5.9 Eos % (Auto) 0.3 Baso % (Auto) 0.3 Lymph # (Auto) 0.87 L [place] # (Auto) 0.2 Eos # (Auto) 0.0 Baso # (Auto) 0.0 Abs Immat Gran (auto) 0.02 Absolute Neuts (auto) 2.0 Absolute Nucleated RBC 0.000 Nucleated RBC % 0.0 Platelet Estimate Decreased % Immature Plt Fraction 6.1 Hypochromasia 1+ Anisocytosis 1+ Schistocytes None seen Sodium 134 L Potassium 4.3 Chloride 100 Carbon Dioxide 24 Anion Gap 10 BUN 39 H D Creatinine 5.52 H Estim Creat Clear Calc Not Reportable Estimated GFR 7 L Glucose 65 POC Capillary Glucose 113 H 71 Calcium 7.8 L Magnesium 2.4 H Total Bilirubin 0.6 AST 44 H ALT 15 Alkaline Phosphatase 100 Total Protein 6.0 L Albumin 3.1 L Nasal MRSA (PCR)
[2024-06-15 12:01] LABS: Glucose Point of Care 82 mg/dl (65-105)
[2024-06-15] MEDS: AZITHROMYCIN 500 MG/NS 250 ML 500 MG/250 ML BAG 250 MG IVPB (12:43)
[2024-06-15] MEDS: LIDOCAINE/PRILOCAINE CREAM 2.5-2.5% TUBE 1 EACH TOPICAL (15:29)
--- NOTE | 2024-06-15 16:50 | P.PNNP_ITS ---
Progress Note: A&P Assessment and Plan (1) End stage renal disease: Code(s): N18.6 - End stage renal disease Status: Chronic Assessment and Plan: * HD today * continue T/T/S dialysis schedule while hospitalized * follow electrolytes, volume status, and clearance (2) Acute on chronic respiratory failure with hypoxemia: Code(s): J96.21 - Acute and chronic respiratory failure with hypoxia Status: Acute Assessment and Plan: * as noted on presentation * normally on 3L supplemental oxygen at baseline * however, requiring 5L on admission to maintain oxygen saturations * multifactorial etiology: * chronic respiratory failure * influenza infection * COVID * pneumonia * continue supportive therapy as outlined (see #3, #4, and #5) (3) Multifocal pneumonia: Code(s): J18.9 - Pneumonia, unspecified organism Status: Acute Assessment and Plan: * as noted by admission chest CT * follow culture data * on antibiotic therapy (4) COVID-19: Code(s): U07.1 - COVID-19 Status: Acute Assessment and Plan: * positive viral testing in ER * refusing steroids or remdesivir * continue supportive therapy (5) Influenza A: Code(s): J10.1 - Influenza due to other identified influenza virus with other respiratory manifestations Status: Acute Assessment and Plan: * positive viral testing in ER * on Tamiflu * continue supportive therapy (6) Anemia: Code(s): D64.9 - Anemia, unspecified Status: Chronic Assessment and Plan: * due to ESRD and likely worsened by acute infection * Epogen with HD * follow H/H (7) Hypertension: Code(s): I10 - Essential (primary) hypertension Status: Chronic Assessment and Plan: * reasonable control * follow trend of hemodynamics (8) Type 2 diabetes mellitus with diabetic polyneuropathy: Qualifiers: Diabetes mellitus alf insulin use: without exterminator helper termite use Q ualified Code(s): E11.42 - Type 2 diabetes mellitus with diabetic polyneuropathy Code(s): E11.42 - Type 2 diabetes mellitus with diabetic polyneuropathy Status: Chronic Assessment and Plan: * follow accu-cheks * glycemic control per hospitalists Will continue to follow. L Subjective Date/time seen: 06/15/24 16:50 Interval history: Follow-up for end stage renal disease on hemodialysis. Tolerating dialysis treatment at the time of my visit (seen on HD at 4:40PM); breathing/respiratory status seems relatively stable when seen; no issues/events overnight or earlier this morning; no acute distress noted. Exam 2 Narrative: General: elderly female in NAD Heart: normal S1 and S2; no rub Lungs: coarse breath sounds; diminished at bases Abdomen: soft, nontender, nondistended, positive bowel sounds Extremities: trace - 1+ bilateral edema (chronic) in LEs Skin: warm and dry Objective Data Vital Signs Vital Signs: Vital Signs Temp Pulse Resp BP Pulse Ox O2 Del Method O2 Flow Rate 06/15/24 14:00 97.2 F L 84 22 H 91/56 L 98 06/15/24 08:00 98 Nasal Cannula 3 06/15/24 06:00 97.2 F L 85 20 121/49 L 99 06/14/24 23:00 97.3 F L 84 20 100/36 L 94 06/14/24 20:00 96 Nasal Cannula 3 Intake/Output Intake/Output: Intake & Output 06/12/24 06/13/24 06/14/24 06/15/24 23:59 23:59 23:59 23:59 Intake Total 50 1300 980 Output Total 2000 0 Balance -1950 1300 980 Meds/Results Medications: Active Medications Generic Name Dose Route Start Last Admin Trade Name Freq PRN Reason Stop Dose Admin Acetaminophen 650 mg 06/13/24 16:56 06/14/24 09:21 Acetaminophen 325 Mg Tablet PO 650 mg Q4H PRN Administration Mild Pain (1-3) or Fever Atorvastatin Calcium 40 mg 06/14/24 10:00 06/15/24 08:48 Atorvastatin 40 Mg Tablet PO 40 mg DAILY ARLYN Administration Calcium Acetate 667 mg 06/14/24 12:00 06/15/24 12:43 Calcium Acetate 667 Mg Tablet PO 667 mg TIDWM ARLYN Administration Dicyclomine HCl 10 mg 06/14/24 17:00 06/15/24 08:48 Dicyclomine Hcl 10 Mg Capsule PO 10 mg BID ARLYN Administration Epoetin Vini-epbx 10,000 units 06/15/24 18:24 Epoetin Vini-Epbx 10,000 Units/Ml Vial IV PUSH 06/15/24 18:25 ONCE ONE Ceftriaxone Sodium 1 gm in 50 mls @ 100 mls/hr 06/14/24 12:00 06/15/24 12:43 Rocephin 1 Gm/Ns 50 Ml IVPB 100 mls/hr Q24H ARLYN Administration Azithromycin 500 mg in 250 mls @ 250 mls/hr 06/14/24 12:00 06/15/24 12:43 Zithromax IVPB 250 mls/hr Q24H ARLYN Administration Albumin Human 50 mls @ 999 mls/hr 06/13/24 17:48 Albutein IVPB 07/13/24 17:47 Q10M PRN HYPOTENSION Levothyroxine Sodium 112 mcg 06/14/24 10:00 06/15/24 06:20 Levothyroxine Sodium 112 Mcg Tablet BY MOUTH 112 mcg DAILY@0630 ARLYN Administration Mirtazapine 30 mg 06/14/24 21:00 06/14/24 20:28 Mirtazapine 30 Mg Tablet PO 30 mg QHS ARLYN Administration Oseltamivir Phosphate 30 mg 06/13/24 23:50 06/15/24 08:48 Oseltamivir Phosphate 30 Mg Capsule PO 06/18/24 23:49 30 mg Q48HR ARLYN Administration Sertraline HCl 50 mg 06/14/24 21:00 06/14/24 20:28 Sertraline Hcl 50 Mg Tablet PO 50 mg HS ARLYN Administration Sitagliptin Phosphate 100 mg 06/14/24 10:10 06/15/24 08:47 Sitagliptin Phosphate 100 Mg Tablet PO 07/15/24 10:09 Not Given DAILY ARLYN Vitamin B Complex/Folic Acid 1 cap 06/14/24 10:00 06/15/24 08:48 Vitamin B Cmplx/Vit C/Folic Ac 1 Capsule PO 1 cap DAILY ARLYN Administration Vitamin D 2,000 units 06/14/24 10:00 06/15/24 08:48 Cholecalciferol 1,000 Units Tablet PO 2,000 units DAILY ARLYN Administration Vitamin E 400 unit 06/15/24 09:00 06/15/24 10:08 Vitamin E 400 Unit Capsule PO 400 unit DAILY ARLYN Administration Radiology Results: ITS Impressions Chest X-Ray 06/13/24 16:09 IMPRESSION: 1. Diffuse bilateral interstitial and airspace opacities most likely mild to moderate pulmonary edema related to congestive heart failure with differential including pneumonia. 2. Cardiomegaly with enlargement of the central pulmonary arteries consistent with pulmonary arterial hypertension. Chest CTA 06/13/24 16:24 IMPRESSION: 1. No pulmonary embolism. 2. Combination of mild pulmonary edema and multifocal pneumonia. 3. Cardiomegaly and enlargement of the central pulmonary arteries consistent with pulmonary arterial hypertension. 4. Unchanged mediastinal and left supraclavicular lymphadenopathy which is likely reactive. Labs Labs: Laboratory Tests 06/15/24 05:47 06/15/24 05:47 Calcium 7.8 L Magnesium 2.4 H Total Bilirubin 0.6 AST 44 H ALT 15 Alkaline Phosphatase 100 Total Protein 6.0 L Albumin 3.1 L Microbiology 06/13/24 17:40 Blood Blood Culture - Preliminary 06/13/24 17:42 Blood Blood Culture - Preliminary
[2024-06-15] MEDS: ALBUMIN HUMAN 25% 12.5 GM/50ML 50 ML IVPB (17:15)
[2024-06-15] MEDS: EPOETIN ALFA-EPBX 10,000 UNITS/ML VIAL 10000 UNITS IV PUSH (19:43)
[2024-06-15] MEDS: MIRTAZAPINE 30 MG TABLET PO (20:32)
[2024-06-15] MEDS: SERTRALINE HCL 50 MG TABLET PO (20:32)
[2024-06-15] MEDS: SODIUM CHLORIDE 0.9% IV 1,000 ML 999 ML IV CONT (20:53)
[2024-06-15] MEDS: HEPARIN SODIUM 1,000 UNITS/ML VIAL 6000 UNITS (20:54)
[2024-06-15 21:11] LABS: Glucose Point of Care 73 mg/dl (65-105)
[2024-06-16 06:00] VITALS: BP 114/53; PULSE 84; RESP 22; TEMP 36.3; O2SAT 100
[2024-06-16] MEDS: LEVOTHYROXINE SODIUM 112 MCG TABLET BY MOUTH (06:54)
[2024-06-16 07:46] LABS: Glucose Point of Care 78 mg/dl (65-105)
[2024-06-16 08:00] VITALS: O2SAT 97
[2024-06-16] MEDS: ATORVASTATIN 40 MG TABLET PO (08:37)
[2024-06-16] MEDS: DICYCLOMINE HCL 10 MG CAPSULE PO ×2 (08:37→17:07)
[2024-06-16] MEDS: VITAMIN E 400 UNIT CAPSULE PO (08:37)
[2024-06-16] MEDS: CALCIUM ACETATE 667 MG TABLET PO ×3 (08:37→17:07)
[2024-06-16] MEDS: CHOLECALCIFEROL 1,000 UNITS TABLET 2000 UNITS PO (08:37)
[2024-06-16] MEDS: VITAMIN B CMPLX/VIT C/FOLIC AC 1 CAPSULE 1 CAP PO (08:38)
[2024-06-16 08:40] VITALS: BP 107/66; PULSE 80; O2SAT 97
[2024-06-16 12:06] LABS: Glucose Point of Care 196 mg/dl (65-105)
--- NOTE | 2024-06-16 12:17 | PM.IMPN ---
Progress Note: A&P Assessment and Plan (1) Influenza A: Code(s): J10.1 - Influenza due to other identified influenza virus with other respiratory manifestations Status: Acute (2) COVID-19: Code(s): U07.1 - COVID-19 Status: Acute (3) Acute on chronic respiratory failure with hypoxemia: Code(s): J96.21 - Acute and chronic respiratory failure with hypoxia Status: Acute (4) Multifocal pneumonia: Code(s): J18.9 - Pneumonia, unspecified organism Status: Acute Plan Patient presented with low oxygen level. Patient was diagnosed with influenza a on Monday via home test. Several other family members had influenza and COVID at home. Chronic oxygen at 3 L via nasal cannula. Also associated shortness of breath. Oxygen requirement has increased to 5 L. Attempted to go to dialysis however oxygen was low again and hence was sent to ED for evaluation. Associated cough no fever. In the ED vitals were stable afebrile oxygen saturation is adequate on 3 L oxygen via nasal cannula. Laboratory studies shows WBC of 3 hemoglobin of 10.9 platelet of 57. Creatinine was 6.7 consistent with end-stage renal disease. Electrolytes were unremarkable. D-dimer was elevated 1.48. BNP was more than 30,000 troponin was elevated at 0.402. Influenza a and COVID positive. Started on Tamiflu for influenza which will be continued as ordered Patient refused to get steroid or remdesivir for COVID infection. Chest x-ray revealed multifocal pneumonia.. CTA showed no evidence of PE but demonstrated multifocal pneumonia. Patient has been started on ceftriaxone and azithromycin. MRSA PCR negative. Blood culture negative to date. Elevated troponin likely demand ischemia due to hypoxia. Flat trend 0.402-0.33 1-0.339 Thrombocytopenia likely due to viral infection. Continue to monitor Acute hypoxic on chronic respiratory failure on oxygen 3 L at baseline ESRD on dialysis Monday nephrology has been consulted for inpatient hemodialysis Hypothyroidism Type 2 diabetes Hypertension Hyperlipidemia Anxiety depression Osteoarthritis Gout Acute on chronic thrombocytopenia Leukopenia Anemia DVT prophylaxis SCDs due to thrombocytopenia Code status full code Subjective Date/time seen: 06/16/24 12:17 Interval history: No overnight events. Shortness of breath with exertion. Oxygen requirement stable. Cough with expectoration persist. Review of Systems Review of Systems: All systems reviewed & are unremarkable except as noted in HPI and below (HPI) Exam Narrative: GENERAL: Well-appearing, well-nourished, and in no acute distress. HEAD: Normocephalic, atraumatic. EYES: PERRLA and EOMI. ENT: Nares clear, no rhinorrhea or epistaxis. Mucous membranes moist. NECK: Supple. CHEST: Coarse breath sounds bilaterally No respiratory distress. No wheezes HEART: Regular rate and rhythm. No murmur heard. Normal peripheral pulses. ABDOMEN: Soft, nontender, nondistended, normal active bowel sounds. EXTREMITIES: Normal range of motion. No edema. SKIN: Warm, dry, no rash. NEURO: No focal deficits. Alert and oriented x3. PSYCH: Normal mood and affect. Objective Data Vital Signs Vital Signs: Vital Signs - 24 hr 06/15/24 14:00 06/15/24 16:09 06/15/24 16:09 Temperature 97.2 F L 97.7 F Pulse Rate 84 82 Respiratory Rate 22 H 16 Blood Pressure 91/56 L 111/62 Pulse Oximetry 98 100 Oxygen Delivery Oxygen Flow Rate 3 06/15/24 16:27 06/15/24 16:30 06/15/24 16:45 Temperature Pulse Rate 84 86 86 Respiratory Rate Blood Pressure 105/62 105/63 113/65 Pulse Oximetry Oxygen Delivery Oxygen Flow Rate 06/15/24 17:00 06/15/24 17:15 06/15/24 17:30 Temperature Pulse Rate 81 79 77 Respiratory Rate Blood Pressure 98/58 L 101/57 L 89/56 L Pulse Oximetry Oxygen Delivery Oxygen Flow Rate 06/15/24 17:45 06/15/24 18:00 06/15/24 18:15 Temperature Pulse Rate 79 82 81 Respiratory Rate Blood Pressure 113/65 106/30 L 117/62 Pulse Oximetry Oxygen Delivery Oxygen Flow Rate 06/15/24 18:30 06/15/24 18:45 06/15/24 19:00 Temperature Pulse Rate 82 81 82 Respiratory Rate Blood Pressure 127/60 128/67 117/67 Pulse Oximetry Oxygen Delivery Oxygen Flow Rate 06/15/24 19:15 06/15/24 19:30 06/15/24 19:44 Temperature Pulse Rate 85 75 81 Respiratory Rate Blood Pressure 114/63 102/59 L 118/63 Pulse Oximetry Oxygen Delivery Oxygen Flow Rate 06/15/24 20:05 06/15/24 21:33 06/16/24 06:00 Temperature 97.7 F 97.9 F 97.4 F L Pulse Rate 82 79 84 Respiratory Rate 16 22 H 22 H Blood Pressure 111/62 105/61 114/53 L Pulse Oximetry 100 91 100 Oxygen Delivery Oxygen Flow Rate 06/16/24 08:00 06/16/24 08:40 Temperature Pulse Rate 80 Respiratory Rate Blood Pressure 107/66 Pulse Oximetry 97 97 Oxygen Delivery Nasal Cannula Oxygen Flow Rate 3 Intake/Output Intake/Output: Intake & Output 06/13/24 06/14/24 06/15/24 06/16/24 23:59 23:59 23:59 23:59 Intake Total 50 1300 1280 480 Output Total 2000 0 1700 Balance -1950 1300 -420 480 Meds/Results Medications: Active Medications Generic Name Dose Route Start Last Admin Trade Name Freq PRN Reason Stop Dose Admin Acetaminophen 650 mg 06/13/24 16:56 06/14/24 09:21 Acetaminophen 325 Mg Tablet PO 650 mg Q4H PRN Administration Mild Pain (1-3) or Fever Atorvastatin Calcium 40 mg 06/14/24 10:00 06/16/24 08:37 Atorvastatin 40 Mg Tablet PO 40 mg DAILY ARLYN Administration Calcium Acetate 667 mg 06/14/24 12:00 06/16/24 12:07 Calcium Acetate 667 Mg Tablet PO 667 mg TIDWM ARLYN Administration Dicyclomine HCl 10 mg 06/14/24 17:00 06/16/24 08:37 Dicyclomine Hcl 10 Mg Capsule PO 10 mg BID ARLYN Administration Ceftriaxone Sodium 1 gm in 50 mls @ 100 mls/hr 06/14/24 12:00 06/16/24 12:07 Rocephin 1 Gm/Ns 50 Ml IVPB 100 mls/hr Q24H ARLYN Administration Azithromycin 500 mg in 250 mls @ 250 mls/hr 06/14/24 12:00 06/15/24 13:45 Zithromax IVPB Infused Q24H ARLYN Infusion Albumin Human 50 mls @ 999 mls/hr 06/13/24 17:48 06/15/24 17:15 Albutein IVPB 07/13/24 17:47 999 mls/hr Q10M PRN Administration HYPOTENSION Levothyroxine Sodium 112 mcg 06/14/24 10:00 06/16/24 06:54 Levothyroxine Sodium 112 Mcg Tablet BY MOUTH 112 mcg DAILY@0630 ARLYN Administration Mirtazapine 30 mg 06/14/24 21:00 06/15/24 20:32 Mirtazapine 30 Mg Tablet PO 30 mg QHS ARLYN Administration Oseltamivir Phosphate 30 mg 06/13/24 23:50 06/15/24 08:48 Oseltamivir Phosphate 30 Mg Capsule PO 06/18/24 23:49 30 mg Q48HR ARLYN Administration Sertraline HCl 50 mg 06/14/24 21:00 06/15/24 20:32 Sertraline Hcl 50 Mg Tablet PO 50 mg HS ARLYN Administration Sitagliptin Phosphate 100 mg 06/14/24 10:10 06/15/24 08:47 Sitagliptin Phosphate 100 Mg Tablet PO 07/15/24 10:09 Not Given DAILY ARLYN Vitamin B Complex/Folic Acid 1 cap 06/14/24 10:00 06/16/24 08:38 Vitamin B Cmplx/Vit C/Folic Ac 1 Capsule PO 1 cap DAILY ARLYN Administration Vitamin D 2,000 units 06/14/24 10:00 06/16/24 08:37 Cholecalciferol 1,000 Units Tablet PO 2,000 units DAILY ARLYN Administration Vitamin E 400 unit 06/15/24 09:00 06/16/24 08:37 Vitamin E 400 Unit Capsule PO 400 unit DAILY ARLYN Administration Radiology Results: ITS Impressions Chest X-Ray 06/13/24 16:09 IMPRESSION: 1. Diffuse bilateral interstitial and airspace opacities most likely mild to moderate pulmonary edema related to congestive heart failure with differential including pneumonia. 2. Cardiomegaly with enlargement of the central pulmonary arteries consistent with pulmonary arterial hypertension. Chest CTA 06/13/24 16:24 IMPRESSION: 1. No pulmonary embolism. 2. Combination of mild pulmonary edema and multifocal pneumonia. 3. Cardiomegaly and enlargement of the central pulmonary arteries consistent with pulmonary arterial hypertension. 4. Unchanged mediastinal and left supraclavicular lymphadenopathy which is likely reactive. Labs Labs: Laboratory Results - last 24 hr 06/15/24 06/16/24 06/16/24 20:43 07:42 11:57 POC Capillary Glucose 73 78 196 H
[2024-06-16] MEDS: AZITHROMYCIN 500 MG/NS 250 ML 500 MG/250 ML BAG 250 MG IVPB (12:47)
--- NOTE | 2024-06-16 13:07 | P.PNNP_ITS ---
Progress Note: A&P Assessment and Plan (1) End stage renal disease: Code(s): N18.6 - End stage renal disease Status: Chronic Assessment and Plan: * HD yesterday * continue T/T/S dialysis schedule while hospitalized * follow electrolytes, volume status, and clearance (2) Acute on chronic respiratory failure with hypoxemia: Code(s): J96.21 - Acute and chronic respiratory failure with hypoxia Status: Acute Assessment and Plan: * as noted on presentation * normally on 3L supplemental oxygen at baseline * however, requiring 5L on admission to maintain oxygen saturations * however, weaned back down to 3L * multifactorial etiology: * chronic respiratory failure * influenza infection * COVID * pneumonia * continue supportive therapy as outlined (see #3, #4, and #5) (3) Multifocal pneumonia: Code(s): J18.9 - Pneumonia, unspecified organism Status: Acute Assessment and Plan: * as noted by admission chest CT * follow culture data * on antibiotic therapy (4) COVID-19: Code(s): U07.1 - COVID-19 Status: Acute Assessment and Plan: * positive viral testing in ER * refusing steroids or remdesivir * continue supportive therapy (5) Influenza A: Code(s): J10.1 - Influenza due to other identified influenza virus with other respiratory manifestations Status: Acute Assessment and Plan: * positive viral testing in ER * on Tamiflu * continue supportive therapy (6) Anemia: Code(s): D64.9 - Anemia, unspecified Status: Chronic Assessment and Plan: * due to ESRD and likely worsened by acute infection * Epogen with HD * follow H/H (7) Hypertension: Code(s): I10 - Essential (primary) hypertension Status: Chronic Assessment and Plan: * reasonable control * follow trend of hemodynamics (8) Type 2 diabetes mellitus with diabetic polyneuropathy: Qualifiers: Diabetes mellitus skilled nursing insulin use: without skilled nursing use Q ualified Code(s): E11.42 - Type 2 diabetes mellitus with diabetic polyneuropathy Code(s): E11.42 - Type 2 diabetes mellitus with diabetic polyneuropathy Status: Chronic Assessment and Plan: * follow accu-cheks * glycemic control per hospitalist Will continue to follow. L Subjective Date/time seen: 06/16/24 13:07 Interval history: Follow-up for end stage renal disease on hemodialysis. Tolerated dialysis treatment yesterday without any issues or problems; resting in bed at the time of my visit in no apparent distress; no events overnight or earlier this morning; daughter at bedside and we discussed the situation. Exam 2 Narrative: General: elderly female in NAD Heart: normal S1 and S2; no rub Lungs: coarse breath sounds; diminished at bases Abdomen: soft, nontender, nondistended, positive bowel sounds Extremities: trace - 1+ bilateral edema (chronic) in LEs Skin: warm and intact Objective Data Vital Signs Vital Signs: Vital Signs Temp Pulse Resp BP Pulse Ox O2 Del Method O2 Flow Rate 06/16/24 13:00 97.3 F L 96 22 H 135/81 100 06/16/24 08:40 80 107/66 97 06/16/24 08:00 97 Nasal Cannula 3 06/16/24 06:00 97.4 F L 84 22 H 114/53 L 100 06/15/24 21:33 97.9 F 79 22 H 105/61 91 06/15/24 20:05 97.7 F 82 16 111/62 100 06/15/24 19:44 81 118/63 06/15/24 19:30 75 102/59 L 06/15/24 19:15 85 114/63 06/15/24 19:00 82 117/67 06/15/24 18:45 81 128/67 06/15/24 18:30 82 127/60 06/15/24 18:15 81 117/62 06/15/24 18:00 82 106/30 L Intake/Output Intake/Output: Intake & Output 06/13/24 06/14/24 06/15/24 06/16/24 23:59 23:59 23:59 23:59 Intake Total 50 1300 1280 1570 Output Total 2000 0 1700 Balance -1950 1300 -420 1570 Meds/Results Medications: Active Medications Generic Name Dose Route Start Last Admin Trade Name Freq PRN Reason Stop Dose Admin Acetaminophen 650 mg 06/13/24 16:56 06/14/24 09:21 Acetaminophen 325 Mg Tablet PO 650 mg Q4H PRN Administration Mild Pain (1-3) or Fever Atorvastatin Calcium 40 mg 06/14/24 10:00 06/16/24 08:37 Atorvastatin 40 Mg Tablet PO 40 mg DAILY ARLYN Administration Calcium Acetate 667 mg 06/14/24 12:00 06/16/24 17:07 Calcium Acetate 667 Mg Tablet PO 667 mg TIDWM ARLYN Administration Dicyclomine HCl 10 mg 06/14/24 17:00 06/16/24 17:07 Dicyclomine Hcl 10 Mg Capsule PO 10 mg BID ARLYN Administration Ceftriaxone Sodium 1 gm in 50 mls @ 100 mls/hr 06/14/24 12:00 06/16/24 12:07 Rocephin 1 Gm/Ns 50 Ml IVPB 100 mls/hr Q24H ARLYN Administration Azithromycin 500 mg in 250 mls @ 250 mls/hr 06/14/24 12:00 06/16/24 12:47 Zithromax IVPB 250 mls/hr Q24H ARLYN Administration Albumin Human 50 mls @ 999 mls/hr 06/13/24 17:48 06/15/24 17:15 Albutein IVPB 07/13/24 17:47 999 mls/hr Q10M PRN Administration HYPOTENSION Levothyroxine Sodium 112 mcg 06/14/24 10:00 06/16/24 06:54 Levothyroxine Sodium 112 Mcg Tablet BY MOUTH 112 mcg DAILY@0630 ARLYN Administration Mirtazapine 30 mg 06/14/24 21:00 06/15/24 20:32 Mirtazapine 30 Mg Tablet PO 30 mg QHS ARLYN Administration Oseltamivir Phosphate 30 mg 06/13/24 23:50 06/15/24 08:48 Oseltamivir Phosphate 30 Mg Capsule PO 06/18/24 23:49 30 mg Q48HR ARLYN Administration Sertraline HCl 50 mg 06/14/24 21:00 06/15/24 20:32 Sertraline Hcl 50 Mg Tablet PO 50 mg HS ARLYN Administration Sitagliptin Phosphate 100 mg 06/14/24 10:10 06/15/24 08:47 Sitagliptin Phosphate 100 Mg Tablet PO 07/15/24 10:09 Not Given DAILY ARLYN Vitamin B Complex/Folic Acid 1 cap 06/14/24 10:00 06/16/24 08:38 Vitamin B Cmplx/Vit C/Folic Ac 1 Capsule PO 1 cap DAILY ARLYN Administration Vitamin D 2,000 units 06/14/24 10:00 06/16/24 08:37 Cholecalciferol 1,000 Units Tablet PO 2,000 units DAILY ARLYN Administration Vitamin E 400 unit 06/15/24 09:00 06/16/24 08:37 Vitamin E 400 Unit Capsule PO 400 unit DAILY ARLYN Administration Radiology Results: ITS Impressions Chest X-Ray 06/13/24 16:09 IMPRESSION: 1. Diffuse bilateral interstitial and airspace opacities most likely mild to moderate pulmonary edema related to congestive heart failure with differential including pneumonia. 2. Cardiomegaly with enlargement of the central pulmonary arteries consistent with pulmonary arterial hypertension. Chest CTA 06/13/24 16:24 IMPRESSION: 1. No pulmonary embolism. 2. Combination of mild pulmonary edema and multifocal pneumonia. 3. Cardiomegaly and enlargement of the central pulmonary arteries consistent with pulmonary arterial hypertension. 4. Unchanged mediastinal and left supraclavicular lymphadenopathy which is likely reactive. Labs Labs: Laboratory Tests 06/15/24 05:47 06/15/24 05:47
[2024-06-16 14:00] VITALS: BP 135/81; PULSE 96; RESP 22; TEMP 36.3; O2SAT 100
[2024-06-16 16:50] LABS: Glucose Point of Care 144 mg/dl (65-105)
[2024-06-16] MEDS: MIRTAZAPINE 30 MG TABLET PO (20:24)
[2024-06-16] MEDS: SERTRALINE HCL 50 MG TABLET PO (20:24)
[2024-06-16 21:38] VITALS: BP 120/61; PULSE 85; RESP 20; TEMP 36.4; O2SAT 100
[2024-06-16 21:58] LABS: Glucose Point of Care 145 mg/dl (65-105)
[2024-06-17 06:00] VITALS: BP 110/48; PULSE 84; RESP 20; TEMP 36.7; O2SAT 99
[2024-06-17] MEDS: ACETAMINOPHEN 325 MG TABLET 650 MG PO (06:30)
[2024-06-17] MEDS: LEVOTHYROXINE SODIUM 112 MCG TABLET BY MOUTH (06:30)
[2024-06-17 07:54] LABS: Glucose Point of Care 104 mg/dl (65-105)
[2024-06-17 08:18] VITALS: BP 122/63; PULSE 79; O2SAT 100
[2024-06-17] MEDS: ATORVASTATIN 40 MG TABLET PO (08:18)
[2024-06-17] MEDS: VITAMIN E 400 UNIT CAPSULE PO (08:18)
[2024-06-17] MEDS: CHOLECALCIFEROL 1,000 UNITS TABLET 2000 UNITS PO (08:18)
[2024-06-17] MEDS: CALCIUM ACETATE 667 MG TABLET PO ×3 (08:18→16:41)
[2024-06-17] MEDS: OSELTAMIVIR PHOSPHATE 30 MG CAPSULE PO (08:18)
[2024-06-17] MEDS: DICYCLOMINE HCL 10 MG CAPSULE PO ×2 (08:18→16:41)
[2024-06-17] MEDS: VITAMIN B CMPLX/VIT C/FOLIC AC 1 CAPSULE 1 CAP PO (08:18)
--- NOTE | 2024-06-17 11:35 | P.PNNP_ITS ---
Progress Note: A&P Assessment and Plan (1) End stage renal disease: Code(s): N18.6 - End stage renal disease Status: Chronic Assessment and Plan: * HD tomorrow * continue T/T/S dialysis schedule while hospitalized * follow electrolytes, volume status, and clearance (2) Acute on chronic respiratory failure with hypoxemia: Code(s): J96.21 - Acute and chronic respiratory failure with hypoxia Status: Acute Assessment and Plan: * as noted on presentation * normally on 3L supplemental oxygen at baseline * however, requiring 5L on admission to maintain oxygen saturations * however, weaned back down to 3L * multifactorial etiology: * chronic respiratory failure * influenza infection * COVID * pneumonia * continue supportive therapy as outlined (see #3, #4, and #5) (3) Multifocal pneumonia: Code(s): J18.9 - Pneumonia, unspecified organism Status: Acute Assessment and Plan: * as noted by admission chest CT * follow culture data * on antibiotic therapy (4) COVID-19: Code(s): U07.1 - COVID-19 Status: Acute Assessment and Plan: * positive viral testing in ER * refusing steroids or remdesivir * continue supportive therapy (5) Influenza A: Code(s): J10.1 - Influenza due to other identified influenza virus with other respiratory manifestations Status: Acute Assessment and Plan: * positive viral testing in ER * on Tamiflu * continue supportive therapy (6) Anemia: Code(s): D64.9 - Anemia, unspecified Status: Chronic Assessment and Plan: * due to ESRD and likely worsened by acute infection * Epogen with HD * follow H/H (7) Hypertension: Code(s): I10 - Essential (primary) hypertension Status: Chronic Assessment and Plan: * reasonable control * follow trend of hemodynamics (8) Type 2 diabetes mellitus with diabetic polyneuropathy: Qualifiers: Diabetes mellitus nursing home insulin use: without exterminator termite use Q ualified Code(s): E11.42 - Type 2 diabetes mellitus with diabetic polyneuropathy Code(s): E11.42 - Type 2 diabetes mellitus with diabetic polyneuropathy Status: Chronic Assessment and Plan: * follow accu-cheks * glycemic control per hospitalist Will continue to follow. L Subjective Date/time seen: 06/17/24 11:35 Interval history: Follow-up for end stage renal disease on hemodialysis. Breathing/respiratory status remains relatively stable at the time of my visit; no other issues/events overnight or earlier this morning; no apparent distress voiced when I came to see her. Exam 2 Narrative: General: elderly female in NAD Heart: normal S1 and S2; no rub Lungs: coarse breath sounds; diminished at bases Abdomen: soft, nontender, nondistended, positive bowel sounds Extremities: trace - 1+ bilateral edema (chronic) in LEs Skin: warm and intact Objective Data Vital Signs Vital Signs: Vital Signs Temp Pulse Resp BP Pulse Ox O2 Del Method O2 Flow Rate 06/17/24 11:20 97.6 F 74 22 H 124/66 100 06/17/24 08:18 79 122/63 100 06/17/24 08:18 100 Nasal Cannula 3 06/17/24 06:00 98.0 F 84 20 110/48 L 99 06/16/24 21:38 97.6 F 85 20 120/61 100 Intake/Output Intake/Output: Intake & Output 06/14/24 06/15/24 06/16/24 06/17/24 23:59 23:59 23:59 23:59 Intake Total 1300 1280 2110 400 Output Total 0 1700 Balance 1300 -420 2110 400 Meds/Results Medications: Active Medications Generic Name Dose Route Start Last Admin Trade Name Jayyq PRN Reason Stop Dose Admin Acetaminophen 650 mg 06/13/24 16:56 06/17/24 06:30 Acetaminophen 325 Mg Tablet PO 650 mg Q4H PRN Administration Mild Pain (1-3) or Fever Amoxicillin/Clavulanate Potassium 1 tablet 06/18/24 09:00 Amoxicillin/Clavulanate K 500-125 Mg Tab PO 06/19/24 09:01 DAILY ARLYN Atorvastatin Calcium 40 mg 06/14/24 10:00 06/17/24 08:18 Atorvastatin 40 Mg Tablet PO 40 mg DAILY ARLYN Administration Calcium Acetate 667 mg 06/14/24 12:00 06/17/24 16:41 Calcium Acetate 667 Mg Tablet PO 667 mg TIDWM ARLYN Administration Dicyclomine HCl 10 mg 06/14/24 17:00 06/17/24 16:41 Dicyclomine Hcl 10 Mg Capsule PO 10 mg BID ARLYN Administration Albumin Human 50 mls @ 999 mls/hr 06/13/24 17:48 06/15/24 17:15 Albutein IVPB 07/13/24 17:47 999 mls/hr Q10M PRN Administration HYPOTENSION Levothyroxine Sodium 112 mcg 06/14/24 10:00 06/17/24 06:30 Levothyroxine Sodium 112 Mcg Tablet BY MOUTH 112 mcg DAILY@0630 ARLYN Administration Mirtazapine 30 mg 06/14/24 21:00 06/16/24 20:24 Mirtazapine 30 Mg Tablet PO 30 mg QHS ARLYN Administration Oseltamivir Phosphate 30 mg 06/13/24 23:50 06/17/24 08:18 Oseltamivir Phosphate 30 Mg Capsule PO 06/18/24 23:49 30 mg Q48HR ARLYN Administration Sertraline HCl 50 mg 06/14/24 21:00 06/16/24 20:24 Sertraline Hcl 50 Mg Tablet PO 50 mg HS ARLYN Administration Sitagliptin Phosphate 100 mg 06/14/24 10:10 06/15/24 08:47 Sitagliptin Phosphate 100 Mg Tablet PO 07/15/24 10:09 Not Given DAILY ARLYN Vitamin B Complex/Folic Acid 1 cap 06/14/24 10:00 06/17/24 08:18 Vitamin B Cmplx/Vit C/Folic Ac 1 Capsule PO 1 cap DAILY ARLYN Administration Vitamin D 2,000 units 06/14/24 10:00 06/17/24 08:18 Cholecalciferol 1,000 Units Tablet PO 2,000 units DAILY ARLYN Administration Vitamin E 400 unit 06/15/24 09:00 06/17/24 08:18 Vitamin E 400 Unit Capsule PO 400 unit DAILY ARLYN Administration Radiology Results: ITS Impressions Chest X-Ray 06/13/24 16:09 IMPRESSION: 1. Diffuse bilateral interstitial and airspace opacities most likely mild to moderate pulmonary edema related to congestive heart failure with differential including pneumonia. 2. Cardiomegaly with enlargement of the central pulmonary arteries consistent with pulmonary arterial hypertension. Chest CTA 06/13/24 16:24 IMPRESSION: 1. No pulmonary embolism. 2. Combination of mild pulmonary edema and multifocal pneumonia. 3. Cardiomegaly and enlargement of the central pulmonary arteries consistent with pulmonary arterial hypertension. 4. Unchanged mediastinal and left supraclavicular lymphadenopathy which is likely reactive. Labs Labs: Laboratory Tests 06/15/24 05:47 06/15/24 05:47
[2024-06-17 11:39] LABS: Glucose Point of Care 93 mg/dl (65-105)
--- NOTE | 2024-06-17 12:06 | PM.IMPN ---
Progress Note: A&P Assessment and Plan (1) Influenza A: Code(s): J10.1 - Influenza due to other identified influenza virus with other respiratory manifestations Status: Acute (2) COVID-19: Code(s): U07.1 - COVID-19 Status: Acute (3) Acute on chronic respiratory failure with hypoxemia: Code(s): J96.21 - Acute and chronic respiratory failure with hypoxia Status: Acute (4) Multifocal pneumonia: Code(s): J18.9 - Pneumonia, unspecified organism Status: Acute Plan Patient presented with low oxygen level. Patient was diagnosed with influenza a on Monday via home test. Several other family members had influenza and COVID at home. Chronic oxygen at 3 L via nasal cannula. Also associated shortness of breath. Oxygen requirement has increased to 5 L. Attempted to go to dialysis however oxygen was low again and hence was sent to ED for evaluation. Associated cough no fever. In the ED vitals were stable afebrile oxygen saturation is adequate on 3 L oxygen via nasal cannula. Laboratory studies shows WBC of 3 hemoglobin of 10.9 platelet of 57. Creatinine was 6.7 consistent with end-stage renal disease. Electrolytes were unremarkable. D-dimer was elevated 1.48. BNP was more than 30,000 troponin was elevated at 0.402. Influenza a and COVID positive. Started on Tamiflu for influenza which will be continued as ordered Patient refused to get steroid or remdesivir for COVID infection. Chest x-ray revealed multifocal pneumonia.. CTA showed no evidence of PE but demonstrated multifocal pneumonia. Patient has been started on ceftriaxone and azithromycin. MRSA PCR negative. Blood culture negative to date. Elevated troponin likely demand ischemia due to hypoxia. Flat trend 0.402-0.33 1-0.339 Thrombocytopenia likely due to viral infection. Continue to monitor Acute hypoxic on chronic respiratory failure on oxygen 3 L at baseline ESRD on dialysis Monday nephrology has been consulted for inpatient hemodialysis Hypothyroidism Type 2 diabetes Hypertension Hyperlipidemia Anxiety depression Osteoarthritis Gout Acute on chronic thrombocytopenia Leukopenia Anemia DVT prophylaxis SCDs due to thrombocytopenia Code status full code Subjective Date/time seen: 06/17/24 12:06 Interval history: No new complaints. Mild shortness of breath with exertion. Cough has improved. Feels better. Review of Systems Review of Systems: All systems reviewed & are unremarkable except as noted in HPI and below (HPI) Exam Narrative: GENERAL: Well-appearing, well-nourished, and in no acute distress. HEAD: Normocephalic, atraumatic. EYES: PERRLA and EOMI. ENT: Nares clear, no rhinorrhea or epistaxis. Mucous membranes moist. NECK: Supple. CHEST: Coarse breath sounds bilaterally No respiratory distress. No wheezes HEART: Regular rate and rhythm. No murmur heard. Normal peripheral pulses. ABDOMEN: Soft, nontender, nondistended, normal active bowel sounds. EXTREMITIES: Normal range of motion. No edema. SKIN: Warm, dry, no rash. NEURO: No focal deficits. Alert and oriented x3. PSYCH: Normal mood and affect. Objective Data Vital Signs Vital Signs: Vital Signs - 24 hr 06/16/24 14:00 06/16/24 21:38 06/17/24 06:00 Temperature 97.3 F L 97.6 F 98.0 F Pulse Rate 96 85 84 Respiratory Rate 22 H 20 20 Blood Pressure 135/81 120/61 110/48 L Pulse Oximetry 100 100 99 Oxygen Delivery Oxygen Flow Rate 06/17/24 08:18 06/17/24 08:18 Temperature Pulse Rate 79 Respiratory Rate Blood Pressure 122/63 Pulse Oximetry 100 100 Oxygen Delivery Nasal Cannula Oxygen Flow Rate 3 Intake/Output Intake/Output: Intake & Output 06/14/24 06/15/24 06/16/24 06/17/24 23:59 23:59 23:59 23:59 Intake Total 1300 1280 2110 0 Output Total 0 1700 Balance 1300 -420 2110 0 Meds/Results Medications: Active Medications Generic Name Dose Route Start Last Admin Trade Name Jayyq PRN Reason Stop Dose Admin Acetaminophen 650 mg 06/13/24 16:56 06/17/24 06:30 Acetaminophen 325 Mg Tablet PO 650 mg Q4H PRN Administration Mild Pain (1-3) or Fever Atorvastatin Calcium 40 mg 06/14/24 10:00 06/17/24 08:18 Atorvastatin 40 Mg Tablet PO 40 mg DAILY ARLYN Administration Calcium Acetate 667 mg 06/14/24 12:00 06/17/24 11:54 Calcium Acetate 667 Mg Tablet PO 667 mg TIDWM ARLYN Administration Dicyclomine HCl 10 mg 06/14/24 17:00 06/17/24 08:18 Dicyclomine Hcl 10 Mg Capsule PO 10 mg BID ARLYN Administration Ceftriaxone Sodium 1 gm in 50 mls @ 100 mls/hr 06/14/24 12:00 06/17/24 11:54 Rocephin 1 Gm/Ns 50 Ml IVPB 100 mls/hr Q24H ARLYN Administration Azithromycin 500 mg in 250 mls @ 250 mls/hr 06/14/24 12:00 06/16/24 13:47 Zithromax IVPB Infused Q24H ARLYN Infusion Albumin Human 50 mls @ 999 mls/hr 06/13/24 17:48 06/15/24 17:15 Albutein IVPB 07/13/24 17:47 999 mls/hr Q10M PRN Administration HYPOTENSION Levothyroxine Sodium 112 mcg 06/14/24 10:00 06/17/24 06:30 Levothyroxine Sodium 112 Mcg Tablet BY MOUTH 112 mcg DAILY@0630 ARLYN Administration Mirtazapine 30 mg 06/14/24 21:00 06/16/24 20:24 Mirtazapine 30 Mg Tablet PO 30 mg QHS ARLYN Administration Oseltamivir Phosphate 30 mg 06/13/24 23:50 06/17/24 08:18 Oseltamivir Phosphate 30 Mg Capsule PO 06/18/24 23:49 30 mg Q48HR ARLYN Administration Sertraline HCl 50 mg 06/14/24 21:00 06/16/24 20:24 Sertraline Hcl 50 Mg Tablet PO 50 mg HS ARLYN Administration Sitagliptin Phosphate 100 mg 06/14/24 10:10 06/15/24 08:47 Sitagliptin Phosphate 100 Mg Tablet PO 07/15/24 10:09 Not Given DAILY ARLYN Vitamin B Complex/Folic Acid 1 cap 06/14/24 10:00 06/17/24 08:18 Vitamin B Cmplx/Vit C/Folic Ac 1 Capsule PO 1 cap DAILY ARLYN Administration Vitamin D 2,000 units 06/14/24 10:00 06/17/24 08:18 Cholecalciferol 1,000 Units Tablet PO 2,000 units DAILY ARLYN Administration Vitamin E 400 unit 06/15/24 09:00 06/17/24 08:18 Vitamin E 400 Unit Capsule PO 400 unit DAILY ARLYN Administration Radiology Results: ITS Impressions Chest X-Ray 06/13/24 16:09 IMPRESSION: 1. Diffuse bilateral interstitial and airspace opacities most likely mild to moderate pulmonary edema related to congestive heart failure with differential including pneumonia. 2. Cardiomegaly with enlargement of the central pulmonary arteries consistent with pulmonary arterial hypertension. Chest CTA 06/13/24 16:24 IMPRESSION: 1. No pulmonary embolism. 2. Combination of mild pulmonary edema and multifocal pneumonia. 3. Cardiomegaly and enlargement of the central pulmonary arteries consistent with pulmonary arterial hypertension. 4. Unchanged mediastinal and left supraclavicular lymphadenopathy which is likely reactive. Labs Labs: Laboratory Results - last 24 hr 06/16/24 06/16/24 06/16/24 11:57 16:45 20:22 POC Capillary Glucose 196 H 144 H 145 H 06/17/24 06/17/24 07:32 11:36 POC Capillary Glucose 104 93
[2024-06-17] MEDS: AZITHROMYCIN 500 MG/NS 250 ML 500 MG/250 ML BAG 250 MG IVPB (12:50)
[2024-06-17 14:00] VITALS: BP 124/66; PULSE 74; RESP 22; TEMP 36.4; O2SAT 100
[2024-06-17 16:55] LABS: Glucose Point of Care 95 mg/dl (65-105)
[2024-06-17 20:05] VITALS: BP 123/65; PULSE 86; RESP 20; TEMP 36.8; O2SAT 100
[2024-06-17] MEDS: SERTRALINE HCL 50 MG TABLET PO (20:30)
[2024-06-17] MEDS: MIRTAZAPINE 30 MG TABLET PO (20:30)
[2024-06-17 21:35] LABS: Glucose Point of Care 129 mg/dl (65-105)
[2024-06-18] VITALS (23 sets, daily range): BP systolic 116–142; BP diastolic 58–84; PULSE 81–91; RESP 16–24; TEMP 36.3–38; O2SAT 91–100
[2024-06-18] MEDS: LEVOTHYROXINE SODIUM 112 MCG TABLET BY MOUTH (06:24)
[2024-06-18 08:03] LABS: Glucose Point of Care 79 mg/dl (65-105)
--- NOTE | 2024-06-18 08:30 | PC.NURSE ---
To dialysis via bed.
[2024-06-18 08:42] LABS: Albumin Level 3.3 g/dL (3.5-5.1); Anion Gap 11 mmol/L (4-12); Blood Urea Nitrogen 29 mg/dL (7-17); Calcium 8.7 mg/dL (8.4-10.2); Carbon Dioxide 24 mmol/L (22-30); Chloride 101 mmol/L (98-107); Estimated Glomerular Filt Rate 7; Glucose 74 mg/dL (65-110); Phosphorus 4.6 mg/dL (2.5-4.5); Potassium 4.1 mmol/L (3.4-5.0); Sodium 136 mmol/L (137-145)
[2024-06-18] MEDS: HEPARIN SODIUM 1,000 UNITS/ML VIAL 1250 UNITS IV PUSH (08:56)
[2024-06-18] MEDS: HEPARIN SODIUM 1,000 UNITS/ML VIAL 1000 UNITS IV PUSH ×2 (08:59→10:00)
--- NOTE | 2024-06-18 10:39 | PCOTNOTE ---
Attempted OT evaluation. Patient off floor for Dialysis.
--- NOTE | 2024-06-18 11:20 | P.PNNP_ITS ---
Progress Note: A&P Assessment and Plan (1) End stage renal disease: Code(s): N18.6 - End stage renal disease Status: Chronic Assessment and Plan: * HD today * continue T/T/S dialysis schedule while hospitalized * follow electrolytes, volume status, and clearance (2) Acute on chronic respiratory failure with hypoxemia: Code(s): J96.21 - Acute and chronic respiratory failure with hypoxia Status: Acute Assessment and Plan: * as noted on presentation * normally on 3L supplemental oxygen at baseline * however, requiring 5L on admission to maintain oxygen saturations * however, weaned back down to 3L * multifactorial etiology: * chronic respiratory failure * influenza infection * COVID * pneumonia * continue supportive therapy as outlined (see #3, #4, and #5) (3) Multifocal pneumonia: Code(s): J18.9 - Pneumonia, unspecified organism Status: Acute Assessment and Plan: * as noted by admission chest CT * follow culture data * on antibiotic therapy (4) COVID-19: Code(s): U07.1 - COVID-19 Status: Acute Assessment and Plan: * positive viral testing in ER * refusing steroids or remdesivir * continue supportive therapy (5) Influenza A: Code(s): J10.1 - Influenza due to other identified influenza virus with other respiratory manifestations Status: Acute Assessment and Plan: * positive viral testing in ER * on Tamiflu * continue supportive therapy (6) Anemia: Code(s): D64.9 - Anemia, unspecified Status: Chronic Assessment and Plan: * due to ESRD and likely worsened by acute infection * Epogen with HD * follow H/H (7) Hypertension: Code(s): I10 - Essential (primary) hypertension Status: Chronic Assessment and Plan: * reasonable control * follow trend of hemodynamics (8) Type 2 diabetes mellitus with diabetic polyneuropathy: Qualifiers: Diabetes mellitus terminal worker insulin use: without residential use Q ualified Code(s): E11.42 - Type 2 diabetes mellitus with diabetic polyneuropathy Code(s): E11.42 - Type 2 diabetes mellitus with diabetic polyneuropathy Status: Chronic Assessment and Plan: * follow accu-cheks * glycemic control per hospitalist Not opposed to discharge from renal perspective if otherwise medically stable. Will continue to follow. L Subjective Date/time seen: 06/18/24 11:20 Interval history: Follow-up for end stage renal disease on hemodialysis. Tolerating dialysis treatment at the time of my visit (seen on HD at 11:10AM); breathing/respiratory status seems stable if not better currently; no other acute issues/events overnight or earlier this morning; no apparent distress noted. Exam 2 Narrative: General: elderly female in NAD Heart: normal S1 and S2; no rub Lungs: coarse breath sounds; diminished at bases Abdomen: soft, nontender, nondistended, positive bowel sounds Extremities: trace - 1+ bilateral edema (chronic) in LEs Skin: no rash or nodules Objective Data Vital Signs Vital Signs: Vital Signs Temp Pulse Resp BP Pulse Ox O2 Del Method O2 Flow Rate 06/18/24 11:15 86 131/65 06/18/24 11:00 84 119/66 06/18/24 10:45 85 127/67 06/18/24 10:30 82 125/62 06/18/24 10:15 84 132/66 06/18/24 10:00 84 124/68 06/18/24 09:45 81 126/84 06/18/24 09:30 83 142/72 H 06/18/24 09:15 84 142/70 H 06/18/24 08:59 81 116/65 06/18/24 08:59 3 06/18/24 08:40 98.1 F 84 18 123/79 98 06/18/24 08:25 100 Nasal Cannula 3 06/18/24 04:30 97.8 F 84 20 130/67 100 06/17/24 20:05 98.3 F 86 20 123/65 100 06/17/24 14:00 97.6 F 74 22 H 124/66 100 Intake/Output Intake/Output: Intake & Output 06/15/24 06/16/24 06/17/24 06/18/24 23:59 23:59 23:59 23:59 Intake Total 1280 2110 520 300 Output Total 1700 Balance -420 2110 520 300 Meds/Results Medications: Active Medications Generic Name Dose Route Start Last Admin Trade Name Freq PRN Reason Stop Dose Admin Acetaminophen 650 mg 06/13/24 16:56 06/17/24 06:30 Acetaminophen 325 Mg Tablet PO 650 mg Q4H PRN Administration Mild Pain (1-3) or Fever Amoxicillin/Clavulanate Potassium 1 tablet 06/18/24 09:00 Amoxicillin/Clavulanate K 500-125 Mg Tab PO 06/19/24 09:01 DAILY ARLYN Atorvastatin Calcium 40 mg 06/14/24 10:00 06/17/24 08:18 Atorvastatin 40 Mg Tablet PO 40 mg DAILY ARLYN Administration Calcium Acetate 667 mg 06/14/24 12:00 06/17/24 16:41 Calcium Acetate 667 Mg Tablet PO 667 mg TIDWM ARLYN Administration Dicyclomine HCl 10 mg 06/14/24 17:00 06/17/24 16:41 Dicyclomine Hcl 10 Mg Capsule PO 10 mg BID ARLYN Administration Epoetin Vini-epbx 10,000 units 06/18/24 19:10 06/18/24 11:55 Epoetin Vini-Epbx 10,000 Units/Ml Vial IV PUSH 06/18/24 19:11 10,000 units ONCE ONE Administration Albumin Human 50 mls @ 999 mls/hr 06/13/24 17:48 06/15/24 17:15 Albutein IVPB 07/13/24 17:47 999 mls/hr Q10M PRN Administration HYPOTENSION Levothyroxine Sodium 112 mcg 06/14/24 10:00 06/18/24 06:24 Levothyroxine Sodium 112 Mcg Tablet BY MOUTH 112 mcg DAILY@0630 ARLYN Administration Mirtazapine 30 mg 06/14/24 21:00 06/17/24 20:30 Mirtazapine 30 Mg Tablet PO 30 mg QHS ARLYN Administration Oseltamivir Phosphate 30 mg 06/13/24 23:50 06/17/24 08:18 Oseltamivir Phosphate 30 Mg Capsule PO 06/18/24 23:49 30 mg Q48HR ARLYN Administration Sertraline HCl 50 mg 06/14/24 21:00 06/17/24 20:30 Sertraline Hcl 50 Mg Tablet PO 50 mg HS ARLYN Administration Sitagliptin Phosphate 100 mg 06/14/24 10:10 06/15/24 08:47 Sitagliptin Phosphate 100 Mg Tablet PO 07/15/24 10:09 Not Given DAILY ARLYN Vitamin B Complex/Folic Acid 1 cap 06/14/24 10:00 06/17/24 08:18 Vitamin B Cmplx/Vit C/Folic Ac 1 Capsule PO 1 cap DAILY ARLYN Administration Vitamin D 2,000 units 06/14/24 10:00 06/17/24 08:18 Cholecalciferol 1,000 Units Tablet PO 2,000 units DAILY ARLYN Administration Vitamin E 400 unit 06/15/24 09:00 06/17/24 08:18 Vitamin E 400 Unit Capsule PO 400 unit DAILY ARLYN Administration Radiology Results: ITS Impressions Chest CTA 06/13/24 16:24 IMPRESSION: 1. No pulmonary embolism. 2. Combination of mild pulmonary edema and multifocal pneumonia. 3. Cardiomegaly and enlargement of the central pulmonary arteries consistent with pulmonary arterial hypertension. 4. Unchanged mediastinal and left supraclavicular lymphadenopathy which is likely reactive. Chest X-Ray 06/18/24 08:35 IMPRESSION: 1. Improved diffuse lung disease, likely a combination of pneumonia and mild pulmonary edema. 2. Cardiomegaly. Labs Labs: Laboratory Tests 06/15/24 05:47 06/18/24 07:39 Calcium 8.7 Phosphorus 4.6 H Albumin 3.3 L
[2024-06-18] MEDS: EPOETIN ALFA-EPBX 10,000 UNITS/ML VIAL 10000 UNITS IV PUSH (11:55)
--- NOTE | 2024-06-18 12:28 | PM.DS ---
DS: Admitting Diagnosis Discharge Date 06/18/2024 Admitting Diagnosis Shortness of breath DS: Discharge Diagnosis Discharge Diagnosis (1) Influenza A: Code(s): J10.1 - Influenza due to other identified influenza virus with other respiratory manifestations Status: Acute (2) COVID-19: Code(s): U07.1 - COVID-19 Status: Acute (3) Acute on chronic respiratory failure with hypoxemia: Code(s): J96.21 - Acute and chronic respiratory failure with hypoxia Status: Acute (4) Multifocal pneumonia: Code(s): J18.9 - Pneumonia, unspecified organism Status: Acute DS: Summary Hospital Course Hospital Course: Patient presented with low oxygen level. Patient was diagnosed with influenza a on Monday via home test. Several other family members had influenza and COVID at home. Chronic oxygen at 3 L via nasal cannula. Also associated shortness of breath. Oxygen requirement has increased to 5 L. Attempted to go to dialysis however oxygen was low again and hence was sent to ED for evaluation. Associated cough no fever. In the ED vitals were stable afebrile oxygen saturation is adequate on 3 L oxygen via nasal cannula. Laboratory studies shows WBC of 3 hemoglobin of 10.9 platelet of 57. Creatinine was 6.7 consistent with end-stage renal disease. Electrolytes were unremarkable. D-dimer was elevated 1.48. BNP was more than 30,000 troponin was elevated at 0.402. Influenza a and COVID positive. Started on Tamiflu for influenza which will be continued as ordered and completed treatment while hospitalized Patient refused to get steroid or remdesivir for COVID infection. Chest x-ray revealed multifocal pneumonia.. CTA showed no evidence of PE but demonstrated multifocal pneumonia. Patient has been started on ceftriaxone and azithromycin. MRSA PCR negative. Blood culture negative to date. Elevated troponin likely demand ischemia due to hypoxia. Flat trend 0.402-0.33 1-0.339 Thrombocytopenia likely due to viral infection. Continue to monitor Acute hypoxic on chronic respiratory failure on oxygen 3 L at baseline ESRD on dialysis Monday nephrology has been consulted for inpatient hemodialysis Hypothyroidism Type 2 diabetes Hypertension Hyperlipidemia Anxiety depression Osteoarthritis Gout Acute on chronic thrombocytopenia stable counts Leukopenia Anemia DVT prophylaxis SCDs due to thrombocytopenia Code status full code Time Spent with Patient Time attestation: Total time spent providing and/or coordinating discharge services: Exam Narrative: GENERAL: Well-appearing, well-nourished, and in no acute distress. HEAD: Normocephalic, atraumatic. EYES: PERRLA and EOMI. ENT: Nares clear, no rhinorrhea or epistaxis. Mucous membranes moist. NECK: Supple. CHEST: Coarse breath sounds bilaterally No respiratory distress. No wheezes HEART: Regular rate and rhythm. No murmur heard. Normal peripheral pulses. ABDOMEN: Soft, nontender, nondistended, normal active bowel sounds. EXTREMITIES: Normal range of motion. No edema. SKIN: Warm, dry, no rash. NEURO: No focal deficits. Alert and oriented x3. PSYCH: Normal mood and affect. DS: Data Data Completed and Pending Labs on day of discharge: Labs from last 24 hours 06/18/24 06/18/24 06/17/24 07:41 07:39 20:11 Sodium 136 L Potassium 4.1 Chloride 101 Carbon Dioxide 24 Anion Gap 11 BUN 29 H D Creatinine 6.05 H Estim Creat Clear Calc Not Reportable Estimated GFR 7 L Glucose 74 POC Capillary Glucose 79 129 H Calcium 8.7 Phosphorus 4.6 H Albumin 3.3 L 06/17/24 16:51 Sodium Potassium Chloride Carbon Dioxide Anion Gap BUN Creatinine Estim Creat Clear Calc Estimated GFR Glucose POC Capillary Glucose 95 Calcium Phosphorus Albumin Preliminary micro results at discharge 06/13/24 17:40 Blood Culture - Preliminary Blood 06/13/24 17:42 Blood Culture - Preliminary Blood Imaging Radiologist's impression: ITS Impressions Chest X-Ray 06/13/24 16:09 IMPRESSION: 1. Diffuse bilateral interstitial and airspace opacities most likely mild to moderate pulmonary edema related to congestive heart failure with differential including pneumonia. 2. Cardiomegaly with enlargement of the central pulmonary arteries consistent with pulmonary arterial hypertension. Chest CTA 06/13/24 16:24 IMPRESSION: 1. No pulmonary embolism. 2. Combination of mild pulmonary edema and multifocal pneumonia. 3. Cardiomegaly and enlargement of the central pulmonary arteries consistent with pulmonary arterial hypertension. 4. Unchanged mediastinal and left supraclavicular lymphadenopathy which is likely reactive. Chest X-Ray 06/18/24 08:35 IMPRESSION: 1. Improved diffuse lung disease, likely a combination of pneumonia and mild pulmonary edema. 2. Cardiomegaly. Discharge Plan Discharge Attending physician on discharge: Cullen Shoemaker Consulting providers: Tara Morley Discharging Clinician: Cullen Shoemaker Anticipated Discharge Date/Time: 06/18/24 12:30 Patient Disposition: Home Health Service Activity: as tolerated Diet: diabetic and renal Patient Instructions: Antibiotic Form Patient Language: Norwegian Stand Alone Forms: General Discharge Information Follow-up/Referrals: Shahid Powell MD [Primary Care Provider] - 1 Week Discharge Medications: New amoxicillin-pot clavulanate [Augmentin] 500-125 mg Tablet 1 tablet PO DAILY Qty: 1 0RF Continued mirtazapine 30 mg tablet 30 mg PO QHS Qty: 90 1RF cholecalciferol (vitamin D3) 50 mcg (2,000 unit) capsule 50 mcg PO DAILY vitamin E (dl, acetate) 180 mg (400 unit) capsule 180 mg PO DAILY atorvastatin 40 mg tablet 40 mg PO DAILY sertraline 50 mg tablet 50 mg PO HS Tradjenta 5 mg tablet 5 mg PO DAILY Triphrocaps 1 mg capsule 1 cap PO DAILY dicyclomine 10 mg capsule 10 mg PO BID Qty: 60 4RF levothyroxine 112 mcg tablet See Rx Instructions .ROUTE .COMPLEX Qty: 90 0RF Dose Instruction: Take 1 tablet by mouth once daily Rx Instructions: Take 1 tablet by mouth once daily calcium acetate(phosphat bind) 667 mg capsule 667 mg PO TIDWM Qty: 150 12RF Date of admission: 06/14/24 10:10 Primary Care Provider: Shahid Powell Admitting Provider: Lauren Carlson Attending physician on admission: Lauren Carlson Condition: Stable
[2024-06-18 12:48] LABS: Glucose Point of Care 85 mg/dl (65-105)
--- NOTE | 2024-06-18 13:00 | PC.NURSE ---
Back from dialysis via bed.
[2024-06-18] MEDS: AMOXICILLIN/CLAVULANATE K 500-125 MG TAB 1 TABLET PO (13:13)
[2024-06-18] MEDS: CALCIUM ACETATE 667 MG TABLET PO ×2 (13:13→17:19)
[2024-06-18] MEDS: ATORVASTATIN 40 MG TABLET PO (13:14)
[2024-06-18] MEDS: VITAMIN B CMPLX/VIT C/FOLIC AC 1 CAPSULE 1 CAP PO (13:14)
[2024-06-18] MEDS: VITAMIN E 400 UNIT CAPSULE PO (13:14)
[2024-06-18] MEDS: CHOLECALCIFEROL 1,000 UNITS TABLET 2000 UNITS PO (13:14)
[2024-06-18] MEDS: DICYCLOMINE HCL 10 MG CAPSULE PO ×2 (13:14→17:19)
--- NOTE | 2024-06-18 13:33 | HOMEO2EVAL ---
Evaluation was performed at [facility] Home Oxygen Evaluation RC: Home Oxygen (O2) Evaluation Start: 06/18/24 12:29 Freq: ONCE Status: Active Protocol: RPE Activity Type Activity Date Activity User E-sign Co-sign Detail Recorded Client Recorded Date Recorded By Document 06/18/24 12:10 KRM [id number] 06/18/24 13:33 KRM Document 06/18/24 12:20 KRM [id number] 06/18/24 13:33 KRM 06/18/24 06/18/24 12:10 12:20 Home O2 Evaluation [Oxygen] -Test Phase Resting Exercise -Oxygen Delivery Room Air Room Air [Pulse Oximetry] -Pulse Oximetry (90-100 %) 96 91 [Pulse Rate] -Pulse Rate (60-100 beats/min) 86 86 [Evaluation] -Activity Tolerance Poor [Comments] -Home Oxygen Evaluation Comments PT. IS VERY WEAK, ONLY ABLE TO STAND AT BEDSIDE AND PIVOT TO COMMOND. [Charges] -Evaluation Charges O2 Evaluation by Pulmonary
--- NOTE | 2024-06-18 16:54 | PM.IMPN ---
Progress Note: A&P Assessment and Plan (1) Influenza A: Code(s): J10.1 - Influenza due to other identified influenza virus with other respiratory manifestations Status: Acute (2) COVID-19: Code(s): U07.1 - COVID-19 Status: Acute (3) Acute on chronic respiratory failure with hypoxemia: Code(s): J96.21 - Acute and chronic respiratory failure with hypoxia Status: Acute (4) Multifocal pneumonia: Code(s): J18.9 - Pneumonia, unspecified organism Status: Acute Plan Patient presented with low oxygen level. Patient was diagnosed with influenza a on Monday via home test. Several other family members had influenza and COVID at home. Chronic oxygen at 3 L via nasal cannula. Also associated shortness of breath. Oxygen requirement has increased to 5 L. Attempted to go to dialysis however oxygen was low again and hence was sent to ED for evaluation. Associated cough no fever. In the ED vitals were stable afebrile oxygen saturation is adequate on 3 L oxygen via nasal cannula. Laboratory studies shows WBC of 3 hemoglobin of 10.9 platelet of 57. Creatinine was 6.7 consistent with end-stage renal disease. Electrolytes were unremarkable. D-dimer was elevated 1.48. BNP was more than 30,000 troponin was elevated at 0.402. Influenza a and COVID positive. Started on Tamiflu for influenza which will be continued as ordered. completes treatment today. Patient refused to get steroid or remdesivir for COVID infection. Chest x-ray revealed multifocal pneumonia.. CTA showed no evidence of PE but demonstrated multifocal pneumonia. Patient has been started on ceftriaxone and azithromycin. MRSA PCR negative. Blood culture negative to date. Elevated troponin likely demand ischemia due to hypoxia. Flat trend 0.402-0.33 1-0.339 Thrombocytopenia likely due to viral infection. Continue to monitor Acute hypoxic on chronic respiratory failure on oxygen 3 L at baseline. home oxygen eval prior to dc ESRD on dialysis Monday nephrology has been consulted for inpatient hemodialysis Hypothyroidism Type 2 diabetes Hypertension Hyperlipidemia Anxiety depression Osteoarthritis Gout Acute on chronic thrombocytopenia Leukopenia Anemia DVT prophylaxis SCDs due to thrombocytopenia Code status full code PT OT to see Subjective Date/time seen: 06/18/24 16:54 Interval history: No overnight events. Seen during the dialysis cough mild. Denies any shortness of breath. Review of Systems Review of Systems: All systems reviewed & are unremarkable except as noted in HPI and below (HPI) Exam Narrative: GENERAL: Well-appearing, well-nourished, and in no acute distress. HEAD: Normocephalic, atraumatic. EYES: PERRLA and EOMI. ENT: Nares clear, no rhinorrhea or epistaxis. Mucous membranes moist. NECK: Supple. CHEST: Coarse breath sounds bilaterally No respiratory distress. No wheezes HEART: Regular rate and rhythm. No murmur heard. Normal peripheral pulses. ABDOMEN: Soft, nontender, nondistended, normal active bowel sounds. EXTREMITIES: Normal range of motion. No edema. SKIN: Warm, dry, no rash. NEURO: No focal deficits. Alert and oriented x3. PSYCH: Normal mood and affect. Objective Data Vital Signs Vital Signs: Vital Signs - 24 hr 06/17/24 20:05 06/18/24 04:30 06/18/24 08:25 Temperature 98.3 F 97.8 F Pulse Rate 86 84 Respiratory Rate 20 20 Blood Pressure 123/65 130/67 Pulse Oximetry 100 100 100 Oxygen Delivery Nasal Cannula Oxygen Flow Rate 3 06/18/24 08:40 06/18/24 08:59 06/18/24 08:59 Temperature 98.1 F Pulse Rate 84 81 Respiratory Rate 18 Blood Pressure 123/79 116/65 Pulse Oximetry 98 Oxygen Delivery Oxygen Flow Rate 3 06/18/24 09:15 06/18/24 09:30 06/18/24 09:45 Temperature Pulse Rate 84 83 81 Respiratory Rate Blood Pressure 142/70 H 142/72 H 126/84 Pulse Oximetry Oxygen Delivery Oxygen Flow Rate 06/18/24 10:00 06/18/24 10:15 06/18/24 10:30 Temperature Pulse Rate 84 84 82 Respiratory Rate Blood Pressure 124/68 132/66 125/62 Pulse Oximetry Oxygen Delivery Oxygen Flow Rate 06/18/24 10:45 06/18/24 11:00 06/18/24 11:15 Temperature Pulse Rate 85 84 86 Respiratory Rate Blood Pressure 127/67 119/66 131/65 Pulse Oximetry Oxygen Delivery Oxygen Flow Rate 06/18/24 11:30 06/18/24 11:45 06/18/24 12:00 Temperature Pulse Rate 88 84 84 Respiratory Rate Blood Pressure 132/68 119/63 119/63 Pulse Oximetry Oxygen Delivery Oxygen Flow Rate 06/18/24 12:10 06/18/24 12:14 06/18/24 12:19 Temperature 97.3 F L Pulse Rate 86 81 86 Respiratory Rate 16 Blood Pressure 124/59 L 140/72 Pulse Oximetry 96 99 Oxygen Delivery Room Air Oxygen Flow Rate 06/18/24 12:20 06/18/24 14:00 Temperature 97.5 F L Pulse Rate 86 84 Respiratory Rate 18 Blood Pressure 121/58 L Pulse Oximetry 91 98 Oxygen Delivery Room Air Oxygen Flow Rate Intake/Output Intake/Output: Intake & Output 06/15/24 06/16/24 06/17/24 06/18/24 23:59 23:59 23:59 23:59 Intake Total 1280 2110 520 300 Output Total 1700 2000 Balance -420 2110 520 -1700 Meds/Results Medications: Active Medications Generic Name Dose Route Start Last Admin Trade Name Freq PRN Reason Stop Dose Admin Acetaminophen 650 mg 06/13/24 16:56 06/17/24 06:30 Acetaminophen 325 Mg Tablet PO 650 mg Q4H PRN Administration Mild Pain (1-3) or Fever Amoxicillin/Clavulanate Potassium 1 tablet 06/18/24 09:00 06/18/24 13:13 Amoxicillin/Clavulanate K 500-125 Mg Tab PO 06/19/24 09:01 1 tablet DAILY ARLYN Administration Atorvastatin Calcium 40 mg 06/14/24 10:00 06/18/24 13:14 Atorvastatin 40 Mg Tablet PO 40 mg DAILY ARLYN Administration Calcium Acetate 667 mg 06/14/24 12:00 06/18/24 13:13 Calcium Acetate 667 Mg Tablet PO 667 mg TIDWM ARLYN Administration Dicyclomine HCl 10 mg 06/14/24 17:00 06/18/24 13:14 Dicyclomine Hcl 10 Mg Capsule PO 10 mg BID ARLYN Administration Epoetin Vini-epbx 10,000 units 06/18/24 19:10 06/18/24 11:55 Epoetin Vini-Epbx 10,000 Units/Ml Vial IV PUSH 06/18/24 19:11 10,000 units ONCE ONE Administration Albumin Human 50 mls @ 999 mls/hr 06/13/24 17:48 06/15/24 17:15 Albutein IVPB 07/13/24 17:47 999 mls/hr Q10M PRN Administration HYPOTENSION Levothyroxine Sodium 112 mcg 06/14/24 10:00 06/18/24 06:24 Levothyroxine Sodium 112 Mcg Tablet BY MOUTH 112 mcg DAILY@0630 ARLYN Administration Mirtazapine 30 mg 06/14/24 21:00 06/17/24 20:30 Mirtazapine 30 Mg Tablet PO 30 mg QHS ARLYN Administration Oseltamivir Phosphate 30 mg 06/13/24 23:50 06/17/24 08:18 Oseltamivir Phosphate 30 Mg Capsule PO 06/18/24 23:49 30 mg Q48HR ARLYN Administration Sertraline HCl 50 mg 06/14/24 21:00 06/17/24 20:30 Sertraline Hcl 50 Mg Tablet PO 50 mg HS ARLYN Administration Sitagliptin Phosphate 100 mg 06/14/24 10:10 06/15/24 08:47 Sitagliptin Phosphate 100 Mg Tablet PO 07/15/24 10:09 Not Given DAILY ARLYN Vitamin B Complex/Folic Acid 1 cap 06/14/24 10:00 06/18/24 13:14 Vitamin B Cmplx/Vit C/Folic Ac 1 Capsule PO 1 cap DAILY ARLYN Administration Vitamin D 2,000 units 06/14/24 10:00 06/18/24 13:14 Cholecalciferol 1,000 Units Tablet PO 2,000 units DAILY ARLYN Administration Vitamin E 400 unit 06/15/24 09:00 06/18/24 13:14 Vitamin E 400 Unit Capsule PO 400 unit DAILY ARLYN Administration Radiology Results: ITS Impressions Chest CTA 06/13/24 16:24 IMPRESSION: 1. No pulmonary embolism. 2. Combination of mild pulmonary edema and multifocal pneumonia. 3. Cardiomegaly and enlargement of the central pulmonary arteries consistent with pulmonary arterial hypertension. 4. Unchanged mediastinal and left supraclavicular lymphadenopathy which is likely reactive. Chest X-Ray 06/18/24 08:35 IMPRESSION: 1. Improved diffuse lung disease, likely a combination of pneumonia and mild pulmonary edema. 2. Cardiomegaly. Labs Labs: Laboratory Results - last 24 hr 06/17/24 06/17/24 06/18/24 16:51 20:11 07:39 Sodium 136 L Potassium 4.1 Chloride 101 Carbon Dioxide 24 Anion Gap 11 BUN 29 H D Creatinine 6.05 H Estim Creat Clear Calc Not Reportable Estimated GFR 7 L Glucose 74 POC Capillary Glucose 95 129 H Calcium 8.7 Phosphorus 4.6 H Albumin 3.3 L 06/18/24 06/18/24 07:41 12:43 Sodium Potassium Chloride Carbon Dioxide Anion Gap BUN Creatinine Estim Creat Clear Calc Estimated GFR Glucose POC Capillary Glucose 79 85 Calcium Phosphorus Albumin
[2024-06-18 16:58] LABS: Glucose Point of Care 88 mg/dl (65-105)
[2024-06-18] MEDS: SERTRALINE HCL 50 MG TABLET PO (20:27)
[2024-06-18] MEDS: MIRTAZAPINE 30 MG TABLET PO (20:27)
[2024-06-18 20:54] LABS: Glucose Point of Care 164 mg/dl (65-105)
[2024-06-18] MEDS: ACETAMINOPHEN 325 MG TABLET 650 MG PO (23:20)
[2024-06-19 04:30] VITALS: BP 103/51; PULSE 86; RESP 20; TEMP 36.5; O2SAT 100
[2024-06-19] MEDS: LEVOTHYROXINE SODIUM 112 MCG TABLET BY MOUTH (06:33)
[2024-06-19 08:03] LABS: Glucose Point of Care 85 mg/dl (65-105)
[2024-06-19] MEDS: VITAMIN E 400 UNIT CAPSULE PO (08:38)
[2024-06-19] MEDS: CHOLECALCIFEROL 1,000 UNITS TABLET 2000 UNITS PO (08:38)
[2024-06-19] MEDS: DICYCLOMINE HCL 10 MG CAPSULE PO (08:38)
[2024-06-19] MEDS: CALCIUM ACETATE 667 MG TABLET PO ×2 (08:39→12:58)
[2024-06-19] MEDS: AMOXICILLIN/CLAVULANATE K 500-125 MG TAB 1 TABLET PO (08:39)
[2024-06-19] MEDS: ATORVASTATIN 40 MG TABLET PO (08:39)
[2024-06-19] MEDS: VITAMIN B CMPLX/VIT C/FOLIC AC 1 CAPSULE 1 CAP PO (08:39)
[2024-06-19] MEDS: ONDANSETRON INJ 4 MG/2 ML VIAL IV PUSH (09:27)
[2024-06-19 09:32] LABS: Hematocrit 36.4 % (37.0-47.0); Hemoglobin 10.9 g/dL (12.0-15.0); Immature Platelet Fraction Pct 5.4 % (0.9-11.2); Mean Corpuscular HGB Conc 29.9 g/dl (32-36); Mean Corpuscular Hemoglobin 30.6 pg (26-34); Mean Corpuscular Volume 102.2 fl (80-100); Mean Platelet Volume 10.9 fl (7.4-10.4); Platelet Count Result 75 k/mm3 (150-375); Red Blood Count 3.56 M/mm3 (4.2-5.4); Red Cell Distribution Width 15.5 % (11.5-14.5); White Blood Count 3.4 K/mm3 (4.5-10.0)
[2024-06-19 09:47] LABS: Alanine Aminotransferase 16 U/L (6-35); Albumin Level 3.3 g/dL (3.5-5.1); Alkaline Phosphatase 112 U/L (38-126); Anion Gap 9 mmol/L (4-12); Aspartate Amino Transferase 29 U/L (14-36); Bilirubin,Total 0.7 mg/dL (0.2-1.3); Blood Urea Nitrogen 17 mg/dL (7-17); Calcium 8.7 mg/dL (8.4-10.2); Carbon Dioxide 27 mmol/L (22-30); Chloride 101 mmol/L (98-107); Estimated Glomerular Filt Rate 11; Glucose 106 mg/dL (65-110); Potassium 3.9 mmol/L (3.4-5.0); Sodium 137 mmol/L (137-145)
[2024-06-19 11:27] LABS: Glucose Point of Care 120 mg/dl (65-105)
--- NOTE | 2024-06-19 13:42 | P.DS_ITS ---
DS: Admitting Diagnosis Discharge Date 06/19/24 Admitting Diagnosis Acute on chronic respiratory failure with hypoxia secondary to influenza and COVID DS: Discharge Diagnosis Discharge Diagnosis (1) Influenza A: Code(s): J10.1 - Influenza due to other identified influenza virus with other respiratory manifestations Status: Acute (2) COVID-19: Code(s): U07.1 - COVID-19 Status: Acute (3) Acute on chronic respiratory failure with hypoxemia: Code(s): J96.21 - Acute and chronic respiratory failure with hypoxia Status: Acute (4) Multifocal pneumonia: Code(s): J18.9 - Pneumonia, unspecified organism Status: Acute DS: Summary Hospital Course Reason for hospitalization: Acute on chronic respiratory failure with hypoxia secondary to influenza and COVID Hospital Course: Patient had presented with low oxygen leve to ED and was diagnosed with influenza a on Monday via home test prior to arrival. The patient was diagnosed with influenza a on Monday06/10/2024 via a home test. Other family members also had influenza and COVID.On the day prior to admission on 06/12/2024 the patient O2 saturation dropped to 79%. They increased her to 5 L. then at dialysis on 06/13/2024 she was again bumped up to 5 L. patient reports she had reported a dry cough but no fevers or shortness of breath. In the ER she was saturating well on 3 L. she was noted to have occasional expiratory wheezing and rhonchi in the bases bilaterally. Her other vitals were largely stable. CTA of chest did not demonstrate a PE, did reveal pulmonary edema and multifocal pneumonia. Cardiomegaly and enlargement of central pulmonary arteries consistent with pulmonary artery hypertension and unchanged mediastinal left supraclavicular lymphadenopathy. She has chronic thrombocytopenia in admission a platelet count of 57. EKG with out acute ischemia. Troponin 0.402 and then 0.331. Viral screens positive for influenza a and COVID 19. Patient was admitted and started on Tamiflu for influenza which will be continued as ordered and patient refused to get steroid or remdesivir for COVID infection. Chest x-ray had revealed multifocal pneumonia and CTA showed no evidence of PE but demonstrated multifocal pneumonia, patient was then started on ceftriaxone and azithromycin. MRSA PCR negative. Blood culture draen and remained negative. She did have elevated troponin likely demand ischemia due to hypoxia and ESRD. Flat trend 0.402-0.33 1-0.339 Thrombocytopenia noted likely due to acute viral infection monitored and improved no need for PLT. Nephrology was consulted to assist in patient's dialysis treatment. And a repeat home oxygen evaluation was completed prior to discharge recommended to L at rest and 3 L with activity. Patient overall improved treatment and completed her antibiotics and Tamiflu seen assessed on day of discharge in no acute distress and currently on her 2 L nasal cannula supplemental oxygen patient denied any further complaints and was discharged home with daughter plans for dialysis following day 06/20. Status at Discharge Functional status at discharge: uses cane/walker Overall status at discharge: patient is back to baseline Time Spent with Patient Time attestation: Total time spent providing and/or coordinating discharge services: Time spent: Greater than 30 minutes Exam Narrative: GENERAL: Well-appearing, well-nourished, and in no acute distress. HEAD: Normocephalic, atraumatic. EYES: PERRLA and EOMI. ENT: Nares clear, no rhinorrhea or epistaxis. Mucous membranes moist. NECK: Supple. CHEST: Coarse breath sounds bilaterally No respiratory distress. No wheezes HEART: Regular rate and rhythm. No murmur heard. Normal peripheral pulses. ABDOMEN: Soft, nontender, nondistended, normal active bowel sounds. EXTREMITIES: Normal range of motion. No edema. SKIN: Warm, dry, no rash. NEURO: No focal deficits. Alert and oriented x3. PSYCH: Normal mood and affect. DS: Data Data Completed and Pending Labs on day of discharge: Labs from last 24 hours 06/19/24 06/19/24 06/19/24 11:24 09:12 08:00 WBC 3.4 L RBC 3.56 L Hgb 10.9 L Hct 36.4 L MCV 102.2 H MCH 30.6 MCHC 29.9 L RDW 15.5 H Plt Count 75 L MPV 10.9 H % Immature Plt Fraction 5.4 Sodium 137 Potassium 3.9 Chloride 101 Carbon Dioxide 27 Anion Gap 9 BUN 17 D Creatinine 4.04 H Estim Creat Clear Calc Not Reportable Estimated GFR 11 L Glucose 106 POC Capillary Glucose 120 H 85 Calcium 8.7 Magnesium 2.0 Total Bilirubin 0.7 AST 29 ALT 16 Alkaline Phosphatase 112 Total Protein 7.0 Albumin 3.3 L 06/18/24 06/18/24 20:49 16:42 WBC RBC Hgb Hct MCV MCH MCHC RDW Plt Count MPV % Immature Plt Fraction Sodium Potassium Chloride Carbon Dioxide Anion Gap BUN Creatinine Estim Creat Clear Calc Estimated GFR Glucose POC Capillary Glucose 164 H 88 Calcium Magnesium Total Bilirubin AST ALT Alkaline Phosphatase Total Protein Albumin Imaging Radiologist's impression: Radiology Results: ITS Impressions Chest X-Ray 06/13/24 16:09 IMPRESSION: 1. Diffuse bilateral interstitial and airspace opacities most likely mild to moderate pulmonary edema related to congestive heart failure with differential including pneumonia. 2. Cardiomegaly with enlargement of the central pulmonary arteries consistent with pulmonary arterial hypertension. Chest CTA 06/13/24 16:24 IMPRESSION: 1. No pulmonary embolism. 2. Combination of mild pulmonary edema and multifocal pneumonia. 3. Cardiomegaly and enlargement of the central pulmonary arteries consistent with pulmonary arterial hypertension. 4. Unchanged mediastinal and left supraclavicular lymphadenopathy which is likely reactive. Discharge Plan Discharge Attending physician on discharge: Misael Barrett Consulting providers: Tara Morley Discharging Clinician: Clari Valencia Anticipated Discharge Date/Time: 06/19/24 12:05 Patient Disposition: Home Health Service Activity: as tolerated Diet: diabetic and renal Discharge Instructions: Per Care Coordination, patient to discharge with [facility] ([phone]) for PT/OT and fdc services. Agency will call to arrange initial visit week of 06/23/24. COVID/Influenza/Pneumonia: * Symptom management at home with acetaminophen for pain aches fever * I prescribed Zofran as needed for nausea * You have completed your antibiotic therapy for pneumonia while hospitalized * Continue with Dialysis TTS How can you care for yourself at home? ? Keep track of any new symptoms or changes in your symptoms. ? Rest until you feel better. ? Be safe with medicines. Take your medicines exactly as prescribed. Call your doctor if you think you are having a problem with your medicine. ? Do not drive after taking a prescription pain medicine. ? Ensure to follow-up with primary care physician as indicated and provide upd ed medication list provided to you at discharge. When should you call for help? Call 911 anytime you think you may need emergency care. For example, call if: ? You passed out (lost consciousness). Call your doctor now or seek immediate medical care if: ? You have new symptoms like fever, difficulty breathing, Chest pain, vomiting, or rash. ? You have new or different pain. ? You are confused and are having trouble thinking clearly. ? Your symptoms are getting worse. Watch closely for changes in your health, and be sure to contact your doctor if: ? You do not get better as expected. Patient Instructions: Antibiotic Form Patient Language: Luxembourger Stand Alone Forms: General Discharge Information Follow-up/Referrals: Shahid Powell MD [Primary Care Provider] - 1 Week Discharge Medications: Continued mirtazapine 30 mg tablet 30 mg PO QHS Qty: 90 1RF cholecalciferol (vitamin D3) 50 mcg (2,000 unit) capsule 50 mcg PO DAILY vitamin E (dl, acetate) 180 mg (400 unit) capsule 180 mg PO DAILY atorvastatin 40 mg tablet 40 mg PO DAILY sertraline 50 mg tablet 50 mg PO HS Tradjenta 5 mg tablet 5 mg PO DAILY Triphrocaps 1 mg capsule 1 cap PO DAILY dicyclomine 10 mg capsule 10 mg PO BID Qty: 60 4RF levothyroxine 112 mcg tablet See Rx Instructions .ROUTE .COMPLEX Qty: 90 0RF Dose Instruction: Take 1 tablet by mouth once daily Rx Instructions: Take 1 tablet by mouth once daily calcium acetate(phosphat bind) 667 mg capsule 667 mg PO TIDWM Qty: 150 12RF Date of admission: 06/14/24 10:10 Primary Care Provider: Shahid Powell Admitting Provider: Lauren Carlson Attending physician on admission: Clari Valencia Condition: Stable Quality -Patient's previous records reviewed on admission -ER notes reviewed in detail on admission -discussed all findings and current treatment plan with patient/Family/POA -Consultations reviewed for recommendations -Patient's disposition for safe discharge discussed with complex case manager Dictation performed by [employer] direct speech recognition software, therefore tariff counsel variants and typographical errors may occur. Hospitalist MIPS Heart Failure (Exclusion) Patient has history of Heart Transplant or Left Ventricular Assistive Device?: No IF YES, STOP HERE Heart Failure (Qualifier) Patient has current or prior documentation of LVEF less than or equal to 40%, or mod/servere depressed LVSF?: No IF NO, STOP HERE
== END 2024-06-19 13:20 | disposition home health service (06) | DRG 177 ==
LOC: ANHED 15:32 → ANHIMU 18:45 → ANH3MEDSUR 06-17 14:32 → ANHIMU 06-21 13:14
PROVIDERS: General Practice; Internal Medicine; Internal Medicine Nephrology; Physician Assistant; Admitting Provider Internal Medicine; Emergency Provider Emergency Medicine; PCP Family Medicine Adolescent Medicine; Visit Provider Nurse Practitioner Family
DX: U07.1 COVID-19 (principal); J18.9 Pneumonia, unspecified organism; J96.21 Acute and chronic respiratory failure with hypoxia; N18.6 End stage renal disease; I24.89 Other forms of acute ischemic heart disease; J10.1 Influenza due to other identified influenza virus with other respiratory manifestations; D69.6 Thrombocytopenia, unspecified; D63.1 Anemia in chronic kidney disease; E11.42 Type 2 diabetes mellitus with diabetic polyneuropathy; E03.9 Hypothyroidism, unspecified; M17.0 Bilateral primary osteoarthritis of knee; M10.9 Gout, unspecified; Z99.2 Dependence on renal dialysis
CPT/HCPCS: 36415; 71045; 71275; 80048; 80053; 80069; 82948; 83735; 83880; 84484; 85025; 85027; 85055; 85380; 85610; 85730; 86706; 87040; 87340; 87637; 87641; 93005; 94618; 96365; 96368; 96375; 97161; 97165; 99285; A9270; G0257; G0378; J0456; J0696; J1644; J2405; J7030; P9047; Q5105; Q9967

== ENCOUNTER 2024-06-25 14:06 | Outpatient (CLI) | payer MEDICARE, SELFPAY ==
--- NOTE | ~2024-06-25 | XR_ITS ---
XR chest 2V 06/25/2024 14:31 Indication: Influenza Procedure: 2 view chest Comparison: Comparison to multiple prior studies sequentially, with oldest reviewed study dated 11/2023. Findings: Moderate cardiomegaly with interstitial edema. Enlarged pulmonary arteries consistent with pulmonary hypertension. There is atherosclerosis and ectasia of the aorta. No significant effusion. N o pneumothorax. Impression: 1: Moderate cardiomegaly with interstitial edema. Reviewed, dictated and finalized at location B. CTOR DESIGN Impression: 1: Moderate cardiomegaly with interstitial edema.
== END 2024-06-25 14:07 | disposition home or self-care (01) ==
PROVIDERS: PCP Family Medicine Adolescent Medicine; Visit Provider Internal Medicine Nephrology
DX: J10.1 Influenza due to other identified influenza virus with other respiratory manifestations (principal); R05.9 Cough, unspecified; R91.8 Other nonspecific abnormal finding of lung field
CPT/HCPCS: 71046

== ENCOUNTER 2024-09-11 09:04 | Outpatient (CLI) | payer MEDICARE, SELFPAY ==
--- NOTE | ~2024-09-11 | XR_ITS ---
MODIFIED ESOPHAGRAM HISTORY: Pneumonia TECHNIQUE: Modified barium esophagram was performed on 09/11/2024. I administered fluoroscopy and perfo rmed the exam with speech pathologist. Patient was seated for lateral fluoroscopic imaging for inges tion of thin liquids, pudding, solids and quantified amounts, followed by thin liquids in uncontrolle d amounts. This was recorded on tape. A single fluoroscopic spot image was also recorded. The DAP for this procedure was 0.802 Gycm2. The amount of fluoroscopy time used during this procedure was 1.4 mi nutes. FINDINGS: Oral stage: Adequate function. Pharyngeal stage: Adequate function. Cervical/esophageal stage: Adequate function. IMPRESSION: Patient tolerated regular consistency oral feedings in the upright position. Please miko elate with speech pathologist findings and specific feeding recommendations. Reviewed, dictated and finalized at location A. IMPRESSION: Patient tolerated regular consistency oral feedings in the upright position. Please correlate with speech pathologist findings and specific feedi ng recommendations.
--- OUTSIDE RECORDS SUMMARY | 2024-09-11 09:25 | XMS_ITS | Clinical Summary ---
Author Organization [facility] Address [address] [place] [address] Care Team Providers Care Supervisor Fish Processing Name Role Phone Shahid Powell MD Primary Care Provider + Source Comments [facility],non-owned Affiliates and Associated Physician Practices is amultiple site organization consisting of ambulatory clinics and hospital sitesin [place], [place], [place] and [place]. This disclosure is being madepursuant to the Care Everywhere program and may not contain all information available regarding this patient. Last updated 18.[facility] Allergies Active Allergy Reactions Criticality Noted Date Comments Ibuprofen GI Discomfort Low 06/16/2018 Medications * Be aware that medications may not be up to date on this document. Alwaysverify current medications with the patient. atorvastatin (LIPITOR) 40 MG tablet Take 1 [...] Also one each snack 09/21/2020 Active B Sevodpt-G-Ilmxw Acid (TRIPHROCAPS) 1 MG CAPS 10/19/2020 Active [...] by mouth once daily Slow Release Active Probiotic Product (TRUBIOTICS DIGEST + [employer] HEALTH PO) Take 1 tablet by mouth [...] Encounters Date Type Department Care Team Description 07/17/2024 12:58 PM CDT - 07/17/2024 11:59 PM CDT Hospital Encounter [facility] [address] [place] [address], [address] [place] [address] Lucio Singh MD Javed, DO Richard Fung Thomas B, MD Majeed, M. 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 Gender Identity Not on file Sexual Orientation Not on file Last Filed Vital Signs Vital Sign Reading Time Taken Comments Blood Pressure 115/64 07/17/2024 2:25 PM CDT Pulse 80 07/17/2024 2:25 PM CDT Temperature 37.2 C (98.9 F) 07/17/2024 1:21 PM CDT Respiratory Rate 7 07/17/2024 2:25 PM CDT Oxygen Saturation 94% 07/17/2024 2:25 PM CDT Inhaled Oxygen Concentration - - Weight 59 kg (130 lb) 07/17/2024 1:21 PM CDT Height 139.7 cm (4' 7 ) 07/17/2024 1:21 PM CDT Body Mass Index 30.21 07/17/2024 1:21 PM CDT Plan of Treatment Upcoming Encounters Date Type Department Care Team (Late st Contact Info) Description 01/15/2025 2:45 PM CDT Appointment [facility] [address] [facility], [address] [place] [address] [place] [address] [facility] [address] [place] [address] [place] [address] [address] [place] [address] [facility] [address] [place] [address] Calvin Lynne MD [address] [place] [address] Ronald Rosas MD [address] [place] [address] [place] [address] [facility] [address] [place] [address] [place] [address] [facility] [address] [place] [phone] Health Maintenance Due Date Last Done Comments BONE DENSITY TESTING 1945 DTAP/TDAP/TD VACCINES (1 - Tdap) 10/14/1962 ZOSTER VACCINE (1 of 2) 10/14/1993 PNEUMOCOCCAL VACCINE 50+ (2 of 2 - PCV) 05/08/2018 05/08/2017 Respiratory Syncytial Virus (RSV) Vaccine Pt: or over 60 yrs (1 - 1-dose 75+ series) 10/14/2018 COVID-19 VACCINE ( - season) 2024 07/24/2020, 07/04/2020 DEPRESSION SCREENING 05/08/2024 MEDICARE AWV CALENDAR YEAR 2024 INFLUENZA VACCINE (Season Ended) 2025 02/18/2018 HEPATITIS B VACCINE Completed 01/31/2020, 03/29/2019, 11/23/2018, Additional history exists HIB VACCINE Aged Out No longer eligi ble based on patient's age to complete this topic HPV VACCINE Aged Out No longer eligi ble based on patient's age to complete this topic MENINGOCOCCAL (Group B) VACCINE SHARED DECISION-MAKING Aged Out No longer eligible based on patient's age to complete this topic MENINGOCOCCAL GROUPS A/C/Y/W VACCINE Aged Out No longer eligible based on patient's age to complete this topic Medical Devices Implanted Type Area Sr. Payroll Processor Device Identifier Shelf Expiration Date Model / Serial / Lot Graft Vasc 4-7mm 40cm Grtx Std Wl Tpr Ln - [id number] Implanted:Qty: 1 on 10/02/2019 by Lucio Singh MD at [facility] Left: [employer] 12/03/2023 [id number] / [id number] / Procedures Procedure Name Priority Date/Time Associated Diagnosis Comments CARDIAC RHYTHM STRIP ORDER 07/18/2024 5:18 PM CDT IR ANGIO AV SHUNT IMAGING Routine 07/17/2024 2:10 PM CDT ESRD (end stage renal disease) from Last 3 Months Results * CARDIAC RHYTHM STRIP ORDER (07/18/2024 5:18 PM CDT) Narrative 07/18/2024 5:18 PM CDT Ordered by an unspecified provider. us Scanned Document CARDIAC SERVICES ORDERABLES Fin al Result * IR Angio Av Shunt Imaging (07/17/2024 2:10 PM CDT) Anatomical Region Laterality Modality Lower Extremity, Upper Extremity, Chest X-Ray Angiography Narrative 07/17/2024 2:13 PM CDT Laci De Leon MD 07/17/2024 2:18 PM [facility] Gisele Centeno 1945 DATE OF PROCEDURE: 07/17/2024 ORDERING PHYSICIAN: Francisco PROCEDURE: Left AV fistulogram with peripheral venous angioplasty using IV conscious sedation INDICATIONS FOR PROCEDURE: Intermittent prolonged bleeding following decannulation DESCRIPTION OF PROCEDURE:The patient s left upper arm was prepped and draped in the normal sterile manner. Using local anesthesia the access was punctured with the needle directed towards the central circulation. A guidewire was advanced under fluoroscopy and a 5 [place] catheter placed. Digital subtraction images were obtained from the arterial anastomosis to the level of the SVC. Reflux examination showed a nicely patent arterial anastomosis. In the stick zone of the graft there was a high-grade stenosis of about 80%. The graft vein anastomosis and central veins were nicely patent. A decision was made to perform angioplasty. The 5 [place] sheath was upsized to a 6 [place] sheath. Moderate IV conscious sedation was administered by Dr. De Leon using 50mcg of Fentanyl. The patient's airway and condition was evaluated immediately prior to sedation and/or analgesia. The patient was independently monitored by a registered nurse for 25 minutes using automated blood pressure, EKG, end tidal CO2, and pulse oximetry. There were no complications. Bentson wire was manipulated across the stenosis and an 8 mm x 4 cm balloon was dilated to 12 atmospheres for 30 seconds with an excellent clinical and radiographic result. A total of 15 cc of contrast and 2.3 mGy radiation were used for the procedure. The balloon wire and sheath were removed and direct digital pressure was used for hemostasis. The patient left the center in stable and satisfactory condition. FINDINGS: Hemodynamically significant approximately 80% stenosis stick zone of graft IMPRESSION: Successful peripheral venous angioplasty using IV conscious sedation as described DICTATED BY: Laci De Leon M.D. 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
--- OUTSIDE RECORDS SUMMARY | 2024-09-11 09:25 | XMS_ITS | Clinical Summary ---
Author Organization [facility] Address [address] [place] [address] Phone Care Team Providers Care Dietary Services Director Name Role Phone Unavailable Primary Care Provider Unavailabl e Social History Tobacco Use Types Packs/Day Years Used Date Smoking Tobacco: Never Assessed Comments Unknown Sex and Gender Information Value Date Recorded Sex Assigned at Not on file Legal Sex Female 7:22 AM MDT Gender Identity Not on file Sexual Orientation Not on file Plan of Treatment Health Maintenance Due Date Last Done Comments Pneumococcal PPSV23/PCV13 65 + Years / Low and Medium Risk (1 of 4 - PCV) 10/14/1993 Influenza Vaccine (Season Ended) 2025
--- OUTSIDE RECORDS SUMMARY | 2024-09-11 09:26 | XMS_ITS | Encounter Summary ---
Author Organization [facility] Address [address] [place] [address] Care Team Providers Care Provider Engagement Executive Name Role Phone Shahid Powell MD Primary Care Provider + Encounter Details Date Type Department Care Team ([facility] Contact Info) Description 09/27/2018 [facility] Outpatient Visit [facility] [address] [place] [address] [place] [address] [facility] [address] [place] [phone] Social History Tobacco Use Types Packs/Day Years Used Date Smoking Tobacco: Never Smokeless Tobacco: Never Alcohol Use Standard Drinks/Week Comments No 0 (1 standard drink = 0.6 oz pur e alcohol) Comments Unknown Sex and Gender Information Value Date Recorded Sex Assigned at Not on file 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 Gender Identity Not on file Sexual Orientation Not on file documented as of this encounter Plan of Treatment Upcoming Encounters Date Type Department Care Team ([facility] Contact Info) Description 01/15/2025 2:45 PM CDT Appointment [facility] [address] [facility], [address] [place] [address] [place] [address] [facility] [address] [place] [address] [place] [address] [address] [place] [address] [facility] [address] [place] [address] Calvin Lynne MD [address] [place] [phone] Ronald Rosas MD [address] [place] [id number] [place] [address] [facility] [address] [place] [phone] [place] [address] [facility] [address] [place] [phone] documented as of this encounter Visit Diagnoses Not on filedocumented in this encounter Care Teams Provider Engagement Executive Relationship Specialty Start Date End Date Shahid Powell MD [address] [place] [address] [address] [place] [address] PCP - General 10/05/10 documented as of this encounter
--- OUTSIDE RECORDS SUMMARY | 2024-09-11 09:26 | XMS_ITS | Clinical Summary ---
Author Organization [facility] Address [address] [place] [address] Care Team Providers Care Ballpoint Pens Assembler Name Role Phone Unavailable Primary Care Provider [...] (163 lb 2.3 oz) 07/11/2018 9:00 AM VISION REHABILITATION THERAPIST Height 139.7 cm (4' 7 ) 06/29/2018 2:21 PM VISION REHABILITATION THERAPIST Body Mass Index 37.92 06/29/2018 2:21 PM VISION REHABILITATION THERAPIST Plan of Treatment Not on file Advance Directives * Full Resuscitation (Latest Code Status on File) Date Activated Date Inactivated Comments 06/17/2018 11:21 AM 07/16/2018 11:52 PM * Full Resuscitation Date Activated Date Inactivated Comments 06/17/2018 5:54 AM 06/17/2018 11:21 AM
--- OUTSIDE RECORDS SUMMARY | 2024-09-11 09:26 | XMS_ITS | Continuity of Care Document ---
Author Organization [facility] Address [address] [place] [address] [address] [place] [address] Phone Care Team Providers Care Film Flat Inspector Name Role Phone Alexa Harley Unavailable Unavailable Procedures Procedure Date Office/outpatient Visit, Est Eye Exam Established Pt Advance Directives Directive Yes / No Effective Date File Name No Information Encounters Encounter Description Practice Location Reason(s) For Visit Diagnoses Date Provider Providers Copied on Encounter Office/outpat ient Visit, Est [facility], [address] [place] [address] [address], [place], [place], [id number], tel:[phone] [facility] No Information [address] , [address], [place], [place], [facility], [place]. tel:[phone] [facility], [address] [place] [address] [address], [place], [place], [id number], tel:[phone] [facility] No Information Apr-[address] , [address], [place], [place], [facility], [place]. tel:[phone] Family History Family Member Type Diagnosis Age At Onset No Information Payers Payer name Insurance type Covered democrat ID Authoriza tion(s) No Information Social History [...]
--- NOTE | 2024-09-11 11:59 | REHSTMBS ---
Assessment and note entered by Nadia Packer, BEER RUNNER Modified Barium Swallow Evaluation ICD-10 Condition Codes (ST) Dysphagia, unspecified R13.1 Feeding Type Recommended Non-Oral Food Consistency Regular, Easy to Chew (7) Liquid Consistency Thin (0) ST Clinical Summary The above pleasant and cooperative patient was seen for an outpatient modified barium swallow. She was alert, oriented, and able to follow simple commands, but stated she didn't have a swallowing problem that she was aware of. She stated she has had recurring pneumonia, which is the reason for this test. She is currently on a regular diet and denies choking. Oral mucosa is normal, but natural dentition is in poor condition with many missing teeth. An informal oral peripheral exam revealed lingual and labial structures to be normal. Before testing vocal quality was clear. The patient was seated for a lateral view and presented with 5 ml of thin liquid barium via a spoon, pudding consistency barium via a spoon, a cracker coated with barium pudding via a spoon, and uncontrolled thin liquid barium. This was presented via a cup & straw. Oral preparatory and oral phase symptoms: none. Pharyngeal phase symptoms: none. Esophageal stage symptoms: none. No aspiration occurred. Impressions: Normal swallow Ability No further ST is warranted at this time.
== END 2024-09-11 09:05 | disposition home or self-care (01) ==
LOC: ANHIMG 09:05
PROVIDERS: PCP Family Medicine Adolescent Medicine; Visit Provider Internal Medicine Critical Care Medicine
DX: J18.9 Pneumonia, unspecified organism (principal); J96.11 Chronic respiratory failure with hypoxia
CPT/HCPCS: 92611

== ENCOUNTER 2024-10-15 13:20 | Outpatient (CLI) | payer MEDICARE, SELFPAY ==
--- NOTE | ~2024-10-15 | XR_ITS ---
XR chest 2V 10/15/2024 13:36 Indication: Crackles in chest. Procedure: 2 view chest Comparison: Comparison to multiple prior studies sequentially, with oldest reviewed study dated 01/25. Findings: Cardiomegaly with interstitial edema. No significant effusion. No pneumothorax. No acute os seous abnormality. Right basilar atelectasis. Elevated right diaphragm. Impression: 1: Cardiomegaly with interstitial edema. Reviewed, dictated and finalized at location B. Impression: 1: Cardiomegaly with interstitial edema.
== END 2024-10-15 13:21 | disposition home or self-care (01) ==
LOC: MICIMG 13:21
PROVIDERS: PCP Family Medicine Adolescent Medicine; Visit Provider Family Medicine Adolescent Medicine
DX: J96.11 Chronic respiratory failure with hypoxia (principal); I51.7 Cardiomegaly
CPT/HCPCS: 71046

== ENCOUNTER 2024-11-06 15:10 | Inpatient (IN) | payer MEDICARE, SELFPAY ==
[2024-11-06] VITALS (10 sets, daily range): BP systolic 105–155; BP diastolic 62–77; PULSE 80–88; RESP 12–22; TEMP 36.2–36.7; O2SAT 92–98; BMI 31.7
--- NOTE | ~2024-11-06 | US_ITS ---
EXAMINATION: US right upper quadrant DATE: 11/10/2024 14:22 INDICATION: macrocytosis; assess for ascites, cirrhosis TECHNIQUE: Multiple grayscale and Doppler ultrasound images of the right upper quadrant were obtained . COMPARISON: CT abdomen pelvis 10/08/2017. FINDINGS: The visualized portions of the pancreas are normal. The liver is enlarged with normal echog enicity and echotexture. No surface nodularity. Normal hepatopetal flow in the main portal vein. Gall bladder not visualized. The common bile duct measures 4 mm. There was no sonographic Miramontes sign. IMPRESSION: Gallbladder not visualized, possibly secondary to cholecystectomy, correlate with surgical history. H epatomegaly. Otherwise unremarkable right upper quadrant ultrasound findings. Reviewed, dictated and finalized at location K. IMPRESSION: Gallbladder not visualized, possibly secondary to cholecystectomy, correlate wi th surgical history. Hepatomegaly. Otherwise unremarkable right upper quadrant ultrasound findings.
--- NOTE | ~2024-11-06 | XR_ITS ---
XR chest 1V portable Ordering provider: Tara Morley MD History: 79 years Female with . SOB and pneumonia . Comparison: November 07, 2024 FINDINGS: MEDIASTINUM: The cardiac silhouette is slightly enlarged. Congestive tanvir. LUNGS: No pneumothorax. Opacification the right lower lobe is seen suggestive of atelectasis versus p neumonia with pleural effusion. Bilateral interstitial thickening suggestive of pulmonary edema versu s pneumonitis. OTHER: No free air under the diaphragm. IMPRESSION: Right basilar atelectasis versus pneumonia with pleural effusion. Underlying pulmonary edema. Reviewed, dictated and finalized at location A.
--- NOTE | ~2024-11-06 | XR_ITS ---
EXAMINATION: SNIFF TEST W/O CXR +FLUORO<1HR DATE: 04/06/11 11:13:00 INDICATION: Elevated right hemidiaphragm TECHNIQUE: Fluoroscopy was utilized for evaluation of diaphragmatic excursion with rapid inspiration. A total of 131 fluoroscopic images were recorded. Fluoroscopy exposure time was 0.1 minutes. Total D AP was 1.264 Gycm^2. COMPARISON: None. FINDINGS: Elevation of the right hemidiaphragm. There is relatively symmetric caudal excursion of both the left and right leaves of the diaphragm with rapid inspiration. IMPRESSION: 1. Normal sniff test. No evidence of phrenic nerve palsy. Reviewed, dictated and finalized at location A.
--- NOTE | ~2024-11-06 | XR_ITS ---
CHEST RADIOGRAPH CLINICAL HISTORY: cough, wheezing, short of breath . COMPARISON: 10/15/2024 TECHNIQUE: Single portable view of the chest. FINDINGS The cardiomediastinal silhouette is markedly enlarged, unchanged. Increased interstitial markings are identified bilaterally, findings suggesting moderate pulmonary va scular congestion. Patchy opacification of the right mid to upper lung field for which an early infiltrate is suspected. Patchy opacification of the left mid chest is also identified for which an early infiltrate is suspec cyndi. IMPRESSION: Redemonstration of significant cardiomegaly with moderate pulmonary vascular congestion and multifoca l pneumonia suspected. Reviewed, dictated and finalized at location A. IMPRESSION: Redemonstration of significant cardiomegaly with moderate pulmonary vascular co ngestion and multifocal pneumonia suspected.
--- NOTE | ~2024-11-06 | CT_ITS ---
CT Scan of the Chest without Contrast: Clinical Indication: Pneumonia Technique: Contiguous sections were acquired throughout the chest without intravenous contrast. Dose reduction technique was used on this scan by utilizing automated exposure control and iterative recon struction technique. The dose-length product (DLP) was 114.90 mGy-cm. COMPARISON: 06/13/2024 Findings: There is cardiomegaly with extensive atherosclerotic calcification of the aorta and coronary arteries . There is no evidence of pleural or pericardial effusion. There is patchy consolidation extensive involving the right lung. There is probable partial right mid dle lobe atelectasis. There is probable minimal atelectatic change at the lingula and the anterobasil ar left lower lobe. Images through the upper abdomen reveal no abnormalities. Impression: Patchy consolidation extensively involving the right lung is most compatible with pneumonia. Partial right middle lobe atelectasis and mild atelectatic change at the left lung base. Cardiomegaly with atherosclerotic disease. Reviewed, dictated and finalized at location . Impression: Patchy consolidation extensively involving the right lung is most compatible wi th pneumonia. Partial right middle lobe atelectasis and mild atelectatic change at the left l vijaya base. Cardiomegaly with atherosclerotic disease.
--- NOTE | ~2024-11-06 | XR_ITS ---
CHEST RADIOGRAPH CLINICAL HISTORY: SOB with pulmonary vascular congestion... . COMPARISON: 11/06/2024 TECHNIQUE: Single portable view of the chest. FINDINGS The cardiomediastinal silhouette is enlarged, unchanged. Increased opacification of the right hemithorax, when compared with previous days examination. Increased interstitial markings are identified bilaterally, findings suggesting moderate pulmonary va scular congestion. The left hemithorax is primarily clear. IMPRESSION: Increased opacification of the right hemithorax with moderate pulmonary vascular congestion. Reviewed, dictated and finalized at location A. IMPRESSION: Increased opacification of the right hemithorax with moderate pulmonary vascula r congestion.
--- NOTE | ~2024-11-06 | XR_ITS ---
Portable chest x-ray Comparison: 11/08/2024 Clinical History: Pneumonia Findings: Extensive patchy right lung airspace consolidation is present. Left lung clear. There is p robable elevation of the right hemidiaphragm. Cardiomediastinal silhouette is stable. Bones and soft tissues are unremarkable. Impression: Extensive right lung pneumonia. Reviewed, dictated and finalized at location . Impression: Extensive right lung pneumonia.
--- NOTE | 2024-11-06 15:18 | ECG_ITS ---
Test Date: 2024-11-06 15:17:10 Measurements Intervals [place] Rate: 87 P: 49 UT: 261 QRS: 9 QRSD: 177 T: -17 QT: 389 QTc: 470 Interpretive Statements SINUS RHYTHM WITH FIRST DEGREE AV BLOCK RIGHT BUNDLE BRANCH BLOCK [120+ ms QRS DURATION, UPRIGHT V1, 40+ ms S IN I/aVL/V4/V5/V6] Compared to ECG 06/13/2024 13:20:38 First degree AV block now present Ectopic atrial rhythm no longer present Electronically Signed On 11-07-2024 16:34:11 CDT by Dada Christine
--- OUTSIDE RECORDS SUMMARY | 2024-11-06 15:41 | XMS_ITS | Encounter Summary ---
Author Organization [facility] Health Address [address] [place] [address] Care Team Providers Care Editor Managing Director Name Role Phone Shahid Powell MD Primary Care Provider + Encounter Details Date Type Department Care Team ([facility] Contact Info) Description 09/27/2018 [facility] Outpatient Visit [facility] [address] [place] [address] [place] [address] [facility] [address] [place] [id number] Social History Tobacco Use Types Packs/Day Years Used Date Smoking Tobacco: Never Smokeless Tobacco: Never Alcohol Use Standard Drinks/Week Comments No 0 (1 standard drink = 0.6 oz pur e alcohol) Comments Unknown Sex and Gender Information Value Date Recorded Sex Assigned at Not on file 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, [address] [place] [address] [place] [address] [facility] [address] [place] [address] [place] [address] [address] [place] [address] [facility] [address] [place] [address] Calvin Lynne MD [address] [place] [phone] Ronald Rosas MD [address] [place], [place] [id number] [place] [address] [facility] [address] [place] [address] [place] [address] [facility] [address] [place] [phone] documented as of this encounter Visit Diagnoses Not on filedocumented in this encounter Care Teams Editor Managing Director Relationship Specialty Start Date End Date Shahid Powell MD [address] [place] [address] [address] [place] [address] PCP - General 10/05/10 documented as of this encounter
--- OUTSIDE RECORDS SUMMARY | 2024-11-06 15:41 | XMS_ITS | Continuity of Care Document ---
Author Organization [facility] Address [address] [place] [address] [address] [place] [address] Phone Care Team Providers Care Active Directory Engineer Name Role Phone Alexa Harley Unavailable Unavailable Procedures Procedure Date Office/outpatient Visit, Est Eye Exam Established Pt Advance Directives Directive Yes / No Effective Date File Name No Information Encounters Encounter Description Practice Location Reason(s) For Visit Diagnoses Date Provider Providers Copied on Encounter Office/outpat ient Visit, Est [facility], [address] [place] [address] [address], [place], [place], [id number], tel:[phone] [facility] No Information [address] , [address], [place], [place], [facility], [place]. tel:[phone] [facility], [address] [place] [address] [address], [place], [place], [id number], tel:[phone] [facility] No Information Apr-[address] , [address], [place], [place], [facility], [place]. tel:[phone] Family History Family Member Type Diagnosis Age [...]
--- OUTSIDE RECORDS SUMMARY | 2024-11-06 15:41 | XMS_ITS | Clinical Summary ---
Author Organization [facility] [employer] Address [address] [facility] [place] [address] Care Team Providers Care Network Admin Name Role Phone Shahid Powell MD Primary Care Provider + Source Comments [facility],non-owned Affiliates and Associated Physician Practices is amultiple site organization consisting of ambulatory clinics and hospital sitesin [place], [place], [place] and [place]. This disclosure is being madepursuant to the Care Everywhere program and may not contain all information available regarding this patient. 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 Gender Identity Not on file Sexual Orientation [...] 1:21 PM CDT Height 139.7 cm (4' 7) 07/17/2024 1:21 PM CDT Body Mass Index 30.21 07/17/2024 1:21 PM CDT Plan of Treatment Upcoming Encounters Date Type Department Care Team (Late st Contact Info) Description 01/15/2025 2:45 PM CDT Appointment [facility] Health Vascular Services [address] [facility], [address] [place] [address] [place] [address] [address] [place] [address] [address] [place] [address] [address] Calvin Lynne MD [address] [place] [phone] Ronald Rosas MD [address] [place], [place] [id number] [place] [address] [address] [place] [address] [address] Health Maintenance Due Date Last Done Comments BONE DENSITY TESTING 1945 DTAP/TDAP/TD VACCINES (1 - Tdap) 10/14/1962 ZOSTER VACCINE (1 of 2) 10/14/1993 PNEUMOCOCCAL VACCINE 50+ (2 of 2 - PCV) 05/08/2018 05/08/2017 Respiratory Syncytial Virus (RSV) Vaccine Pt: or over 60 yrs (1 - 1-dose 75+ series) 10/14/2018 COVID-19 VACCINE (3 - season) 2024 07/24/2020, 07/04/2020 DEPRESSION SCREENING [...] this topic Medical Devices Implanted Type Area Claim Specialist Device Identifier Shelf Expiration Date Model / Serial / Lot Graft Vasc 4-7mm 40cm Grtx Std Wl Tpr Ln - [id number] Implanted:Qty: 1 on 10/02/2019 by Lucio Singh MD at [facility] Left: [employer] 12/03/2023 [id number] / [id number] / Insurance Advance Directives Documents on File Type Date Recorded 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
--- OUTSIDE RECORDS SUMMARY | 2024-11-06 15:41 | XMS_ITS | Clinical Summary ---
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
--- OUTSIDE RECORDS SUMMARY | 2024-11-06 15:41 | XMS_ITS | Clinical Summary ---
Author Organization [facility] Address [address] [place] [phone] Phone Care Team Providers Care Collections Analyst Name Role Phone Unavailable Primary Care [...] / Low and Medium Risk (1 of 2 - PCV) 10/14/1993 Influenza Vaccine (Season Ended) 2025
--- NOTE | 2024-11-06 15:53 | ED.SOB ---
HPI - SOB/Dyspnea General Chief Complaint: Shortness of Breath/Dyspnea Stated Complaint: sob Time Seen by Provider: 11/06/24 15:13 History of Present Illness HPI Narrative: 79-year-old female with history of chronic hypoxic respiratory failure on oxygen 3 L at home. She also has a history of end-stage renal disease on dialysis Monday, , Monday. She went to dialysis yesterday without any issues but throughout the day started feeling unwell and was nauseous and vomited once. She has also been complaining worsening shortness of breath. Her daughter is present at bedside states that she has had worsening productive cough since yesterday and now short of breath. She was on 3 L nasal cannula at home and saturating around 90%. She was put on 6 L transportation by EMS and she states that she felt better with the higher dose of oxygen. Here she is currently 96% on her normal 3 L. No tachypnea, tachycardia or fever. She does have some coarse breath sounds and she is concerned about a recurrent pneumonia as she has a history of frequent pneumonia infections. Worsening cough and subjective chills at home. No present nausea vomiting, chest pain, headache, vision changes, abdominal pain or back pain. Related Data Home Medications ?Medication ?Instructions ?Recorded ?Confirmed ?Last Taken ?Type vitamin B complex and vitamin C 1 cap PO DAILY 12/04/21 11/06/24 11/06/23 09:00 History no.20-folic acid 1 mg capsule (Triphrocaps) cholecalciferol (vitamin D3) 50 50 mcg PO DAILY 01/11/22 11/06/24 11/06/23 09:00 History mcg (2,000 unit) capsule vitamin E (dl, acetate) 180 mg 180 mg PO DAILY 01/11/22 11/06/24 11/06/23 09:00 History (400 unit) capsule atorvastatin 40 mg tablet 40 mg PO DAILY 10/12/23 11/06/24 11/06/23 09:00 History ferrous sulfate 325 mg (65 mg 325 mg PO DAILY 11/06/24 11/06/24 Unknown History iron) tablet (Feosol) magnesium 250 mg tablet 250 mg PO DAILY 11/06/24 11/06/24 Unknown History melatonin 10 mg tablet 20 mg PO HS 11/06/24 11/06/24 Unknown History zinc 50 mg capsule 50 mg PO DAILY 11/06/24 11/06/24 Unknown History Allergies Allergy/AdvReac Type Severity Reaction Status Date / Time ibuprofen Allergy Unknown Not Verified 11/06/24 15:20 Entered,Abdominal Pain Review of Systems Review of Systems: As reviewed above in HPI [facility] Past Medical History Medical History Type 2 diabetes mellitus with diabetic chronic kidney disease Hypertension Primary localized osteoarthritis of knees, bilateral Pneumonia Depression Hypothyroidism Gout Arthritis Nephrolithiasis Chronic kidney disease Surgical History Surgical History H/O inguinal hernia repair Hx of tonsillectomy Family History Family History Other Diabetes mellitus Heart disease Hypertension Social History Social History Social History: Patient lives with her daughter, grandson daughter's kids and her daughter daughters kids. Patient's did of diabetes in 1985. Patient wishes to be a full code does like her daughter to be her surrogate. She also does have 3 dogs and 2 cats that live with her as well. 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 Mucous membranes moist. NECK: Supple. CHEST: Coarse asymmetric breath sounds with some scattered asymmetric wheezes but no tachypnea or tachycardia. No decreased air entry HEART: [Regular rate and rhythm]. No murmur heard. [Normal peripheral pulses.] ABDOMEN: [Soft, nondistended], [nontender], [No rigidity or guarding] EXTREMITIES: Left upper extremity AV graft, palpable thrill, mild extremity edema SKIN: Warm, dry, no rash. NEURO: [No focal deficits]. Alert and oriented [x3.] PSYCH: [Normal mood and affect.] Course Vital Signs Vital signs: Vital Signs Temperature 36.7 C 11/06/24 15:09 Pulse Rate 88 11/06/24 15:09 Respiratory Rate 20 11/06/24 15:09 Blood Pressure 155/77 H 11/06/24 15:09 Pulse Oximetry 97 11/06/24 15:09 Oxygen Delivery Nasal Cannula 11/06/24 15:09 Oxygen Flow Rate 3 11/06/24 15:09 Temperature 36.2 C L 11/06/24 21:04 Pulse Rate 84 11/06/24 21:04 Respiratory Rate 22 H 11/06/24 21:04 Blood Pressure 132/62 11/06/24 21:04 Pulse Oximetry 98 11/06/24 21:04 Oxygen Delivery Nasal Cannula 11/06/24 16:25 Oxygen Flow Rate 3 11/06/24 16:25 MDM - SOB/Dyspnea MDM Narrative Medical decision making narrative: 79-year-old female with history of chronic hypoxic respiratory failure on oxygen 3 L at home. She also has a history of end-stage renal disease on dialysis Monday, , Monday. She went to dialysis yesterday without any issues but throughout the day started feeling unwell and was nauseous and vomited once. She has also been complaining worsening shortness of breath. Her daughter is present at bedside states that she has had worsening productive cough since yesterday and now short of breath. She was on 3 L nasal cannula at home and saturating around 90%. She was put on 6 L transportation by EMS and she states that she felt better with the higher dose of oxygen. Here she is currently 96% on her normal 3 L. No tachypnea, tachycardia or fever. She does have some coarse breath sounds and she is concerned about a recurrent pneumonia as she has a history of frequent pneumonia infections. Worsening cough and subjective chills at home. No present nausea vomiting, chest pain, headache, vision changes, abdominal pain or back pain. Patient has normal vital signs was stable hypertension no other concerns. She does have very coarse breath sounds bilaterally with some asymmetric wheezing suspicious for potential infiltrates or pneumonia. She is currently on her baseline level of oxygen but states that she felt much better when she was on a higher 6 L. CBC, CMP, chest x-ray and EKG. Suspicion for viral versus bacterial pneumonia, bronchitis, pneumothorax. Low suspicion thromboembolic disease or fluid overload as she had 2 L removed from dialysis yesterday. Patient's workup shows a leukocytosis of 10.6, hemoglobin of 10.1 which is around her baseline. Platelets are 113 and chronic thrombocytopenia per review. Electrolytes shows some BUN and creatinine elevations consistent with her end-stage renal disease, slight hyperkalemia 5.2, glucose 141, LFTs mildly elevated. Chest x-ray shows re-demonstration of significant cardiomegaly and pulmonary vascular congestion with multifocal pneumonia. EKG shows sinus rhythm with a first-degree block and right bundle-branch block chronic from prior. Patient started on community-acquired coverage for pneumonia with Rocephin and azithromycin blood cultures are drawn. She was given 80 mg of IV Lasix to help redistribute her volume even though she is on dialysis she still makes urine. Discussed the case with the hospitalist service with my plan for aggressive diuresis for her volume overload and pneumonia which is likely the source of her hypoxia requiring additional oxygen. Consult to Nephrology was placed and patient was admitted to a telemetry monitored bed at this time. Medical Records Attestation: I reviewed the patient's medical records. Lab Data Attestation: I reviewed the patient's lab results. 11/06/24 16:05 11/06/24 16:05 Labs: Lab Results 11/06/24 Range/Units 16:05 WBC 10.6 H (4.5-10.0) K/mm3 RBC 3.21 L (4.2-5.4) M/mm3 Hgb 10.1 L (12.0-15.0) g/dL Hct 33.7 L (37.0-47.0) % MCV 105.0 H (80-100) fl MCH 31.5 (26-34) pg MCHC 30.0 L (32-36) g/dl RDW 15.6 H (11.5-14.5) % Plt Count 113 L D (150-375) k/mm3 MPV 10.3 (7.4-10.4) fl Immature Gran % (Auto) Not Reportable Neut % (Auto) Not Reportable Lymph % (Auto) Not Reportable [place] % (Auto) Not Reportable Eos % (Auto) Not Reportable Baso % (Auto) Not Reportable Lymph # (Auto) Not Reportable [place] # (Auto) Not Reportable Eos # (Auto) Not Reportable Baso # (Auto) Not Reportable Abs Immat Gran (auto) Not Reportable Absolute Neuts (auto) Not Reportable Absolute Nucleated RBC Not Reportable Total Counted 100 Neutrophils % (Manual) 86 H (46-73) % Band Neutrophils % 4 (0-6) % Lymphocytes % (Manual) 2.0 L (18-44) % Monocytes % (Manual) 8 (3-9) % Nucleated RBC % Not Reportable Abs Neuts (Manual) 9.54 H (1.3-6.7) K/mm3 Abs Lymphs (Manual) 0.21 L (1.1-4.5) K/mm3 Abs Monocytes (Manual) 0.84 (0.1-0.90) K/mm3 Nucleated RBCs 1 % Platelet Estimate Decreased (Adequate) Hypochromasia 1+ Anisocytosis 2+ Schistocytes None seen Sodium 136 L (137-145) mmol/L Potassium 5.2 H (3.4-5.0) mmol/L Chloride 96 L (98-107) mmol/L Carbon Dioxide 28 (22-30) mmol/L Anion Gap 12 (4-12) mmol/L BUN 51 H D (7-17) mg/dL Creatinine 5.53 H (0.7-1.0) mg/dL Estim Creat Clear Calc Not Reportable Estimated GFR 7 L (59 - ) Glucose 141 H (65-110) mg/dL Calcium 9.4 (8.4-10.2) mg/dL Total Bilirubin 0.7 (0.2-1.3) mg/dL AST 44 H (14-36) U/L ALT 22 (6-35) U/L Alkaline Phosphatase 182 H (38-126) U/L Total Protein 7.9 (6.3-8.2) g/dL Albumin 4.0 (3.5-5.1) g/dL Imaging Data Attestation: I personally reviewed and interpreted this imaging study as follows: My impression: Impressions Chest X-Ray 11/06/24 16:11 IMPRESSION: Redemonstration of significant cardiomegaly with moderate pulmonary vascular congestion and multifocal pneumonia suspected. Critical Care Time Critical Care Time Critical Care Time: Yes Total Critical Care Time: 40 Discharge Plan Discharge Clinical Impression: Acute and chronic respiratory failure with hypoxia, Multifocal pneumonia, Cardiac volume overload Patient Disposition: Still a Patient Condition: Stable
[2024-11-06 16:09] LABS: Hematocrit 33.7 % (37.0-47.0); Hemoglobin 10.1 g/dL (12.0-15.0); Mean Corpuscular HGB Conc 30.0 g/dl (32-36); Mean Corpuscular Hemoglobin 31.5 pg (26-34); Mean Corpuscular Volume 105.0 fl (80-100); Platelet Count Result 113 k/mm3 (150-375); Red Blood Count 3.21 M/mm3 (4.2-5.4); White Blood Count 10.6 K/mm3 (4.5-10.0)
[2024-11-06 16:24] LABS: Alanine Aminotransferase 22 U/L (6-35); Albumin Level 4.0 g/dL (3.5-5.1); Alkaline Phosphatase 182 U/L (38-126); Anion Gap 12 mmol/L (4-12); Aspartate Amino Transferase 44 U/L (14-36); Bilirubin,Total 0.7 mg/dL (0.2-1.3); Blood Urea Nitrogen 51 mg/dL (7-17); Calcium 9.4 mg/dL (8.4-10.2); Carbon Dioxide 28 mmol/L (22-30); Chloride 96 mmol/L (98-107); Estimated Glomerular Filt Rate 7; Glucose 141 mg/dL (65-110); Potassium 5.2 mmol/L (3.4-5.0); Sodium 136 mmol/L (137-145); Total Protein 7.9 g/dL (6.3-8.2)
[2024-11-06 16:59] LABS: Band Neutrophils Percent 4 % (0-6); Lymphocytes Absolute Manual 0.21 K/mm3 (1.1-4.5); Lymphocytes Percent Manual 2.0 % (18-44); Monocytes Absolute Manual 0.84 K/mm3 (0.1-0.90); Monocytes Percent Manual 8 % (3-9); Neutrophils Absolute Manual 9.54 K/mm3 (1.3-6.7); Neutrophils Percent Manual 86 % (46-73); Schistocytes None Seen; Total Cells Counted 100
[2024-11-06 17:00] LABS: Anisocytosis 2+; Hypochromasia 1+
[2024-11-06] MEDS: FUROSEMIDE INJ 40 MG/4 ML VIAL 80 MG IV PUSH (17:29)
[2024-11-06] MEDS: AZITHROMYCIN 500 MG/NS 250 ML 500 MG/250 ML BAG 250 MG IVPB (18:08)
--- NOTE | 2024-11-06 18:22 | PM.IMHP ---
H&P: HPI History of Present Illness Date/Time: 11/06/24 18:22 Chief Complaint: Shortness of Breath Narrative: 79 y/o F with PMH of hypertension, diabetes, ESRD on HD, hypothyroidism, gout, and depression presents here with shortness of breath. the patient presents here from home via EMS on 11/06 for further evaluation of shortness of breath. HPI obtained largely through chart review as the patient is currently a poor historian and unable to provide details about the timeline of her symptomatology. Daughter was present at the bedside in the emergency department and provided the following report. She reports that she has had a worsening productive cough and shortness of breath starting yesterday (11/05). she wears 3 L nasal cannula at baseline and was 90% at home On her normal O2. The patient reported a worsening cough and subjective chills. She denied nausea, vomiting, chest pain, headache, vision changes, abdominal pain, or back pain to the emergency room to provider. Daughter also reported that the patient had dialysis yesterday and was feeling unwell at her treatment and had nausea and vomiting x1. The patient is currently reporting fatigue. Initial VS at presentation: 90? F, HR 88, RR 20, 155/77, and 97% on 3L nasal cannula ED workup showed: WBC 10.6, hemoglobin 10.1, sodium 136, potassium 5.2, creatinine 5.53 and GFR 7, glucose 141. CXR showed redemonstration of significant cardiomegaly with moderate pulmonary vascular congestion and multifocal pneumonia suspected. Review of Systems Review of Systems: All systems reviewed & are unremarkable except as noted in HPI and below ( somewhat limited due to patient condition) [facility] Past Medical History Medical History Type 2 diabetes mellitus with diabetic chronic kidney disease Hypertension Primary localized osteoarthritis of knees, bilateral Pneumonia Depression Hypothyroidism Gout Arthritis Nephrolithiasis Chronic kidney disease Surgical History Surgical History H/O inguinal hernia repair Hx of tonsillectomy Family History Family History Other Diabetes mellitus Heart disease Hypertension Social History Social History Social History: Patient lives with her daughter, grandson daughter's kids and her daughter daughters kids. Patient's did of diabetes in 1985. Patient wishes to be a full code does like her daughter to be her surrogate. She also does have 3 dogs and 2 cats that live with her as well. 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 Gender identity (if verbalized by the patient): Female Sexual Orientation (if Verbalized by the Patient): Straight or Heterosexual Spiritual care concerns: No Agree to blood products: Yes Meds Home Medications and Allergies Home Medications ?Medication ?Instructions ?Recorded ?Confirmed ?Type vitamin B complex and vitamin C 1 cap PO DAILY 12/04/21 11/06/24 History no.20-folic acid 1 mg capsule (Triphrocaps) cholecalciferol (vitamin D3) 50 50 mcg PO DAILY 01/11/22 11/06/24 History mcg (2,000 unit) capsule vitamin E (dl, acetate) 180 mg 180 mg PO DAILY 01/11/22 11/06/24 History (400 unit) capsule atorvastatin 40 mg tablet 40 mg PO DAILY 10/12/23 11/06/24 History calcium acetate(phosphat bind) 667 667 mg PO TIDWM #150 caps 05/06/24 11/06/24 Rx mg capsule tramadol 50 mg tablet 100 mg (2 x 50 mg) PO BID PRN Pain 07/02/24 11/06/24 Rx (Scale Score 4-6) #120 tabs levothyroxine 112 mcg tablet See Rx Instructions .Route 07/29/24 11/06/24 Rx .COMPLEX #90 tabs sertraline 50 mg tablet See Rx Instructions .Route 09/25/24 11/06/24 Rx .COMPLEX #90 tabs linagliptin 5 mg tablet (Tradjenta) See Rx Instructions .Route 10/01/24 11/06/24 Rx .COMPLEX #90 tabs mirtazapine 30 mg tablet See Rx Instructions .Route 10/28/24 11/06/24 Rx .COMPLEX #90 tabs ferrous sulfate 325 mg (65 mg 325 mg PO DAILY 11/06/24 11/06/24 History iron) tablet (Feosol) magnesium 250 mg tablet 250 mg PO DAILY 11/06/24 11/06/24 History melatonin 10 mg tablet 20 mg PO HS 11/06/24 11/06/24 History zinc 50 mg capsule 50 mg PO DAILY 11/06/24 11/06/24 History Allergies Allergy/AdvReac Type Severity Reaction Status Date / Time ibuprofen Allergy Unknown Not Verified 11/06/24 15:20 Entered,Abdominal Pain Vital Signs Vital Signs - 24 hr 11/06/24 15:09 11/06/24 15:18 11/06/24 15:19 Temperature 98.0 F Pulse Rate 88 88 Respiratory Rate 20 Blood Pressure 155/77 H Pulse Oximetry 97 96 Oxygen Delivery Nasal Cannula Nasal Cannula Oxygen Flow Rate 3 3 11/06/24 16:21 11/06/24 16:25 11/06/24 17:29 Temperature Pulse Rate 85 80 Respiratory Rate 12 22 H Blood Pressure 151/69 H 128/74 Pulse Oximetry 93 92 97 Oxygen Delivery Nasal Cannula Oxygen Flow Rate 3 Exam Const: General: comfortable and no acute distress Other: , female, elderly, acutely ill-appearing on top of chronically ill appearance HENMT: Face/Nose/Sinus: Normal nares present Mouth: Yes moist mucous membranes Eyes: General: appearance normal, both eyes and all related structures Sclera: sclerae normal Pupils: Equal, round and reactive pupils present EOM: EOMs intact bilaterally Resp: Effort & Inspection: normal respiratory effort Other: nasal cannula place, tolerating well. Course lung sounds/crackles heard in all lung cmgregor. No overt wheezing. Cardio: Rate: regular rate Rhythm: regular rhythm Other: +Murmur GI: Other: Abdomen soft, nondistended, nontender. Normoactive bowel sounds in all quadrants. Skin: General skin exam: normal color and no rashes or lesions noted Wounds: no wounds Neuro: Speech: normal speech Motor exam (neuro): 5/5 motor strength present throughout Sensory Exam: normal sensation Other: A&O x3 with poor situational recall, somnolent but awakens to voice Extrem: Other: dialysis fistula to RUE (bicep) +thrill and bruit. no peripheral edema. Psych: Mental Status: mental status grossly normal Affect: normal affect Other: Good insight and judgment, pleasant H&P: Results Labs Labs: Short CBC 11/06/24 Range/Units 16:05 WBC 10.6 H (4.5-10.0) K/mm3 Hgb 10.1 L (12.0-15.0) g/dL Hct 33.7 L (37.0-47.0) % Plt Count 113 L D (150-375) k/mm3 BMP 11/06/24 16:05 Sodium 136 L Potassium 5.2 H Chloride 96 L Carbon Dioxide 28 BUN 51 H D Creatinine 5.53 H Glucose 141 H Calcium 9.4 Liver Function 11/06/24 Range/Units 16:05 Total Bilirubin 0.7 (0.2-1.3) mg/dL AST 44 H (14-36) U/L ALT 22 (6-35) U/L Alkaline Phosphatase 182 H (38-126) U/L Albumin 4.0 (3.5-5.1) g/dL Assessment and Plan Assessment and plan (1) Multifocal pneumonia: Code(s): J18.9 - Pneumonia, unspecified organism Status: Acute Assessment and Plan: - CXR: Redemonstration of significant cardiomegaly with moderate pulmonary vascular congestion and multifocal pneumonia suspected. - did not meet SIRS criteria - started on ceftriaxone and azithromycin on 11/06 - check MRSA PCR and sputum culture - patient on her baseline supplemental O2 requirement - 3L NC - supportive care: Tessalon Perles p.r.n., Mucinex [facility], DuoNebs p.r.n., Tylenol p.r.n. (2) End stage renal disease: Code(s): N18.6 - End stage renal disease Status: Chronic Assessment and Plan: - creatinine 5.53, BUN 51, GFR 7 - hx of ESRD on HD (//Mon) - nephrology consulted for inpatient dialysis - trend renal function - trend electrolytes, correct as needed (3) Type 2 diabetes mellitus with diabetic chronic kidney disease: Qualifiers: Chronic kidney disease stage: on chronic dialysis Diabetes mellitus termite exterminator helper insulin use: without termite exterminator helper use Qualified Code(s): E11.22 - Type 2 diabetes mellitus with diabetic chronic kidney disease; N18.6 - End stage renal disease; Z99.2 - Dependence on renal dialysis Code(s): E11.22 - Type 2 diabetes mellitus with diabetic chronic kidney disease Status: Chronic Assessment and Plan: - hypoglycemia protocol - POC blood glucose ACHS - home medication: Tradjenta - correct regimen ordered - low dose TIDWM, based off TDD - A1C 5.2% in 2023, update (4) Hypertension: Qualifiers: Hypertension type: secondary to other renal disorders Qualified Code(s): I15.1 - Hypertension secondary to other renal disorders Code(s): I10 - Essential (primary) hypertension Status: Chronic Assessment and Plan: - chronic, currently 128/74 - no antihypertensive medications listed on med rec - monitor Plan Diet: Renal GI Prophylaxis: not currently indicated DVT Prophylaxis: SCDs IV fluids: none Lines/Tubes: peripheral IV Code Status: full code Quality VTE Prophylaxis VTE prophylaxis: mechanical ordered Hospitalist MIPS Advance Care Plan I have confirmed that the patient's Advanced Care Plan is present, code status is documented, or surrogate decision maker is listed in patient medical record.: Yes Medication Reconciliation I have utilized all available resources to obtain, update and review the patients current medications (includes all prescriptions, OTC, herbals, cannabis, and nutritional supplements).: Yes
--- NOTE | 2024-11-06 20:47 | ADMGEN ---
This patient, Gisele Centeno, was admitted to [facility] Room 303-01. Patient/family oriented to hospital policies and general routines including ID bracelet, bed and alarms, visiting hours, pain management, procedures, bathroom and other care routines, personal items, smoking policy, room service/diet, and visiting hours. Information on how to activate the Rapid Response Team has been discussed. Patient/Family are encouraged to report perceived risks to care and to ask questions if they do not understand what they are told or what they should do.
[2024-11-06] MEDS: guaiFENesin 12 HR 600 MG TABCR PO (20:50)
--- NOTE | 2024-11-06 22:51 | ECG_ITS ---
Test Date: 2024-11-06 23:04:16 Measurements Intervals [place] Rate: 89 P: -75 FL: 258 QRS: 45 QRSD: 178 T: -19 QT: 447 QTc: 546 Interpretive Statements SINUS RHYTHM WITH FIRST DEGREE AV BLOCK RIGHT BUNDLE BRANCH BLOCK [120+ ms QRS DURATION, UPRIGHT V1, 40+ ms S IN I/aVL/V4/V5/V6] Compared to ECG 11/06/2024 15:17:10 No significant changes Electronically Signed On 11-07-2024 16:39:03 CDT by Dada Christine
[2024-11-07] VITALS (28 sets, daily range): BP systolic 90–124; BP diastolic 43–59; PULSE 65–90; RESP 17–24; TEMP 36.2–38.2; O2SAT 84–100
[2024-11-07] MEDS: LEVOTHYROXINE SODIUM 112 MCG TABLET PO (05:12)
[2024-11-07 05:46] LABS: Hematocrit 33.4 % (37.0-47.0); Hemoglobin 9.7 g/dL (12.0-15.0); Immature Granulocyte Percent A 0.7 % (0-0.5); Lymphocytes Absolute Auto 0.70 K/mm3 (0.9-3.2); Mean Corpuscular HGB Conc 29.0 g/dl (32-36); Mean Corpuscular Hemoglobin 30.9 pg (26-34); Mean Corpuscular Volume 106.4 fl (80-100); Nucleated Red Blood Cells Absolute Auto 0.000 K/mm3 (0.0-0.012); Nucleated Red Blood Cells Perc 0.0 % (0.0-0.2); Platelet Count Result 101 k/mm3 (150-375); Red Blood Count 3.14 M/mm3 (4.2-5.4); White Blood Count 12.3 K/mm3 (4.5-10.0)
[2024-11-07 06:01] LABS: Alanine Aminotransferase 17 U/L (6-35); Albumin Level 3.5 g/dL (3.5-5.1); Alkaline Phosphatase 144 U/L (38-126); Anion Gap 10 mmol/L (4-12); Aspartate Amino Transferase 38 U/L (14-36); Bilirubin,Total 0.7 mg/dL (0.2-1.3); Blood Urea Nitrogen 57 mg/dL (7-17); Calcium 9.1 mg/dL (8.4-10.2); Carbon Dioxide 28 mmol/L (22-30); Chloride 98 mmol/L (98-107); Estimated Glomerular Filt Rate 7; Glucose 88 mg/dL (65-110); Magnesium 2.8 mg/dL (1.6-2.3); Potassium 5.5 mmol/L (3.4-5.0); Sodium 136 mmol/L (137-145); Total Protein 7.1 g/dL (6.3-8.2)
[2024-11-07 06:06] LABS: Hemoglobin A1C 5.3 % (<5.7)
[2024-11-07 06:22] LABS: MRSA (PCR) NOT DETECTED (NOT DETECTE)
[2024-11-07 06:41] LABS: Hypochromasia 1+; Macrocytosis 1+ (NORMAL); Schistocytes None Seen
[2024-11-07 06:46] LABS: Hepatitis B Surface Antigen Negative (Negative)
[2024-11-07 08:39] LABS: HBSAB RETEST 1 9.20 S/C; HBSAB RETEST 2 9.20 S/C
[2024-11-07 08:40] LABS: Hepatitis B Surface Anti Res Indeterminate
[2024-11-07] MEDS: CHOLECALCIFEROL (VITAMIN D3) 25 MCG (1,000 UNITS) TABLET 50 MCG PO (08:50)
[2024-11-07] MEDS: ZINC SULFATE 220 MG CAPSULE PO (08:51)
[2024-11-07] MEDS: MAGNESIUM OXIDE 200 MG TABLET PO (08:51)
[2024-11-07] MEDS: VITAMIN B CMPLX/VIT C/FOLIC AC 1 CAPSULE 1 CAP PO (08:51)
[2024-11-07] MEDS: SERTRALINE HCL 50 MG TABLET PO (08:51)
[2024-11-07] MEDS: ATORVASTATIN 40 MG TABLET PO (08:51)
[2024-11-07] MEDS: guaiFENesin 12 HR 600 MG TABCR PO ×2 (08:51→22:51)
[2024-11-07] MEDS: CALCIUM ACETATE 667 MG TABLET PO ×2 (08:51→17:29)
[2024-11-07] MEDS: FERROUS SULFATE 325 MG TABLET DR PO (08:51)
--- NOTE | 2024-11-07 10:25 | P.CONNP_ITS ---
Assessment and Plan Assessment and plan (1) End stage renal disease: Code(s): N18.6 - End stage renal disease Status: Chronic Assessment and Plan: * HD today * continue T/T/S dialysis schedule while hospitalized * follow electrolytes, volume status, and clearance (2) Acute on chronic hypoxic respiratory failure: Code(s): J96.21 - Acute and chronic respiratory failure with hypoxia Status: Acute Assessment and Plan: * as noted on presentation * remains on her chronic 3L supplemental oxygen at baseline * multifactorial etiology: * chronic respiratory failure * pneumonia * pulmonary vascular congestion * volume overload * pulmonary HTN * continue supportive therapy as outlined (3) Multifocal pneumonia: Code(s): J18.9 - Pneumonia, unspecified organism Status: Acute Assessment and Plan: * as noted by admission CXR: * Redemonstration of significant cardiomegaly with moderate pulmonary vascular congestion and multifocal pneumonia suspected * follow culture data * on antibiotic therapy * PRN antitussives and nebulizer treatments (4) Anemia: Code(s): D64.9 - Anemia, unspecified Status: Chronic Assessment and Plan: * due to ESRD and likely worsened by acute infection * Epogen with HD * follow H/H (5) Hypertension: Qualifiers: Hypertension type: secondary to other renal disorders Qualified Code(s): I15.1 - Hypertension secondary to other renal disorders Code(s): I10 - Essential (primary) hypertension Status: Chronic Assessment and Plan: * reasonable control * follow trend of hemodynamics (6) Type 2 diabetes mellitus with diabetic polyneuropathy: Qualifiers: Diabetes mellitus halfway insulin use: without terminologist use Q ualified Code(s): E11.42 - Type 2 diabetes mellitus with diabetic polyneuropathy Code(s): E11.42 - Type 2 diabetes mellitus with diabetic polyneuropathy Status: Chronic Assessment and Plan: * follow accu-cheks * glycemic control per hospitalists I will continue to follow the patient with you while she remains hospitalized and make further recommendations as deemed necessary. Thank you for allowing me to participate in the care of this patient. L History of Present Illness Reason for Consult Consult date: 11/07/24 Reason for consult: end stage renal disease Chief Complaint Chief complaint: pneumonia,fluid overload,end stage renal disease o History of Present Illness Narrative: The patient is an 79-year-old female with extensive past past medical history as outlined below who presented to [facility] due to complaints of shortness of breath. It is difficult to get a full and complete timeline of events that occurred that led to her presentation to the emergency room so great deal of the information I obtained is from review of the electronic medical record as well as discussion with the physician/nurses involved in the patient's care. The parent has apparently been having a significant cough that has been productive for last few days if not longer that seems to have worsened if not resulted in her complaints of shortness of breath that seemed to be more pronounced a couple of days ago. A cough apparently continued to progressively get worse and apparently was associated with subjective chills. The patient normally wears 3 L of oxygen by nasal cannula at baseline and according to the patient's family in the emergency room, her oxygen saturations were a tad lower than normal with her home oxygen at around 90%. She gives no other history with regard to headache, blurry vision, abdominal pain, lightheadedness, palpitations, or chest discomfort. On her last outpatient dialysis treatment on 11/05, she did apparently have issues and problems with nausea with resultant emesis x 1. Her only other complaint was that of profound fatigue. Given these constellation of symptoms as mentioned, she presented to the ER for further assessment. Upon presentation to the ER, she was noted be afebrile and otherwise hemodynamically stable with saturations of 97% on her baseline 3 L of oxygen by nasal cannula. Routine testing demonstrated a white blood cell count of 10.6, hemoglobin 10.1, and a chemistry panel it was consistent with her known history of end-stage renal disease without any critical electrolyte abnormalities. Her chest x-ray showed redemonstration of significant cardiomegaly with moderate pulmonary vascular congestion and multi focal pneumonia suspected. Given these findings as well as her symptoms on presentation, appropriate cultures were obtained and she was started on IV antibiotics. She was subsequently admitted to the hospital for further evaluation and therapy. Renal consultation was requested due to her end-stage renal disease. The patient normally dialyzes on a Monday, , Monday schedule at [facility] under the care of Dr. Patel Freeman. From a dialysis perspective, she is usually compliant with her treatments and has relative stability in her monthly labs with regard to her ESRD parameters and usually does not have any issues or problems with significant fluid overload. However, it is well known that she does not tolerate aggressive fluid removal/ultrafiltration due to severe cramping. She does have issues with chronic lower extremity edema but this has been an ongoing/chronic issue. She received dialysis the day before yesterday (on 11/05) at her outpatient clinic and is due for dialysis today Currently, at the time my visit, she is in no apparent distress and tolerating dialysis (seen on HD at 10:20AM). Review of Systems 2 Review of Systems: As per HPI. [facility] Past Medical History Medical History Type 2 diabetes mellitus with diabetic chronic kidney disease Hypertension Primary localized osteoarthritis of knees, bilateral Pneumonia Depression Hypothyroidism Gout Arthritis Nephrolithiasis Chronic kidney disease Surgical History Surgical History H/O inguinal hernia repair Hx of tonsillectomy Family History Family History Other Diabetes mellitus Heart disease Hypertension Social History Social History Social History: Patient lives with her daughter, grandson daughter's kids and her daughter daughters kids. Patient's did of diabetes in 1985. Patient wishes to be a full code does like her daughter to be her surrogate. She also does have 3 dogs and 2 cats that live with her as well. 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 Gender identity (if verbalized by the patient): Female Sexual Orientation (if Verbalized by the Patient): Straight or Heterosexual Spiritual care concerns: No Agree to blood products: Yes Meds Home Medications and Allergies Home Medications ?Medication ?Instructions ?Recorded ?Confirmed ?Type vitamin B complex and vitamin C 1 cap PO DAILY 12/04/21 11/06/24 History no.20-folic acid 1 mg capsule (Triphrocaps) cholecalciferol (vitamin D3) 50 50 mcg PO DAILY 01/11/22 11/06/24 History mcg (2,000 unit) capsule vitamin E (dl, acetate) 180 mg 180 mg PO DAILY 01/11/22 11/06/24 History (400 unit) capsule atorvastatin 40 mg tablet 40 mg PO DAILY 10/12/23 11/06/24 History calcium acetate(phosphat bind) 667 667 mg PO TIDWM #150 caps 05/06/24 11/06/24 Rx mg capsule tramadol 50 mg tablet 100 mg (2 x 50 mg) PO BID PRN Pain 07/02/24 11/06/24 Rx (Scale Score 4-6) #120 tabs levothyroxine 112 mcg tablet See Rx Instructions .Route 07/29/24 11/06/24 Rx .COMPLEX #90 tabs sertraline 50 mg tablet See Rx Instructions .Route 09/25/24 11/06/24 Rx .COMPLEX #90 tabs linagliptin 5 mg tablet (Tradjenta) See Rx Instructions .Route 10/01/24 11/06/24 Rx .COMPLEX #90 tabs mirtazapine 30 mg tablet See Rx Instructions .Route 10/28/24 11/06/24 Rx .COMPLEX #90 tabs ferrous sulfate 325 mg (65 mg 325 mg PO DAILY 11/06/24 11/06/24 History iron) tablet (Feosol) magnesium 250 mg tablet 250 mg PO DAILY 11/06/24 11/06/24 History melatonin 10 mg tablet 20 mg PO HS 11/06/24 11/06/24 History zinc 50 mg capsule 50 mg PO DAILY 11/06/24 11/06/24 History Allergies Allergy/AdvReac Type Severity Reaction Status Date / Time ibuprofen Allergy Unknown Not Verified 11/06/24 15:20 Entered,Abdominal Pain Vital Signs Vital Signs Temp Pulse Resp BP Pulse Ox O2 Del Method O2 Flow Rate 11/07/24 10:15 79 110/54 L 11/07/24 10:00 82 117/54 L 11/07/24 09:45 81 122/57 L 11/07/24 09:33 78 113/53 L 11/07/24 09:33 3 11/07/24 09:18 95 11/07/24 09:16 98.2 F 80 24 H 124/56 L 84 L 11/07/24 08:00 75 11/07/24 08:00 95 Nasal Cannula 3 11/07/24 06:00 97.3 F L 87 22 H 120/59 L 93 11/07/24 04:00 78 11/07/24 00:00 82 11/06/24 23:42 84 22 H 97 Nasal Cannula 2 11/06/24 23:00 97 Nasal Cannula 3 11/06/24 21:04 97.1 F L 84 22 H 132/62 98 11/06/24 18:52 88 20 105/62 94 11/06/24 17:29 80 22 H 128/74 97 Exam 2 Narrative: GENERAL APPEARANCE: elderly and somewhat chronically ill-appearing female in no acute distress HEENT: normocephalic, atraumatic, normal conjunctiva and sclera, nares patient NECK: no lymphadenopathy, thyromegaly, or JVD MOUTH: normal lips, teeth, and gums CARDIOVASCULAR: RRR, normal S1 and S2, no rub RESPIRATORY: coarse breath sounds with associated bibasilar cracles ABDOMEN: soft, nontender, nondistended, positive bowel sounds present EXTREMITIES: no evidence of cyanosis, clubbing; chronic edema changes NEUROLOGICAL: alert and oriented x 3; CN II - XII intact bilaterally; no focal deficits noted Results Lab Results 11/07/24 05:28 11/07/24 05:28 Lab results: Most recent lab results Calcium 9.1 mg/dL (8.4-10.2) 11/07/24 05:28 Phosphorus 5.7 mg/dL (2.5-4.5) H 11/07/24 05:28 Magnesium 2.8 mg/dL (1.6-2.3) H 11/07/24 05:28
[2024-11-07] MEDS: EPOETIN ALFA-EPBX 4,000 UNITS/ML VIAL 4000 UNITS IV PUSH (11:52)
--- NOTE | 2024-11-07 15:03 | P.PNIM_ITS ---
Progress Note: A&P Assessment and Plan (1) Multifocal pneumonia: Code(s): J18.9 - Pneumonia, unspecified organism Status: Acute Assessment and Plan: - CXR: Redemonstration of significant cardiomegaly with moderate pulmonary vascular congestion and multifocal pneumonia suspected. - did not meet SIRS criteria - started on ceftriaxone and azithromycin on 11/06 - check MRSA PCR and sputum culture - patient on her baseline supplemental O2 requirement - 3L NC- try tpo titrate down as she is at 98% and still on 3 l - supportive care: Tessalon Perles p.r.n., Mucinex liz, DuoNebs p.r.n., Tylenol p.r.n. (2) End stage renal disease: Code(s): N18.6 - End stage renal disease Status: Chronic Assessment and Plan: - creatinine 5.53, BUN 51, GFR 7 - hx of ESRD on HD (//Mon) - nephrology consulted for inpatient dialysis - trend renal function - trend electrolytes, correct as needed (3) Type 2 diabetes mellitus with diabetic chronic kidney disease: Qualifiers: Diabetes mellitus senior care insulin use: without senior care use Chronic kidney disease stage: on chronic dialysis Qualified Code(s): E11.22 - Type 2 diabetes mellitus with diabetic chronic kidney disease; N18.6 - End stage renal disease; Z99.2 - Dependence on renal dialysis Code(s): E11.22 - Type 2 diabetes mellitus with diabetic chronic kidney disease Status: Chronic Assessment and Plan: - hypoglycemia protocol - POC blood glucose ACHS - home medication: Tradjenta - correct regimen ordered - low dose TIDWM, based off TDD - A1C 5.2% in 2023, update (4) Hypertension: Qualifiers: Hypertension type: secondary to other renal disorders Qualified Code(s): I15.1 - Hypertension secondary to other renal disorders Code(s): I10 - Essential (primary) hypertension Status: Chronic Assessment and Plan: - chronic, currently 128/74 - no antihypertensive medications listed on med rec - monitor Plan Diet: Renal GI Prophylaxis: not currently indicated DVT Prophylaxis: SCDs IV fluids: none Lines/Tubes: peripheral IV Code Status: full code Time Spent With Patient Time with patient: 25 - 35 minutes Subjective Date/time seen: 11/07/24 15:03 Interval history: 79 y/o F with PMH of hypertension, diabetes, ESRD on HD, hypothyroidism, gout, and depression presents here with shortness of breath. the patient presents here from home via EMS on 11/06 for further evaluation of shortness of breath. HPI obtained largely through chart review as the patient is currently a poor historian and unable to provide details about the timeline of her symptomatology. Daughter was present at the bedside in the emergency department and provided the following report. She reports that she has had a worsening productive cough and shortness of breath starting yesterday (11/05). she wears 3 L nasal cannula at baseline and was 90% at home On her normal O2. The patient reported a worsening cough and subjective chills. She denied nausea, vomiting, chest pain, headache, vision changes, abdominal pain, or back pain to the emergency room to provider. Daughter also reported that the patient had dialysis yesterday and was feeling unwell at her treatment and had nausea and vomiting x1. The patient is currently reporting fatigue. Initial VS at presentation: 90? F, HR 88, RR 20, 155/77, and 97% on 3L nasal cannula ED workup showed: WBC 10.6, hemoglobin 10.1, sodium 136, potassium 5.2, creatinine 5.53 and GFR 7, glucose 141. CXR showed redemonstration of significant cardiomegaly with moderate pulmonary vascular congestion and multifocal pneumonia suspected. Pt seen and examined. She is sitting in bed, reports sob, wearing o2 at 3l her baseline. She saw pulm few month ago-07/10/24. plan was try to titrate oxygen down. Portex acapella was advised. she reports having multiple pnemonia episodes in the last year- close to 5-6. she is 98% and still on 3 l now. she denies chest pain, n/v/d. Review of Systems Review of Systems: All systems reviewed & are unremarkable except as noted in HPI and below ( somewhat limited due to patient condition) Exam Narrative: bibasilar crackles in all lung mcgregor. No wheezing. Ill appearing. dialysis fistula to RUE (bicep) +thrill and bruit. no peripheral edema. Const: General: comfortable and no acute distress Other: , female, elderly, acutely ill-appearing on top of chronically ill appearance HENMT: Face/Nose/Sinus: Normal nares present Mouth: Yes moist mucous membranes Eyes: General: appearance normal, both eyes and all related structures Sclera: sclerae normal Pupils: Equal, round and reactive pupils present EOM: EOMs intact bilaterally Resp: Effort & Inspection: normal respiratory effort Other: nasal cannula place, tolerating well. Cardio: Rate: regular rate Rhythm: regular rhythm Other: +Murmur GI: Other: Abdomen soft, nondistended, nontender. Normoactive bowel sounds in all quadrants. Skin: General skin exam: normal color and no rashes or lesions noted Wounds: no wounds Neuro: Cranial nerves: Yes Equal, round and reactive pupils present Speech: normal speech Motor exam (neuro): 5/5 motor strength present throughout Sensory Exam: normal sensation Other: A&O x3 with poor situational recall, somnolent but awakens to voice Extrem: Other: dialysis fistula to RUE (bicep) +thrill and bruit. no peripheral edema. Psych: Mental Status: mental status grossly normal Affect: normal affect Other: Good insight and judgment, pleasant Objective Data Vital Signs Vital Signs: Vital Signs - 24 hr 11/06/24 15:09 11/06/24 15:18 11/06/24 15:19 Temperature 98.0 F Pulse Rate 88 88 Respiratory Rate 20 Blood Pressure 155/77 H Pulse Oximetry 97 96 Oxygen Delivery Nasal Cannula Nasal Cannula Oxygen Flow Rate 3 3 11/06/24 16:21 11/06/24 16:25 11/06/24 17:29 Temperature Pulse Rate 85 80 Respiratory Rate 12 22 H Blood Pressure 151/69 H 128/74 Pulse Oximetry 93 92 97 Oxygen Delivery Nasal Cannula Oxygen Flow Rate 3 11/06/24 18:52 11/06/24 21:04 11/06/24 23:00 Temperature 97.1 F L Pulse Rate 88 84 Respiratory Rate 20 22 H Blood Pressure 105/62 132/62 Pulse Oximetry 94 98 97 Oxygen Delivery Nasal Cannula Oxygen Flow Rate 3 11/06/24 23:42 11/07/24 00:00 11/07/24 04:00 Temperature Pulse Rate 84 82 78 Respiratory Rate 22 H Blood Pressure Pulse Oximetry 97 Oxygen Delivery Nasal Cannula Oxygen Flow Rate 2 11/07/24 06:00 11/07/24 08:00 11/07/24 08:00 Temperature 97.3 F L Pulse Rate 87 75 Respiratory Rate 22 H Blood Pressure 120/59 L Pulse Oximetry 93 95 Oxygen Delivery Nasal Cannula Oxygen Flow Rate 3 11/07/24 09:16 11/07/24 09:18 11/07/24 09:33 Temperature 98.2 F Pulse Rate 80 Respiratory Rate 24 H Blood Pressure 124/56 L Pulse Oximetry 84 L 95 Oxygen Delivery Oxygen Flow Rate 3 11/07/24 09:33 11/07/24 09:45 11/07/24 10:00 Temperature Pulse Rate 78 81 82 Respiratory Rate Blood Pressure 113/53 L 122/57 L 117/54 L Pulse Oximetry Oxygen Delivery Oxygen Flow Rate 11/07/24 10:15 11/07/24 10:30 11/07/24 10:45 Temperature Pulse Rate 79 78 77 Respiratory Rate Blood Pressure 110/54 L 105/53 L 96/48 L Pulse Oximetry Oxygen Delivery Oxygen Flow Rate 11/07/24 11:00 11/07/24 11:15 11/07/24 11:30 Temperature Pulse Rate 80 82 78 Respiratory Rate Blood Pressure 90/49 L 102/52 L 119/57 L Pulse Oximetry Oxygen Delivery Oxygen Flow Rate 11/07/24 11:45 11/07/24 12:00 11/07/24 12:15 Temperature Pulse Rate 78 78 77 Respiratory Rate Blood Pressure 110/52 L 98/48 L 99/47 L Pulse Oximetry Oxygen Delivery Oxygen Flow Rate 11/07/24 12:30 11/07/24 12:45 11/07/24 13:04 Temperature Pulse Rate 78 74 71 Respiratory Rate Blood Pressure 97/50 L 92/43 L 96/47 L Pulse Oximetry Oxygen Delivery Oxygen Flow Rate 11/07/24 13:08 Temperature 97.7 F Pulse Rate 78 Respiratory Rate 24 H Blood Pressure 106/55 L Pulse Oximetry 98 Oxygen Delivery Oxygen Flow Rate Intake/Output Intake/Output: Intake & Output 11/04/24 11/05/24 11/06/24 11/07/24 23:59 23:59 23:59 23:59 Intake Total 300 0 Output Total 2300 Balance 300 -2300 Meds/Results Medications: Active Medications Generic Name Dose Route Start Last Admin Trade Name Freq PRN Reason Stop Dose Admin Acetaminophen 650 mg 11/06/24 18:18 Acetaminophen 325 Mg Tablet PO Q6H PRN Mild Pain (1-3) or Fever Albuterol/Ipratropium 3 ml 11/06/24 18:16 Ipratropium 0.5 Mg/Albuterol Sulfate 2.5 Mg Ampul.Neb 3 Ml INHALATION Q6HRT PRN Shortness Of Breath Or Wheezing Atorvastatin Calcium 40 mg 11/07/24 09:00 11/07/24 08:51 Atorvastatin 40 Mg Tablet PO 40 mg DAILY LIZ Administration Benzonatate 100 mg 11/06/24 18:18 Benzonatate 100 Mg Capsule PO TID PRN Cough Calcium Acetate 667 mg 11/07/24 08:00 11/07/24 08:51 Calcium Acetate 667 Mg Tablet PO 667 mg TIDWM LIZ Administration Dextrose 12.5 gm 11/06/24 22:44 Dextrose 50% 25 Gm/50 Ml Syringe IV PUSH PRN PRN Hypoglycemia Protocol Epoetin Vini-epbx 4,000 units 11/07/24 18:01 11/07/24 11:52 Epoetin Vini-Epbx 4,000 Units/Ml Vial IV PUSH 11/07/24 18:02 4,000 units ONCE ONE Administration Ferrous Sulfate 325 mg 11/07/24 09:00 11/07/24 08:51 Ferrous Sulfate [address] PO 325 mg DAILY LIZ Administration Glucagon 1 mg 11/06/24 22:44 Glucagon For Inj 1 Mg Vial IM PRN PRN Hypoglycemia Protocol Glucose 15 gm 11/06/24 22:44 Glucose Oral Gel 15 Gm Of Glucse In 37.5 Gm Tube PO PRN PRN Hypoglycemia Protocol Guaifenesin 600 mg 11/06/24 21:00 11/07/24 08:51 Guaifenesin 12 Hr 600 Mg Tabcr PO 600 mg Q12HR LIZ Administration Ceftriaxone Sodium 1 gm in 50 mls @ 100 mls/hr 11/07/24 18:00 Rocephin 1 Gm/Ns 50 Ml IVPB Q24H LIZ Azithromycin 500 mg in 250 mls @ 250 mls/hr 11/07/24 18:00 Zithromax IVPB Q24H LIZ Albumin Human 50 mls @ 999 mls/hr 11/06/24 18:51 Albutein IVPB 12/06/24 18:50 Q10M PRN HYPOTENSION Dextrose 1,000 mls @ 100 mls/hr 11/06/24 22:44 Dextrose 5% 1,000 Ml IVPB PRN PRN Hypoglycemia Protocol Insulin Aspart 2 - 5 units 11/07/24 08:00 11/07/24 13:03 Insulin Aspart (*Bkc) 100 Units/Ml SUB-Q Not Given TIDWM [facility] Protocol Levothyroxine Sodium 112 mcg 11/07/24 06:30 11/07/24 05:12 Levothyroxine Sodium 112 Mcg Tablet PO 112 mcg DAILY@0630 LIZ Administration Magnesium Oxide 200 mg 11/07/24 09:00 11/07/24 08:51 Magnesium Oxide 200 Mg Tablet PO 200 mg DAILY LIZ Administration Melatonin 20 mg 11/06/24 22:55 11/06/24 23:47 Melatonin 5 Mg Tablet PO Not Given HS LIZ Mirtazapine 30 mg 11/06/24 22:45 11/06/24 23:47 Mirtazapine 30 Mg Tablet PO Not Given QHS LIZ Prochlorperazine Edisylate 10 mg 11/06/24 22:46 Prochlorperazine Edisylate 10 Mg/2 Ml Vial IV PUSH Q6H PRN Nausea And Vomiting Sertraline HCl 50 mg 11/07/24 09:00 11/07/24 08:51 Sertraline Hcl 50 Mg Tablet PO 50 mg DAILY LIZ Administration Sitagliptin Phosphate 100 mg 11/07/24 09:00 11/07/24 08:51 Sitagliptin Phosphate 100 Mg Tablet PO 100 mg QAM LIZ Administration Tramadol HCl 100 mg 11/06/24 22:43 Tramadol Hcl (*Crx) 50 Mg Tablet PO BID PRN Pain (Scale Score 4-6) Vitamin B Complex/Folic Acid 1 cap 11/07/24 09:00 11/07/24 08:51 Vitamin B Cmplx/Vit C/Folic Ac 1 Capsule PO 1 cap DAILY LIZ Administration Vitamin D 50 mcg 11/07/24 09:00 11/07/24 08:50 Cholecalciferol (Vitamin D3) 25 Mcg (1,000 Units) Tablet PO 50 mcg DAILY LIZ Administration Vitamin E 400 unit 11/07/24 09:00 Vitamin E 400 Unit Capsule PO DAILY LIZ Zinc Sulfate 220 mg 11/07/24 09:00 11/07/24 08:51 Zinc Sulfate 220 Mg Capsule PO 220 mg QAM LIZ Administration Radiology Results: ITS Impressions Chest X-Ray 11/06/24 16:11 IMPRESSION: Redemonstration of significant cardiomegaly with moderate pulmonary vascular congestion and multifocal pneumonia suspected. Labs Labs: Laboratory Results - last 24 hr 11/06/24 11/07/2411/07/25 16:05 05:05 05:28 WBC 10.6 H 12.3 H RBC 3.21 L 3.14 L Hgb 10.1 L 9.7 L Hct 33.7 L 33.4 L MCV 105.0 H 106.4 H MCH 31.5 30.9 MCHC 30.0 L 29.0 L RDW 15.6 H 15.8 H Plt Count 113 L D 101 L MPV 10.3 11.2 H Immature Gran % (Auto) Not Reportable 0.7 H Neut % (Auto) Not Reportable 87.4 H Lymph % (Auto) Not Reportable 5.7 L [place] % (Auto) Not Reportable 5.6 Eos % (Auto) Not Reportable 0.4 Baso % (Auto) Not Reportable 0.2 Lymph # (Auto) Not Reportable 0.70 L [place] # (Auto) Not Reportable 0.7 H Eos # (Auto) Not Reportable 0.1 Baso # (Auto) Not Reportable 0.0 Abs Immat Gran (auto) Not Reportable 0.08 H Absolute Neuts (auto) Not Reportable 10.8 H Absolute Nucleated RBC Not Reportable 0.000 Total Counted 100 Neutrophils % (Manual) 86 H Band Neutrophils % 4 Not Reportable Lymphocytes % (Manual) 2.0 L Monocytes % (Manual) 8 Nucleated RBC % Not Reportable 0.0 Abs Neuts (Manual) 9.54 H Abs Lymphs (Manual) 0.21 L Abs Monocytes (Manual) 0.84 Nucleated RBCs 1 Platelet Estimate Decreased Decreased Hypochromasia 1+ 1+ Anisocytosis 2+ Macrocytosis 1+ Schistocytes None seen None seen Sodium 136 L 136 L Potassium 5.2 H 5.5 H Chloride 96 L 98 Carbon Dioxide 28 28 Anion Gap 12 10 BUN 51 H D 57 H Creatinine 5.53 H 6.01 H Estim Creat Clear Calc Not Reportable Not Reportable Estimated GFR 7 L 7 L Glucose 141 H 88 POC Capillary Glucose Hemoglobin A1c 5.3 Calcium 9.4 9.1 Phosphorus 5.7 H Magnesium 2.8 H Total Bilirubin 0.7 0.7 AST 44 H 38 H ALT 22 17 Alkaline Phosphatase 182 H 144 H Total Protein 7.9 7.1 Albumin 4.0 3.5 Nasal MRSA (PCR) Not detected Hep Bs Antigen Negative Hep Bs Antibody Indeterminate 11/07/24 11/07/24 08:24 14:21 WBC RBC Hgb Hct MCV MCH MCHC RDW Plt Count MPV Immature Gran % (Auto) Neut % (Auto) Lymph % (Auto) [place] % (Auto) Eos % (Auto) Baso % (Auto) Lymph # (Auto) [place] # (Auto) Eos # (Auto) Baso # (Auto) Abs Immat Gran (auto) Absolute Neuts (auto) Absolute Nucleated RBC Total Counted Neutrophils % (Manual) Band Neutrophils % Lymphocytes % (Manual) Monocytes % (Manual) Nucleated RBC % Abs Neuts (Manual) Abs Lymphs (Manual) Abs Monocytes (Manual) Nucleated RBCs Platelet Estimate Hypochromasia Anisocytosis Macrocytosis Schistocytes Sodium Potassium Chloride Carbon Dioxide Anion Gap BUN Creatinine Estim Creat Clear Calc Estimated GFR Glucose POC Capillary Glucose 76 85 Hemoglobin A1c Calcium Phosphorus Magnesium Total Bilirubin AST ALT Alkaline Phosphatase Total Protein Albumin Nasal MRSA (PCR) Hep Bs Antigen Hep Bs Antibody Quality VTE Prophylaxis VTE prophylaxis: mechanical ordered
[2024-11-07] MEDS: AZITHROMYCIN 500 MG/NS 250 ML 500 MG/250 ML BAG 250 MG IVPB (17:29)
[2024-11-07] MEDS: MIRTAZAPINE 30 MG TABLET PO (22:50)
[2024-11-07] MEDS: MELATONIN 5 MG TABLET 20 MG PO (22:52)
[2024-11-08] VITALS (26 sets, daily range): BP systolic 77–137; BP diastolic 40–85; PULSE 72–86; RESP 16–20; TEMP 36.3–37.7; O2SAT 97–100
[2024-11-08] MEDS: BENZONATATE 100 MG CAPSULE PO (01:10)
[2024-11-08] MEDS: LEVOTHYROXINE SODIUM 112 MCG TABLET PO (06:32)
--- NOTE | 2024-11-08 11:10 | P.PNNP_ITS ---
Progress Note: A&P Assessment and Plan (1) End stage renal disease: Code(s): N18.6 - End stage renal disease Status: Chronic Assessment and Plan: * HD tomorrow * continue T/T/S dialysis schedule while hospitalized * follow electrolytes, volume status, and clearance (2) Acute on chronic hypoxic respiratory failure: Code(s): J96.21 - Acute and chronic respiratory failure with hypoxia Status: Acute Assessment and Plan: * as noted on presentation * remains on her chronic 3L supplemental oxygen at baseline * multifactorial etiology: * chronic respiratory failure * pneumonia * pulmonary vascular congestion * volume overload * pulmonary HTN * DUF session today for further fluid removal * continue supportive therapy as outlined (3) Multifocal pneumonia: Code(s): J18.9 - Pneumonia, unspecified organism Status: Acute Assessment and Plan: * as noted by admission CXR: * redemonstration of significant cardiomegaly with moderate pulmonary vascular congestion and multifocal pneumonia suspected * follow culture data * on antibiotic therapy * PRN antitussives and nebulizer treatments (4) Anemia: Code(s): D64.9 - Anemia, unspecified Status: Chronic Assessment and Plan: * due to ESRD and likely worsened by acute infection * Epogen with HD * follow H/H (5) Hypertension: Qualifiers: Hypertension type: secondary to other renal disorders Qualified Code(s): I15.1 - Hypertension secondary to other renal disorders Code(s): I10 - Essential (primary) hypertension Status: Chronic Assessment and Plan: * reasonable control * follow trend of hemodynamics (6) Type 2 diabetes mellitus with diabetic polyneuropathy: Qualifiers: Diabetes mellitus chcf insulin use: without manager intermediate use Q ualified Code(s): E11.42 - Type 2 diabetes mellitus with diabetic polyneuropathy Code(s): E11.42 - Type 2 diabetes mellitus with diabetic polyneuropathy Status: Chronic Assessment and Plan: * follow accu-cheks * glycemic control per hospitalists Will continue to follow. L Subjective Date/time seen: 11/08/24 11:10 Interval history: Follow-up for end stage renal disease on hemodialysis. Tolerated dialysis treatment yesterday without any issues or problems; tolerating dry ultrafiltration session at the time of my visit (seen on DUF on 11:00AM); still reports shortness of breath when seen but remains on home oxygen requirements (3L) with stable saturations; discussed situation with daughter as well. Exam 2 Narrative: General: somewhat ill-appearing elderly female in NAD Heart: normal S1 and S2; no rub Lungs: coarse breath sounds with scattered crackles Abdomen: soft, nontender, nondistended, positive bowel sounds Extremities: trace - 1+ bilateral edema (chronic) in LEs Skin: warm and dry Objective Data Vital Signs Vital Signs: Vital Signs Temp Pulse Resp BP Pulse Ox O2 Del Method O2 Flow Rate 11/08/24 11:00 73 125/57 L 11/08/24 10:45 79 135/72 11/08/24 10:30 74 122/65 11/08/24 10:15 77 126/66 11/08/24 10:00 72 132/60 11/08/24 09:45 75 123/65 11/08/24 09:30 72 121/65 11/08/24 09:15 76 124/62 11/08/24 09:00 77 137/85 11/08/24 08:45 79 134/64 11/08/24 08:30 79 115/60 11/08/24 08:12 81 123/61 11/08/24 08:03 97.9 F 84 16 122/65 100 11/08/24 08:00 81 11/08/24 08:00 97 Nasal Cannula 3 11/08/24 08:00 3 11/08/24 05:52 99.4 F 86 16 108/56 L 98 11/08/24 04:00 74 11/08/24 00:00 82 11/07/24 20:43 100.7 F H 85 17 98/48 L 96 11/07/24 20:00 90 11/07/24 20:00 85 17 96 Nasal Cannula 2 11/07/24 19:55 95 Nasal Cannula 2 Intake/Output Intake/Output: Intake & Output 11/05/24 11/06/24 11/07/24 11/08/24 23:59 23:59 23:59 23:59 Intake Total 300 300 100 Output Total 2300 2500 Balance 300 -2000 -2400 Meds/Results Medications: Active Medications Generic Name Dose Route Start Last Admin Trade Name Freq PRN Reason Stop Dose Admin Acetaminophen 650 mg 11/06/24 18:18 Acetaminophen 325 Mg Tablet PO Q6H PRN Mild Pain (1-3) or Fever Albuterol/Ipratropium 3 ml 11/06/24 18:16 Ipratropium 0.5 Mg/Albuterol Sulfate 2.5 Mg Ampul.Neb 3 Ml INHALATION Q6HRT PRN Shortness Of Breath Or Wheezing Atorvastatin Calcium 40 mg 11/07/24 09:00 11/08/24 12:39 Atorvastatin 40 Mg Tablet PO 40 mg DAILY ARLYN Administration Benzonatate 100 mg 11/06/24 18:18 11/08/24 01:10 Benzonatate 100 Mg Capsule PO 100 mg TID PRN Administration Cough Calcium Acetate 667 mg 11/07/24 08:00 11/08/24 17:17 Calcium Acetate 667 Mg Tablet PO 667 mg TIDWM ARLYN Administration Dextrose 12.5 gm 11/06/24 22:44 Dextrose 50% 25 Gm/50 Ml Syringe IV PUSH PRN PRN Hypoglycemia Protocol Ferrous Sulfate 325 mg 11/07/24 09:00 11/08/24 12:39 Ferrous Sulfate [address] PO 325 mg DAILY ARLYN Administration Glucagon 1 mg 11/06/24 22:44 Glucagon For Inj 1 Mg Vial IM PRN PRN Hypoglycemia Protocol Glucose 15 gm 11/06/24 22:44 Glucose Oral Gel 15 Gm Of Glucse In 37.5 Gm Tube PO PRN PRN Hypoglycemia Protocol Guaifenesin 600 mg 11/06/24 21:00 11/08/24 12:39 Guaifenesin 12 Hr 600 Mg Tabcr PO 600 mg Q12HR ARLYN Administration Ceftriaxone Sodium 1 gm in 50 mls @ 100 mls/hr 11/07/24 18:00 11/08/24 17:18 Rocephin 1 Gm/Ns 50 Ml IVPB 100 mls/hr Q24H ARLYN Administration Azithromycin 500 mg in 250 mls @ 250 mls/hr 11/07/24 18:00 11/08/24 17:17 Zithromax IVPB 250 mls/hr Q24H ARLYN Administration Albumin Human 50 mls @ 999 mls/hr 11/06/24 18:51 Albutein IVPB 12/06/24 18:50 Q10M PRN HYPOTENSION Dextrose 1,000 mls @ 100 mls/hr 11/06/24 22:44 Dextrose 5% 1,000 Ml IVPB PRN PRN Hypoglycemia Protocol Insulin Aspart 2 - 5 units 11/07/24 08:00 11/08/24 17:14 Insulin Aspart (*Bkc) 100 Units/Ml SUB-Q Not Given TIDWM [facility] Protocol Levothyroxine Sodium 112 mcg 11/07/24 06:30 11/08/24 06:32 Levothyroxine Sodium 112 Mcg Tablet PO 112 mcg DAILY@0630 ARLYN Administration Lidocaine/Prilocaine 1 each 11/09/24 06:00 Lidocaine/Prilocaine Cream 2.5-2.5% Tube TOPICAL 11/21/24 16:02 ONCE PRN Pain Magnesium Oxide 200 mg 11/07/24 09:00 11/08/24 12:39 Magnesium Oxide 200 Mg Tablet PO 200 mg DAILY [facility] Administration Melatonin 20 mg 11/06/24 22:55 11/07/24 22:52 Melatonin 5 Mg Tablet PO 20 mg HS [facility] Administration Mirtazapine 30 mg 11/06/24 22:45 11/07/24 22:50 Mirtazapine 30 Mg Tablet PO 30 mg QHS [facility] Administration Prochlorperazine Edisylate 10 mg 11/06/24 22:46 Prochlorperazine Edisylate 10 Mg/2 Ml Vial IV PUSH Q6H PRN Nausea And Vomiting Sertraline HCl 50 mg 11/07/24 09:00 11/08/24 12:39 Sertraline Hcl 50 Mg Tablet PO 50 mg DAILY [facility] Administration Sitagliptin Phosphate 100 mg 11/07/24 09:00 11/08/24 12:39 Sitagliptin Phosphate 100 Mg Tablet PO 100 mg QAM [facility] Administration Tramadol HCl 100 mg 11/06/24 22:43 Tramadol Hcl (*Crx) 50 Mg Tablet PO BID PRN Pain (Scale Score 4-6) Vitamin B Complex/Folic Acid 1 cap 11/07/24 09:00 11/08/24 12:39 Vitamin B Cmplx/Vit C/Folic Ac 1 Capsule PO 1 cap DAILY [facility] Administration Vitamin D 50 mcg 11/07/24 09:00 11/08/24 12:39 Cholecalciferol (Vitamin D3) 25 Mcg (1,000 Units) Tablet PO 50 mcg DAILY [facility] Administration Vitamin E 400 unit 11/07/24 09:00 11/08/24 12:39 Vitamin E 400 Unit Capsule PO 400 unit DAILY [facility] Administration Zinc Sulfate 220 mg 11/07/24 09:00 11/08/24 12:39 Zinc Sulfate 220 Mg Capsule PO 220 mg QAM ARLYN Administration Radiology Results: ITS Impressions Chest X-Ray 11/07/24 18:44 IMPRESSION: Increased opacification of the right hemithorax with moderate pulmonary vascular congestion. Labs Labs: Laboratory Tests 11/07/24 05:28 11/07/24 05:28 Microbiology 11/07/24 08:57 Sputum Sputum Culture - Final 11/06/24 21:35 Blood Blood Culture - Preliminary 11/06/24 21:34 Blood Blood Culture - Preliminary
[2024-11-08] MEDS: ZINC SULFATE 220 MG CAPSULE PO (12:39)
[2024-11-08] MEDS: ATORVASTATIN 40 MG TABLET PO (12:39)
[2024-11-08] MEDS: VITAMIN E 400 UNIT CAPSULE PO (12:39)
[2024-11-08] MEDS: SERTRALINE HCL 50 MG TABLET PO (12:39)
[2024-11-08] MEDS: guaiFENesin 12 HR 600 MG TABCR PO ×2 (12:39→21:55)
[2024-11-08] MEDS: CHOLECALCIFEROL (VITAMIN D3) 25 MCG (1,000 UNITS) TABLET 50 MCG PO (12:39)
[2024-11-08] MEDS: MAGNESIUM OXIDE 200 MG TABLET PO (12:39)
[2024-11-08] MEDS: CALCIUM ACETATE 667 MG TABLET PO ×2 (12:39→17:17)
[2024-11-08] MEDS: FERROUS SULFATE 325 MG TABLET DR PO (12:39)
[2024-11-08] MEDS: VITAMIN B CMPLX/VIT C/FOLIC AC 1 CAPSULE 1 CAP PO (12:39)
--- NOTE | 2024-11-08 13:19 | P.PNIM_ITS ---
Progress Note: A&P Assessment and Plan (1) Multifocal pneumonia: Code(s): J18.9 - Pneumonia, unspecified organism Status: Acute Assessment and Plan: - CXR: Redemonstration of significant cardiomegaly with moderate pulmonary vascular congestion and multifocal pneumonia suspected. - did not meet SIRS criteria - started on ceftriaxone and azithromycin on 11/06 - check MRSA PCR and sputum culture - patient on her baseline supplemental O2 requirement - 3L NC- try to titrate down as she is at 98% and still on 3 l - supportive care: Tessalon Perles p.r.n., Mucinex liz, DuoNebs p.r.n., Tylenol p.r.n. - daily labs ordered =IS (2) End stage renal disease: Code(s): N18.6 - End stage renal disease Status: Chronic Assessment and Plan: - creatinine 5.53, BUN 51, GFR 7 - hx of ESRD on HD (//Mon) - nephrology consulted for inpatient dialysis - trend renal function - trend electrolytes, correct as needed nephrology following (3) Type 2 diabetes mellitus with diabetic chronic kidney disease: Qualifiers: Chronic kidney disease stage: on chronic dialysis Diabetes mellitus fdc insulin use: without long wall mining machine helper use Qualified Code(s): E11.22 - Type 2 diabetes mellitus with diabetic chronic kidney disease; N18.6 - End stage renal disease; Z99.2 - Dependence on renal dialysis Code(s): E11.22 - Type 2 diabetes mellitus with diabetic chronic kidney disease Status: Chronic Assessment and Plan: - hypoglycemia protocol - POC blood glucose ACHS - home medication: Tradjenta - correct regimen ordered - low dose TIDWM, based off TDD - A1C 5.2% in 2023, update (4) Hypertension: Qualifiers: Hypertension type: secondary to other renal disorders Qualified Code(s): I15.1 - Hypertension secondary to other renal disorders Code(s): I10 - Essential (primary) hypertension Status: Chronic Assessment and Plan: - chronic, currently 128/74 - no antihypertensive medications listed on med rec - monitor Plan Diet: Renal GI Prophylaxis: not currently indicated DVT Prophylaxis: SCDs IV fluids: none Lines/Tubes: peripheral IV Code Status: full code Time Spent With Patient Time with patient: 25 - 35 minutes Subjective Date/time seen: 11/08/24 13:19 Interval history: 79 y/o F with PMH of hypertension, diabetes, ESRD on HD, hypothyroidism, gout, and depression presents here with shortness of breath. the patient presents here from home via EMS on 11/06 for further evaluation of shortness of breath. HPI obtained largely through chart review as the patient is currently a poor historian and unable to provide details about the timeline of her symptomatology. Daughter was present at the bedside in the emergency department and provided the following report. She reports that she has had a worsening productive cough and shortness of breath starting yesterday (11/05). she wears 3 L nasal cannula at baseline and was 90% at home On her normal O2. The patient reported a worsening cough and subjective chills. She denied nausea, vomiting, chest pain, headache, vision changes, abdominal pain, or back pain to the emergency room to provider. Daughter also reported that the patient had dialysis yesterday and was feeling unwell at her treatment and had nausea and vomiting x1. The patient is currently reporting fatigue. Initial VS at presentation: 90? F, HR 88, RR 20, 155/77, and 97% on 3L nasal cannula ED workup showed: WBC 10.6, hemoglobin 10.1, sodium 136, potassium 5.2, creatinine 5.53 and GFR 7, glucose 141. CXR showed redemonstration of significant cardiomegaly with moderate pulmonary vascular congestion and multifocal pneumonia suspected. Pt seen and examined. She is sitting in bed, reports sob, wearing o2 at 3l her baseline. She saw pulm few month ago-07/10/24. plan was try to titrate oxygen down. Portex acapella was advised. she reports having multiple pnemonia episodes in the last year- close to 5-6. she is 98% and still on 3 l now. she denies chest pain, n/v/d. 11/08 pt is seen and examined. she is still on 3l, o2sat at 100%. still sob, no n/v/. Review of Systems Review of Systems: All systems reviewed & are unremarkable except as noted in HPI and below ( somewhat limited due to patient condition) Exam Narrative: bibasilar crackles in all lung mcgregor. No wheezing. Ill appearing. dialysis fistula to RUE (bicep) +thrill and bruit. no peripheral edema. Const: General: comfortable and no acute distress Other: , female, elderly, acutely ill-appearing on top of chronically ill appearance HENMT: Face/Nose/Sinus: Normal nares present Mouth: Yes moist mucous membranes Eyes: General: appearance normal, both eyes and all related structures Sclera: sclerae normal Pupils: Equal, round and reactive pupils present EOM: EOMs intact bilaterally Resp: Effort & Inspection: normal respiratory effort Other: nasal cannula place, tolerating well. Cardio: Rate: regular rate Rhythm: regular rhythm Other: +Murmur GI: Other: Abdomen soft, nondistended, nontender. Normoactive bowel sounds in all quadrants. Skin: General skin exam: normal color and no rashes or lesions noted Wounds: no wounds Neuro: Cranial nerves: Yes Equal, round and reactive pupils present Speech: normal speech Motor exam (neuro): 5/5 motor strength present throughout Sensory Exam: normal sensation Other: A&O x3 with poor situational recall, somnolent but awakens to voice Extrem: Other: dialysis fistula to RUE (bicep) +thrill and bruit. no peripheral edema. Psych: Mental Status: mental status grossly normal Affect: normal affect Other: Good insight and judgment, pleasant Objective Data Vital Signs Vital Signs: Vital Signs - 24 hr 11/07/24 14:00 11/07/24 16:00 11/07/24 19:55 Temperature 97.1 F L Pulse Rate 65 79 Respiratory Rate 18 Blood Pressure 114/43 L Pulse Oximetry 100 95 Oxygen Delivery Nasal Cannula Oxygen Flow Rate 2 11/07/24 20:00 11/07/24 20:00 11/07/24 20:43 Temperature 100.7 F H Pulse Rate 85 90 85 Respiratory Rate 17 17 Blood Pressure 98/48 L Pulse Oximetry 96 96 Oxygen Delivery Nasal Cannula Oxygen Flow Rate 2 11/08/24 00:00 11/08/24 04:00 11/08/24 05:52 Temperature 99.4 F Pulse Rate 82 74 86 Respiratory Rate 16 Blood Pressure 108/56 L Pulse Oximetry 98 Oxygen Delivery Oxygen Flow Rate 11/08/24 08:00 11/08/24 08:00 11/08/24 08:00 Temperature Pulse Rate 81 Respiratory Rate Blood Pressure Pulse Oximetry 97 Oxygen Delivery Nasal Cannula Oxygen Flow Rate 3 3 11/08/24 08:03 11/08/24 08:12 11/08/24 08:30 Temperature 97.9 F Pulse Rate 84 81 79 Respiratory Rate 16 Blood Pressure 122/65 123/61 115/60 Pulse Oximetry 100 Oxygen Delivery Oxygen Flow Rate 11/08/24 08:45 11/08/24 09:00 11/08/24 09:15 Temperature Pulse Rate 79 77 76 Respiratory Rate Blood Pressure 134/64 137/85 124/62 Pulse Oximetry Oxygen Delivery Oxygen Flow Rate 11/08/24 09:30 11/08/24 09:45 11/08/24 10:00 Temperature Pulse Rate 72 75 72 Respiratory Rate Blood Pressure 121/65 123/65 132/60 Pulse Oximetry Oxygen Delivery Oxygen Flow Rate 11/08/24 10:15 11/08/24 10:30 11/08/24 10:45 Temperature Pulse Rate 77 74 79 Respiratory Rate Blood Pressure 126/66 122/65 135/72 Pulse Oximetry Oxygen Delivery Oxygen Flow Rate 11/08/24 11:00 11/08/24 11:15 11/08/24 11:34 Temperature 97.5 F L Pulse Rate 73 72 76 Respiratory Rate 16 Blood Pressure 125/57 L 128/61 132/73 Pulse Oximetry 100 Oxygen Delivery Oxygen Flow Rate Intake/Output Intake/Output: Intake & Output 11/05/24 11/06/24 11/07/24 11/08/24 23:59 23:59 23:59 23:59 Intake Total 300 300 Output Total 2300 2500 Balance 300 -2000 -2500 Meds/Results Medications: Active Medications Generic Name Dose Route Start Last Admin Trade Name Freq PRN Reason Stop Dose Admin Acetaminophen 650 mg 11/06/24 18:18 Acetaminophen 325 Mg Tablet PO Q6H PRN Mild Pain (1-3) or Fever Albuterol/Ipratropium 3 ml 11/06/24 18:16 Ipratropium 0.5 Mg/Albuterol Sulfate 2.5 Mg Ampul.Neb 3 Ml INHALATION Q6HRT PRN Shortness Of Breath Or Wheezing Atorvastatin Calcium 40 mg 11/07/24 09:00 11/08/24 12:39 Atorvastatin 40 Mg Tablet PO 40 mg DAILY LIZ Administration Benzonatate 100 mg 11/06/24 18:18 11/08/24 01:10 Benzonatate 100 Mg Capsule PO 100 mg TID PRN Administration Cough Calcium Acetate 667 mg 11/07/24 08:00 11/08/24 12:39 Calcium Acetate 667 Mg Tablet PO 667 mg TIDWM LIZ Administration Dextrose 12.5 gm 11/06/24 22:44 Dextrose 50% 25 Gm/50 Ml Syringe IV PUSH PRN PRN Hypoglycemia Protocol Ferrous Sulfate 325 mg 11/07/24 09:00 11/08/24 12:39 Ferrous Sulfate [address] PO 325 mg DAILY LIZ Administration Glucagon 1 mg 11/06/24 22:44 Glucagon For Inj 1 Mg Vial IM PRN PRN Hypoglycemia Protocol Glucose 15 gm 11/06/24 22:44 Glucose Oral Gel 15 Gm Of Glucse In 37.5 Gm Tube PO PRN PRN Hypoglycemia Protocol Guaifenesin 600 mg 11/06/24 21:00 11/08/24 12:39 Guaifenesin 12 Hr 600 Mg Tabcr PO 600 mg Q12HR LIZ Administration Ceftriaxone Sodium 1 gm in 50 mls @ 100 mls/hr 11/07/24 18:00 11/07/24 17:59 Rocephin 1 Gm/Ns 50 Ml IVPB Infused Q24H LIZ Infusion Azithromycin 500 mg in 250 mls @ 250 mls/hr 11/07/24 18:00 11/07/24 18:29 Zithromax IVPB Infused Q24H LIZ Infusion Albumin Human 50 mls @ 999 mls/hr 11/06/24 18:51 Albutein IVPB 12/06/24 18:50 Q10M PRN HYPOTENSION Dextrose 1,000 mls @ 100 mls/hr 11/06/24 22:44 Dextrose 5% 1,000 Ml IVPB PRN PRN Hypoglycemia Protocol Insulin Aspart 2 - 5 units 11/07/24 08:00 11/08/24 13:05 Insulin Aspart (*Bkc) 100 Units/Ml SUB-Q Not Given TIDWM [facility] Protocol Levothyroxine Sodium 112 mcg 11/07/24 06:30 11/08/24 06:32 Levothyroxine Sodium 112 Mcg Tablet PO 112 mcg DAILY@0630 LIZ Administration Lidocaine/Prilocaine 1 each 11/09/24 06:00 Lidocaine/Prilocaine Cream 2.5-2.5% Tube TOPICAL 11/21/24 16:02 ONCE PRN Pain Magnesium Oxide 200 mg 11/07/24 09:00 11/08/24 12:39 Magnesium Oxide 200 Mg Tablet PO 200 mg DAILY LIZ Administration Melatonin 20 mg 11/06/24 22:55 11/07/24 22:52 Melatonin 5 Mg Tablet PO 20 mg HS LIZ Administration Mirtazapine 30 mg 11/06/24 22:45 11/07/24 22:50 Mirtazapine 30 Mg Tablet PO 30 mg QHS LIZ Administration Prochlorperazine Edisylate 10 mg 11/06/24 22:46 Prochlorperazine Edisylate 10 Mg/2 Ml Vial IV PUSH Q6H PRN Nausea And Vomiting Sertraline HCl 50 mg 11/07/24 09:00 11/08/24 12:39 Sertraline Hcl 50 Mg Tablet PO 50 mg DAILY LIZ Administration Sitagliptin Phosphate 100 mg 11/07/24 09:00 11/08/24 12:39 Sitagliptin Phosphate 100 Mg Tablet PO 100 mg QAM LIZ Administration Tramadol HCl 100 mg 11/06/24 22:43 Tramadol Hcl (*Crx) 50 Mg Tablet PO BID PRN Pain (Scale Score 4-6) Vitamin B Complex/Folic Acid 1 cap 11/07/24 09:00 11/08/24 12:39 Vitamin B Cmplx/Vit C/Folic Ac 1 Capsule PO 1 cap DAILY LIZ Administration Vitamin D 50 mcg 11/07/24 09:00 11/08/24 12:39 Cholecalciferol (Vitamin D3) 25 Mcg (1,000 Units) Tablet PO 50 mcg DAILY LIZ Administration Vitamin E 400 unit 11/07/24 09:00 11/08/24 12:39 Vitamin E 400 Unit Capsule PO 400 unit DAILY LIZ Administration Zinc Sulfate 220 mg 11/07/24 09:00 11/08/24 12:39 Zinc Sulfate 220 Mg Capsule PO 220 mg QAM LIZ Administration Radiology Results: ITS Impressions Chest X-Ray 11/07/24 18:44 IMPRESSION: Increased opacification of the right hemithorax with moderate pulmonary vascular congestion. Labs Labs: Laboratory Results - last 24 hr 11/07/24 11/07/24 14:21 20:51 POC Capillary Glucose 85 162 H Quality VTE Prophylaxis VTE prophylaxis: mechanical ordered
[2024-11-08] MEDS: AZITHROMYCIN 500 MG/NS 250 ML 500 MG/250 ML BAG 250 MG IVPB (17:17)
[2024-11-08] MEDS: MELATONIN 5 MG TABLET 20 MG PO (21:55)
[2024-11-08] MEDS: MIRTAZAPINE 30 MG TABLET PO (21:55)
[2024-11-09] VITALS (40 sets, daily range): BP systolic 76–127; BP diastolic 41–99; PULSE 70–96; RESP 16–27; TEMP 36.5–37.7; O2SAT 92–100
[2024-11-09 00:14] LABS: Alveolar/Arterial O2 Gradient 22.4 mmHg; Fractional Inspired Oxygen 32 %; HCO3 ABG 28.6 mEq/l (22.0-26.0); Oxygen Content ABG 15.0 %vol (16.0-22.0); Oxygen Saturation ABG 97.8 % (95.0-100.0); PO2 ABG 125.9 mmHg (80.0-100.0); PO2 FiO2 Ratio Arterial Blood 3.93 %
[2024-11-09 00:17] LABS: Liters per Minute 3.0 LPM; PCO2 ABG 68.3 mmHg (35.0-45.0); Site Drawn RIGHT BRACHIAL
[2024-11-09 02:39] LABS: Alveolar/Arterial O2 Gradient 41.4 mmHg; Carboxyhemoglobin 0.5 % THb (0-2.0); Fractional Inspired Oxygen 25 %; HCO3 ABG 28.2 mEq/l (22.0-26.0); Methemoglobin ABG 0.3 %THb (0-1.5); Oxygen Content ABG 13.3 %vol (16.0-22.0); Oxygen Saturation ABG 92.0 % (95.0-100.0); PCO2 ABG 57.0 mmHg (35.0-45.0); PO2 ABG 69.2 mmHg (80.0-100.0); PO2 FiO2 Ratio Arterial Blood 2.77 %; Reduced Hemoglobin 6.7 %THb (0-5.0); Site Drawn RIGHT BRACHIAL
[2024-11-09 02:40] LABS: Non-Invasive Expiratory Pressure 5 CMH2O; Non-Invasive Inspiratory Pressure 10 CMH2O; Non-Invasive Vent Rate 20 /MIN
--- NOTE | 2024-11-09 03:58 | PC.NURSE ---
around midnight pt was restless and disoriented to place, more drowsy than her baseline. vs were stable as the prior ones, BG was normal. pt was on NC 3 L (pt's baseline). HELPER/DRIVER Valeria Sagastume was updated about the pt's status change, ABG's were taken stat. Due to critical results pt was connected to BIPAP, the test was retaken with a slight improvement. Also, on monitor pt had 6 beats of V-tach, HELPER/DRIVER Ramesh was notified. Patient will be transferred to IMU. labor crew supervisor and charge nurse were notified.
[2024-11-09] MEDS: LEVOTHYROXINE SODIUM 112 MCG TABLET PO (05:41)
[2024-11-09 06:13] LABS: Hematocrit 33.4 % (37.0-47.0); Hemoglobin 9.8 g/dL (12.0-15.0); Mean Corpuscular HGB Conc 29.3 g/dl (32-36); Mean Corpuscular Hemoglobin 31.8 pg (26-34); Mean Corpuscular Volume 108.4 fl (80-100); Platelet Count Result 109 k/mm3 (150-375); Red Blood Count 3.08 M/mm3 (4.2-5.4); White Blood Count 7.5 K/mm3 (4.5-10.0)
[2024-11-09 06:28] LABS: Alanine Aminotransferase 18 U/L (6-35); Albumin Level 3.7 g/dL (3.5-5.1); Alkaline Phosphatase 188 U/L (38-126); Anion Gap 13 mmol/L (4-12); Aspartate Amino Transferase 40 U/L (14-36); Bilirubin,Total 0.9 mg/dL (0.2-1.3); Blood Urea Nitrogen 44 mg/dL (7-17); Calcium 9.5 mg/dL (8.4-10.2); Carbon Dioxide 24 mmol/L (22-30); Chloride 101 mmol/L (98-107); Estimated Glomerular Filt Rate 8; Glucose 88 mg/dL (65-110); Magnesium 2.7 mg/dL (1.6-2.3); Potassium 4.6 mmol/L (3.4-5.0); Sodium 138 mmol/L (137-145); Total Protein 7.7 g/dL (6.3-8.2)
[2024-11-09] MEDS: SERTRALINE HCL 50 MG TABLET PO (08:45)
[2024-11-09] MEDS: FERROUS SULFATE 325 MG TABLET DR PO (08:45)
[2024-11-09] MEDS: LIDOCAINE/PRILOCAINE CREAM 2.5-2.5% TUBE 1 EACH TOPICAL (08:45)
[2024-11-09] MEDS: ATORVASTATIN 40 MG TABLET PO (08:45)
[2024-11-09] MEDS: VITAMIN B CMPLX/VIT C/FOLIC AC 1 CAPSULE 1 CAP PO (08:45)
[2024-11-09] MEDS: CHOLECALCIFEROL (VITAMIN D3) 25 MCG (1,000 UNITS) TABLET 50 MCG PO (08:45)
[2024-11-09] MEDS: CALCIUM ACETATE 667 MG TABLET PO ×3 (08:45→17:18)
[2024-11-09] MEDS: guaiFENesin 12 HR 600 MG TABCR PO ×2 (08:45→22:28)
[2024-11-09] MEDS: MAGNESIUM OXIDE 200 MG TABLET PO (08:45)
--- NOTE | 2024-11-09 10:35 | P.PNNP_ITS ---
Progress Note: A&P Assessment and Plan (1) End stage renal disease: Code(s): N18.6 - End stage renal disease Status: Chronic Assessment and Plan: * HD today * continue T/T/S dialysis schedule while hospitalized * follow electrolytes, volume status, and clearance (2) Acute on chronic hypoxic respiratory failure: Code(s): J96.21 - Acute and chronic respiratory failure with hypoxia Status: Acute Assessment and Plan: * as noted on presentation * remains on her chronic 3L supplemental oxygen at baseline * wean as tolerated * multifactorial etiology: * chronic respiratory failure * pneumonia * pulmonary vascular congestion * volume overload * pulmonary HTN * s/p DUF session on 11/08 for further fluid removal * continue supportive therapy as outlined (3) Multifocal pneumonia: Code(s): J18.9 - Pneumonia, unspecified organism Status: Acute Assessment and Plan: * as noted by admission CXR: * redemonstration of significant cardiomegaly with moderate pulmonary vascular congestion and multifocal pneumonia suspected * follow culture data * on antibiotic therapy * PRN antitussives and nebulizer treatments (4) Anemia: Code(s): D64.9 - Anemia, unspecified Status: Chronic Assessment and Plan: * due to ESRD and likely worsened by acute infection * Epogen with HD * follow H/H (5) Hypertension: Qualifiers: Hypertension type: secondary to other renal disorders Qualified Code(s): I15.1 - Hypertension secondary to other renal disorders Code(s): I10 - Essential (primary) hypertension Status: Chronic Assessment and Plan: * reasonable control * follow trend of hemodynamics (6) Type 2 diabetes mellitus with diabetic polyneuropathy: Qualifiers: Diabetes mellitus terminal gauger insulin use: without terminal gauger use Q ualified Code(s): E11.42 - Type 2 diabetes mellitus with diabetic polyneuropathy Code(s): E11.42 - Type 2 diabetes mellitus with diabetic polyneuropathy Status: Chronic Assessment and Plan: * follow accu-cheks * glycemic control per hospitalists Will continue to follow. L Subjective Date/time seen: 11/09/24 10:35 Interval history: Follow-up for end stage renal disease on hemodialysis. Tolerated dry ultrafiltration session yesterday ~ 2.5L fluid removal; tolerating dialysis treatment at the time of my visit (seen on HD at 10:25am) but her hemodynamics/blood pressure is not tolerating aggressive fluid removal; overnight, issues with restlessness and altered mentation with stable vital signs/blood sugar and oxygen saturations but ABG noted acidosis and hypercarbia so BiPAP initiated and moved to IMU for closer monitoring; back on supplemental oxygen when seen. Exam 2 Narrative: General: somewhat ill-appearing elderly female in NAD Heart: normal S1 and S2; no rub Lungs: coarse breath sounds with a few bibasilar crackles Abdomen: soft, nontender, nondistended, positive bowel sounds Extremities: trace - 1+ bilateral edema (chronic) in LEs Skin: warm and intact Objective Data Vital Signs Vital Signs: Vital Signs Temp Pulse Resp BP Pulse Ox O2 Del Method O2 Flow Rate 11/09/24 10:30 79 96/47 L 11/09/24 10:15 79 102/51 L 11/09/24 10:00 77 11/09/24 10:00 83 106/54 L 11/09/24 09:45 86 118/62 11/09/24 09:43 82 124/60 11/09/24 09:43 3 11/09/24 09:15 98.4 F 84 24 H 126/62 100 11/09/24 08:11 96 Nasal Cannula 3 11/09/24 08:00 79 11/09/24 08:00 86 22 H 95 Nasal Cannula 3 11/09/24 08:00 97.8 F 81 22 H 116/42 L 100 11/09/24 06:27 85 11/09/24 06:00 80 11/09/24 05:45 98.2 F 96 22 H 121/73 96 11/09/24 05:30 81 27 H 92 BiPAP 11/09/24 02:41 72 24 H 93 BiPAP 11/09/24 01:00 BiPAP 11/09/24 00:45 83 27 H 96 BiPAP 11/09/24 00:00 82 11/09/24 00:00 80 26 H 100 Nasal Cannula 3 11/08/24 23:59 85 16 105/54 L 100 11/08/24 22:08 97.4 F L 81 16 106/52 L 100 11/08/24 20:41 99.9 F H 83 16 77/40 L 100 11/08/24 20:00 77 11/08/24 20:00 Nasal Cannula 3 11/08/24 16:00 82 Intake/Output Intake/Output: Intake & Output 11/06/24 11/07/24 11/08/24 11/09/24 23:59 23:59 23:59 23:59 Intake Total 300 300 390 240 Output Total 2300 2500 0 Balance 300 -2000 -2110 240 Meds/Results Medications: Active Medications Generic Name Dose Route Start Last Admin Trade Name Malina PRN Reason Stop Dose Admin Acetaminophen 650 mg 11/06/24 18:18 Acetaminophen 325 Mg Tablet PO Q6H PRN Mild Pain (1-3) or Fever Albuterol/Ipratropium 3 ml 11/06/24 18:16 Ipratropium 0.5 Mg/Albuterol Sulfate 2.5 Mg Ampul.Neb 3 Ml INHALATION Q6HRT PRN Shortness Of Breath Or Wheezing Atorvastatin Calcium 40 mg 11/07/24 09:00 11/09/24 08:45 Atorvastatin 40 Mg Tablet PO 40 mg DAILY ARLYN Administration Benzonatate 100 mg 11/06/24 18:18 11/08/24 01:10 Benzonatate 100 Mg Capsule PO 100 mg TID PRN Administration Cough Calcium Acetate 667 mg 11/07/24 08:00 11/09/24 08:45 Calcium Acetate 667 Mg Tablet PO 667 mg TIDWM ARLYN Administration Dextrose 12.5 gm 11/06/24 22:44 Dextrose 50% 25 Gm/50 Ml Syringe IV PUSH PRN PRN Hypoglycemia Protocol Epoetin Vini-epbx 10,000 units 11/09/24 19:18 11/09/24 12:14 Epoetin Vini-Epbx 10,000 Units/Ml Vial IV PUSH 11/09/24 19:19 10,000 units ONCE ONE Administration Ferrous Sulfate 325 mg 11/07/24 09:00 11/09/24 08:45 Ferrous Sulfate [address] PO 325 mg DAILY ARLYN Administration Glucagon 1 mg 11/06/24 22:44 Glucagon For Inj 1 Mg Vial IM PRN PRN Hypoglycemia Protocol Glucose 15 gm 11/06/24 22:44 Glucose Oral Gel 15 Gm Of Glucse In 37.5 Gm Tube PO PRN PRN Hypoglycemia Protocol Guaifenesin 600 mg 11/06/24 21:00 11/09/24 08:45 Guaifenesin 12 Hr 600 Mg Tabcr PO 600 mg Q12HR ARLYN Administration Ceftriaxone Sodium 1 gm in 50 mls @ 100 mls/hr 11/07/24 18:00 11/08/24 17:48 Rocephin 1 Gm/Ns 50 Ml IVPB Infused Q24H ARLYN Infusion Azithromycin 500 mg in 250 mls @ 250 mls/hr 11/07/24 18:00 11/08/24 17:17 Zithromax IVPB 250 mls/hr Q24H ARLYN Administration Albumin Human 50 mls @ 999 mls/hr 11/06/24 18:51 11/09/24 11:53 Albutein IVPB 12/06/24 18:50 999 mls/hr Q10M PRN Administration HYPOTENSION Dextrose 1,000 mls @ 100 mls/hr 11/06/24 22:44 Dextrose 5% 1,000 Ml IVPB PRN PRN Hypoglycemia Protocol Insulin Aspart 2 - 5 units 11/07/24 08:00 11/09/24 13:42 Insulin Aspart (*Bkc) 100 Units/Ml SUB-Q Not Given TIDWM [facility] Protocol Levothyroxine Sodium 112 mcg 11/07/24 06:30 11/09/24 05:41 Levothyroxine Sodium 112 Mcg Tablet PO 112 mcg DAILY@0630 ARLYN Administration Lidocaine/Prilocaine 1 each 11/09/24 06:00 11/09/24 08:45 Lidocaine/Prilocaine Cream 2.5-2.5% Tube TOPICAL 11/21/24 16:02 1 each ONCE PRN Administration Pain Magnesium Oxide 200 mg 11/07/24 09:00 11/09/24 08:45 Magnesium Oxide 200 Mg Tablet PO 200 mg DAILY ARLYN Administration Melatonin 20 mg 11/06/24 22:55 11/08/24 21:55 Melatonin 5 Mg Tablet PO 20 mg HS ARLYN Administration Mirtazapine 30 mg 11/06/24 22:45 11/08/24 21:55 Mirtazapine 30 Mg Tablet PO 30 mg QHS ARLYN Administration Prochlorperazine Edisylate 10 mg 11/06/24 22:46 Prochlorperazine Edisylate 10 Mg/2 Ml Vial IV PUSH Q6H PRN Nausea And Vomiting Sertraline HCl 50 mg 11/07/24 09:00 11/09/24 08:45 Sertraline Hcl 50 Mg Tablet PO 50 mg DAILY ARLYN Administration Sitagliptin Phosphate 100 mg 11/07/24 09:00 11/09/24 08:45 Sitagliptin Phosphate 100 Mg Tablet PO 100 mg QAM [facility] Administration Tramadol HCl 100 mg 11/06/24 22:43 Tramadol Hcl (*Crx) 50 Mg Tablet PO BID PRN Pain (Scale Score 4-6) Vitamin B Complex/Folic Acid 1 cap 11/07/24 09:00 11/09/24 08:45 Vitamin B Cmplx/Vit C/Folic Ac 1 Capsule PO 1 cap DAILY ARLYN Administration Vitamin D 50 mcg 11/07/24 09:00 11/09/24 08:45 Cholecalciferol (Vitamin D3) 25 Mcg (1,000 Units) Tablet PO 50 mcg DAILY [facility] Administration Vitamin E 400 unit 11/07/24 09:00 11/09/24 08:46 Vitamin E 400 Unit Capsule PO Not Given DAILY [facility] Zinc Sulfate 220 mg 11/07/24 09:00 11/09/24 08:46 Zinc Sulfate 220 Mg Capsule PO Not Given QAM [facility] Radiology Results: ITS Impressions Chest X-Ray 11/08/24 18:06 IMPRESSION: Right basilar atelectasis versus pneumonia with pleural effusion. Underlying pulmonary edema. Labs Labs: Laboratory Tests 11/09/24 05:58 11/09/24 05:58 Calcium 9.5 Phosphorus 5.0 H Magnesium 2.7 H Total Bilirubin 0.9 AST 40 H ALT 18 Alkaline Phosphatase 188 H Total Protein 7.7 Albumin 3.7 Microbiology 11/07/24 08:57 Sputum Sputum Culture - Final
--- NOTE | 2024-11-09 11:20 | PC.NURSE ---
To Dialysis treatment area @ 2166. Report given to JOSUE Regalado
[2024-11-09] MEDS: ALBUMIN HUMAN 25% 12.5 GM/50ML 50 ML IVPB (11:53)
[2024-11-09] MEDS: EPOETIN ALFA-EPBX 10,000 UNITS/ML VIAL 10000 UNITS IV PUSH (12:14)
--- NOTE | 2024-11-09 14:25 | PC.NURSE ---
Back from Hemodialysis @ 1410. Report from JOSUE Regalado at bedside. 2L of fluids removed
--- NOTE | 2024-11-09 15:59 | PM.IMPN ---
Progress Note: A&P Assessment and Plan (1) Acute and chronic respiratory failure: Code(s): J96.20 - Acute and chronic respiratory failure, unspecified whether with hypoxia or hypercapnia Status: Acute Assessment and Plan: Patient normally on 3L O2 chronically. Last evening, patient was restless and disoriented. She appeared more drowsy than her baseline. Glucose was normal. AB.24/68/126 on 3L Patient was started on BiPAP. She was moved to the IMU. Patient also had a 6 beat run nonsustained V-tach on telemetry. Repeat AB.31/57/69 on bipap Patient currently alert and oriented x4. Acute respiratory failure could be related to excessive oxygen suppressing her respiratory drive. She does not wear CPAP at home. Wean oxygen keep SpO2 greater than 92%. Monitor on telemetry. (2) Multifocal pneumonia: Code(s): J18.9 - Pneumonia, unspecified organism Status: Acute Assessment and Plan: Patient prsents with SOB. CXR shows CMG with moderate pulmonary vascular congestion and multifocal pneumonia suspected. She did not meet SIRS criteria but with temp to 100.7 and WBC to 12.3K. No lactic. Started on ceftriaxone and azithromycin on 07/ BCx NGTD x4 bottles Sputum Cx was not acceptable. MRSA nasal swab was negative. Stable on her 3L. Repeat CXR yesterday showing right basilar atelectasis vs PNA with pleural effusion and pulm edema. Continue abx. Continue mucinex. Not on scheduled bronchodilators. Dialysis to improve with fluid status (3) Chronic respiratory failure: Code(s): J96.10 - Chronic respiratory failure, unspecified whether with hypoxia or hypercapnia Status: Acute Assessment and Plan: As above Patient on her baseline supplemental O2 requirement at 3L NC Try to titrate down O2 to keep SpO2>92% (4) End stage renal disease: Code(s): N18.6 - End stage renal disease Status: Chronic Assessment and Plan: Patient with ESRD on HD (//Mon) CXR showing evidence of fluid overload. Nephrology consulted for inpatient dialysis and appreciate their input Trend electrolytes Dialysis to control fluid status (5) Type 2 diabetes mellitus with diabetic chronic kidney disease: Qualifiers: Diabetes mellitus press tender [employer] goods insulin use: without press [employer] goods use Chronic kidney disease stage: on chronic dialysis Qualified Code(s): E11.22 - Type 2 diabetes mellitus with diabetic chronic kidney disease; N18.6 - End stage renal disease; Z99.2 - Dependence on renal dialysis Code(s): E11.22 - Type 2 diabetes mellitus with diabetic chronic kidney disease Status: Chronic Assessment and Plan: A1c 5.3%. The patient's blood glucose was reviewed on 11/09 Glucose remains well controlled. Continue AccuCheks covering with sliding scale. Hypoglycemia protocol available as needed. Continue to monitor (6) Hypertension: Qualifiers: Hypertension type: secondary to other renal disorders Qualified Code(s): I15.1 - Hypertension secondary to other renal disorders Code(s): I10 - Essential (primary) hypertension Status: Chronic Assessment and Plan: Patient's blood pressure was reviewed on 11/09 Blood pressure remains well controlled. Will continue to monitor Plan DVT Prophylaxis: SCDs Code Status: full code Subjective Date/time seen: 11/09/24 15:59 Interval history: 79yo female with HTN, DM, ESRD on HD, chronic resp failure, hypothyroidism, gout, and depression presents here with shortness of breath. She uses wheelchair and a walker at home; she uses O2 at 3L at home since Jan 2024 when prescribed after pneumonia and hospital admission. Patient seen during HD. She feels okay. No CP or SOB. Denies feeling confused. Cough is nonproductive. She does not wear CPAP at home. Exam Narrative: AF 97.7 114/99 81 16 100% 3L Gen - NARD undergoing dialysis Chest - diffuse expir rhonchi CV - RRR S1/S2 with extra beats; Tele showing frequent PVCs. Abd - Soft, NT/ND, Positive BS Ext - No pedal edema. LUE fistual accessed Neuro - Alert and oriented x4. Psych - Nml mood and affect Skin - Warm and dry Objective Data Vital Signs Vital Signs: Vital Signs - 24 hr 11/08/24 16:00 11/08/24 20:00 11/08/24 20:00 Temperature Pulse Rate 82 77 Respiratory Rate Blood Pressure Pulse Oximetry Oxygen Delivery Nasal Cannula Oxygen Flow Rate 3 11/08/24 20:41 11/08/24 22:08 11/08/24 23:59 Temperature 99.9 F H 97.4 F L Pulse Rate 83 81 85 Respiratory Rate 16 16 16 Blood Pressure 77/40 L 106/52 L 105/54 L Pulse Oximetry 100 100 100 Oxygen Delivery Oxygen Flow Rate 11/09/24 00:00 11/09/24 00:00 11/09/24 00:45 Temperature Pulse Rate 80 82 83 Respiratory Rate 26 H 27 H Blood Pressure Pulse Oximetry 100 96 Oxygen Delivery Nasal Cannula BiPAP Oxygen Flow Rate 3 11/09/24 01:00 11/09/24 02:41 11/09/24 05:30 Temperature Pulse Rate 72 81 Respiratory Rate 24 H 27 H Blood Pressure Pulse Oximetry 93 92 Oxygen Delivery BiPAP BiPAP BiPAP Oxygen Flow Rate 11/09/24 05:45 11/09/24 06:00 11/09/24 06:27 Temperature 98.2 F Pulse Rate 96 80 85 Respiratory Rate 22 H Blood Pressure 121/73 Pulse Oximetry 96 Oxygen Delivery Oxygen Flow Rate 11/09/24 08:00 11/09/24 08:00 11/09/24 08:00 Temperature 97.8 F Pulse Rate 81 86 79 Respiratory Rate 22 H 22 H Blood Pressure 116/42 L Pulse Oximetry 100 95 Oxygen Delivery Nasal Cannula Oxygen Flow Rate 3 11/09/24 08:11 11/09/24 09:15 11/09/24 09:43 Temperature 98.4 F Pulse Rate 84 Respiratory Rate 24 H Blood Pressure 126/62 Pulse Oximetry 96 100 Oxygen Delivery Nasal Cannula Oxygen Flow Rate 3 3 11/09/24 09:43 11/09/24 09:45 11/09/24 10:00 Temperature Pulse Rate 82 86 83 Respiratory Rate Blood Pressure 124/60 118/62 106/54 L Pulse Oximetry Oxygen Delivery Oxygen Flow Rate 11/09/24 10:00 11/09/24 10:15 11/09/24 10:30 Temperature Pulse Rate 77 79 79 Respiratory Rate Blood Pressure 102/51 L 96/47 L Pulse Oximetry Oxygen Delivery Oxygen Flow Rate 11/09/24 10:45 11/09/24 11:00 11/09/24 11:03 Temperature Pulse Rate 77 78 81 Respiratory Rate Blood Pressure 92/45 L 88/43 L 76/45 L Pulse Oximetry Oxygen Delivery Oxygen Flow Rate 11/09/24 11:06 11/09/24 11:10 11/09/24 11:15 Temperature Pulse Rate 78 78 77 Respiratory Rate Blood Pressure 87/41 L 93/45 L 91/43 L Pulse Oximetry Oxygen Delivery Oxygen Flow Rate 11/09/24 11:30 11/09/24 11:45 11/09/24 12:00 Temperature Pulse Rate 74 77 75 Respiratory Rate Blood Pressure 91/45 L 101/44 L 103/47 L Pulse Oximetry Oxygen Delivery Oxygen Flow Rate 11/09/24 12:00 11/09/24 12:15 11/09/24 12:30 Temperature Pulse Rate 70 79 76 Respiratory Rate Blood Pressure 109/49 L 106/50 L Pulse Oximetry Oxygen Delivery Oxygen Flow Rate 11/09/24 12:34 11/09/24 12:45 11/09/24 13:00 Temperature Pulse Rate 74 72 80 Respiratory Rate Blood Pressure 114/54 L 98/46 L 108/48 L Pulse Oximetry Oxygen Delivery Oxygen Flow Rate 11/09/24 13:19 11/09/24 13:23 11/09/24 14:00 Temperature 97.9 F Pulse Rate 78 80 78 Respiratory Rate 20 Blood Pressure 117/46 L 100/55 L Pulse Oximetry 100 Oxygen Delivery Oxygen Flow Rate 11/09/24 14:21 Temperature 97.7 F Pulse Rate 81 Respiratory Rate 16 Blood Pressure 114/99 H Pulse Oximetry 100 Oxygen Delivery Oxygen Flow Rate Intake/Output Intake/Output: Intake & Output 11/06/24 11/07/24 11/08/24 11/09/24 23:59 23:59 23:59 23:59 Intake Total 300 300 390 240 Output Total 2300 2500 2000 Balance [phone] -[phone] -[id number] -[id number] Meds/Results Medications: Active Medications Generic Name Dose Route Start Last Admin Trade Name Freq PRN Reason Stop Dose Admin Acetaminophen 650 mg 11/06/24 18:18 Acetaminophen 325 Mg Tablet PO Q6H PRN Mild Pain (1-3) or Fever Albuterol/Ipratropium 3 ml 11/06/24 18:16 Ipratropium 0.5 Mg/Albuterol Sulfate 2.5 Mg Ampul.Neb 3 Ml INHALATION Q6HRT PRN Shortness Of Breath Or Wheezing Atorvastatin Calcium 40 mg 11/07/24 09:00 11/09/24 08:45 Atorvastatin 40 Mg Tablet PO 40 mg DAILY ARLYN Administration Benzonatate 100 mg 11/06/24 18:18 11/08/24 01:10 Benzonatate 100 Mg Capsule PO 100 mg TID PRN Administration Cough Calcium Acetate 667 mg 11/07/24 08:00 11/09/24 14:23 Calcium Acetate 667 Mg Tablet PO 667 mg TIDWM ARLYN Administration Dextrose 12.5 gm 11/06/24 22:44 Dextrose 50% 25 Gm/50 Ml Syringe IV PUSH PRN PRN Hypoglycemia Protocol Epoetin Vini-epbx 10,000 units 11/09/24 19:18 11/09/24 12:14 Epoetin Vini-Epbx 10,000 Units/Ml Vial IV PUSH 11/09/24 19:19 10,000 units ONCE ONE Administration Ferrous Sulfate 325 mg 11/07/24 09:00 11/09/24 08:45 Ferrous Sulfate [address] PO 325 mg DAILY ARLYN Administration Glucagon 1 mg 11/06/24 22:44 Glucagon For Inj 1 Mg Vial IM PRN PRN Hypoglycemia Protocol Glucose 15 gm 11/06/24 22:44 Glucose Oral Gel 15 Gm Of Glucse In 37.5 Gm Tube PO PRN PRN Hypoglycemia Protocol Guaifenesin 600 mg 11/06/24 21:00 11/09/24 08:45 Guaifenesin 12 Hr 600 Mg Tabcr PO 600 mg Q12HR ARLYN Administration Ceftriaxone Sodium 1 gm in 50 mls @ 100 mls/hr 11/07/24 18:00 11/08/24 17:48 Rocephin 1 Gm/Ns 50 Ml IVPB Infused Q24H ARLYN Infusion Azithromycin 500 mg in 250 mls @ 250 mls/hr 11/07/24 18:00 11/08/24 17:17 Zithromax IVPB 250 mls/hr Q24H ARLYN Administration Albumin Human 50 mls @ 999 mls/hr 11/06/24 18:51 11/09/24 11:53 Albutein IVPB 12/06/24 18:50 999 mls/hr Q10M PRN Administration HYPOTENSION Dextrose 1,000 mls @ 100 mls/hr 11/06/24 22:44 Dextrose 5% 1,000 Ml IVPB PRN PRN Hypoglycemia Protocol Insulin Aspart 2 - 5 units 11/07/24 08:00 11/09/24 13:42 Insulin Aspart (*Bkc) 100 Units/Ml SUB-Q Not Given TIDWM ARLYN Protocol Levothyroxine Sodium 112 mcg 11/07/24 06:30 11/09/24 05:41 Levothyroxine Sodium 112 Mcg Tablet PO 112 mcg DAILY@0630 ARLYN Administration Lidocaine/Prilocaine 1 each 11/09/24 06:00 11/09/24 08:45 Lidocaine/Prilocaine Cream 2.5-2.5% Tube TOPICAL 11/21/24 16:02 1 each ONCE PRN Administration Pain Magnesium Oxide 200 mg 11/07/24 09:00 11/09/24 08:45 Magnesium Oxide 200 Mg Tablet PO 200 mg DAILY ARLYN Administration Melatonin 20 mg 11/06/24 22:55 11/08/24 21:55 Melatonin 5 Mg Tablet PO 20 mg HS ARLYN Administration Mirtazapine 30 mg 11/06/24 22:45 11/08/24 21:55 Mirtazapine 30 Mg Tablet PO 30 mg QHS [facility] Administration Prochlorperazine Edisylate 10 mg 11/06/24 22:46 Prochlorperazine Edisylate 10 Mg/2 Ml Vial IV PUSH Q6H PRN Nausea And Vomiting Sertraline HCl 50 mg 11/07/24 09:00 11/09/24 08:45 Sertraline Hcl 50 Mg Tablet PO 50 mg DAILY [facility] Administration Sitagliptin Phosphate 100 mg 11/07/24 09:00 11/09/24 08:45 Sitagliptin Phosphate 100 Mg Tablet PO 100 mg QAM [facility] Administration Tramadol HCl 100 mg 11/06/24 22:43 Tramadol Hcl (*Crx) 50 Mg Tablet PO BID PRN Pain (Scale Score 4-6) Vitamin B Complex/Folic Acid 1 cap 11/07/24 09:00 11/09/24 08:45 Vitamin B Cmplx/Vit C/Folic Ac 1 Capsule PO 1 cap DAILY [facility] Administration Vitamin D 50 mcg 11/07/24 09:00 11/09/24 08:45 Cholecalciferol (Vitamin D3) 25 Mcg (1,000 Units) Tablet PO 50 mcg DAILY [facility] Administration Vitamin E 400 unit 11/07/24 09:00 11/09/24 08:46 Vitamin E 400 Unit Capsule PO Not Given DAILY ARLYN Zinc Sulfate 220 mg 11/07/24 09:00 11/09/24 08:46 Zinc Sulfate 220 Mg Capsule PO Not Given QAM [facility] Radiology Results: ITS Impressions Chest X-Ray 11/08/24 18:06 IMPRESSION: Right basilar atelectasis versus pneumonia with pleural effusion. Underlying pulmonary edema. Labs Labs: Laboratory Results - last 24 hr 0711/08/24 11/08/24 16:45 19:45 23:43 WBC RBC Hgb Hct MCV MCH MCHC RDW Plt Count MPV Puncture Site ABG pH ABG pCO2 ABG pO2 ABG PO2/FiO2 Ratio ABG HCO3 ABG O2 Saturation ABG O2 Content ABG Base Excess A-a Gradient Oxyhemoglobin Carboxyhemoglobin Methemoglobin Reduced Hemoglobin Total Hemoglobin O2 Delivery Device O2 Liters/Min Vent Rate FiO2 Expiratory Pressure Inspiratory Pressure Sodium Potassium Chloride Carbon Dioxide Anion Gap BUN Creatinine Estim Creat Clear Calc Estimated GFR Glucose POC Capillary Glucose 135 H 158 H 107 H Calcium Phosphorus Magnesium Total Bilirubin AST ALT Alkaline Phosphatase Total Protein Albumin 11/09/24 11/09/24 11/09/24 00:04 02:22 05:58 WBC 7.5 RBC 3.08 L Hgb 9.8 L Hct 33.4 L MCV 108.4 H MCH 31.8 MCHC 29.3 L RDW 15.8 H Plt Count 109 L MPV 11.2 H Puncture Site Right brachial Right brachial ABG pH 7.240 L* 7.313 L ABG pCO2 68.3 H* 57.0 H ABG pO2 125.9 H 69.2 L ABG PO2/FiO2 Ratio 3.93 2.77 ABG HCO3 28.6 H 28.2 H ABG O2 Saturation 97.8 92.0 L ABG O2 Content 15.0 L 13.3 L ABG Base Excess 0.1 1.3 A-a Gradient 22.4 41.4 Oxyhemoglobin 97.5 92.5 Carboxyhemoglobin 0.5 Methemoglobin 0.3 Reduced Hemoglobin 6.7 H Total Hemoglobin 10.8 L 10.2 L O2 Delivery Device Nasal cannula Non-invasive vent O2 Liters/Min 3.0 Not Reportable Vent Rate 20 FiO2 32 25 Expiratory Pressure 5 Inspiratory Pressure 10 Sodium 138 Potassium 4.6 Chloride 101 Carbon Dioxide 24 Anion Gap 13 H BUN 44 H D Creatinine 5.30 H Estim Creat Clear Calc Not Reportable Estimated GFR 8 L Glucose 88 POC Capillary Glucose Calcium 9.5 Phosphorus 5.0 H Magnesium 2.7 H Total Bilirubin 0.9 AST 40 H ALT 18 Alkaline Phosphatase 188 H Total Protein 7.7 Albumin 3.7 11/09/24 11/09/24 08:31 14:12 WBC RBC Hgb Hct MCV MCH MCHC RDW Plt Count MPV Puncture Site ABG pH ABG pCO2 ABG pO2 ABG PO2/FiO2 Ratio ABG HCO3 ABG O2 Saturation ABG O2 Content ABG Base Excess A-a Gradient Oxyhemoglobin Carboxyhemoglobin Methemoglobin Reduced Hemoglobin Total Hemoglobin O2 Delivery Device O2 Liters/Min Vent Rate FiO2 Expiratory Pressure Inspiratory Pressure Sodium Potassium Chloride Carbon Dioxide Anion Gap BUN Creatinine Estim Creat Clear Calc Estimated GFR Glucose POC Capillary Glucose 80 76 Calcium Phosphorus Magnesium Total Bilirubin AST ALT Alkaline Phosphatase Total Protein Albumin
[2024-11-09] MEDS: AZITHROMYCIN 250 MG TABLET PO (17:18)
[2024-11-09] MEDS: MELATONIN 5 MG TABLET 10 MG PO (22:27)
[2024-11-09] MEDS: MIRTAZAPINE 30 MG TABLET PO (22:28)
[2024-11-10] VITALS (16 sets, daily range): BP systolic 99–135; BP diastolic 52–93; PULSE 75–85; RESP 12–29; TEMP 36.6–36.9; O2SAT 95–100
[2024-11-10 04:46] LABS: Hematocrit 33.4 % (37.0-47.0); Hemoglobin 9.7 g/dL (12.0-15.0); Immature Platelet Fraction Pct 3.6 % (0.9-11.2); Mean Corpuscular HGB Conc 29.0 g/dl (32-36); Mean Corpuscular Hemoglobin 31.1 pg (26-34); Mean Corpuscular Volume 107.1 fl (80-100); Platelet Count Result 112 k/mm3 (150-375); Red Blood Count 3.12 M/mm3 (4.2-5.4); White Blood Count 5.5 K/mm3 (4.5-10.0)
[2024-11-10 05:08] LABS: Alanine Aminotransferase 17 U/L (6-35); Albumin Level 3.6 g/dL (3.5-5.1); Alkaline Phosphatase 214 U/L (38-126); Anion Gap 8 mmol/L (4-12); Aspartate Amino Transferase 38 U/L (14-36); Bilirubin,Total 0.7 mg/dL (0.2-1.3); Blood Urea Nitrogen 28 mg/dL (7-17); Calcium 9.6 mg/dL (8.4-10.2); Carbon Dioxide 31 mmol/L (22-30); Chloride 98 mmol/L (98-107); Estimated Glomerular Filt Rate 11; Glucose 87 mg/dL (65-110); Potassium 3.9 mmol/L (3.4-5.0); Sodium 137 mmol/L (137-145); Total Protein 7.5 g/dL (6.3-8.2)
[2024-11-10 05:19] LABS: Alveolar/Arterial O2 Gradient 36.3 mmHg; Fractional Inspired Oxygen 30 %; HCO3 ABG 27.9 mEq/l (22.0-26.0); Non-Invasive Expiratory Pressure 5 CMH2O; Non-Invasive Inspiratory Pressure 10 CMH2O; Non-Invasive Vent Rate 20 /MIN; Oxygen Content ABG 14.7 %vol (16.0-22.0); Oxygen Saturation ABG 98.0 % (95.0-100.0); PCO2 ABG 52.0 mmHg (35.0-45.0); PO2 ABG 116.5 mmHg (80.0-100.0); PO2 FiO2 Ratio Arterial Blood 3.88 %; Site Drawn RIGHT BRACHIAL
[2024-11-10 05:48] LABS: Thyroid Stimulating Hormone Reflex 2.570 uIU/mL (0.465-4.68)
[2024-11-10] MEDS: LEVOTHYROXINE SODIUM 112 MCG TABLET PO (05:57)
[2024-11-10 06:16] LABS: Vitamin B12 > 1000.0 pg/mL (239-931)
[2024-11-10] MEDS: VITAMIN E 400 UNIT CAPSULE PO (08:41)
[2024-11-10] MEDS: CHOLECALCIFEROL (VITAMIN D3) 25 MCG (1,000 UNITS) TABLET 50 MCG PO (08:41)
[2024-11-10] MEDS: FERROUS SULFATE 325 MG TABLET DR PO (08:41)
[2024-11-10] MEDS: MAGNESIUM OXIDE 200 MG TABLET PO (08:41)
[2024-11-10] MEDS: ATORVASTATIN 40 MG TABLET PO (08:41)
[2024-11-10] MEDS: VITAMIN B CMPLX/VIT C/FOLIC AC 1 CAPSULE 1 CAP PO (08:41)
[2024-11-10] MEDS: CALCIUM ACETATE 667 MG TABLET PO ×3 (08:41→17:00)
[2024-11-10] MEDS: guaiFENesin 12 HR 600 MG TABCR PO (08:41)
[2024-11-10] MEDS: ZINC SULFATE 220 MG CAPSULE PO (08:42)
[2024-11-10] MEDS: SERTRALINE HCL 50 MG TABLET PO (08:42)
--- NOTE | 2024-11-10 11:26 | P.PNNP_ITS ---
Progress Note: A&P Assessment and Plan (1) End stage renal disease: Code(s): N18.6 - End stage renal disease Status: Chronic Assessment and Plan: * HD yesterday * continue T/T/S dialysis schedule while hospitalized * follow electrolytes, volume status, and clearance (2) Acute on chronic hypoxic respiratory failure: Code(s): J96.21 - Acute and chronic respiratory failure with hypoxia Status: Acute Assessment and Plan: * as noted on presentation * remains on her chronic 3L supplemental oxygen at baseline * wean oxygen as tolerated to keep O2 saturations > 90% * multifactorial etiology: * chronic respiratory failure * pneumonia * pulmonary vascular congestion * volume overload * pulmonary HTN * s/p DUF session on 11/08 for further fluid removal * continue supportive therapy as outlined (3) Multifocal pneumonia: Code(s): J18.9 - Pneumonia, unspecified organism Status: Acute Assessment and Plan: * as noted by admission CXR: * redemonstration of significant cardiomegaly with moderate pulmonary vascular congestion and multifocal pneumonia suspected * follow culture data * on antibiotic therapy * PRN antitussives and nebulizer treatments (4) Anemia: Code(s): D64.9 - Anemia, unspecified Status: Chronic Assessment and Plan: * due to ESRD and likely worsened by acute infection * Epogen with HD * follow H/H (5) Hypertension: Qualifiers: Hypertension type: secondary to other renal disorders Qualified Code(s): I15.1 - Hypertension secondary to other renal disorders Code(s): I10 - Essential (primary) hypertension Status: Chronic Assessment and Plan: * reasonable control * follow trend of hemodynamics (6) Type 2 diabetes mellitus with diabetic polyneuropathy: Qualifiers: Diabetes mellitus middle or intermediate [employer] principal insulin use: without [place] use Q ualified Code(s): E11.42 - Type 2 diabetes mellitus with diabetic polyneuropathy Code(s): E11.42 - Type 2 diabetes mellitus with diabetic polyneuropathy Status: Chronic Assessment and Plan: * follow accu-cheks * glycemic control per hospitalists Will continue to follow. L Subjective Date/time seen: 11/10/24 11:26 Interval history: Follow-up for end stage renal disease on hemodialysis. Tolerated dialysis treatment yesterday with ~ 2L fluid removal (almost 4.5L negative since admission); respiratory status seems a bit better in comparison to admission; still with productive cough but no worse; no other acute issues/events overnight or earlier this morning. Exam 2 Narrative: General: somewhat ill-appearing elderly female in NAD Heart: normal S1 and S2; no rub Lungs: coarse breath sounds with a few bibasilar crackles Abdomen: soft, nontender, nondistended, positive bowel sounds Extremities: trace - 1+ bilateral edema (chronic) in LEs Skin: warm and intact Objective Data Vital Signs Vital Signs: Vital Signs Temp Pulse Resp BP Pulse Ox O2 Del Method O2 Flow Rate 11/10/24 10:00 83 11/10/24 08:00 76 11/10/24 08:00 99 Nasal Cannula 2 11/10/24 07:44 98.4 F 81 16 99/58 L 100 11/10/24 06:00 78 11/10/24 04:44 79 25 H 99 BiPAP 11/10/24 04:00 76 11/10/24 04:00 97.9 F 77 20 135/57 L 99 11/10/24 02:00 78 11/10/24 01:35 75 29 H 99 BiPAP 11/10/24 00:00 83 11/09/24 23:35 98.0 F 81 20 127/54 L 98 11/09/24 23:25 75 27 H 99 BiPAP 11/09/24 22:00 80 11/09/24 20:00 74 11/09/24 20:00 98.0 F 80 20 107/44 L 96 11/09/24 18:00 79 11/09/24 16:00 84 11/09/24 16:00 84 18 94 Nasal Cannula 3 11/09/24 16:00 98.5 F 77 16 119/73 100 11/09/24 14:21 97.7 F 81 16 114/99 H 100 11/09/24 14:00 78 11/09/24 13:23 97.9 F 80 20 100/55 L 100 11/09/24 13:19 78 117/46 L 11/09/24 13:00 80 108/48 L 11/09/24 12:45 72 98/46 L 11/09/24 12:34 74 114/54 L 11/09/24 12:30 76 106/50 L 11/09/24 12:15 79 109/49 L 11/09/24 12:00 70 11/09/24 12:00 75 103/47 L 11/09/24 11:45 77 101/44 L 11/09/24 11:30 74 91/45 L 11/09/24 11:15 77 91/43 L 11/09/24 11:10 78 93/45 L 11/09/24 11:06 78 87/41 L 11/09/24 11:03 81 76/45 L 11/09/24 11:00 78 88/43 L Intake/Output Intake/Output: Intake & Output 11/07/24 11/08/24 11/09/24 11/10/24 23:59 23:59 23:59 23:59 Intake Total 300 390 850 195 Output Total 2300 2500 1999 Balance -1999 195 Meds/Results Medications: Active Medications Generic Name Dose Route Start Last Admin Trade Name Freq PRN Reason Stop Dose Admin Acetaminophen 650 mg 11/06/24 18:18 Acetaminophen 325 Mg Tablet PO Q6H PRN Mild Pain (1-3) or Fever Albuterol/Ipratropium 3 ml 11/06/24 18:16 Ipratropium 0.5 Mg/Albuterol Sulfate 2.5 Mg Ampul.Neb 3 Ml INHALATION Q6HRT PRN Shortness Of Breath Or Wheezing Atorvastatin Calcium 40 mg 11/07/24 09:00 11/10/24 08:41 Atorvastatin 40 Mg Tablet PO 40 mg DAILY ARLYN Administration Azithromycin 250 mg 11/09/24 18:00 11/09/24 17:18 Azithromycin 250 Mg Tablet PO 11/10/24 18:01 250 mg QPM ARLYN Administration Calcium Acetate 667 mg 11/07/24 08:00 11/10/24 08:41 Calcium Acetate 667 Mg Tablet PO 667 mg TIDWM ARLYN Administration Dextrose 12.5 gm 11/06/24 22:44 Dextrose 50% 25 Gm/50 Ml Syringe IV PUSH PRN PRN Hypoglycemia Protocol Ferrous Sulfate 325 mg 11/07/24 09:00 11/10/24 08:41 Ferrous Sulfate [address] PO 325 mg DAILY ARLYN Administration Glucagon 1 mg 11/06/24 22:44 Glucagon For Inj 1 Mg Vial IM PRN PRN Hypoglycemia Protocol Glucose 15 gm 11/06/24 22:44 Glucose Oral Gel 15 Gm Of Glucse In 37.5 Gm Tube PO PRN PRN Hypoglycemia Protocol Guaifenesin 600 mg 11/06/24 21:00 11/10/24 08:41 Guaifenesin 12 Hr 600 Mg Tabcr PO 600 mg Q12HR ARLYN Administration Ceftriaxone Sodium 1 gm in 50 mls @ 100 mls/hr 11/07/24 18:00 11/09/24 17:19 Rocephin 1 Gm/Ns 50 Ml IVPB 50 mls/hr Q24H ARLYN Administration Albumin Human 50 mls @ 999 mls/hr 11/06/24 18:51 11/09/24 11:53 Albutein IVPB 12/06/24 18:50 999 mls/hr Q10M PRN Administration HYPOTENSION Dextrose 1,000 mls @ 100 mls/hr 11/06/24 22:44 Dextrose 5% 1,000 Ml IVPB PRN PRN Hypoglycemia Protocol Insulin Aspart 2 - 5 units 11/07/24 08:00 11/10/24 08:47 Insulin Aspart (*Bkc) 100 Units/Ml SUB-Q Not Given TIDWM ARLYN Protocol Levothyroxine Sodium 112 mcg 11/07/24 06:30 11/10/24 05:57 Levothyroxine Sodium 112 Mcg Tablet PO 112 mcg DAILY@0630 ARLYN Administration Lidocaine/Prilocaine 1 each 11/09/24 06:00 11/09/24 08:45 Lidocaine/Prilocaine Cream 2.5-2.5% Tube TOPICAL 11/21/24 16:02 1 each ONCE PRN Administration Pain Magnesium Oxide 200 mg 11/07/24 09:00 11/10/24 08:41 Magnesium Oxide 200 Mg Tablet PO 200 mg DAILY ARLYN Administration Melatonin 10 mg 11/09/24 21:50 11/09/24 22:27 Melatonin 5 Mg Tablet PO 10 mg HS ARLYN Administration Mirtazapine 30 mg 11/06/24 22:45 11/09/24 22:28 Mirtazapine 30 Mg Tablet PO 30 mg QHS ARLYN Administration Prochlorperazine Edisylate 10 mg 11/06/24 22:46 Prochlorperazine Edisylate 10 Mg/2 Ml Vial IV PUSH Q6H PRN Nausea And Vomiting Sertraline HCl 50 mg 11/07/24 09:00 11/10/24 08:42 Sertraline Hcl 50 Mg Tablet PO 50 mg DAILY ARLYN Administration Sitagliptin Phosphate 100 mg 11/07/24 09:00 11/10/24 08:41 Sitagliptin Phosphate 100 Mg Tablet PO 100 mg QAM ARLYN Administration Tramadol HCl 100 mg 11/06/24 22:43 Tramadol Hcl (*Crx) 50 Mg Tablet PO BID PRN Pain (Scale Score 4-6) Vitamin B Complex/Folic Acid 1 cap 11/07/24 09:00 11/10/24 08:41 Vitamin B Cmplx/Vit C/Folic Ac 1 Capsule PO 1 cap DAILY ARLYN Administration Vitamin D 50 mcg 11/07/24 09:00 11/10/24 08:41 Cholecalciferol (Vitamin D3) 25 Mcg (1,000 Units) Tablet PO 50 mcg DAILY ARLYN Administration Vitamin E 400 unit 11/07/24 09:00 11/10/24 08:41 Vitamin E 400 Unit Capsule PO 400 unit DAILY ARLYN Administration Zinc Sulfate 220 mg 11/07/24 09:00 11/10/24 08:42 Zinc Sulfate 220 Mg Capsule PO 220 mg QAM ARLYN Administration Radiology Results: ITS Impressions Chest X-Ray 11/08/24 18:06 IMPRESSION: Right basilar atelectasis versus pneumonia with pleural effusion. Underlying pulmonary edema. Labs Labs: Laboratory Tests 11/10/24 04:04 11/10/24 04:04 Calcium 9.6 Total Bilirubin 0.7 AST 38 H ALT 17 Alkaline Phosphatase 214 H Total Protein 7.5 Albumin 3.6 Vitamin B12 > 1000.0 H Folate 15.3 TSH (Reflex) 2.570
--- NOTE | 2024-11-10 12:27 | PM.IMPN ---
Progress Note: A&P Assessment and Plan (1) Acute and chronic respiratory failure: Code(s): J96.20 - Acute and chronic respiratory failure, unspecified whether with hypoxia or hypercapnia Status: Acute Assessment and Plan: Patient normally on 3L O2 chronically. Patient was restless and disoriented in the evening of 11/08. She appeared more drowsy than her baseline. Glucose was normal. AB.24/68/126 on 3L Patient was started on BiPAP. She was moved to the IMU. Patient also had a 6 beat run nonsustained V-tach on telemetry. Repeat AB.31/57/69 on bipap Patient much improved. Acute respiratory failure could be related to excessive oxygen suppressing her respiratory drive. She does not wear CPAP at home. Wean oxygen keep SpO2 greater than 92%. Able to wean down to 2L. Monitor on telemetry. Check apnea link (2) Multifocal pneumonia: Code(s): J18.9 - Pneumonia, unspecified organism Status: Acute Assessment and Plan: Patient presnts with SOB. CXR shows CMG with moderate pulmonary vascular congestion and multifocal pneumonia suspected. She did not meet SIRS criteria but with temp to 100.7 and WBC to 12.3K. No lactic ordered. Started on ceftriaxone and azithromycin on 11/06 BCx NGTD x4 bottles Sputum Cx was not acceptable. MRSA nasal swab was negative. Able to wean down to 2L. Repeat CXR yesterday showing right basilar atelectasis vs PNA with pleural effusion and pulm edema. Continue abx. Advance mucinex. Not on scheduled bronchodilators but not wheezing. Dialysis to improve with fluid status (3) Chronic respiratory failure: Code(s): J96.10 - Chronic respiratory failure, unspecified whether with hypoxia or hypercapnia Status: Acute Assessment and Plan: As above Patient on her baseline supplemental O2 requirement at 3L NC Continue to titrate down O2 to keep SpO2>92% (4) End stage renal disease: Code(s): N18.6 - End stage renal disease Status: Chronic Assessment and Plan: Patient with ESRD on HD (//Mon) CXR showing evidence of fluid overload. Nephrology consulted for inpatient dialysis and appreciate their input Dialysis everyday (11/07, 11/08, 11/09) with ~ 2L fluid removed yesterday (almost 4.7L negative since admission) Trend electrolytes Dialysis to control fluid status (5) Type 2 diabetes mellitus with diabetic chronic kidney disease: Qualifiers: Diabetes mellitus physician vice president insulin use: without residential use Chronic kidney disease stage: on chronic dialysis Qualified Code(s): E11.22 - Type 2 diabetes mellitus with diabetic chronic kidney disease; N18.6 - End stage renal disease; Z99.2 - Dependence on renal dialysis Code(s): E11.22 - Type 2 diabetes mellitus with diabetic chronic kidney disease Status: Chronic Assessment and Plan: A1c 5.3%. The patient's blood glucose was reviewed on 11/10 Glucose remains well controlled. Continue AccuCheks covering with sliding scale. Hypoglycemia protocol available as needed. Continue to monitor (6) Hypertension: Qualifiers: Hypertension type: secondary to other renal disorders Qualified Code(s): I15.1 - Hypertension secondary to other renal disorders Code(s): I10 - Essential (primary) hypertension Status: Chronic Assessment and Plan: Patient's blood pressure was reviewed on 11/10 Blood pressure remains well controlled. Will continue to monitor Plan DVT Prophylaxis: SCDs Code Status: full code Subjective Date/time seen: 11/10/24 12:27 Interval history: 79yo female with HTN, DM, ESRD on HD, chronic resp failure, hypothyroidism, gout, and depression presents here with shortness of breath. She uses wheelchair and a walker at home; she uses O2 at 3L at home since Jan 2024 when prescribed after pneumonia and hospital admission. SLept okay. Cough productive of whitish sputum. Did wear the CPAP last night. No CP. Exam Narrative: AF 98.1 114/67 80 12 95% 2L Gen - NARD Chest - clear bilaterally CV - irregular; Tele showing sinus with frequent PVCs. Abd - Soft, NT/ND, Positive BS Ext - No pedal edema. LUE fistula thrill and bruit Neuro - Alert and appropriate Psych - Nml mood and affect Skin - Warm and dry Objective Data Vital Signs Vital Signs: Vital Signs - 24 hr 11/09/24 12:30 11/09/24 12:34 11/09/24 12:45 Temperature Pulse Rate 76 74 72 Respiratory Rate Blood Pressure 106/50 L 114/54 L 98/46 L Pulse Oximetry Oxygen Delivery Oxygen Flow Rate 11/09/24 13:00 11/09/24 13:19 07/05/25 13:23 Temperature 97.9 F Pulse Rate 80 78 80 Respiratory Rate 20 Blood Pressure 108/48 L 117/46 L 100/55 L Pulse Oximetry 100 Oxygen Delivery Oxygen Flow Rate 11/09/24 14:00 11/09/24 14:21 11/09/24 16:00 Temperature 97.7 F 98.5 F Pulse Rate 78 81 77 Respiratory Rate 16 16 Blood Pressure 114/99 H 119/73 Pulse Oximetry 100 100 Oxygen Delivery Oxygen Flow Rate 11/09/24 16:00 11/09/24 16:00 11/09/24 18:00 Temperature Pulse Rate 84 84 79 Respiratory Rate 18 Blood Pressure Pulse Oximetry 94 Oxygen Delivery Nasal Cannula Oxygen Flow Rate 3 11/09/24 20:00 11/09/24 20:00 11/09/24 22:00 Temperature 98.0 F Pulse Rate 80 74 80 Respiratory Rate 20 Blood Pressure 107/44 L Pulse Oximetry 96 Oxygen Delivery Oxygen Flow Rate 11/09/24 23:25 11/09/24 23:35 11/10/24 00:00 Temperature 98.0 F Pulse Rate 75 81 83 Respiratory Rate 27 H 20 Blood Pressure 127/54 L Pulse Oximetry 99 98 Oxygen Delivery BiPAP Oxygen Flow Rate 11/10/24 01:35 11/10/24 02:00 11/10/24 04:00 Temperature 97.9 F Pulse Rate 75 78 77 Respiratory Rate 29 H 20 Blood Pressure 135/57 L Pulse Oximetry 99 99 Oxygen Delivery BiPAP Oxygen Flow Rate 11/10/24 04:00 11/10/24 04:44 11/10/24 06:00 Temperature Pulse Rate 76 79 78 Respiratory Rate 25 H Blood Pressure Pulse Oximetry 99 Oxygen Delivery BiPAP Oxygen Flow Rate 11/10/24 07:44 11/10/24 08:00 11/10/24 08:00 Temperature 98.4 F Pulse Rate 81 76 Respiratory Rate 16 Blood Pressure 99/58 L Pulse Oximetry 100 99 Oxygen Delivery Nasal Cannula Oxygen Flow Rate 2 11/10/24 10:00 11/10/24 11:46 Temperature 98.1 F Pulse Rate 83 80 Respiratory Rate 12 Blood Pressure 114/67 Pulse Oximetry 95 Oxygen Delivery Oxygen Flow Rate Intake/Output Intake/Output: Intake & Output 11/07/24 11/08/24 11/09/24 11/10/24 23:59 23:59 23:59 23:59 Intake Total 300 390 850 195 Output Total 2300 2500 1999 Balance -1999 2110 -1150 195 Meds/Results Medications: Active Medications Generic Name Dose Route Start Last Admin Trade Name Malina PRN Reason Stop Dose Admin Acetaminophen 650 mg 11/06/24 18:18 Acetaminophen 325 Mg Tablet PO Q6H PRN Mild Pain (1-3) or Fever Albuterol/Ipratropium 3 ml 11/06/24 18:16 Ipratropium 0.5 Mg/Albuterol Sulfate 2.5 Mg Ampul.Neb 3 Ml INHALATION Q6HRT PRN Shortness Of Breath Or Wheezing Atorvastatin Calcium 40 mg 11/07/24 09:00 11/10/24 08:41 Atorvastatin 40 Mg Tablet PO 40 mg DAILY ARLYN Administration Azithromycin 250 mg 11/09/24 18:00 11/09/24 17:18 Azithromycin 250 Mg Tablet PO 11/10/24 18:01 250 mg QPM ARLYN Administration Calcium Acetate 667 mg 11/07/24 08:00 11/10/24 11:15 Calcium Acetate 667 Mg Tablet PO 667 mg TIDWM ARLYN Administration Dextrose 12.5 gm 11/06/24 22:44 Dextrose 50% 25 Gm/50 Ml Syringe IV PUSH PRN PRN Hypoglycemia Protocol Ferrous Sulfate 325 mg 11/07/24 09:00 11/10/24 08:41 Ferrous Sulfate [address] PO 325 mg DAILY ARLYN Administration Glucagon 1 mg 11/06/24 22:44 Glucagon For Inj 1 Mg Vial IM PRN PRN Hypoglycemia Protocol Glucose 15 gm 11/06/24 22:44 Glucose Oral Gel 15 Gm Of Glucse In 37.5 Gm Tube PO PRN PRN Hypoglycemia Protocol Guaifenesin 600 mg 11/06/24 21:00 11/10/24 08:41 Guaifenesin 12 Hr 600 Mg Tabcr PO 600 mg Q12HR ARLYN Administration Ceftriaxone Sodium 1 gm in 50 mls @ 100 mls/hr 11/07/24 18:00 11/09/24 17:19 Rocephin 1 Gm/Ns 50 Ml IVPB 50 mls/hr Q24H ARLYN Administration Albumin Human 50 mls @ 999 mls/hr 11/06/24 18:51 11/09/24 11:53 Albutein IVPB 12/06/24 18:50 999 mls/hr Q10M PRN Administration HYPOTENSION Dextrose 1,000 mls @ 100 mls/hr 11/06/24 22:44 Dextrose 5% 1,000 Ml IVPB PRN PRN Hypoglycemia Protocol Insulin Aspart 2 - 5 units 11/07/24 08:00 11/10/24 08:47 Insulin Aspart (*Bkc) 100 Units/Ml SUB-Q Not Given TIDWM [facility] Protocol Levothyroxine Sodium 112 mcg 11/07/24 06:30 11/10/24 05:57 Levothyroxine Sodium 112 Mcg Tablet PO 112 mcg DAILY@0630 ARLYN Administration Lidocaine/Prilocaine 1 each 11/09/24 06:00 11/09/24 08:45 Lidocaine/Prilocaine Cream 2.5-2.5% Tube TOPICAL 11/21/24 16:02 1 each ONCE PRN Administration Pain Magnesium Oxide 200 mg 11/07/24 09:00 11/10/24 08:41 Magnesium Oxide 200 Mg Tablet PO 200 mg DAILY ARLYN Administration Melatonin 10 mg 11/09/24 21:50 11/09/24 22:27 Melatonin 5 Mg Tablet PO 10 mg HS ARLYN Administration Mirtazapine 30 mg 11/06/24 22:45 11/09/24 22:28 Mirtazapine 30 Mg Tablet PO 30 mg QHS ARLYN Administration Prochlorperazine Edisylate 10 mg 11/06/24 22:46 Prochlorperazine Edisylate 10 Mg/2 Ml Vial IV PUSH Q6H PRN Nausea And Vomiting Sertraline HCl 50 mg 11/07/24 09:00 11/10/24 08:42 Sertraline Hcl 50 Mg Tablet PO 50 mg DAILY ARLYN Administration Sitagliptin Phosphate 100 mg 11/07/24 09:00 11/10/24 08:41 Sitagliptin Phosphate 100 Mg Tablet PO 100 mg QAM ARLYN Administration Tramadol HCl 100 mg 11/06/24 22:43 Tramadol Hcl (*Crx) 50 Mg Tablet PO BID PRN Pain (Scale Score 4-6) Vitamin B Complex/Folic Acid 1 cap 11/07/24 09:00 11/10/24 08:41 Vitamin B Cmplx/Vit C/Folic Ac 1 Capsule PO 1 cap DAILY ARLYN Administration Vitamin D 50 mcg 11/07/24 09:00 11/10/24 08:41 Cholecalciferol (Vitamin D3) 25 Mcg (1,000 Units) Tablet PO 50 mcg DAILY ARLYN Administration Vitamin E 400 unit 11/07/24 09:00 11/10/24 08:41 Vitamin E 400 Unit Capsule PO 400 unit DAILY ARLYN Administration Zinc Sulfate 220 mg 11/07/24 09:00 11/10/24 08:42 Zinc Sulfate 220 Mg Capsule PO 220 mg QAM ARLYN Administration Radiology Results: ITS Impressions Chest X-Ray 11/08/24 18:06 IMPRESSION: Right basilar atelectasis versus pneumonia with pleural effusion. Underlying pulmonary edema. Labs Labs: Laboratory Results - last 24 hr 11/09/24 11/09/24 11/09/24 14:12 17:01 20:06 WBC RBC Hgb Hct MCV MCH MCHC RDW Plt Count MPV % Immature Plt Fraction Puncture Site ABG pH ABG pCO2 ABG pO2 ABG PO2/FiO2 Ratio ABG HCO3 ABG O2 Saturation ABG O2 Content ABG Base Excess A-a Gradient Oxyhemoglobin Total Hemoglobin O2 Delivery Device O2 Liters/Min Vent Rate FiO2 Expiratory Pressure Inspiratory Pressure Sodium Potassium Chloride Carbon Dioxide Anion Gap BUN Creatinine Estim Creat Clear Calc Estimated GFR Glucose POC Capillary Glucose 76 158 H 145 H Calcium Total Bilirubin AST ALT Alkaline Phosphatase Total Protein Albumin Vitamin B12 Folate TSH (Reflex) 11/10/24 11/10/24 11/10/24 04:04 04:58 07:27 WBC 5.5 RBC 3.12 L Hgb 9.7 L Hct 33.4 L MCV 107.1 H MCH 31.1 MCHC 29.0 L RDW 15.7 H Plt Count 112 L MPV 10.2 % Immature Plt Fraction 3.6 Puncture Site Right brachial ABG pH 7.348 L ABG pCO2 52.0 H ABG pO2 116.5 H ABG PO2/FiO2 Ratio 3.88 ABG HCO3 27.9 H ABG O2 Saturation 98.0 ABG O2 Content 14.7 L ABG Base Excess 1.7 A-a Gradient 36.3 Oxyhemoglobin 97.4 Total Hemoglobin 10.6 L O2 Delivery Device Non-invasive vent O2 Liters/Min Not Reportable Vent Rate 20 FiO2 30 Expiratory Pressure 5 Inspiratory Pressure 10 Sodium 137 Potassium 3.9 Chloride 98 Carbon Dioxide 31 H Anion Gap 8 BUN 28 H D Creatinine 3.91 H Estim Creat Clear Calc Not Reportable Estimated GFR 11 L Glucose 87 POC Capillary Glucose 141 H Calcium 9.6 Total Bilirubin 0.7 AST 38 H ALT 17 Alkaline Phosphatase 214 H Total Protein 7.5 Albumin 3.6 Vitamin B12 > 1000.0 H Folate 15.3 TSH (Reflex) 2.570 11/10/24 11:27 WBC RBC Hgb Hct MCV MCH MCHC RDW Plt Count MPV % Immature Plt Fraction Puncture Site ABG pH ABG pCO2 ABG pO2 ABG PO2/FiO2 Ratio ABG HCO3 ABG O2 Saturation ABG O2 Content ABG Base Excess A-a Gradient Oxyhemoglobin Total Hemoglobin O2 Delivery Device O2 Liters/Min Vent Rate FiO2 Expiratory Pressure Inspiratory Pressure Sodium Potassium Chloride Carbon Dioxide Anion Gap BUN Creatinine Estim Creat Clear Calc Estimated GFR Glucose POC Capillary Glucose 136 H Calcium Total Bilirubin AST ALT Alkaline Phosphatase Total Protein Albumin Vitamin B12 Folate TSH (Reflex)
[2024-11-10] MEDS: AZITHROMYCIN 250 MG TABLET PO (17:00)
--- NOTE | 2024-11-10 20:30 | ECG_ITS ---
Test Date: 2024-11-10 20:39:49 Measurements Intervals Forsan Rate: 75 P: 42 MO: 244 QRS: 18 QRSD: 181 T: 9 QT: 484 QTc: 542 Interpretive Statements SINUS RHYTHM WITH FIRST DEGREE AV BLOCK RIGHT BUNDLE BRANCH BLOCK [120+ ms QRS DURATION, UPRIGHT V1, 40+ ms S IN I/aVL/V4/V5/V6] Compared to ECG 11/06/2024 23:04:16 No significant changes Electronically Signed On 11-11-2024 22:30:57 CDT by Aaliyah Arita M.D.
[2024-11-10] MEDS: guaiFENesin 12 HR 600 MG TABCR 1200 MG PO (21:40)
[2024-11-10] MEDS: MELATONIN 5 MG TABLET 20 MG PO (21:41)
[2024-11-11] VITALS (12 sets, daily range): BP systolic 119–134; BP diastolic 46–85; PULSE 73–83; RESP 18–27; TEMP 36.6–36.7; O2SAT 90–100
[2024-11-11] MEDS: LEVOTHYROXINE SODIUM 112 MCG TABLET PO (06:01)
[2024-11-11 06:47] LABS: Hematocrit 32.7 % (37.0-47.0); Hemoglobin 9.7 g/dL (12.0-15.0); Mean Corpuscular HGB Conc 29.7 g/dl (32-36); Mean Corpuscular Hemoglobin 31.4 pg (26-34); Mean Corpuscular Volume 105.8 fl (80-100); Platelet Count Result 103 k/mm3 (150-375); Red Blood Count 3.09 M/mm3 (4.2-5.4); White Blood Count 5.6 K/mm3 (4.5-10.0)
[2024-11-11 06:58] LABS: Alanine Aminotransferase 17 U/L (6-35); Albumin Level 3.3 g/dL (3.5-5.1); Alkaline Phosphatase 190 U/L (38-126); Anion Gap 12 mmol/L (4-12); Aspartate Amino Transferase 30 U/L (14-36); Bilirubin,Total 1.0 mg/dL (0.2-1.3); Blood Urea Nitrogen 39 mg/dL (7-17); Calcium 10.0 mg/dL (8.4-10.2); Carbon Dioxide 26 mmol/L (22-30); Chloride 98 mmol/L (98-107); Estimated Glomerular Filt Rate 7; Glucose 100 mg/dL (65-110); Potassium 3.7 mmol/L (3.4-5.0); Sodium 136 mmol/L (137-145); Total Protein 7.0 g/dL (6.3-8.2)
[2024-11-11] MEDS: FERROUS SULFATE 325 MG TABLET DR PO (09:14)
[2024-11-11] MEDS: VITAMIN B CMPLX/VIT C/FOLIC AC 1 CAPSULE 1 CAP PO (09:14)
[2024-11-11] MEDS: ZINC SULFATE 220 MG CAPSULE PO (09:14)
[2024-11-11] MEDS: ATORVASTATIN 40 MG TABLET PO (09:14)
[2024-11-11] MEDS: SERTRALINE HCL 50 MG TABLET PO (09:15)
[2024-11-11] MEDS: guaiFENesin 12 HR 600 MG TABCR 1200 MG PO ×2 (09:15→21:01)
[2024-11-11] MEDS: VITAMIN E 400 UNIT CAPSULE PO (09:15)
[2024-11-11] MEDS: CHOLECALCIFEROL (VITAMIN D3) 25 MCG (1,000 UNITS) TABLET 50 MCG PO (09:15)
[2024-11-11] MEDS: MAGNESIUM OXIDE 200 MG TABLET PO (09:15)
[2024-11-11] MEDS: CALCIUM ACETATE 667 MG TABLET PO ×2 (09:15→17:24)
--- NOTE | 2024-11-11 10:15 | P.PNNP_ITS ---
Progress Note: A&P Assessment and Plan (1) End stage renal disease: Code(s): N18.6 - End stage renal disease Status: Chronic Assessment and Plan: * HD tomorrow * continue T/T/S dialysis schedule while hospitalized * follow electrolytes, volume status, and clearance (2) Acute on chronic hypoxic respiratory failure: Code(s): J96.21 - Acute and chronic respiratory failure with hypoxia Status: Acute Assessment and Plan: * as noted on presentation * remains on her chronic 3L supplemental oxygen at baseline * wean oxygen as tolerated to keep O2 saturations > 90% * multifactorial etiology: * chronic respiratory failure * pneumonia * pulmonary vascular congestion * volume overload * pulmonary HTN * s/p DUF session on 11/08 for further fluid removal * continue supportive therapy as outlined (3) Multifocal pneumonia: Code(s): J18.9 - Pneumonia, unspecified organism Status: Acute Assessment and Plan: * as noted by admission CXR: * redemonstration of significant cardiomegaly with moderate pulmonary vascular congestion and multifocal pneumonia suspected * follow culture data * on antibiotic therapy * PRN antitussives and nebulizer treatments (4) Anemia: Code(s): D64.9 - Anemia, unspecified Status: Chronic Assessment and Plan: * due to ESRD and likely worsened by acute infection * Epogen with HD * follow H/H (5) Hypertension: Qualifiers: Hypertension type: secondary to other renal disorders Qualified Code(s): I15.1 - Hypertension secondary to other renal disorders Code(s): I10 - Essential (primary) hypertension Status: Chronic Assessment and Plan: * reasonable control * follow trend of hemodynamics (6) Type 2 diabetes mellitus with diabetic polyneuropathy: Qualifiers: Diabetes mellitus usp insulin use: without asparagus buncher use Q ualified Code(s): E11.42 - Type 2 diabetes mellitus with diabetic polyneuropathy Code(s): E11.42 - Type 2 diabetes mellitus with diabetic polyneuropathy Status: Chronic Assessment and Plan: * follow accu-cheks * glycemic control per hospitalists Will continue to follow. L Subjective Date/time seen: 11/11/24 10:15 Interval history: Follow-up for end stage renal disease on hemodialysis. No apparent distress noted at this time; still has some shortness of breath and cough but improvement noted since admission; no other issues/events overnight or earlier this morning; no other acute complaints voiced. Exam 2 Narrative: General: somewhat ill-appearing elderly female in NAD Heart: normal S1 and S2; no rub Lungs: coarse breath sounds with a few bibasilar crackles Abdomen: soft, nontender, nondistended, positive bowel sounds Extremities: trace - 1+ bilateral edema (chronic) in LEs Skin: no rash Objective Data Vital Signs Vital Signs: Vital Signs Temp Pulse Resp BP Pulse Ox O2 Del Method O2 Flow Rate 11/11/24 10:14 Nasal Cannula 1 11/11/24 08:44 90 Nasal Cannula 1 11/11/24 08:00 97.8 F 79 18 123/46 L 96 11/11/24 00:00 82 11/10/24 23:08 98.2 F 85 22 H 106/64 96 11/10/24 22:40 96 Nasal Cannula 1 11/10/24 20:59 98.1 F 83 20 122/52 L 98 11/10/24 20:00 77 11/10/24 20:00 96 Nasal Cannula 1 11/10/24 16:00 81 11/10/24 16:00 98.2 F 82 24 H 129/93 H 97 Intake/Output Intake/Output: Intake & Output 11/08/24 11/09/24 11/10/24 11/11/24 23:59 23:59 23:59 23:59 Intake Total 390 900 685 530 Output Total 2500 2000 Balance -2110 -1100 685 530 Meds/Results Medications: Active Medications Generic Name Dose Route Start Last Admin Trade Name Freq PRN Reason Stop Dose Admin Acetaminophen 650 mg 11/06/24 18:18 Acetaminophen 325 Mg Tablet PO Q6H PRN Mild Pain (1-3) or Fever Albuterol/Ipratropium 3 ml 11/06/24 18:16 Ipratropium 0.5 Mg/Albuterol Sulfate 2.5 Mg Ampul.Neb 3 Ml INHALATION Q6HRT PRN Shortness Of Breath Or Wheezing Atorvastatin Calcium 40 mg 11/07/24 09:00 11/11/24 09:14 Atorvastatin 40 Mg Tablet PO 40 mg DAILY ARLYN Administration Calcium Acetate 667 mg 11/07/24 08:00 11/11/24 09:15 Calcium Acetate 667 Mg Tablet PO 667 mg TIDWM ARLYN Administration Dextrose 12.5 gm 11/06/24 22:44 Dextrose 50% 25 Gm/50 Ml Syringe IV PUSH PRN PRN Hypoglycemia Protocol Ferrous Sulfate 325 mg 11/07/24 09:00 11/11/24 09:14 Ferrous Sulfate [address] PO 325 mg DAILY ARLYN Administration Glucagon 1 mg 11/06/24 22:44 Glucagon For Inj 1 Mg Vial IM PRN PRN Hypoglycemia Protocol Glucose 15 gm 11/06/24 22:44 Glucose Oral Gel 15 Gm Of Glucse In 37.5 Gm Tube PO PRN PRN Hypoglycemia Protocol Guaifenesin 1,200 mg 11/10/24 21:00 11/11/24 09:15 Guaifenesin 12 Hr 600 Mg Tabcr PO 1,200 mg Q12HR ARLYN Administration Ceftriaxone Sodium 1 gm in 50 mls @ 100 mls/hr 11/07/24 18:00 11/10/24 17:02 Rocephin 1 Gm/Ns 50 Ml IVPB 50 mls/hr Q24H ARLYN Administration Albumin Human 50 mls @ 999 mls/hr 11/06/24 18:51 11/09/24 11:53 Albutein IVPB 12/06/24 18:50 999 mls/hr Q10M PRN Administration HYPOTENSION Dextrose 1,000 mls @ 100 mls/hr 11/06/24 22:44 Dextrose 5% 1,000 Ml IVPB PRN PRN Hypoglycemia Protocol Insulin Aspart 2 - 5 units 11/07/24 08:00 11/11/24 09:08 Insulin Aspart (*Bkc) 100 Units/Ml SUB-Q Not Given TIDWM ARLYN Protocol Levothyroxine Sodium 112 mcg 11/07/24 06:30 11/11/24 06:01 Levothyroxine Sodium 112 Mcg Tablet PO 112 mcg DAILY@0630 RALYN Administration Lidocaine/Prilocaine 1 each 11/09/24 06:00 11/09/24 08:45 Lidocaine/Prilocaine Cream 2.5-2.5% Tube TOPICAL 11/21/24 16:02 1 each ONCE PRN Administration Pain Magnesium Oxide 200 mg 11/07/24 09:00 11/11/24 09:15 Magnesium Oxide 200 Mg Tablet PO 200 mg DAILY ARLYN Administration Melatonin 20 mg 11/10/24 21:00 11/10/24 21:41 Melatonin 5 Mg Tablet PO 20 mg HS ARLYN Administration Olanzapine 5 mg 11/10/24 21:00 11/10/24 21:42 Olanzapine 5 Mg Tablet PO 5 mg HS ARLYN Administration Prochlorperazine Edisylate 10 mg 11/06/24 22:46 Prochlorperazine Edisylate 10 Mg/2 Ml Vial IV PUSH Q6H PRN Nausea And Vomiting Sertraline HCl 50 mg 11/07/24 09:00 11/11/24 09:15 Sertraline Hcl 50 Mg Tablet PO 50 mg DAILY ARLYN Administration Sitagliptin Phosphate 100 mg 11/07/24 09:00 11/11/24 09:15 Sitagliptin Phosphate 100 Mg Tablet PO 100 mg QAM ARLYN Administration Tramadol HCl 100 mg 11/06/24 22:43 Tramadol Hcl (*Crx) 50 Mg Tablet PO BID PRN Pain (Scale Score 4-6) Vitamin B Complex/Folic Acid 1 cap 11/07/24 09:00 11/11/24 09:14 Vitamin B Cmplx/Vit C/Folic Ac 1 Capsule PO 1 cap DAILY ARLYN Administration Vitamin D 50 mcg 11/07/24 09:00 11/11/24 09:15 Cholecalciferol (Vitamin D3) 25 Mcg (1,000 Units) Tablet PO 50 mcg DAILY ARLYN Administration Vitamin E 400 unit 11/07/24 09:00 11/11/24 09:15 Vitamin E 400 Unit Capsule PO 400 unit DAILY ARLYN Administration Zinc Sulfate 220 mg 11/07/24 09:00 11/11/24 09:14 Zinc Sulfate 220 Mg Capsule PO 220 mg QAM ARLYN Administration Radiology Results: ITS Impressions Chest X-Ray 11/08/24 18:06 IMPRESSION: Right basilar atelectasis versus pneumonia with pleural effusion. Underlying pulmonary edema. Upper Quadrant Ultrasound 11/10/24 15:21 IMPRESSION: Gallbladder not visualized, possibly secondary to cholecystectomy, correlate with surgical history. Hepatomegaly. Otherwise unremarkable right upper quadrant ultrasound findings. Labs Labs: Laboratory Tests 11/11/24 06:27 11/11/24 06:27 Calcium 10.0 Total Bilirubin 1.0 AST 30 ALT 17 Alkaline Phosphatase 190 H Total Protein 7.0 Albumin 3.3 L
--- NOTE | 2024-11-11 12:51 | PCOTNOTE ---
Attempted to see pt for OT evaluation however pt was eating at the time. Will continue to follow.
--- NOTE | 2024-11-11 18:56 | PM.IMPN ---
Progress Note: A&P Assessment and Plan (1) Acute and chronic respiratory failure: Code(s): J96.20 - Acute and chronic respiratory failure, unspecified whether with hypoxia or hypercapnia Status: Acute Assessment and Plan: Patient normally on 3L O2 chronically. Patient was restless and disoriented in the evening of 11/08. She appeared more drowsy than her baseline. Glucose was normal. AB.24/68/126 on 3L Patient was started on BiPAP. She was moved to the IMU. Patient also had a 6 beat run nonsustained V-tach on telemetry. Repeat AB.31/57/69 on bipap Patient much improved. Acute respiratory failure could be related to excessive oxygen suppressing her respiratory drive. She does not wear CPAP at home. Weaned oxygen to 1L now. Apnea link showing AHI 6 and RI 8. She spent 15 minutes with SpO2<88% while on 1L. Home O2 evaluation (2) Multifocal pneumonia: Code(s): J18.9 - Pneumonia, unspecified organism Status: Acute Assessment and Plan: Patient presnts with SOB. CXR shows CMG with moderate pulmonary vascular congestion and multifocal pneumonia suspected. She did not meet SIRS criteria but with temp to 100.7 and WBC to 12.3K. No lactic ordered. Started on ceftriaxone and azithromycin on 11/06 BCx NGTD x4 bottles Sputum Cx was not acceptable. MRSA nasal swab was negative. Able to wean down to 1L. Repeat CXR showing right basilar atelectasis vs PNA with pleural effusion and pulm edema. Continue abx. Continue mucinex. Not on scheduled bronchodilators but not wheezing. Dialysis to improve with fluid status (3) Chronic respiratory failure: Code(s): J96.10 - Chronic respiratory failure, unspecified whether with hypoxia or hypercapnia Status: Acute Assessment and Plan: As above Patient on her baseline supplemental O2 requirement at 3L NC Continue to titrate down O2 to keep SpO2>92% (4) End stage renal disease: Code(s): N18.6 - End stage renal disease Status: Chronic Assessment and Plan: Patient with ESRD on HD (//Mon) CXR showing evidence of fluid overload. Nephrology consulted for inpatient dialysis and appreciate their input Multiple dialysis treatments that have improved her hypoxia Trend electrolytes Dialysis to control fluid status (5) Type 2 diabetes mellitus with diabetic chronic kidney disease: Qualifiers: Diabetes mellitus retirement insulin use: without retirement use Chronic kidney disease stage: on chronic dialysis Qualified Code(s): E11.22 - Type 2 diabetes mellitus with diabetic chronic kidney disease; N18.6 - End stage renal disease; Z99.2 - Dependence on renal dialysis Code(s): E11.22 - Type 2 diabetes mellitus with diabetic chronic kidney disease Status: Chronic Assessment and Plan: A1c 5.3%. The patient's blood glucose was reviewed on 11/11 Glucose remains well controlled. Continue AccuCheks covering with sliding scale. Hypoglycemia protocol available as needed. Continue to monitor (6) Hypertension: Qualifiers: Hypertension type: secondary to other renal disorders Qualified Code(s): I15.1 - Hypertension secondary to other renal disorders Code(s): I10 - Essential (primary) hypertension Status: Chronic Assessment and Plan: Patient's blood pressure was reviewed on 11/11 Blood pressure remains well controlled. Will continue to monitor Plan DVT Prophylaxis: SCDs Code Status: full code Subjective Date/time seen: 11/11/24 18:56 Interval history: 79yo female with HTN, DM, ESRD on HD, chronic resp failure, hypothyroidism, gout, and depression presents here with shortness of breath. She uses wheelchair and a walker at home; she uses O2 at 3L at home since Jan 2024 when prescribed after pneumonia and hospital admission. No problems overnight. No CP. Feels SOB. Up to the chair. Lives with dtr, GD and GS. Cough productive of yellow/brown sputum. She has had occasional hemoptysis but not persistent. Exam Narrative: AF 97.9 129/56 77 22 97% 1L Gen - NARD Chest - right base crackles. CV - irregular +murmur Abd - Soft, NT/ND, Positive BS. reducible incisional hernias Ext - No pedal edema. LUE fistula thrill and bruit Neuro - Alert and appropriate Psych - Nml mood and affect Skin - Warm and dry Objective Data Vital Signs Vital Signs: Vital Signs - 24 hr 11/10/24 20:00 11/10/24 20:00 11/10/24 20:59 Temperature 98.1 F Pulse Rate 77 83 Respiratory Rate 20 Blood Pressure 122/52 L Pulse Oximetry 96 98 Oxygen Delivery Nasal Cannula Oxygen Flow Rate 1 Fraction of Inspired Oxygen 11/10/24 22:40 11/10/24 23:08 11/11/24 00:00 Temperature 98.2 F Pulse Rate 85 82 Respiratory Rate 22 H Blood Pressure 106/64 Pulse Oximetry 96 96 Oxygen Delivery Nasal Cannula Oxygen Flow Rate 1 Fraction of Inspired Oxygen 11/11/24 08:00 11/11/24 08:00 11/11/24 08:44 Temperature 97.8 F Pulse Rate 79 73 Respiratory Rate 18 Blood Pressure 123/46 L Pulse Oximetry 96 90 Oxygen Delivery Nasal Cannula Oxygen Flow Rate 1 Fraction of Inspired Oxygen 24 11/11/24 10:00 11/11/24 10:54 11/11/24 12:00 Temperature Pulse Rate 83 78 Respiratory Rate Blood Pressure Pulse Oximetry Oxygen Delivery Nasal Cannula Oxygen Flow Rate 1 Fraction of Inspired Oxygen 11/11/24 12:37 11/11/24 14:00 11/11/24 14:10 Temperature 97.9 F Pulse Rate 75 79 Respiratory Rate 22 H Blood Pressure 119/85 Pulse Oximetry 93 Oxygen Delivery Nasal Cannula Oxygen Flow Rate 1 Fraction of Inspired Oxygen 11/11/24 16:00 11/11/24 16:00 11/11/24 16:29 Temperature 97.9 F Pulse Rate 77 78 77 Respiratory Rate 22 H Blood Pressure 129/56 L Pulse Oximetry 97 Oxygen Delivery Oxygen Flow Rate Fraction of Inspired Oxygen Intake/Output Intake/Output: Intake & Output 11/08/24 11/09/24 11/10/24 11/11/24 23:59 23:59 23:59 23:59 Intake Total 390 737 320 6324 Output Total 2500 2000 0 Balance -2110 -9025 900 9828 Meds/Results Medications: Active Medications Generic Name Dose Route Start Last Admin Trade Name Freq PRN Reason Stop Dose Admin Acetaminophen 650 mg 11/06/24 18:18 Acetaminophen 325 Mg Tablet PO Q6H PRN Mild Pain (1-3) or Fever Albuterol/Ipratropium 3 ml 11/06/24 18:16 Ipratropium 0.5 Mg/Albuterol Sulfate 2.5 Mg Ampul.Neb 3 Ml INHALATION Q6HRT PRN Shortness Of Breath Or Wheezing Amoxicillin/Clavulanate Potassium 1 tablet 11/11/24 21:00 Amoxicillin/Clavulanate K 500-125 Mg Tab PO 11/13/24 09:01 Q12HR [facility] Atorvastatin Calcium 40 mg 11/07/24 09:00 11/11/24 09:14 Atorvastatin 40 Mg Tablet PO 40 mg DAILY ARLYN Administration Calcium Acetate 667 mg 11/07/24 08:00 11/11/24 17:24 Calcium Acetate 667 Mg Tablet PO 667 mg TIDWM ARLYN Administration Dextrose 12.5 gm 11/06/24 22:44 Dextrose 50% 25 Gm/50 Ml Syringe IV PUSH PRN PRN Hypoglycemia Protocol Ferrous Sulfate 325 mg 11/07/24 09:00 11/11/24 09:14 Ferrous Sulfate [address] PO 325 mg DAILY ARLYN Administration Glucagon 1 mg 11/06/24 22:44 Glucagon For Inj 1 Mg Vial IM PRN PRN Hypoglycemia Protocol Glucose 15 gm 11/06/24 22:44 Glucose Oral Gel 15 Gm Of Glucse In 37.5 Gm Tube PO PRN PRN Hypoglycemia Protocol Guaifenesin 1,200 mg 11/10/24 21:00 11/11/24 09:15 Guaifenesin 12 Hr 600 Mg Tabcr PO 1,200 mg Q12HR ARLYN Administration Albumin Human 50 mls @ 999 mls/hr 11/06/24 18:51 11/09/24 11:53 Albutein IVPB 12/06/24 18:50 999 mls/hr Q10M PRN Administration HYPOTENSION Dextrose 1,000 mls @ 100 mls/hr 11/06/24 22:44 Dextrose 5% 1,000 Ml IVPB PRN PRN Hypoglycemia Protocol Insulin Aspart 2 - 5 units 11/07/24 08:00 11/11/24 17:23 Insulin Aspart (*Bkc) 100 Units/Ml SUB-Q Not Given TIDWM ARLYN Protocol Levothyroxine Sodium 112 mcg 11/07/24 06:30 11/11/24 06:01 Levothyroxine Sodium 112 Mcg Tablet PO 112 mcg DAILY@0630 ARLYN Administration Lidocaine/Prilocaine 1 each 11/09/24 06:00 11/09/24 08:45 Lidocaine/Prilocaine Cream 2.5-2.5% Tube TOPICAL 11/21/24 16:02 1 each ONCE PRN Administration Pain Magnesium Oxide 200 mg 11/07/24 09:00 11/11/24 09:15 Magnesium Oxide 200 Mg Tablet PO 200 mg DAILY ARLYN Administration Melatonin 20 mg 11/10/24 21:00 11/10/24 21:41 Melatonin 5 Mg Tablet PO 20 mg HS ARLYN Administration Olanzapine 5 mg 11/10/24 21:00 11/10/24 21:42 Olanzapine 5 Mg Tablet PO 5 mg HS ARLYN Administration Prochlorperazine Edisylate 10 mg 11/06/24 22:46 Prochlorperazine Edisylate 10 Mg/2 Ml Vial IV PUSH Q6H PRN Nausea And Vomiting Sertraline HCl 50 mg 11/07/24 09:00 11/11/24 09:15 Sertraline Hcl 50 Mg Tablet PO 50 mg DAILY ARLYN Administration Sitagliptin Phosphate 100 mg 11/07/24 09:00 11/11/24 09:15 Sitagliptin Phosphate 100 Mg Tablet PO 100 mg QAM ARLYN Administration Tramadol HCl 100 mg 11/06/24 22:43 Tramadol Hcl (*Crx) 50 Mg Tablet PO BID PRN Pain (Scale Score 4-6) Vitamin B Complex/Folic Acid 1 cap 11/07/24 09:00 11/11/24 09:14 Vitamin B Cmplx/Vit C/Folic Ac 1 Capsule PO 1 cap DAILY ARLYN Administration Vitamin D 50 mcg 11/07/24 09:00 11/11/24 09:15 Cholecalciferol (Vitamin D3) 25 Mcg (1,000 Units) Tablet PO 50 mcg DAILY ARLYN Administration Vitamin E 400 unit 11/07/24 09:00 11/11/24 09:15 Vitamin E 400 Unit Capsule PO 400 unit DAILY ARLYN Administration Zinc Sulfate 220 mg 11/07/24 09:00 11/11/24 09:14 Zinc Sulfate 220 Mg Capsule PO 220 mg QAM ARLYN Administration Radiology Results: ITS Impressions Chest X-Ray 11/08/24 18:06 IMPRESSION: Right basilar atelectasis versus pneumonia with pleural effusion. Underlying pulmonary edema. Upper Quadrant Ultrasound 11/10/24 15:21 IMPRESSION: Gallbladder not visualized, possibly secondary to cholecystectomy, correlate with surgical history. Hepatomegaly. Otherwise unremarkable right upper quadrant ultrasound findings. Labs Labs: Laboratory Results - last 24 hr 11/10/24 11/11/24 11/11/24 20:14 06:27 07:09 WBC 5.6 RBC 3.09 L Hgb 9.7 L Hct 32.7 L MCV 105.8 H MCH 31.4 MCHC 29.7 L RDW 15.6 H Plt Count 103 L MPV 10.0 Sodium 136 L Potassium 3.7 Chloride 98 Carbon Dioxide 26 Anion Gap 12 BUN 39 H D Creatinine 5.74 H Estim Creat Clear Calc Not Reportable Estimated GFR 7 L Glucose 100 POC Capillary Glucose 199 H 94 Calcium 10.0 Total Bilirubin 1.0 AST 30 ALT 17 Alkaline Phosphatase 190 H Total Protein 7.0 Albumin 3.3 L 11/11/24 11/11/24 11:30 16:45 WBC RBC Hgb Hct MCV MCH MCHC RDW Plt Count MPV Sodium Potassium Chloride Carbon Dioxide Anion Gap BUN Creatinine Estim Creat Clear Calc Estimated GFR Glucose POC Capillary Glucose 155 H 121 H Calcium Total Bilirubin AST ALT Alkaline Phosphatase Total Protein Albumin
[2024-11-11] MEDS: MELATONIN 5 MG TABLET 20 MG PO (21:02)
[2024-11-12] VITALS (37 sets, daily range): BP systolic 97–140; BP diastolic 35–74; PULSE 63–118; RESP 18–29; TEMP 35.8–37; O2SAT 87–100
[2024-11-12 05:41] LABS: Hematocrit 32.1 % (37.0-47.0); Hemoglobin 9.6 g/dL (12.0-15.0); Immature Platelet Fraction Pct 2.6 % (0.9-11.2); Mean Corpuscular HGB Conc 29.9 g/dl (32-36); Mean Corpuscular Hemoglobin 31.4 pg (26-34); Mean Corpuscular Volume 104.9 fl (80-100); Platelet Count Result 95 k/mm3 (150-375); Red Blood Count 3.06 M/mm3 (4.2-5.4); White Blood Count 4.8 K/mm3 (4.5-10.0)
[2024-11-12] MEDS: LEVOTHYROXINE SODIUM 112 MCG TABLET PO (06:06)
[2024-11-12 06:09] LABS: Alanine Aminotransferase 18 U/L (6-35); Albumin Level 3.2 g/dL (3.5-5.1); Alkaline Phosphatase 176 U/L (38-126); Anion Gap 12 mmol/L (4-12); Aspartate Amino Transferase 37 U/L (14-36); Bilirubin,Total 1.3 mg/dL (0.2-1.3); Blood Urea Nitrogen 52 mg/dL (7-17); Calcium 10.3 mg/dL (8.4-10.2); Carbon Dioxide 26 mmol/L (22-30); Chloride 99 mmol/L (98-107); Estimated Glomerular Filt Rate 6; Glucose 83 mg/dL (65-110); Potassium 4.3 mmol/L (3.4-5.0); Sodium 137 mmol/L (137-145); Total Protein 6.9 g/dL (6.3-8.2)
[2024-11-12] MEDS: LIDOCAINE/PRILOCAINE CREAM 2.5-2.5% TUBE 1 EACH TOPICAL (07:52)
--- NOTE | 2024-11-12 09:14 | PCPTNOTE ---
Attempted to see patient for PT, however patient was out of the room for dialysis.
--- NOTE | 2024-11-12 10:15 | PM.PNNEP ---
Progress Note: A&P Assessment and Plan (1) End stage renal disease: Code(s): N18.6 - End stage renal disease Status: Chronic Assessment and Plan: HD today continue T/T/S dialysis schedule while hospitalized follow electrolytes, volume status, and clearance (2) Acute on chronic hypoxic respiratory failure: Code(s): J96.21 - Acute and chronic respiratory failure with hypoxia Status: Acute Assessment and Plan: as noted on presentation was on her chronic 3L supplemental oxygen at baseline on admission weaning oxygen as tolerated to keep O2 saturations > 90% down to 1L multifactorial etiology: chronic respiratory failure pneumonia pulmonary vascular congestion volume overload pulmonary HTN s/p DUF session on 11/08 for further fluid removal continue supportive therapy as outlined (3) Multifocal pneumonia: Code(s): J18.9 - Pneumonia, unspecified organism Status: Acute Assessment and Plan: as noted by admission CXR: redemonstration of significant cardiomegaly with moderate pulmonary vascular congestion and multifocal pneumonia suspected follow culture data - negative to date on antibiotic therapy PRN antitussives and nebulizer treatments (4) Anemia: Code(s): D64.9 - Anemia, unspecified Status: Chronic Assessment and Plan: due to ESRD and likely worsened by acute infection Epogen with HD follow H/H (5) Hypertension: Qualifiers: Hypertension type: secondary to other renal disorders Qualified Code(s): I15.1 - Hypertension secondary to other renal disorders Code(s): I10 - Essential (primary) hypertension Status: Chronic Assessment and Plan: reasonable control follow trend of hemodynamics (6) Type 2 diabetes mellitus with diabetic polyneuropathy: Qualifiers: Diabetes mellitus intermediate card tender insulin use: without intermediate card tender use Qualified Code(s): E11.42 - Type 2 diabetes mellitus with diabetic polyneuropathy Code(s): E11.42 - Type 2 diabetes mellitus with diabetic polyneuropathy Status: Chronic Assessment and Plan: follow accu-cheks glycemic control per hospitalists Will continue to follow. Subjective Date/time seen: 11/12/24 10:15 Interval history: Follow-up for end stage renal disease on hemodialysis. Tolerating dialysis treatment at the time of my visit (seen on HD at 10:05am); supplemental oxygen weaned down to 1L with acceptable O2 saturations; still reports some shortness of breath with productive cough but appears better; no other issues/events overnight or earlier this morning. Exam Narrative: General: somewhat ill-appearing elderly female in NAD Heart: normal S1 and S2; no rub Lungs: coarse breath sounds with a few bibasilar crackles Abdomen: soft, nontender, nondistended, positive bowel sounds Extremities: trace - 1+ bilateral edema (chronic) in LEs Skin: no nodules Objective Data Vital Signs Vital Signs: Vital Signs Temp Pulse Resp BP Pulse Ox O2 Del Method O2 Flow Rate 11/12/24 10:15 63 121/44 L 11/12/24 10:00 63 112/41 L 11/12/24 09:45 65 113/51 L 11/12/24 09:30 70 121/55 L 11/12/24 09:15 65 104/57 L 11/12/24 09:00 67 120/59 L 11/12/24 08:45 69 108/59 L 11/12/24 08:30 70 101/58 L 11/12/24 08:17 70 124/54 L 11/12/24 08:17 1 11/12/24 08:05 72 11/12/24 07:55 97.9 F 74 24 H 125/61 99 11/12/24 05:42 97.9 F 65 20 118/58 L 98 11/12/24 04:37 65 21 H 95 BiPAP 11/12/24 04:00 67 11/12/24 01:38 73 29 H 96 BiPAP 11/12/24 00:00 74 11/11/24 21:22 75 27 H 99 BiPAP 11/11/24 20:48 98.1 F 80 18 134/64 100 11/11/24 20:00 73 11/11/24 20:00 95 Nasal Cannula 1 11/11/24 16:29 77 11/11/24 16:00 97.9 F 78 22 H 129/56 L 97 11/11/24 16:00 77 11/11/24 14:10 Nasal Cannula 1 11/11/24 14:00 79 11/11/24 12:37 97.9 F 75 22 H 119/85 93 11/11/24 12:00 78 Intake/Output Intake/Output: Intake & Output 11/09/24 11/10/24 11/11/24 11/12/24 23:59 23:59 23:59 23:59 Intake Total 783 889 5639 Output Total 2000 0 Balance -5750 531 4789 Meds/Results Medications: Active Medications Generic Name Dose Route Start Last Admin Trade Name Freq PRN Reason Stop Dose Admin Acetaminophen 650 mg 11/06/24 18:18 Acetaminophen 325 Mg Tablet PO Q6H PRN Mild Pain (1-3) or Fever Albuterol/Ipratropium 3 ml 11/06/24 18:16 Ipratropium 0.5 Mg/Albuterol Sulfate 2.5 Mg Ampul.Neb 3 Ml INHALATION Q6HRT PRN Shortness Of Breath Or Wheezing Amoxicillin/Clavulanate Potassium 1 tablet 11/11/24 21:00 11/11/24 21:02 Amoxicillin/Clavulanate K 500-125 Mg Tab PO 11/13/24 09:01 1 tablet Q12HR ARLYN Administration Atorvastatin Calcium 40 mg 11/07/24 09:00 11/11/24 09:14 Atorvastatin 40 Mg Tablet PO 40 mg DAILY ARLYN Administration Calcium Acetate 667 mg 11/07/24 08:00 11/11/24 21:03 Calcium Acetate 667 Mg Tablet PO Not Given TIDWM ARLYN Dextrose 12.5 gm 11/06/24 22:44 Dextrose 50% 25 Gm/50 Ml Syringe IV PUSH PRN PRN Hypoglycemia Protocol Epoetin Vini-epbx 10,000 units 11/12/24 18:41 11/12/24 11:23 Epoetin Vini-Epbx 10,000 Units/Ml Vial IV PUSH 11/12/24 18:42 10,000 units ONCE ONE Administration Ferrous Sulfate 325 mg 11/07/24 09:00 11/11/24 09:14 Ferrous Sulfate [address] PO 325 mg DAILY ARLYN Administration Glucagon 1 mg 11/06/24 22:44 Glucagon For Inj 1 Mg Vial IM PRN PRN Hypoglycemia Protocol Glucose 15 gm 11/06/24 22:44 Glucose Oral Gel 15 Gm Of Glucse In 37.5 Gm Tube PO PRN PRN Hypoglycemia Protocol Guaifenesin 1,200 mg 11/10/24 21:00 11/11/24 21:01 Guaifenesin 12 Hr 600 Mg Tabcr PO 1,200 mg Q12HR ARLYN Administration Albumin Human 50 mls @ 999 mls/hr 11/06/24 18:51 11/09/24 11:53 Albutein IVPB 12/06/24 18:50 999 mls/hr Q10M PRN Administration HYPOTENSION Dextrose 1,000 mls @ 100 mls/hr 11/06/24 22:44 Dextrose 5% 1,000 Ml IVPB PRN PRN Hypoglycemia Protocol Insulin Aspart 2 - 5 units 11/07/24 08:00 11/11/24 17:23 Insulin Aspart (*Bkc) 100 Units/Ml SUB-Q Not Given TIDWM [facility] Protocol Levothyroxine Sodium 112 mcg 11/07/24 06:30 11/12/24 06:06 Levothyroxine Sodium 112 Mcg Tablet PO 112 mcg DAILY@0630 ARLYN Administration Lidocaine/Prilocaine 1 each 11/09/24 06:00 11/12/24 07:52 Lidocaine/Prilocaine Cream 2.5-2.5% Tube TOPICAL 11/21/24 16:02 1 each ONCE PRN Administration Pain Magnesium Oxide 200 mg 11/07/24 09:00 11/11/24 09:15 Magnesium Oxide 200 Mg Tablet PO 200 mg DAILY ARLYN Administration Melatonin 20 mg 11/10/24 21:00 11/11/24 21:02 Melatonin 5 Mg Tablet PO 20 mg HS ARLYN Administration Olanzapine 5 mg 11/10/24 21:00 11/11/24 21:02 Olanzapine 5 Mg Tablet PO 5 mg HS ARLYN Administration Prochlorperazine Edisylate 10 mg 11/06/24 22:46 Prochlorperazine Edisylate 10 Mg/2 Ml Vial IV PUSH Q6H PRN Nausea And Vomiting Sertraline HCl 50 mg 11/07/24 09:00 11/11/24 09:15 Sertraline Hcl 50 Mg Tablet PO 50 mg DAILY ARLYN Administration Sitagliptin Phosphate 100 mg 11/07/24 09:00 11/11/24 09:15 Sitagliptin Phosphate 100 Mg Tablet PO 100 mg QAM ARLYN Administration Tramadol HCl 100 mg 11/06/24 22:43 Tramadol Hcl (*Crx) 50 Mg Tablet PO BID PRN Pain (Scale Score 4-6) Vitamin B Complex/Folic Acid 1 cap 11/07/24 09:00 11/11/24 09:14 Vitamin B Cmplx/Vit C/Folic Ac 1 Capsule PO 1 cap DAILY ARLYN Administration Vitamin D 50 mcg 11/07/24 09:00 11/11/24 09:15 Cholecalciferol (Vitamin D3) 25 Mcg (1,000 Units) Tablet PO 50 mcg DAILY ARLYN Administration Vitamin E 400 unit 11/07/24 09:00 11/11/24 09:15 Vitamin E 400 Unit Capsule PO 400 unit DAILY ARLYN Administration Zinc Sulfate 220 mg 11/07/24 09:00 11/11/24 09:14 Zinc Sulfate 220 Mg Capsule PO 220 mg QAM ARLYN Administration Radiology Results: ITS Impressions Upper Quadrant Ultrasound 11/10/24 15:21 IMPRESSION: Gallbladder not visualized, possibly secondary to cholecystectomy, correlate with surgical history. Hepatomegaly. Otherwise unremarkable right upper quadrant ultrasound findings. Chest X-Ray 11/12/24 07:04 Impression: Extensive right lung pneumonia. Labs Labs: Laboratory Tests 11/12/24 05:28 11/12/24 05:28 Calcium 10.3 H Total Bilirubin 1.3 AST 37 H ALT 18 Alkaline Phosphatase 176 H Total Protein 6.9 Albumin 3.2 L Microbiology 11/06/24 21:34 Blood Blood Culture - Final 11/06/24 21:35 Blood Blood Culture - Final 11/06/24 17:47 Blood Blood Culture - Final 11/06/24 17:47 Blood Blood Culture - Final
[2024-11-12] MEDS: EPOETIN ALFA-EPBX 10,000 UNITS/ML VIAL 10000 UNITS IV PUSH (11:23)
[2024-11-12] MEDS: ATORVASTATIN 40 MG TABLET PO (12:32)
[2024-11-12] MEDS: CHOLECALCIFEROL (VITAMIN D3) 25 MCG (1,000 UNITS) TABLET 50 MCG PO (12:32)
[2024-11-12] MEDS: MAGNESIUM OXIDE 200 MG TABLET PO (12:32)
[2024-11-12] MEDS: SERTRALINE HCL 50 MG TABLET PO (12:32)
[2024-11-12] MEDS: ZINC SULFATE 220 MG CAPSULE PO (12:32)
[2024-11-12] MEDS: CALCIUM ACETATE 667 MG TABLET PO ×2 (12:32→17:34)
[2024-11-12] MEDS: guaiFENesin 12 HR 600 MG TABCR 1200 MG PO ×2 (12:32→20:56)
[2024-11-12] MEDS: FERROUS SULFATE 325 MG TABLET DR PO (12:32)
[2024-11-12] MEDS: VITAMIN E 400 UNIT CAPSULE PO (12:32)
[2024-11-12] MEDS: VITAMIN B CMPLX/VIT C/FOLIC AC 1 CAPSULE 1 CAP PO (12:32)
--- NOTE | 2024-11-12 14:51 | HOMEO2EVAL ---
Evaluation was performed at [facility] Home Oxygen Evaluation RC: Home Oxygen (O2) Evaluation Start: 11/11/24 18:58 Freq: ONCE Status: Active Protocol: RPE Activity Type Activity Date Activity User E-sign Co-sign Detail Recorded Client Recorded Date Recorded By Document 11/12/24 14:15 BARBARA [email or web address] 11/12/24 14:47 BARBARA Document 11/12/24 14:16 BARBARA [email or web address] 11/12/24 14:50 BARBARA Document 11/12/24 14:20 [email or web address] [email or web address] 11/12/24 14:47 BARBARA Document 11/12/24 14:22 [email or web address] [email or web address] 11/12/24 14:50 BARBARA Document 11/12/24 14:30 BARBARA [email or web address] 11/12/24 14:47 BARBARA 11/12/24 11/12/24 11/12/24 14:15 14:16 14:20 Home O2 Evaluation [Oxygen] -Test Phase Resting Resting Exercise -Oxygen Delivery Room Air Nasal Cannula Nasal Cannula -Oxygen Flow Rate (L/min) 1 1 [Pulse Oximetry] -Pulse Oximetry (90-100 %) 87 L 93 88 L [Pulse Rate] -Pulse Rate (60-100 beats/min) 100 118 H [Exercise] -Ambulation Distance (feet) 100 -Ambulation Distance (meters) 30.47 [Comments] -Home Oxygen Evaluation Comments Pt requires 1 liter resting and 2 liters with activity [Charges] -Evaluation Charges O2 Evaluation by Pulmonary 11/12/24 11/12/24 14:22 14:30 Home O2 Evaluation [Oxygen] -Test Phase Exercise Resting -Oxygen Delivery Nasal Cannula Nasal Cannula -Oxygen Flow Rate (L/min) 2 [Pulse Oximetry] -Pulse Oximetry (90-100 %) 92 93 [Pulse Rate] -Pulse Rate (60-100 beats/min) 86 [Exercise] -Ambulation Distance (feet) -Ambulation Distance (meters) [Comments] -Home Oxygen Evaluation Comments [Charges] -Evaluation Charges O2 Evaluation by Pulmonary
--- NOTE | 2024-11-12 14:53 | PCRCNOTE ---
Home O2 eval done, pt requires 1 l rest and 2 l activity. Pt has [facility], rep name Dominique # [phone]. Pt has all O2 equipment at home and tank for transport from family when she D/C to home.
--- NOTE | 2024-11-12 15:15 | PM.IMPN ---
Progress Note: A&P Assessment and Plan (1) Acute and chronic respiratory failure: Code(s): J96.20 - Acute and chronic respiratory failure, unspecified whether with hypoxia or hypercapnia Status: Acute Assessment and Plan: Patient normally on 3L O2 chronically. Patient was restless and disoriented in the evening of 11/08. She appeared more drowsy than her baseline. Glucose was normal. AB.24/68/126 on 3L Patient was started on BiPAP. She was moved to the IMU. Patient also had a 6 beat run nonsustained V-tach on telemetry. Repeat AB.31/57/69 on bipap Patient much improved. Acute respiratory failure could be related to excessive oxygen suppressing her respiratory drive. She does not wear CPAP at home. Weaned oxygen to 1L now. Apnea link showing AHI 6 and RI 8. She spent 15 minutes with SpO2<88% while on 1L. Home O2 evaluation showing she needs 1L at rest and 2L with activity. Family wanting patient seen by pulmonary. (2) Multifocal pneumonia: Code(s): J18.9 - Pneumonia, unspecified organism Status: Acute Assessment and Plan: Patient presnts with SOB. CXR shows CMG with moderate pulmonary vascular congestion and multifocal pneumonia suspected. She did not meet SIRS criteria but with temp to 100.7 and WBC to 12.3K. No lactic ordered. Started on ceftriaxone and azithromycin on 11/06 BCx NGTD x4 bottles Sputum Cx was not acceptable. MRSA nasal swab was negative. Able to wean down to 1L. Repeat CXR showing extensive right lung PNA. Changed to Augmentin. Continue mucinex. Dialysis to improve with fluid status (3) Chronic respiratory failure: Code(s): J96.10 - Chronic respiratory failure, unspecified whether with hypoxia or hypercapnia Status: Acute Assessment and Plan: As above Patient was on her baseline supplemental O2 requirement at 3L but felt excessive Continue to titrate down O2 to keep SpO2>92% (4) End stage renal disease: Code(s): N18.6 - End stage renal disease Status: Chronic Assessment and Plan: Patient with ESRD on HD (T//Mon) CXR showing PNA but also evidence of fluid overload. Nephrology consulted for inpatient dialysis and appreciate their input Multiple dialysis treatments that have improved her hypoxia Trend electrolytes Dialysis to control fluid status (5) Type 2 diabetes mellitus with diabetic chronic kidney disease: Qualifiers: Chronic kidney disease stage: on chronic dialysis Diabetes mellitus nursing home insulin use: without superintendent container terminal use Qualified Code(s): E11.22 - Type 2 diabetes mellitus with diabetic chronic kidney disease; N18.6 - End stage renal disease; Z99.2 - Dependence on renal dialysis Code(s): E11.22 - Type 2 diabetes mellitus with diabetic chronic kidney disease Status: Chronic Assessment and Plan: A1c 5.3%. The patient's blood glucose was reviewed on 11/12 Glucose remains well controlled. Continue AccuCheks covering with sliding scale. Hypoglycemia protocol available as needed. Continue to monitor (6) Hypertension: Qualifiers: Hypertension type: secondary to other renal disorders Qualified Code(s): I15.1 - Hypertension secondary to other renal disorders Code(s): I10 - Essential (primary) hypertension Status: Chronic Assessment and Plan: Patient's blood pressure was reviewed on 11/12 Blood pressure remains well controlled. Will continue to monitor Plan DVT Prophylaxis: SCDs Code Status: full code Subjective Date/time seen: 11/12/24 15:15 Interval history: 79yo female with HTN, DM, ESRD on HD, chronic resp failure, hypothyroidism, gout, and depression presents here with shortness of breath. She uses wheelchair and a walker at home; she uses O2 at 3L at home since Jan 2024 when prescribed after pneumonia and hospital admission. Slept okay. Cough productive of mostly yellow sputum but still complains of occasional hemoptysis. Exam Narrative: AF 97.7 140/58 86 20 93% 2L Gen - NARD currently undergoing HD Chest - right base crackles but clear anteriorly. CV - RRR S1/S2 Tele showing PVCs. Abd - Soft, NT/ND, Positive BS. reducible incisional hernias Ext - No pedal edema. LUE fistula ascessed Neuro - Alert and appropriate Psych - Nml mood and affect Skin - Warm and dry Objective Data Vital Signs Vital Signs: Vital Signs - 24 hr 11/11/24 16:00 11/11/24 16:00 11/11/24 16:29 Temperature 97.9 F Pulse Rate 77 78 77 Respiratory Rate 22 H Blood Pressure 129/56 L Pulse Oximetry 97 Oxygen Delivery Oxygen Flow Rate 11/11/24 20:00 11/11/24 20:00 11/11/24 20:48 Temperature 98.1 F Pulse Rate 73 80 Respiratory Rate 18 Blood Pressure 134/64 Pulse Oximetry 95 100 Oxygen Delivery Nasal Cannula Oxygen Flow Rate 1 11/11/24 21:22 11/12/24 00:00 11/12/24 01:38 Temperature Pulse Rate 75 74 73 Respiratory Rate 27 H 29 H Blood Pressure Pulse Oximetry 99 96 Oxygen Delivery BiPAP BiPAP Oxygen Flow Rate 11/12/24 04:00 11/12/24 04:37 11/12/24 05:42 Temperature 97.9 F Pulse Rate 67 65 65 Respiratory Rate 21 H 20 Blood Pressure 118/58 L Pulse Oximetry 95 98 Oxygen Delivery BiPAP Oxygen Flow Rate 11/12/24 07:55 11/12/24 08:05 11/12/24 08:17 Temperature 97.9 F Pulse Rate 74 72 Respiratory Rate 24 H Blood Pressure 125/61 Pulse Oximetry 99 Oxygen Delivery Oxygen Flow Rate 1 11/12/24 08:17 11/12/24 08:30 11/12/24 08:45 Temperature Pulse Rate 70 70 69 Respiratory Rate Blood Pressure 124/54 L 101/58 L 108/59 L Pulse Oximetry Oxygen Delivery Oxygen Flow Rate 11/12/24 09:00 11/12/24 09:15 11/12/24 09:30 Temperature Pulse Rate 67 65 70 Respiratory Rate Blood Pressure 120/59 L 104/57 L 121/55 L Pulse Oximetry Oxygen Delivery Oxygen Flow Rate 11/12/24 09:45 11/12/24 10:00 11/12/24 10:15 Temperature Pulse Rate 65 63 63 Respiratory Rate Blood Pressure 113/51 L 112/41 L 121/44 L Pulse Oximetry Oxygen Delivery Oxygen Flow Rate 11/12/24 10:30 11/12/24 10:45 11/12/24 11:00 Temperature Pulse Rate 65 67 70 Respiratory Rate Blood Pressure 113/57 L 112/56 L 127/61 Pulse Oximetry Oxygen Delivery Oxygen Flow Rate 11/12/24 11:15 11/12/24 11:30 11/12/24 11:49 Temperature Pulse Rate 63 66 67 Respiratory Rate Blood Pressure 109/48 L 109/52 L 109/52 L Pulse Oximetry Oxygen Delivery Oxygen Flow Rate 11/12/24 11:54 11/12/24 12:05 11/12/24 13:00 Temperature 97.7 F Pulse Rate 66 71 Respiratory Rate 20 Blood Pressure 140/58 L Pulse Oximetry 99 93 Oxygen Delivery Nasal Cannula Oxygen Flow Rate 1 11/12/24 14:15 11/12/24 14:16 11/12/24 14:20 Temperature Pulse Rate 100 118 H Respiratory Rate Blood Pressure Pulse Oximetry 87 L 93 88 L Oxygen Delivery Room Air Nasal Cannula Nasal Cannula Oxygen Flow Rate 1 1 11/12/24 14:22 11/12/24 14:30 Temperature Pulse Rate 86 Respiratory Rate Blood Pressure Pulse Oximetry 92 93 Oxygen Delivery Nasal Cannula Nasal Cannula Oxygen Flow Rate 2 Intake/Output Intake/Output: Intake & Output 11/09/24 11/10/24 11/11/24 11/12/24 23:59 23:59 23:59 23:59 Intake Total 091 553 7937 120 Output Total 2000 0 2000 Balance -9805 298 8321 -1880 Meds/Results Medications: Active Medications Generic Name Dose Route Start Last Admin Trade Name Freq PRN Reason Stop Dose Admin Acetaminophen 650 mg 11/06/24 18:18 Acetaminophen 325 Mg Tablet PO Q6H PRN Mild Pain (1-3) or Fever Albuterol/Ipratropium 3 ml 11/06/24 18:16 Ipratropium 0.5 Mg/Albuterol Sulfate 2.5 Mg Ampul.Neb 3 Ml INHALATION Q6HRT PRN Shortness Of Breath Or Wheezing Amoxicillin/Clavulanate Potassium 1 tablet 11/11/24 21:00 11/12/24 12:32 Amoxicillin/Clavulanate K 500-125 Mg Tab PO 11/13/24 09:01 1 tablet Q12HR ARLYN Administration Atorvastatin Calcium 40 mg 11/07/24 09:00 11/12/24 12:32 Atorvastatin 40 Mg Tablet PO 40 mg DAILY ARLYN Administration Calcium Acetate 667 mg 11/07/24 08:00 11/12/24 12:34 Calcium Acetate 667 Mg Tablet PO Not Given TIDWM ARLYN Dextrose 12.5 gm 11/06/24 22:44 Dextrose 50% 25 Gm/50 Ml Syringe IV PUSH PRN PRN Hypoglycemia Protocol Epoetin Vini-epbx 10,000 units 11/12/24 18:41 11/12/24 11:23 Epoetin Vini-Epbx 10,000 Units/Ml Vial IV PUSH 11/12/24 18:42 10,000 units ONCE ONE Administration Ferrous Sulfate 325 mg 11/07/24 09:00 11/12/24 12:32 Ferrous Sulfate [address] PO 325 mg DAILY ARLYN Administration Glucagon 1 mg 11/06/24 22:44 Glucagon For Inj 1 Mg Vial IM PRN PRN Hypoglycemia Protocol Glucose 15 gm 11/06/24 22:44 Glucose Oral Gel 15 Gm Of Glucse In 37.5 Gm Tube PO PRN PRN Hypoglycemia Protocol Guaifenesin 1,200 mg 11/10/24 21:00 11/12/24 12:32 Guaifenesin 12 Hr 600 Mg Tabcr PO 1,200 mg Q12HR ARLYN Administration Albumin Human 50 mls @ 999 mls/hr 11/06/24 18:51 11/09/24 11:53 Albutein IVPB 12/06/24 18:50 999 mls/hr Q10M PRN Administration HYPOTENSION Dextrose 1,000 mls @ 100 mls/hr 11/06/24 22:44 Dextrose 5% 1,000 Ml IVPB PRN PRN Hypoglycemia Protocol Insulin Aspart 2 - 5 units 11/07/24 08:00 11/12/24 13:03 Insulin Aspart (*Bkc) 100 Units/Ml SUB-Q Not Given TIDWM ARLYN Protocol Levothyroxine Sodium 112 mcg 11/07/24 06:30 11/12/24 06:06 Levothyroxine Sodium 112 Mcg Tablet PO 112 mcg DAILY@0630 ARLYN Administration Lidocaine/Prilocaine 1 each 11/09/24 06:00 11/12/24 07:52 Lidocaine/Prilocaine Cream 2.5-2.5% Tube TOPICAL 11/21/24 16:02 1 each ONCE PRN Administration Pain Magnesium Oxide 200 mg 11/07/24 09:00 11/12/24 12:32 Magnesium Oxide 200 Mg Tablet PO 200 mg DAILY ARLYN Administration Melatonin 20 mg 11/10/24 21:00 11/11/24 21:02 Melatonin 5 Mg Tablet PO 20 mg HS ARLYN Administration Olanzapine 5 mg 11/10/24 21:00 11/11/24 21:02 Olanzapine 5 Mg Tablet PO 5 mg HS ARLYN Administration Prochlorperazine Edisylate 10 mg 11/06/24 22:46 Prochlorperazine Edisylate 10 Mg/2 Ml Vial IV PUSH Q6H PRN Nausea And Vomiting Sertraline HCl 50 mg 11/07/24 09:00 11/12/24 12:32 Sertraline Hcl 50 Mg Tablet PO 50 mg DAILY ARLYN Administration Sitagliptin Phosphate 100 mg 11/07/24 09:00 11/12/24 12:32 Sitagliptin Phosphate 100 Mg Tablet PO 100 mg QAM ARLYN Administration Tramadol HCl 100 mg 11/06/24 22:43 Tramadol Hcl (*Crx) 50 Mg Tablet PO BID PRN Pain (Scale Score 4-6) Vitamin B Complex/Folic Acid 1 cap 11/07/24 09:00 11/12/24 12:32 Vitamin B Cmplx/Vit C/Folic Ac 1 Capsule PO 1 cap DAILY ARLYN Administration Vitamin D 50 mcg 11/07/24 09:00 11/12/24 12:32 Cholecalciferol (Vitamin D3) 25 Mcg (1,000 Units) Tablet PO 50 mcg DAILY ARLYN Administration Vitamin E 400 unit 11/07/24 09:00 11/12/24 12:32 Vitamin E 400 Unit Capsule PO 400 unit DAILY ARLYN Administration Zinc Sulfate 220 mg 11/07/24 09:00 11/12/24 12:32 Zinc Sulfate 220 Mg Capsule PO 220 mg QAM ARLYN Administration Radiology Results: ITS Impressions Upper Quadrant Ultrasound 11/10/24 15:21 IMPRESSION: Gallbladder not visualized, possibly secondary to cholecystectomy, correlate with surgical history. Hepatomegaly. Otherwise unremarkable right upper quadrant ultrasound findings. Chest X-Ray 11/12/24 07:04 Impression: Extensive right lung pneumonia. Labs Labs: Laboratory Results - last 24 hr 11/11/24 11/11/24 11/12/24 16:45 20:50 05:28 WBC 4.8 RBC 3.06 L Hgb 9.6 L Hct 32.1 L MCV 104.9 H MCH 31.4 MCHC 29.9 L RDW 15.7 H Plt Count 95 L MPV 10.2 % Immature Plt Fraction 2.6 Sodium 137 Potassium 4.3 Chloride 99 Carbon Dioxide 26 Anion Gap 12 BUN 52 H D Creatinine 6.77 H Estim Creat Clear Calc Not Reportable Estimated GFR 6 L Glucose 83 POC Capillary Glucose 121 H 137 H Calcium 10.3 H Total Bilirubin 1.3 AST 37 H ALT 18 Alkaline Phosphatase 176 H Total Protein 6.9 Albumin 3.2 L 11/12/24 13:03 WBC RBC Hgb Hct MCV MCH MCHC RDW Plt Count MPV % Immature Plt Fraction Sodium Potassium Chloride Carbon Dioxide Anion Gap BUN Creatinine Estim Creat Clear Calc Estimated GFR Glucose POC Capillary Glucose 73 Calcium Total Bilirubin AST ALT Alkaline Phosphatase Total Protein Albumin
[2024-11-12] MEDS: MELATONIN 5 MG TABLET 20 MG PO (20:56)
[2024-11-13] VITALS (15 sets, daily range): BP systolic 122–131; BP diastolic 52–58; PULSE 70–80; RESP 18–22; TEMP 36.4–36.6; O2SAT 92–100
[2024-11-13] MEDS: LEVOTHYROXINE SODIUM 112 MCG TABLET PO (05:45)
[2024-11-13 06:33] LABS: Alanine Aminotransferase 21 U/L (6-35); Albumin Level 3.3 g/dL (3.5-5.1); Alkaline Phosphatase 175 U/L (38-126); Anion Gap 7 mmol/L (4-12); Aspartate Amino Transferase 37 U/L (14-36); Bilirubin,Total 1.1 mg/dL (0.2-1.3); Blood Urea Nitrogen 26 mg/dL (7-17); Calcium 9.7 mg/dL (8.4-10.2); Carbon Dioxide 30 mmol/L (22-30); Chloride 103 mmol/L (98-107); Estimated Glomerular Filt Rate 11; Glucose 83 mg/dL (65-110); Potassium 4.4 mmol/L (3.4-5.0); Sodium 140 mmol/L (137-145); Total Protein 6.9 g/dL (6.3-8.2)
--- NOTE | 2024-11-13 07:04 | PM.CNPUL ---
Assessment and Plan Assessment and plan (1) Pneumonia: Code(s): J18.9 - Pneumonia, unspecified organism Status: Acute Assessment and Plan: Patient with a history of influenza a and COVID pneumonia on 06/13/2024 and is never made a complete clinical Recovery since then. She was required 3 L nasal cannula at rest, with activity and with sleep since then. She presents now with vomiting followed by shortness of breath, cough, fever, leukocytosis. she has been treated with ceftriaxone 2 he is 6 x5 days, azithromycin x5 days and Augmentin x2 days. She is unable to tell me if she is clinically any better. Her leukocytosis has resolved, she is afebrile and her oxygen requirements have improved. She has also been diuresed 4.5 L since admission with hemodialysis and ultrafiltration. 11/13/24: Patient tells me she is breathing better. She cannot quantitate how much better she is feeling. She does not know why she came to the hospital and does not remember having breathing issues when she presented to the hospital. She does states she has some shortness of breath at rest, cough with some phlegm production. Her white blood cell count is 4.8, creatinine is 3.94, serum bicarbonate is 30. Patient told me she could not tolerate the noninvasive ventilator and BiPAP settings last night and does not think she would be able to wear machine at home. Her procalcitonin is 1.0, her BNP is greater than 30,000. when I enter the room the patient was on 2 L with saturations 100%. I decreased her to room air and her saturations were 92%. COVID, influenza, RSV RT PCR assay negative. Later in the day CT scan of the chest showed right upper lobe peripheral nodular opacities, central consolidative infiltrates with patent airways and partial collapse of the right middle lobe and right lower lobe consolidative infiltrates. Patchy lingular infiltrates and consolidative peripheral infiltrates left lower lobe. Compared to 06/13/2024 the right upper lobe peripheral nodular opacities, right middle lobe consolidation and atelectasis have increased and the right lower lobe nodular infiltrates remain unchanged. The left lower lobe nodular infiltrates have improved and the left upper lobe infiltrates have improved. Plan: patient has completed 7 days of antibiotics and will watch her off antibiotics at this time. CT scan does not demonstrate any pleural effusion. CT scan does show dense consolidations and this may be related to current bacterial infection and or post COVID organizing pneumonia-interstitial lung disease. I have sent respiratory pathogen panel looking for additional infectious etiologies. Patient has a difficult time coughing and expectorating. Agree with guaifenesin 1200 mg p.o. q.12 hours, Cornet flutter valve, I will add DuoNebs q.6 hours and Mucomyst nebulizers q.6 hours to see if this can help her expectorate. I have sent respiratory pathogen panel looking for additional infectious etiologies. Patient should have a follow-up CT scan in about 6 weeks to follow these infiltrates. Will follow with you. (2) Respiratory failure with hypoxia and hypercapnia: Code(s): J96.91 - Respiratory failure, unspecified with hypoxia; J96.92 - Respiratory failure, unspecified with hypercapnia Status: Acute Assessment and Plan: Patient with chronic hypoxemic respiratory failure related to post COVID influenza infection in June of 2024. She tells me she was on 3 L nasal cannula at rest, with activity and with sleep. Patient has a blood gas on 11/06/2023 with pH of 7.34/57/60 7 on half a L nasal cannula. On 11/09/2024 patient had restlessness and drowsiness at with an ABG of 7.24/68/126 and was placed on BiPAP. Repeat BiPAP gas 2 hours and 15 minutes later 7.31/57/69. Patient wore BiPAP overnight on 11/09/2024 an ABG the morning of 11/10/2024 of 7.35/52/117. 11/10/2024: Overnight oximetry on 1 L nasal cannula oxygen with recording duration 6 hours and 31 minutes. Average saturation 95 %, low saturation 79%. Time with saturation less than or equal to 88% was 15 minutes, oxygen desaturation index 6.5. 11/12/2024: Home O2 assessment: Rest room air saturation 87%. Rest nasal cannula 1 L saturation 93%. Exercise nasal cannula 1 L saturation 88%. Exercise nasal cannula 2 L saturation 92%. 11/13/24: Patient told me she could not tolerate the noninvasive ventilator and BiPAP settings last night and does not think she would be able to wear machine at home. Plan: Goal saturation 90-94%. I will leave the patient off BiPAP for 24 hours and check a blood gas tomorrow morning to assess for chronic hypercarbic respiratory failure. I will perform an overnight oximetry on 2 L nasal cannula tonight. History of Present Illness History of Present Illness Consult date: 11/13/24 Chief complaint: pneumonia,fluid overload,end stage renal disease o Narrative: 11/13/2024: This is a new pulmonary consult for hypoxia. Patient previously seen in the Pulmonary Clinic as a new patient on 07/10/2024: This is the note. NEW: Gisele Centeno is here with her daughter, Gail, who lives with the patient along with Gail's children and grandchildren, 6 people total. Gisele is 78 years old, in a wheelchair, alert and oriented, provides a good history with assistance by Gail. Gisele uses a walker at home. She has been using supplemental O2 since Jan 2024 when she had pneumonia and was admitted to the hospital. First office visit, she is here in wheelchair, has a walker at home; she uses O2 at home since Jan 2024, was prescribed after pneumonia and hospital admission. She was admitted Jun 13, 2024 through the ED, had low oxygen saturation, had a (+) home test for influenza A on 06/10/2024; other family members also had influenza and COVID. On the day prior to admission on 06/12/2024 the patient is O2 saturation dropped to 79%. They increased her to 5 L. then at dialysis on 06/13/2024 she was again bumped up to 5 L. On admission RT PCR positive for influenza a and COVID. She had a dry cough but no fevers. She was on 3 L/min, CTA of chest - no PE, did reveal pulmonary edema and multifocal pneumonia. Cardiomegaly and enlargement of central pulmonary arteries consistent with pulmonary artery hypertension and unchanged mediastinal left supraclavicular lymphadenopathy. She has chronic thrombocytopenia in admission a platelet count of 57. EKG with out acute ischemia. Troponin 0.402 and then 0.331. Viral screens positive for influenza a and COVID 19. She is a never-smoker. 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 Her father was a light smoker. 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 Her smoked some. There is no family history of lung diseases. No one has asthma, lung cancer, or COPD. Vaccinations: had a flu shot, pneumonia, COVID booster, and shingles. She has not had an RSV vaccination. She has an oximeter at home, with O2 at 3 L, sat is 92%-95%. PMH: 5 Years on HD, Lydia, left arm fistula ; hypothyroidism, chronic hypoxic respiratory failure requiring 3 L nasal cannula continuously. current symptoms cough, sputum, sometimes, clear; She has mayberry a runny for 10 years, clear secretions. pets; [facility], 2 cats, no hx bird exposure. no chickens. Saturaiton today is 96% on 3 L, higher than goal of 90-94% using O2. Plan: Goal saturation 90-94. Overnight oximetry on 3 L, act Capella vibratory valve. Swallow evaluation. Cardiology evaluation would be helpful, she appears to have possible combination of breathing issues due to renal and cardiac involvement. 09/11/2024: Modified barium swallow: Impression: Patient tolerated regular consistency oral feedings in the upright position. 11/06/2024: Patient presented to the emergency department with shortness of breath, productive cough, worsening oxygenation compared to her baseline which is 3 L nasal cannula with rest, activity and sleep. White blood cell count was 10.6, creatinine 5.53, serum bicarbonate 28. CXR: Redemonstration of significant cardiomegaly with moderate pulmonary vascular congestion and multifocal pneumonia suspected. Patient was treated for bacterial pneumonia with ceftriaxone and azithromycin and for fluid overload with dialysis on 11/07/2024. Patient received ultrafiltration on 11/08, hemodialysis on 11/09. The evening of 7 5 patient had restlessness and drowsiness and an ABG on 3 L was 7.24/68/126 and was placed on BiPAP with repeat ABG of 7.31/57/69. Her oxygenation improved on 11/10 and she required 1 L nasal cannula. 11/10/2024 patient completed 5 days of azithromycin 11/12/2024: Patient had hemodialysis, required 1 L oxygen and her ceftriaxone Was changed to Augmentin. chest x-ray showed unchanged diffuse interstitial alveolar infiltrates in the right lung with possible effusion. 11/13/2024: Overall patient tells me she has never fully recovered from her COVID and influenza a infection on 06/10/2024. Prior to this infection she had no respiratory issues. Since then she has continued shortness of breath and dyspnea on exertion. Patient tells me she is breathing better. She cannot quantitate how much better she is feeling. She does not know why she came to the hospital and does not remember having breathing issues when she presented to the hospital. She does states she has some shortness of breath at rest, cough with some phlegm production. Her white blood cell count is 4.8, creatinine is 3.94, serum bicarbonate is 30. Patient told me she could not tolerate the noninvasive ventilator and BiPAP settings last night and does not think she would be able to wear machine at home. Her procalcitonin is 1.0, her BNP is greater than 30,000. when I enter the room the patient was on 2 L with saturations 100%. I decreased her to room air and her saturations were 92%. Later in the day CT scan of the chest showed right upper lobe peripheral nodular opacities, central consolidative infiltrates with patent airways and partial collapse of the right middle lobe and right lower lobe consolidative infiltrates. Patchy lingular infiltrates and consolidative peripheral infiltrates left lower lobe. Compared to 06/13/2024 the right upper lobe peripheral nodular opacities, right middle lobe consolidation and atelectasis have increased and the right lower lobe nodular infiltrates remain unchanged. The left lower lobe nodular infiltrates have improved and the left upper lobe infiltrates have improved. DATA: 11/13/2024: CT Scan of the Chest without Contrast: Clinical Indication: Pneumonia Technique: Contiguous sections were acquired throughout the chest without intravenous contrast. Dose reduction technique was used on this scan by utilizing automated exposure control and iterative reconstruction technique. The dose-length product (DLP) was 114.90 mGy-cm. COMPARISON: 06/13/2024 Findings: There is cardiomegaly with extensive atherosclerotic calcification of the aorta and coronary arteries. There is no evidence of pleural or pericardial effusion. There is patchy consolidation extensive involving the right lung. There is probable partial right middle lobe atelectasis. There is probable minimal atelectatic change at the lingula and the anterobasilar left lower lobe. Images through the upper abdomen reveal no abnormalities. Impression: Patchy consolidation extensively involving the right lung is most compatible with pneumonia. Partial right middle lobe atelectasis and mild atelectatic change at the left lung base. Cardiomegaly with atherosclerotic disease. * 11/06/2023 ABG on a half a liter O2; 7.33/57/66.8 /30/ 91.7% ; hemoglobin 10.5 g/dL * 06/25/24 CXR : Comparison to multiple prior studies sequentially, with oldest reviewed study dated 11/12/2023. Findings: Moderate cardiomegaly with interstitial edema. Enlarged pulmonary arteries consistent with pulmonary hypertension. There is atherosclerosis and ectasia of the aorta. No significant effusion. No pneumothorax. Impression: 1: Moderate cardiomegaly with interstitial edema. * 06/19/2024; discharged with Influenza A: COVID 19, acute on chronic respiratory failure, hypoxemia, multifocal pneumonia * 06/13/2024 CTA ; FINDINGS: No pulmonary embolism. Again seen is enlargement of the central pulmonary arteries consistent with pulmonary arterial hypertension. Scattered smooth septal line thickening in both lungs most prominent peripherally in the upper lungs consistent with mild pulmonary edema. Scattered patchy consolidation with air bronchograms in both lungs along with a few smaller more nodular appearing opacities with similar appearance but different distribution than on the prior study most consistent with multifocal pneumonia. There is associated scattered mucous plugging in the bronchi. No pleural effusion. Moderate cardiomegaly with right-sided predominance. Atherosclerotic coronary artery calcifications. Aortic valve calcific is. Thoracic aorta is normal in caliber. Unchanged mediastinal and supraclavicular lymphadenopathy which is likely reactive. Scattered hepatic and splenic calcifications consistent with old granulomatous disease. There is a small amount of perihepatic ascites. 2 cm left adrenal mass unchanged since 10/08/2017 most consistent with an adenoma. Moderate thoracic spondylosis with bridging osteophytes at multiple levels consistent with diffuse idiopathic skeletal hyperostosis (DISH). IMPRESSION: 1. No pulmonary embolism. 2. Combination of mild pulmonary edema and multifocal pneumonia. 3. Cardiomegaly and enlargement of the central pulmonary arteries consistent with pulmonary arterial hypertension. 4. Unchanged mediastinal and left supraclavicular lymphadenopathy which is likely reactive. 09/17/2010: CTA PULMONARY INDICATION: Shortness of breath There are no prior studies available for comparison. FINDINGS: Pulmonary arteries are enlarged. There are no pulmonary emboli. No thoracic aortic dissection. There is 4 chamber cardiomegaly. No pleural or pericardial effusions. Tracheobronchial tree is patent. Patchy mosaic attenuation which could be from expiratory phase of imaging. Small amount of bibasilar atelectasis. There is no mediastinal, hilar or axillary lymphadenopathy. Incidental 1.8 cm left adrenal gland adenoma. Mild dextroscoliosis. Cholelithiasis and gallbladder neck. IMPRESSION: 1. No pulmonary emboli. 2. Cardiomegaly. 3. Mosaic attenuation, probably expiratory phase of imaging. mild pulmonary edema also possible. 4. Cholelithiasis. 5. Left adrenal adenoma. 6. Enlarged pulmonary arteries probably indicating pulmonary arterial hypertension. Review of Systems Constitutional: Constitutional: Reports no additional constitutional complaints Eyes: Eyes: Reports no additional eye complaints ENT: Reports system reviewed and no additional complaints, except as documented Cardiovascular: Cardiovascular: Reports no additional cardiovascular complaints Respiratory: Respiratory: Reports no additional respiratory complaints Gastrointestinal: Gastrointestinal: Reports no additional gastrointestinal complaints Musculoskeletal: Musculoskeletal: Reports no additional musculoskeletal complaints Neurologic: Reports system reviewed and no additional complaints, except as documented Psychiatric: Psychiatric: Reports no additional psychiatric complaints Endocrine: Endocrine: Reports no additional endocrine complaints Hematologic/Lymphatic: Hematologic/Lymphatic: Reports no additional hematologic/lymphatic complaints Allergic/Immunologic: Allergic/Immunologic: Reports no additional allergic/immunologic complaints [facility] Past Medical History Medical History (Updated 11/13/24 @ 12:31 by Lucio Quintero MD) Chronic respiratory failure Type 2 diabetes mellitus with diabetic chronic kidney disease Hypertension Primary localized osteoarthritis of knees, bilateral Pneumonia Depression Hypothyroidism Gout Arthritis Nephrolithiasis Chronic kidney disease Surgical History Surgical History H/O inguinal hernia repair Hx of tonsillectomy Family History Family History Other Diabetes mellitus Heart disease Hypertension Social History Social History Social History: Patient lives with her daughter, grandson daughter's kids and her daughter daughters kids. Patient's did of diabetes in 1985. Patient wishes to be a full code does like her daughter to be her surrogate. She also does have 3 dogs and 2 cats that live with her as well. 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 Gender identity (if verbalized by the patient): Female Sexual Orientation (if Verbalized by the Patient): Straight or Heterosexual Spiritual care concerns: No Agree to blood products: Yes Meds Home Medications and Allergies Home Medications ?Medication ?Instructions ?Recorded ?Confirmed ?Type vitamin B complex and vitamin C 1 cap PO DAILY 12/04/21 11/06/24 History no.20-folic acid 1 mg capsule (Triphrocaps) cholecalciferol (vitamin D3) 50 50 mcg PO DAILY 01/11/22 11/06/24 History mcg (2,000 unit) capsule vitamin E (dl, acetate) 180 mg 180 mg PO DAILY 01/11/22 11/06/24 History (400 unit) capsule atorvastatin 40 mg tablet 40 mg PO DAILY 10/12/23 11/06/24 History calcium acetate(phosphat bind) 667 667 mg PO TIDWM #150 caps 05/06/24 11/06/24 Rx mg capsule tramadol 50 mg tablet 100 mg (2 x 50 mg) PO BID PRN Pain 07/02/24 11/06/24 Rx (Scale Score 4-6) #120 tabs levothyroxine 112 mcg tablet See Rx Instructions .Route 07/29/24 11/06/24 Rx .COMPLEX #90 tabs sertraline 50 mg tablet See Rx Instructions .Route 09/25/24 11/06/24 Rx .COMPLEX #90 tabs linagliptin 5 mg tablet (Tradjenta) See Rx Instructions .Route 10/01/24 11/06/24 Rx .COMPLEX #90 tabs mirtazapine 30 mg tablet See Rx Instructions .Route 10/28/24 11/06/24 Rx .COMPLEX #90 tabs ferrous sulfate 325 mg (65 mg 325 mg PO DAILY 11/06/24 11/06/24 History iron) tablet (Feosol) magnesium 250 mg tablet 250 mg PO DAILY 11/06/24 11/06/24 History melatonin 10 mg tablet 20 mg PO HS 11/06/24 11/06/24 History zinc 50 mg capsule 50 mg PO DAILY 11/06/24 11/06/24 History Allergies Allergy/AdvReac Type Severity Reaction Status Date / Time ibuprofen Allergy Unknown Abdominal Verified 11/13/24 12:39 Pain,Not Entered,Not Entered,Abdominal Pain Vital Signs Vital Signs - 24 hr 11/12/24 07:55 11/12/24 08:05 11/12/24 08:17 Temperature 36.6 C Pulse Rate 74 72 Respiratory Rate 24 H Blood Pressure 125/61 Pulse Oximetry 99 Oxygen Delivery Oxygen Flow Rate 1 11/12/24 08:17 11/12/24 08:30 11/12/24 08:45 Temperature Pulse Rate 70 70 69 Respiratory Rate Blood Pressure 124/54 L 101/58 L 108/59 L Pulse Oximetry Oxygen Delivery Oxygen Flow Rate 11/12/24 09:00 11/12/24 09:15 11/12/24 09:30 Temperature Pulse Rate 67 65 70 Respiratory Rate Blood Pressure 120/59 L 104/57 L 121/55 L Pulse Oximetry Oxygen Delivery Oxygen Flow Rate 11/12/24 09:45 11/12/24 10:00 11/12/24 10:15 Temperature Pulse Rate 65 63 63 Respiratory Rate Blood Pressure 113/51 L 112/41 L 121/44 L Pulse Oximetry Oxygen Delivery Oxygen Flow Rate 11/12/24 10:30 11/12/24 10:45 11/12/24 11:00 Temperature Pulse Rate 65 67 70 Respiratory Rate Blood Pressure 113/57 L 112/56 L 127/61 Pulse Oximetry Oxygen Delivery Oxygen Flow Rate 11/12/24 11:15 11/12/24 11:30 11/12/24 11:49 Temperature Pulse Rate 63 66 67 Respiratory Rate Blood Pressure 109/48 L 109/52 L 109/52 L Pulse Oximetry Oxygen Delivery Oxygen Flow Rate 11/12/24 11:54 11/12/24 12:05 11/12/24 13:00 Temperature 36.5 C Pulse Rate 66 71 Respiratory Rate 20 Blood Pressure 140/58 L Pulse Oximetry 99 93 Oxygen Delivery Nasal Cannula Oxygen Flow Rate 1 11/12/24 14:15 11/12/24 14:16 11/12/24 14:20 Temperature Pulse Rate 100 118 H Respiratory Rate Blood Pressure Pulse Oximetry 87 L 93 88 L Oxygen Delivery Room Air Nasal Cannula Nasal Cannula Oxygen Flow Rate 1 1 11/12/24 14:22 11/12/24 14:30 11/12/24 15:54 Temperature 35.8 C L Pulse Rate 86 86 Respiratory Rate 18 Blood Pressure 97/35 L Pulse Oximetry 92 93 89 L Oxygen Delivery Nasal Cannula Nasal Cannula Oxygen Flow Rate 2 11/12/24 16:05 11/12/24 16:25 11/12/24 16:25 Temperature Pulse Rate 77 Respiratory Rate Blood Pressure 126/74 Pulse Oximetry 100 Oxygen Delivery Oxygen Flow Rate 11/12/24 20:00 11/12/24 20:00 11/12/24 22:00 Temperature 36.1 C L Pulse Rate 77 74 Respiratory Rate 18 Blood Pressure 102/45 L Pulse Oximetry 94 100 Oxygen Delivery Nasal Cannula Oxygen Flow Rate 1 11/12/24 23:30 11/13/24 00:00 11/13/24 02:24 Temperature Pulse Rate 75 73 77 Respiratory Rate 25 H 22 H Blood Pressure Pulse Oximetry 96 95 Oxygen Delivery BiPAP BiPAP Oxygen Flow Rate 11/13/24 04:00 Temperature Pulse Rate 71 Respiratory Rate Blood Pressure Pulse Oximetry Oxygen Delivery Oxygen Flow Rate Exam Const: General: comfortable Orientation/consciousness: oriented to person, oriented to place and oriented to time HENMT: Head: normal to inspection Ears: hearing grossly normal bilaterally Eyes: General: appearance normal, both eyes and all related structures Neck: Neck: normal visual inspection Chest: Chest palpation & inspection: normal inspection of the chest Resp: Effort & Inspection: normal respiratory effort and able to speak in complete sentences Auscultation: crackles, no rales, no rhonchi, no wheezes and lung sounds not diminished Other: Diffuse crackles right lung Cardio: Jugular venous distension: no JVD GI: Inspection: normal to inspection GI Palp: No abdominal tenderness Skin: General skin exam: normal color Neuro: General: oriented to person, oriented to place and oriented to time Extrem: General: normal to inspection Psych: Appearance: grossly normal Results Laboratory Findings 11/12/24 05:28 11/13/24 05:12 ABG, PT/INR, D-dimer: ABG ABG pH 7.348 (7.350-7.450) L 11/10/24 04:58 ABG pCO2 52.0 mmHg (35.0-45.0) H 11/10/24 04:58 ABG pO2 116.5 mmHg (80.0-100.0) H 11/10/24 04:58 ABG O2 Saturation 98.0 % (95.0-100.0) 11/10/24 04:58 Abnormal lab findings: Abnormal Labs 11/06/24 11/07/24 11/07/24 16:05 05:28 20:51 WBC 10.6 H 12.3 H RBC 3.21 L 3.14 L Hgb 10.1 L 9.7 L Hct 33.7 L 33.4 L MCV 105.0 H 106.4 H MCHC 30.0 L 29.0 L RDW 15.6 H 15.8 H Plt Count 113 L D 101 L MPV 11.2 H Immature Gran % (Auto) 0.7 H Neut % (Auto) 87.4 H Lymph % (Auto) 5.7 L Lymph # (Auto) 0.70 L [place] # (Auto) 0.7 H Abs Immat Gran (auto) 0.08 H Absolute Neuts (auto) 10.8 H Neutrophils % (Manual) 86 H Lymphocytes % (Manual) 2.0 L Abs Neuts (Manual) 9.54 H Abs Lymphs (Manual) 0.21 L ABG pH ABG pCO2 ABG pO2 ABG HCO3 ABG O2 Saturation ABG O2 Content Reduced Hemoglobin Total Hemoglobin Sodium 136 L 136 L Potassium 5.2 H 5.5 H Chloride 96 L Carbon Dioxide Anion Gap BUN 51 H D 57 H Creatinine 5.53 H 6.01 H Estimated GFR 7 L 7 L Glucose 141 H POC Capillary Glucose 162 H Calcium Phosphorus 5.7 H Magnesium 2.8 H AST 44 H 38 H Alkaline Phosphatase 182 H 144 H Albumin Vitamin B12 11/08/24 11/08/24 11/08/24 16:45 19:45 23:43 WBC RBC Hgb Hct MCV MCHC RDW Plt Count MPV Immature Gran % (Auto) Neut % (Auto) Lymph % (Auto) Lymph # (Auto) [place] # (Auto) Abs Immat Gran (auto) Absolute Neuts (auto) Neutrophils % (Manual) Lymphocytes % (Manual) Abs Neuts (Manual) Abs Lymphs (Manual) ABG pH ABG pCO2 ABG pO2 ABG HCO3 ABG O2 Saturation ABG O2 Content Reduced Hemoglobin Total Hemoglobin Sodium Potassium Chloride Carbon Dioxide Anion Gap BUN Creatinine Estimated GFR Glucose POC Capillary Glucose 135 H 158 H 107 H Calcium Phosphorus Magnesium AST Alkaline Phosphatase Albumin Vitamin B12 11/09/24 11/09/24 11/09/24 00:04 02:22 05:58 WBC RBC 3.08 L Hgb 9.8 L Hct 33.4 L MCV 108.4 H MCHC 29.3 L RDW 15.8 H Plt Count 109 L MPV 11.2 H Immature Gran % (Auto) Neut % (Auto) Lymph % (Auto) Lymph # (Auto) [place] # (Auto) Abs Immat Gran (auto) Absolute Neuts (auto) Neutrophils % (Manual) Lymphocytes % (Manual) Abs Neuts (Manual) Abs Lymphs (Manual) ABG pH 7.240 L* 7.313 L ABG pCO2 68.3 H* 57.0 H ABG pO2 125.9 H 69.2 L ABG HCO3 28.6 H 28.2 H ABG O2 Saturation 92.0 L ABG O2 Content 15.0 L 13.3 L Reduced Hemoglobin 6.7 H Total Hemoglobin 10.8 L 10.2 L Sodium Potassium Chloride Carbon Dioxide Anion Gap 13 H BUN 44 H D Creatinine 5.30 H Estimated GFR 8 L Glucose POC Capillary Glucose Calcium Phosphorus 5.0 H Magnesium 2.7 H AST 40 H Alkaline Phosphatase 188 H Albumin Vitamin B12 11/09/24 11/09/24 11/10/24 17:01 20:06 04:04 WBC RBC 3.12 L Hgb 9.7 L Hct 33.4 L MCV 107.1 H MCHC 29.0 L RDW 15.7 H Plt Count 112 L MPV Immature Gran % (Auto) Neut % (Auto) Lymph % (Auto) Lymph # (Auto) [place] # (Auto) Abs Immat Gran (auto) Absolute Neuts (auto) Neutrophils % (Manual) Lymphocytes % (Manual) Abs Neuts (Manual) Abs Lymphs (Manual) ABG pH ABG pCO2 ABG pO2 ABG HCO3 ABG O2 Saturation ABG O2 Content Reduced Hemoglobin Total Hemoglobin Sodium Potassium Chloride Carbon Dioxide 31 H Anion Gap BUN 28 H D Creatinine 3.91 H Estimated GFR 11 L Glucose POC Capillary Glucose 158 H 145 H Calcium Phosphorus Magnesium AST 38 H Alkaline Phosphatase 214 H Albumin Vitamin B12 > 1000.0 H 11/10/24 11/10/24 11/10/24 04:58 07:27 11:27 WBC RBC Hgb Hct MCV MCHC RDW Plt Count MPV Immature Gran % (Auto) Neut % (Auto) Lymph % (Auto) Lymph # (Auto) [place] # (Auto) Abs Immat Gran (auto) Absolute Neuts (auto) Neutrophils % (Manual) Lymphocytes % (Manual) Abs Neuts (Manual) Abs Lymphs (Manual) ABG pH 7.348 L ABG pCO2 52.0 H ABG pO2 116.5 H ABG HCO3 27.9 H ABG O2 Saturation ABG O2 Content 14.7 L Reduced Hemoglobin Total Hemoglobin 10.6 L Sodium Potassium Chloride Carbon Dioxide Anion Gap BUN Creatinine Estimated GFR Glucose POC Capillary Glucose 141 H 136 H Calcium Phosphorus Magnesium AST Alkaline Phosphatase Albumin Vitamin B12 11/10/24 11/11/24 11/11/24 20:14 06:27 11:30 WBC RBC 3.09 L Hgb 9.7 L Hct 32.7 L MCV 105.8 H MCHC 29.7 L RDW 15.6 H Plt Count 103 L MPV Immature Gran % (Auto) Neut % (Auto) Lymph % (Auto) Lymph # (Auto) [place] # (Auto) Abs Immat Gran (auto) Absolute Neuts (auto) Neutrophils % (Manual) Lymphocytes % (Manual) Abs Neuts (Manual) Abs Lymphs (Manual) ABG pH ABG pCO2 ABG pO2 ABG HCO3 ABG O2 Saturation ABG O2 Content Reduced Hemoglobin Total Hemoglobin Sodium 136 L Potassium Chloride Carbon Dioxide Anion Gap BUN 39 H D Creatinine 5.74 H Estimated GFR 7 L Glucose POC Capillary Glucose 199 H 155 H Calcium Phosphorus Magnesium AST Alkaline Phosphatase 190 H Albumin 3.3 L Vitamin B12 11/11/24 11/11/24 11/12/24 16:45 20:50 05:28 WBC RBC 3.06 L Hgb 9.6 L Hct 32.1 L MCV 104.9 H MCHC 29.9 L RDW 15.7 H Plt Count 95 L MPV Immature Gran % (Auto) Neut % (Auto) Lymph % (Auto) Lymph # (Auto) [place] # (Auto) Abs Immat Gran (auto) Absolute Neuts (auto) Neutrophils % (Manual) Lymphocytes % (Manual) Abs Neuts (Manual) Abs Lymphs (Manual) ABG pH ABG pCO2 ABG pO2 ABG HCO3 ABG O2 Saturation ABG O2 Content Reduced Hemoglobin Total Hemoglobin Sodium Potassium Chloride Carbon Dioxide Anion Gap BUN 52 H D Creatinine 6.77 H Estimated GFR 6 L Glucose POC Capillary Glucose 121 H 137 H Calcium 10.3 H Phosphorus Magnesium AST 37 H Alkaline Phosphatase 176 H Albumin 3.2 L Vitamin B12 11/12/24 11/12/24 11/13/24 16:41 20:59 05:12 WBC RBC Hgb Hct MCV MCHC RDW Plt Count MPV Immature Gran % (Auto) Neut % (Auto) Lymph % (Auto) Lymph # (Auto) [place] # (Auto) Abs Immat Gran (auto) Absolute Neuts (auto) Neutrophils % (Manual) Lymphocytes % (Manual) Abs Neuts (Manual) Abs Lymphs (Manual) ABG pH ABG pCO2 ABG pO2 ABG HCO3 ABG O2 Saturation ABG O2 Content Reduced Hemoglobin Total Hemoglobin Sodium Potassium Chloride Carbon Dioxide Anion Gap BUN 26 H D Creatinine 3.94 H Estimated GFR 11 L Glucose POC Capillary Glucose 129 H 135 H Calcium Phosphorus Magnesium AST 37 H Alkaline Phosphatase 175 H Albumin 3.3 L Vitamin B12 Diagnostic Findings Additional studies: ITS Impressions Chest X-Ray 11/06/24 16:11 IMPRESSION: Redemonstration of significant cardiomegaly with moderate pulmonary vascular congestion and multifocal pneumonia suspected. Chest X-Ray 11/07/24 18:44 IMPRESSION: Increased opacification of the right hemithorax with moderate pulmonary vascular congestion. Chest X-Ray 11/08/24 18:06 IMPRESSION: Right basilar atelectasis versus pneumonia with pleural effusion. Underlying pulmonary edema. Upper Quadrant Ultrasound 11/10/24 15:21 IMPRESSION: Gallbladder not visualized, possibly secondary to cholecystectomy, correlate with surgical history. Hepatomegaly. Otherwise unremarkable right upper quadrant ultrasound findings. Chest X-Ray 11/12/24 07:04 Impression: Extensive right lung pneumonia. Chest CT 11/13/24 10:16 Impression: Patchy consolidation extensively involving the right lung is most compatible with pneumonia. Partial right middle lobe atelectasis and mild atelectatic change at the left lung base. Cardiomegaly with atherosclerotic disease.
[2024-11-13 08:24] LABS: NT Pro B Type Natriuretic Pept > 30000 pg/mL (19.9-100)
[2024-11-13 08:26] LABS: Procalcitonin 1.0 ng/mL
[2024-11-13 10:07] LABS: Influenza A QL RT-PCR Negative (Negative); Influenza B QL RT-PCR Negative (Negative); RSV RNA, RT-PCR Negative (Negative); SARS-CoV-2 RNA PCR Negative (Negative)
[2024-11-13] MEDS: guaiFENesin 12 HR 600 MG TABCR 1200 MG PO ×2 (10:29→20:53)
[2024-11-13] MEDS: SERTRALINE HCL 50 MG TABLET PO (10:29)
[2024-11-13] MEDS: FERROUS SULFATE 325 MG TABLET DR PO (10:29)
[2024-11-13] MEDS: ZINC SULFATE 220 MG CAPSULE PO (10:30)
[2024-11-13] MEDS: VITAMIN E 400 UNIT CAPSULE PO (10:30)
[2024-11-13] MEDS: CHOLECALCIFEROL (VITAMIN D3) 25 MCG (1,000 UNITS) TABLET 50 MCG PO (10:30)
[2024-11-13] MEDS: MAGNESIUM OXIDE 200 MG TABLET PO (10:30)
[2024-11-13] MEDS: CALCIUM ACETATE 667 MG TABLET PO ×3 (10:30→17:28)
[2024-11-13] MEDS: VITAMIN B CMPLX/VIT C/FOLIC AC 1 CAPSULE 1 CAP PO (10:30)
[2024-11-13] MEDS: ATORVASTATIN 40 MG TABLET PO (10:30)
--- NOTE | 2024-11-13 10:52 | PCNWS ---
Weekly nutritional screen. Patient is tolerating current diet with adequate intake. No weight loss reported. No nutritional needs at this time.
[2024-11-13] MEDS: IPRATROPIUM 0.5 MG/ALBUTEROL SULFATE 2.5 MG AMPUL.NEB 3 ML INHALATION ×2 (13:15→20:43)
[2024-11-13] MEDS: ACETYLCYSTEINE 20% INHAL SOLN 800 MG/4 ML VIAL 200 MG INHALATION ×2 (13:15→20:43)
--- NOTE | 2024-11-13 13:54 | P.PNNP_ITS ---
Progress Note: A&P Assessment and Plan (1) End stage renal disease: Code(s): N18.6 - End stage renal disease Status: Chronic Assessment and Plan: * HD tomorrow * continue T/T/S dialysis schedule while hospitalized * follow electrolytes, volume status, and clearance (2) Acute on chronic hypoxic respiratory failure: Code(s): J96.21 - Acute and chronic respiratory failure with hypoxia Status: Acute Assessment and Plan: * as noted on presentation * was on her chronic 3L supplemental oxygen at baseline on admission * weaning oxygen as tolerated to keep O2 saturations > 90% * down to 1L * multifactorial etiology: * chronic respiratory failure * pneumonia * pulmonary vascular congestion * volume overload * pulmonary HTN * s/p DUF session on 11/08 for further fluid removal * Pulmonary recommendations noted * continue supportive therapy as outlined (3) Multifocal pneumonia: Code(s): J18.9 - Pneumonia, unspecified organism Status: Acute Assessment and Plan: * as noted by admission CXR: * redemonstration of significant cardiomegaly with moderate pulmonary vascular congestion and multifocal pneumonia suspected * follow culture data - negative to date * on antibiotic therapy * PRN antitussives and nebulizer treatments (4) Anemia: Code(s): D64.9 - Anemia, unspecified Status: Chronic Assessment and Plan: * due to ESRD and likely worsened by acute infection * Epogen with HD * follow H/H (5) Hypertension: Qualifiers: Hypertension type: secondary to other renal disorders Qualified Code(s): I15.1 - Hypertension secondary to other renal disorders Code(s): I10 - Essential (primary) hypertension Status: Chronic Assessment and Plan: * reasonable control * follow trend of hemodynamics (6) Type 2 diabetes mellitus with diabetic polyneuropathy: Qualifiers: Diabetes mellitus oil heaterman insulin use: without skilled nursing use Q ualified Code(s): E11.42 - Type 2 diabetes mellitus with diabetic polyneuropathy Code(s): E11.42 - Type 2 diabetes mellitus with diabetic polyneuropathy Status: Chronic Assessment and Plan: * follow accu-cheks * glycemic control per hospitalists Will continue to follow. L Subjective Date/time seen: 11/13/24 13:54 Interval history: Follow-up for end stage renal disease on hemodialysis. Tolerated dialysis treatment yesterday without any issues or problems; seen by Pulmonary this AM with recommendations noted; breathing/respiratory status seems stable if not a bit better at the time of my visit; CT of chest done earlier today noted. Exam 2 Narrative: General: somewhat ill-appearing elderly female in NAD Heart: normal S1 and S2; no rub Lungs: coarse breath sounds; decreased at the bases Abdomen: soft, nontender, nondistended, positive bowel sounds Extremities: trace - 1+ bilateral edema (chronic) in LEs Skin: warm and dry Objective Data Vital Signs Vital Signs: Vital Signs Temp Pulse Resp BP Pulse Ox O2 Del Method O2 Flow Rate 11/13/24 13:20 80 20 11/13/24 13:10 77 20 11/13/24 12:05 78 11/13/24 10:38 93 Nasal Cannula 1 11/13/24 08:04 70 11/13/24 07:16 92 Nasal Cannula 1 11/13/24 06:00 97.8 F 72 18 122/58 L 100 11/13/24 04:00 71 11/13/24 02:24 77 22 H 95 BiPAP 11/13/24 00:00 73 11/12/24 23:30 75 25 H 96 BiPAP 11/12/24 22:00 97.0 F L 74 18 102/45 L 100 11/12/24 20:00 77 11/12/24 20:00 94 Nasal Cannula 1 Intake/Output Intake/Output: Intake & Output 11/10/24 11/11/24 11/12/24 11/13/24 23:59 23:59 23:59 23:59 Intake Total 685 1795 753 1966 Output Total 0 2000 Balance 685 1170 -1560 1100 Meds/Results Medications: Active Medications Generic Name Dose Route Start Last Admin Trade Name Freq PRN Reason Stop Dose Admin Acetaminophen 650 mg 11/06/24 18:18 Acetaminophen 325 Mg Tablet PO Q6H PRN Mild Pain (1-3) or Fever Acetylcysteine 200 mg 11/13/24 14:00 11/13/24 13:15 Acetylcysteine 20% Inhal Soln 800 Mg/4 Ml Vial INHALATION 200 mg Q6HRT ARLYN Administration Albuterol/Ipratropium 3 ml 11/06/24 18:16 Ipratropium 0.5 Mg/Albuterol Sulfate 2.5 Mg Ampul.Neb 3 Ml INHALATION Q6HRT PRN Shortness Of Breath Or Wheezing Albuterol/Ipratropium 3 ml 11/13/24 14:00 11/13/24 13:15 Ipratropium 0.5 Mg/Albuterol Sulfate 2.5 Mg Ampul.Neb 3 Ml INHALATION 3 ml Q6HRT ARLYN Administration Atorvastatin Calcium 40 mg 11/07/24 09:00 11/13/24 10:30 Atorvastatin 40 Mg Tablet PO 40 mg DAILY ARLYN Administration Calcium Acetate 667 mg 11/07/24 08:00 11/13/24 17:28 Calcium Acetate 667 Mg Tablet PO 667 mg TIDWM ARLYN Administration Dextrose 12.5 gm 11/06/24 22:44 Dextrose 50% 25 Gm/50 Ml Syringe IV PUSH PRN PRN Hypoglycemia Protocol Ferrous Sulfate 325 mg 11/07/24 09:00 11/13/24 10:29 Ferrous Sulfate [address] PO 325 mg DAILY ARLYN Administration Glucagon 1 mg 11/06/24 22:44 Glucagon For Inj 1 Mg Vial IM PRN PRN Hypoglycemia Protocol Glucose 15 gm 11/06/24 22:44 Glucose Oral Gel 15 Gm Of Glucse In 37.5 Gm Tube PO PRN PRN Hypoglycemia Protocol Guaifenesin 1,200 mg 11/10/24 21:00 11/13/24 10:29 Guaifenesin 12 Hr 600 Mg Tabcr PO 1,200 mg Q12HR ARLYN Administration Albumin Human 50 mls @ 999 mls/hr 11/06/24 18:51 11/09/24 11:53 Albutein IVPB 12/06/24 18:50 999 mls/hr Q10M PRN Administration HYPOTENSION Dextrose 1,000 mls @ 100 mls/hr 11/06/24 22:44 Dextrose 5% 1,000 Ml IVPB PRN PRN Hypoglycemia Protocol Insulin Aspart 2 - 5 units 11/07/24 08:00 11/13/24 17:28 Insulin Aspart (*Bkc) 100 Units/Ml SUB-Q Not Given TIDWM ARLYN Protocol Levothyroxine Sodium 112 mcg 11/07/24 06:30 11/13/24 05:45 Levothyroxine Sodium 112 Mcg Tablet PO 112 mcg DAILY@0630 ARLYN Administration Lidocaine/Prilocaine 1 each 11/09/24 06:00 11/12/24 07:52 Lidocaine/Prilocaine Cream 2.5-2.5% Tube TOPICAL 11/21/24 16:02 1 each ONCE PRN Administration Pain Magnesium Oxide 200 mg 11/07/24 09:00 11/13/24 10:30 Magnesium Oxide 200 Mg Tablet PO 200 mg DAILY ARLYN Administration Melatonin 20 mg 11/10/24 21:00 11/12/24 20:56 Melatonin 5 Mg Tablet PO 20 mg HS ARLYN Administration Olanzapine 5 mg 11/10/24 21:00 11/12/24 20:56 Olanzapine 5 Mg Tablet PO 5 mg HS ARLYN Administration Prochlorperazine Edisylate 10 mg 11/06/24 22:46 Prochlorperazine Edisylate 10 Mg/2 Ml Vial IV PUSH Q6H PRN Nausea And Vomiting Sertraline HCl 50 mg 11/07/24 09:00 11/13/24 10:29 Sertraline Hcl 50 Mg Tablet PO 50 mg DAILY ARLYN Administration Sitagliptin Phosphate 100 mg 11/07/24 09:00 11/13/24 10:29 Sitagliptin Phosphate 100 Mg Tablet PO 100 mg QAM ARLYN Administration Tramadol HCl 100 mg 11/06/24 22:43 Tramadol Hcl (*Crx) 50 Mg Tablet PO BID PRN Pain (Scale Score 4-6) Vitamin B Complex/Folic Acid 1 cap 11/07/24 09:00 11/13/24 10:30 Vitamin B Cmplx/Vit C/Folic Ac 1 Capsule PO 1 cap DAILY ARLYN Administration Vitamin D 50 mcg 11/07/24 09:00 11/13/24 10:30 Cholecalciferol (Vitamin D3) 25 Mcg (1,000 Units) Tablet PO 50 mcg DAILY ARLYN Administration Vitamin E 400 unit 11/07/24 09:00 11/13/24 10:30 Vitamin E 400 Unit Capsule PO 400 unit DAILY ARLYN Administration Zinc Sulfate 220 mg 11/07/24 09:00 11/13/24 10:30 Zinc Sulfate 220 Mg Capsule PO 220 mg QAM ARLYN Administration Radiology Results: ITS Impressions Upper Quadrant Ultrasound 11/10/24 15:21 IMPRESSION: Gallbladder not visualized, possibly secondary to cholecystectomy, correlate with surgical history. Hepatomegaly. Otherwise unremarkable right upper quadrant ultrasound findings. Chest X-Ray 11/12/24 07:04 Impression: Extensive right lung pneumonia. Chest CT 11/13/24 10:16 Impression: Patchy consolidation extensively involving the right lung is most compatible with pneumonia. Partial right middle lobe atelectasis and mild atelectatic change at the left lung base. Cardiomegaly with atherosclerotic disease. Labs Labs: Laboratory Tests 11/12/24 05:28 11/13/24 05:12 Calcium 9.7 Total Bilirubin 1.1 AST 37 H ALT 21 Alkaline Phosphatase 175 H NT-Pro-B Natriuret Pep > 98573 H Total Protein 6.9 Albumin 3.3 L Procalcitonin 1.0
--- NOTE | 2024-11-13 14:53 | PM.IMPN ---
Progress Note: A&P Assessment and Plan (1) Acute and chronic respiratory failure: Code(s): J96.20 - Acute and chronic respiratory failure, unspecified whether with hypoxia or hypercapnia Status: Acute Assessment and Plan: Patient normally on 3L O2 chronically. Patient was restless and disoriented in the evening of 11/08. She appeared more drowsy than her baseline. Glucose was normal. AB.24/68/126 on 3L Patient was started on BiPAP. She was moved to the IMU. Patient also had a 6 beat run nonsustained V-tach on telemetry. Repeat AB.31/57/69 on bipap Patient much improved. Acute respiratory failure could be related to excessive oxygen suppressing her respiratory drive. She does not wear CPAP at home. Weaned oxygen to 1L now. Apnea link showing AHI 6 and RI 8. She spent 15 minutes with SpO2<88% while on 1L. Home O2 evaluation showing she needs 1L at rest and 2L with activity. Family wanting patient seen by pulmonary. Seen by Dr. Quintero on 11/13/2024. Continue to appreciate recommendations. O2 evaluation on 2 L tonight. Trial off BiPAP (2) Multifocal pneumonia: Code(s): J18.9 - Pneumonia, unspecified organism Status: Acute Assessment and Plan: Patient presnts with SOB. CXR shows CMG with moderate pulmonary vascular congestion and multifocal pneumonia suspected. She did not meet SIRS criteria but with temp to 100.7 and WBC to 12.3K. No lactic ordered. Started on ceftriaxone and azithromycin on 11/06 BCx NGTD x4 bottles Sputum Cx was not acceptable. MRSA nasal swab was negative. Able to wean down to 1L. Repeat CXR showing extensive right lung PNA. Changed to Augmentin, completed. Continue mucinex. Dialysis to improve with fluid status (3) Chronic respiratory failure: Code(s): J96.10 - Chronic respiratory failure, unspecified whether with hypoxia or hypercapnia Status: Acute Assessment and Plan: As above Patient was on her baseline supplemental O2 requirement at 3L but felt excessive Continue to titrate down O2 to keep SpO2>92% (4) End stage renal disease: Code(s): N18.6 - End stage renal disease Status: Chronic Assessment and Plan: Patient with ESRD on HD (/Mon) CXR showing PNA but also evidence of fluid overload. Nephrology consulted for inpatient dialysis and appreciate their input Multiple dialysis treatments that have improved her hypoxia Trend electrolytes Dialysis to control fluid status (5) Type 2 diabetes mellitus with diabetic chronic kidney disease: Qualifiers: Diabetes mellitus salvage determiner insulin use: without salvage determiner use Chronic kidney disease stage: on chronic dialysis Qualified Code(s): E11.22 - Type 2 diabetes mellitus with diabetic chronic kidney disease; N18.6 - End stage renal disease; Z99.2 - Dependence on renal dialysis Code(s): E11.22 - Type 2 diabetes mellitus with diabetic chronic kidney disease Status: Chronic Assessment and Plan: A1c 5.3%. The patient's blood glucose was reviewed on 11/12 Glucose remains well controlled. Continue AccuCheks covering with sliding scale. Hypoglycemia protocol available as needed. Continue to monitor (6) Hypertension: Qualifiers: Hypertension type: secondary to other renal disorders Qualified Code(s): I15.1 - Hypertension secondary to other renal disorders Code(s): I10 - Essential (primary) hypertension Status: Chronic Assessment and Plan: Patient's blood pressure was reviewed on 11/12 Blood pressure remains well controlled. Will continue to monitor Plan DVT Prophylaxis: SCDs Code Status: full code Subjective Date/time seen: 11/13/24 14:53 Interval history: No acute overnight events. Patient denies pain. Patient denies shortness of breath. Review of Systems Review of Systems: All systems reviewed & are unremarkable except as noted in HPI and below (Subjective) Exam Const: General: comfortable and no acute distress HENMT: Mouth: Yes moist mucous membranes Eyes: Pupils: Equal, round and reactive pupils present Neck: Neck: supple Resp: Effort & Inspection: normal respiratory effort Other: Coarse breath sounds, scant dry crackles diffusely Cardio: Rate: regular rate Rhythm: regular rhythm GI: GI Palp: Yes Soft to palpation Extrem: General: no edema Objective Data Vital Signs Vital Signs: Vital Signs - 24 hr 11/12/24 15:54 11/12/24 16:05 11/12/24 16:25 Temperature 96.5 F L Pulse Rate 86 77 Respiratory Rate 18 Blood Pressure 97/35 L 126/74 Pulse Oximetry 89 L Oxygen Delivery Oxygen Flow Rate Fraction of Inspired Oxygen 11/12/24 16:25 11/12/24 20:00 11/12/24 20:00 Temperature Pulse Rate 77 Respiratory Rate Blood Pressure Pulse Oximetry 100 94 Oxygen Delivery Nasal Cannula Oxygen Flow Rate 1 Fraction of Inspired Oxygen 11/12/24 22:00 11/12/24 23:30 11/13/24 00:00 Temperature 97.0 F L Pulse Rate 74 75 73 Respiratory Rate 18 25 H Blood Pressure 102/45 L Pulse Oximetry 100 96 Oxygen Delivery BiPAP Oxygen Flow Rate Fraction of Inspired Oxygen 11/13/24 02:24 11/13/24 04:00 11/13/24 06:00 Temperature 97.8 F Pulse Rate 77 71 72 Respiratory Rate 22 H 18 Blood Pressure 122/58 L Pulse Oximetry 95 100 Oxygen Delivery BiPAP Oxygen Flow Rate Fraction of Inspired Oxygen 11/13/24 07:16 11/13/24 08:04 11/13/24 10:38 Temperature Pulse Rate 70 Respiratory Rate Blood Pressure Pulse Oximetry 92 93 Oxygen Delivery Nasal Cannula Nasal Cannula Oxygen Flow Rate 1 1 Fraction of Inspired Oxygen 24 11/13/24 12:05 11/13/24 13:10 11/13/24 13:20 Temperature Pulse Rate 78 77 80 Respiratory Rate 20 20 Blood Pressure Pulse Oximetry Oxygen Delivery Oxygen Flow Rate Fraction of Inspired Oxygen Intake/Output Intake/Output: Intake & Output 11/10/24 11/11/24 11/12/24 11/13/24 23:59 23:59 23:59 23:59 Intake Total 685 1170 440 620 Output Total 0 2000 Balance 685 1170 -1560 620 Meds/Results Medications: Active Medications Generic Name Dose Route Start Last Admin Trade Name Freq PRN Reason Stop Dose Admin Acetaminophen 650 mg 11/06/24 18:18 Acetaminophen 325 Mg Tablet PO Q6H PRN Mild Pain (1-3) or Fever Acetylcysteine 200 mg 11/13/24 14:00 11/13/24 13:15 Acetylcysteine 20% Inhal Soln 800 Mg/4 Ml Vial INHALATION 200 mg Q6HRT ARLYN Administration Albuterol/Ipratropium 3 ml 11/06/24 18:16 Ipratropium 0.5 Mg/Albuterol Sulfate 2.5 Mg Ampul.Neb 3 Ml INHALATION Q6HRT PRN Shortness Of Breath Or Wheezing Albuterol/Ipratropium 3 ml 11/13/24 14:00 11/13/24 13:15 Ipratropium 0.5 Mg/Albuterol Sulfate 2.5 Mg Ampul.Neb 3 Ml INHALATION 3 ml Q6HRT ARLYN Administration Atorvastatin Calcium 40 mg 11/07/24 09:00 11/13/24 10:30 Atorvastatin 40 Mg Tablet PO 40 mg DAILY ARLYN Administration Calcium Acetate 667 mg 11/07/24 08:00 11/13/24 12:39 Calcium Acetate 667 Mg Tablet PO 667 mg TIDWM ARLYN Administration Dextrose 12.5 gm 11/06/24 22:44 Dextrose 50% 25 Gm/50 Ml Syringe IV PUSH PRN PRN Hypoglycemia Protocol Ferrous Sulfate 325 mg 11/07/24 09:00 11/13/24 10:29 Ferrous Sulfate [address] PO 325 mg DAILY ARLYN Administration Glucagon 1 mg 11/06/24 22:44 Glucagon For Inj 1 Mg Vial IM PRN PRN Hypoglycemia Protocol Glucose 15 gm 11/06/24 22:44 Glucose Oral Gel 15 Gm Of Glucse In 37.5 Gm Tube PO PRN PRN Hypoglycemia Protocol Guaifenesin 1,200 mg 11/10/24 21:00 11/13/24 10:29 Guaifenesin 12 Hr 600 Mg Tabcr PO 1,200 mg Q12HR ARLYN Administration Albumin Human 50 mls @ 999 mls/hr 11/06/24 18:51 11/09/24 11:53 Albutein IVPB 12/06/24 18:50 999 mls/hr Q10M PRN Administration HYPOTENSION Dextrose 1,000 mls @ 100 mls/hr 11/06/24 22:44 Dextrose 5% 1,000 Ml IVPB PRN PRN Hypoglycemia Protocol Insulin Aspart 2 - 5 units 11/07/24 08:00 11/13/24 12:01 Insulin Aspart (*Bk) 100 Units/Ml SUB-Q Not Given TIDWM [facility] Protocol Levothyroxine Sodium 112 mcg 11/07/24 06:30 11/13/24 05:45 Levothyroxine Sodium 112 Mcg Tablet PO 112 mcg DAILY@0630 ARLYN Administration Lidocaine/Prilocaine 1 each 11/09/24 06:00 11/12/24 07:52 Lidocaine/Prilocaine Cream 2.5-2.5% Tube TOPICAL 11/21/24 16:02 1 each ONCE PRN Administration Pain Magnesium Oxide 200 mg 11/07/24 09:00 11/13/24 10:30 Magnesium Oxide 200 Mg Tablet PO 200 mg DAILY ARLYN Administration Melatonin 20 mg 11/10/24 21:00 11/12/24 20:56 Melatonin 5 Mg Tablet PO 20 mg HS ARLYN Administration Olanzapine 5 mg 11/10/24 21:00 11/12/24 20:56 Olanzapine 5 Mg Tablet PO 5 mg HS ARLYN Administration Prochlorperazine Edisylate 10 mg 11/06/24 22:46 Prochlorperazine Edisylate 10 Mg/2 Ml Vial IV PUSH Q6H PRN Nausea And Vomiting Sertraline HCl 50 mg 11/07/24 09:00 11/13/24 10:29 Sertraline Hcl 50 Mg Tablet PO 50 mg DAILY ARLYN Administration Sitagliptin Phosphate 100 mg 11/07/24 09:00 11/13/24 10:29 Sitagliptin Phosphate 100 Mg Tablet PO 100 mg QAM ARLYN Administration Tramadol HCl 100 mg 11/06/24 22:43 Tramadol Hcl (*Crx) 50 Mg Tablet PO BID PRN Pain (Scale Score 4-6) Vitamin B Complex/Folic Acid 1 cap 11/07/24 09:00 11/13/24 10:30 Vitamin B Cmplx/Vit C/Folic Ac 1 Capsule PO 1 cap DAILY ARLYN Administration Vitamin D 50 mcg 11/07/24 09:00 11/13/24 10:30 Cholecalciferol (Vitamin D3) 25 Mcg (1,000 Units) Tablet PO 50 mcg DAILY ARLYN Administration Vitamin E 400 unit 11/07/24 09:00 11/13/24 10:30 Vitamin E 400 Unit Capsule PO 400 unit DAILY ARLYN Administration Zinc Sulfate 220 mg 11/07/24 09:00 11/13/24 10:30 Zinc Sulfate 220 Mg Capsule PO 220 mg QAM ARLYN Administration Radiology Results: ITS Impressions Upper Quadrant Ultrasound 11/10/24 15:21 IMPRESSION: Gallbladder not visualized, possibly secondary to cholecystectomy, correlate with surgical history. Hepatomegaly. Otherwise unremarkable right upper quadrant ultrasound findings. Chest X-Ray 11/12/24 07:04 Impression: Extensive right lung pneumonia. Chest CT 11/13/24 10:16 Impression: Patchy consolidation extensively involving the right lung is most compatible with pneumonia. Partial right middle lobe atelectasis and mild atelectatic change at the left lung base. Cardiomegaly with atherosclerotic disease. Labs Labs: Laboratory Results - last 24 hr 11/12/24 11/12/24 11/13/24 16:41 20:59 05:12 Sodium 140 Potassium 4.4 Chloride 103 Carbon Dioxide 30 Anion Gap 7 BUN 26 H D Creatinine 3.94 H Estim Creat Clear Calc Not Reportable Estimated GFR 11 L Glucose 83 POC Capillary Glucose 129 H 135 H Calcium 9.7 Total Bilirubin 1.1 AST 37 H ALT 21 Alkaline Phosphatase 175 H NT-Pro-B Natriuret Pep > 65726 H Total Protein 6.9 Albumin 3.3 L Procalcitonin 1.0 Influenza A (RT-PCR) Influenza B (RT-PCR) RSV (RT-PCR) SARS-CoV-2 RNA (RT-PCR) 11/13/24 11/13/24 11/13/24 07:55 09:19 11:54 Sodium Potassium Chloride Carbon Dioxide Anion Gap BUN Creatinine Estim Creat Clear Calc Estimated GFR Glucose POC Capillary Glucose 76 166 H Calcium Total Bilirubin AST ALT Alkaline Phosphatase NT-Pro-B Natriuret Pep Total Protein Albumin Procalcitonin Influenza A (RT-PCR) Negative Influenza B (RT-PCR) Negative RSV (RT-PCR) Negative SARS-CoV-2 RNA (RT-PCR) Negative
[2024-11-13] MEDS: MELATONIN 5 MG TABLET 20 MG PO (20:53)
[2024-11-14] VITALS (30 sets, daily range): BP systolic 92–154; BP diastolic 50–64; PULSE 48–78; RESP 14–18; TEMP 36.4–37.3; O2SAT 93–100
--- NOTE | 2024-11-14 03:04 | PCRCNOTE ---
0200 Tx not given due to patient doing sleep study.
[2024-11-14] MEDS: LEVOTHYROXINE SODIUM 112 MCG TABLET PO (06:10)
[2024-11-14] MEDS: IPRATROPIUM 0.5 MG/ALBUTEROL SULFATE 2.5 MG AMPUL.NEB 3 ML INHALATION ×2 (07:31→15:13)
[2024-11-14] MEDS: ACETYLCYSTEINE 20% INHAL SOLN 800 MG/4 ML VIAL 200 MG INHALATION ×2 (07:31→15:12)
[2024-11-14] MEDS: LIDOCAINE/PRILOCAINE CREAM 2.5-2.5% TUBE 1 EACH TOPICAL (08:35)
--- NOTE | 2024-11-14 09:23 | P.PNPL_ITS ---
Progress Note: A&P Assessment and Plan (1) Pneumonia: Code(s): J18.9 - Pneumonia, unspecified organism Status: Acute Assessment and Plan: Patient with a history of influenza a and COVID pneumonia on 06/13/2024 and is never made a complete clinical Recovery since then. She was required 3 L nasal cannula at rest, with activity and with sleep since then. She presents now with vomiting followed by shortness of breath, cough, fever, leukocytosis. she has been treated with ceftriaxone 2 he is 6 x5 days, azithromycin x5 days and Augmentin x2 days. She is unable to tell me if she is clinically any better. Her leukocytosis has resolved, she is afebrile and her oxygen requirements have improved. She has also been diuresed 4.5 L since admission with hemodialysis and ultrafiltration. 11/13/24: Patient tells me she is breathing better. She cannot quantitate how much better she is feeling. She does not know why she came to the hospital and does not remember having breathing issues when she presented to the hospital. She does states she has some shortness of breath at rest, cough with some phlegm production. Her white blood cell count is 4.8, creatinine is 3.94, serum bicarbonate is 30. Patient told me she could not tolerate the noninvasive ventilator and BiPAP settings last night and does not think she would be able to wear machine at home. Her procalcitonin is 1.0, her BNP is greater than 30,000. when I enter the room the patient was on 2 L with saturations 100%. I decreased her to room air and her saturations were 92%. COVID, influenza, RSV RT PCR assay negative. Later in the day CT scan of the chest showed right upper lobe peripheral nodular opacities, central consolidative infiltrates with patent airways and partial collapse of the right middle lobe and right lower lobe consolidative infiltrates. Patchy lingular infiltrates and consolidative peripheral infiltrates left lower lobe. Compared to 06/13/2024 the right upper lobe peripheral nodular opacities, right middle lobe consolidation and atelectasis have increased and the right lower lobe nodular infiltrates remain unchanged. The left lower lobe nodular infiltrates have improved and the left upper lobe infiltrates have improved. Plan: patient has completed 7 days of antibiotics and will watch her off antibiotics at this time. CT scan does not demonstrate any pleural effusion. CT scan does show dense consolidations and this may be related to current bacterial infection and or post COVID organizing pneumonia-interstitial lung disease. I have sent respiratory pathogen panel looking for additional infectious etiologies. Patient has a difficult time coughing and expectorating. Agree with guaifenesin 1200 mg p.o. q.12 hours, Cornet flutter valve, I will add DuoNebs q.6 hours and Mucomyst nebulizers q.6 hours to see if this can help her expectorate. I have sent respiratory pathogen panel looking for additional infectious etiologies. Patient should have a follow-up CT scan in about 6 weeks to follow these infiltrates. 11/14/24: The patient tells me she is breathing okay. I asked her if she is better than when she came to the hospital and she said she does not know. I ask ed her how much better she is and she said she can not quantitate this. She just said her breathing is okay. She denies any rest shortness of breath. She is afebrile. 1 L nasal cannula saturations 100%. Yesterday she is positive 1.1 L. Cumulative she is -3.5 L since admission. Yesterday she walked 30 ft twice. She is scheduled for dialysis today. Plan: Stable off antibiotics for 24 hours. Respiratory pathogen panel pending and will take 5 days to return. Patient has little phlegm production. continue guaifenesin, Cornet flutter valve. She has noticed minimal difference with DuoNebs and Mucomyst q.6. Will follow with you. (2) Respiratory failure with hypoxia and hypercapnia: Code(s): J96.91 - Respiratory failure, unspecified with hypoxia; J96.92 - Respiratory failure, unspecified with hypercapnia Status: Acute Assessment and Plan: Patient with chronic hypoxemic respiratory failure related to post COVID influenza infection in June of 2024. She tells me she was on 3 L nasal cannula at rest, with activity and with sleep. Patient has a blood gas on 11/06/2023 with pH of 7.34/57/60 7 on half a L nasal cannula. On 11/09/2024 patient had restlessness and drowsiness at with an ABG of 7.24/68/126 and was placed on BiPAP. Repeat BiPAP gas 2 hours and 15 minutes later 7.31/57/69. Patient wore BiPAP overnight on 11/09/2024 an ABG the morning of 11/10/2024 of 7.35/52/117. She is a never smoker with no bullous emphysema on her CT scan. No Interstitial lung disease on her CT scan. I have no PFTs to determine if she has a restrictive abnormality. TSH 2.57 on 11/10/2024 without evidence of hypothyroidism. BMI is 24.0. Review of chest x-rays demonstrate no elevated right hemidiaphragm on 11/12/2023. next x-ray on 01/26/2024 shows an elevated right hemidiaphragm with persistence since then. 11/10/2024: Overnight oximetry on 1 L nasal cannula oxygen with recording duration 6 hours and 31 minutes. Average saturation 95 %, low saturation 79%. Time with saturation less than or equal to 88% was 15 minutes, oxygen desaturation index 6.5. 11/12/2024: Home O2 assessment: Rest room air saturation 87%. Rest nasal cannula 1 L saturation 93%. Exercise nasal cannula 1 L saturation 88%. Ex ercise nasal cannula 2 L saturation 92%. 11/13/24: Patient told me she could not tolerate the noninvasive ventilator and BiPAP settings last night and does not think she would be able to wear machine at home. Plan: Goal saturation 90-94%. I will leave the patient off BiPAP for 24 hours and check a blood gas tomorrow morning to assess for chronic hypercarbic respiratory failure. I will perform an overnight oximetry on 2 L nasal cannula tonight. 11/14/24: Patient had an overnight oximetry on 2 L nasal cannula with recording duration of 5 hours and 41 minutes. Average saturation 99%. Low saturation 71%. Time with saturation less than or equal to 88% was 1 minute. Oxygen desaturation index 3. Plan: Overnight oximetry on 2 L nasal cannula with adequate oxygenation. I have ordered an ABG today off the BiPAP for 24 hours to reassess for chronic hypercarbic respiratory failure. Will order sniff test to assess for paralyzed right hemidiaphragm. Subjective Date/time seen: 11/14/24 09:23 Interval history: 11/13/2024: This is a new pulmonary consult for hypoxia. Patient previously seen in the Pulmonary Clinic as a new patient on 07/10/2024: This is the note. NEW: Gisele Centeno is here with her daughter, Gail, who lives with the patient along with Gail's children and grandchildren, 6 people total. Gisele is 78 years old, in a wheelchair, alert and oriented, provides a good history with assistance by Gail. Gisele uses a walker at home. She has been using supplemental O2 since Jan 2024 when she had pneumonia and was admitted to the hospital. First office visit, she is here in wheelchair, has a walker at home; she uses O2 at home since Jan 2024, was prescribed after pneumonia and hospital admission. She was admitted Jun 13, 2024 through the ED, had low oxygen saturation, had a (+) home test for influenza A on 06/10/2024; other family members also had influenza and COVID. On the day prior to admission on 06/12/2024 the patient is O2 saturation dropped to 79%. They increased her to 5 L. then at dialysis on 06/13/2024 she was again bumped up to 5 L. On admission RT PCR positive for influenza a and COVID. She had a dry cough but no fevers. She was on 3 L/min, CTA of chest - no PE, did reveal pulmonary edema and multifocal pneumonia. Cardiomegaly and enlargement of central pulmonary arteries consistent with pulmonary artery hypertension and unchanged mediastinal left supraclavicular lymphadenopathy. She has chronic thrombocytopenia in admission a platelet count of 57. EKG with out acute ischemia. Troponin 0.402 and then 0.331. Viral screens positive for influenza a and COVID 19. She is a never-smoker. 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 Her father was a light smoker. 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 Her smoked some. There is no family history of lung diseases. No one has asthma, lung cancer, or COPD. Vaccinations: had a flu shot, pneumonia, COVID booster, and shingles. She has not had an RSV vaccination. She has an oximeter at home, with O2 at 3 L, sat is 92%-95%. PMH: 5 Years on HD, [place], left arm fistula ; hypothyroidism, chronic hypoxic respiratory failure requiring 3 L nasal cannula continuously. current symptoms cough, sputum, sometimes, clear; She has mayberry a runny for 10 years, clear secretions. pets; great great pyrenees, 2 cats, no hx bird exposure. no chickens. Saturaiton today is 96% on 3 L, higher than goal of 90-94% using O2. Plan: Goal saturation 90-94. Overnight oximetry on 3 L, act Capella vibratory valve. Swallow evaluation. Cardiology evaluation would be helpful, she appears to have possible combination of breathing issues due to renal and cardiac involvement. 09/11/2024: Modified barium swallow: Impression: Patient tolerated regular consistency oral feedings in the upright position. 11/06/2024: Patient presented to the emergency department with shortness of breath, productive cough, worsening oxygenation compared to her baseline which is 3 L nasal cannula with rest, activity and sleep. White blood cell count was 10.6, creatinine 5.53, serum bicarbonate 28. CXR: Redemonstration of significant cardiomegaly with moderate pulmonary vascular congestion and multifocal pneumonia suspected. Patient was treated for bacterial pneumonia with ceftriaxone and azithromycin and for fluid overload with dialysis on 11/07/2024. Patient received ultrafiltration on 11/08, hemodialysis on 11/09. The evening of 7 5 patient had restlessness and drowsiness and an ABG on 3 L was 7.24/68/126 and was placed on BiPAP with repeat ABG of 7.31/57/69. Her oxygenation improved on 11/10 and she required 1 L nasal cannula. 11/10/2024 patient completed 5 days of azithromycin 11/12/2024: Patient had hemodialysis, required 1 L oxygen and her ceftriaxone Was changed to Augmentin. chest x-ray showed unchanged diffuse interstitial alveolar infiltrates in the right lung with possible effusion. Home O2 assessment rest room air saturation 87%. Rest nasal cannula 1 L saturation 93%. Exercise nasal cannula 1 L saturation 88%. Exercise nasal cannula 2 L saturation 92%. Patient requires 1 L at rest and 2 with activity. 11/13/2024: Overall patient tells me she has never fully recovered from her COVID and influenza a infection on 06/10/2024. Prior to this infection she had no respiratory issues. Since then she has continued shortness of breath and dyspnea on exertion. Patient tells me she is breathing better. She cannot quantitate how much better she is feeling. She does not know why she came to the hospital and does not remember having breathing issues when she presented to the hospital. She does states she has some shortness of breath at rest, cough with some phlegm production. Her white blood cell count is 4.8, creatinine is 3.94, serum bicarbonate is 30. Patient told me she could not tolerate the noninvasive ventilator and BiPAP settings last night and does not think she would be able to wear machine at home. Her procalcitonin is 1.0, her BNP is greater than 30,000. when I enter the room the patient was on 2 L with saturations 100%. I decreased her to room air and her saturations were 92%. Later in the day CT scan of the chest showed right upper lobe peripheral nodular opacities, central consolidative infiltrates with patent airways and partial collapse of the right middle lobe and right lower lobe consolidative infiltrates. Patchy lingular infiltrates and consolidative peripheral infiltrates left lower lobe. Compared to 06/13/2024 the right upper lobe peripheral nodular opacities, right middle lobe consolidation and atelectasis have increased and the right lower lobe nodular infiltrates remain unchanged. The left lower lobe nodular infiltrates have improved and the left upper lobe infiltrates have improved. 11/14/24: The patient tells me she is breathing okay. I asked her if she is better than when she came to the hospital and she said she does not know. I asked her how much better she is and she said she can not quantitate this. She just said her breathing is okay. She denies any rest shortness of breath. She is afebrile. 1 L nasal cannula saturations 100%. Yesterday she is positive 1.1 L. Cumulative she is -3.5 L since admission. Yesterday she walked 30 ft twice. Patient had an overnight oximetry on 2 L nasal cannula with recording duration of 5 hours and 41 minutes. Average saturation 99%. Low saturation 71%. Time with saturation less than or equal to 88% was 1 minute. Oxygen desaturation index 3. She is scheduled for dialysis today. DATA: 11/13/2024: CT Scan of the Chest without Contrast: Clinical Indication: Pneumonia Technique: Contiguous sections were acquired throughout the chest without intravenous contrast. Dose reduction technique was used on this scan by utilizing automated exposure control and iterative reconstruction technique. The dose-length product (DLP) was 114.90 mGy-cm. COMPARISON: 06/13/2024 Findings: There is cardiomegaly with extensive atherosclerotic calcification of the aorta and coronary arteries. There is no evidence of pleural or pericardial effusion. There is patchy consolidation extensive involving the right lung. There is probable partial right middle lobe atelectasis. There is probable minimal atelectatic change at the lingula and the anterobasilar left lower lobe. Images through the upper abdomen reveal no abnormalities. Impression: Patchy consolidation extensively involving the right lung is most compatible with pneumonia. Partial right middle lobe atelectasis and mild atelectatic change at the left lung base. Cardiomegaly with atherosclerotic disease. * 11/06/2023 ABG on a half a liter O2; 7.33/57/66.8 /30/ 91.7% ; hemoglobin 10.5 g/dL * 06/25/24 CXR : Comparison to multiple prior studies sequentially, with oldest reviewed study dated 11/12/2023. Findings: Moderate cardiomegaly with interstitial edema. Enlarged pulmonary arteries consistent with pulmonary hypertension. There is atherosclerosis and ectasia of the aorta. No significant effusion. No pneumothorax. Impression: 1: Moderate cardiomegaly with interstitial edema. * 06/19/2024; discharged with Influenza A: COVID 19, acute on chronic respiratory failure, hypoxemia, multifocal pneumonia * 06/13/2024 CTA ; FINDINGS: No pulmonary embolism. Again seen is enlargement of the central pulmonary arteries consistent with pulmonary arterial hypertension. Scattered smooth septal line thickening in both lungs most prominent peripherally in the upper lungs consistent with mild pulmonary edema. Scattered patchy consolidation with air bronchograms in both lungs along with a few smaller more nodular appearing opacities with similar appearance but different distribution than on the prior study most consistent with multifocal pneumonia. There is associated scattered mucous plugging in the bronchi. No pleural effusion. Moderate cardiomegaly with right-sided predominance. Atherosclerotic coronary artery calcifications. Aortic valve calcific is. Thoracic aorta is normal in caliber. Unchanged mediastinal and supraclavicular lymphadenopathy which is likely reactive. Scattered hepatic and splenic calcifications consistent with old granulomatous disease. There is a small amount of perihepatic ascites. 2 cm left adrenal mass unchanged since 10/08/2017 most consistent with an adenoma. Moderate thoracic spondylosis with bridging osteophytes at multiple levels consistent with diffuse idiopathic skeletal hyperostosis (DISH). IMPRESSION: 1. No pulmonary embolism. 2. Combination of mild pulmonary edema and multifocal pneumonia. 3. Cardiomegaly and enlargement of the central pulmonary arteries consistent with pulmonary arterial hypertension. 4. Unchanged mediastinal and left supraclavicular lymphadenopathy which is likely reactive. 09/17/2010: CTA PULMONARY INDICATION: Shortness of breath There are no prior studies available for comparison. FINDINGS: Pulmonary arteries are enlarged. There are no pulmonary emboli. No thoracic aortic dissection. There is 4 chamber cardiomegaly. No pleural or pericardial effusions. Tracheobronchial tree is patent. Patchy mosaic attenuation which could be from expiratory phase of imaging. Small amount of bibasilar atelectasis. There is no mediastinal, hilar or axillary lymphadenopathy. Incidental 1.8 cm left adrenal gland adenoma. Mild dextroscoliosis. Cholelithiasis and gallbladder neck. IMPRESSION: 1. No pulmonary emboli. 2. Cardiomegaly. 3. Mosaic attenuation, probably expiratory phase of imaging. mild pulmonary edema also possible. 4. Cholelithiasis. 5. Left adrenal adenoma. 6. Enlarged pulmonary arteries probably indicating pulmonary arterial hypertension. Review of Systems Constitutional: Constitutional: Reports no additional constitutional complaints Eyes: Eyes: Reports no additional eye complaints ENT: Reports system reviewed and no additional complaints, except as documented Cardiovascular: Cardiovascular: Reports no additional cardiovascular complaints Respiratory: Respiratory: Reports no additional respiratory complaints Gastrointestinal: Gastrointestinal: Reports no additional gastrointestinal complaints Musculoskeletal: Musculoskeletal: Reports no additional musculoskeletal complaints Neurologic: Reports system reviewed and no additional complaints, except as documented Psychiatric: Psychiatric: Reports no additional psychiatric complaints Endocrine: Endocrine: Reports no additional endocrine complaints Hematologic/Lymphatic: Hematologic/Lymphatic: Reports no additional hematologic/lymphatic complaints Allergic/Immunologic: Allergic/Immunologic: Reports no additional allergic/immunologic complaints Exam Const: General: comfortable Orientation/consciousness: oriented to person, oriented to place and oriented to time HENMT: Head: normal to inspection Ears: hearing grossly normal bilaterally Eyes: General: appearance normal, both eyes and all related structures Neck: Neck: normal visual inspection Chest: Chest palpation & inspection: normal inspection of the chest Resp: Effort & Inspection: normal respiratory effort and able to speak in complete sentences Auscultation: crackles, no rales, no rhonchi, no wheezes and lung sounds not diminished Other: Diffuse crackles right lung Cardio: Jugular venous distension: no JVD GI: Inspection: normal to inspection Skin: General skin exam: normal color Neuro: General: oriented to person, oriented to place and oriented to time Extrem: General: normal to inspection Psych: Appearance: grossly normal Objective Data Vital Signs Vital Signs: Vital Signs - 24 hr 11/13/24 10:38 11/13/24 12:05 11/13/24 13:10 Temperature Pulse Rate 78 77 Respiratory Rate 20 Blood Pressure Pulse Oximetry 93 Oxygen Delivery Nasal Cannula Oxygen Flow Rate 1 Fraction of Inspired Oxygen 11/13/24 13:20 11/13/24 16:04 11/13/24 20:00 Temperature Pulse Rate 80 77 Respiratory Rate 20 Blood Pressure Pulse Oximetry 93 Oxygen Delivery Nasal Cannula Oxygen Flow Rate 1 Fraction of Inspired Oxygen 11/13/24 20:00 11/13/24 20:44 11/13/24 20:44 Temperature Pulse Rate 76 75 Respiratory Rate 18 Blood Pressure Pulse Oximetry 92 Oxygen Delivery Nasal Cannula Oxygen Flow Rate 1 Fraction of Inspired Oxygen 24 11/13/24 20:58 11/13/24 22:00 11/14/24 00:00 Temperature 36.4 C Pulse Rate 74 76 75 Respiratory Rate 18 18 Blood Pressure 131/52 L Pulse Oximetry 100 Oxygen Delivery Oxygen Flow Rate Fraction of Inspired Oxygen 11/14/24 04:00 11/14/24 06:00 11/14/24 07:32 Temperature 36.5 C Pulse Rate 74 70 Respiratory Rate 18 Blood Pressure 132/59 L Pulse Oximetry 100 100 Oxygen Delivery Nasal Cannula Oxygen Flow Rate 2 Fraction of Inspired Oxygen 11/14/24 07:32 11/14/24 07:46 11/14/24 08:20 Temperature Pulse Rate 70 76 Respiratory Rate 18 18 Blood Pressure Pulse Oximetry 97 Oxygen Delivery Nasal Cannula Oxygen Flow Rate 1 Fraction of Inspired Oxygen Intake/Output Intake/Output: Intake & Output 11/11/24 11/12/24 11/13/24 11/14/24 23:59 23:59 23:59 23:59 Intake Total 9796 910 1664 620 Output Total 0 1999 Balance 1170 -1560 1100 620 Meds/Results Medications: Active Medications Generic Name Dose Route Start Last Admin Trade Name Freq PRN Reason Stop Dose Admin Acetaminophen 650 mg 11/06/24 18:18 Acetaminophen 325 Mg Tablet PO Q6H PRN Mild Pain (1-3) or Fever Acetylcysteine 200 mg 11/13/24 14:00 11/14/24 07:31 Acetylcysteine 20% Inhal Soln 800 Mg/4 Ml Vial INHALATION 200 mg Q6HRT ARLYN Administration Albuterol/Ipratropium 3 ml 11/06/24 18:16 Ipratropium 0.5 Mg/Albuterol Sulfate 2.5 Mg Ampul.Neb 3 Ml INHALATION Q6HRT PRN Shortness Of Breath Or Wheezing Albuterol/Ipratropium 3 ml 11/13/24 14:00 11/14/24 07:31 Ipratropium 0.5 Mg/Albuterol Sulfate 2.5 Mg Ampul.Neb 3 Ml INHALATION 3 ml Q6HRT ARLYN Administration Atorvastatin Calcium 40 mg 11/07/24 09:00 11/13/24 10:30 Atorvastatin 40 Mg Tablet PO 40 mg DAILY ARLYN Administration Calcium Acetate 667 mg 11/07/24 08:00 11/13/24 17:28 Calcium Acetate 667 Mg Tablet PO 667 mg TIDWM ARLYN Administration Dextrose 12.5 gm 11/06/24 22:44 Dextrose 50% 25 Gm/50 Ml Syringe IV PUSH PRN PRN Hypoglycemia Protocol Epoetin Vini-epbx 10,000 units 11/14/24 18:53 Epoetin Vini-Epbx 10,000 Units/Ml Vial IV PUSH 11/14/24 18:54 ONCE ONE Ferrous Sulfate 325 mg 11/07/24 09:00 11/13/24 10:29 Ferrous Sulfate [address] PO 325 mg DAILY ARLYN Administration Glucagon 1 mg 11/06/24 22:44 Glucagon For Inj 1 Mg Vial IM PRN PRN Hypoglycemia Protocol Glucose 15 gm 11/06/24 22:44 Glucose Oral Gel 15 Gm Of Glucse In 37.5 Gm Tube PO PRN PRN Hypoglycemia Protocol Guaifenesin 1,200 mg 11/10/24 21:00 11/13/24 20:53 Guaifenesin 12 Hr 600 Mg Tabcr PO 1,200 mg Q12HR ARLYN Administration Albumin Human 50 mls @ 999 mls/hr 11/06/24 18:51 11/09/24 11:53 Albutein IVPB 12/06/24 18:50 999 mls/hr Q10M PRN Administration HYPOTENSION Dextrose 1,000 mls @ 100 mls/hr 11/06/24 22:44 Dextrose 5% 1,000 Ml IVPB PRN PRN Hypoglycemia Protocol Insulin Aspart 2 - 5 units 11/07/24 08:00 11/14/24 08:04 Insulin Aspart (*Bkc) 100 Units/Ml SUB-Q Not Given TIDWM ARLYN Protocol Levothyroxine Sodium 112 mcg 11/07/24 06:30 11/14/24 06:10 Levothyroxine Sodium 112 Mcg Tablet PO 112 mcg DAILY@0630 ARLYN Administration Lidocaine/Prilocaine 1 each 11/09/24 06:00 11/14/24 08:35 Lidocaine/Prilocaine Cream 2.5-2.5% Tube TOPICAL 11/21/24 16:02 1 each ONCE PRN Administration Pain Magnesium Oxide 200 mg 11/07/24 09:00 11/13/24 10:30 Magnesium Oxide 200 Mg Tablet PO 200 mg DAILY ARLYN Administration Melatonin 20 mg 11/10/24 21:00 11/13/24 20:53 Melatonin 5 Mg Tablet PO 20 mg HS ARLYN Administration Olanzapine 5 mg 11/10/24 21:00 11/13/24 20:53 Olanzapine 5 Mg Tablet PO 5 mg HS ARLYN Administration Prochlorperazine Edisylate 10 mg 11/06/24 22:46 Prochlorperazine Edisylate 10 Mg/2 Ml Vial IV PUSH Q6H PRN Nausea And Vomiting Sertraline HCl 50 mg 11/07/24 09:00 11/13/24 10:29 Sertraline Hcl 50 Mg Tablet PO 50 mg DAILY ARLYN Administration Sitagliptin Phosphate 100 mg 11/07/24 09:00 11/13/24 10:29 Sitagliptin Phosphate 100 Mg Tablet PO 100 mg QAM ARLYN Administration Tramadol HCl 100 mg 11/06/24 22:43 Tramadol Hcl (*Crx) 50 Mg Tablet PO BID PRN Pain (Scale Score 4-6) Vitamin B Complex/Folic Acid 1 cap 11/07/24 09:00 11/13/24 10:30 Vitamin B Cmplx/Vit C/Folic Ac 1 Capsule PO 1 cap DAILY ARLYN Administration Vitamin D 50 mcg 11/07/24 09:00 11/13/24 10:30 Cholecalciferol (Vitamin D3) 25 Mcg (1,000 Units) Tablet PO 50 mcg DAILY ARLYN Administration Vitamin E 400 unit 11/07/24 09:00 11/13/24 10:30 Vitamin E 400 Unit Capsule PO 400 unit DAILY ARLYN Administration Zinc Sulfate 220 mg 11/07/24 09:00 11/13/24 10:30 Zinc Sulfate 220 Mg Capsule PO 220 mg QAM ARLYN Administration Radiology Results: ITS Impressions Upper Quadrant Ultrasound 11/10/24 15:21 IMPRESSION: Gallbladder not visualized, possibly secondary to cholecystectomy, correlate with surgical history. Hepatomegaly. Otherwise unremarkable right upper quadrant ultrasound findings. Chest X-Ray 11/12/24 07:04 Impression: Extensive right lung pneumonia. Chest CT 11/13/24 10:16 Impression: Patchy consolidation extensively involving the right lung is most compatible with pneumonia. Partial right middle lobe atelectasis and mild atelectatic change at the left lung base. Cardiomegaly with atherosclerotic disease. Labs Labs: Laboratory Results - last 24 hr 11/13/24 11/13/24 11/13/24 09:19 11:54 16:54 POC Capillary Glucose 166 H 133 H Influenza A (RT-PCR) Negative Influenza B (RT-PCR) Negative RSV (RT-PCR) Negative SARS-CoV-2 RNA (RT-PCR) Negative 11/13/24 11/14/24 20:31 07:54 POC Capillary Glucose 108 H 85 Influenza A (RT-PCR) Influenza B (RT-PCR) RSV (RT-PCR) SARS-CoV-2 RNA (RT-PCR)
[2024-11-14] MEDS: SODIUM CHLORIDE 0.9% IV 1,000 ML 999 ML IV CONT (11:28)
[2024-11-14] MEDS: EPOETIN ALFA-EPBX 10,000 UNITS/ML VIAL 10000 UNITS IV PUSH (11:28)
--- NOTE | 2024-11-14 11:35 | P.PNNP_ITS ---
Progress Note: A&P Assessment and Plan (1) End stage renal disease: Code(s): N18.6 - End stage renal disease Status: Chronic Assessment and Plan: * HD today * continue T/T/S dialysis schedule while hospitalized * follow electrolytes, volume status, and clearance (2) Acute on chronic hypoxic respiratory failure: Code(s): J96.21 - Acute and chronic respiratory failure with hypoxia Status: Acute Assessment and Plan: * as noted on presentation * was on her chronic 3L supplemental oxygen at baseline on admission * weaning oxygen as tolerated to keep O2 saturations > 90% * down to 1L * multifactorial etiology: * chronic respiratory failure * pneumonia * pulmonary vascular congestion * volume overload * pulmonary HTN * s/p DUF session on 11/08 for further fluid removal * Pulmonary recommendations noted * continue supportive therapy as outlined (3) Multifocal pneumonia: Code(s): J18.9 - Pneumonia, unspecified organism Status: Acute Assessment and Plan: * as noted by admission CXR: * redemonstration of significant cardiomegaly with moderate pulmonary vascular congestion and multifocal pneumonia suspected * follow culture data - negative to date * on antibiotic therapy * PRN antitussives and nebulizer treatments (4) Anemia: Code(s): D64.9 - Anemia, unspecified Status: Chronic Assessment and Plan: * due to ESRD and likely worsened by acute infection * Epogen with HD * follow H/H (5) Hypertension: Qualifiers: Hypertension type: secondary to other renal disorders Qualified Code(s): I15.1 - Hypertension secondary to other renal disorders Code(s): I10 - Essential (primary) hypertension Status: Chronic Assessment and Plan: * reasonable control * follow trend of hemodynamics (6) Type 2 diabetes mellitus with diabetic polyneuropathy: Qualifiers: Diabetes mellitus termite treater helper insulin use: without longterm use Q ualified Code(s): E11.42 - Type 2 diabetes mellitus with diabetic polyneuropathy Code(s): E11.42 - Type 2 diabetes mellitus with diabetic polyneuropathy Status: Chronic Assessment and Plan: * follow accu-cheks * glycemic control per hospitalists Will continue to follow. L Subjective Date/time seen: 11/14/24 11:35 Interval history: Follow-up for end stage renal disease on hemodialysis. Tolerating dialysis treatment at the time of my visit (seen on HD at 11:25am); reports that her breathing is doing okay but cannot say if her breathing/respiratory status has really improved since her admission; stable oxygen saturations on 1L by nasal cannula; no other issues/events overnight or earlier this morning. Exam 2 Narrative: General: somewhat ill-appearing elderly female in NAD Heart: normal S1 and S2; no rub Lungs: coarse breath sounds; decreased at the bases Abdomen: soft, nontender, nondistended, positive bowel sounds Extremities: trace - 1+ bilateral edema (chronic) in LEs Skin: warm and intact Objective Data Vital Signs Vital Signs: Vital Signs Temp Pulse Resp BP Pulse Ox O2 Del Method O2 Flow Rate 11/14/24 11:15 67 92/55 L 11/14/24 11:00 71 105/53 L 11/14/24 10:45 70 102/51 L 11/14/24 10:30 69 120/53 L 11/14/24 10:15 67 98/56 L 11/14/24 10:00 70 102/50 L 11/14/24 09:45 53 L 123/54 L 11/14/24 09:30 66 154/64 H 11/14/24 09:14 74 126/60 11/14/24 09:00 1 11/14/24 09:00 97.9 F 75 18 116/60 95 11/14/24 08:20 97 Nasal Cannula 1 11/14/24 07:46 76 18 11/14/24 07:32 70 18 11/14/24 07:32 100 Nasal Cannula 2 11/14/24 06:00 97.7 F 70 18 132/59 L 100 11/14/24 04:00 74 11/14/24 00:00 75 11/13/24 22:00 97.6 F 76 18 131/52 L 100 11/13/24 20:58 74 18 11/13/24 20:44 75 18 11/13/24 20:44 92 Nasal Cannula 1 11/13/24 20:00 76 11/13/24 20:00 93 Nasal Cannula 1 11/13/24 16:04 77 Intake/Output Intake/Output: Intake & Output 11/11/24 11/12/24 11/13/24 11/14/24 23:59 23:59 23:59 23:59 Intake Total 9460 546 8357 620 Output Total 0 1999 1999 Balance 1170 -1560 1100 -1380 Meds/Results Medications: Active Medications Generic Name Dose Route Start Last Admin Trade Name Freq PRN Reason Stop Dose Admin Acetaminophen 650 mg 11/06/24 18:18 Acetaminophen 325 Mg Tablet PO Q6H PRN Mild Pain (1-3) or Fever Acetylcysteine 200 mg 11/13/24 14:00 11/14/24 07:31 Acetylcysteine 20% Inhal Soln 800 Mg/4 Ml Vial INHALATION 200 mg Q6HRT ARLYN Administration Albuterol/Ipratropium 3 ml 11/06/24 18:16 Ipratropium 0.5 Mg/Albuterol Sulfate 2.5 Mg Ampul.Neb 3 Ml INHALATION Q6HRT PRN Shortness Of Breath Or Wheezing Albuterol/Ipratropium 3 ml 11/13/24 14:00 11/14/24 07:31 Ipratropium 0.5 Mg/Albuterol Sulfate 2.5 Mg Ampul.Neb 3 Ml INHALATION 3 ml Q6HRT ARLYN Administration Atorvastatin Calcium 40 mg 11/07/24 09:00 11/14/24 13:22 Atorvastatin 40 Mg Tablet PO 40 mg DAILY ARLYN Administration Calcium Acetate 667 mg 11/07/24 08:00 11/14/24 13:24 Calcium Acetate 667 Mg Tablet PO Not Given TIDWM ARLYN Dextrose 12.5 gm 11/06/24 22:44 Dextrose 50% 25 Gm/50 Ml Syringe IV PUSH PRN PRN Hypoglycemia Protocol Epoetin Vini-epbx 10,000 units 11/14/24 18:53 11/14/24 11:28 Epoetin Vini-Epbx 10,000 Units/Ml Vial IV PUSH 11/14/24 18:54 10,000 units ONCE ONE Administration Ferrous Sulfate 325 mg 11/07/24 09:00 11/14/24 13:22 Ferrous Sulfate [address] PO 325 mg DAILY ARLYN Administration Glucagon 1 mg 11/06/24 22:44 Glucagon For Inj 1 Mg Vial IM PRN PRN Hypoglycemia Protocol Glucose 15 gm 11/06/24 22:44 Glucose Oral Gel 15 Gm Of Glucse In 37.5 Gm Tube PO PRN PRN Hypoglycemia Protocol Guaifenesin 1,200 mg 11/10/24 21:00 11/14/24 13:22 Guaifenesin 12 Hr 600 Mg Tabcr PO 1,200 mg Q12HR ARLYN Administration Albumin Human 50 mls @ 999 mls/hr 11/06/24 18:51 11/09/24 11:53 Albutein IVPB 12/06/24 18:50 999 mls/hr Q10M PRN Administration HYPOTENSION Dextrose 1,000 mls @ 100 mls/hr 11/06/24 22:44 Dextrose 5% 1,000 Ml IVPB PRN PRN Hypoglycemia Protocol Insulin Aspart 2 - 5 units 11/07/24 08:00 11/14/24 08:04 Insulin Aspart (*Bkc) 100 Units/Ml SUB-Q Not Given TIDWM ARLYN Protocol Levothyroxine Sodium 112 mcg 11/07/24 06:30 11/14/24 06:10 Levothyroxine Sodium 112 Mcg Tablet PO 112 mcg DAILY@0630 ARLYN Administration Lidocaine/Prilocaine 1 each 11/09/24 06:00 11/14/24 08:35 Lidocaine/Prilocaine Cream 2.5-2.5% Tube TOPICAL 11/21/24 16:02 1 each ONCE PRN Administration Pain Magnesium Oxide 200 mg 11/07/24 09:00 11/14/24 13:21 Magnesium Oxide 200 Mg Tablet PO 200 mg DAILY ARLYN Administration Melatonin 20 mg 11/10/24 21:00 11/13/24 20:53 Melatonin 5 Mg Tablet PO 20 mg HS ARLYN Administration Olanzapine 5 mg 11/10/24 21:00 11/13/24 20:53 Olanzapine 5 Mg Tablet PO 5 mg HS ARLYN Administration Prochlorperazine Edisylate 10 mg 11/06/24 22:46 Prochlorperazine Edisylate 10 Mg/2 Ml Vial IV PUSH Q6H PRN Nausea And Vomiting Sertraline HCl 50 mg 11/07/24 09:00 11/14/24 13:22 Sertraline Hcl 50 Mg Tablet PO 50 mg DAILY ARLYN Administration Sitagliptin Phosphate 100 mg 11/07/24 09:00 11/14/24 13:22 Sitagliptin Phosphate 100 Mg Tablet PO 100 mg QAM ARLYN Administration Tramadol HCl 100 mg 11/06/24 22:43 Tramadol Hcl (*Crx) 50 Mg Tablet PO BID PRN Pain (Scale Score 4-6) Vitamin B Complex/Folic Acid 1 cap 11/07/24 09:00 11/14/24 13:22 Vitamin B Cmplx/Vit C/Folic Ac 1 Capsule PO 1 cap DAILY ARLYN Administration Vitamin D 50 mcg 11/07/24 09:00 11/14/24 13:22 Cholecalciferol (Vitamin D3) 25 Mcg (1,000 Units) Tablet PO 50 mcg DAILY ARLYN Administration Vitamin E 400 unit 11/07/24 09:00 11/14/24 13:21 Vitamin E 400 Unit Capsule PO 400 unit DAILY ARLYN Administration Zinc Sulfate 220 mg 11/07/24 09:00 11/14/24 13:22 Zinc Sulfate 220 Mg Capsule PO 220 mg QAM ARLYN Administration Radiology Results: ITS Impressions Upper Quadrant Ultrasound 11/10/24 15:21 IMPRESSION: Gallbladder not visualized, possibly secondary to cholecystectomy, correlate with surgical history. Hepatomegaly. Otherwise unremarkable right upper quadrant ultrasound findings. Chest X-Ray 11/12/24 07:04 Impression: Extensive right lung pneumonia. Chest CT 11/13/24 10:16 Impression: Patchy consolidation extensively involving the right lung is most compatible with pneumonia. Partial right middle lobe atelectasis and mild atelectatic change at the left lung base. Cardiomegaly with atherosclerotic disease. Labs Labs: Laboratory Tests 11/12/24 05:28 11/13/24 05:12
[2024-11-14] MEDS: VITAMIN E 400 UNIT CAPSULE PO (13:21)
[2024-11-14] MEDS: MAGNESIUM OXIDE 200 MG TABLET PO (13:21)
[2024-11-14] MEDS: CALCIUM ACETATE 667 MG TABLET PO (13:22)
[2024-11-14] MEDS: VITAMIN B CMPLX/VIT C/FOLIC AC 1 CAPSULE 1 CAP PO (13:22)
[2024-11-14] MEDS: CHOLECALCIFEROL (VITAMIN D3) 25 MCG (1,000 UNITS) TABLET 50 MCG PO (13:22)
[2024-11-14] MEDS: ZINC SULFATE 220 MG CAPSULE PO (13:22)
[2024-11-14] MEDS: guaiFENesin 12 HR 600 MG TABCR 1200 MG PO (13:22)
[2024-11-14] MEDS: FERROUS SULFATE 325 MG TABLET DR PO (13:22)
[2024-11-14] MEDS: ATORVASTATIN 40 MG TABLET PO (13:22)
[2024-11-14] MEDS: SERTRALINE HCL 50 MG TABLET PO (13:22)
[2024-11-14 15:22] LABS: Alveolar/Arterial O2 Gradient 31.1 mmHg; Fractional Inspired Oxygen 21 %; HCO3 ABG 34.7 mEq/l (22.0-26.0); Oxygen Content ABG 14.9 %vol (16.0-22.0); Oxygen Saturation ABG 93.4 % (95.0-100.0); PCO2 ABG 46.6 mmHg (35.0-45.0); PO2 ABG 62.8 mmHg (80.0-100.0); PO2 FiO2 Ratio Arterial Blood 2.99 %
[2024-11-14 15:23] LABS: Liters per Minute 0.0 LPM; Site Drawn RIGHT BRACHIAL
--- NOTE | 2024-11-14 15:52 | PCOTNOTE ---
Attempted to see pt for OT treatment this afternoon. Pt is currently with respiratory therapy and will be getting blood work and receiving a very lengthy breathing treatment soon. RT advised that therapist attempt at a later time. Will continue per poc duration/frequency.
--- NOTE | 2024-11-14 16:10 | PM.DS ---
DS: Admitting Diagnosis Discharge Date 11/14/2024 Admitting Diagnosis Shortness of breath DS: Discharge Diagnosis Discharge Diagnosis (1) Acute on chronic hypoxic respiratory failure: Code(s): J96.21 - Acute and chronic respiratory failure with hypoxia Status: Acute (2) Multifocal pneumonia: Code(s): J18.8 - Other pneumonia, unspecified organism Status: Acute (3) Respiratory failure with hypoxia and hypercapnia: Code(s): J96.91 - Respiratory failure, unspecified with hypoxia; J96.92 - Respiratory failure, unspecified with hypercapnia Status: Acute DS: Summary Hospital Course Hospital Course: 79-year-old female with a history of hypertension, diabetes mellitus, ESRD on HD, chronic respiratory failure, hypothyroidism, gout, depression presents with shortness of breath. She is typically dependent on wheelchair and walker, has been using chronic O2 since pneumonia and hospital admission in January 2024. Was treated for multifocal pneumonia, she received dialysis with Nephrology, her respiratory status improved. Seen by pulmonology, Dr. Quintero. Sniff test negative, respiratory pathogen panel is pending. She did well overnight on 2 L nasal cannula withHe and ABG on room air demonstrating pH 7.490 pCO2 46.6. She will be discharged in stable condition with 1 L at rest, 2 L with activity and at night, she has follow-up with Dr. Quintero and PCP. Was full code during the inpatient admission. Time Spent with Patient Time attestation: Total time spent providing and/or coordinating discharge services: Time spent: Greater than 30 minutes Exam Const: General: comfortable and no acute distress HENMT: Mouth: Yes moist mucous membranes Neck: Neck: supple Resp: Effort & Inspection: normal respiratory effort Other: Coarse breath sounds, otherwise scant crackles at the bases Cardio: Rate: regular rate Rhythm: regular rhythm Extrem: General: no edema DS: Data Data Completed and Pending Labs on day of discharge: Labs from last 24 hours 11/14/24 11/14/24 11/14/24 15:09 13:28 07:54 Puncture Site Right brachial ABG pH 7.490 H ABG pCO2 46.6 H ABG pO2 62.8 L ABG PO2/FiO2 Ratio 2.99 ABG HCO3 34.7 H ABG O2 Saturation 93.4 L ABG O2 Content 14.9 L ABG Base Excess 10.1 A-a Gradient 31.1 Oxyhemoglobin 92.1 Total Hemoglobin 11.5 L O2 Delivery Device Room air O2 Liters/Min 0.0 FiO2 21 POC Capillary Glucose 73 85 11/13/24 11/13/24 20:31 16:54 Puncture Site ABG pH ABG pCO2 ABG pO2 ABG PO2/FiO2 Ratio ABG HCO3 ABG O2 Saturation ABG O2 Content ABG Base Excess A-a Gradient Oxyhemoglobin Total Hemoglobin O2 Delivery Device O2 Liters/Min FiO2 POC Capillary Glucose 108 H 133 H Discharge Plan Discharge Attending physician on discharge: Tierra Gonzalez Consulting providers: Tara Morley; Lucio Quintero Discharging Clinician: Tierra Gonzalez Patient Disposition: Home with Home Health Service Activity: september shower Diet: as tolerated Discharge Instructions: Per Care Coordination. Patient to have [facility] for RN/PT/OT eval and treat [phone]. They will contact patient to arrange for visits. continue home o2, 1L at rest, 2L at night and on activity. f/u with Dr. Quintero's office. Patient Instructions: Antibiotic Form Patient Language: Mongolian Stand Alone Forms: General Discharge Information Follow-up/Referrals: Lucio Quintero MD [Physician] - Shahid Powell MD [Primary Care Provider] - Discharge Medications: Continued cholecalciferol (vitamin D3) 50 mcg (2,000 unit) capsule 50 mcg PO DAILY vitamin E (dl, acetate) 180 mg (400 unit) capsule 180 mg PO DAILY atorvastatin 40 mg tablet 40 mg PO DAILY ferrous sulfate [Feosol] 325 mg (65 mg iron) tablet 325 mg PO DAILY zinc 50 mg capsule 50 mg PO DAILY melatonin 10 mg tablet 20 mg PO HS magnesium 250 mg tablet 250 mg PO DAILY Triphrocaps 1 mg capsule 1 cap PO DAILY calcium acetate(phosphat bind) 667 mg capsule 667 mg PO TIDWM Qty: 150 12RF tramadol 50 mg tablet 100 mg PO BID PRN (Reason: Pain (Scale Score 4-6)) Qty: 120 4RF levothyroxine 112 mcg tablet See Rx Instructions .ROUTE .COMPLEX Qty: 90 2RF Dose Instruction: Take 1 tablet by mouth once daily Rx Instructions: Take 1 tablet by mouth once daily sertraline 50 mg tablet See Rx Instructions .ROUTE .COMPLEX Qty: 90 1RF Dose Instruction: Take 1 tablet by mouth once daily Rx Instructions: Take 1 tablet by mouth once daily Tradjenta 5 mg tablet See Rx Instructions .ROUTE .COMPLEX Qty: 90 0RF Dose Instruction: Take 1 tablet by mouth once daily Rx Instructions: Take 1 tablet by mouth once daily mirtazapine 30 mg tablet See Rx Instructions .ROUTE .COMPLEX Qty: 90 0RF Dose Instruction: TAKE 1 TABLET BY MOUTH ONCE DAILY AT BEDTIME Rx Instructions: TAKE 1 TABLET BY MOUTH ONCE DAILY AT BEDTIME Date of admission: 11/06/24 17:27 Primary Care Provider: Shahid Powell Admitting Provider: Jose Antonio Olvera Attending physician on admission: Jose Antonio Olvera Condition: Stable Hospitalist MIPS Heart Failure (Exclusion) Patient has history of Heart Transplant or Left Ventricular Assistive Device?: No IF YES, STOP HERE Heart Failure (Qualifier) Patient has current or prior documentation of LVEF less than or equal to 40%, or mod/servere depressed LVSF?: No IF NO, STOP HERE
--- NOTE | 2024-11-15 08:10 | P.CDI_ITS ---
<Statement entered by Tierra Gonzalez MD - 11/17/24 07:56> This documentation has been reviewed and approved. acute respiratory failure with hypoxia and hypercapnia CDI Query Clarification Request Please review the clinical information below and clarify the respiratory diagnosis the patient is being treated for: Hypoxia or hypoxemia without respiratory failure Respiratory distress without respiratory failure Acute respiratory failure with hypoxia Acute respiratory failure with hypercapnia Acute respiratory failure with hypoxia and hypercapnia Acute on chronic respiratory failure with hypoxia Acute on chronic respiratory failure with hypercapnia Acute on chronic respiratory failure with hypoxia and hypercapnia Acute respiratory distress syndrome (ARDS) Chronic respiratory failure with hypoxia Chronic respiratory failure with hypercapnia Chronic respiratory failure with hypoxia and hypercapnia Other explanation clinical findings, please specify Unable to determine The medical chart reflects the following: Progress note 2) Respiratory failure with hypoxia and hypercapnia: Code(s): J96.91 - Respiratory failure, unspecified with hypoxia; J96.92 - Respiratory failure, unspecified with hypercapnia Status: Acute Assessment and Plan: Patient with chronic hypoxemic respiratory failure related to post COVID influenza infection in June of 2024. She tells me she was on 3 L nasal cannula at rest, with activity and with sleep. Patient has a blood gas on 11/06/2023 with pH of 7.34/57/60 7 on half a L nasal cannula. On 11/09/2024 patient had restlessness and drowsiness at with an ABG of 7.24/68/126 and was placed on BiPAP. Repeat BiPAP gas 2 hours and 15 minutes later 7.31/57/69. Patient wore BiPAP overnight on 11/09/2024 an ABG the morning of 11/10/2024 of 7.35/52/117. She is a never smoker with no bullous emphysema on her CT scan. No Interstitial lung disease on her CT scan. I have no PFTs to determine if she has a restrictive abnormality. TSH 2.57 on 11/10/2024 without evidence of hypothyroidism. BMI is 24.0. Review of chest x-rays demonstrate no elevated right hemidiaphragm on 11/12/2023. next x-ray on 01/26/2024 shows an elevated right hemidiaphragm with persistence since then. 11/10/2024: Overnight oximetry on 1 L nasal cannula oxygen with recording duration 6 hours and 31 minutes. Average saturation 95 %, low saturation 79%. Time with saturation less than or equal to 88% was 15 minutes, oxygen desaturation index 6.5. 11/12/2024: Home O2 assessment: Rest room air saturation 87%. Rest nasal cannula 1 L saturation 93%. Exercise nasal cannula 1 L saturation 88%. Exercise nasal cannula 2 L saturation 92%. 11/13/24: Patient told me she could not tolerate the noninvasive ventilator and BiPAP settings last night and does not think she would be able to wear machine at home. Plan: Goal saturation 90-94%. I will leave the patient off BiPAP for 24 aleah rs and check a blood gas tomorrow morning to assess for chronic hypercarbic respiratory failure. I will perform an overnight oximetry on 2 L nasal cannula tonight. Discharge Diagnosis (1) Acute on chronic hypoxic respiratory failure: Code(s): J96.21 - Acute and chronic respiratory failure with hypoxia Status: Acute (2) Multifocal pneumonia: Code(s): J18.8 - Other pneumonia, unspecified organism Status: Acute (3) Respiratory failure with hypoxia and hypercapnia: Code(s): J96.91 - Respiratory failure, unspecified with hypoxia; J96.92 - Respiratory failure, unspecified with hypercapnia Status: Acute
== END 2024-11-14 17:15 | disposition home health service (06) | DRG 193 ==
LOC: ANHED 15:39 → ANH3MEDSUR 18:00 → ANHIMU 11-09 05:35 → ANH3MED 11-11 18:24
PROVIDERS: Internal Medicine Nephrology; Internal Medicine Pulmonary Disease; Nurse Practitioner; Nurse Practitioner Gerontology; Student in an Organized Health Care Education/Training Program; Admitting Provider Internal Medicine; Emergency Provider Student in an Organized Health Care Education/Training Program; PCP Family Medicine Adolescent Medicine; Visit Provider General Practice
DX: J18.9 Pneumonia, unspecified organism (principal); J96.21 Acute and chronic respiratory failure with hypoxia; J96.22 Acute and chronic respiratory failure with hypercapnia; N18.6 End stage renal disease; I12.0 Hypertensive chronic kidney disease with stage 5 chronic kidney disease or end stage renal disease; I47.29 Other ventricular tachycardia; E11.22 Type 2 diabetes mellitus with diabetic chronic kidney disease; E11.42 Type 2 diabetes mellitus with diabetic polyneuropathy; M17.0 Bilateral primary osteoarthritis of knee; M10.9 Gout, unspecified; F32.A Depression, unspecified; D63.1 Anemia in chronic kidney disease; E03.9 Hypothyroidism, unspecified; Z20.822 Contact with and (suspected) exposure to COVID-19; Z79.84 Long term (current) use of oral hypoglycemic drugs; Z99.81 Dependence on supplemental oxygen; Z99.2 Dependence on renal dialysis
CPT/HCPCS: 36415; 36600; 71045; 71046; 71250; 76000; 76705; 80053; 82375; 82607; 82746; 82805; 82948; 83036; 83050; 83735; 83880; 84100; 84145; 84443; 85018; 85025; 85027; 85055; 86706; 87040; 87070; 87205; 87340; 87637; 87641; 93005; 94002; 94003; 94618; 94640; 94667; 94668; 94762; 96374; 97110; 97116; 97161; 97165; 97530; 99285; A9270; G0257; J0456; J0696; J1644; J1938; J7030; P9047; Q5105

== ENCOUNTER 2025-04-24 13:50 | Outpatient (CLI) | payer MEDICARE, SELFPAY ==
--- NOTE | ~2025-04-24 | XR_ITS ---
EXAMINATION: XR chest 2V, 04/24/2025 13:53 FLOORLEADER HISTORY: R05.9 - Cough, unspecified COMPARISON: No comparisons available. Technique: 2 views obtained. Findings: Moderate pulmonary venous congestion. Scattered small infiltrates. No pneumothorax. Moderate cardiomegaly. Mediastinal and hilar contours are within normal limits. Bony thorax no acute abnormality. Left central line terminates in the SVC. Impression: CHF. Superimposed probable pneumonia. The findings appear progressed compared to the previous study Reviewed, dictated and finalized at location P. RLEADER Impression: CHF. Superimposed probable pneumonia. The findings appear progressed compared t o the previous study
== END 2025-04-24 13:51 | disposition home or self-care (01) ==
LOC: GOSHIMG 13:51
PROVIDERS: PCP Family Medicine Adolescent Medicine; Visit Provider Internal Medicine Nephrology
DX: R05.9 Cough, unspecified (principal); I50.9 Heart failure, unspecified
CPT/HCPCS: 71046